=== PATIENT | female | born 1950 | race Caucasian/White ===

== ENCOUNTER 2020-04-18 10:47 | Observation (INO) | payer MEDICARE, OTHER ==
[2020-04-18] MEDS ORDERED: FOLIC ACID-VIT B COMPLEX-VIT C 1 CAP PO SCH (12:00)
--- NOTE | 2020-04-18 12:09 | ED ---
General Adult HPI - General Chief complaint: Recheck/Abnormal Lab/Rx Stated complaint: Dialysis complication Time Seen by Provider: 04/18/20 11:15 Source: patient, family, RN notes reviewed Mode of arrival: wheelchair Limitations: physical limitation - History of Present Illness Initial comments: This is a 69-year-old female presents emergency Department with chief complaint of left arm graft comp locations. Patient states she has a graft for dialysis. Patient states that they tried to access it but there was dark blood within the area. Patient's dialysis nurse discussed the case with Dr. Redd who recommended patient come to the emergency department. Patient has no specific complaints at this time. Patient's had multiple surgeries on her left arm for her graft for dialysis. Patient has a history of polycystic kidney disease causing her renal failure. - Related Data Home Medications Medication Instructions Recorded Confirmed ALPRAZolam [Xanax] 1 mg PO Q8H PRN 04/18/20 04/18/20 Apixaban [Eliquis] 2.5 mg PO BID 04/18/20 04/18/20 Atorvastatin [Lipitor] 40 mg PO HS 04/18/20 04/18/20 Calcium Acetate [PhosLo] 1,334 mg PO AC-TID 04/18/20 04/18/20 Carvedilol [Coreg] 3.125 mg PO TUTHSA 04/18/20 04/18/20 INSULIN LISPRO (humaLOG) [humaLOG] See Protocol SQ AC-TID PRN MDD 04/18/20 04/18/20 OVER 150 Insulin Degludec [Tresiba 10 units SQ DAILY 04/18/20 04/18/20 Flextouch U-100] Ketoconazole [Nizoral A-D] 1 applic TOPICAL DAILY 04/18/20 04/18/20 Levocetirizine Dihydrochloride 5 mg PO DAILY 04/18/20 04/18/20 Levothyroxine Sodium [Synthroid] 150 mcg PO DAILY 04/18/20 04/18/20 Lidocaine 5% Oint [Xylocaine 5% 1 applic TOPICAL BID PRN 04/18/20 04/18/20 Oint] Lidocaine-Prilocaine Cream [Emla 1 applic TOPICAL DIRECTED PRN 04/18/20 04/18/20 Cream 2.5%/2.5%] Linaclotide [Linzess] 290 mcg PO HS 04/18/20 04/18/20 Losartan Potassium 50 mg PO DAILY 04/18/20 04/18/20 Methadone HCl [Methadone Intensol] 120 mg PO DAILY 04/18/20 04/18/20 Nephro-Ann Tab 1 tab PO TUTHSA 04/18/20 04/18/20 Omeprazole 20 mg PO DAILY 04/18/20 04/18/20 carvediloL [Coreg] 6.25 mg PO HS 04/18/20 04/18/20 hydrALAZINE HCL [Apresoline] 50 mg PO Q8H 04/18/20 04/18/20 Allergies Allergy/AdvReac Type Severity Reaction Status Date / Time pentazocine [From Talwin] AdvReac Unknown Verified 04/18/20 12:09 Review of Systems ROS Statement: Those systems with pertinent positive or pertinent negative responses have been documented in the HPI. ROS Other: All systems not noted in ROS Statement are negative. Past Medical History Past Medical History: Cancer, Dementia, Hypertension, Renal Disease Additional Past Medical History / Comment(s): Vulva cancer, multicystic kidneys History of Any Multi-Drug Resistant Organisms: None Reported Past Surgical History: Adenoidectomy, Tonsillectomy Additional Past Surgical History / Comment(s): Left arm dialysis graft, left aka, MACULAR DEGENERATION Past Psychological History: No Psychological Hx Reported Smoking Status: Current every day smoker Past Alcohol Use History: None Reported Past Drug Use History: None Reported General Exam Limitations: physical limitation General appearance: alert, in no apparent distress Head exam: Present: atraumatic, normocephalic, normal inspection ENT exam: Present: normal exam, mucous membranes moist Neck exam: Present: normal inspection. Absent: tenderness, meningismus, lymphadenopathy Respiratory exam: Present: normal lung sounds bilaterally. Absent: respiratory distress, wheezes, rales, rhonchi, stridor Cardiovascular Exam: Present: regular rate, normal rhythm, normal heart sounds. Absent: systolic murmur, diastolic murmur, rubs, gallop, clicks Extremities exam: Present: other (Graft Of the left upper extremity noted, pulses are equal bilaterally the upper, left lower extremity AKA noted) Neurological exam: Present: alert, oriented X3 Skin exam: Present: warm, dry, intact, normal color. Absent: rash Course Vital Signs 04/18/20 04/18/20 04/18/20 11:10 11:20 13:00 Temperature 97.3 F L 97.4 F L Pulse Rate 58 L 83 Respiratory 18 18 20 Rate Blood Pressure 114/71 113/102 O2 Sat by Pulse 97 97 Oximetry - Reevaluation(s) Reevaluation #1: 04/18/20 12:[address] pryor in the emergency department. Medical Decision Making - Medical Decision Making Patient evaluated by vascular in emergency department. Patient be admitted for possible thrombectomy. Patient admitted to medicine with consult to vascular - Lab Data Result diagrams: 04/18/20 12:47 04/18/20 12:47 Lab Results 04/18/20 04/18/20 04/18/20 Range/Units 12:47 12:47 12:47 WBC 10.6 (3.8-10.6) k/uL RBC 3.55 L (3.80-5.40) m/uL Hgb 11.6 (11.4-16.0) gm/dL Hct 35.0 (34.0-46.0) % MCV 98.5 (80.0-100.0) fL MCH 32.7 (25.0-35.0) pg MCHC 33.2 (31.0-37.0) g/dL RDW 13.4 (11.5-15.5) % Plt Count 176 (150-450) k/uL MPV 9.0 Neutrophils % 55 % Lymphocytes % 30 % Monocytes % 6 % Eosinophils % 4 % Basophils % 2 % Neutrophils # 5.8 (1.3-7.7) k/uL Lymphocytes # 3.2 (1.0-4.8) k/uL Monocytes # 0.6 (0-1.0) k/uL Eosinophils # 0.4 (0-0.7) k/uL Basophils # 0.3 H (0-0.2) k/uL PT 11.7 (9.0-12.0) sec INR 1.2 H (<1.2) APTT 28.6 (22.0-30.0) sec Sodium 131 L (137-145) mmol/L Potassium 6.6 H* (3.5-5.1) mmol/L Chloride 93 L (98-107) mmol/L Carbon Dioxide 29 (22-30) mmol/L Anion Gap 9 mmol/L BUN 76 H (7-17) mg/dL Creatinine 6.68 H (0.52-1.04) mg/dL Est GFR (CKD-EPI)AfAm 7 (>60 ml/min/1.73 sqM) Est GFR (CKD-EPI)NonAf 6 (>60 ml/min/1.73 sqM) Glucose 89 (74-99) mg/dL Calcium 8.7 (8.4-10.2) mg/dL Phosphorus 5.2 H (2.5-4.5) mg/dL Magnesium 2.2 (1.6-2.3) mg/dL Total Bilirubin 0.6 (0.2-1.3) mg/dL AST 26 (14-36) U/L ALT 17 (4-34) U/L Alkaline Phosphatase 112 (38-126) U/L Total Protein 7.1 (6.3-8.2) g/dL Albumin 3.7 (3.5-5.0) g/dL Disposition Clinical Impression: Complication of vascular graft, Chronic renal failure, Hyperkalemia Disposition: ADMITTED IP TO THIS [facility] Condition: Fair Referrals: Nonstaff,Physician [REFERRING] - 1-2 days
[2020-04-18 13:27] LABS: Basophils # (A) 0.3 k/uL (0-0.2); Basophils % (A) 2 %; Eosinophils # (A) 0.4 k/uL (0-0.7); Eosinophils % (A) 4 %; HGB 11.6 gm/dL (11.4-16.0); Lymphocytes # (A) 3.2 k/uL (1.0-4.8); Lymphocytes % (A) 30 %; MCH 32.7 pg (25.0-35.0); MCHC 33.2 g/dL (31.0-37.0); MCV 98.5 fL (80.0-100.0); Monocytes # (A) 0.6 k/uL (0-1.0); Monocytes % (A) 6 %; Neutrophils # (A) 5.8 k/uL (1.3-7.7); Neutrophils % (A) 55 %; Platelet Count 176 k/uL (150-450); RBC 3.55 m/uL (3.80-5.40); RDW 13.4 % (11.5-15.5); WBC 10.6 k/uL (3.8-10.6)
[2020-04-18 13:39] LABS: Albumin 3.7 g/dL (3.5-5.0); Calcium 8.7 mg/dL (8.4-10.2); INR 1.2 (<1.2); Magnesium 2.2 mg/dL (1.6-2.3); Partial Thromboplastin Time 28.6 sec (22.0-30.0); Phosphorus 5.2 mg/dL (2.5-4.5); Prothrombin Time 11.7 sec (9.0-12.0); Total Bilirubin 0.6 mg/dL (0.2-1.3); Total Protein 7.1 g/dL (6.3-8.2)
[2020-04-18] MEDS ORDERED: NALOXONE 0.4 MG/ML 1 ML VIAL IV PRN ×2 (13:44→14:06)
[2020-04-18 13:45] LABS: Potassium 6.6 mmol/L (3.5-5.1)
[2020-04-18] MEDS ORDERED: DEXTROSE 50% SYRINGE 50 ML IVP STA (13:54)
[2020-04-18] MEDS ORDERED: INSULIN REGULAR 100 UNIT/ML VIAL IV ONE (13:54)
[2020-04-18] MEDS ORDERED: FUROSEMIDE 10 MG/ML 2 ML VIAL IV ONE (13:59)
[2020-04-18] MEDS ORDERED: ACETAMINOPHEN TAB 325 MG TAB PO PRN (14:06)
[2020-04-18] MEDS ORDERED: ALPRAZolam 1 MG TAB PO PRN (14:09)
[2020-04-18] MEDS ORDERED: LIDOCAINE 5% OINTMENT 50 GM JAR TOPICAL PRN (14:09)
[2020-04-18] MEDS ORDERED: LIDOCAINE-PRILOCAINE 2.5-2.5% CREAM 5 GM TUBE TOPICAL PRN (14:09)
[2020-04-18 15:09] LABS: Glucose,Whole Blood 141 mg/dL (75-99)
--- NOTE | 2020-04-18 15:28 | P.GSCN ---
History of Present Illness Consult date: 04/18/20 Reason for Consult: Malfunctioning upper extremity AV graft, ESRD Requesting physician: Go Arana History of present illness: Is a 69-year-old female patient who presented to the emergency department with a chief complaint that her left upper extremity AV graft was having complications during her hemodialysis yesterday. The patient states she gets hemodialysis Friday, , Friday over this week she was supposed to go Friday due to the holiday. She went yesterday for hemodi alysis however when they went to access the graft there was dark blood that appeared to be clotted. The patient states she has had multiple surgeries in the left upper extremity for her raft. I see the patient has a past medical history that includes hypertension, diabetes mellitus, AKA, and end stage renal disease along with vulvar cancer. The patient states her renal disease and hemodialysis is related to multicystic kidneys. 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 Admission labs WBC 10.6, hemoglobin 11.6, hematocrit 35, platelets 176, INR 1.2. Sodium 131, potassium 6.6, chloride 93, BUN 76 and creatinine 6.68. The patient takes Eliquis 2.5 mg BID Review of Systems A 14 point review of system was completed all pertinent positives and negatives as stated in the HPI Past Medical History Past Medical History: Cancer, Dementia, Hypertension, Renal Disease Additional Past Medical History / Comment(s): Vulva cancer, multicystic kidneys History of Any Multi-Drug Resistant Organisms: None Reported Past Surgical History: Adenoidectomy, Tonsillectomy Additional Past Surgical History / Comment(s): Left arm dialysis graft, left aka, MACULAR DEGENERATION Past Psychological History: No Psychological Hx Reported Smoking Status: Current every day smoker Past Alcohol Use History: None Reported Past Drug Use History: None Reported Medications and Allergies Home Medications Medication Instructions Recorded Confirmed Type ALPRAZolam [Xanax] 1 mg PO Q8H PRN 04/18/20 04/18/20 History Apixaban [Eliquis] 2.5 mg PO BID 04/18/20 04/18/20 History Atorvastatin [Lipitor] 40 mg PO HS 04/18/20 04/18/20 History Calcium Acetate [PhosLo] 1,334 mg PO AC-TID 04/18/20 04/18/20 History Carvedilol [Coreg] 3.125 mg PO TUTHSA 04/18/20 04/18/20 History INSULIN LISPRO (humaLOG) [humaLOG] See Protocol SQ AC-TID PRN MDD 04/18/20 History OVER 150 Insulin Degludec [Tresiba 10 units SQ DAILY 04/18/20 04/18/20 History Flextouch U-100] Ketoconazole [Nizoral A-D] 1 applic TOPICAL DAILY 04/18/20 04/18/20 History Levocetirizine Dihydrochloride 5 mg PO DAILY 04/18/20 04/18/20 History Levothyroxine Sodium [Synthroid] 150 mcg PO DAILY 04/18/20 04/18/20 History Lidocaine 5% Oint [Xylocaine 5% 1 applic TOPICAL BID PRN 04/18/20 04/18/20 History Oint] Lidocaine-Prilocaine Cream [Emla 1 applic TOPICAL DIRECTED PRN 04/18/20 04/18/20 History Cream 2.5%/2.5%] Linaclotide [Linzess] 290 mcg PO HS 04/18/20 04/18/20 History Losartan Potassium 50 mg PO DAILY 04/18/20 04/18/20 History Methadone HCl [Methadone Intensol] 120 mg PO DAILY 04/18/20 04/18/20 History Nephro-Ann Tab 1 tab PO TUTHSA 04/18/20 04/18/20 History Omeprazole 20 mg PO DAILY 04/18/20 04/18/20 History carvediloL [Coreg] 6.25 mg PO HS 04/18/20 04/18/20 History hydrALAZINE HCL [Apresoline] 50 mg PO Q8H 04/18/20 04/18/20 History Allergies Allergy/AdvReac Type Severity Reaction Status Date / Time pentazocine [From Kimmie] AdvReac Unknown Verified 04/18/20 12:09 Surgical - Exam Vital Signs Temp Pulse Resp BP Pulse Ox 97.3 F L 58 L 18 114/71 97 04/18/20 11:10 04/18/20 11:10 04/18/20 11:10 04/18/20 11:10 04/18/20 11:10 General appearance: The patient is alert, oriented, in no acute distress. HET: Head is normocephalic and atraumatic. Neck: Supple without lymphadenopathy. Trachea midline. Heart: S1 S2. Regular rate and rhythm. Lungs: No crackles or wheezes are heard. Abdomen: Soft, nontender, nondistended. Extremities: Normal skin color and turgor. Left [id number] amputation. Right lower extremity without any edema. Radial pulses are 2/4 bilaterally. No palpable thrill at the left upper extremity AV graft. Neurological: No focal deficits. Strength and sensation are grossly intact. Results - Labs 04/18/20 12:47 04/18/20 12:47 Abnormal Lab Results - Last 24 Hours (Table) 04/18/20 04/18/20 04/18/20 Range/Units 12:47 12:47 12:47 RBC 3.55 L (3.80-5.40) m/uL Basophils # 0.3 H (0-0.2) k/uL INR 1.2 H (<1.2) Sodium 131 L (137-145) mmol/L Potassium 6.6 H* (3.5-5.1) mmol/L Chloride 93 L (98-107) mmol/L BUN 76 H (7-17) mg/dL Creatinine 6.68 H (0.52-1.04) mg/dL Phosphorus 5.2 H (2.5-4.5) mg/dL Diabetes panel 04/18/20 Range/Units 12:47 Sodium 131 L (137-145) mmol/L Potassium 6.6 H* (3.5-5.1) mmol/L Chloride 93 L (98-107) mmol/L Carbon Dioxide 29 (22-30) mmol/L BUN 76 H (7-17) mg/dL Creatinine 6.68 H (0.52-1.04) mg/dL Glucose 89 (74-99) mg/dL Calcium 8.7 (8.4-10.2) mg/dL AST 26 (14-36) U/L ALT 17 (4-34) U/L Alkaline Phosphatase 112 (38-126) U/L Total Protein 7.1 (6.3-8.2) g/dL Albumin 3.7 (3.5-5.0) g/dL Calcium panel 04/18/20 Range/Units 12:47 Calcium 8.7 (8.4-10.2) mg/dL Phosphorus 5.2 H (2.5-4.5) mg/dL Albumin 3.7 (3.5-5.0) g/dL Pituitary panel 04/18/20 Range/Units 12:47 Sodium 131 L (137-145) mmol/L Potassium 6.6 H* (3.5-5.1) mmol/L Chloride 93 L (98-107) mmol/L Carbon Dioxide 29 (22-30) mmol/L BUN 76 H (7-17) mg/dL Creatinine 6.68 H (0.52-1.04) mg/dL Glucose 89 (74-99) mg/dL Calcium 8.7 (8.4-10.2) mg/dL Adrenal panel 04/18/20 Range/Units 12:47 Sodium 131 L (137-145) mmol/L Potassium 6.6 H* (3.5-5.1) mmol/L Chloride 93 L (98-107) mmol/L Carbon Dioxide 29 (22-30) mmol/L BUN 76 H (7-17) mg/dL Creatinine 6.68 H (0.52-1.04) mg/dL Glucose 89 (74-99) mg/dL Calcium 8.7 (8.4-10.2) mg/dL Total Bilirubin 0.6 (0.2-1.3) mg/dL AST 26 (14-36) U/L ALT 17 (4-34) U/L Alkaline Phosphatase 112 (38-126) U/L Total Protein 7.1 (6.3-8.2) g/dL Albumin 3.7 (3.5-5.0) g/dL Assessment and Plan Assessment: 1. Nonfunctioning left upper extremity AV graft 2. End-stage renal disease requiring hemodialysis 3. Hyponatremia 4. Hyperkalemia Plan: The patient is scheduled for a fistulogram with possible thrombectomy with Dr. Rayo this afternoon. Emergency room nurse to be in contact with nephrology regarding proceeding with fistulogram with possible thrombectomy or if they feel patient will need emergent hemodialysis with a temporary site before proceeding with possible thrombectomy. Dr. Hernandez has been contacted and recommends temporary hemodialysis catheter at the bedside with a 2 hour hemodialysis treatment. We'll cancel the fistulogram with possible thrombectomy for today. Hemodialysis per recommendations from nephrology. Repeat labs in the morning. Further recommendations to follow. Thank you for this consultation allowing us take part in the plan of care of your patient during her hospital stay. The impression and plan of care has been dictated as directed. I performed a history and examination of this patient, discussed the same with the dictator. I agree with the dictator's note ,documented as a scribe. Any additional findings or plans will be noted.
[2020-04-18] MEDS ORDERED: CALCIUM GLUCONATE 1 GM in SODIUM CHLORIDE 0.9% 100 ML IVPB ONE (16:00)
[2020-04-18] MEDS ORDERED: HEPARIN SODIUM,PORCINE 5,000 UNIT/ML 1 ML VIAL SQ SCH (16:00)
[2020-04-18] MEDS: hydrALAZINE HCL 50 MG TAB PO SCH (16:23)
--- NOTE | 2020-04-18 16:27 | P.HPIM ---
History of Present Illness H&P Date: 04/18/20 Chief Complaint: Thrombosed fistula 69 year old woman with ESRD, HTN, Dementia, Chronic Methadone Use presented at request from her nephrology provider for fistula access issues. Patient herself has no complaints. She relays to me that she went to dialysis for her routine session, however, when the dialysis nurse attempted to access her fistula, she tiesha back thick, dark blood. This was discussed with her stake driver and patient was asked to come to the emergency room for evaluation by vascular surgery. In the ER, she was found to have a thrombosed fistula and plan is to take her to the OR for thrombectomy and dialysis afterward. Her BMP was notable for elevated K to 6.8, for which she rec'd D50/Insulin. Review of Systems All Systems reviewed and pertinent positives and negatives noted in HPI, all other symptoms are negative Past Medical History Past Medical History: Cancer, Dementia, Hypertension, Renal Disease Additional Past Medical History / Comment(s): Vulva cancer, multicystic kidneys History of Any Multi-Drug Resistant Organisms: None Reported Past Surgical History: Adenoidectomy, Tonsillectomy Additional Past Surgical History / Comment(s): Left arm dialysis graft, left aka , MACULAR DEGENERATION Past Psychological History: No Psychological Hx Reported Smoking Status: Current every day smoker Past Alcohol Use History: None Reported Past Drug Use History: None Reported Medications and Allergies Home Medications Medication Instructions Recorded Confirmed Type ALPRAZolam [Xanax] 1 mg PO Q8H PRN 04/18/20 04/18/20 History Apixaban [Eliquis] 2.5 mg PO BID 04/18/20 04/18/20 History Atorvastatin [Lipitor] 40 mg PO HS 04/18/20 04/18/20 History Calcium Acetate [PhosLo] 1,334 mg PO AC-TID 04/18/20 04/18/20 History Carvedilol [Coreg] 3.125 mg PO TUTHSA 04/18/20 04/18/20 History INSULIN LISPRO (humaLOG) [humaLOG] See Protocol SQ AC-TID PRN MDD 04/18/20 04/18/20 History OVER 150 Insulin Degludec [Tresiba 10 units SQ DAILY 04/18/20 04/18/20 History Flextouch U-100] Ketoconazole [Nizoral A-D] 1 applic TOPICAL DAILY 04/18/20 04/18/20 History Levocetirizine Dihydrochloride 5 mg PO DAILY 04/18/20 04/18/20 History Levothyroxine Sodium [Synthroid] 150 mcg PO DAILY 04/18/20 04/18/20 History Lidocaine 5% Oint [Xylocaine 5% 1 applic TOPICAL BID PRN 04/18/20 04/18/20 History Oint] Lidocaine-Prilocaine Cream [Emla 1 applic TOPICAL DIRECTED PRN 04/18/20 04/18/20 History Cream 2.5%/2.5%] Linaclotide [Linzess] 290 mcg PO HS 04/18/20 04/18/20 History Losartan Potassium 50 mg PO DAILY 04/18/20 04/18/20 History Methadone HCl [Methadone Intensol] 120 mg PO DAILY 04/18/20 04/18/20 History Nephro-Ann Tab 1 tab PO TUTHSA 04/18/20 04/18/20 History Omeprazole 20 mg PO DAILY 04/18/20 04/18/20 History carvediloL [Coreg] 6.25 mg PO HS 04/18/20 04/18/20 History hydrALAZINE HCL [Apresoline] 50 mg PO Q8H 04/18/20 04/18/20 History Allergies Allergy/AdvReac Type Severity Reaction Status Date / Time pentazocine [From Kimmie] AdvReac Unknown Verified 04/18/20 12:09 Physical Exam Osteopathic Statement: *. No significant issues noted on an osteopathic structural exam other than those noted in the History and Physical/Consult. Vitals: Vital Signs Temp Pulse Resp BP Pulse Ox 04/18/20 14:52 63 18 110/56 97 04/18/20 13:00 97.4 F L 83 20 113/102 97 04/18/20 11:20 18 04/18/20 11:10 97.3 F L 58 L 18 114/71 97 Intake and Output 04/18/20 04/18/20 04/18/20 06:59 14:59 22:59 Other: Weight 63.503 kg Gen: awake, alert HEENT: normocephalic, atraumatic, good hearing acuity, moist mucous membranes Resp: CTAB, good air exchange, no accessory muscle use, no wheezes, crackles, rhonchi CVS: good distal perfusion x 4, RRR, no murmurs, clicks, gallops GI: soft, NTTP, ND : no SPT, no CVAT, mayorga catheter not present MSK: no pitting edema, no clubbing Neuro: non-focal, no sensory deficits, appropriate tone Psych: cooperative, euthymic mood Results CBC & Chem 7: 04/18/20 12:47 04/18/20 12:47 Labs: Abnormal Lab Results - Last 24 Hours (Table) 04/18/20 04/18/20 04/18/20 Range/Units 12:47 12:47 12:47 RBC 3.55 L (3.80-5.40) m/uL Basophils # 0.3 H (0-0.2) k/uL INR 1.2 H (<1.2) Sodium 131 L (137-145) mmol/L Potassium 6.6 H* (3.5-5.1) mmol/L Chloride 93 L (98-107) mmol/L BUN 76 H (7-17) mg/dL Creatinine 6.68 H (0.52-1.04) mg/dL POC Glucose (mg/dL) (75-99) mg/dL Phosphorus 5.2 H (2.5-4.5) mg/dL 04/18/20 Range/Units 15:08 RBC (3.80-5.40) m/uL Basophils # (0-0.2) k/uL INR (<1.2) Sodium (137-145) mmol/L Potassium (3.5-5.1) mmol/L Chloride (98-107) mmol/L BUN (7-17) mg/dL Creatinine (0.52-1.04) mg/dL POC Glucose (mg/dL) 141 H (75-99) mg/dL Phosphorus (2.5-4.5) mg/dL Assessment and Plan Assessment: 1. A-V Fistula Thombosis 2. ESRD on iHD 3. Dementia 4. Chronic Methadone Use 5. Hypertension 69 year old ESRD patient presented after her dialysis center had trouble accessing her fistula; sent by her stake driver for evaluation by vascular surgery in the ER. Plan: - admit to observation, telemetry - plan for OR today, then iHD afterward - vascular c/s - nephrology c/s - s/p D50/Insulin - daily BMP, Mg - home medications were reconciled Full Code
--- NOTE | 2020-04-18 18:34 | P.PCN ---
Date of Procedure: 04/18/20 Preoperative Diagnosis: chronic kidney disease, thrombosed left upper extremity brachial axillary graft Postoperative Diagnosis: same Procedure(s) Performed: right femoral vein temporary hemodialysis catheter placement under ultrasound guidance Anesthesia: local Surgeon: Ubaldo Rayo Estimated Blood Loss (ml): 5 Pathology: none sent Disposition: floor Indications for Procedure: 69-year-old female with history of end-stage renal disease on hemodialysis via left upper extremity brachial axillary vein graft presented to the emergency department secondary to thrombosed graft noted at the dialysis center. Her last dialysis was on Friday and her labs demonstrated significant elevation of her potassium therefore she is in need of hemodialysis. We were gone to perform a percutaneous thrombectomy of the graft and with attempt to revascularize but due to her electrolyte abnormalities she will need dialysis prior to any surgical intervention. Description of Procedure: After written informed consent was obtained and all risks, benefits, competition s were described the procedure was performed at bedside. Utilizing ultrasound the right common femoral vein was visualized and shown to be patent without any thrombus. Utilizing a multipurpose needle the right common femoral vein was accessed. Dark nonpulsatile blood flow was visualized. Guidewire was placed and needle was removed. Serial dilation was then performed and a 20 cm straight Mahurkar dialysis catheter was then guided over the guidewire. Guidewire was then removed and ports were assessed for patency. All ports were easily flushed and hep-locked. The catheter was then sutured in place with nylon suture. The area was then cleansed and dressings were placed. Patient tolerated procedure well.
[2020-04-18] MEDS: CALCIUM ACETATE 667 MG TAB PO SCH (18:35)
[2020-04-18] MEDS: INSULIN ASPART (NovoLOG) 100 UNIT/ML VIAL SQ SCH (18:35)
[2020-04-18 20:04] LABS: Glucose,Whole Blood 156 mg/dL (75-99)
[2020-04-18] MEDS: LINACLOTIDE 290 MCG PO SCH (22:17)
[2020-04-18] MEDS: ATORVASTATIN 40 MG TAB PO SCH (22:17)
[2020-04-18] MEDS: APIXABAN 2.5 MG TABLET PO SCH (22:17)
[2020-04-18] MEDS: carvediloL 6.25 MG TAB PO SCH (22:17)
[2020-04-19] MEDS: hydrALAZINE HCL 50 MG TAB PO SCH ×3 (00:15→17:03)
[2020-04-19 06:51] LABS: Glucose,Whole Blood 135 mg/dL (75-99)
[2020-04-19] MEDS: CALCIUM ACETATE 667 MG TAB PO SCH ×3 (09:22→18:01)
[2020-04-19 09:28] LABS: Basophils # (A) 0.1 k/uL (0-0.2); Basophils % (A) 1 %; Eosinophils # (A) 0.2 k/uL (0-0.7); Eosinophils % (A) 3 %; HCT 34.1 % (34.0-46.0); Lymphocytes # (A) 2.5 k/uL (1.0-4.8); Lymphocytes % (A) 30 %; MCHC 32.3 g/dL (31.0-37.0); MCV 99.2 fL (80.0-100.0); Mean Platelet Volume 9.2; Monocytes # (A) 0.7 k/uL (0-1.0); Monocytes % (A) 8 %; Neutrophils # (A) 4.6 k/uL (1.3-7.7); Neutrophils % (A) 55 %; Platelet Count 189 k/uL (150-450); RBC 3.43 m/uL (3.80-5.40); RDW 13.6 % (11.5-15.5); WBC 8.3 k/uL (3.8-10.6)
[2020-04-19 09:49] LABS: Calcium 8.7 mg/dL (8.4-10.2); Magnesium 2.2 mg/dL (1.6-2.3); Potassium 5.3 mmol/L (3.5-5.1)
[2020-04-19] MEDS ORDERED: IV FLUID CONTINUATION 1,000 ML IV ONE (10:44)
[2020-04-19] MEDS: LIDOCAINE 1% INJ 10MG/ML (20 ML MDV) SQ ONE ×2 (10:51→11:32)
[2020-04-19] MEDS ORDERED: ALTEPLASE BOLUS 1 MG/1 ML SYRINGE IV STA (10:57)
[2020-04-19] MEDS ORDERED: ALTEPLASE 2 MG VIAL (CATHFLO) IV STA (11:02)
[2020-04-19] MEDS ORDERED: ALTEPLASE BOLUS 1 MG/1 ML SYRINGE IV ONE (11:08)
[2020-04-19] MEDS ORDERED: MIDAZOLAM 2 MG/2 ML VIAL IV ONE ×2 (11:26→13:04)
[2020-04-19] MEDS ORDERED: fentaNYL (PF) 50 MCG/ML 2 ML AMP IVP ONE (11:33)
[2020-04-19] MEDS ORDERED: IOPAMIDOL-250 50ML BTL INTRAARTER ONE (12:20)
[2020-04-19] MEDS ORDERED: LIDOCAINE 1% INJ 10MG/ML (20 ML MDV) SQ ONE (13:03)
[2020-04-19] MEDS ORDERED: HYDROmorphone 1 MG/ML 1 ML SYRINGE IVP ONE (13:04)
--- NOTE | 2020-04-19 13:39 | P.OP ---
Date of Procedure: 04/19/20 Description of Procedure: Preoperative diagnosis: ESRD, malfunctioning LUE AVG Postoperative diagnosis: Same Procedure: 1. US guided right internal jugular vein access #2 superior venacavogram with interpretation #3 placement of tunneled central line for hemodialysis #4 24 minutes moderate conscious sedation 5. Removal of right femoral vein central venous catheter Surgeon: Abby Redd D.O. EBL: Less than 10 mL IV fluids: [See records] Urine output: [None] Drains: [None] Complications: [None immediately apparent] Condition: [Stable] Operative indication and findings: [The patient is a 69 old female with a previous left upper extremity brachial to axillary graft. It was found to be thrombosed yesterday and she underwent placement of a temporary central venous catheter for dialysis in her femoral vein. Today she underwent attempted thrombolysis to reopen her fistula but it was found to be inadequate for continued dialysis due to significant venous outflow obstructions. The plan was then to take and place a tunneled dialysis catheter. Verbal consent was obtained over the phone from the patient's family. At the time of the procedure there was some resistance upon passing the wire initially therefore micro-axis was utilized. A superior venacavogram was performed with no significant obvious areas of obstruction, likely there is some degree of stenosis at the internal jugular but unable to demonstrate via venography] Procedure in detail: [Patient was taken to the special suite from a previous procedure, the right neck was prepped and draped in usual sterile fashion and preprocedure timeout was performed and all parties in agreement. The offset was utilized in the right internal jugular vein was identified the skin overlying was anesthetized 1% lidocaine plain. Using a multipurpose needle the vein was accessed with return of dark venous nonpulsatile blood. A guidewire was passed did not continue into the superior vena cava. At that point the wire and needle were removed and this was performed again, with axis on first stick once more. Again the same issue happening was confirmed with fluoroscopy that the wire was passing the needle into the internal jugular, but there was no ability to pass the wire further. Attempts were made to perform a venogram through the needle but with the patient's respirations and fluctuation of her vein, there was no ability to do so from this. At that point a micro-needle was used, a microwire passed easily into the superior vena cava and a microcatheter was placed. A superior venacavogram was performed without any significant or obvious areas of stenosis. A guidewire was placed down into the inferior vena cava. At that point tunnel was anesthetized and neck and the skin was made in the anterior chest wall proximal and 2 cm inferior to the clavicle. The catheter was tunneled. Serial dilation was performed over the wire under fluoroscopic visualization. The tear-away sheath was placed. The previous a tunneled catheter was placed through the tear-away sheath and the tear-away sheath was and removed. The catheter was aspirated and flushed freely. Heparinized saline was instilled. The neck incision was reapproximated with interrupted sutures of 4-0 Vicryl. The catheter was sutured in place with 3-0 nylon. Dressings were placed. The catheter from the right femoral vein was removed. The patient was allowed to awaken from sedation and transported to recovery in stable condition. A post procedure chest x-ray is pending.
--- NOTE | 2020-04-19 14:42 | XR ---
EXAMINATION TYPE: XR chest 1V portable DATE OF EXAM: 04/19/2020 HISTORY: Shortness of breath. COMPARISON: None. TECHNIQUE: Single view of the chest is submitted. FINDINGS: Demonstrated are scattered senescent parenchymal change. There is no evidence for focal infiltrate. Double-lumen central venous line with its distal tip overl guille the SVC. No evidence for pneumothorax. The heart is stable. Hilar and mediastinal structures are within normal limits. Degenerative changes are seen of the dorsal spine. IMPRESSION: 1. Chronic changes without evidence for acute pulmonary disease.
--- NOTE | 2020-04-19 16:00 | P.NPCON ---
History of Present Illness - Reason for Consult end stage renal disease - History of Present Illness Reason for consultation: End-stage renal disease History of present illness: Patient is a 69-year-old female seen in renal consultation for end-stage renal disease. She is maintained on hemodialysis on Friday schedule. She went for dialysis on Friday due to holiday schedule and her AV graft was clotted. Therefore she came to the hospital. She underwent declot of the AV graft today but was unsuccessful. She had a permacath placed. She also underwent femoral catheter placement yesterday before she went for the declot as a potassium was high. She completed hemodialysis and then went for the declot. Femoral catheter has been discontinued. She is currently seen while undergoing hemodialysis using a permacath. Denies chest pain or shortness of breath. Oral intake is good. No vomiting or diarrhea. No fever or chills. Potassium level was 5.3 this morning. Blood pressure stable. She does make urine. No active complaints. She wants to go home. Vital signs are stable. General: The patient appeared well nourished and normally developed. HEENT: Head exam is unremarkable. Neck is without jugular venous distension. LUNGS: Breath sounds decreased. HEART: Rate and Rhythm are regular. ABDOMEN: Soft, nontender. EXTREMITITES: No edema. Past Medical History Past Medical History: Cancer, Dementia, Hypertension, Renal Disease Additional Past Medical History / Comment(s): Vulva cancer, multicystic kidneys History of Any Multi-Drug Resistant Organisms: None Reported Past Surgical History: Adenoidectomy, Tonsillectomy Additional Past Surgical History / Comment(s): Left arm dialysis graft, left aka, MACULAR DEGENERATION Past Anesthesia/Blood Transfusion Reactions: No Reported Reaction Past Psychological History: No Psychological Hx Reported Smoking Status: Current every day smoker Past Alcohol Use History: None Reported Past Drug Use History: None Reported Medications and Allergies Home Medications Medication Instructions Recorded Confirmed Type ALPRAZolam [Xanax] 1 mg PO Q8H PRN 04/18/20 04/18/20 History Apixaban [Eliquis] 2.5 mg PO BID 04/18/20 04/18/20 History Atorvastatin [Lipitor] 40 mg PO HS 04/18/20 04/18/20 History Calcium Acetate [PhosLo] 1,334 mg PO AC-TID 04/18/20 04/18/20 History Carvedilol [Coreg] 3.125 mg PO TUTHSA 04/18/20 04/18/20 History INSULIN LISPRO (humaLOG) [humaLOG] See Protocol SQ AC-TID PRN MDD 04/18/20 04/18/20 History OVER 150 Insulin Degludec [Tresiba 10 units SQ DAILY 04/18/20 04/18/20 History Flextouch U-100] Ketoconazole [Nizoral A-D] 1 applic TOPICAL DAILY 04/18/20 04/18/20 History Levocetirizine Dihydrochloride 5 mg PO DAILY 04/18/20 04/18/20 History Levothyroxine Sodium [Synthroid] 150 mcg PO DAILY 04/18/20 04/18/20 History Lidocaine 5% Oint [Xylocaine 5% 1 applic TOPICAL BID PRN 04/18/20 04/18/20 History Oint] Lidocaine-Prilocaine Cream [Emla 1 applic TOPICAL DIRECTED PRN 04/18/20 04/18/20 History Cream 2.5%/2.5%] Linaclotide [Linzess] 290 mcg PO HS 04/18/20 04/18/20 History Losartan Potassium 50 mg PO DAILY 04/18/20 04/18/20 History Methadone HCl [Methadone Intensol] 120 mg PO DAILY 04/18/20 04/18/20 History Nephro-Ann Tab 1 tab PO TUTHSA 04/18/20 04/18/20 History Omeprazole 20 mg PO DAILY 04/18/20 04/18/20 History carvediloL [Coreg] 6.25 mg PO HS 04/18/20 04/18/20 History hydrALAZINE HCL [Apresoline] 50 mg PO Q8H 04/18/20 04/18/20 History Allergies Allergy/AdvReac Type Severity Reaction Status Date / Time pentazocine [From Kimmie] AdvReac Unknown Verified 04/18/20 12:09 Physical Exam Vitals: Vital Signs Temp Pulse Resp BP Pulse Ox 04/19/20 14:03 98.8 F 18 148/52 04/19/20 09:05 98.1 F 72 18 150/70 95 04/19/20 04:00 99.0 F 73 18 144/65 94 L 04/19/20 00:00 97.3 F L 74 18 136/62 94 L 04/18/20 20:58 97.4 F L 76 16 123/51 04/18/20 20:00 97.7 F 75 18 124/67 93 L 04/18/20 18:31 97.4 F L 60 18 114/50 94 L Intake and Output 04/19/20 04/19/20 04/19/20 06:59 14:59 22:59 Intake Total 50 Output Total 0 1050 Balance 0 -1000 Intake: IV 50 Oral 0 Output: Urine 0 100 Hemodialysis 400 Estimated Blood Loss 550 Other: # Voids 1 # Bowel Movements 0 Weight 139.5 kg Results - Lab Results Most recent lab results Calcium 8.7 mg/dL (8.4-10.2) 04/19/20 07:37 Phosphorus 5.2 mg/dL (2.5-4.5) H 04/18/20 12:47 Magnesium 2.2 mg/dL (1.6-2.3) 04/19/20 07:37 04/19/20 07:37 04/19/20 07:37 Assessment and Plan Plan: Assessment: 1. End-stage renal disease maintained on hemodialysis on Friday schedule. 2. Clotted AV graft status post unsuccessful declot attempt this morning. 3. Hyperkalemia status post urgent hemodialysis yesterday. 4. Status post permacath placement this morning. 5. Diabetes mellitus. 6. Hypertension with chronic kidney disease. Stable. Plan: Currently seen while undergoing hemodialysis. Next treatment on Friday. Monitor hemoglobin and she did have a hematoma at the femoral catheter site. Potential discharge tomorrow. Thank you for the consultation. I will continue to follow the patient with you during her hospital stay.
[2020-04-19] MEDS: INSULIN ASPART (NovoLOG) 100 UNIT/ML VIAL SQ SCH ×3 (16:51→18:01)
[2020-04-19] MEDS: INSULIN DETEMIR (LEVEMIR) 100 UNIT/ML SYR SQ SCH (16:51)
[2020-04-19] MEDS: KETOCONAZOLE 2% SHAMPOO 1 APPLIC/ML TOPICAL SCH (16:52)
[2020-04-19] MEDS: APIXABAN 2.5 MG TABLET PO SCH ×2 (16:52→20:52)
[2020-04-19] MEDS: LOSARTAN 50 MG TAB PO SCH (16:53)
[2020-04-19] MEDS: LEVOTHYROXINE 75 MCG TAB PO SCH (16:53)
[2020-04-19] MEDS: LORATADINE 10 MG TAB PO SCH (16:56)
[2020-04-19] MEDS: PANTOPRAZOLE 40 MG TABLET PO SCH (16:56)
[2020-04-19] MEDS: METHADONE 10 MG TAB PO SCH ×2 (16:57→23:23)
[2020-04-19 17:17] LABS: Glucose,Whole Blood 185 mg/dL (75-99)
--- NOTE | 2020-04-19 17:17 | IR ---
EXAMINATION TYPE: IR mech remov intraluminal mat DATE OF EXAM: 04/19/2020 COMPARISON: NONE HISTORY: Process of AV fistula TECHNIQUE: Fluoroscopy. FINDINGS: Fluoroscopic guidance was provided during procedure for performing physician. A total of 17.5 minutes of fluoroscopic time was utilized during the procedure and 424 images acquired. Please s ee operative report for additional details. IMPRESSION: As Above.
--- NOTE | 2020-04-19 17:18 | IR ---
EXAMINATION TYPE: IR cvc insert central tunneled DATE OF EXAM: 04/19/2020 COMPARISON: NONE HISTORY: Dialysis. Thrombosis of AV fistula. TECHNIQUE: Fluoroscopy. FINDINGS: Fluoroscopic guidance was provided during procedure for performing physician. A total of 0.9 minutes of fluoroscopic time was utilized during the procedure and 56 images acquired. IMPRESSION: As Above.
--- NOTE | 2020-04-19 17:59 | P.PN ---
Subjective Progress Note Date: 04/19/20 Pt had unsuccessful thrombectomy, and had permacath placement. Now undergoing dialysis. Objective - Vital Signs Vital signs: Vital Signs Temp 98.8 F 04/19/20 17:31 Pulse 91 04/19/20 17:31 Resp 18 04/19/20 17:31 BP 127/69 04/19/20 17:31 Pulse Ox 95 04/19/20 09:05 Intake & Output 04/18/20 04/19/20 04/19/20 18:59 06:59 18:59 Intake Total 225 50 Output Total 500 1720 Balance 225 -500 -1670 Weight 63.503 kg 139.5 kg Intake: IV 50 Oral 225 0 Output: Urine 0 100 Hemodialysis 500 1070 Estimated Blood Loss 550 Other: # Voids 1 # Bowel Movements 0 - Exam Gen: awake, alert HEENT: normocephalic, atraumatic, good hearing acuity, moist mucous membranes Resp: CTAB, good air exchange, no accessory muscle use, no wheezes, crackles, rhonchi CVS: good distal perfusion x 4, RRR, no murmurs, clicks, gallops GI: soft, NTTP, ND : no SPT, no CVAT, mayorga catheter not present MSK: no pitting edema, no clubbing Neuro: non-focal, no sensory deficits, appropriate tone Psych: cooperative, euthymic mood - Labs CBC & Chem 7: 04/19/20 07:37 04/19/20 07:37 Labs: Abnormal Lab Results - Last 24 Hours (Table) 04/18/20 04/18/20 04/19/20 Range/Units 20:03 Unknown 06:49 RBC (3.80-5.40) m/uL Hgb (11.4-16.0) gm/dL Potassium 5.4 H (3.5-5.1) mmol/L BUN (7-17) mg/dL Creatinine (0.52-1.04) mg/dL Glucose (74-99) mg/dL POC Glucose (mg/dL) 156 H 135 H (75-99) mg/dL 04/19/20 04/19/20 04/19/20 Range/Units 07:37 07:37 17:16 RBC 3.43 L (3.80-5.40) m/uL Hgb 11.0 L (11.4-16.0) gm/dL Potassium 5.3 H (3.5-5.1) mmol/L BUN 45 H (7-17) mg/dL Creatinine 4.86 H (0.52-1.04) mg/dL Glucose 121 H (74-99) mg/dL POC Glucose (mg/dL) 185 H (75-99) mg/dL Assessment and Plan Assessment: 1. A-V Fistula Thombosis 2. ESRD on iHD 3. Dementia 4. Chronic Methadone Use 5. Hypertension 69 year old ESRD patient presented after her dialysis center had trouble accessing her fistula; sent by her sox analyst for evaluation by vascular surgery in the ER. Plan: - admit to observation, telemetry - s/p permacath, now undergoing iHD - vascular c/s - nephrology c/s - s/p D50/Insulin - daily BMP, Mg - home medications were reconciled Full Code
[2020-04-19 20:39] LABS: Glucose,Whole Blood 195 mg/dL (75-99)
[2020-04-19] MEDS: ATORVASTATIN 40 MG TAB PO SCH (20:52)
[2020-04-19] MEDS: carvediloL 6.25 MG TAB PO SCH (20:53)
[2020-04-19] MEDS: LINACLOTIDE 290 MCG PO SCH (23:27)
[2020-04-20] MEDS: hydrALAZINE HCL 50 MG TAB PO SCH ×2 (00:15→11:34)
[2020-04-20 06:14] LABS: Glucose,Whole Blood 204 mg/dL (75-99)
[2020-04-20] MEDS: INSULIN ASPART (NovoLOG) 100 UNIT/ML VIAL SQ SCH (07:04)
[2020-04-20] MEDS: PANTOPRAZOLE 40 MG TABLET PO SCH (07:04)
[2020-04-20] MEDS: CALCIUM ACETATE 667 MG TAB PO SCH (07:04)
[2020-04-20] MEDS: LEVOTHYROXINE 75 MCG TAB PO SCH (07:04)
[2020-04-20] MEDS: INSULIN DETEMIR (LEVEMIR) 100 UNIT/ML SYR SQ SCH (07:04)
[2020-04-20] MEDS ORDERED: carvediloL 3.125 MG TAB PO SCH (07:30)
[2020-04-20 08:53] LABS: Calcium 8.8 mg/dL (8.4-10.2); Potassium 4.6 mmol/L (3.5-5.1)
[2020-04-20] MEDS: LORATADINE 10 MG TAB PO SCH (09:02)
[2020-04-20] MEDS: KETOCONAZOLE 2% SHAMPOO 1 APPLIC/ML TOPICAL SCH (09:02)
[2020-04-20] MEDS: APIXABAN 2.5 MG TABLET PO SCH (09:02)
--- NOTE | 2020-04-20 09:09 | P.OP ---
Date of Procedure: 04/19/20 Preoperative Diagnosis: Thrombosed left upper extremity AVG, ESRD Postoperative Diagnosis: Same Procedure(s) Performed: Ultrasound guided left upper extremity AVG access Percutaneous thrombectomy with CAT 8 Penumbra Left upper extremity fistulagram Anesthesia: local Surgeon: Ubaldo Rayo Estimated Blood Loss (ml): 200 Pathology: none sent Condition: stable Disposition: floor Indications for Procedure: 69 year old female with history of ESRD on HD presented with a thrombosed left upper extremity AVG. She had elevated potassium and therefore required a temporary catheter placed in the right groin. She underwent dialysis and presents today for thrombectomy of the left upper extremity graft. Operative Findings: Small outflow veins, thrombus within graft. Description of Procedure: After written and informed consent was obtained the patient was brought to the wheelabrator operator and laid in a supine position with the left arm on an armboard. The area of the left arm was prepped and draped in usual sterile fashion. Utilizing ultrasound a 10 bahamian sheath was placed utilizing Seldinger technique. TPA was placed within the thrombosed graft to attempt to dissolve the clot and a CAT 8 Penumbra device was placed and multiple passes were performed and clot was removed. Fistulogram was taken and thrombosed graft was open with small, diminutive veins noted for the outflow. Attention was then placed to the inflow. Utilizing ultrasound another 10 bahamian sheath was placed toward the inflow and Penumbra was placed with multiple passes to remove clot from the inflow. Once completed fistulogram was taken revealing good inflow with out stenosis. The access sites were then closed with Prolene suture. Due to her diminutive outflow veins the graft is likely to fail once again and she needs revision of the graft. I discussed this with the data processing systems consultant who is in agreement and we will place a tunneled catheter as well. The area of the left arm was then cleansed and dressings were placed. Patient all tissues are well.
--- NOTE | 2020-04-20 09:17 | P.DS ---
Providers Date of admission: 04/18/20 13:52 Attending physician: Shraddha Henson MD Consults: 04/18/20 13:45 Consult Physician Routine Consulting Provider: Analisa Barrientos Consult Reason/Comments: Dialysis Do you want consulting provider notified?: Yes Consult Physician Urgent Consulting Provider: Abby Mayorga Consult Reason/Comments: vascular graft occlusion Do you want consulting provider notified?: Yes Primary care physician: Souleymane Shah [facility] Course: 1. A-V Fistula Thombosis 2. ESRD on iHD 3. Dementia 4. Chronic Methadone Use 5. Hypertension 69 year old ESRD patient presented after her dialysis center had trouble accessing her fistula; sent by her agriculture technician for evaluation by vascular surgery in the ER. Patient underwent unsuccessful thrombectomy with trial of tPA, and ultimately had permacath done. She rec'd her dialysis session, and remained asyptomatic throughout hospitalization. She was doing well on day of discharge and was sent home with routine follow up. Assessment: Gen: awake, alert HEENT: normocephalic, atraumatic, good hearing acuity, moist mucous membranes Resp: CTAB, good air exchange, no accessory muscle use, no wheezes, crackles, rhonchi CVS: good distal perfusion x 4, RRR, no murmurs, clicks, gallops GI: soft, NTTP, ND : no SPT, no CVAT, mayorga catheter not present MSK: no pitting edema, no clubbing Neuro: non-focal, no sensory deficits, appropriate tone Psych: cooperative, euthymic mood Patient Condition at Discharge: Good Plan - Discharge Summary Discharge Rx Participant: Yes New Discharge Prescriptions: New Acetaminophen Tab [Tylenol] 650 mg PO Q6HR PRN tab PRN Reason: Mild Pain Or Fever > 100.5 Continue Insulin Degludec [Tresiba Flextouch U-100] 10 units SQ DAILY INSULIN LISPRO (humaLOG) [humaLOG] See Protocol SQ AC-TID PRN MDD OVER 150 PRN Reason: Blood Sugar - High Omeprazole 20 mg PO DAILY Losartan Potassium 50 mg PO DAILY Linaclotide [Linzess] 290 mcg PO HS Lidocaine-Prilocaine Cream [Emla Cream 2.5%/2.5%] 1 applic TOPICAL DIRECTED PRN PRN Reason: PORT ACCESS Lidocaine 5% Oint [Xylocaine 5% Oint] 1 applic TOPICAL BID PRN PRN Reason: Pain Levothyroxine Sodium [Synthroid] 150 mcg PO DAILY Levocetirizine Dihydrochloride 5 mg PO DAILY hydrALAZINE HCL [Apresoline] 50 mg PO Q8H carvediloL [Coreg] 6.25 mg PO HS Carvedilol [Coreg] 3.125 mg PO TUTHSA Atorvastatin [Lipitor] 40 mg PO HS Apixaban [Eliquis] 2.5 mg PO BID Calcium Acetate [PhosLo] 1,334 mg PO AC-TID ALPRAZolam [Xanax] 1 mg PO Q8H PRN PRN Reason: Anxiety Nephro-Ann Tab 1 tab PO TUTHSA Ketoconazole [Nizoral A-D] 1 applic TOPICAL DAILY Methadone HCl [Methadone Intensol] 120 mg PO DAILY Discharge Medication List ALPRAZolam [Xanax] 1 mg PO Q8H PRN 04/18/20 [History] Apixaban [Eliquis] 2.5 mg PO BID 04/18/20 [History] Atorvastatin [Lipitor] 40 mg PO HS 04/18/20 [History] Calcium Acetate [PhosLo] 1,334 mg PO AC-TID 04/18/20 [History] Carvedilol [Coreg] 3.125 mg PO TUTHSA 04/18/20 [History] INSULIN LISPRO (humaLOG) [humaLOG] See Protocol SQ AC-TID PRN MDD OVER 150 04/18/20 [History] Insulin Degludec [Tresiba Flextouch U-100] 10 units SQ DAILY 04/18/20 [History] Ketoconazole [Nizoral A-D] 1 applic TOPICAL DAILY 04/18/20 [History] Levocetirizine Dihydrochloride 5 mg PO DAILY 04/18/20 [History] Levothyroxine Sodium [Synthroid] 150 mcg PO DAILY 04/18/20 [History] Lidocaine 5% Oint [Xylocaine 5% Oint] 1 applic TOPICAL BID PRN 04/18/20 [History] Lidocaine-Prilocaine Cream [Emla Cream 2.5%/2.5%] 1 applic TOPICAL DIRECTED PRN 04/18/20 [History] Linaclotide [Linzess] 290 mcg PO HS 04/18/20 [History] Losartan Potassium 50 mg PO DAILY 04/18/20 [History] Methadone HCl [Methadone Intensol] 120 mg PO DAILY 04/18/20 [History] Nephro-Ann Tab 1 tab PO TUTHSA 04/18/20 [History] Omeprazole 20 mg PO DAILY 04/18/20 [History] carvediloL [Coreg] 6.25 mg PO HS 04/18/20 [History] hydrALAZINE HCL [Apresoline] 50 mg PO Q8H 04/18/20 [History] Acetaminophen Tab [Tylenol] 650 mg PO Q6HR PRN tab 04/20/20 [Rx] Follow up Appointment(s)/Referral(s): Nonstaff,Physician [REFERRING] - 1-2 days Discharge Disposition: HOME SELF-CARE
[2020-04-20 09:49] LABS: Basophils # (A) 0.1 k/uL (0-0.2); Basophils % (A) 1 %; Eosinophils # (A) 0.2 k/uL (0-0.7); Eosinophils % (A) 2 %; HCT 29.7 % (34.0-46.0); Lymphocytes % (A) 19 %; MCH 34.3 pg (25.0-35.0); MCHC 34.9 g/dL (31.0-37.0); MCV 98.2 fL (80.0-100.0); Mean Platelet Volume 10.3; Monocytes # (A) 0.7 k/uL (0-1.0); Monocytes % (A) 7 %; Neutrophils # (A) 7.2 k/uL (1.3-7.7); Neutrophils % (A) 68 %; Platelet Count 138 k/uL (150-450); RBC 3.02 m/uL (3.80-5.40); RDW 14.1 % (11.5-15.5); WBC 10.5 k/uL (3.8-10.6)
[2020-04-20 09:54] LABS: HGB 10.4 gm/dL (11.4-16.0)
[2020-04-20] MEDS: LOSARTAN 50 MG TAB PO SCH (11:34)
--- NOTE | 2020-04-20 11:42 | P.PN ---
Subjective Progress Note Date: 04/20/20 Follow-up for ESRD. Objective - Vital Signs Vital signs: Vital Signs Temp 99.5 F 04/20/20 04:00 Pulse 79 04/20/20 04:00 Resp 16 04/20/20 04:00 BP 94/60 04/20/20 04:00 Pulse Ox 96 04/20/20 04:00 Intake & Output 04/19/20 04/20/20 04/20/20 18:59 06:59 18:59 Intake Total 50 0 Output Total 2070 0 Balance -2019 0 Weight 139.3 kg Intake: IV 50 Oral 0 0 Output: Urine 450 0 Hemodialysis 1070 Estimated Blood Loss 550 Other: # Voids 1 0 # Bowel Movements 0 1 - Exam No acute distress S1-S2 heard Lungs clear Right jugular permacath - Labs CBC & Chem 7: 04/20/20 07:43 04/20/20 07:43 Labs: Abnormal Lab Results - Last 24 Hours (Table) 04/19/20 04/19/20 04/20/20 Range/Units 17:16 20:38 06:13 RBC (3.80-5.40) m/uL Hgb (11.4-16.0) gm/dL Hct (34.0-46.0) % Plt Count (150-450) k/uL Sodium (137-145) mmol/L BUN (7-17) mg/dL Creatinine (0.52-1.04) mg/dL Glucose (74-99) mg/dL POC Glucose (mg/dL) 185 H 195 H 204 H (75-99) mg/dL 04/20/20 04/20/20 Range/Units 07:43 07:43 RBC 3.02 L (3.80-5.40) m/uL Hgb 10.4 L (11.4-16.0) gm/dL Hct 29.7 L (34.0-46.0) % Plt Count 138 L (150-450) k/uL Sodium 136 L (137-145) mmol/L BUN 33 H (7-17) mg/dL Creatinine 4.13 H (0.52-1.04) mg/dL Glucose 152 H (74-99) mg/dL POC Glucose (mg/dL) (75-99) mg/dL Assessment and Plan Assessment: #1 ESRD TTS under the care of Dr. Barrientos #2 clotted graft status post permacath placement #3 anemia with ESRD #4 metabolic bone disease with ESRD #5 hyperkalemia resolved with dialysis Plan: #1 hemodialysis yesterday. Next treatment on Friday #2 stable from nephrology for discharge.
[2020-04-20 15:50] VITALS: BP 80/30; PULSE 66; RESP 18; TEMP 98.8
== END 2020-04-20 12:42 | disposition home or self-care (01) ==
LOC: EC 10:47 → 3SCARD 13:52
PROVIDERS: ADMIT Internal Medicine; ATTEND Internal Medicine
DX: T82.818A Embolism due to vascular prosthetic devices, implants and grafts, initial encounter (principal); T82.868A Thrombosis due to vascular prosthetic devices, implants and grafts, initial encounter; E87.5 Hyperkalemia; Z99.2 Dependence on renal dialysis; I12.0 Hypertensive chronic kidney disease with stage 5 chronic kidney disease or end stage renal disease; N18.6 End stage renal disease; Q61.4 Renal dysplasia; Z89.612 Acquired absence of left leg above knee; H35.30 Unspecified macular degeneration; F17.200 Nicotine dependence, unspecified, uncomplicated; E11.22 Type 2 diabetes mellitus with diabetic chronic kidney disease; E87.1 Hypo-osmolality and hyponatremia; F11.90 Opioid use, unspecified, uncomplicated; Y83.2 Surgical operation with anastomosis, bypass or graft as the cause of abnormal reaction of the patient, or of later complication, without mention of misadventure at the time of the procedure; F41.9 Anxiety disorder, unspecified; D63.1 Anemia in chronic kidney disease; E88.89 Other specified metabolic disorders; Z79.01 Long term (current) use of anticoagulants; Z79.899 Other long term (current) drug therapy; Z79.4 Long term (current) use of insulin; Z79.890 Hormone replacement therapy; Z79.891 Long term (current) use of opiate analgesic; Z88.8 Allergy status to other drugs, medicaments and biological substances; F03.90 Unspecified dementia, unspecified severity, without behavioral disturbance, psychotic disturbance, mood disturbance, and anxiety; Z85.44 Personal history of malignant neoplasm of other female genital organs
CPT/HCPCS: 90970 ×2; 36571; 76937 ×2; 99285; 36415; 93005; 36558; 77001; 36904; 80053; 80048 ×2; 83735 ×3; 84100; 84132; 85025 ×3; 85610; 85730; 71045; G0257 ×3; G0378 ×3; C1894 ×2; C1769 ×4; C1750; C1757; J2250; J1940; J0690; J2001; J3010; S0109; J1170; J1642; J0610; Q9966; 90935

== ENCOUNTER 2020-05-05 09:43 | Day surgery (SDC) | payer MEDICARE, OTHER ==
[~2020-05-05 09:43] MED LIST: HYDROmorphone 0.5 MG/0.5 ML SYRINGE IVP PRN; LACTATED RINGERS 1,000 ML IV SCH; LIDOCAINE 1% (10MG/ML) FOR IV START INTRADERMA PRN; ONDANSETRON 4 MG/2 ML VIAL IVP ONE
[2020-05-05] MEDS ORDERED: ONDANSETRON 4 MG/2 ML VIAL ONE (10:01)
[2020-05-05 10:29] LABS: Glucose,Whole Blood 117 mg/dL (75-99)
[2020-05-05] MEDS ORDERED: SODIUM CHLORIDE 0.9% 1,000 ML IV ONE (10:45)
[2020-05-05 11:05] LABS: Calcium 8.7 mg/dL (8.4-10.2)
[2020-05-05] MEDS ORDERED: MIDAZOLAM 2 MG/2 ML VIAL IV ONE (11:11)
[2020-05-05] MEDS ORDERED: THROMBIN (BOVINE) 5,000 UNIT VIAL TOPICAL ONE (11:44)
[2020-05-05] MEDS ORDERED: ePHEDrine SULFATE/0.9% NACL/PF 50 MG/5 ML SYRINGE IV ONE (11:46)
[2020-05-05] MEDS ORDERED: PHENYLEPHRINE 10 MG/ML VIAL ONE (11:46)
[2020-05-05] MEDS ORDERED: MIDAZOLAM 2 MG/2 ML VIAL ONE (11:46)
[2020-05-05] MEDS ORDERED: ROPIVACAINE 5 MG/ML 30 ML VIAL ONE (11:46)
[2020-05-05] MEDS ORDERED: KETAMINE 10 MG/ML 20 ML VIAL ONE (11:46)
[2020-05-05] MEDS ORDERED: fentaNYL (PF) 50 MCG/ML 2 ML AMP ONE (11:46)
[2020-05-05] MEDS ORDERED: PROPOFOL 10 MG/ML 20 ML VIAL IV ONE (11:46)
[2020-05-05] MEDS ORDERED: GELATIN SPONGE,ABSORB (SMALL) 1 EACH SPONGE TOPICAL ONE (11:49)
[2020-05-05] MEDS ORDERED: ceFAZolin 1,000 MG VIAL IRRIGATION ONE (11:49)
[2020-05-05] MEDS ORDERED: LIDOCAINE 1% INJ 10MG/ML (10 ML MDV) SQ ONE (11:49)
[2020-05-05] MEDS ORDERED: HEPARIN SODIUM,PORCINE 2,000 UNIT in SODIUM CHLORIDE 0.9% 500 ML 500 ML IRRIGATION ONE (12:16)
[2020-05-05 14:04] VITALS: TEMP 97.1
--- NOTE | 2020-05-05 14:26 | P.GSHP ---
History of Present Illness H&P Date: 05/05/20 Chief Complaint: esrd 69 year female with esrd on HD via right camila catheter due to issues with left upper extremity AVG presents today for revision of left upper extremity graft vs. replacement. Patient denies any fevers, chills, nausea, vomiting, chest pain or shortness of breath. Past Medical History Past Medical History: Cancer, Dementia, Hypertension, Renal Disease Additional Past Medical History / Comment(s): Vulva cancer, multicystic kidneys History of Any Multi-Drug Resistant Organisms: None Reported Past Surgical History: Adenoidectomy, Tonsillectomy Additional Past Surgical History / Comment(s): Left arm dialysis graft, left aka, MACULAR DEGENERATION Past Anesthesia/Blood Transfusion Reactions: No Reported Reaction Past Psychological History: No Psychological Hx Reported Smoking Status: Current every day smoker Past Alcohol Use History: None Reported Past Drug Use History: None Reported Medications and Allergies Home Medications Medication Instructions Recorded Confirmed Type ALPRAZolam [Xanax] 1 mg PO Q8H PRN 04/18/20 05/05/20 History Apixaban [Eliquis] 2.5 mg PO BID 04/18/20 05/05/20 History Atorvastatin [Lipitor] 40 mg PO HS 04/18/20 05/05/20 History Calcium Acetate [PhosLo] 1 cap PO AC-TID 04/18/20 05/05/20 History Carvedilol [Coreg] 3.125 mg PO TUTHSA 04/18/20 05/05/20 History INSULIN LISPRO (humaLOG) [humaLOG] See Protocol SQ AC-TID PRN MDD 04/18/20 05/05/20 History OVER 150 Insulin Degludec [Tresiba 10 units SQ DAILY 04/18/20 05/05/20 History Flextouch U-100] Ketoconazole [Nizoral A-D] 1 applic TOPICAL DAILY 04/18/20 05/05/20 History Levocetirizine Dihydrochloride 5 mg PO DAILY 04/18/20 05/05/20 History Levothyroxine Sodium [Synthroid] 150 mcg PO DAILY 04/18/20 05/05/20 History Lidocaine 5% Oint [Xylocaine 5% 1 applic TOPICAL BID PRN 04/18/20 05/05/20 History Oint] Lidocaine-Prilocaine Cream [Emla 1 applic TOPICAL DIRECTED PRN 04/18/20 05/05/20 History Cream 2.5%/2.5%] Linaclotide [Linzess] 290 mcg PO HS 04/18/20 05/05/20 History Losartan Potassium 50 mg PO DAILY 04/18/20 05/05/20 History Methadone HCl [Methadone Intensol] 120 mg PO DAILY 04/18/20 05/05/20 History Nephro-Ann Tab 1 tab PO DAILY 04/18/20 05/05/20 History Omeprazole 20 mg PO DAILY 04/18/20 05/05/20 History carvediloL [Coreg] 6.25 mg PO HS 04/18/20 05/05/20 History hydrALAZINE HCL [Apresoline] 50 mg PO Q8H 04/18/20 05/05/20 History Acetaminophen Tab [Tylenol] 650 mg PO Q6HR PRN tab 04/20/20 05/05/20 Rx Carvedilol [Coreg] 6.25 mg PO DAILY 05/01/20 05/05/20 History amLODIPine [Norvasc] 5 mg PO DAILY PRN 05/01/20 05/05/20 History Allergies Allergy/AdvReac Type Severity Reaction Status Date / Time pentazocine [From Kimmie] AdvReac Unknown Verified 05/05/20 10:15 Surgical - Exam Vital Signs Temp Pulse Resp BP Pulse Ox 98.4 F 73 16 161/70 98 05/05/20 10:16 05/05/20 10:16 05/05/20 10:16 05/05/20 10:16 05/05/20 10:16 - General well developed, no distress - Eyes PERRL - ENT normal pinna, normal nares - Respiratory normal expansion - Cardiovascular Rhythm: regular - Abdomen Abdomen: soft - Psychiatric oriented to time, oriented to person, speech is normal left upper extremity graft without thrill or pulse, occluded. Results - Labs 05/05/20 10:42 Abnormal Lab Results - Last 24 Hours (Table) 05/05/20 05/05/20 Range/Units 10:25 10:42 Sodium 134 L (137-145) mmol/L Chloride 95 L (98-107) mmol/L BUN 27 H (7-17) mg/dL Creatinine 4.14 H (0.52-1.04) mg/dL Glucose 118 H (74-99) mg/dL POC Glucose (mg/dL) 117 H (75-99) mg/dL Diabetes panel 05/05/20 Range/Units 10:42 Sodium 134 L (137-145) mmol/L Potassium 5.0 (3.5-5.1) mmol/L Chloride 95 L (98-107) mmol/L Carbon Dioxide 30 (22-30) mmol/L BUN 27 H (7-17) mg/dL Creatinine 4.14 H (0.52-1.04) mg/dL Glucose 118 H (74-99) mg/dL Calcium 8.7 (8.4-10.2) mg/dL Calcium panel 05/05/20 Range/Units 10:42 Calcium 8.7 (8.4-10.2) mg/dL Pituitary panel 05/05/20 Range/Units 10:42 Sodium 134 L (137-145) mmol/L Potassium 5.0 (3.5-5.1) mmol/L Chloride 95 L (98-107) mmol/L Carbon Dioxide 30 (22-30) mmol/L BUN 27 H (7-17) mg/dL Creatinine 4.14 H (0.52-1.04) mg/dL Glucose 118 H (74-99) mg/dL Calcium 8.7 (8.4-10.2) mg/dL Adrenal panel 05/05/20 Range/Units 10:42 Sodium 134 L (137-145) mmol/L Potassium 5.0 (3.5-5.1) mmol/L Chloride 95 L (98-107) mmol/L Carbon Dioxide 30 (22-30) mmol/L BUN 27 H (7-17) mg/dL Creatinine 4.14 H (0.52-1.04) mg/dL Glucose 118 H (74-99) mg/dL Calcium 8.7 (8.4-10.2) mg/dL Assessment and Plan Assessment: 1. Occluded left upper extremity graft 2. ESRD Plan: To OR for revision vs replacement of graft
[2020-05-05 14:30] LABS: Glucose,Whole Blood 112 mg/dL (75-99)
[2020-05-05 15:59] VITALS: RESP 16
[2020-05-05 16:05] LABS: Glucose,Whole Blood 113 mg/dL (75-99)
--- NOTE | 2020-05-05 16:11 | P.ANPRN ---
Procedure Note - Anesthesia - Nerve Block Performed Left Supraclavicular Time Out Performed: Yes (:11) Date of Procedure: 05/05/20 Procedure Start Time: Procedure Stop Time: Location of Patient: PreOp Indication: Acute Post-Operative Pain, Requested by Surgeon (Dr Rayo) Sedation Type: Sedate with meaningful contact maintained Preparation: Sterile Prep Position: Supine Catheter: None Needle Types: Pajunk (22g) Ultrasound used to visualize needle placement: Yes Ultrasound used to observe medication spread: Yes Injectate: 0.5% Ropivacaine (see comment for volume) (18cc) Blood Aspirated: No Pain Paresthesia on Injection Noted: No Resistance on Injection: Normal Image Stored and Saved: Yes Events: Uneventful and Well Tolerated
--- NOTE | 2020-05-05 16:45 | P.OP ---
Date of Procedure: 05/05/20 Preoperative Diagnosis: Thrombosed left upper extremity AVG End-stage renal disease on hemodialysis Postoperative Diagnosis: Same Procedure(s) Performed: Open thrombectomy of left upper extremity arteriovenous graft Revision of left upper extremity arteriovenous graft with patch angioplasty of the venous anastomosis Anesthesia: regional Surgeon: Ubaldo Rayo Estimated Blood Loss (ml): 100 Pathology: other (Thrombus) Condition: stable Disposition: PACU Indications for Procedure: 69-year-old female who has end-stage renal disease on hemodialysis via a right- sided tunneled Sunday catheter after recent hospitalization due to thrombosed left upper extremity graft. She underwent percutaneous attempt at thrombectomy with improvement of the flow but after procedure was completed and final fistulogram it was noted that the previous vein that the graft was connected to was the basilic vein and was diminutive in size. At that time it was determined that she would need a revision with extension of the existing graft if possible or a new loop axillary to axillary graft. This was discussed with her in full detail prior to surgical intervention which she was in complete agreement. Operative Findings: Diminutive basilic vein at the venous anastomosis with large axillary vein noted approximate 5-10 mm distal to this area. There are multiple branches feeding into the axillary vein under the anastomosis. Thrombus noted throughout the graft. Description of Procedure: After written informed consent was obtained the patient all risks benefits and competitions were described patient is brought to the operative suite and laid in a supine position with the left arm outstretched on an armboard. The area of the arm was then prepped and draped in usual sterile fashion after appropriate anesthetic was performed per the anesthesiologist. A timeout was performed in normal fashion antibiotics were administered prior to incision. A vertical incision was then created just distal to the axilla through the existing scar and dissection was carried down to the existing graft and this was dissected free in a circumferential manner. Proximal and distal control was obtained with vessel loops around the axillary vein, existing graft and brachial vein at the junction. Once controlled an arteriotomy was created with an 11 blade scalpel after patient was administered heparin. A 4 Johnathon balloon was then placed into the graft and thrombectomy was performed removing large amounts of clot. Brisk inflow was noted after thrombectomy was performed with multiple passes. Venous control was released revealing good brisk backbleeding. Due to the proximity of the small basilic vein anastomosis and the axillary vein which was only 5-10 mm distal to this area it was determined to extend the graftotomy through the anastomosis to the vein which was done with Pott Teixeira scissors. There was a valve noted at the distal aspect of the anastomosis which was cut. Utilizing a bovine pericardial patch a patch angioplasty was performed with 6-0 Prolene suture from the vein to the graft. Control was released revealing good backbleeding from all 3 venous outlets. Arterial control was released revealing good pulsatile blood flow and palpable thrill through the graft and into the vein. The graft was flushed with heparin saline and final sutures were secured. Control was then released revealing good pulsatile blood flow within the vein with a good palpable thrill noted. Hemostasis was then assured. Incision was then closed in a multilayer fashion. Skin was cleansed and dressings were placed. The patient tolerated the procedure well and was sent to PACU for recovery.
[2020-05-05 17:04] VITALS: BP 102/63; PULSE 74
== END 2020-05-05 17:29 | disposition home or self-care (01) ==
LOC: OR 09:43
PROVIDERS: ATTEND Surgery
DX: T82.868A Thrombosis due to vascular prosthetic devices, implants and grafts, initial encounter (principal); I12.0 Hypertensive chronic kidney disease with stage 5 chronic kidney disease or end stage renal disease; E11.22 Type 2 diabetes mellitus with diabetic chronic kidney disease; N18.6 End stage renal disease; Q61.4 Renal dysplasia; F17.210 Nicotine dependence, cigarettes, uncomplicated; E07.9 Disorder of thyroid, unspecified; F03.90 Unspecified dementia, unspecified severity, without behavioral disturbance, psychotic disturbance, mood disturbance, and anxiety; K21.9 Gastro-esophageal reflux disease without esophagitis; Z79.02 Long term (current) use of antithrombotics/antiplatelets; Z79.4 Long term (current) use of insulin; Z79.890 Hormone replacement therapy; Z79.899 Other long term (current) drug therapy; Z79.01 Long term (current) use of anticoagulants; Z99.2 Dependence on renal dialysis; Z90.89 Acquired absence of other organs; Z89.612 Acquired absence of left leg above knee; Z85.44 Personal history of malignant neoplasm of other female genital organs; Z88.8 Allergy status to other drugs, medicaments and biological substances
CPT/HCPCS: 36833; 64415; 76942; 80048; C1757; C1781; J2250; J1644; J2370; J0690 ×2; J2405; J3010; J2795; J2001; J2704

== ENCOUNTER 2020-05-20 16:49 | Inpatient (IN) | payer MEDICARE, OTHER ==
[2020-05-20] MEDS ORDERED: LIDOCAINE 1% INJ 10MG/ML (20 ML MDV) SQ STA (17:36)
[2020-05-20] MEDS ORDERED: DIPH,PERTUS(ACELL)TETVAC-LF 0.5 ML VIAL IM ONE (17:42)
[2020-05-20] MEDS ORDERED: ceFAZolin 1,000 MG VIAL (IM USE) IM STA (18:34)
[2020-05-20] MEDS ORDERED: LORazepam 0.5 MG TAB PO STA (18:54)
--- NOTE | 2020-05-20 19:08 | ED ---
General Adult HPI - General Source: patient, EMS, RN notes reviewed, old records reviewed Mode of arrival: EMS Limitations: physical limitation <Elkin Hammonds - Last Filed: 05/20/20 19:07> <Sudheer Foss - Last Filed: 05/20/20 20:16> - General Chief complaint: Extremity Injury, Lower Stated complaint: Leg lac Time Seen by Provider: 05/20/20 17:18 - History of Present Illness Initial comments: 69-year-old female patient with a history of end-stage renal disease on eliquis to the ED for evaluation of fall with a large hematoma to her right lower extremity. This occurred last night. Patient attempted to transfer back to her wheelchair when she fell. Patient is large hematoma on the right lateral aspect of her lower extremity lateral fibula. No trauma to head or the neck. No other complaints. Systemic: Pt denies fatigue, fever/chills, rash. Pt denies weakness, night sweats, weight loss. Neuro: Pt denies headache, visual disturbances, syncope or pre-syncope. HEENT: Pt denies ocular discharge or irritation, otalgia, rhinorrhea, pharyngitis or notable lymphadenopathy. Cardiopulmonary: Pt denies chest pain, SOB, heart palpitations, dyspnea on exertion. Abdominal/GI: Pt denies abdominal pain, n/v/d. : Pt denies dysuria, burning w/ urination, frequency/urgency. Denies new onset urinary or bowel incontinence. MSK: Pt denies myalgia, loss of strength or function in extremities. Neuro: Pt denies new onset weakness, paresthesias. (Elkin Hammonds) - Related Data Home Medications Medication Instructions Recorded Confirmed ALPRAZolam [Xanax] 1 mg PO Q8H PRN 04/18/20 05/05/20 Apixaban [Eliquis] 2.5 mg PO BID 04/18/20 05/05/20 Atorvastatin [Lipitor] 40 mg PO HS 04/18/20 05/05/20 Calcium Acetate [PhosLo] 1 cap PO AC-TID 04/18/20 05/05/20 Carvedilol [Coreg] 3.125 mg PO TUTHSA 04/18/20 05/05/20 INSULIN LISPRO (humaLOG) [humaLOG] See Protocol SQ AC-TID PRN MDD 04/18/20 05/05/20 OVER 150 Insulin Degludec [Tresiba 10 units SQ DAILY 04/18/20 05/05/20 Flextouch U-100] Ketoconazole [Nizoral A-D] 1 applic TOPICAL DAILY 04/18/20 05/05/20 Levocetirizine Dihydrochloride 5 mg PO DAILY 04/18/20 05/05/20 Levothyroxine Sodium [Synthroid] 150 mcg PO DAILY 04/18/20 05/05/20 Lidocaine 5% Oint [Xylocaine 5% 1 applic TOPICAL BID PRN 04/18/20 05/05/20 Oint] Lidocaine-Prilocaine Cream [Emla 1 applic TOPICAL DIRECTED PRN 04/18/20 05/05/20 Cream 2.5%/2.5%] Linaclotide [Linzess] 290 mcg PO HS 04/18/20 05/05/20 Losartan Potassium 50 mg PO DAILY 04/18/20 05/05/20 Methadone HCl [Methadone Intensol] 120 mg PO DAILY 04/18/20 05/05/20 Nephro-Ann Tab 1 tab PO DAILY 04/18/20 05/05/20 Omeprazole 20 mg PO DAILY 04/18/20 05/05/20 carvediloL [Coreg] 6.25 mg PO HS 04/18/20 05/05/20 hydrALAZINE HCL [Apresoline] 50 mg PO Q8H 04/18/20 05/05/20 Carvedilol [Coreg] 6.25 mg PO DAILY 05/01/20 05/05/20 amLODIPine [Norvasc] 5 mg PO DAILY PRN 05/01/20 05/05/20 Previous Rx's Medication Instructions Recorded Acetaminophen Tab [Tylenol] 650 mg PO Q6HR PRN tab 04/20/20 Allergies Allergy/AdvReac Type Severity Reaction Status Date / Time pentazocine [From Kimmie] AdvReac Unknown Verified 05/05/20 10:15 Review of Systems ROS Other: All systems not noted in ROS Statement are negative. <Elkin Hammonds - Last Filed: 05/20/20 19:07> ROS Other: All systems not noted in ROS Statement are negative. <Sudheer Foss - Last Filed: 05/20/20 20:16> ROS Statement: Those systems with pertinent positive or pertinent negative responses have been documented in the HPI. Past Medical History Past Medical History: Atrial Fibrillation, Cancer, Dementia, Diabetes Mellitus, Hypertension, Renal Disease Additional Past Medical History / Comment(s): Vulva cancer, multicystic kidneys, left lower leg amputation History of Any Multi-Drug Resistant Organisms: None Reported Past Surgical History: Adenoidectomy, Tonsillectomy Additional Past Surgical History / Comment(s): Left arm dialysis graft, left aka, MACULAR DEGENERATION Past Anesthesia/Blood Transfusion Reactions: No Reported Reaction Past Psychological History: No Psychological Hx Reported Smoking Status: Current every day smoker Past Alcohol Use History: None Reported Past Drug Use History: None Reported <Elkin Hammonds - Last Filed: 05/20/20 19:07> General Exam Limitations: physical limitation <Elkin Hammonds - Last Filed: 05/20/20 19:07> - General Exam Comments Initial Comments: Constitutional: NAD, AOX3, Pt has pleasant affect. HEENT: NC/AT, trachea midline, neck supple, no lymphadenopathy. External ears appear normal, without discharge. Mucous membranes moist. Eyes PERRLA, EOM intact. There is no scleral icterus. No pallor noted. Cardiopulmonary: RRR, no murmurs, rubs or gallops, no JVD noted. Lungs CTAB in anterior and posterior dodge. No peripheral edema. Abdominal exam: Abdomen soft and non-distended. Abdomen non-tender to palpation in all 4 quadrants. Bowel sounds active in LLQ. No hepatosplenomegaly. No ecchymosis Neuro: CN II-XII grossly intact. No nuchal rigidity. No raccon eyes, no kapadia sign, no hemotympanum. No cervical spinal tenderness. MSK: Large hematoma to the right lateral fibular region. This is approximately one third of the shaft. There is a skin tear which measures approximately 4 inches. Dark venous oozing noted. Distal pulses are intact. (Elkin Hammonds) Course Vital Signs 05/20/20 17:05 Temperature 98.0 F Pulse Rate 96 Respiratory 18 Rate Blood Pressure 109/74 O2 Sat by Pulse 100 Oximetry Medical Decision Making <Elkin Hammonds - Last Filed: 05/20/20 19:07> - Lab Data Result diagrams: 05/20/20 19:08 05/20/20 19:08 <Sudheer Foss - Last Filed: 05/20/20 20:16> - Medical Decision Making 69-year-old female patient to ED for fall with a large hematoma. Vital signs are stable. Patient tetanus updated. Initiated on prophylactic antibiotics. Pressure dressing was applied. Patient will be signed out to Dr. Foss pending laboratory investigations, imaging and final dispostion. (Elkin Hammonds) 69-year-old female is 72 patient presents emergency department for laceration of the leg. She has pretty impressive hematoma and laceration to the right lower extremity. She has history of anticoagulation use for A. fib. Patient is not having active bleeding at bedside. She does have very swollen and ecchymotic leg with a laceration that is filled with blood clot. Case is discussed with Dr. alicia who does not recommend disrupting the blood clot at this time. Does not recommend laceration repair. Rumination was just to wrap the leg and he was evaluated tomorrow. Patient denies having any compartment syndrome type symptoms. Her compartments are soft however, checks are ordered every 4 hours. Orthopedic surgery was contacted to let them know about patient. Metabolic panel shows potassium 6.9. Hemoglobin is depressed. Patient given DDAVP for uremic bleeding. Case is discussed with Dr. Hernandez labor utilization superintendent for nephrology he will arrange for dialysis. Patient in the meantime given insulin, 1 g of calcium and dextrose. Case is discussed with Dr. Corona was went except patient's care. (Sudheer Foss) - Lab Data Lab Results 05/20/20 05/20/20 05/20/20 Range/Units 19:08 19:08 19:08 WBC 13.9 H (3.8-10.6) k/uL RBC 2.30 L (3.80-5.40) m/uL Hgb 7.7 L D (11.4-16.0) gm/dL Hct 24.9 L (34.0-46.0) % MCV 108.3 H D (80.0-100.0) fL MCH 33.6 (25.0-35.0) pg MCHC 31.0 (31.0-37.0) g/dL RDW 15.5 (11.5-15.5) % Plt Count 228 (150-450) k/uL MPV 7.9 Neutrophils % 86 % Lymphocytes % 9 % Monocytes % 2 % Eosinophils % 1 % Basophils % 1 % Neutrophils # 12.0 H (1.3-7.7) k/uL Lymphocytes # 1.2 (1.0-4.8) k/uL Monocytes # 0.3 (0-1.0) k/uL Eosinophils # 0.1 (0-0.7) k/uL Basophils # 0.1 (0-0.2) k/uL Manual Slide Review Performed Polychromasia Present Hypochromasia Marked Macrocytosis Marked A PT 12.3 H (9.0-12.0) sec INR 1.2 H (<1.2) APTT 23.3 (22.0-30.0) sec Sodium 135 L (137-145) mmol/L Potassium 6.9 H* (3.5-5.1) mmol/L Chloride 97 L (98-107) mmol/L Carbon Dioxide 22 (22-30) mmol/L Anion Gap 16 mmol/L BUN 74 H (7-17) mg/dL Creatinine 7.58 H* (0.52-1.04) mg/dL Est GFR (CKD-EPI)AfAm 6 (>60 ml/min/1.73 sqM) Est GFR (CKD-EPI)NonAf 5 (>60 ml/min/1.73 sqM) Glucose 210 H (74-99) mg/dL Calcium 8.3 L (8.4-10.2) mg/dL Total Bilirubin 0.5 (0.2-1.3) mg/dL AST 24 (14-36) U/L ALT 12 (4-34) U/L Alkaline Phosphatase 116 (38-126) U/L Total Protein 6.7 (6.3-8.2) g/dL Albumin 3.5 (3.5-5.0) g/dL Blood Type Blood Type Recheck Bld Type Recheck Status Antibody Screen Spec Expiration Date 05/20/20 Range/Units 19:28 WBC (3.8-10.6) k/uL RBC (3.80-5.40) m/uL Hgb (11.4-16.0) gm/dL Hct (34.0-46.0) % MCV (80.0-100.0) fL MCH (25.0-35.0) pg MCHC (31.0-37.0) g/dL RDW (11.5-15.5) % Plt Count (150-450) k/uL MPV Neutrophils % % Lymphocytes % % Monocytes % % Eosinophils % % Basophils % % Neutrophils # (1.3-7.7) k/uL Lymphocytes # (1.0-4.8) k/uL Monocytes # (0-1.0) k/uL Eosinophils # (0-0.7) k/uL Basophils # (0-0.2) k/uL Manual Slide Review Polychromasia Hypochromasia Macrocytosis PT (9.0-12.0) sec INR (<1.2) APTT (22.0-30.0) sec Sodium (137-145) mmol/L Potassium (3.5-5.1) mmol/L Chloride (98-107) mmol/L Carbon Dioxide (22-30) mmol/L Anion Gap mmol/L BUN (7-17) mg/dL Creatinine (0.52-1.04) mg/dL Est GFR (CKD-EPI)AfAm (>60 ml/min/1.73 sqM) Est GFR (CKD-EPI)NonAf (>60 ml/min/1.73 sqM) Glucose (74-99) mg/dL Calcium (8.4-10.2) mg/dL Total Bilirubin (0.2-1.3) mg/dL AST (14-36) U/L ALT (4-34) U/L Alkaline Phosphatase (38-126) U/L Total Protein (6.3-8.2) g/dL Albumin (3.5-5.0) g/dL Blood Type A Positive Blood Type Recheck No Previous Record Bld Type Recheck Status CABO Indicated Antibody Screen NEGATIVE Spec Expiration Date 05/23/2020 - 2307 Disposition <Elkin Hammonds - Last Filed: 05/20/20 19:07> Decision Time: 20:16 <Sudheer Foss - Last Filed: 05/20/20 20:16> Clinical Impression: Laceration Disposition: ADMITTED IP TO THIS [facility] Condition: Fair Referrals: Nonstaff,Physician [Primary Care Provider] - 1-2 days
--- NOTE | 2020-05-20 19:18 | CT ---
EXAMINATION TYPE: CT lower extremity RT wo con DATE OF EXAM: 05/20/2020 COMPARISON: None HISTORY: Pt diabetic. Hit RT leg on something, resulting in swelling. Pt said later, the leg started to gush blood. Could not confirm how or if she cut it. CT DLP: 158.6 mGycm Automated exposure control for dose reduction was used. Images were obtained from the proximal tibia to the bottom of the calcaneus without contrast. There is 17 x 3.5 x 8 cm high attenuation subcutaneous mass involving the lateral aspect of the right lower leg. This is consistent with large subcutaneous hematoma. The fibula is intact. Tibia is intac t. Muscle bundles are intact. There is small air bubble within the fluid posteriorly. The remainder o f exam is unremarkable. IMPRESSION: Large subcutaneous mass consistent with acute hematoma. Minimal soft tissue air is suggestive of lace ration. No fracture. No evidence of intramuscular hematoma. There is mild subcutaneous edema around the remai nder of the lower leg.
[2020-05-20 19:36] LABS: Basophils # (A) 0.1 k/uL (0-0.2); Basophils % (A) 1 %; Eosinophils # (A) 0.1 k/uL (0-0.7); Eosinophils % (A) 1 %; HCT 24.9 % (34.0-46.0); Hypochromasia Marked; Lymphocytes # (A) 1.2 k/uL (1.0-4.8); Lymphocytes % (A) 9 %; MCH 33.6 pg (25.0-35.0); Macrocytosis Marked; Mean Platelet Volume 7.9; Monocytes # (A) 0.3 k/uL (0-1.0); Monocytes % (A) 2 %; Neutrophils % (A) 86 %; Platelet Count 228 k/uL (150-450); RDW 15.5 % (11.5-15.5); WBC 13.9 k/uL (3.8-10.6)
[2020-05-20 19:37] LABS: HGB 7.7 gm/dL (11.4-16.0); MCV 108.3 fL (80.0-100.0)
[2020-05-20 19:41] LABS: INR 1.2 (<1.2); Partial Thromboplastin Time 23.3 sec (22.0-30.0); Prothrombin Time 12.3 sec (9.0-12.0)
[2020-05-20 19:43] LABS: Albumin 3.5 g/dL (3.5-5.0); Calcium 8.3 mg/dL (8.4-10.2); Total Bilirubin 0.5 mg/dL (0.2-1.3); Total Protein 6.7 g/dL (6.3-8.2)
[2020-05-20 19:53] LABS: Polychromasia Present; Potassium 6.9 mmol/L (3.5-5.1)
[2020-05-20] MEDS ORDERED: NALOXONE 0.4 MG/ML 1 ML VIAL IV PRN (20:08)
[2020-05-20] MEDS ORDERED: INSULIN REGULAR 100 UNIT/ML VIAL IV ONE (20:13)
[2020-05-20] MEDS ORDERED: DEXTROSE 50% SYRINGE 50 ML IVP STA (20:14)
[2020-05-20] MEDS ORDERED: DESMOPRESSIN ACETATE 4 MCG/ML VIAL (MDV) IV SCH (20:15)
[2020-05-20] MEDS ORDERED: CALCIUM GLUCONATE 1 GM in SODIUM CHLORIDE 0.9% 100 ML IVPB ONE (20:30)
[2020-05-20] MEDS ORDERED: DESMOPRESSIN ACETATE 19 MCG in SODIUM CHLORIDE 0.9% 50 ML IVPB ONE (20:45)
[2020-05-20] MEDS: SODIUM CHLORIDE 0.9% 1,000 ML IV SCH (21:34)
[2020-05-20] MEDS: MORPHINE SULFATE 4 MG/ML SYRINGE IV PRN (21:40)
[2020-05-20] MEDS: ONDANSETRON 4 MG/2 ML VIAL IVP PRN (23:34)
[2020-05-20] MEDS ORDERED: hydrALAZINE HCL 50 MG TAB PO SCH (23:45)
--- NOTE | 2020-05-21 00:05 | P.HPIM ---
History of Present Illness H&P Date: 05/20/20 Chief Complaint: right leg injury 69 year old female with ESRD on HD, DM, HTN, Afib on blood thinner patient comes in after sustaining an injury to her right leg early in the morning hours when she bumped her leg while transferring from her toilet seat to wheelchair, no loss of consciousness or head injury. patient went back to bed, and when she woke up , noticed a big hematoma over her right leg , which later burst and resulted in profuse bleeding for which she was brought to the hospital for evaluation . she was found to have acute blood loss anemia from her baseline of 10 down to 7.7, she was also found to have missed HD today. patient was admitted for HD, and evaluation by surgery, serial Hemoglobin , and monitoring her right leg to avoid compartment syndrome she denies otherwise any changes in her baseline health, denies any URI symptoms, GI changes, or fever, chills, chest pain or trouble breathing she recently had a revision of her left arm AV graft, and was started on antibiotics on 05/17 , she currently is getting HD through right perma cath Review of Systems Pertinent positives as noted in HPI. All other systems were reviewed and are negative Past Medical History Past Medical History: Atrial Fibrillation, Cancer, Dementia, Diabetes Mellitus, Hypertension, Renal Disease Additional Past Medical History / Comment(s): Vulva cancer, multicystic kidneys, left lower leg amputation History of Any Multi-Drug Resistant Organisms: None Reported Past Surgical History: Adenoidectomy, Tonsillectomy Additional Past Surgical History / Comment(s): Left arm dialysis graft, left aka, MACULAR DEGENERATION Past Anesthesia/Blood Transfusion Reactions: No Reported Reaction Past Psychological History: No Psychological Hx Reported Smoking Status: Current every day smoker Past Alcohol Use History: None Reported Past Drug Use History: None Reported - Past Family History family Family Medical History: No Reported History Medications and Allergies Home Medications Medication Instructions Recorded Confirmed Type ALPRAZolam [Xanax] 1 mg PO Q8H PRN 04/18/20 05/20/20 History Apixaban [Eliquis] 2.5 mg PO BID 04/18/20 05/20/20 History Atorvastatin [Lipitor] 40 mg PO HS 04/18/20 05/20/20 History Calcium Acetate [PhosLo] 1 cap PO AC-TID 04/18/20 05/20/20 History Carvedilol [Coreg] 3.125 mg PO BID PRN 04/18/20 05/20/20 History Insulin Degludec [Tresiba 10 units SQ DAILY 04/18/20 05/20/20 History Flextouch U-100] Ketoconazole [Nizoral A-D] 1 applic TOPICAL Q72H 04/18/20 05/20/20 History Levocetirizine Dihydrochloride 5 mg PO DAILY PRN 04/18/20 05/20/20 History Levothyroxine Sodium [Synthroid] 150 mcg PO DAILY 04/18/20 05/20/20 History Lidocaine 5% Oint [Xylocaine 5% 1 applic TOPICAL BID PRN 04/18/20 05/20/20 History Oint] Lidocaine-Prilocaine Cream [Emla 1 applic TOPICAL DIRECTED PRN 04/18/20 05/20/20 History Cream 2.5%/2.5%] Linaclotide [Linzess] 290 mcg PO HS 04/18/20 05/20/20 History Losartan Potassium 50 mg PO DAILY 04/18/20 05/20/20 History Methadone HCl [Methadone Intensol] 120 mg PO DAILY 04/18/20 05/20/20 History Nephro-Ann Tab 1 tab PO DAILY 04/18/20 05/20/20 History Omeprazole 20 mg PO DAILY 04/18/20 05/20/20 History hydrALAZINE HCL [Apresoline] 50 mg PO TID 04/18/20 05/20/20 History amLODIPine [Norvasc] 5 mg PO DAILY PRN 05/01/20 05/20/20 History Cefdinir [Omnicef] 300 mg PO BID 05/20/20 05/20/20 History Cholecalciferol [Vitamin D3 (25 2,000 unit PO DAILY 05/20/20 05/20/20 History Mcg = 1000 Iu)] Ferrous Sulfate [Feosol] 325 mg PO DAILY 05/20/20 05/20/20 History Furosemide [Lasix] 20 mg PO DAILY PRN 05/20/20 05/20/20 History Insulin Lispro [humaLOG Kwikpen] See Protocol SQ AC-TID 05/20/20 05/20/20 History Vit C/E/Zn/Coppr/Lutein/Zeaxan 1 cap PO BID 05/20/20 05/20/20 History [Preservision Areds 2 Softgel] Allergies Allergy/AdvReac Type Severity Reaction Status Date / Time pentazocine [From Talwin] AdvReac Unknown Verified 05/20/20 21:05 Physical Exam Vitals: Vital Signs Temp Pulse Resp BP Pulse Ox 05/20/20 17:05 98.0 F 96 18 109/74 100 Intake and Output 05/20/20 05/20/20 05/20/20 06:59 14:59 22:59 Other: Weight 63.503 kg Constitutional: No acute distress, conversant, pleasant Eyes: Anicteric sclerae, moist conjunctiva, Pupils equal round reactive to light ENMT: NC/AT Oropharynx clear, no erythema, or exudates Neck: Supple, FROM, no masses, or JVD No carotid bruits No thyromegaly Lungs: Clear to auscultation Clear to percussion Normal respiratory effort, no accessory muscle use Cardiovascular: Heart regular in rate and rhythm, No murmurs, gallops, or rubs No peripheral edema Abdominal: Soft Nontender, no guarding, rebound or rigidity Abdomen moving with respiration Normoactive bowel sounds No hepatomegaly, No splenomegaly No palpable mass umbilical hernia, soft, non tender Skin: right permacath in place, no surrounding erythema or tenderness, multiple bruising and echymosis over left arm, otherwise, Normal temperature, tone, texture, turgor No induration No subcutaneous nodules Extremities: left BKA, left foot multiple toes amputation with deformity of the left foot. Pedal pulse not palpable , capillary refill is immediate, over right foot, warm to the touch, no cyanosis Radial pulses weak and symmetrical right leg with surgical dressing looks dry intact Psychiatric: Alert and oriented to person, place and time Appropriate affect fair judgement Neuro Muscles Strength 4/5 in bilateral upper extremities, limited testing over right lower extremity due to recent hematoma and surgical dressing Sensation to light touch grossly present throughout Cranial nerves II-XII grossly intact No focal sensory deficits Lymphatics: no palpable cervical or supraclavicular , or inguinal lymph nodes Results CBC & Chem 7: 05/20/20 19:08 05/20/20 19:08 Labs: Abnormal Lab Results - Last 24 Hours (Table) 12/26/20 12/26/20 12/26/20 Range/Units 19:08 19:08 19:08 WBC 13.9 H (3.8-10.6) k/uL RBC 2.30 L (3.80-5.40) m/uL Hgb 7.7 L D (11.4-16.0) gm/dL Hct 24.9 L (34.0-46.0) % MCV 108.3 H D (80.0-100.0) fL Neutrophils # 12.0 H (1.3-7.7) k/uL Macrocytosis Marked A PT 12.3 H (9.0-12.0) sec INR 1.2 H (<1.2) Sodium 135 L (137-145) mmol/L Potassium 6.9 H* (3.5-5.1) mmol/L Chloride 97 L (98-107) mmol/L BUN 74 H (7-17) mg/dL Creatinine 7.58 H* (0.52-1.04) mg/dL Glucose 210 H (74-99) mg/dL Calcium 8.3 L (8.4-10.2) mg/dL Assessment and Plan Assessment: acute blood loss anemia right leg hematoma due to injury plan monitor hemoglobin surgery consult , case discussed with them per ED doc monitor for compartment syndrom , neurovascular check q 2 hours elevation of the right lower extremity hold blood thinner chronic conditions ESRD on HD, missed HD today, arranging for HD electrolyte imbalance secondary to ESRD hypertension , DM , resume home meds Afib , rate controlled, eliquis on hold due to bleeding recent revision of left arm AV graft, resume home antibiotic cefdinir tp continue 7 day course, stop on 05/25 CODE STATUS:full code Discussed with: Patient, ER, RN Anticipated length of stay > than [address]: home preferred per patient A total of 75 minutes was spent on the care of this complex patient more than 50% of the time was spent in counseling and care coordination.
[2020-05-21] MEDS ORDERED: MIDODRINE 5 MG TAB PO ONE ×2 (00:40→11:45)
[2020-05-21 01:20] LABS: Basophils # (A) 0.1 k/uL (0-0.2); Basophils % (A) 0 %; Eosinophils # (A) 0.1 k/uL (0-0.7); Eosinophils % (A) 1 %; Hypochromasia Marked; Lymphocytes # (A) 2.2 k/uL (1.0-4.8); Lymphocytes % (A) 18 %; MCH 32.3 pg (25.0-35.0); MCHC 30.6 g/dL (31.0-37.0); MCV 105.6 fL (80.0-100.0); Macrocytosis Moderate; Mean Platelet Volume 9.2; Monocytes # (A) 0.9 k/uL (0-1.0); Monocytes % (A) 8 %; Neutrophils # (A) 8.9 k/uL (1.3-7.7); Platelet Count 159 k/uL (150-450); RBC 1.87 m/uL (3.80-5.40); RDW 15.9 % (11.5-15.5); WBC 12.4 k/uL (3.8-10.6)
[2020-05-21 01:28] LABS: HCT 19.7 % (34.0-46.0)
[2020-05-21] MEDS: CEFDINIR 300 MG CAP PO SCH ×3 (02:04→22:16)
[2020-05-21] MEDS: CALCIUM ACETATE 667 MG TAB PO SCH ×3 (06:39→17:13)
[2020-05-21] MEDS: INSULIN ASPART (NovoLOG) 100 UNIT/ML VIAL SQ SCH ×4 (06:39→21:47)
[2020-05-21] MEDS: LEVOTHYROXINE 75 MCG TAB PO SCH (06:39)
[2020-05-21 08:53] LABS: African American GFR (CKD) 11 (>60 ml/min/1.73 sqM); Anion Gap 3 mmol/L; Blood Urea Nitrogen 37 mg/dL (7-17); Carbon Dioxide 28 mmol/L (22-30); Chloride 107 mmol/L (98-107); Glucose 118 mg/dL (74-99); Non-African American GFR(CKD) 9 (>60 ml/min/1.73 sqM); Sodium 138 mmol/L (137-145)
[2020-05-21] MEDS ORDERED: LOSARTAN 50 MG TAB PO SCH (09:00)
[2020-05-21 09:03] LABS: Anisocytosis Slight; Basophils # (A) 0.1 k/uL (0-0.2); Basophils % (A) 1 %; Eosinophils # (A) 0.1 k/uL (0-0.7); Eosinophils % (A) 1 %; Hypochromasia Moderate; Lymphocytes # (A) 1.7 k/uL (1.0-4.8); Lymphocytes % (A) 18 %; MCH 33.8 pg (25.0-35.0); MCHC 33.9 g/dL (31.0-37.0); Macrocytosis Slight; Mean Platelet Volume 9.2; Monocytes # (A) 0.6 k/uL (0-1.0); Monocytes % (A) 7 %; Neutrophils # (A) 6.7 k/uL (1.3-7.7); Neutrophils % (A) 72 %; Platelet Count 135 k/uL (150-450); Poikilocytosis Moderate; WBC 9.2 k/uL (3.8-10.6)
[2020-05-21 09:04] LABS: Potassium 6.3 mmol/L (3.5-5.1)
[2020-05-21 09:07] LABS: HGB 6.8 gm/dL (11.4-16.0); MCV 99.7 fL (80.0-100.0)
[2020-05-21] MEDS: PANTOPRAZOLE 40 MG TABLET PO SCH (09:28)
[2020-05-21] MEDS ORDERED: CALCIUM GLUCONATE 1 GM in SODIUM CHLORIDE 0.9% 100 ML IVPB ONE (09:41)
[2020-05-21] MEDS ORDERED: DEXTROSE 50% SYRINGE 50 ML IVP STA (09:41)
[2020-05-21] MEDS ORDERED: INSULIN REGULAR 100 UNIT/ML VIAL IV ONE (09:41)
[2020-05-21] MEDS ORDERED: DARBEPOETIN ALFA 40 MCG/0.4 ML SYRINGE SQ SCH (11:00)
--- NOTE | 2020-05-21 11:00 | P.NPCON ---
History of Present Illness - Reason for Consult end stage renal disease - History of Present Illness Reason for consultation: End-stage renal disease History of present illness: Patient is a 69-year-old female seen in consultation for end-stage renal disease. She is maintained on hemodialysis on Friday schedule. Patient presented to the hospital after she sustained a fall and had bleeding from her right lower extremity. Patient states she was going to the bathroom and bumped into the wall and subsequently fell. She was then brought to the hospital but the ambulance after her daughter noticed the bleeding and called EMS. Hemoglobin was 6 on admission and she received a unit of blood yesterday. It is up to 6.8 this morning and she will receiving another unit today. Potassium was 6.9 and she underwent hemodialysis last night and is scheduled to undergo another treatment today. Potassium this morning is 6.3. She is noted to have a right lower extremity hematoma. No fever or chills. No vomiting or diarrhea. No chest pain or shortness of breath. Denies edema. She does make decent urine. Blood pressure currently stable. It does drop during dialysis and requires Midodrin at times. Vital signs are stable. General: The patient appeared well nourished and normally developed. HEENT: Head exam is unremarkable. Neck is without jugular venous distension. LUNGS: Breath sounds decreased. HEART: Rate and Rhythm are regular. ABDOMEN: Soft, nontender. EXTREMITITES: No edema. Right lower extremity wrapped. Past Medical History Past Medical History: Atrial Fibrillation, Cancer, Dementia, Diabetes Mellitus, Hypertension, Renal Disease Additional Past Medical History / Comment(s): Vulva cancer, multicystic kidneys, left lower leg amputation History of Any Multi-Drug Resistant Organisms: None Reported Past Surgical History: Adenoidectomy, Tonsillectomy Additional Past Surgical History / Comment(s): Left arm dialysis graft, left aka, MACULAR DEGENERATION Past Anesthesia/Blood Transfusion Reactions: No Reported Reaction Past Psychological History: No Psychological Hx Reported Smoking Status: Current every day smoker Past Alcohol Use History: None Reported Past Drug Use History: None Reported - Past Family History family Family Medical History: No Reported History Medications and Allergies Home Medications Medication Instructions Recorded Confirmed Type ALPRAZolam [Xanax] 1 mg PO Q8H PRN 04/18/20 05/20/20 History Apixaban [Eliquis] 2.5 mg PO BID 04/18/20 05/20/20 History Atorvastatin [Lipitor] 40 mg PO HS 04/18/20 05/20/20 History Calcium Acetate [PhosLo] 1 cap PO AC-TID 04/18/20 05/20/20 History Carvedilol [Coreg] 3.125 mg PO BID PRN 04/18/20 05/20/20 History Insulin Degludec [Tresiba 10 units SQ DAILY 04/18/20 05/20/20 History Flextouch U-100] Ketoconazole [Nizoral A-D] 1 applic TOPICAL Q72H 04/18/20 05/20/20 History Levocetirizine Dihydrochloride 5 mg PO DAILY PRN 04/18/20 05/20/20 History Levothyroxine Sodium [Synthroid] 150 mcg PO DAILY 04/18/20 05/20/20 History Lidocaine 5% Oint [Xylocaine 5% 1 applic TOPICAL BID PRN 04/18/20 05/20/20 Hi story Oint] Lidocaine-Prilocaine Cream [Emla 1 applic TOPICAL DIRECTED PRN 04/18/20 05/20/20 History Cream 2.5%/2.5%] Linaclotide [Linzess] 290 mcg PO HS 04/18/20 05/20/20 History Losartan Potassium 50 mg PO DAILY 04/18/20 05/20/20 History Methadone HCl [Methadone Intensol] 120 mg PO DAILY 04/18/20 05/20/20 History Nephro-Ann Tab 1 tab PO DAILY 04/18/20 05/20/20 History Omeprazole 20 mg PO DAILY 04/18/20 05/20/20 History hydrALAZINE HCL [Apresoline] 50 mg PO TID 04/18/20 05/20/20 History amLODIPine [Norvasc] 5 mg PO DAILY PRN 05/01/20 05/20/20 History Cefdinir [Omnicef] 300 mg PO BID 05/20/20 05/20/20 History Cholecalciferol [Vitamin D3 (25 2,000 unit PO DAILY 05/20/20 05/20/20 History Mcg = 1000 Iu)] Ferrous Sulfate [Feosol] 325 mg PO DAILY 05/20/20 05/20/20 History Furosemide [Lasix] 20 mg PO DAILY PRN 05/20/20 05/20/20 History Insulin Lispro [humaLOG Kwikpen] See Protocol SQ AC-TID 05/20/20 05/20/20 History Vit C/E/Zn/Coppr/Lutein/Zeaxan 1 cap PO BID 05/20/20 05/20/20 History [Preservision Areds 2 Softgel] Allergies Allergy/AdvReac Type Severity Reaction Status Date / Time pentazocine [From Kimmie] AdvReac Unknown Verified 05/20/20 21:05 Physical Exam Vitals: Vital Signs Temp Pulse Pulse Resp BP BP Pulse Ox 05/21/20 08:00 98.7 F 86 16 113/56 90 L 05/21/20 05:36 98.7 F 87 18 146/63 93 L 05/21/20 04:00 97.7 F 92 18 106/52 92 L 05/21/20 03:06 97.7 F 92 18 106/52 92 L 05/21/20 02:36 97.5 F L 92 16 113/56 93 L 05/21/20 02:26 97.6 F 94 16 102/51 91 L 05/21/20 02:05 97.5 F L 94 16 93/50 96 05/20/20 23:00 103 H 16 101/68 99 05/20/20 21:45 99 16 110/69 97 05/20/20 17:05 98.0 F 96 18 109/74 100 Intake and Output 05/20/20 05/21/20 05/21/20 22:59 06:59 14:59 Intake Total 550 Output Total 0 Balance 550 Intake: Oral 240 Blood Product 310 Rc Irr As1 Unit 310 [id number] Output: Urine 0 Other: Voiding Method Bedpan Weight 63.503 kg 70 kg Results - Lab Results Most recent lab results Calcium 8.0 mg/dL (8.4-10.2) L 05/21/20 08:15 05/21/20 08:15 05/21/20 08:15 Assessment and Plan Plan: Assessment: 1. End-stage renal disease maintained on hemodialysis on Friday schedule. She did miss one treatment prior to admission. 2. Hyperkalemia secondary to missed hemodialysis treatment and bleeding. She was also on losartan. 3. Right lower extremity hematoma. Status post blood transfusion and IV DDAVP. 4. Diabetes mellitus. 5. Chronic kidney disease mineral bone disease maintained on PhosLo. 6. Hypertension with chronic kidney disease. Blood pressure on the lower side. Plan: Hemodialysis today. Scheduled to receive a unit of blood today. Add Aranesp. 10 units IV insulin with an amp of D50 now. 1 g IV calcium gluconate now. Vascular surgery consulted. Permacath will be discontinued as her left upper extremity AV fistula is working well. Continue to hold losartan. Midodrine 5-10 mg during dialysis if needed for hypotension. Thank you for the consultation. I will continue to follow the patient with you during her hospital stay.
--- NOTE | 2020-05-21 11:26 | P.GSCN ---
History of Present Illness Consult date: 05/21/20 Reason for Consult: Right lower leg hematoma History of present illness: 69 year old female with history of incisional disease on hemodialysis via left upper extremity arteriovenous graft, diabetes, hypertension, A. fib on blood thinners presented to the hospital emergency Department secondary to right lower leg swelling after a fall early in the morning. She states she was transferring from her toilet to her wheelchair and fell and hit her right leg. She states she's called her [facility] and her leg was evaluated at that time and did not show any swelling. She went to bed and noticed in the morning upon awakening that she had a large hematoma which later burst and profuse bleeding occurred at that time which prompted her to go to the hospital. She states her leg has been hurting but was improved once it ruptured. She denies any fevers, chills, chest pain or shortness of breath. She states her left upper extremity dialysis has been going well without any issues but she recently has noticed her left upper extremity is swollen again. Review of Systems All systems: negative (What is mentioned in the HPI or past medical history) Past Medical History Past Medical History: Atrial Fibrillation, Cancer, Dementia, Diabetes Mellitus, Hypertension, Renal Disease Additional Past Medical History / Comment(s): Vulva cancer, multicystic kidneys, left lower leg amputation History of Any Multi-Drug Resistant Organisms: None Reported Past Surgical History: Adenoidectomy, Tonsillectomy Additional Past Surgical History / Comment(s): Left arm dialysis graft, left aka, MACULAR DEGENERATION Past Anesthesia/Blood Transfusion Reactions: No Reported Reaction Past Psychological History: No Psychological Hx Reported Smoking Status: Current every day smoker Past Alcohol Use History: None Reported Past Drug Use History: None Reported - Past Family History family Family Medical History: No Reported History Medications and Allergies Home Medications Medication Instructions Recorded Confirmed Type ALPRAZolam [Xanax] 1 mg PO Q8H PRN 04/18/20 05/20/20 History Apixaban [Eliquis] 2.5 mg PO BID 04/18/20 05/20/20 History Atorvastatin [Lipitor] 40 mg PO HS 04/18/20 05/20/20 History Calcium Acetate [PhosLo] 1 cap PO AC-TID 04/18/20 05/20/20 History Carvedilol [Coreg] 3.125 mg PO BID PRN 04/18/20 05/20/20 History Insulin Degludec [Tresiba 10 units SQ DAILY 04/18/20 05/20/20 History Flextouch U-100] Ketoconazole [Nizoral A-D] 1 applic TOPICAL Q72H 04/18/20 05/20/20 History Levocetirizine Dihydrochloride 5 mg PO DAILY PRN 04/18/20 05/20/20 History Levothyroxine Sodium [Synthroid] 150 mcg PO DAILY 04/18/20 05/20/20 History Lidocaine 5% Oint [Xylocaine 5% 1 applic TOPICAL BID PRN 04/18/20 05/20/20 History Oint] Lidocaine-Prilocaine Cream [Emla 1 applic TOPICAL DIRECTED PRN 04/18/20 05/20/20 History Cream 2.5%/2.5%] Linaclotide [Linzess] 290 mcg PO HS 04/18/20 05/20/20 History Losartan Potassium 50 mg PO DAILY 04/18/20 05/20/20 History Methadone HCl [Methadone Intensol] 120 mg PO DAILY 04/18/20 05/20/20 History Nephro-Ann Tab 1 tab PO DAILY 04/18/20 05/20/20 History Omeprazole 20 mg PO DAILY 04/18/20 05/20/20 History hydrALAZINE HCL [Apresoline] 50 mg PO TID 04/18/20 05/20/20 History amLODIPine [Norvasc] 5 mg PO DAILY PRN 05/01/20 05/20/20 History Cefdinir [Omnicef] 300 mg PO BID 05/20/20 05/20/20 History Cholecalciferol [Vitamin D3 (25 2,000 unit PO DAILY 05/20/20 05/20/20 History Mcg = 1000 Iu)] Ferrous Sulfate [Feosol] 325 mg PO DAILY 05/20/20 05/20/20 History Furosemide [Lasix] 20 mg PO DAILY PRN 05/20/20 05/20/20 History Insulin Lispro [humaLOG Kwikpen] See Protocol SQ AC-TID 05/20/20 05/20/20 History Vit C/E/Zn/Coppr/Lutein/Zeaxan 1 cap PO BID 12/26/20 12/26/20 History [Preservision Areds 2 Softgel] Allergies Allergy/AdvReac Type Severity Reaction Status Date / Time pentazocine [From Talwin] AdvReac Unknown Verified 05/20/20 21:05 Surgical - Exam Vital Signs Temp Pulse Resp BP Pulse Ox 98.0 F 96 18 109/74 100 05/20/20 17:05 05/20/20 17:05 05/20/20 17:05 05/20/20 17:05 05/20/20 17:05 - General well developed, well nourished, no distress - Eyes PERRL, normal ocular movement - ENT normal pinna, normal nares - Neck no masses - Respiratory normal expansion, normal respiratory effort - Cardiovascular Rhythm: regularly irregular - Abdomen Abdomen: soft, non tender - Integumentary other - Neurologic normal sensation - Musculoskeletal other Right lower extremity with large hematoma extending from just distal to the knee extending to the lateral aspect of the ankle involving the superior aspect of the anterior compartment. There is ecchymosis and some dried hematoma on the posterior aspect of the hematoma. Positive tenderness to palpation. Patient is able to move her foot with some discomfort. Skin is torn and appears to be ischemic due to swelling and underlying hematoma. Results - Labs 05/21/20 08:15 05/21/20 08:15 Abnormal Lab Results - Last 24 Hours (Table) 05/20/20 05/20/20 05/20/20 Range/Units 19:08 19:08 19:08 WBC 13.9 H (3.8-10.6) k/uL RBC 2.30 L (3.80-5.40) m/uL Hgb 7.7 L D (11.4-16.0) gm/dL Hct 24.9 L (34.0-46.0) % MCV 108.3 H D (80.0-100.0) fL MCHC (31.0-37.0) g/dL RDW (11.5-15.5) % Plt Count (150-450) k/uL Neutrophils # 12.0 H (1.3-7.7) k/uL Macrocytosis Marked A PT 12.3 H (9.0-12.0) sec INR 1.2 H (<1.2) Sodium 135 L (137-145) mmol/L Potassium 6.9 H* (3.5-5.1) mmol/L Chloride 97 L (98-107) mmol/L BUN 74 H (7-17) mg/dL Creatinine 7.58 H* (0.52-1.04) mg/dL Glucose 210 H (74-99) mg/dL Calcium 8.3 L (8.4-10.2) mg/dL Crossmatch 05/20/20 05/21/20 05/21/20 Range/Units 19:28 00:20 08:15 WBC 12.4 H (3.8-10.6) k/uL RBC 1.87 L (3.80-5.40) m/uL Hgb 6.0 L* D (11.4-16.0) gm/dL Hct 19.7 L* (34.0-46.0) % MCV 105.6 H (80.0-100.0) fL MCHC 30.6 L (31.0-37.0) g/dL RDW 15.9 H (11.5-15.5) % Plt Count (150-450) k/uL Neutrophils # 8.9 H (1.3-7.7) k/uL Macrocytosis PT (9.0-12.0) sec INR (<1.2) Sodium (137-145) mmol/L Potassium 6.3 H* (3.5-5.1) mmol/L Chloride (98-107) mmol/L BUN 37 H (7-17) mg/dL Creatinine 4.54 H (0.52-1.04) mg/dL Glucose 118 H (74-99) mg/dL Calcium 8.0 L (8.4-10.2) mg/dL Crossmatch See Detail 05/21/20 Range/Units 08:15 WBC (3.8-10.6) k/uL RBC 2.00 L (3.80-5.40) m/uL Hgb 6.8 L* (11.4-16.0) gm/dL Hct 20.0 L (34.0-46.0) % MCV (80.0-100.0) fL MCHC (31.0-37.0) g/dL RDW 16.0 H (11.5-15.5) % Plt Count 135 L (150-450) k/uL Neutrophils # (1.3-7.7) k/uL Macrocytosis PT (9.0-12.0) sec INR (<1.2) Sodium (137-145) mmol/L Potassium (3.5-5.1) mmol/L Chloride (98-107) mmol/L BUN (7-17) mg/dL Creatinine (0.52-1.04) mg/dL Glucose (74-99) mg/dL Calcium (8.4-10.2) mg/dL Crossmatch Diabetes panel 05/20/20 05/21/20 Range/Units 19:08 08:15 Sodium 135 L 138 (137-145) mmol/L Potassium 6.9 H* 6.3 H* (3.5-5.1) mmol/L Chloride 97 L 107 (98-107) mmol/L Carbon Dioxide 22 28 (22-30) mmol/L BUN 74 H 37 H (7-17) mg/dL Creatinine 7.58 H* 4.54 H (0.52-1.04) mg/dL Glucose 210 H 118 H (74-99) mg/dL Calcium 8.3 L 8.0 L (8.4-10.2) mg/dL AST 24 (14-36) U/L ALT 12 (4-34) U/L Alkaline Phosphatase 116 (38-126) U/L Total Protein 6.7 (6.3-8.2) g/dL Albumin 3.5 (3.5-5.0) g/dL Calcium panel 05/20/20 05/21/20 Range/Units 19:08 08:15 Calcium 8.3 L 8.0 L (8.4-10.2) mg/dL Albumin 3.5 (3.5-5.0) g/dL Pituitary panel 05/20/20 05/21/20 Range/Units 19:08 08:15 Sodium 135 L 138 (137-145) mmol/L Potassium 6.9 H* 6.3 H* (3.5-5.1) mmol/L Chloride 97 L 107 (98-107) mmol/L Carbon Dioxide 22 28 (22-30) mmol/L BUN 74 H 37 H (7-17) mg/dL Creatinine 7.58 H* 4.54 H (0.52-1.04) mg/dL Glucose 210 H 118 H (74-99) mg/dL Calcium 8.3 L 8.0 L (8.4-10.2) mg/dL Adrenal panel 05/20/20 05/21/20 Range/Units 19:08 08:15 Sodium 135 L 138 (137-145) mmol/L Potassium 6.9 H* 6.3 H* (3.5-5.1) mmol/L Chloride 97 L 107 (98-107) mmol/L Carbon Dioxide 22 28 (22-30) mmol/L BUN 74 H 37 H (7-17) mg/dL Creatinine 7.58 H* 4.54 H (0.52-1.04) mg/dL Glucose 210 H 118 H (74-99) mg/dL Calcium 8.3 L 8.0 L (8.4-10.2) mg/dL Total Bilirubin 0.5 (0.2-1.3) mg/dL AST 24 (14-36) U/L ALT 12 (4-34) U/L Alkaline Phosphatase 116 (38-126) U/L Total Protein 6.7 (6.3-8.2) g/dL Albumin 3.5 (3.5-5.0) g/dL Assessment and Plan Assessment: #1 right lower leg hematoma secondary to fall and trauma #2 acute blood loss anemia secondary to #1 #3 end-stage renal disease on hemodialysis via left upper extremity arteriovenous graft #4 atrial fibrillation on blood thinners #5 hypertension, diabetes #6 chronic methadone use Plan: Discussion was had with the patient about intervention to remove the hematoma hopefully to prevent further wound ischemic areas of the skin. We discussed doing this at bedside versus in the operating room and patient would rather have the procedure done at bedside which we will attempt to do today. It will need packing as well as pressure to the wound bed. Likely her skin will necrosis and leave a larger superficial wound which will need chronic wound care. Thank you for allowing me to participate in your patient's care.
[2020-05-21] MEDS: METHADONE 10 MG TAB PO SCH (11:35)
[2020-05-21] MEDS: INSULIN DETEMIR (LEVEMIR) 100 UNIT/ML SYR SQ SCH (11:42)
[2020-05-21] MEDS: FOLIC ACID-VIT B COMPLEX-VIT C 1 CAP PO SCH (11:42)
[2020-05-21 11:45] LABS: Glucose,Whole Blood 111 mg/dL (75-99)
[2020-05-21] MEDS ORDERED: HYDROmorphone 0.5 MG/0.5 ML SYRINGE IVP STA (12:08)
[2020-05-21] MEDS ORDERED: LIDOCAINE 1% INJ 10MG/ML (20 ML MDV) ONE (12:12)
--- NOTE | 2020-05-21 12:19 | P.PN ---
Subjective Progress Note Date: 05/21/20 Principal diagnosis: CC right lower extremity hematoma Patient says that the pain in the right lower extremity is better after the hematoma ruptured. Objective - Vital Signs Vital signs: Vital Signs Temp 98.9 F 05/21/20 11:51 Pulse 88 05/21/20 11:51 Resp 24 05/21/20 11:51 BP 123/57 05/21/20 11:51 Pulse Ox 93 L 05/21/20 11:51 Intake & Output 05/20/20 05/21/20 05/21/20 18:59 06:59 18:59 Intake Total 550 Output Total 0 Balance 550 Weight 63.503 kg 70 kg Intake: Oral 240 Blood Product 310 Rc Irr As1 Unit 310 [id number] Output: Urine 0 Other: Voiding Method Bedpan - Exam General examination - Alert and Oriented 3 in NAD Heart - + S1S2 no murmurs Lungs - Clear to auscultation Abdomen soft NT ND +ve BS Extremities -right lower extremity bandages intact and dry, AV fistula in left upper extremity KAIAKO KURA TUARUA - Moving all 4 extremities spontaneously Psych - Calm and cooperative - Labs CBC & Chem 7: 05/21/20 08:15 05/21/20 08:15 Labs: Abnormal Lab Results - Last 24 Hours (Table) 05/20/20 05/20/20 05/20/20 Range/Units 19:08 19:08 19:08 WBC 13.9 H (3.8-10.6) k/uL RBC 2.30 L (3.80-5.40) m/uL Hgb 7.7 L D (11.4-16.0) gm/dL Hct 24.9 L (34.0-46.0) % MCV 108.3 H D (80.0-100.0) fL MCHC (31.0-37.0) g/dL RDW (11.5-15.5) % Plt Count (150-450) k/uL Neutrophils # 12.0 H (1.3-7.7) k/uL Macrocytosis Marked A PT 12.3 H (9.0-12.0) sec INR 1.2 H (<1.2) Sodium 135 L (137-145) mmol/L Potassium 6.9 H* (3.5-5.1) mmol/L Chloride 97 L (98-107) mmol/L BUN 74 H (7-17) mg/dL Creatinine 7.58 H* (0.52-1.04) mg/dL Glucose 210 H (74-99) mg/dL POC Glucose (mg/dL) (75-99) mg/dL Calcium 8.3 L (8.4-10.2) mg/dL Crossmatch 05/20/20 05/21/20 05/21/20 Range/Units 19:28 00:20 08:15 WBC 12.4 H (3.8-10.6) k/uL RBC 1.87 L (3.80-5.40) m/uL Hgb 6.0 L* D (11.4-16.0) gm/dL Hct 19.7 L* (34.0-46.0) % MCV 105.6 H (80.0-100.0) fL MCHC 30.6 L (31.0-37.0) g/dL RDW 15.9 H (11.5-15.5) % Plt Count (150-450) k/uL Neutrophils # 8.9 H (1.3-7.7) k/uL Macrocytosis PT (9.0-12.0) sec INR (<1.2) Sodium (137-145) mmol/L Potassium 6.3 H* (3.5-5.1) mmol/L Chloride (98-107) mmol/L BUN 37 H (7-17) mg/dL Creatinine 4.54 H (0.52-1.04) mg/dL Glucose 118 H (74-99) mg/dL POC Glucose (mg/dL) (75-99) mg/dL Calcium 8.0 L (8.4-10.2) mg/dL Crossmatch See Detail 05/21/20 05/21/20 Range/Units 08:15 11:41 WBC (3.8-10.6) k/uL RBC 2.00 L (3.80-5.40) m/uL Hgb 6.8 L* (11.4-16.0) gm/dL Hct 20.0 L (34.0-46.0) % MCV (80.0-100.0) fL MCHC (31.0-37.0) g/dL RDW 16.0 H (11.5-15.5) % Plt Count 135 L (150-450) k/uL Neutrophils # (1.3-7.7) k/uL Macrocytosis PT (9.0-12.0) sec INR (<1.2) Sodium (137-145) mmol/L Potassium (3.5-5.1) mmol/L Chloride (98-107) mmol/L BUN (7-17) mg/dL Creatinine (0.52-1.04) mg/dL Glucose (74-99) mg/dL POC Glucose (mg/dL) 111 H (75-99) mg/dL Calcium (8.4-10.2) mg/dL Crossmatch Assessment and Plan Assessment: Patient is a 69 year old female with ESRD on HD, DM, HTN, Afib on blood thinner prompt her leg while transferring from toilet to wheelchair. She then noticed a big hematoma over her right leg. #right leg hematoma due to injury -Hematoma appears to have ruptured. -Vascular surgery plans on removing the hematoma -Hold Eliquis due to bleeding #acute blood loss anemia -Status post 2 units of PRBC -Trend H&H and transfuse for hemoglobin less than 7 chronic conditions #ESRD -> electrolyte imbalance will be corrected with dialysis. Nephrology on board #hypertension , DM , resume home meds #Afib , rate controlled, eliquis on hold due to bleeding #recent revision of left arm AV graft, resume home antibiotic cefdinir tp continue 7 day course, stop on 05/25 #Chronic pain: resume methadone Full Code
--- NOTE | 2020-05-21 13:01 | P.PCN ---
Date of Procedure: 05/21/20 Preoperative Diagnosis: 1. right lower leg large hematoma (17x3.5x8cm) with skin necrosis 2. ESRD on HD Postoperative Diagnosis: Same Procedure(s) Performed: 1. incision and drainage of right lower leg hematoma 2. Right tunneled hemodialysis catheter removal Anesthesia: local Surgeon: Ubaldo Rayo Estimated Blood Loss (ml): 50 Pathology: none sent Condition: stable Disposition: floor Indications for Procedure: 69-year-old female who is currently being treated at the hospital after a fall from standing and for right lower extremity hematoma seen on computed tomography scan measuring 17 x 3.5 x 8 cm. Upon evaluation the skin was necrotic and hematoma was bulging and therefore discussion was had of incision and drainage of the area. She also is end-stage renal disease on hemodialysis and is utilizing her left upper extremity arteriovenous graft and has no more need for the right chest catheter therefore we will remove that as well. Description of Procedure: After written and informed consent was obtained the patient all risks benefits competitions were described the procedure was performed at bedside. The area of the right neck was prepped and draped in usual sterile fashion. The sutures were removed and local anesthetic was infused through the tunnel to the cough. The cuff was then dissected free through the existing tunnel and catheter was removed without issue. Pressure was then held for hemostasis. Attention was th en placed to the right lower leg which was prepped and draped in usual sterile fashion. Small incision near the previous skin tear was performed and utilizing a stat the hematoma was fractured and expressed through the skin tear site. The tear itself measured approximately 10-15 cm in length and the cavity was approximately 8 cm in width with 3-1/2 cm in depth. The hematoma was completely expressed and the overlying ischemic skin was resected. The area was then irrigated and no active bleeding was noted. The wound was then dressed with ABDs Kerlix and an Elmer wrap. Patient tolerated the procedure well and we will continue wet-to-dry dressing changes.
[2020-05-21] MEDS: MORPHINE SULFATE 4 MG/ML SYRINGE IV PRN ×2 (13:49→21:46)
[2020-05-21 15:06] LABS: Glucose,Whole Blood 95 mg/dL (75-99)
[2020-05-21 15:30] LABS: Glucose,Whole Blood 144 mg/dL (75-99)
--- NOTE | 2020-05-21 15:56 | P.GSCN ---
History of Present Illness Consult date: 05/21/20 History of present illness: 69 year old female on eliquis for afib and HD for ESRD presented to ER after hitting her leg with hematoma and bleeding. Patient was seen by her vascular surgeon today who performed evacuation of clot at bedside. She is resting comfortably in bed getting HD with no complaints. leg is wrapped after bedside procedure Past Medical History Past Medical History: Atrial Fibrillation, Cancer, Dementia, Diabetes Mellitus, Hypertension, Renal Disease Additional Past Medical History / Comment(s): Vulva cancer, multicystic kidneys, left lower leg amputation History of Any Multi-Drug Resistant Organisms: None Reported Past Surgical History: Adenoidectomy, Tonsillectomy Additional Past Surgical History / Comment(s): Left arm dialysis graft, left aka, MACULAR DEGENERATION Past Anesthesia/Blood Transfusion Reactions: No Reported Reaction Past Psychological History: No Psychological Hx Reported Smoking Status: Current every day smoker Past Alcohol Use History: None Reported Past Drug Use History: None Reported - Past Family History family Family Medical History: No Reported History Medications and Allergies Home Medications Medication Instructions Recorded Confirmed Type ALPRAZolam [Xanax] 1 mg PO Q8H PRN 04/18/20 05/20/20 History Apixaban [Eliquis] 2.5 mg PO BID 04/18/20 05/20/20 History Atorvastatin [Lipitor] 40 mg PO HS 04/18/20 05/20/20 History Calcium Acetate [PhosLo] 1 cap PO AC-TID 04/18/20 05/20/20 History Carvedilol [Coreg] 3.125 mg PO BID PRN 04/18/20 05/20/20 History Insulin Degludec [Tresiba 10 units SQ DAILY 04/18/20 05/20/20 History Flextouch U-100] Ketoconazole [Nizoral A-D] 1 applic TOPICAL Q72H 04/18/20 05/20/20 History Levocetirizine Dihydrochloride 5 mg PO DAILY PRN 04/18/20 05/20/20 History Levothyroxine Sodium [Synthroid] 150 mcg PO DAILY 04/18/20 05/20/20 History Lidocaine 5% Oint [Xylocaine 5% 1 applic TOPICAL BID PRN 04/18/20 05/20/20 History Oint] Lidocaine-Prilocaine Cream [Emla 1 applic TOPICAL DIRECTED PRN 04/18/20 05/20/20 History Cream 2.5%/2.5%] Linaclotide [Linzess] 290 mcg PO HS 04/18/20 05/20/20 History Losartan Potassium 50 mg PO DAILY 04/18/20 05/20/20 History Methadone HCl [Methadone Intensol] 120 mg PO DAILY 04/18/20 05/20/20 History Nephro-Ann Tab 1 tab PO DAILY 04/18/20 05/20/20 History Omeprazole 20 mg PO DAILY 04/18/20 05/20/20 History hydrALAZINE HCL [Apresoline] 50 mg PO TID 04/18/20 05/20/20 History amLODIPine [Norvasc] 5 mg PO DAILY PRN 05/01/20 05/20/20 History Cefdinir [Omnicef] 300 mg PO BID 05/20/20 05/20/20 History Cholecalciferol [Vitamin D3 (25 2,000 unit PO DAILY 05/20/20 05/20/20 History Mcg = 1000 Iu)] Ferrous Sulfate [Feosol] 325 mg PO DAILY 05/20/20 05/20/20 History Furosemide [Lasix] 20 mg PO DAILY PRN 05/20/20 05/20/20 History Insulin Lispro [humaLOG Kwikpen] See Protocol SQ AC-TID 05/20/20 05/20/20 History Vit C/E/Zn/Coppr/Lutein/Zeaxan 1 cap PO BID 05/20/20 05/20/20 History [Preservision Areds 2 Softgel] Allergies Allergy/AdvReac Type Severity Reaction Status Date / Time pentazocine [From Kimmie] AdvReac Unknown Verified 05/20/20 21:05 Surgical - Exam Osteopathic Statement: *. No significant issues noted on an osteopathic structural exam other than those noted in the History and Physical/Consult. Vital Signs Temp Pulse Resp BP Pulse Ox 98.0 F 96 18 109/74 100 05/20/20 17:05 05/20/20 17:05 05/20/20 17:05 05/20/20 17:05 05/20/20 17:05 - General well developed, well nourished, no distress - Respiratory normal expansion, normal respiratory effort - Musculoskeletal RLE with dressing in place. dressing CDI - Psychiatric oriented to time, oriented to person, oriented to place Results - Labs 05/21/20 08:15 05/21/20 08:15 Abnormal Lab Results - Last 24 Hours (Table) 05/20/20 05/20/20 05/20/20 Range/Units 19:08 19:08 19:08 WBC 13.9 H (3.8-10.6) k/uL RBC 2.30 L (3.80-5.40) m/uL Hgb 7.7 L D (11.4-16.0) gm/dL Hct 24.9 L (34.0-46.0) % MCV 108.3 H D (80.0-100.0) fL MCHC (31.0-37.0) g/dL RDW (11.5-15.5) % Plt Count (150-450) k/uL Neutrophils # 12.0 H (1.3-7.7) k/uL Macrocytosis Marked A PT 12.3 H (9.0-12.0) sec INR 1.2 H (<1.2) Sodium 135 L (137-145) mmol/L Potassium 6.9 H* (3.5-5.1) mmol/L Chloride 97 L (98-107) mmol/L BUN 74 H (7-17) mg/dL Creatinine 7.58 H* (0.52-1.04) mg/dL Glucose 210 H (74-99) mg/dL POC Glucose (mg/dL) (75-99) mg/dL Calcium 8.3 L (8.4-10.2) mg/dL Crossmatch 05/20/20 05/21/20 05/21/20 Range/Units 19:28 00:20 06:19 WBC 12.4 H (3.8-10.6) k/uL RBC 1.87 L (3.80-5.40) m/uL Hgb 6.0 L* D (11.4-16.0) gm/dL Hct 19.7 L* (34.0-46.0) % MCV 105.6 H (80.0-100.0) fL MCHC 30.6 L (31.0-37.0) g/dL RDW 15.9 H (11.5-15.5) % Plt Count (150-450) k/uL Neutrophils # 8.9 H (1.3-7.7) k/uL Macrocytosis PT (9.0-12.0) sec INR (<1.2) Sodium (137-145) mmol/L Potassium (3.5-5.1) mmol/L Chloride (98-107) mmol/L BUN (7-17) mg/dL Creatinine (0.52-1.04) mg/dL Glucose (74-99) mg/dL POC Glucose (mg/dL) 144 H (75-99) mg/dL Calcium (8.4-10.2) mg/dL Crossmatch See Detail 05/21/20 05/21/20 05/21/20 Range/Units 08:15 08:15 11:41 WBC (3.8-10.6) k/uL RBC 2.00 L (3.80-5.40) m/uL Hgb 6.8 L* (11.4-16.0) gm/dL Hct 20.0 L (34.0-46.0) % MCV (80.0-100.0) fL MCHC (31.0-37.0) g/dL RDW 16.0 H (11.5-15.5) % Plt Count 135 L (150-450) k/uL Neutrophils # (1.3-7.7) k/uL Macrocytosis PT (9.0-12.0) sec INR (<1.2) Sodium (137-145) mmol/L Potassium 6.3 H* (3.5-5.1) mmol/L Chloride (98-107) mmol/L BUN 37 H (7-17) mg/dL Creatinine 4.54 H (0.52-1.04) mg/dL Glucose 118 H (74-99) mg/dL POC Glucose (mg/dL) 111 H (75-99) mg/dL Calcium 8.0 L (8.4-10.2) mg/dL Crossmatch Diabetes panel 05/20/20 05/21/20 Range/Units 19:08 08:15 Sodium 135 L 138 (137-145) mmol/L Potassium 6.9 H* 6.3 H* (3.5-5.1) mmol/L Chloride 97 L 107 (98-107) mmol/L Carbon Dioxide 22 28 (22-30) mmol/L BUN 74 H 37 H (7-17) mg/dL Creatinine 7.58 H* 4.54 H (0.52-1.04) mg/dL Glucose 210 H 118 H (74-99) mg/dL Calcium 8.3 L 8.0 L (8.4-10.2) mg/dL AST 24 (14-36) U/L ALT 12 (4-34) U/L Alkaline Phosphatase 116 (38-126) U/L Total Protein 6.7 (6.3-8.2) g/dL Albumin 3.5 (3.5-5.0) g/dL Calcium panel 05/20/20 05/21/20 Range/Units 19:08 08:15 Calcium 8.3 L 8.0 L (8.4-10.2) mg/dL Albumin 3.5 (3.5-5.0) g/dL Pituitary panel 05/20/20 05/21/20 Range/Units 19:08 08:15 Sodium 135 L 138 (137-145) mmol/L Potassium 6.9 H* 6.3 H* (3.5-5.1) mmol/L Chloride 97 L 107 (98-107) mmol/L Carbon Dioxide 22 28 (22-30) mmol/L BUN 74 H 37 H (7-17) mg/dL Creatinine 7.58 H* 4.54 H (0.52-1.04) mg/dL Glucose 210 H 118 H (74-99) mg/dL Calcium 8.3 L 8.0 L (8.4-10.2) mg/dL Adrenal panel 05/20/20 05/21/20 Range/Units 19:08 08:15 Sodium 135 L 138 (137-145) mmol/L Potassium 6.9 H* 6.3 H* (3.5-5.1) mmol/L Chloride 97 L 107 (98-107) mmol/L Carbon Dioxide 22 28 (22-30) mmol/L BUN 74 H 37 H (7-17) mg/dL Creatinine 7.58 H* 4.54 H (0.52-1.04) mg/dL Glucose 210 H 118 H (74-99) mg/dL Calcium 8.3 L 8.0 L (8.4-10.2) mg/dL Total Bilirubin 0.5 (0.2-1.3) mg/dL AST 24 (14-36) U/L ALT 12 (4-34) U/L Alkaline Phosphatase 116 (38-126) U/L Total Protein 6.7 (6.3-8.2) g/dL Albumin 3.5 (3.5-5.0) g/dL Assessment and Plan Assessment: laceration and hematoma of RLE Plan: Patient had bedside procedure by vascular surgery. I did not remove the fresh dressing. Cont. management per vascular surgery, no further general surgery recs.
[2020-05-21 16:52] LABS: Glucose,Whole Blood 84 mg/dL (75-99)
[2020-05-21] MEDS: ACETAMINOPHEN TAB 325 MG TAB PO PRN (17:15)
[2020-05-21 18:38] LABS: Anisocytosis Slight; Basophils # (A) 0.1 k/uL (0-0.2); Basophils % (A) 1 %; Eosinophils # (A) 0.1 k/uL (0-0.7); Eosinophils % (A) 0 %; HCT 26.6 % (34.0-46.0); Hypochromasia Marked; Lymphocytes # (A) 2.4 k/uL (1.0-4.8); Lymphocytes % (A) 21 %; MCH 32.8 pg (25.0-35.0); MCHC 32.2 g/dL (31.0-37.0); MCV 101.8 fL (80.0-100.0); Macrocytosis Moderate; Mean Platelet Volume 7.9; Monocytes # (A) 0.9 k/uL (0-1.0); Monocytes % (A) 7 %; Neutrophils # (A) 8.1 k/uL (1.3-7.7); Neutrophils % (A) 69 %; Platelet Count 144 k/uL (150-450); Poikilocytosis Moderate; RBC 2.61 m/uL (3.80-5.40); RDW 16.5 % (11.5-15.5); WBC 11.8 k/uL (3.8-10.6)
[2020-05-21 18:41] LABS: HGB 8.6 gm/dL (11.4-16.0)
--- NOTE | 2020-05-21 20:07 | CONS ---
CONSULTATION DATE OF SERVICE: 05/21/2020 CHIEF COMPLAINT: This 69-year-old woman inadvertently struck her right calf on an object going to the bathroom a day or 2 ago. Initially, she thought it was a bruise, but it subsequently developed into a lot of swelling. The skin then began to open and bleed and she presented to the emergency room for further evaluation. Historically, she is a diabetic and has lost her left leg with a mid thigh amputation. Her right leg has already had her great toe and 2nd toe amputated for vascular reasons. She is insulin dependent at this time and also has a long-standing narcotic problem. EXAM: She is alert, oriented, in no acute distress. Her right calf is heavily bandaged and there is no blood seeping through at this time. With the help of her nurse, her leg is further elevated. The dressings were removed and her leg is examined. There is a moderate amount of swelling in the thigh with hematoma formation in the anterior and lateral aspect. In the posterior aspect, the skin is split open for a length of 6-8 inches with healthy muscle insight. There is no active bleeding at this time. There is no signs of infection or surrounding redness. Fortunately, the split in the skin has likely prevented her from a compartment syndrome as she has no compartment pain nor any . She is easily able to plantar and dorsiflex her foot and toes. The circulation to her foot is intact. She has some decreased sensation, which is normal from her diabetic neuropathy. LAB VALUES: No lab value are reviewed at this time. IMPRESSION: Contusion, right calf with large hematoma formation. Her issue is the chronic use of blood thinners resulting in compartmental bleeding in her right leg. As stated above, the split in skin was likely therapeutic and prevented compartment syndrome. I have explained to her that this was beneficial and needs to be left open for swelling purposes. It will heal in by secondary intention. In the meantime, she needs to be seen in consultation by the vascular service. This is at risk for circulation deficiency and potential loss of her leg. Her blood volume parameters and protection against infection are also necessary. As such, she remains under the care of the Medical Hospitalist in that regard. This is more of a vascular issue than orthopedic and we shall await vascular consultation. At this time, I do not feel there is a need for further compartment decompression nor hematoma evacuation. Her coagulation parameters need to stabilize prior to consideration of any procedure. MMODL / IJN: [id number] /
[2020-05-21 21:05] LABS: Glucose,Whole Blood 95 mg/dL (75-99)
[2020-05-21] MEDS: ATORVASTATIN 40 MG TAB PO SCH (21:46)
[2020-05-21] MEDS: SODIUM CHLORIDE 0.9% 1,000 ML IV SCH (21:47)
[2020-05-22 06:17] LABS: Glucose,Whole Blood 104 mg/dL (75-99)
[2020-05-22] MEDS: INSULIN ASPART (NovoLOG) 100 UNIT/ML VIAL SQ SCH ×4 (06:29→22:17)
[2020-05-22] MEDS: LEVOTHYROXINE 75 MCG TAB PO SCH (06:53)
[2020-05-22] MEDS: CALCIUM ACETATE 667 MG TAB PO SCH ×3 (06:53→18:22)
[2020-05-22] MEDS: MORPHINE SULFATE 4 MG/ML SYRINGE IV PRN ×3 (06:53→22:04)
[2020-05-22 07:28] LABS: Basophils # (A) 0.2 k/uL (0-0.2); Basophils % (A) 1 %; Eosinophils # (A) 0.2 k/uL (0-0.7); Eosinophils % (A) 1 %; HCT 22.6 % (34.0-46.0); HGB 7.5 gm/dL (11.4-16.0); Hypochromasia Marked; Lymphocytes # (A) 2.8 k/uL (1.0-4.8); Lymphocytes % (A) 22 %; MCH 33.5 pg (25.0-35.0); MCHC 33.1 g/dL (31.0-37.0); MCV 101.3 fL (80.0-100.0); Macrocytosis Slight; Monocytes % (A) 8 %; Neutrophils # (A) 8.2 k/uL (1.3-7.7); Neutrophils % (A) 66 %; Platelet Count 155 k/uL (150-450); Poikilocytosis Moderate; RBC 2.23 m/uL (3.80-5.40); WBC 12.6 k/uL (3.8-10.6)
[2020-05-22 07:51] LABS: Calcium 8.1 mg/dL (8.4-10.2); Magnesium 1.9 mg/dL (1.6-2.3); Potassium 4.7 mmol/L (3.5-5.1)
--- NOTE | 2020-05-22 09:20 | P.PN ---
Subjective Progress Note Date: 05/22/20 His evaluated today status post incision and drainage of a large hematoma the lateral aspect of the right lower extremity. The patient indicates there is some discomfort but otherwise voices no complaints. She is eating and voiding without issue. My evaluation revealed of the leg to be free of edema. The wound is clean. It is well drained. There is no sign or symptom of ongoing infectious issue. The wound is to be redressed with Adaptic Curlex and Elmer wrap. I believe the patient can be managed as an outpatient with home health care nursing for daily dressing changes. I believe oral antibiotics are appropriate with coverage aimed at staff/strep type organisms. Outpatient follow-up and wound care is also appropriate. This was discussed with Dr. Bay. Objective - Vital Signs Vital signs: Vital Signs Temp 98.1 F 05/21/20 20:00 Pulse 81 05/22/20 03:35 Resp 20 05/22/20 03:35 BP 135/62 05/22/20 03:35 Pulse Ox 93 L 05/22/20 03:35 Intake & Output 05/21/20 05/22/20 05/22/20 18:59 06:59 18:59 Intake Total 910 480 240 Output Total 500 0 Balance 410 480 240 Weight 70 kg Intake: Intake, IV Titration 100 Amount Calcium Gluconate 1 gm In 100 Sodium Chloride 0.9% 100 ml @ 100 mls/hr IVPB ONCE ONE Rx#:[id number] Oral 500 480 240 Blood Product 310 Rc As-1 Unit 310 [id number] Output: Urine 0 Hemodialysis 500 Other: Voiding Method Bedpan # Voids 1 - Labs CBC & Chem 7: 05/22/20 06:45 05/22/20 06:45 Labs: Abnormal Lab Results - Last 24 Hours (Table) 05/20/20 05/21/20 05/21/20 Range/Units 19:28 06:19 11:41 WBC (3.8-10.6) k/uL RBC (3.80-5.40) m/uL Hgb (11.4-16.0) gm/dL Hct (34.0-46.0) % MCV (80.0-100.0) fL RDW (11.5-15.5) % Plt Count (150-450) k/uL Neutrophils # (1.3-7.7) k/uL Sodium (137-145) mmol/L BUN (7-17) mg/dL Creatinine (0.52-1.04) mg/dL POC Glucose (mg/dL) 144 H 111 H (75-99) mg/dL Calcium (8.4-10.2) mg/dL Crossmatch See Detail 05/21/20 05/22/20 05/22/20 Range/Units 18:02 06:08 06:45 WBC 11.8 H 12.6 H (3.8-10.6) k/uL RBC 2.61 L 2.23 L (3.80-5.40) m/uL Hgb 8.6 L D 7.5 L (11.4-16.0) gm/dL Hct 26.6 L 22.6 L (34.0-46.0) % MCV 101.8 H 101.3 H (80.0-100.0) fL RDW 16.5 H 16.0 H (11.5-15.5) % Plt Count 144 L (150-450) k/uL Neutrophils # 8.1 H 8.2 H (1.3-7.7) k/uL Sodium (137-145) mmol/L BUN (7-17) mg/dL Creatinine (0.52-1.04) mg/dL POC Glucose (mg/dL) 104 H (75-99) mg/dL Calcium (8.4-10.2) mg/dL Crossmatch 05/22/20 Range/Units 06:45 WBC (3.8-10.6) k/uL RBC (3.80-5.40) m/uL Hgb (11.4-16.0) gm/dL Hct (34.0-46.0) % MCV (80.0-100.0) fL RDW (11.5-15.5) % Plt Count (150-450) k/uL Neutrophils # (1.3-7.7) k/uL Sodium 134 L (137-145) mmol/L BUN 24 H (7-17) mg/dL Creatinine 3.63 H (0.52-1.04) mg/dL POC Glucose (mg/dL) (75-99) mg/dL Calcium 8.1 L (8.4-10.2) mg/dL Crossmatch
[2020-05-22] MEDS: METHADONE 10 MG TAB PO SCH (09:31)
[2020-05-22] MEDS: ACETAMINOPHEN TAB 325 MG TAB PO PRN (09:32)
[2020-05-22] MEDS: CEFDINIR 300 MG CAP PO SCH (09:34)
[2020-05-22] MEDS: INSULIN DETEMIR (LEVEMIR) 100 UNIT/ML SYR SQ SCH (09:34)
[2020-05-22] MEDS: FOLIC ACID-VIT B COMPLEX-VIT C 1 CAP PO SCH (09:34)
[2020-05-22] MEDS: PANTOPRAZOLE 40 MG TABLET PO SCH (09:34)
[2020-05-22] MEDS: ALPRAZolam 1 MG TAB PO PRN (09:37)
[2020-05-22 12:01] LABS: Glucose,Whole Blood 77 mg/dL (75-99)
--- NOTE | 2020-05-22 13:36 | PN ---
PROGRESS NOTE Patient is seen for followup for end-stage renal disease. She is scheduled for hemodialysis tomorrow. The patient is admitted with bleeding and wound on her right lower extremity. Currently she is in pain. No significant nausea and vomiting. No active bleeding noted from the leg at this point. PHYSICAL EXAMINATION: On examination today, blood pressure is 140/66, heart rate 82 per minute. She is afebrile. EXAMINATION OF THE HEART: S1, S2. EXAMINATION OF THE LUNGS: Decreased breath sounds at bases. Abdomen is soft, nontender. Examination of lower extremities shows left AKA. Right lower extremity has discoloration and hematoma which seems to have drained. LEGAL SECRETARY EXAM: Grossly intact. LABS: Labs show hemoglobin 7.5, sodium 134, potassium 4.7, BUN 24, creatinine 3.6. ASSESSMENT: 1. End-stage renal disease, on hemodialysis, on a Friday, , Friday schedule. 2. Bleeding with bleeding from the right leg, currently stable, being followed by Vascular Surgery. 3. Anemia of chronic disease, maintained on Aranesp. 4. Chronic kidney disease mineral bone disorder. 5. Atrial fibrillation with controlled ventricular response, Eliquis on hold due to recent bleeding. PLAN: Hemodialysis in a.m. Continue with Aranesp. MMODL / IJN: [id number] /
--- NOTE | 2020-05-22 16:04 | P.PN ---
Subjective Progress Note Date: 05/22/20 Patient was seen and examined at the bedside on 05/22. She reported continued severe right lower extremity pain. Denied additional complaints. Denied fever, chills, chest pain, shortness of breath. Objective - Vital Signs Vital signs: Vital Signs Temp 98.1 F 05/22/20 08:50 Pulse 82 05/22/20 08:50 Resp 20 05/22/20 08:50 BP 140/66 05/22/20 08:50 Pulse Ox 91 L 05/22/20 08:50 Intake & Output 05/21/20 05/22/20 05/22/20 18:59 06:59 18:59 Intake Total 910 480 240 Output Total 500 0 Balance 410 480 240 Weight 70 kg Intake: Intake, IV Titration 100 Amount Calcium Gluconate 1 gm In 100 Sodium Chloride 0.9% 100 ml @ 100 mls/hr IVPB ONCE ONE Rx#:[id number] Oral 500 480 240 Blood Product 310 Rc As-1 Unit 310 [id number] Output: Urine 0 Hemodialysis 500 Other: Voiding Method Bedpan Bedpan # Voids 1 - Exam General: Chronically ill-appearing female, non-toxic, in no acute distress HEENT: NC/AT, anicteric sclerae, moist conjunctiva, no lid-lag, PERRLA Cardiovascular: S1/S2 wnl, no murmurs, rubs, or gallops Lungs: Clear to auscultation, normal respiratory effort, no accessory muscle use Abdominal: Soft, non-tender, non-distended, no guarding, rebound, or rigidity Extremities: RLE lateral large wound without purulent drainage; R foot multiple amputations w/ deformity Psychiatric: Alert and oriented to person, place and time, appropriate affect Neuro: No focal deficits, moving all extremities - Labs CBC & Chem 7: 05/22/20 06:45 05/22/20 06:45 Labs: Abnormal Lab Results - Last 24 Hours (Table) 05/20/20 05/21/20 05/21/20 Range/Units 19:28 06:19 18:02 WBC 11.8 H (3.8-10.6) k/uL RBC 2.61 L (3.80-5.40) m/uL Hgb 8.6 L D (11.4-16.0) gm/dL Hct 26.6 L (34.0-46.0) % MCV 101.8 H (80.0-100.0) fL RDW 16.5 H (11.5-15.5) % Plt Count 144 L (150-450) k/uL Neutrophils # 8.1 H (1.3-7.7) k/uL Sodium (137-145) mmol/L BUN (7-17) mg/dL Creatinine (0.52-1.04) mg/dL POC Glucose (mg/dL) 144 H (75-99) mg/dL Calcium (8.4-10.2) mg/dL Crossmatch See Detail 05/22/20 05/22/20 05/22/20 Range/Units 06:08 06:45 06:45 WBC 12.6 H (3.8-10.6) k/uL RBC 2.23 L (3.80-5.40) m/uL Hgb 7.5 L (11.4-16.0) gm/dL Hct 22.6 L (34.0-46.0) % MCV 101.3 H (80.0-100.0) fL RDW 16.0 H (11.5-15.5) % Plt Count (150-450) k/uL Neutrophils # 8.2 H (1.3-7.7) k/uL Sodium 134 L (137-145) mmol/L BUN 24 H (7-17) mg/dL Creatinine 3.63 H (0.52-1.04) mg/dL POC Glucose (mg/dL) 104 H (75-99) mg/dL Calcium 8.1 L (8.4-10.2) mg/dL Crossmatch Assessment and Plan Plan: RLE hematoma -S/p rupture -Vascular surgery recommendations appreciated -Continue to hold Eliquis at this time -Continue with oral antibiotics at this time Acute blood loss anemia, secondary to right lower extremity hematoma -Continue to monitor hemoglobin every 12 hourly with transfusion for less than 7 hemoglobin -Status post 2 units PRBCs ESRD on hemodialysis via left arm AV graft -Continue hemodialysis A. fib -Continue to hold Eliquis for now in setting of acute blood loss anemia DM -Discontinue Levemir in setting of low normal blood glucose levels Hypertension, HLD -C/w home meds Discussed with: Patient Anticipated discharge date: in am Anticipated discharge place: Home A total of 35 minutes was spent on the care of this complex patient more than 50% of the time was spent in counseling and care coordination.
[2020-05-22 16:41] LABS: Glucose,Whole Blood 128 mg/dL (75-99)
[2020-05-22 18:30] LABS: Anisocytosis Slight; HCT 22.9 % (34.0-46.0); HGB 7.2 gm/dL (11.4-16.0); Hypochromasia Marked; MCH 32.2 pg (25.0-35.0); MCHC 31.4 g/dL (31.0-37.0); MCV 102.7 fL (80.0-100.0); Macrocytosis Moderate; Mean Platelet Volume 7.6; Platelet Count 161 k/uL (150-450); Poikilocytosis Moderate; RBC 2.23 m/uL (3.80-5.40); RDW 16.2 % (11.5-15.5); WBC 11.1 k/uL (3.8-10.6)
[2020-05-22] MEDS: ATORVASTATIN 40 MG TAB PO SCH (22:04)
[2020-05-22] MEDS: SODIUM CHLORIDE 0.9% 1,000 ML IV SCH (22:04)
[2020-05-22 22:06] LABS: Glucose,Whole Blood 160 mg/dL (75-99)
[2020-05-23] MEDS: MORPHINE SULFATE 4 MG/ML SYRINGE IV PRN ×4 (02:09→20:55)
[2020-05-23] MEDS: ALPRAZolam 1 MG TAB PO PRN ×2 (02:50→18:19)
[2020-05-23 06:15] LABS: Glucose,Whole Blood 108 mg/dL (75-99)
[2020-05-23] MEDS: INSULIN ASPART (NovoLOG) 100 UNIT/ML VIAL SQ SCH ×4 (06:17→20:43)
[2020-05-23] MEDS: LEVOTHYROXINE 75 MCG TAB PO SCH (06:44)
[2020-05-23] MEDS: CALCIUM ACETATE 667 MG TAB PO SCH ×3 (06:44→18:19)
[2020-05-23 07:05] LABS: Anisocytosis Slight; HCT 22.7 % (34.0-46.0); HGB 7.3 gm/dL (11.4-16.0); Hypochromasia Marked; MCH 33.1 pg (25.0-35.0); MCV 103.5 fL (80.0-100.0); Macrocytosis Moderate; Mean Platelet Volume 8.1; Platelet Count 156 k/uL (150-450); Poikilocytosis Slight; RDW 16.1 % (11.5-15.5); WBC 11.6 k/uL (3.8-10.6)
[2020-05-23 07:22] LABS: Calcium 7.9 mg/dL (8.4-10.2)
[2020-05-23] MEDS: METHADONE 10 MG TAB PO SCH (09:04)
[2020-05-23] MEDS: CEFDINIR 300 MG CAP PO SCH (09:04)
[2020-05-23] MEDS: FOLIC ACID-VIT B COMPLEX-VIT C 1 CAP PO SCH (09:04)
[2020-05-23] MEDS: PANTOPRAZOLE 40 MG TABLET PO SCH (09:04)
--- NOTE | 2020-05-23 11:12 | P.PN ---
Subjective Progress Note Date: 05/23/20 No new complaints. Has swelling in her left arm by site of fistula. Objective - Vital Signs Vital signs: Vital Signs Temp 98.7 F 05/23/20 08:05 Pulse 78 05/23/20 08:05 Resp 18 05/23/20 08:05 BP 157/70 05/23/20 08:05 Pulse Ox 96 05/23/20 08:05 Intake & Output 05/22/20 05/23/20 05/23/20 18:59 06:59 18:59 Intake Total 480 240 240 Output Total 220 400 Balance 480 20 -160 Weight 71 kg Intake: Oral 480 240 240 Output: Urine 220 400 Stool 0 0 Other: Voiding Method Bedpan Bedpan Bedpan # Voids 1 - Exam Gen: awake, alert HEENT: normocephalic, atraumatic, good hearing acuity, moist mucous membranes Resp: good air exchange, breathing comfortably with no accessory muscle use CVS: good distal perfusion x 4, GI: soft, NTTP, ND : no SPT, no CVAT, mayorga catheter not present MSK: no pitting edema, no clubbing, AV fistula has a positive bruit with palpable thrill Neuro: non-focal, moving all extremities Psych: cooperative, euthymic mood - Labs CBC & Chem 7: 05/23/20 06:30 05/23/20 06:30 Labs: Abnormal Lab Results - Last 24 Hours (Table) 05/22/20 05/22/20 05/22/20 Range/Units 16:39 18:04 22:05 WBC 11.1 H (3.8-10.6) k/uL RBC 2.23 L (3.80-5.40) m/uL Hgb 7.2 L (11.4-16.0) gm/dL Hct 22.9 L (34.0-46.0) % MCV 102.7 H (80.0-100.0) fL RDW 16.2 H (11.5-15.5) % Sodium (137-145) mmol/L BUN (7-17) mg/dL Creatinine (0.52-1.04) mg/dL POC Glucose (mg/dL) 128 H 160 H (75-99) mg/dL Calcium (8.4-10.2) mg/dL 05/23/20 05/23/2020 Range/Units 06:14 06:30 06:30 WBC 11.6 H (3.8-10.6) k/uL RBC 2.20 L (3.80-5.40) m/uL Hgb 7.3 L (11.4-16.0) gm/dL Hct 22.7 L (34.0-46.0) % MCV 103.5 H (80.0-100.0) fL RDW 16.1 H (11.5-15.5) % Sodium 132 L (137-145) mmol/L BUN 41 H (7-17) mg/dL Creatinine 5.64 H (0.52-1.04) mg/dL POC Glucose (mg/dL) 108 H (75-99) mg/dL Calcium 7.9 L (8.4-10.2) mg/dL Assessment and Plan Assessment: RLE hematoma -S/p rupture -Vascular surgery recommendations appreciated -Continue to hold Eliquis at this time -Continue with oral antibiotics at this time Clotted AV Fistula - vascular aware - LUE US pending - Pt NPO for possible procedure. Acute blood loss anemia, secondary to right lower extremity hematoma -Continue to monitor hemoglobin every 12 hourly with transfusion for less than 7 hemoglobin -Status post 2 units PRBCs ESRD on hemodialysis via left arm AV graft -Continue hemodialysis A. fib -Continue to hold Eliquis for now in setting of acute blood loss anemia DM -Discontinue Levemir in setting of low normal blood glucose levels Hypertension, HLD -C/w home meds Discussed with: Patient Anticipated discharge date: in am Anticipated discharge place: Home A total of 35 minutes was spent on the care of this complex patient more than 50% of the time was spent in counseling and care coordination.
[2020-05-23 11:29] LABS: Glucose,Whole Blood 148 mg/dL (75-99)
--- NOTE | 2020-05-23 12:22 | US ---
EXAMINATION TYPE: US venous doppler duplex UE LT DATE OF EXAM: 05/23/2020 COMPARISON: NONE CLINICAL HISTORY: possible clot in fistula and swelling lower arm . SIDE PERFORMED: Left Left Arm: Negative for DVT The fistula is completely clotted off going up the arm from access site. There is a bandage over acce ss site that limits exam. Going into the lower arm the brachial artery enlarges causing arm swelling. There is another outpouching of the artery lower down the arm. IMPRESSION: 1. Thrombus obstructing the fistula flow 2. Deep venous thrombosis is not otherwise identified
--- NOTE | 2020-05-23 13:11 | P.CON ---
Consult Note - . Consult date: 05/23/20 Assessment/Plan:: This is a wound care consultation: Please refer to internal medicine and vascular surgery consult for the majority of her history. Relevant issues include diabetes, chronic renal insufficiency on dialysis, A. fib on anticoagulants, lower extremity occlusive disease status post left AKA and toe amputations on the right, patient continues to smoke. The patient suffered an injury on the lateral aspect of her right lower leg. She developed a huge hematoma. She had some very obviously necrotic skin excised with the hematoma evacuated. On examination the patient is status post left AKA. The medial 3 toes of her right foot have been amputated. She has chronic skin changes of the uninvolved portion of the right lower leg skin. She has a lot of induration of the foot making pulses difficult to palpate, however, the skin color and temperature are normal. She has an area about 20 cm x 4 cm on the lateral aspect of the leg that is full-thickness skin loss with a fairly pink bed. Anterior to this there is an area contiguous with this of blackened skin about 20 cm by about 7 cm. Impression: Multiple comorbidities as described above. Large area of skin necrosis secondary to hematoma. Recommendation: I discussed the case with Dr. Rayo who did the debridement. We will utilize absorptive silver as a dressing for now. We would be happy to see the patient in wound care on a weekly basis. Depending on the maturation of the area of skin necrosis and the level of sensitivity, we will either remove the necrotic skin in wound care or discuss the potential for a debridement under anesthesia by vascular surgery.
--- NOTE | 2020-05-23 14:36 | CDI ---
Documentation Clarification Form Date: 05/23/2020 02:27:18 PM From: Ivory ElliottPrettyLISSA, CCDS Admit Date: 05/20/2020 08:09:00 PM Patient Name: Raquel Luevano Visit Number: [id number] Discharge Date: ATTENTION: The Clinical Documentation Specialists (CDI) and [facility] Coding Staff appreciate your assistance in clarifying documentation. Please respond to the clarification below the line at the bottom and electronically sign. The CDI & [facility] Coding staff will review the response and follow-up if needed. Please note: Queries are made part of the Legal Health Record. If you have any questions, please contact the author of this message via ITS. Dr. Shraddha Henson: Atrial Fibrillation with controlled ventricular response is documented in the 05/20 ED Note, the 05/20 History & Physical, the 05/21 Nephrology Consult, the 05/21 Vascular Surgery Consult, the 05/21 Surgical Consult and subsequent Progress Notes without further specificity. 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 Clinical Indicators: 69 yo female presented to the ED on 05/20 after falling while trying to transfer from the toilet to her wheelchair, she presented with a laceration and large hematoma on her right lower leg. EKG: no EKG. Treatment: Eliquis is on hold due Acute Blood Loss Anemia secondary to right lower leg laceration & hematoma. Consults: Cardiology is not documented. In your professional opinion, can you please clarify the type of Atrial Fibrillation, if known? Chronic/Permanent Paroxysmal Persistent Other, please specify Unable to determine (Last Revision: August 2017) Paroxysmal Atrial Fibrillation MTDD
--- NOTE | 2020-05-23 15:09 | P.PN ---
Subjective Progress Note Date: 05/23/20 Patient seen and examined. Notified by dialysis that the left upper extremity graft has thrombosed and unable to utilize. Also notified by the nursing staff that there is some swelling and questionable pulsation of the left forearm. Long discussion was had with the daughter and patient regarding the timeframe and elucidation of these issues. At the time of her initial procedure, an antecubital incision was made and the veins are found to be too small therefore supposedly graft was placed. She has had multiple interventions of her left upper extremity graft initially after being placed. It was then being utilized, although there was subsequent thrombosis at which time our group got involved. Attempted percutaneous thrombectomy were performed and unsuccessful due to the small caliber distal veins. A tunnel catheter was placed. She then underwent outpatient revision of her graft with a patch venoplasty of her distal outflow. The graft had been functioning well for the past 2 weeks therefore it was decided the tunnel catheter may be removed. In this interim she states she has had increasing swelling of her left forearm that was painful and essentially separate from any swelling or ecchymosis she had of the surgical site. Her daughter notes that this is an area she routinely utilizes for moving herself from her wheelchair and transferring. After the swelling began a few weeks ago, she also had sustained a fall and surgical a large hematoma of her right leg. We were consult of this hospitalization for the hematoma and she underwent incision and drainage of this as well as the catheter removal on 05/21. Again subsequently today the graft is noted to be thrombosed. She denies any significant pain other than at her leg wound. She states is somewhat uncomfortable at her arm but no significant pain. Objective - Vital Signs Vital signs: Vital Signs Temp 97.6 F 05/23/20 14:16 Pulse 78 05/23/20 14:16 Resp 20 05/23/20 14:16 BP 149/67 05/23/20 14:16 Pulse Ox 97 05/23/20 12:20 Intake & Output 05/22/20 05/23/20 05/23/20 18:59 06:59 18:59 Intake Total 480 240 240 Output Total 220 400 Balance 480 20 -160 Weight 71 kg Intake: Oral 480 240 240 Output: Urine 220 400 Stool 0 0 Hemodialysis 0 Other: Voiding Method Bedpan Bedpan Bedpan # Voids 1 - Exam Gen. is a pleasant and cooperative chronically ill female in no acute distress. HEENT is normocephalic, atraumatic, extraocular motion intact. Heart is regular in rate and rhythm. Lungs are clear. Abdomen is soft. Right upper extremities no clubbing, cyanosis or edema. Left upper extremity AV graft non-pulsatile. Thrombosed. At the proximal forearm there is an area of fullness that is pulsatile in nature. Right lower extremity area of previous incision and drainage with necrotic overlying skin. No purulent drainage. Normal mood and affect - Labs CBC & Chem 7: 05/23/20 06:30 05/23/20 06:30 Labs: Abnormal Lab Results - Last 24 Hours (Table) 05/22/20 05/22/20 05/22/20 Range/Units 16:39 18:04 22:05 WBC 11.1 H (3.8-10.6) k/uL RBC 2.23 L (3.80-5.40) m/uL Hgb 7.2 L (11.4-16.0) gm/dL Hct 22.9 L (34.0-46.0) % MCV 102.7 H (80.0-100.0) fL RDW 16.2 H (11.5-15.5) % Sodium (137-145) mmol/L BUN (7-17) mg/dL Creatinine (0.52-1.04) mg/dL POC Glucose (mg/dL) 128 H 160 H (75-99) mg/dL Calcium (8.4-10.2) mg/dL 05/23/20 05/23/20 05/23/20 Range/Units 06:14 06:30 06:30 WBC 11.6 H (3.8-10.6) k/uL RBC 2.20 L (3.80-5.40) m/uL Hgb 7.3 L (11.4-16.0) gm/dL Hct 22.7 L (34.0-46.0) % MCV 103.5 H (80.0-100.0) fL RDW 16.1 H (11.5-15.5) % Sodium 132 L (137-145) mmol/L BUN 41 H (7-17) mg/dL Creatinine 5.64 H (0.52-1.04) mg/dL POC Glucose (mg/dL) 108 H (75-99) mg/dL Calcium 7.9 L (8.4-10.2) mg/dL 05/23/20 Range/Units 11:27 WBC (3.8-10.6) k/uL RBC (3.80-5.40) m/uL Hgb (11.4-16.0) gm/dL Hct (34.0-46.0) % MCV (80.0-100.0) fL RDW (11.5-15.5) % Sodium (137-145) mmol/L BUN (7-17) mg/dL Creatinine (0.52-1.04) mg/dL POC Glucose (mg/dL) 148 H (75-99) mg/dL Calcium (8.4-10.2) mg/dL Assessment and Plan Assessment: End-stage renal disease on hemodialysis Thrombosed left upper extremity AV graft Left forearm pulsatile mass Right lower leg hematoma secondary to fall, status post evacuation, necrotic tissue Atrial fibrillation. Exam blood thinners Hypertension Diabetes Chronic methadone Plan: An ultrasound was performed confirming thrombosis of the left upper extremity fistula. Also the left forearm was visualized revealing areas of dilatation. No obvious extravasation noted. It is very hard to delineate whether this is related to aneurysmal disease/pseudoaneurysm. It is not within the area of Our previous recent surgical interventions although uncertain if this is in a location of a previous anastomosis versus fistula creation. I will plan to order a CT angiogram of the extremity to further evaluate. If there is any intervention required, we'll plan to do this tomorrow along with an open thrombectomy of her left upper extremity graft and possible tunneled catheter placement. As well as debridement of her right lower extremity. Risks and benefits of the procedure were discussed with the patient as well as her daughter at significant length for greater than 30 minutes. They seemingly understand. All questions are answered.
--- NOTE | 2020-05-23 15:32 | PN ---
PROGRESS NOTE Patient is seen for followup for end-stage renal disease. This morning she could not have dialysis as her graft appeared to be clotted. There was also some pulsation noted near her wrist. Therefore, Vascular Surgery has been asked to evaluate the patient. She recently had her PermCath removed actually yesterday since her AV graft was functioning fairly well. Last dialysis was on 05/21/2020. PHYSICAL EXAMINATION: On examination today, this morning she was otherwise comfortable not in any acute distress. Blood pressure was 157/70, heart rate of 80 per minute. She was afebrile. EXAMINATION OF THE HEART: S1, S2. EXAMINATION OF THE LUNGS: Decreased breath sounds at bases. Abdomen is soft, nontender. Examination of lower extremities shows left AKA. Right lower extremity is currently wrapped. HOTEL YARDPERSON EXAM: Grossly intact. LABS: Labs show sodium of 132, potassium 5.0, chloride 102, hemoglobin 7.3 g/dL. ASSESSMENT: 1. End-stage renal disease, on hemodialysis, on a Friday, , Friday schedule. The patient could not be dialyzed. Vascular Surgery currently evaluating her AV graft. 2. Hematoma, status post evacuation of hematoma on the right lower extremity, maintained on antibiotics. 3. Anemia with bleeding from the leg as well as anemia of chronic disease, maintained on Aranesp. 4. Dyslipidemia. 5. Hypothyroidism. PLAN: Check iron profile. Continue with Aranesp. Increase dose to 60 mcg and we will plan for dialysis tomorrow once the access is revised or a catheter is replaced. MMODL / IJN: [id number] /
[2020-05-23 16:53] LABS: Glucose,Whole Blood 115 mg/dL (75-99)
--- NOTE | 2020-05-23 17:05 | CT ---
EXAMINATION TYPE: CT angio upper extremity LT DATE OF EXAM: 05/23/2020 4:51 PM COMPARISON: HISTORY: Left sided arm swelling CT DLP: 764.9 mGycm Automated exposure control for dose reduction was used. TECHNIQUE: Performed with IV Contrast, patient injected with 100 mL of Isovue 370. Three-D reconstructed images performed separately on the computer by the technologist are presented. FINDINGS: Arterial flows evident to the elbow. There is an abrupt cut off with no additional flow. This appear s to be distal to the fistula anastomosis on the coronal plane images. No flow into the fistula is ev ident. In the axial plane thrombus is identified in the proximal fistula, series 401 image 92. On the Hernandez l plane imaging arterial flow into the forearm is identified. There is air within subcutaneous tissues. Tiny amount of air is within the region of the thrombus wit hin the distal upper extremity. IMPRESSION: OCCLUSION OF THE PROXIMAL FISTULA WITH THROMBUS IDENTIFIED.
[2020-05-23 20:23] LABS: Glucose,Whole Blood 129 mg/dL (75-99)
[2020-05-23] MEDS: ATORVASTATIN 40 MG TAB PO SCH (20:55)
--- NOTE | 2020-05-23 21:03 | P.PN ---
Progress Note - Text Progress Note Date: 05/23/20 UPDATE CTA LUE reviewed. 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 Discussed in detail with patient regarding concerns and plan. Will plan to proceed tomorrow with tunneled dialysis catheter and forgo graft salvage. Discussed need for aneurysm repair with interposition donor vein graft. Attempts to obtain graft set in motion and hopefully planning to proceed with bypass Friday. Discussed risks and benefits of surgical and non operative options. The patient seemingly understands and would like to proceed as such. Multiple attempts to call daughter unsuccessful with no answer and full voicemail box. Will Attempt again tomorrow.
[2020-05-23] MEDS: SODIUM CHLORIDE 0.9% 1,000 ML IV SCH (21:44)
[2020-05-24] MEDS: MORPHINE SULFATE 4 MG/ML SYRINGE IV PRN ×4 (03:28→20:50)
[2020-05-24] MEDS: ALPRAZolam 1 MG TAB PO PRN (04:32)
[2020-05-24 06:04] LABS: Glucose,Whole Blood 133 mg/dL (75-99)
[2020-05-24] MEDS: INSULIN ASPART (NovoLOG) 100 UNIT/ML VIAL SQ SCH ×4 (06:33→21:17)
[2020-05-24] MEDS: LEVOTHYROXINE 75 MCG TAB PO SCH (06:33)
[2020-05-24 07:29] LABS: % Iron Saturation 9.35 (12.00-45.00)
--- NOTE | 2020-05-24 08:46 | P.PN ---
Subjective Patient seen and examined. No complaints. No issues overnight. Objective - Vital Signs Vital signs: Vital Signs Temp 98.1 F 05/24/20 03:54 Pulse 72 05/24/20 03:54 Resp 16 05/24/20 03:54 BP 151/74 05/24/20 03:54 Pulse Ox 94 L 05/24/20 03:54 Intake & Output 05/23/20 05/24/20 05/24/20 18:59 06:59 18:59 Intake Total 1020 Output Total 850 150 Balance 170 -150 Weight 71.5 kg Intake: Oral 1020 Output: Urine 850 150 Stool 0 Hemodialysis 0 Other: Voiding Method Bedpan Bedside Commode # Voids 2 - Exam Gen. is a pleasant and cooperative chronically ill female in no acute distress. HEENT is normocephalic, atraumatic, extraocular motion intact. Heart is irregular in rate and rhythm. Lungs are clear. Abdomen is soft. Right upper extremities no clubbing, cyanosis or edema. Left upper extremity AV graft non- pulsatile. Thrombosed. At the proximal forearm there is an area of fullness that is pulsatile in nature. Right lower extremity area of previous incision and drainage with necrotic overlying skin. No purulent drainage. Normal mood and affect - Labs CBC & Chem 7: 05/23/20 06:30 05/23/20 06:30 Labs: Abnormal Lab Results - Last 24 Hours (Table) 05/23/20 05/23/20 05/23/20 Range/Units 06:30 11:27 16:52 POC Glucose (mg/dL) 148 H 115 H (75-99) mg/dL Iron 20 L (50-170) ug/dL TIBC 214 L (228-460) ug/dL % Saturation 9.35 L (12.00-45.00) 05/23/20 05/24/20 Range/Units 20:19 06:03 POC Glucose (mg/dL) 129 H 133 H (75-99) mg/dL Iron (50-170) ug/dL TIBC (228-460) ug/dL % Saturation (12.00-45.00) Assessment and Plan Assessment: End-stage renal disease on hemodialysis Thrombosed left upper extremity AV graft Left forearm pulsatile mass - large radial artery aneurysm Right lower leg hematoma secondary to fall, status post evacuation, necrotic tissue Atrial fibrillation. Exam blood thinners Hypertension Diabetes Chronic methadone Plan: Long discussion had with patient and her daughter regarding the plan going forward. We will plan to place a tunneled dialysis catheter today. Vein for a radial artery bypass is being obtained and we'll plan to proceed with this on Friday as well as debridement of her extremity at that time. Risks and benefits including bleeding, infection, cardiac and respiratory issues as well as loss of limb were discussed with the patient. She seemingly understands and is willing to proceed as such. Time with Patient: Greater than 30 (Discussion with patient and daughter over phone)
[2020-05-24] MEDS: METHADONE 10 MG TAB PO SCH (09:02)
[2020-05-24] MEDS: CEFDINIR 300 MG CAP PO SCH (09:04)
[2020-05-24] MEDS: CALCIUM ACETATE 667 MG TAB PO SCH ×3 (09:05→19:05)
[2020-05-24] MEDS: FOLIC ACID-VIT B COMPLEX-VIT C 1 CAP PO SCH (09:05)
[2020-05-24] MEDS: PANTOPRAZOLE 40 MG TABLET PO SCH (09:05)
[2020-05-24 11:32] LABS: Glucose,Whole Blood 88 mg/dL (75-99)
--- NOTE | 2020-05-24 12:15 | P.PN ---
Subjective Progress Note Date: 05/24/20 Principal diagnosis: Leg hematoma Patient is feeling okay this morning. No significant pain. No shortness of breath. No overnight events. Objective - Vital Signs Vital signs: Vital Signs Temp 98.2 F 05/24/20 08:00 Pulse 70 05/24/20 08:00 Resp 18 05/24/20 08:00 BP 160/65 05/24/20 08:00 Pulse Ox 94 L 05/24/20 03:54 Intake & Output 05/23/20 05/24/20 05/24/20 18:59 06:59 18:59 Intake Total 1020 Output Total 850 150 100 Balance 170 -150 -100 Weight 71.5 kg Intake: Oral 1020 Output: Urine 850 150 100 Stool 0 Hemodialysis 0 Other: Voiding Method Bedpan Bedside Commode # Voids 2 - Exam Gen. is a pleasant and cooperative chronically ill female in no acute distress. HEENT is normocephalic, atraumatic, extraocular motion intact. Heart is irregular in rate and rhythm. Lungs are clear. Abdomen is soft. Nontender and nondistended. Right upper extremities no clubbing, cyanosis or edema. Left upper extremity AV graft non-pulsatile. Thrombosed. At the proximal forearm there is an area of fullness that is pulsatile in nature. Right lower extremity area of previous incision and drainage with necrotic overlying skin. No purulent drainage. Psych Normal mood and affect - Labs CBC & Chem 7: 05/23/20 06:30 05/23/20 06:30 Labs: Abnormal Lab Results - Last 24 Hours (Table) 05/23/20 05/23/20 05/23/20 Range/Units 06:30 16:52 20:19 POC Glucose (mg/dL) 115 H 129 H (75-99) mg/dL Iron 20 L (50-170) ug/dL TIBC 214 L (228-460) ug/dL % Saturation 9.35 L (12.00-45.00) 05/24/20 Range/Units 06:03 POC Glucose (mg/dL) 133 H (75-99) mg/dL Iron (50-170) ug/dL TIBC (228-460) ug/dL % Saturation (12.00-45.00) Assessment and Plan Plan: RLE hematoma -S/p rupture -Status post treatment -Vascular surgery recommendations appreciated -Continue to hold Eliquis at this time -Continue with oral antibiotics at this time Clotted left upper extremity AV Fistula Left forearm pulsatile mass - large radial artery aneurysm -Vascular following -Vascular planning to place a tunneled dialysis catheter today. Vein for a radial artery bypass is being obtained as well. Acute blood loss anemia, secondary to right lower extremity hematoma -Continue to monitor hemoglobin with transfusion for less than 7 -Status post 2 units PRBCs ESRD on hemodialysis via left arm AV graft -Continue hemodialysis A. fib -Continue to hold Eliquis for now in setting of acute blood loss anemia DM -Discontinue Levemir in setting of low normal blood glucose levels Hypertension, HLD -C/w home meds Discussed with: Patient Anticipated discharge date: [address]: Home A total of 35 minutes was spent on the care of this complex patient more than 50% of the time was spent in counseling and care coordination.
[2020-05-24 12:58] LABS: Anisocytosis Slight; Basophils % (A) 0 %; Eosinophils # (A) 0.4 k/uL (0-0.7); Eosinophils % (A) 3 %; HCT 28.1 % (34.0-46.0); Hypochromasia Moderate; Lymphocytes # (A) 2.8 k/uL (1.0-4.8); Lymphocytes % (A) 23 %; MCH 32.9 pg (25.0-35.0); MCHC 32.1 g/dL (31.0-37.0); MCV 102.4 fL (80.0-100.0); Macrocytosis Moderate; Mean Platelet Volume 7.5; Monocytes # (A) 0.7 k/uL (0-1.0); Monocytes % (A) 5 %; Neutrophils # (A) 7.8 k/uL (1.3-7.7); Neutrophils % (A) 65 %; Platelet Count 200 k/uL (150-450); Poikilocytosis Slight; RBC 2.74 m/uL (3.80-5.40); RDW 17.7 % (11.5-15.5)
--- NOTE | 2020-05-24 13:42 | PN ---
PROGRESS NOTE Patient is seen for followup for end-stage renal disease. She was found to have aneurysm in the radial artery and is scheduled for surgery down the road. However, she will be having a PermCath placed today and we will not be using the AV fistula and as it is clotted and there are no plans on salvage of the fistula given the significant aneurysm formation down in her forearm. PHYSICAL EXAMINATION: On examination today, patient is comfortable. She denies any significant complaints. Blood pressure was 151/74, heart rate 72 per minute. She is afebrile. EXAMINATION OF THE HEART: S1, S2. EXAMINATION OF THE LUNGS: Decreased breath sounds at bases. Abdomen is soft, nontender. Examination of lower extremities shows right lower extremity currently wrapped. LABS: Labs show hemoglobin 9.0. Potassium was 5.0 on 05/23/2020. ASSESSMENT: 1. End-stage renal disease, on hemodialysis on a Friday, , Friday schedule. Patient will be dialyzed today and then she will run again tomorrow. Her catheter is scheduled for later on today around 4:00 and we will run a 2 hour treatment today. 2. Aneurysm formation in the radial artery with thrombosis of the left upper extremity AV graft with no plans for salvage of the graft and plan for PermCath placement today. 3. Hematoma right leg, status post evacuation. PLAN: Hemodialysis today and then again in a.m. as patient did have a CT angiogram yesterday. DAQUANL / VALN: [id number] /
[2020-05-24 16:40] LABS: Glucose,Whole Blood 80 mg/dL (75-99)
[2020-05-24] MEDS: ATORVASTATIN 40 MG TAB PO SCH (20:03)
[2020-05-24] MEDS: ACETAMINOPHEN TAB 325 MG TAB PO PRN (20:03)
[2020-05-24 20:20] LABS: Glucose,Whole Blood 66 mg/dL (75-99)
[2020-05-25] MEDS: MORPHINE SULFATE 4 MG/ML SYRINGE IV PRN ×5 (00:35→19:50)
[2020-05-25] MEDS: ALPRAZolam 1 MG TAB PO PRN ×3 (02:43→19:50)
[2020-05-25] MEDS: SODIUM CHLORIDE 0.9% 1,000 ML IV SCH ×2 (02:47→20:40)
[2020-05-25 06:16] LABS: Glucose,Whole Blood 152 mg/dL (75-99)
[2020-05-25] MEDS: LEVOTHYROXINE 75 MCG TAB PO SCH (06:24)
[2020-05-25] MEDS: CALCIUM ACETATE 667 MG TAB PO SCH ×3 (06:24→18:33)
[2020-05-25] MEDS: INSULIN ASPART (NovoLOG) 100 UNIT/ML VIAL SQ SCH ×5 (06:25→20:36)
[2020-05-25] MEDS ORDERED: IV FLUID CONTINUATION 200 ML IV ONE (07:36)
[2020-05-25 07:37] LABS: Anisocytosis Slight; Basophils % (A) 0 %; Eosinophils # (A) 0.2 k/uL (0-0.7); Eosinophils % (A) 2 %; HCT 23.4 % (34.0-46.0); Hypochromasia Moderate; Lymphocytes # (A) 1.8 k/uL (1.0-4.8); Lymphocytes % (A) 18 %; MCH 33.2 pg (25.0-35.0); MCV 103.6 fL (80.0-100.0); Macrocytosis Moderate; Mean Platelet Volume 8.1; Monocytes # (A) 0.8 k/uL (0-1.0); Monocytes % (A) 8 %; Neutrophils # (A) 6.8 k/uL (1.3-7.7); Neutrophils % (A) 70 %; Platelet Count 187 k/uL (150-450); Poikilocytosis Slight; RBC 2.25 m/uL (3.80-5.40); RDW 18.3 % (11.5-15.5); WBC 9.8 k/uL (3.8-10.6)
[2020-05-25] MEDS ORDERED: MIDAZOLAM 2 MG/2 ML VIAL IV ONE (07:40)
[2020-05-25] MEDS: LIDOCAINE 1% INJ 10MG/ML (10 ML MDV) SQ ONE ×2 (07:45→07:54)
[2020-05-25] MEDS ORDERED: SODIUM CHLORIDE 0.9% 1,000 ML IV ONE (07:45)
[2020-05-25] MEDS ORDERED: fentaNYL (PF) 50 MCG/ML 2 ML AMP IV ONE (07:54)
[2020-05-25 07:55] LABS: HGB 7.5 gm/dL (11.4-16.0)
--- NOTE | 2020-05-25 08:53 | XR ---
EXAMINATION TYPE: XR chest 1V portable DATE OF EXAM: 05/25/2020 COMPARISON: 04/19/2020 INDICATION: Line placement TECHNIQUE: Single frontal view of the chest is obtained. Chin overlies right apex FINDINGS: The heart size is normal. The pulmonary vasculature is normal. The lungs are clear. No pneumothorax is evident. Left-sided double-lumen catheter is been placed with tips in the proximal right atrium. Right-sided catheter is been removed. IMPRESSION: 1. No pneumothorax post line placement. Tips are within the proximal right atrium
--- NOTE | 2020-05-25 11:32 | IR ---
Fluoroscopy HISTORY: Pain 0.9 minutes fluoroscopy time supplied to the referring clinician. 152 intraoperative C-arm images do cument the procedure. See dictated report from vascular surgery.
[2020-05-25 11:56] LABS: Glucose,Whole Blood 132 mg/dL (75-99)
[2020-05-25 12:05] VITALS: BMI 26.9
--- NOTE | 2020-05-25 12:37 | P.PN ---
Subjective Progress Note Date: 05/25/20 Principal diagnosis: Leg hematoma Patient doing well, no new complaints. No significant pain. No fevers or chills. No nausea or vomiting. Objective - Vital Signs Vital signs: Vital Signs Temp 97.7 F 05/25/20 08:00 Pulse 92 05/25/20 11:50 Resp 18 05/25/20 11:50 BP 199/69 05/25/20 11:50 Pulse Ox 95 05/25/20 11:50 Intake & Output 05/24/20 05/25/20 05/25/20 18:59 06:59 18:59 Intake Total 340 Output Total 250 250 Balance -250 -250 340 Weight 73.5 kg 73.5 kg Intake: IV 100 Oral 240 Output: Urine 250 250 Other: Voiding Method Bedside Commode # Voids 1 - Exam Gen. is a pleasant and cooperative chronically ill female in no acute distress. HEENT is normocephalic, atraumatic, extraocular motion intact. Heart is irregular in rate and rhythm. Lungs are clear. Abdomen is soft. Nontender and nondistended. Right upper extremities no clubbing, cyanosis or edema. Left upper extremity AV graft non-pulsatile. Thrombosed. At the proximal forearm there is an area of fullness that is pulsatile in nature. Right lower extremity area of previous incision and drainage with necrotic o verlying skin. No purulent drainage. Psych Normal mood and affect - Labs CBC & Chem 7: 05/25/20 06:56 05/23/20 06:30 Labs: Abnormal Lab Results - Last 24 Hours (Table) 05/24/20 05/24/20 05/25/20 Range/Units 12:30 20:18 06:13 WBC 12.0 H (3.8-10.6) k/uL RBC 2.74 L (3.80-5.40) m/uL Hgb 9.0 L D (11.4-16.0) gm/dL Hct 28.1 L (34.0-46.0) % MCV 102.4 H (80.0-100.0) fL RDW 17.7 H (11.5-15.5) % Neutrophils # 7.8 H (1.3-7.7) k/uL POC Glucose (mg/dL) 66 L 152 H (75-99) mg/dL Crossmatch 05/25/20 05/25/20 05/25/20 Range/Units 06:56 09:15 11:44 WBC (3.8-10.6) k/uL RBC 2.25 L (3.80-5.40) m/uL Hgb 7.5 L D (11.4-16.0) gm/dL Hct 23.4 L (34.0-46.0) % MCV 103.6 H (80.0-100.0) fL RDW 18.3 H (11.5-15.5) % Neutrophils # (1.3-7.7) k/uL POC Glucose (mg/dL) 132 H (75-99) mg/dL Crossmatch See Detail Assessment and Plan Plan: RLE hematoma -S/p rupture -Status post debridement -Vascular surgery recommendations appreciated -Continue to hold Eliquis at this time -No evidence of infection. No antibiotics needed. Clotted left upper extremity AV Fistula/ large radial artery aneurysm -Fistula not salvageable. -S/P placement of tunneled dialysis catheter. -Vascular following, patient to undergo radial artery bypass tomorrow in addition to debridement of the right leg under general anaesthesia Acute blood loss anemia, secondary to right lower extremity hematoma -Continue to monitor hemoglobin with transfusion prn -Status post 2 units PRBCs -05/25: Hgb low again will transfuse 1 unit of PRBCs. ESRD on hemodialysis via left arm AV graft -Continue hemodialysis A. fib -Continue to hold Eliquis for now in setting of acute blood loss anemia DM -Discontinue Levemir in setting of low normal blood glucose levels Hypertension, HLD -C/w home meds Discussed with: Patient Anticipated discharge date: [address]: Home A total of 35 minutes was spent on the care of this complex patient more than 50% of the time was spent in counseling and care coordination.
[2020-05-25] MEDS: METHADONE 10 MG TAB PO SCH (13:35)
[2020-05-25] MEDS: CEFDINIR 300 MG CAP PO SCH (13:36)
[2020-05-25] MEDS: PANTOPRAZOLE 40 MG TABLET PO SCH (13:36)
[2020-05-25] MEDS: FOLIC ACID-VIT B COMPLEX-VIT C 1 CAP PO SCH (13:36)
--- NOTE | 2020-05-25 14:55 | PN ---
PROGRESS NOTE Patient is seen for followup for end-stage renal disease. She is seen on hemodialysis today. Patient had a left IJ PermCath placed. She is currently being dialyzed. PHYSICAL EXAMINATION: Blood pressure was elevated 163/86, heart rate 80 per minute, she is afebrile. Examination shows the right lower extremity currently wrapped. She has some edema in the left upper extremity. Abdomen is soft nontender. [employer] MANAGER exam grossly intact. LAB: Show hemoglobin of 7.5 g/dL. ASSESSMENT: 1. End-stage renal disease, on hemodialysis on a Friday, , Friday schedule. Patient could not be dialyzed yesterday as she did not have an access. She is being dialyzed today and then we will dialyze her again on Friday. 2. Thrombosed AV graft, left arm with aneurysm formation in the radial artery with plans for further surgery possibly Friday next week. 3. Hematoma right leg status post evacuation. 4. Chronic kidney disease mineral bone disorder. 5. Mild volume overload. Expect improvement with hemodialysis today. PLAN: Hemodialysis today, next treatment on May 27, 2019. Further intervention on the left arm access as per vascular surgery. MMODL / IJN: [id number] /
[2020-05-25 17:01] LABS: Glucose,Whole Blood 240 mg/dL (75-99)
[2020-05-25] MEDS: ACETAMINOPHEN TAB 325 MG TAB PO PRN (19:49)
[2020-05-25] MEDS: ATORVASTATIN 40 MG TAB PO SCH (19:50)
[2020-05-25 20:09] LABS: Glucose,Whole Blood 203 mg/dL (75-99)
[2020-05-25] MEDS: ONDANSETRON 4 MG/2 ML VIAL IVP PRN (20:36)
[2020-05-26] MEDS: MORPHINE SULFATE 4 MG/ML SYRINGE IV PRN ×3 (00:02→20:30)
[2020-05-26 00:45] LABS: Anisocytosis Slight; Basophils % (A) 0 %; Eosinophils # (A) 0.2 k/uL (0-0.7); Eosinophils % (A) 2 %; HCT 26.5 % (34.0-46.0); HGB 8.6 gm/dL (11.4-16.0); Hypochromasia Slight; Lymphocytes # (A) 1.7 k/uL (1.0-4.8); Lymphocytes % (A) 15 %; MCH 32.6 pg (25.0-35.0); MCHC 32.4 g/dL (31.0-37.0); MCV 100.7 fL (80.0-100.0); Macrocytosis Slight; Mean Platelet Volume 8.1; Monocytes # (A) 0.8 k/uL (0-1.0); Monocytes % (A) 7 %; Neutrophils # (A) 8.2 k/uL (1.3-7.7); Neutrophils % (A) 74 %; Platelet Count 140 k/uL (150-450); Poikilocytosis Moderate; RBC 2.63 m/uL (3.80-5.40); RDW 17.4 % (11.5-15.5); WBC 11.1 k/uL (3.8-10.6)
[2020-05-26] MEDS: CALCIUM ACETATE 667 MG TAB PO SCH ×3 (05:58→17:28)
[2020-05-26 05:59] LABS: Glucose,Whole Blood 89 mg/dL (75-99)
[2020-05-26] MEDS: INSULIN ASPART (NovoLOG) 100 UNIT/ML VIAL SQ SCH ×4 (06:00→20:27)
[2020-05-26] MEDS: LEVOTHYROXINE 75 MCG TAB PO SCH (06:07)
[2020-05-26 07:39] LABS: Anisocytosis Slight; Basophils % (A) 0 %; Eosinophils # (A) 0.2 k/uL (0-0.7); Eosinophils % (A) 2 %; HCT 28.2 % (34.0-46.0); HGB 9.1 gm/dL (11.4-16.0); Hypochromasia Moderate; Lymphocytes # (A) 1.6 k/uL (1.0-4.8); Lymphocytes % (A) 16 %; MCH 33.2 pg (25.0-35.0); MCHC 32.2 g/dL (31.0-37.0); MCV 103.1 fL (80.0-100.0); Macrocytosis Moderate; Mean Platelet Volume 7.7; Monocytes % (A) 10 %; Neutrophils # (A) 7.4 k/uL (1.3-7.7); Neutrophils % (A) 71 %; Platelet Count 168 k/uL (150-450); Poikilocytosis Moderate; RBC 2.74 m/uL (3.80-5.40); RDW 17.2 % (11.5-15.5); WBC 10.4 k/uL (3.8-10.6)
[2020-05-26 08:19] LABS: Potassium 4.9 mmol/L (3.5-5.1)
[2020-05-26] MEDS ORDERED: HEPARIN SODIUM,PORCINE 5,000 UNIT/ML 1 ML VIAL ONE (08:30)
[2020-05-26] MEDS ORDERED: LIDOCAINE 1% INJ 10MG/ML (20 ML MDV) ONE (08:30)
[2020-05-26] MEDS ORDERED: ALBUMIN HUMAN 5% (12.5gm) 250 ML BOTTLE IVPB ONE (08:30)
[2020-05-26] MEDS ORDERED: SUCCINYLCHOLINE CHLORIDE 100 MG/5 ML SYR IV ONE (08:30)
[2020-05-26] MEDS ORDERED: ROCURONIUM 10 MG/ML (10 ML VIAL) IV ONE (08:30)
[2020-05-26] MEDS ORDERED: PROPOFOL 10 MG/ML 20 ML VIAL IV ONE (08:30)
[2020-05-26] MEDS ORDERED: fentaNYL (PF) 50 MCG/ML 2 ML AMP ONE (08:30)
--- NOTE | 2020-05-26 08:33 | P.ANPRN ---
Procedure Note - Anesthesia - Invasive Line Right Arterial Line Time Out Performed: Yes (813) Date of Procedure: 05/26/20 Time of Procedure: 08:14 Location of Patient: PreOp Preparation: Sterile Prep, Sterile Dressing Arterial Line Location: Radial Ultrasound Used: Yes Purpose - Visualization and Identification of Vasculature: Yes Image Stored and Saved: No (Right radial arterial line [id number])
[2020-05-26] MEDS ORDERED: IV FLUID CONTINUATION 1,000 ML IV ONE (08:37)
[2020-05-26] MEDS ORDERED: HEPARIN SODIUM,PORCINE 2,000 UNIT in SODIUM CHLORIDE 0.9% 500 ML 500 ML IRRIGATION ONE (09:20)
[2020-05-26] MEDS ORDERED: ceFAZolin 2 GM in SODIUM CHLORIDE 0.9% 500 ML 500 ML IRRIGATION ONE (09:20)
[2020-05-26 09:47] LABS: Glucose,Whole Blood 70 mg/dL (75-99)
[2020-05-26] MEDS ORDERED: DESMOPRESSIN ACETATE 20 MCG in SODIUM CHLORIDE 0.9% 50 ML IVPB ONE (10:00)
[2020-05-26 10:52] LABS: Glucose,Whole Blood 66 mg/dL (75-99)
[2020-05-26 12:01] LABS: Glucose,Whole Blood 73 mg/dL (75-99)
[2020-05-26 13:38] LABS: Glucose,Whole Blood 76 mg/dL (75-99)
[2020-05-26 13:40] LABS: Allen Test Performed? Yes
[2020-05-26 13:40] LABS: Anisocytosis Slight; HCT 22.2 % (34.0-46.0); Hypochromasia Slight; MCH 32.1 pg (25.0-35.0); MCHC 31.4 g/dL (31.0-37.0); MCV 102.2 fL (80.0-100.0); Macrocytosis Moderate; Mean Platelet Volume 8.6; Platelet Count 151 k/uL (150-450); Poikilocytosis Moderate; RBC 2.18 m/uL (3.80-5.40); RDW 17.7 % (11.5-15.5); WBC 8.9 k/uL (3.8-10.6)
[2020-05-26 13:41] LABS: ABG Base Excess -2.7 mmol/L; ABG HCO3 22 mmol/L (21-25); ABG PCO2 37 mmHg (35-45); ABG PH 7.38 (7.35-7.45); ABG PO2 219 mmHg (83-108)
[2020-05-26 13:49] LABS: Calcium 7.4 mg/dL (8.4-10.2); Potassium 4.3 mmol/L (3.5-5.1)
[2020-05-26 15:22] LABS: Glucose,Whole Blood 104 mg/dL (75-99)
--- NOTE | 2020-05-26 15:36 | P.OP ---
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 EBL: [200 mL] IV fluids: [see records] Urine output: [not measured] Drains: [none] Complications: [none immediately apparent] Condition: [stable to recovery] Operative indication and findings: [the patient is a 69-year-old female with a complex past medical history of end-stage renal disease requiring a left upper extremity AV graft with multiple interventions. She has been on Ellik was for anticoagulation and recently fell. With this, she obtained a right lower ext remity hematoma which was initially I&D at the bedside a few days previously. She continued to have necrosis of the skin therefore is recommended to undergooperative debridement. She also at the same time subsequently had an occlusion of herleft upper extremity graft that had previously been functioning well. Along with this she had pain in her left upper extremity at the forearm. An ultrasound was performed confirming occlusion of the graft as well as an abnormal mass in the forearm a CT angiogram was performed revealing a 3.3 and1.4 cm radial artery aneurysm just distally to the bifurcation of the brachial artery. Given the size and subsequent pain she was having was recommended we focused our attention on this and go forward with revascularization and repair of the aneurysm. A CryoVein was obtained. The patient seemingly understood all risks and benefits including but not limited to bleeding, infection, loss of limb or life. She seemingly understands and is willing to proceed as such. Procedure in detail the patient was taken to the operative suite and placed in supine position. The left upper extremity was prepped and draped in usual sterile fashion. A preprocedure timeout was performed, all parties were in agreement. The ultrasound was utilized and the brachial artery was identified at the level of the antecubital fossa it was marked and traversed down revealing the larger and smaller aneurysm as well as the distal normal radial artery. The skin was marked. An incision was made through the skin and carried down through the subcutaneous tissue electrocautery. Care and attention was made traversing through the fascia. This was done first at the distal portion of the radial artery was identified. With the radial artery was identified the bundle was encircled with a vessel loop. Tedious dissection was performed back in the proximal direction. A LigaSuredevice was utilized and the surrounding tissues were divided. The larger aneurysm itself seems to be very closely adherent to the flexor carpi ulnaris muscle and traversed down to the radius. Tedious soft tissue dissection was performed suturing from the proximal and distal portions. The brachial artery was then identified and encircled circumferentially. It was dissected free to the level of the bifurcation of the radial and ulnar arteries. The small branch of the radial artery that was directly connected to the aneurysm was identified and encircled. The patient was heparinized and flow was occluded through the aneurysm itself. Further dissection was carried out and it was decided the best mode to transect the distal portion the radial artery. This was accomplished in theartery was dissected free from its surrounding tissues. Proximally until portion where there was nofurtherobvious planes of dissection.the area of the radial artery feeding the aneurysm was encircled proximally and distally and this left a decent sized proximal anastomotic point therefore an arteriotomy was performed and 7-0 Prolene was utilized to create an anastomosis with a CryoVein. There was good flow pulsatile through the vein. This was then anastomosed to the distal portion of the artery with 7-0 Prolene. There was good flow through the graft with palpable proximal and distal pulses. A palpable pulse at the radius and ulna at the wrist. The area was copiously irrigated. The remainder of the tissue adherent to the aneurysm was transected with the LigaSure. The distal remainder of the artery was ligated with 3-0 silk ties distally to the proximal anastomosis. Hemostasis of the subcutaneous tissues was achieved with electrocautery and Surgicel. The anastomoses appeared intact without any evidence of bleeding. The fascial plane andsubcutaneous tissuereapproximated with interrupted sutures of 3-0 Vicryl. The skin was reapproximated with vertical mattress sutures of 3-0 nylon. A dressing was placed The patient maintainedsignals in the radial ulnar arteries at the conclusion. Attention was then turned towards the right lower extremity. The leg was prepped and draped in usual sterile fashion and are-agreement of the timeout was performed. Scissors and skin knife for utilized tocut the devitalized portions of skin. Curet was used in the subcutaneous tissues and proximally at the level of the muscle todebride the devitalized skin and hematoma. The area was then irrigated. A dressing was placed with Adaptic Kerlix and gauze. the patient was allowed awaken from the complex procedures and transferred to the recovery in stable condition having tolerated the procedure well..
[2020-05-26] MEDS: METHADONE 10 MG TAB PO SCH (16:19)
[2020-05-26] MEDS: PANTOPRAZOLE 40 MG TABLET PO SCH (16:19)
[2020-05-26] MEDS: FOLIC ACID-VIT B COMPLEX-VIT C 1 CAP PO SCH (16:19)
[2020-05-26 17:01] LABS: Glucose,Whole Blood 116 mg/dL (75-99)
[2020-05-26] MEDS: amLODIPine 5 MG TAB PO PRN (19:20)
--- NOTE | 2020-05-26 19:27 | P.PN ---
Subjective Progress Note Date: 05/26/20 Principal diagnosis: right leg injury Patient is a 69 yo CF with a hx of ESRD on HD, DM 2 insulin requiring, atrial fibrillation on anticoagulation with Eliquis, and hypothyroidism who presented to the ER with complaints of injury to her right leg that occurred on the day of admission while transferring from toilet seat to wheelchair. On arrival to the ER she underwent an extensive evaluation. Her vital signs are found within normal limits. Initial laboratory analysis showed a hemoglobin of 7.7 down from her normal of 10.4, platelet. 13.9, INR 1.2, potassium 6.9, sodium 135, BUN 74, creatinine 7.58, and the remainder of her labs were unremarkable. She underwent a CT of the right lower extremity which showed a large subcutaneous mass consistent with acute hematoma, minimal soft tissue air suggestive of laceration. There was no fracture or intramuscular hematoma seen. She was admitted secondary to right leg hematoma and acute blood loss anemia. Surgery was consulted. Nephrology was consulted as the patient had missed her dialysis. Her blood count did fall to a hemoglobin of 6 and she required 2 units of packed red blood cells. She was also given an infusion of DDAVP. She underwent dialysis on 05/21. She was seen by vascular surgery on 04/21 she underwent I&D of right lower extremity hematoma with removal of her right tunneled hemodialysis catheter. She continued to have severe right leg pain. She continued has some pain during her hospital stay. On the morning of 05/23 she was noted to have swelling in her left arm by the side of her fistula. She underwent an ultrasound of the left upper extremity fistula which confirmed thrombosis. Left forearm also showing an area of dilatation. She was seen by vascular surgery and her graft was noted to be thrombosed. She underwent placement of a tunneled dialysis catheter on 05/24. Plans were made for radial artery bypass on 05/26/2020 so that we could obtain vein for radial artery bypass. He was noted to again have low hemoglobin on 05/25 and 1 additional unit of packed red blood cells was ordered. She underwent a CTA of the left upper extremity which confirmed a large fusiform renal artery aneurysm. Due to this graft salvage will not be attempted. She underwent left upper extremity radial artery aneurysm repair on 05/26/20 Patient seen and examined at bedside. She is not having any pain in her arm currently. She denies any nausea or shortness of breath. Still feeling fatigu ed from surgery. General: non toxic, no distress, appears older than stated age Derm: warm, dry Head: atraumatic, normocephalic, symmetric Eyes: EOMI, no lid lag, anicteric sclera Mouth: no lip lesion, mucus membranes moist Cardiovascular: S1S2 reg, no murmur, positive posterior tibial pulse bilateral, Lungs: CTA bilateral, no rhonchi, no rales , no accessory muscle use Abdominal: soft, nontender to palpation, no guarding, no appreciable organomegaly Ext: no gross muscle atrophy, trace edema, no contractures Neuro: CN II-XI grossly intact, no focal neuro deficits Psych: Alert, oriented, appropriate affect Acute blood loss anemia - s/p 3 units of pRBC - Follow CBC Right leg hematoma due to injury - s/p I and D 05/21 - Vascular surgery recs - Eliquis on hold - Completed Cefdinir Clotted AV fistula -Permacath was placed on 05/24. - no plans for repair DM 2 - Was having hypoglycemia and levemir on hold - Follow BS End-stage renal disease on dialysis Friday, , Friday - Nephrology recommendations - On HD per nephrology Chronic atrial fibrillation - On eliquis Hyperkalemia, resolved Chronic: HTN HLD Hypothyroidism DVT prophylaxis: SCD due to bleeding Discussed with: Patient, nursing Anticipated discharge: 2-[address]: home with home health A total of 65 minutes was spent on the care of this complex patient more than 50% of the time was spent in counseling and care coordination. Objective - Vital Signs Vital signs: Vital Signs Temp 97.9 F 05/26/20 16:29 Pulse 80 05/26/20 17:39 Resp 16 05/26/20 18:46 BP 165/89 05/26/20 18:46 Pulse Ox 95 05/26/20 18:46 Intake & Output 05/26/20 05/26/20 05/27/20 06:59 18:59 06:59 Intake Total 785 1312 Output Total 200 Balance 785 1112 Weight 70 kg Intake: IV 1002 Oral 475 Blood Product 310 310 Rc As-1 Unit 310 [id number] Rc As-1 Unit 310 [id number] Output: Estimated Blood Loss 200 Other: Voiding Method Bedside Commode # Voids 1 - Labs CBC & Chem 7: 05/26/20 14:00 05/26/20 14:00 Labs: Abnormal Lab Results - Last 24 Hours (Table) 05/25/20 05/25/20 05/26/20 Range/Units 09:15 20:08 00:29 WBC 11.1 H (3.8-10.6) k/uL RBC 2.63 L (3.80-5.40) m/uL Hgb 8.6 L (11.4-16.0) gm/dL Hct 26.5 L (34.0-46.0) % MCV 100.7 H (80.0-100.0) fL RDW 17.4 H (11.5-15.5) % Plt Count 140 L (150-450) k/uL Neutrophils # 8.2 H (1.3-7.7) k/uL ABG pO2 (83-108) mmHg ABG O2 Saturation (94-97) % Sodium (137-145) mmol/L Chloride (98-107) mmol/L BUN (7-17) mg/dL Creatinine (0.52-1.04) mg/dL Glucose (74-99) mg/dL POC Glucose (mg/dL) 203 H (75-99) mg/dL Calcium (8.4-10.2) mg/dL Crossmatch See Detail 05/26/20 05/26/20 05/26/20 Range/Units 07:16 07:16 09:45 WBC (3.8-10.6) k/uL RBC 2.74 L (3.80-5.40) m/uL Hgb 9.1 L (11.4-16.0) gm/dL Hct 28.2 L (34.0-46.0) % MCV 103.1 H (80.0-100.0) fL RDW 17.2 H (11.5-15.5) % Plt Count (150-450) k/uL Neutrophils # (1.3-7.7) k/uL ABG pO2 (83-108) mmHg ABG O2 Saturation (94-97) % Sodium 136 L (137-145) mmol/L Chloride (98-107) mmol/L BUN 30 H (7-17) mg/dL Creatinine 4.38 H (0.52-1.04) mg/dL Glucose 71 L (74-99) mg/dL POC Glucose (mg/dL) 70 L (75-99) mg/dL Calcium 8.0 L (8.4-10.2) mg/dL Crossmatch 05/26/20 05/26/20 05/26/20 Range/Units 10:50 11:59 13:39 WBC (3.8-10.6) k/uL RBC (3.80-5.40) m/uL Hgb (11.4-16.0) gm/dL Hct (34.0-46.0) % MCV (80.0-100.0) fL RDW (11.5-15.5) % Plt Count (150-450) k/uL Neutrophils # (1.3-7.7) k/uL ABG pO2 219 H (83-108) mmHg ABG O2 Saturation 100.0 H (94-97) % Sodium (137-145) mmol/L Chloride (98-107) mmol/L BUN (7-17) mg/dL Creatinine (0.52-1.04) mg/dL Glucose (74-99) mg/dL POC Glucose (mg/dL) 66 L 73 L (75-99) mg/dL Calcium (8.4-10.2) mg/dL Crossmatch 05/26/20 05/26/20 05/26/20 Range/Units 14:00 14:00 15:19 WBC (3.8-10.6) k/uL RBC 2.18 L (3.80-5.40) m/uL Hgb 7.0 L D (11.4-16.0) gm/dL Hct 22.2 L (34.0-46.0) % MCV 102.2 H (80.0-100.0) fL RDW 17.7 H (11.5-15.5) % Plt Count (150-450) k/uL Neutrophils # (1.3-7.7) k/uL ABG pO2 (83-108) mmHg ABG O2 Saturation (94-97) % Sodium 136 L (137-145) mmol/L Chloride 110 H (98-107) mmol/L BUN 28 H (7-17) mg/dL Creatinine 4.60 H (0.52-1.04) mg/dL Glucose 72 L (74-99) mg/dL POC Glucose (mg/dL) 104 H (75-99) mg/dL Calcium 7.4 L (8.4-10.2) mg/dL Crossmatch 05/26/20 Range/Units 16:49 WBC (3.8-10.6) k/uL RBC (3.80-5.40) m/uL Hgb (11.4-16.0) gm/dL Hct (34.0-46.0) % MCV (80.0-100.0) fL RDW (11.5-15.5) % Plt Count (150-450) k/uL Neutrophils # (1.3-7.7) k/uL ABG pO2 (83-108) mmHg ABG O2 Saturation (94-97) % Sodium (137-145) mmol/L Chloride (98-107) mmol/L BUN (7-17) mg/dL Creatinine (0.52-1.04) mg/dL Glucose (74-99) mg/dL POC Glucose (mg/dL) 116 H (75-99) mg/dL Calcium (8.4-10.2) mg/dL Crossmatch
[2020-05-26] MEDS ORDERED: METHADONE 10 MG TAB PO ONE (19:30)
[2020-05-26] MEDS: ATORVASTATIN 40 MG TAB PO SCH (19:50)
[2020-05-26 20:14] LABS: Glucose,Whole Blood 94 mg/dL (75-99)
[2020-05-27] MEDS: MORPHINE SULFATE 4 MG/ML SYRINGE IV PRN ×2 (00:21→04:21)
[2020-05-27] MEDS: ACETAMINOPHEN TAB 325 MG TAB PO PRN ×2 (04:25→15:01)
[2020-05-27 06:14] LABS: Glucose,Whole Blood 101 mg/dL (75-99)
[2020-05-27] MEDS: INSULIN ASPART (NovoLOG) 100 UNIT/ML VIAL SQ SCH ×4 (06:14→20:54)
[2020-05-27] MEDS: CALCIUM ACETATE 667 MG TAB PO SCH ×3 (06:25→17:00)
[2020-05-27] MEDS: LEVOTHYROXINE 75 MCG TAB PO SCH (06:26)
[2020-05-27] MEDS: PANTOPRAZOLE 40 MG TABLET PO SCH (06:26)
[2020-05-27 07:14] LABS: RBC 2.58 m/uL (3.80-5.40)
[2020-05-27 07:15] LABS: Anisocytosis Slight; Basophils % (A) 0 %; Eosinophils # (A) 0.1 k/uL (0-0.7); Eosinophils % (A) 1 %; HCT 25.9 % (34.0-46.0); Hypochromasia Marked; Lymphocytes # (A) 0.9 k/uL (1.0-4.8); Lymphocytes % (A) 9 %; MCHC 32.9 g/dL (31.0-37.0); MCV 100.5 fL (80.0-100.0); Macrocytosis Moderate; Mean Platelet Volume 8.1; Monocytes # (A) 0.7 k/uL (0-1.0); Monocytes % (A) 7 %; Neutrophils # (A) 8.1 k/uL (1.3-7.7); Neutrophils % (A) 82 %; Platelet Count 146 k/uL (150-450); Poikilocytosis Moderate; RDW 18.1 % (11.5-15.5)
[2020-05-27 07:24] LABS: Calcium 7.9 mg/dL (8.4-10.2); Potassium 5.3 mmol/L (3.5-5.1)
[2020-05-27 07:26] LABS: HGB 8.5 gm/dL (11.4-16.0)
[2020-05-27] MEDS ORDERED: carvediloL 3.125 MG TAB PO PRN (09:00)
[2020-05-27] MEDS: METHADONE 10 MG TAB PO SCH (09:46)
[2020-05-27] MEDS: FOLIC ACID-VIT B COMPLEX-VIT C 1 CAP PO SCH (09:46)
[2020-05-27] MEDS: HYDROmorphone 1 MG/ML 1 ML SYRINGE IVP PRN ×3 (09:47→18:44)
[2020-05-27] MEDS: SODIUM CHLORIDE 0.9% 1,000 ML IV SCH (10:02)
--- NOTE | 2020-05-27 10:26 | P.PN ---
Subjective Progress Note Date: 05/27/20 Patient seen and examined. No issues. Complains of pain all over. States she does not feel like she has the same pain in her left arm as previous to surgery. Objective - Vital Signs Vital signs: Vital Signs Temp 97.6 F 05/27/20 03:46 Pulse 81 05/27/20 03:46 Resp 18 05/27/20 03:46 BP 172/77 05/27/20 03:46 Pulse Ox 96 05/27/20 03:46 Intake & Output 05/26/20 05/27/20 05/27/20 18:59 06:59 18:59 Intake Total 1312 475 Output Total 200 500 Balance 1112 -25 Weight 73.5 kg Intake: IV 1002 Oral 475 Blood Product 310 Rc As-1 Unit 310 [id number] Output: Urine 500 Straight 500 Estimated Blood Loss 200 Other: Voiding Method Bedside Commode # Voids 1 - Exam Gen. is a pleasant and cooperative chronically ill female in no acute distress. HEENT is normocephalic, atraumatic, extraocular motion intact. Heart is irregular in rate and rhythm. Lungs are clear. Abdomen is soft. Right upper extremities no clubbing, cyanosis or edema. Left upper extremity AV graft non-pulsatile. Thrombosed. Left upper extremity dressing clean, dry, intact. Palpable ulnar pulse. Weakly palpable radial pulse as previous. Right lower extremity dressing clean, dry, intact. - Labs CBC & Chem 7: 05/27/20 06:51 05/27/20 06:51 Labs: Abnormal Lab Results - Last 24 Hours (Table) 05/25/20 05/26/20 05/26/20 Range/Units 09:15 10:50 11:59 RBC (3.80-5.40) m/uL Hgb (11.4-16.0) gm/dL Hct (34.0-46.0) % MCV (80.0-100.0) fL RDW (11.5-15.5) % Plt Count (150-450) k/uL Neutrophils # (1.3-7.7) k/uL Lymphocytes # (1.0-4.8) k/uL ABG pO2 (83-108) mmHg ABG O2 Saturation (94-97) % Sodium (137-145) mmol/L Potassium (3.5-5.1) mmol/L Chloride (98-107) mmol/L Carbon Dioxide (22-30) mmol/L BUN (7-17) mg/dL Creatinine (0.52-1.04) mg/dL Glucose (74-99) mg/dL POC Glucose (mg/dL) 66 L 73 L (75-99) mg/dL Calcium (8.4-10.2) mg/dL Crossmatch See Detail 05/26/20 05/26/20 05/26/20 Range/Units 13:39 14:00 14:00 RBC 2.18 L (3.80-5.40) m/uL Hgb 7.0 L D (11.4-16.0) gm/dL Hct 22.2 L (34.0-46.0) % MCV 102.2 H (80.0-100.0) fL RDW 17.7 H (11.5-15.5) % Plt Count (150-450) k/uL Neutrophils # (1.3-7.7) k/uL Lymphocytes # (1.0-4.8) k/uL ABG pO2 219 H (83-108) mmHg ABG O2 Saturation 100.0 H (94-97) % Sodium 136 L (137-145) mmol/L Potassium (3.5-5.1) mmol/L Chloride 110 H (98-107) mmol/L Carbon Dioxide (22-30) mmol/L BUN 28 H (7-17) mg/dL Creatinine 4.60 H (0.52-1.04) mg/dL Glucose 72 L (74-99) mg/dL POC Glucose (mg/dL) (75-99) mg/dL Calcium 7.4 L (8.4-10.2) mg/dL Crossmatch 05/26/20 05/26/20 05/27/20 Range/Units 15:19 16:49 06:13 RBC (3.80-5.40) m/uL Hgb (11.4-16.0) gm/dL Hct (34.0-46.0) % MCV (80.0-100.0) fL RDW (11.5-15.5) % Plt Count (150-450) k/uL Neutrophils # (1.3-7.7) k/uL Lymphocytes # (1.0-4.8) k/uL ABG pO2 (83-108) mmHg ABG O2 Saturation (94-97) % Sodium (137-145) mmol/L Potassium (3.5-5.1) mmol/L Chloride (98-107) mmol/L Carbon Dioxide (22-30) mmol/L BUN (7-17) mg/dL Creatinine (0.52-1.04) mg/dL Glucose (74-99) mg/dL POC Glucose (mg/dL) 104 H 116 H 101 H (75-99) mg/dL Calcium (8.4-10.2) mg/dL Crossmatch 05/27/20 05/27/20 Range/Units 06:51 06:51 RBC 2.58 L (3.80-5.40) m/uL Hgb 8.5 L D (11.4-16.0) gm/dL Hct 25.9 L (34.0-46.0) % MCV 100.5 H (80.0-100.0) fL RDW 18.1 H (11.5-15.5) % Plt Count 146 L (150-450) k/uL Neutrophils # 8.1 H (1.3-7.7) k/uL Lymphocytes # 0.9 L (1.0-4.8) k/uL ABG pO2 (83-108) mmHg ABG O2 Saturation (94-97) % Sodium 136 L (137-145) mmol/L Potassium 5.3 H (3.5-5.1) mmol/L Chloride 108 H (98-107) mmol/L Carbon Dioxide 19 L (22-30) mmol/L BUN 35 H (7-17) mg/dL Creatinine 5.14 H (0.52-1.04) mg/dL Glucose (74-99) mg/dL POC Glucose (mg/dL) (75-99) mg/dL Calcium 7.9 L (8.4-10.2) mg/dL Crossmatch Assessment and Plan Assessment: Postoperative day #1 from left upper extremity radial artery bypass, right lower extremity wound debridement End-stage renal disease on hemodialysis Thrombosed left upper extremity AV graft Left forearm pulsatile mass - large radial artery aneurysm Right lower leg hematoma secondary to fall, status post evacuation, necrotic tissue Atrial fibrillation. Exam blood thinners Hypertension Diabetes Chronic methadone Plan: Overall the patient appears to be doing well. Her labs are stable. We will plan to restart her eliquis tomorrow. Continue dialysis via tunnel catheter. Daily dressing changes.
--- NOTE | 2020-05-27 10:40 | P.PN ---
Subjective Progress Note Date: 05/27/20 Principal diagnosis: This is a 69-year-old female known to us with ESRD on dialysis Friday She was admitted because of injury during transfer from a commode to a wheelchair. She was found to have a hematoma in the right leg. Hemoglobin was 6 on admission potassium was 6.9 She is known with atrial fibrillation, remote left [id number] and dictation diabetes. In the hospital on 05/26/2020, she has undergone repair of the aneurysm of her graft, excisional debridement right lower extremity. Currently she is on dialysis. She denies any fever chills cough but complains of aches and pains. No chest pain no shortness of breath. No nausea vomiting diarrhea. Objective - Vital Signs Vital signs: Vital Signs Temp 97.6 F 05/27/20 03:46 Pulse 81 05/27/20 03:46 Resp 18 05/27/20 03:46 BP 172/77 05/27/20 03:46 Pulse Ox 96 05/27/20 03:46 Intake & Output 05/26/20 05/27/20 05/27/20 18:59 06:59 18:59 Intake Total 1312 475 Output Total 200 500 Balance 1112 -25 Weight 73.5 kg Intake: IV 1002 Oral 475 Blood Product 310 Rc As-1 Unit 310 [id number] Output: Urine 500 Straight 500 Estimated Blood Loss 200 Other: Voiding Method Bedside Commode # Voids 1 Exam she is awake alert oriented HEENT exam no JVP neck is supple no facial asymmetry Lungs are significant for bilateral coarse crackle at bases cleared mostly by cough. 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 Her left on his bandaged. Neurologically awake alert oriented 3 - Labs CBC & Chem 7: 05/27/20 06:51 05/27/20 06:51 Labs: Abnormal Lab Results - Last 24 Hours (Table) 05/25/20 05/26/20 05/26/20 Range/Units 09:15 10:50 11:59 RBC (3.80-5.40) m/uL Hgb (11.4-16.0) gm/dL Hct (34.0-46.0) % MCV (80.0-100.0) fL RDW (11.5-15.5) % Plt Count (150-450) k/uL Neutrophils # (1.3-7.7) k/uL Lymphocytes # (1.0-4.8) k/uL ABG pO2 (83-108) mmHg ABG O2 Saturation (94-97) % Sodium (137-145) mmol/L Potassium (3.5-5.1) mmol/L Chloride (98-107) mmol/L Carbon Dioxide (22-30) mmol/L BUN (7-17) mg/dL Creatinine (0.52-1.04) mg/dL Glucose (74-99) mg/dL POC Glucose (mg/dL) 66 L 73 L (75-99) mg/dL Calcium (8.4-10.2) mg/dL Crossmatch See Detail 05/26/20 05/26/20 05/26/20 Range/Units 13:39 14:00 14:00 RBC 2.18 L (3.80-5.40) m/uL Hgb 7.0 L D (11.4-16.0) gm/dL Hct 22.2 L (34.0-46.0) % MCV 102.2 H (80.0-100.0) fL RDW 17.7 H (11.5-15.5) % Plt Count (150-450) k/uL Neutrophils # (1.3-7.7) k/uL Lymphocytes # (1.0-4.8) k/uL ABG pO2 219 H (83-108) mmHg ABG O2 Saturation 100.0 H (94-97) % Sodium 136 L (137-145) mmol/L Potassium (3.5-5.1) mmol/L Chloride 110 H (98-107) mmol/L Carbon Dioxide (22-30) mmol/L BUN 28 H (7-17) mg/dL Creatinine 4.60 H (0.52-1.04) mg/dL Glucose 72 L (74-99) mg/dL POC Glucose (mg/dL) (75-99) mg/dL Calcium 7.4 L (8.4-10.2) mg/dL Crossmatch 05/26/20 05/26/20 05/27/20 Range/Units 15:19 16:49 06:13 RBC (3.80-5.40) m/uL Hgb (11.4-16.0) gm/dL Hct (34.0-46.0) % MCV (80.0-100.0) fL RDW (11.5-15.5) % Plt Count (150-450) k/uL Neutrophils # (1.3-7.7) k/uL Lymphocytes # (1.0-4.8) k/uL ABG pO2 (83-108) mmHg ABG O2 Saturation (94-97) % Sodium (137-145) mmol/L Potassium (3.5-5.1) mmol/L Chloride (98-107) mmol/L Carbon Dioxide (22-30) mmol/L BUN (7-17) mg/dL Creatinine (0.52-1.04) mg/dL Glucose (74-99) mg/dL POC Glucose (mg/dL) 104 H 116 H 101 H (75-99) mg/dL Calcium (8.4-10.2) mg/dL Crossmatch 05/27/20 05/27/20 Range/Units 06:51 06:51 RBC 2.58 L (3.80-5.40) m/uL Hgb 8.5 L D (11.4-16.0) gm/dL Hct 25.9 L (34.0-46.0) % MCV 100.5 H (80.0-100.0) fL RDW 18.1 H (11.5-15.5) % Plt Count 146 L (150-450) k/uL Neutrophils # 8.1 H (1.3-7.7) k/uL Lymphocytes # 0.9 L (1.0-4.8) k/uL ABG pO2 (83-108) mmHg ABG O2 Saturation (94-97) % Sodium 136 L (137-145) mmol/L Potassium 5.3 H (3.5-5.1) mmol/L Chloride 108 H (98-107) mmol/L Carbon Dioxide 19 L (22-30) mmol/L BUN 35 H (7-17) mg/dL Creatinine 5.14 H (0.52-1.04) mg/dL Glucose (74-99) mg/dL POC Glucose (mg/dL) (75-99) mg/dL Calcium 7.9 L (8.4-10.2) mg/dL Crossmatch Assessment and Plan Assessment: Impression 1. ESRD on dialysis Friday with a permacath on the left 2. History of injury from with hematoma right leg status post debridement, dated 05/26/2020 3. Clotted AV graft status post repair left forearm, dated 05/26/2020. 4. Anemia from bleeding internally, hemoglobin is stable, 8.5 5. Minimal degree of non-gap acidosis with bicarb is 19 Condition 1. No changes in medication. 2. Expect the bicarb improved 3. Will watch her hemoglobin
--- NOTE | 2020-05-27 11:03 | P.PN ---
Subjective Progress Note Date: 05/27/20 Pt continues to report overall pain, especially in left arm and right leg. Objective - Vital Signs Vital signs: Vital Signs Temp 97.6 F 05/27/20 03:46 Pulse 81 05/27/20 03:46 Resp 18 05/27/20 03:46 BP 172/77 05/27/20 03:46 Pulse Ox 96 05/27/20 03:46 Intake & Output 05/26/20 05/27/20 05/27/20 18:59 06:59 18:59 Intake Total 1312 475 Output Total 200 500 Balance 1112 -25 Weight 73.5 kg Intake: IV 1002 Oral 475 Blood Product 310 Rc As-1 Unit 310 [id number] Output: Urine 500 Straight 500 Estimated Blood Loss 200 Other: Voiding Method Bedside Commode # Voids 1 - Exam Gen: awake, alert HEENT: normocephalic, atraumatic, good hearing acuity, moist mucous membranes Resp: good air exchange, breathing comfortably with no accessory muscle use CVS: good distal perfusion x 4, GI: soft, NTTP, ND : no SPT, no CVAT, mayorga catheter not present MSK: no pitting edema, no clubbing, Neuro: non-focal, moving all extremities Psych: cooperative, euthymic mood - Labs CBC & Chem 7: 05/27/20 06:51 05/27/20 06:51 Labs: Abnormal Lab Results - Last 24 Hours (Table) 05/25/20 05/26/20 05/26/20 Range/Units 09:15 11:59 13:39 RBC (3.80-5.40) m/uL Hgb (11.4-16.0) gm/dL Hct (34.0-46.0) % MCV (80.0-100.0) fL RDW (11.5-15.5) % Plt Count (150-450) k/uL Neutrophils # (1.3-7.7) k/uL Lymphocytes # (1.0-4.8) k/uL ABG pO2 219 H (83-108) mmHg ABG O2 Saturation 100.0 H (94-97) % Sodium (137-145) mmol/L Potassium (3.5-5.1) mmol/L Chloride (98-107) mmol/L Carbon Dioxide (22-30) mmol/L BUN (7-17) mg/dL Creatinine (0.52-1.04) mg/dL Glucose (74-99) mg/dL POC Glucose (mg/dL) 73 L (75-99) mg/dL Calcium (8.4-10.2) mg/dL Crossmatch See Detail 05/26/20 05/26/20 05/26/20 Range/Units 14:00 14:00 15:19 RBC 2.18 L (3.80-5.40) m/uL Hgb 7.0 L D (11.4-16.0) gm/dL Hct 22.2 L (34.0-46.0) % MCV 102.2 H (80.0-100.0) fL RDW 17.7 H (11.5-15.5) % Plt Count (150-450) k/uL Neutrophils # (1.3-7.7) k/uL Lymphocytes # (1.0-4.8) k/uL ABG pO2 (83-108) mmHg ABG O2 Saturation (94-97) % Sodium 136 L (137-145) mmol/L Potassium (3.5-5.1) mmol/L Chloride 110 H (98-107) mmol/L Carbon Dioxide (22-30) mmol/L BUN 28 H (7-17) mg/dL Creatinine 4.60 H (0.52-1.04) mg/dL Glucose 72 L (74-99) mg/dL POC Glucose (mg/dL) 104 H (75-99) mg/dL Calcium 7.4 L (8.4-10.2) mg/dL Crossmatch 05/26/20 05/27/20 05/27/20 Range/Units 16:49 06:13 06:51 RBC 2.58 L (3.80-5.40) m/uL Hgb 8.5 L D (11.4-16.0) gm/dL Hct 25.9 L (34.0-46.0) % MCV 100.5 H (80.0-100.0) fL RDW 18.1 H (11.5-15.5) % Plt Count 146 L (150-450) k/uL Neutrophils # 8.1 H (1.3-7.7) k/uL Lymphocytes # 0.9 L (1.0-4.8) k/uL ABG pO2 (83-108) mmHg ABG O2 Saturation (94-97) % Sodium (137-145) mmol/L Potassium (3.5-5.1) mmol/L Chloride (98-107) mmol/L Carbon Dioxide (22-30) mmol/L BUN (7-17) mg/dL Creatinine (0.52-1.04) mg/dL Glucose (74-99) mg/dL POC Glucose (mg/dL) 116 H 101 H (75-99) mg/dL Calcium (8.4-10.2) mg/dL Crossmatch 05/27/20 Range/Units 06:51 RBC (3.80-5.40) m/uL Hgb (11.4-16.0) gm/dL Hct (34.0-46.0) % MCV (80.0-100.0) fL RDW (11.5-15.5) % Plt Count (150-450) k/uL Neutrophils # (1.3-7.7) k/uL Lymphocytes # (1.0-4.8) k/uL ABG pO2 (83-108) mmHg ABG O2 Saturation (94-97) % Sodium 136 L (137-145) mmol/L Potassium 5.3 H (3.5-5.1) mmol/L Chloride 108 H (98-107) mmol/L Carbon Dioxide 19 L (22-30) mmol/L BUN 35 H (7-17) mg/dL Creatinine 5.14 H (0.52-1.04) mg/dL Glucose (74-99) mg/dL POC Glucose (mg/dL) (75-99) mg/dL Calcium 7.9 L (8.4-10.2) mg/dL Crossmatch Assessment and Plan Assessment: RLE hematoma -S/p rupture -Vascular surgery recommendations appreciated -Continue to hold Eliquis at this time -Continue with oral antibiotics at this time 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 Acute blood loss anemia, secondary to right lower extremity hematoma -Continue to monitor hemoglobin every 12 hourly with transfusion for less than 7 hemoglobin -Status post 2 units PRBCs ESRD on hemodialysis via newly placed LIJ permacath -Continue hemodialysis A. fib -Continue to hold Eliquis for now in setting of acute blood loss anemia DM -Discontinue Levemir in setting of low normal blood glucose levels Hypertension, HLD -C/w home meds Discussed with: Patient Anticipated discharge date: in am Anticipated discharge place: Home A total of 35 minutes was spent on the care of this complex patient more than 50% of the time was spent in counseling and care coordination.
[2020-05-27 11:40] LABS: Glucose,Whole Blood 86 mg/dL (75-99)
[2020-05-27 16:46] LABS: Glucose,Whole Blood 79 mg/dL (75-99)
[2020-05-27] MEDS ORDERED: METHADONE 10 MG TAB PO ONE (19:00)
[2020-05-27 20:21] LABS: Glucose,Whole Blood 80 mg/dL (75-99)
[2020-05-27] MEDS: ALPRAZolam 1 MG TAB PO PRN (20:54)
[2020-05-27] MEDS: ATORVASTATIN 40 MG TAB PO SCH (20:54)
[2020-05-27] MEDS: amLODIPine 5 MG TAB PO PRN (20:54)
[2020-05-28] MEDS: ACETAMINOPHEN TAB 325 MG TAB PO PRN ×2 (00:11→17:16)
[2020-05-28] MEDS: HYDROmorphone 1 MG/ML 1 ML SYRINGE IVP PRN ×6 (00:11→23:16)
[2020-05-28] MEDS: INSULIN ASPART (NovoLOG) 100 UNIT/ML VIAL SQ SCH ×4 (05:55→21:03)
[2020-05-28 05:56] LABS: Glucose,Whole Blood 122 mg/dL (75-99)
[2020-05-28] MEDS: LEVOTHYROXINE 75 MCG TAB PO SCH (06:18)
[2020-05-28] MEDS: CALCIUM ACETATE 667 MG TAB PO SCH ×3 (06:18→17:24)
[2020-05-28] MEDS: SODIUM CHLORIDE 0.9% 1,000 ML IV SCH ×2 (06:22→21:37)
[2020-05-28] MEDS: METHADONE 10 MG TAB PO SCH (09:38)
[2020-05-28] MEDS: PANTOPRAZOLE 40 MG TABLET PO SCH (09:38)
[2020-05-28] MEDS: FOLIC ACID-VIT B COMPLEX-VIT C 1 CAP PO SCH (09:39)
--- NOTE | 2020-05-28 10:38 | P.PN ---
Subjective Progress Note Date: 05/28/20 Principal diagnosis: Leg hematoma Patient was asking for more pain medications this morning. She continues to have pain in her left arm and right leg at the surgical sites. She has not had a bowel movement since she came into the hospital. No other overnight events. Objective - Vital Signs Vital signs: Vital Signs Temp 97.8 F 05/27/20 20:00 Pulse 72 05/27/20 20:00 Resp 20 05/27/20 20:00 BP 152/63 05/27/20 20:00 Pulse Ox 93 L 05/27/20 20:00 Intake & Output 05/27/20 05/28/20 05/28/20 18:59 06:59 18:59 Intake Total 440 240 Output Total 2300 0 Balance -1860 0 240 Weight 70.5 kg Intake: Oral 440 240 Output: Stool 0 Hemodialysis 2300 Other: Voiding Method Bedside Commode # Voids 0 # Bowel Movements 0 - Exam Gen. is a pleasant and cooperative chronically ill female in no acute distress. HEENT is normocephalic, atraumatic, extraocular motion intact. Heart is irregular in rate and rhythm. Lungs are clear. Abdomen is soft. Nontender and nondistended. Right upper extremities no clubbing, cyanosis or edema. Left upper extremity AV graft non-pulsatile. Surgical dressings applied. Right lower extremity surgical dressings applied. No purulent drainage. 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 -S/P placement of tunneled dialysis catheter. -Radial artery bypass done by vascular on 05/26/20 Chronic pain with chronic opioid use/constipation Would not escalate narcotics any further Add laxatives for constipation Acute blood loss anemia, secondary to right lower extremity hematoma -Continue to monitor hemoglobin with transfusion prn -Status post PRBCs transfusion ESRD on hemodialysis -Continue hemodialysis through left permacath. -Nephrology following. A. fib -Continue to hold Eliquis for now in setting of acute blood loss anemia DM -Discontinue Levemir in setting of low normal blood glucose levels -Glucose currently ok only on SSI Hypertension, HLD -C/w home meds Discussed with: Patient Anticipated discharge date: 1-[address]: Home A total of 35 minutes was spent on the care of this complex patient more than 50% of the time was spent in counseling and care coordination.
--- NOTE | 2020-05-28 11:05 | P.PN ---
Subjective Progress Note Date: 05/28/20 Principal diagnosis: This is a 69-year-old female known to us with ESRD on dialysis Friday She was admitted because of injury during transfer from a commode to a wheelchair. She was found to have a hematoma in the right leg. Hemoglobin was 6 on admission potassium was 6.9 She is known with atrial fibrillation, remote left [id number] amputation and diabetes. In the hospital on 05/26/2020, she has undergone repair of the aneurysm of her graft, excisional debridement right lower extremity. Currently she is feeling better denies any cough fevers chills nausea vomiting diarrhea. Appetite is fair Objective - Vital Signs Vital signs: Vital Signs Temp 97.8 F 05/27/20 20:00 Pulse 72 05/27/20 20:00 Resp 20 05/27/20 20:00 BP 152/63 05/27/20 20:00 Pulse Ox 93 L 05/27/20 20:00 Intake & Output 05/27/20 05/28/20 05/28/20 18:59 06:59 18:59 Intake Total 440 240 Output Total 2300 0 Balance -1860 0 240 Weight 70.5 kg Intake: Oral 440 240 Output: Stool 0 Hemodialysis 2300 Other: Voiding Method Bedside Commode # Voids 0 # Bowel Movements 0 Patient was examined from the door because of Covid Looks comfortable is on room air Right leg is bandaged because of the debridement. Neurologically awake alert oriented and comfortable - Labs CBC & Chem 7: 05/27/20 06:51 05/27/20 06:51 Labs: Abnormal Lab Results - Last 24 Hours (Table) 05/28/20 Range/Units 05:55 POC Glucose (mg/dL) 122 H (75-99) mg/dL Assessment and Plan Assessment: Impression 1. ESRD on dialysis Friday with a permacath on the left 2. History of injury with hematoma right leg status post debridement, dated 05/26/2020 3. Clotted AV graft status post repair left forearm, dated 05/26/2020. 4. Anemia from bleeding internally into the leg, hemoglobin is stable, 8.5 on 05/27/2020 5. Minimal degree of non-gap acidosis with bicarb is 19 Condition 1. No changes in medication. 2. Expect the bicarb improved 3. Will watch her hemoglobin
[2020-05-28 11:28] LABS: Glucose,Whole Blood 81 mg/dL (75-99)
[2020-05-28] MEDS ORDERED: DARBEPOETIN ALFA 60 MCG/0.3 ML SYRINGE SQ SCH (12:00)
[2020-05-28] MEDS: SENNOSIDES 8.6 MG TAB PO SCH ×2 (13:47→21:16)
[2020-05-28] MEDS: polyethylene glycoL 3350 17 GM POWD.PACK PO SCH (14:02)
--- NOTE | 2020-05-28 14:55 | P.PN ---
Subjective Progress Note Date: 05/28/20 Patient seen and examined. No issues. Doing well. Feeling better today than yesterday Objective - Vital Signs Vital signs: Vital Signs Temp 97.8 F 05/27/20 20:00 Pulse 79 05/28/20 08:30 Resp 17 05/28/20 08:30 BP 165/74 05/28/20 08:30 Pulse Ox 91 L 05/28/20 08:30 Intake & Output 05/27/20 05/28/20 05/28/20 18:59 06:59 18:59 Intake Total 440 240 Output Total 2300 0 Balance -1860 0 240 Weight 70.5 kg Intake: Oral 440 240 Output: Stool 0 Hemodialysis 2300 Other: Voiding Method Bedside Commode # Voids 0 # Bowel Movements 0 - Exam Gen. is a pleasant and cooperative chronically ill female in no acute distress. HEENT is normocephalic, atraumatic, extraocular motion intact. Heart is irregular in rate and rhythm. Lungs are clear. Abdomen is soft. Right upper extremities no clubbing, cyanosis or edema. Left upper extremity AV graft non- pulsatile. Thrombosed. Left upper extremity dressing clean, dry, intact. Dressing change. Incision clean, dry, intact. Some edema. Palpable radial and ulnar pulses. Right lower extremity wounds are changed. No. Drainage or discharge. - Labs CBC & Chem 7: 05/27/20 06:51 05/27/20 06:51 Labs: Abnormal Lab Results - Last 24 Hours (Table) 05/28/20 Range/Units 05:55 POC Glucose (mg/dL) 122 H (75-99) mg/dL Assessment and Plan Assessment: Postoperative day #2 from left upper extremity radial artery bypass, right lower extremity wound debridement End-stage renal disease on hemodialysis Thrombosed left upper extremity AV graft Left forearm pulsatile mass - large radial artery aneurysm Right lower leg hematoma secondary to fall, status post evacuation, necrotic tissue Atrial fibrillation. Exam blood thinners Hypertension Diabetes Chronic methadone Plan: Overall the patient appears to be doing well. Her labs are stable. We will plan to restart her eliquis today. Continue dialysis via tunnel catheter. Daily dressing changes. I am hopeful that if everything goes okay she may be home tomorrow
[2020-05-28 16:52] LABS: Glucose,Whole Blood 74 mg/dL (75-99)
[2020-05-28] MEDS: ALPRAZolam 1 MG TAB PO PRN ×2 (17:20→23:21)
[2020-05-28 20:52] LABS: Glucose,Whole Blood 118 mg/dL (75-99)
[2020-05-28] MEDS: ATORVASTATIN 40 MG TAB PO SCH (21:16)
[2020-05-28] MEDS: APIXABAN 2.5 MG TABLET PO SCH (21:16)
[2020-05-29] MEDS: HYDROmorphone 1 MG/ML 1 ML SYRINGE IVP PRN ×5 (04:03→21:37)
[2020-05-29 06:23] LABS: Glucose,Whole Blood 82 mg/dL (75-99)
[2020-05-29] MEDS: INSULIN ASPART (NovoLOG) 100 UNIT/ML VIAL SQ SCH ×4 (06:28→21:34)
[2020-05-29] MEDS: ACETAMINOPHEN TAB 325 MG TAB PO PRN ×2 (06:31→19:43)
[2020-05-29] MEDS: LEVOTHYROXINE 75 MCG TAB PO SCH (06:32)
[2020-05-29] MEDS: CALCIUM ACETATE 667 MG TAB PO SCH ×3 (07:30→17:28)
[2020-05-29] MEDS: PANTOPRAZOLE 40 MG TABLET PO SCH (08:48)
[2020-05-29] MEDS: polyethylene glycoL 3350 17 GM POWD.PACK PO SCH (08:48)
[2020-05-29] MEDS: SENNOSIDES 8.6 MG TAB PO SCH (08:48)
[2020-05-29] MEDS: FOLIC ACID-VIT B COMPLEX-VIT C 1 CAP PO SCH (08:48)
[2020-05-29] MEDS: APIXABAN 2.5 MG TABLET PO SCH ×2 (08:49→19:43)
[2020-05-29] MEDS: METHADONE 10 MG TAB PO SCH (08:49)
[2020-05-29 09:01] LABS: Anisocytosis Slight; Basophils % (A) 0 %; Eosinophils # (A) 0.3 k/uL (0-0.7); Eosinophils % (A) 2 %; HCT 27.3 % (34.0-46.0); HGB 8.8 gm/dL (11.4-16.0); Hypochromasia Moderate; Lymphocytes # (A) 2.2 k/uL (1.0-4.8); Lymphocytes % (A) 21 %; MCH 31.7 pg (25.0-35.0); MCHC 32.4 g/dL (31.0-37.0); MCV 97.7 fL (80.0-100.0); Macrocytosis Slight; Mean Platelet Volume 9.5; Monocytes # (A) 0.8 k/uL (0-1.0); Monocytes % (A) 8 %; Neutrophils % (A) 66 %; Platelet Count 213 k/uL (150-450); Poikilocytosis Slight; RBC 2.79 m/uL (3.80-5.40); RDW 16.6 % (11.5-15.5); WBC 10.6 k/uL (3.8-10.6)
--- NOTE | 2020-05-29 10:33 | P.PN ---
Subjective Progress Note Date: 05/29/20 Principal diagnosis: Leg hematoma Patient was told that she was going to be discharged today, initially she said ok but then she changed her mind saying that she was too weak to go home. Objective - Vital Signs Vital signs: Vital Signs Temp 98.6 F 05/28/20 23:55 Pulse 67 05/28/20 23:55 Resp 18 05/29/20 02:00 BP 146/71 05/28/20 23:55 Pulse Ox 94 L 05/28/20 23:55 Intake & Output 05/28/20 05/29/20 05/29/20 18:59 06:59 18:59 Intake Total 705 240 Output Total 0 Balance 705 0 240 Weight 70.5 kg Intake: Intake, IV Titration 100 Amount Sodium Chloride 0.9% 1, 100 000 ml @ 20 mls/hr IV . Q24H [facility] Rx#:[id number] Oral 605 240 Output: Stool 0 Other: Voiding Method Bedside Commode # Voids 0 1 # Bowel Movements 1 - Exam Gen. is a pleasant and cooperative chronically ill female in no acute distress. HEENT is normocephalic, atraumatic, extraocular motion intact. Heart is irregular in rate and rhythm. Lungs are clear. Abdomen is soft. Nontender and nondistended. Right upper extremities no clubbing, cyanosis or edema. Left upper extremity AV graft non-pulsatile. Surgical dressings applied. Right lower extremity surgical dressings applied. No purulent drainage. 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 -S/P placement of tunneled dialysis catheter. -Radial artery bypass done by vascular on 05/26/20 Chronic pain with chronic opioid use/constipation Laxatives Acute blood loss anemia, secondary to right lower extremity hematoma -Continue to monitor hemoglobin with transfusion prn -Status post PRBCs transfusion -Hemoglobin stable currently ESRD on hemodialysis -Continue hemodialysis through left permacath. -Nephrology following. A. fib According to vascular surgery anticoagulation with Eliquis can be restarted. Hemoglobin stable DM -Discontinue Levemir in setting of low normal blood glucose levels -Glucose currently ok only on SSI Hypertension, HLD -C/w home meds General weakness PT evaluation and treatment Discussed with: Patient Anticipated discharge date: tomorrow Anticipated discharge place: Home, patient not interested in going to rehab. A total of 35 minutes was spent on the care of this complex patient more than 50% of the time was spent in counseling and care coordination.
[2020-05-29 11:33] LABS: Glucose,Whole Blood 167 mg/dL (75-99)
--- NOTE | 2020-05-29 11:47 | P.PN ---
Subjective Patient is seen in follow-up for end-stage renal disease. She is maintained on hemodialysis on Friday schedule. Denies chest pain or shortness of breath. Oral intake is fair. Blood pressure stable. Vital signs are stable. General: The patient appeared well nourished and normally developed. HEENT: Head exam is unremarkable. Neck is without jugular venous distension. LUNGS: Breath sounds decreased. HEART: Rate and Rhythm are regular. ABDOMEN: Soft, nontender. EXTREMITITES: No edema. Left AKA. Objective - Vital Signs Vital signs: Vital Signs Temp 98.7 F 05/29/20 08:00 Pulse 70 05/29/20 08:00 Resp 18 05/29/20 08:00 BP 142/69 05/29/20 08:00 Pulse Ox 96 05/29/20 08:00 Intake & Output 05/28/20 05/29/20 05/29/20 18:59 06:59 18:59 Intake Total 705 240 Output Total 0 0 Balance 705 0 240 Weight 70.5 kg Intake: Intake, IV Titration 100 Amount Sodium Chloride 0.9% 1, 100 000 ml @ 20 mls/hr IV . Q24H [facility] Rx#:[id number] Oral 605 240 Output: Stool 0 0 Other: Voiding Method Bedside Commode Bedside Commode # Voids 0 1 # Bowel Movements 1 - Labs CBC & Chem 7: 05/29/20 07:08 05/27/20 06:51 Labs: Abnormal Lab Results - Last 24 Hours (Table) 05/28/20 05/28/20 05/29/20 Range/Units 16:50 20:51 07:08 RBC 2.79 L (3.80-5.40) m/uL Hgb 8.8 L (11.4-16.0) gm/dL Hct 27.3 L (34.0-46.0) % RDW 16.6 H (11.5-15.5) % POC Glucose (mg/dL) 74 L 118 H (75-99) mg/dL 05/29/20 Range/Units 11:31 RBC (3.80-5.40) m/uL Hgb (11.4-16.0) gm/dL Hct (34.0-46.0) % RDW (11.5-15.5) % POC Glucose (mg/dL) 167 H (75-99) mg/dL Assessment and Plan Plan: Assessment: 1. End-stage renal disease maintained on hemodialysis on Friday schedule. 2. Thrombosed left upper extremity AV graft. Currently using permacath. 3. Left radial artery aneurysm status post bypass. 4. Status post right lower extremity wound debridement. 5. Chronic kidney disease mineral bone disease maintained on PhosLo. 6. Anemia of chronic kidney disease maintained on Aranesp. 7. Hypertension with chronic kidney disease. Stable. 8. Diabetes mellitus. 9. Metabolic acidosis secondary to chronic kidney disease. Expect improvement postdialysis. Plan: Hemodialysis tomorrow. Repeat BMP. Check iron studies.
[2020-05-29] MEDS ORDERED: SODIUM CHLORIDE 0.9% 1,000 ML IV STA (12:10)
[2020-05-29] MEDS ORDERED: bisacodyL 10 MG SUPP RECTAL STA (12:12)
[2020-05-29] MEDS ORDERED: NYSTATIN 100,000 UNIT/GM POWD 15 GM TOPICAL SCH (12:15)
[2020-05-29] MEDS: SENNOSIDES-DOCUSATE SODIUM 1 EACH TAB PO SCH ×2 (12:57→19:42)
--- NOTE | 2020-05-29 16:48 | P.PN ---
Subjective Progress Note Date: 05/29/20 She was seen and examined, she is in no acute distress. No issues overnight. She states overall she is feeling much better. She has no difficulty moving her left upper extremity or wiggling her fingers. Objective - Vital Signs Vital signs: Vital Signs Temp 98.6 F 05/28/20 23:55 Pulse 67 05/28/20 23:55 Resp 18 05/29/20 02:00 BP 146/71 05/28/20 23:55 Pulse Ox 94 L 05/28/20 23:55 Intake & Output 05/28/20 05/29/20 05/29/20 18:59 06:59 18:59 Intake Total 705 Output Total 0 Balance 705 0 Weight 70.5 kg Intake: Intake, IV Titration 100 Amount Sodium Chloride 0.9% 1, 100 000 ml @ 20 mls/hr IV . Q24H [facility] Rx#:[id number] Oral 605 Output: Stool 0 Other: Voiding Method Bedside Commode # Voids 0 1 # Bowel Movements 1 - Exam General appearance: The patient is alert, oriented, in no acute distress. HET: Head is normocephalic and atraumatic. Neck: Supple Trachea midline. Heart: S1 S2. Regular rate and rhythm. Lungs: No crackles or wheezes are heard. Extremities: Left upper extremity with dressing clean dry and intact, palpable radial pulse. Good capillary refill, sensorimotor intact. Right lower extremity dressing clean dry and intact. Neurological: No focal deficits. Strength and sensation are grossly intact. - Labs CBC & Chem 7: 05/29/20 07:08 05/27/20 06:51 Labs: Abnormal Lab Results - Last 24 Hours (Table) 05/28/20 05/28/20 05/29/20 Range/Units 16:50 20:51 07:08 RBC 2.79 L (3.80-5.40) m/uL Hgb 8.8 L (11.4-16.0) gm/dL Hct 27.3 L (34.0-46.0) % RDW 16.6 H (11.5-15.5) % POC Glucose (mg/dL) 74 L 118 H (75-99) mg/dL Assessment and Plan Assessment: 1. Postop day #3 from left upper extremity radial artery bypass, right lower extremity wound debridement 2. End-stage renal disease on hemodialysis 3. Thrombosed left upper extremity AV graft 4. 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 Right lower leg hematoma secondary to fall, status post evacuation, necrotic tissue 6. Atrial fibrillation on Eliquis Plan: May restart Eliquis, continue dialysis via tunneled catheter as ordered per nephrology. Daily dressing changes. Patient may be discharged home today from a vascular surgical standpoint with follow-up Dr. Redd in 1-2 weeks. The above dictated assessment and findings were discussed with Dr. Humphries. The impression and plan of care have been directed as dictated.
[2020-05-29 17:02] LABS: Glucose,Whole Blood 124 mg/dL (75-99)
[2020-05-29] MEDS: ALPRAZolam 1 MG TAB PO PRN (18:36)
[2020-05-29] MEDS: ATORVASTATIN 40 MG TAB PO SCH (19:43)
[2020-05-29 20:06] LABS: Glucose,Whole Blood 153 mg/dL (75-99)
[2020-05-29 20:33] LABS: % Iron Saturation 7.11 (12.00-45.00)
[2020-05-29 21:24] LABS: Appearance,Urine Turbid (Clear); Bilirubin,Urine Negative (Negative); Blood,Urine Small (Negative); Color,Urine Light Red; Glucose,Urine (UA) Negative (Negative); Ketones,Urine Negative (Negative); Leukocyte Esterase,Urine Large (Negative); Nitrite,Urine Negative (Negative); PH, Urine 5.5 (5.0-8.0); Protein,Urine 3+ (Negative); Squamous Epithelial Cell,Urine 16 /hpf (0-4); Urobilinogen,Urine <2.0 mg/dL (<2.0); WBC,Urine >182 /hpf (0-5)
[2020-05-29 21:25] LABS: Specific Gravity,Urine 1.022 (1.001-1.035)
[2020-05-30] MEDS: HYDROmorphone 1 MG/ML 1 ML SYRINGE IVP PRN ×2 (04:55→15:50)
[2020-05-30] MEDS: ALPRAZolam 1 MG TAB PO PRN (04:55)
[2020-05-30 05:33] VITALS: PULSE 61
[2020-05-30 05:59] LABS: Glucose,Whole Blood 146 mg/dL (75-99)
[2020-05-30] MEDS: INSULIN ASPART (NovoLOG) 100 UNIT/ML VIAL SQ SCH ×2 (06:29→14:34)
[2020-05-30] MEDS: LEVOTHYROXINE 75 MCG TAB PO SCH (06:29)
[2020-05-30 08:12] LABS: Calcium 7.5 mg/dL (8.4-10.2)
[2020-05-30 08:14] LABS: Potassium 4.6 mmol/L (3.5-5.1)
[2020-05-30] MEDS: CALCIUM ACETATE 667 MG TAB PO SCH ×2 (09:36→14:34)
[2020-05-30] MEDS: PANTOPRAZOLE 40 MG TABLET PO SCH (09:36)
[2020-05-30] MEDS: APIXABAN 2.5 MG TABLET PO SCH (09:36)
[2020-05-30] MEDS: FOLIC ACID-VIT B COMPLEX-VIT C 1 CAP PO SCH (09:41)
[2020-05-30] MEDS: METHADONE 10 MG TAB PO SCH (09:41)
[2020-05-30] MEDS: polyethylene glycoL 3350 17 GM POWD.PACK PO SCH (10:31)
[2020-05-30] MEDS: SENNOSIDES-DOCUSATE SODIUM 1 EACH TAB PO SCH (10:31)
[2020-05-30 10:39] VITALS: BP 145/73; RESP 16; TEMP 97.9
[2020-05-30 11:42] LABS: Glucose,Whole Blood 144 mg/dL (75-99)
--- NOTE | 2020-05-30 12:00 | P.DS ---
Providers Date of admission: 05/20/20 20:09 Expected date of discharge: 05/30/20 Attending physician: Marco Fuentes MD Consults: 05/20/20 19:59 Consult Physician Routine Consulting Provider: Juno Saldivar Consult Reason/Comments: complex leg laceration Do you want consulting provider notified?: Yes 05/20/20 20:09 Consult Physician Routine Consulting Provider: Chemo Hernandez Consult Reason/Comments: dialysis Do you want consulting provider notified?: Already Contacted 05/21/20 09:04 Consult Physician Routine Consulting Provider: Ubaldo Rayo Consult Reason/Comments: right leg hematoma Do you want consulting provider notified?: Yes Primary care physician: Physician Nonstaff Hospital Course: 69 year old female with ESRD on HD, DM, HTN, Afib on AC presented to the hospital after sustaining an injury to her right leg. Patient bumped her leg during the nighttime/top lift scourer into the wall while transferring from her toilet seat to wheelchair, no loss of consciousness or head injury. Patient went back to bed, and when she woke up in the morning she noticed a big hematoma over her right leg , which later bursted and resulted in profuse bleeding. Patient otherwise any changes in her baseline health, denies any URI symptoms, GI changes, or fever, chills, chest pain or trouble breathing. Of note she recently had a revision of her left arm AV graft, and was started on antibiotics on 05/17. In the emergency department patient was found to have acute blood loss anemia from her baseline of 10 down to 7.7. She was admitted for further management. After admission her hemoglobin dropped down to 6, she was transfused 2 units of packed red blood cells. Potassium was 6.9 and she underwent hemodialysis multiple times during the hospitalization. Due to problems with her AV fistula she was getting dialysis through right sided permacath. Right lower extremity hematoma was debrided 2 by vascular surgery. Further follow-up with wound care clinic was established. Patient was found to have thrombosed AV fistula in the left arm and the fistula was not salvageable according to vascular surgery. Due to that she had left permacath placement. 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 During the hospitalization the bleeding was stabilized and vascular surgery service cleared patient to be resumed on the eliquis. Patient did have physical therapy evaluation and treatment during the hospitalization but she declined going to rehab upon discharge. Time for discharge 35 minutes. Patient Condition at Discharge: Fair Plan - Discharge Summary New Discharge Prescriptions: New Acetaminophen Tab [Tylenol] 650 mg PO Q6HR PRN tab PRN Reason: Mild Pain Or Fever > 100.5 Darbepoetin Carroll [Aranesp] 60 mcg SQ Q7D syringe Apixaban [Eliquis] 2.5 mg PO BID tablet polyethylene glycoL 3350 [Miralax] 17 gm PO DAILY 30 Days #30 powd.pack Sennosides [Senokot] 8.6 mg PO BID 30 Days #60 tab Continue Insulin Degludec [Tresiba Flextouch U-100] 10 units SQ DAILY Omeprazole 20 mg PO DAILY Losartan Potassium 50 mg PO DAILY Linaclotide [Linzess] 290 mcg PO HS Lidocaine-Prilocaine Cream [Emla Cream 2.5%/2.5%] 1 applic TOPICAL DIRECT ED PRN PRN Reason: PORT ACCESS Lidocaine 5% Oint [Xylocaine 5% Oint] 1 applic TOPICAL BID PRN PRN Reason: Pain Levothyroxine Sodium [Synthroid] 150 mcg PO DAILY Levocetirizine Dihydrochloride 5 mg PO DAILY PRN PRN Reason: Allergy Symptoms hydrALAZINE HCL [Apresoline] 50 mg PO TID Carvedilol [Coreg] 3.125 mg PO BID PRN PRN Reason: SBP>150 Atorvastatin [Lipitor] 40 mg PO HS Calcium Acetate [PhosLo] 1 cap PO AC-TID ALPRAZolam [Xanax] 1 mg PO Q8H PRN PRN Reason: Anxiety Nephro-Ann Tab 1 tab PO DAILY Ketoconazole [Nizoral A-D] 1 applic TOPICAL Q72H Methadone HCl [Methadone Intensol] 120 mg PO DAILY amLODIPine [Norvasc] 5 mg PO DAILY PRN PRN Reason: SBP OVER 150 Vit C/E/Zn/Coppr/Lutein/Zeaxan [Preservision Areds 2 Softgel] 1 cap PO BID Cholecalciferol [Vitamin D3 (25 Mcg = 1000 Iu)] 2,000 unit PO DAILY Insulin Lispro [humaLOG Kwikpen] See Protocol SQ AC-TID Furosemide [Lasix] 20 mg PO DAILY PRN PRN Reason: Edema Ferrous Sulfate [Iron (65 MG Elemental)] 325 mg PO DAILY Discontinued Apixaban [Eliquis] 2.5 mg PO BID Cefdinir [Omnicef] 300 mg PO BID Discharge Medication List ALPRAZolam [Xanax] 1 mg PO Q8H PRN 04/18/20 [History] Atorvastatin [Lipitor] 40 mg PO HS 04/18/20 [History] Calcium Acetate [PhosLo] 1 cap PO AC-TID 04/18/20 [History] Carvedilol [Coreg] 3.125 mg PO BID PRN 04/18/20 [History] Insulin Degludec [Tresiba Flextouch U-100] 10 units SQ DAILY 04/18/20 [History] Ketoconazole [Nizoral A-D] 1 applic TOPICAL Q72H 04/18/20 [History] Levocetirizine Dihydrochloride 5 mg PO DAILY PRN 04/18/20 [History] Levothyroxine Sodium [Synthroid] 150 mcg PO DAILY 04/18/20 [History] Lidocaine 5% Oint [Xylocaine 5% Oint] 1 applic TOPICAL BID PRN 04/18/20 [History] Lidocaine-Prilocaine Cream [Emla Cream 2.5%/2.5%] 1 applic TOPICAL DIRECTED PRN 04/18/20 [History] Linaclotide [Linzess] 290 mcg PO HS 04/18/20 [History] Losartan Potassium 50 mg PO DAILY 04/18/20 [History] Methadone HCl [Methadone Intensol] 120 mg PO DAILY 04/18/20 [History] Nephro-Ann Tab 1 tab PO DAILY 04/18/20 [History] Omeprazole 20 mg PO DAILY 04/18/20 [History] hydrALAZINE HCL [Apresoline] 50 mg PO TID 04/18/20 [History] amLODIPine [Norvasc] 5 mg PO DAILY PRN 05/01/20 [History] Cholecalciferol [Vitamin D3 (25 Mcg = 1000 Iu)] 2,000 unit PO DAILY 05/20/20 [History] Ferrous Sulfate [Iron (65 MG Elemental)] 325 mg PO DAILY 05/20/20 [History] Furosemide [Lasix] 20 mg PO DAILY PRN 05/20/20 [History] Insulin Lispro [humaLOG Kwikpen] See Protocol SQ AC-TID 05/20/20 [History] Vit C/E/Zn/Coppr/Lutein/Zeaxan [Preservision Areds 2 Softgel] 1 cap PO BID 05/20/20 [History] Acetaminophen Tab [Tylenol] 650 mg PO Q6HR PRN tab 05/23/20 [Rx] Apixaban [Eliquis] 2.5 mg PO BID tablet 05/29/20 [Rx] Darbepoetin Carroll [Aranesp] 60 mcg SQ Q7D syringe 05/29/20 [Rx] Sennosides [Senokot] 8.6 mg PO BID 30 Days #60 tab 05/29/20 [Rx] polyethylene glycoL 3350 [Miralax] 17 gm PO DAILY 30 Days #30 powd.pack 05/29/20 [Rx] Follow up Appointment(s)/Referral(s): Abby Redd DO [STAFF PHYSICIAN] - 1 Week [facility], [NON-STAFF] - Nonstaff,Physician [Primary Care Provider] - 1-2 days Activity/Diet/Wound Care/Special Instructions: Hold your BP medications for 2 days, then continue as scheduled. You need to discuss restarting eliquis with your primary doctor. Discharge Disposition: HOME WITH HOME HEALTH SERVICES
[2020-05-30] MEDS ORDERED: SODIUM FERRIC GLUCONAT-SUCROSE 125 MG in SODIUM CHLORIDE 0.9% 100 ML IVPB ONE (13:02)
--- NOTE | 2020-05-30 13:03 | P.PN ---
Subjective Patient is seen in follow-up for end-stage renal disease. She is maintained on hemodialysis on Friday schedule. Completed dialysis this morning. Denies chest pain or shortness of breath. Oral intake is fair. Blood pressure stable. Wants to go home. Vital signs are stable. General: The patient appeared well nourished and normally developed. HEENT: Head exam is unremarkable. Neck is without jugular venous distension. LUNGS: Breath sounds decreased. HEART: Rate and Rhythm are regular. ABDOMEN: Soft, nontender. EXTREMITITES: No edema. Left AKA. Objective - Vital Signs Vital signs: Vital Signs Temp 97.9 F 05/30/20 08:00 Pulse 61 05/30/20 08:00 Resp 16 05/30/20 08:00 BP 145/73 05/30/20 08:00 Pulse Ox 95 05/30/20 08:00 Intake & Output 05/29/20 05/30/20 05/30/20 18:59 06:59 18:59 Intake Total 720 240 240 Output Total 0 200 0 Balance 720 40 240 Weight 72 kg Intake: Oral 720 240 240 Output: Urine 200 Stool 0 0 0 Other: Voiding Method Bedside Commode Bedside Commode Bedside Commode # Voids 1 0 1 # Bowel Movements 1 - Labs CBC & Chem 7: 05/29/20 07:08 05/30/20 07:05 Labs: Abnormal Lab Results - Last 24 Hours (Table) 05/29/20 05/29/20 05/29/20 Range/Units 11:54 16:51 20:04 Sodium (137-145) mmol/L Chloride (98-107) mmol/L BUN (7-17) mg/dL Creatinine (0.52-1.04) mg/dL POC Glucose (mg/dL) 124 H 153 H (75-99) mg/dL Calcium (8.4-10.2) mg/dL Iron 15 L (50-170) ug/dL TIBC 211 L (228-460) ug/dL % Saturation 7.11 L (12.00-45.00) Ferritin 537.0 H (10.0-291.0) ng/mL Urine Appearance (Clear) Urine Protein (Negative) Urine Blood (Negative) Ur Leukocyte Esterase (Negative) Urine WBC (0-5) /hpf Urine WBC Clumps (None) /hpf Ur Squamous Epith Cells (0-4) /hpf 05/29/20 05/30/20 05/30/20 Range/Units 21:16 05:57 07:05 Sodium 135 L (137-145) mmol/L Chloride 108 H (98-107) mmol/L BUN 47 H (7-17) mg/dL Creatinine 5.29 H (0.52-1.04) mg/dL POC Glucose (mg/dL) 146 H (75-99) mg/dL Calcium 7.5 L (8.4-10.2) mg/dL Iron (50-170) ug/dL TIBC (228-460) ug/dL % Saturation (12.00-45.00) Ferritin (10.0-291.0) ng/mL Urine Appearance Turbid H (Clear) Urine Protein 3+ H (Negative) Urine Blood Small H (Negative) Ur Leukocyte Esterase Large H (Negative) Urine WBC >182 H (0-5) /hpf Urine WBC Clumps Many H (None) /hpf Ur Squamous Epith Cells 16 H (0-4) /hpf 05/30/20 Range/Units 11:40 Sodium (137-145) mmol/L Chloride (98-107) mmol/L BUN (7-17) mg/dL Creatinine (0.52-1.04) mg/dL POC Glucose (mg/dL) 144 H (75-99) mg/dL Calcium (8.4-10.2) mg/dL Iron (50-170) ug/dL TIBC (228-460) ug/dL % Saturation (12.00-45.00) Ferritin (10.0-291.0) ng/mL Urine Appearance (Clear) Urine Protein (Negative) Urine Blood (Negative) Ur Leukocyte Esterase (Negative) Urine WBC (0-5) /hpf Urine WBC Clumps (None) /hpf Ur Squamous Epith Cells (0-4) /hpf Microbiology - Last 24 Hours (Table) 05/29/20 21:16 Urine Culture - Preliminary Urine,Voided Assessment and Plan Plan: Assessment: 1. End-stage renal disease maintained on hemodialysis on Friday schedule. 2. Thrombosed left upper extremity AV graft. Currently using permacath. 3. Left radial artery aneurysm status post bypass. 4. Status post right lower extremity wound debridement. 5. Chronic kidney disease mineral bone disease maintained on PhosLo. 6. Anemia of chronic kidney disease maintained on Aranesp. Iron deficiency noted. 7. Hypertension with chronic kidney disease. Stable. 8. Diabetes mellitus. 9. Metabolic acidosis secondary to chronic kidney disease. Improved postdialysis. Plan: Hemodialysis on . I will give her dose of IV iron today. Stable for discharge home from nephrology standpoint.
--- NOTE | 2020-05-30 14:13 | P.PN ---
Subjective Progress Note Date: 05/30/20 She was seen and examined, she is in no acute distress. He is currently receiving hemodialysis treatment. No issues overnight. She states overall she is feeling much better. She has no difficulty moving her left upper extremity or wiggling her fingers. Denies any fevers or chills through the night. Objective - Vital Signs Vital signs: Vital Signs Temp 98 F 05/30/20 04:00 Pulse 61 05/30/20 04:00 Resp 18 05/30/20 04:00 BP 145/67 05/30/20 04:00 Pulse Ox 93 L 05/30/20 04:00 Intake & Output 05/29/20 05/30/20 05/30/20 18:59 06:59 18:59 Intake Total 720 240 240 Output Total 0 200 Balance 720 40 240 Weight 72 kg Intake: Oral 720 240 240 Output: Urine 200 Stool 0 0 Other: Voiding Method Bedside Commode Bedside Commode # Voids 1 0 1 # Bowel Movements 1 - Exam General appearance: The patient is alert, oriented, in no acute distress. HET: Head is normocephalic and atraumatic. Neck: Supple Trachea midline. Heart: S1 S2. Regular rate and rhythm. Lungs: No crackles or wheezes are heard. Extremities: Left upper extremity with dressing clean dry and intact, palpable radial pulse. Good capillary refill, sensorimotor intact. Right lower extremity dressing clean dry and intact. Neurological: No focal deficits. Strength and sensation are grossly intact. - Labs CBC & Chem 7: 05/29/20 07:08 05/30/20 07:05 Labs: Abnormal Lab Results - Last 24 Hours (Table) 05/29/20 05/29/20 05/29/20 Range/Units 11:31 11:54 16:51 Sodium (137-145) mmol/L Chloride (98-107) mmol/L BUN (7-17) mg/dL Creatinine (0.52-1.04) mg/dL POC Glucose (mg/dL) 167 H 124 H (75-99) mg/dL Calcium (8.4-10.2) mg/dL Iron 15 L (50-170) ug/dL TIBC 211 L (228-460) ug/dL % Saturation 7.11 L (12.00-45.00) Ferritin 537.0 H (10.0-291.0) ng/mL Urine Appearance (Clear) Urine Protein (Negative) Urine Blood (Negative) Ur Leukocyte Esterase (Negative) Urine WBC (0-5) /hpf Urine WBC Clumps (None) /hpf Ur Squamous Epith Cells (0-4) /hpf 05/29/20 05/29/20 05/30/20 Range/Units 20:04 21:16 05:57 Sodium (137-145) mmol/L Chloride (98-107) mmol/L BUN (7-17) mg/dL Creatinine (0.52-1.04) mg/dL POC Glucose (mg/dL) 153 H 146 H (75-99) mg/dL Calcium (8.4-10.2) mg/dL Iron (50-170) ug/dL TIBC (228-460) ug/dL % Saturation (12.00-45.00) Ferritin (10.0-291.0) ng/mL Urine Appearance Turbid H (Clear) Urine Protein 3+ H (Negative) Urine Blood Small H (Negative) Ur Leukocyte Esterase Large H (Negative) Urine WBC >182 H (0-5) /hpf Urine WBC Clumps Many H (None) /hpf Ur Squamous Epith Cells 16 H (0-4) /hpf 05/30/20 Range/Units 07:05 Sodium 135 L (137-145) mmol/L Chloride 108 H (98-107) mmol/L BUN 47 H (7-17) mg/dL Creatinine 5.29 H (0.52-1.04) mg/dL POC Glucose (mg/dL) (75-99) mg/dL Calcium 7.5 L (8.4-10.2) mg/dL Iron (50-170) ug/dL TIBC (228-460) ug/dL % Saturation (12.00-45.00) Ferritin (10.0-291.0) ng/mL Urine Appearance (Clear) Urine Protein (Negative) Urine Blood (Negative) Ur Leukocyte Esterase (Negative) Urine WBC (0-5) /hpf Urine WBC Clumps (None) /hpf Ur Squamous Epith Cells (0-4) /hpf Microbiology - Last 24 Hours (Table) 05/29/20 21:16 Urine Culture - Preliminary Urine,Voided Assessment and Plan Assessment: 1. Postop day #4 from left upper extremity radial artery bypass, right lower extremity wound debridement 2. End-stage renal disease on hemodialysis 3. Thrombosed left upper extremity AV graft 4. 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 Right lower leg hematoma secondary to fall, status post evacuation, necrotic tissue 6. Atrial fibrillation on Eliquis Plan: May restart Eliquis, continue dialysis via tunneled catheter as ordered per nephrology. Daily dressing changes. Patient may be discharged home today from a vascular surgical standpoint with follow-up Dr. Redd in 1-2 weeks. The impression and plan of care has been dictated as directed. Dr. Rayo I performed a history and examination of this patient, discussed the same with the dictator. I agree with the dictator's note ,documented as a scribe. Any additional findings or plans will be noted.
--- NOTE | 2020-06-05 14:26 | P.OP ---
Date of Procedure: 05/24/20 Description of Procedure: Preoperative diagnosis: End-stage renal disease, thrombosed left upper extremity AV graft Postoperative diagnosis: Same Procedure: [Ultrasound-guided left internal jugular vein access, fluoroscopic assisted placement of tunneled dialysis catheter] Surgeon: Abby Redd D.O. EBL: [Less than 10 mL] IV fluids: [See records] Urine output: [Not measured] Drains: [None] Complications: [None immediately apparent] Condition: [Stable to recovery] Operative indication and findings: [The patient is a 69-year-old female with end-stage renal disease who has had a malfunctioning left upper extremity graft which has subsequently thrombosed. She also has a left-sided 3.5 cm radial ar christian aneurysm that will be undergoing repair in the near future. It was planned that she should undergo a tunneled dialysis catheter placement] Procedure in detail: [The patient was taken to the operative suite and placed in supine position. The bilateral necks were prepped and draped in usual sterile fashion. A preprocedure timeout was performed, all parties were in agreement. The ultrasound was utilized and the left internal jugular vein was identified. The skin overlying was anesthetized with 1% lidocaine plain. The jugular vein was accessed on first attempt with return of dark venous nonpulsatile blood. A guidewire was advanced. It was confirmed in proper positioning with fluoroscopy. At that point the proposed tunnel was anesthetized with 1% lidocaine plain. A small renard in the skin of the chest wall was made approximately 2 cm inferior to the clavicle. In the previously flushed catheter was tunneled. Serial dilation was performed with the dilators leaving the tear-away sheath. The catheter was then advanced through the sheath in the sheath was removed. Both ports aspirated and flushed freely. The incision at the neck was reapproximated with interrupted sutures of 3-0 Vicryl. The catheter was sutured in place at the chest wall with nylon. Dressings were placed. A post procedure chest x-ray was performed with good positioning and no evidence of pneumothorax. The patient tolerated the procedure well.
== END 2020-05-30 17:52 | disposition home health service (06) | DRG 570 ==
LOC: EC 16:49 → 4SSUR 20:09 → 3SCARD 05-21 01:59
PROVIDERS: ADMIT Internal Medicine; ATTEND Internal Medicine
PROC: 5A1D70Z Performance of Urinary Filtration, Intermittent, Less than 6 Hours Per Day (ICD-10-PCS; 2020-05-20)
PROC: 0J9N0ZZ Drainage of Right Lower Leg Subcutaneous Tissue and Fascia, Open Approach (ICD-10-PCS; 2020-05-21)
PROC: 0JPT3XZ Removal of Tunneled Vascular Access Device from Trunk Subcutaneous Tissue and Fascia, Percutaneous Approach (ICD-10-PCS; 2020-05-21)
PROC: 30233N1 Transfusion of Nonautologous Red Blood Cells into Peripheral Vein, Percutaneous Approach (ICD-10-PCS; 2020-05-21)
PROC: 05HD33Z Insertion of Infusion Device into Right Cephalic Vein, Percutaneous Approach (ICD-10-PCS; 2020-05-22)
PROC: 0JH63XZ Insertion of Tunneled Vascular Access Device into Chest Subcutaneous Tissue and Fascia, Percutaneous Approach (ICD-10-PCS; 2020-05-25)
PROC: 02H633Z Insertion of Infusion Device into Right Atrium, Percutaneous Approach (ICD-10-PCS; 2020-05-25)
PROC: 4A133J1 Monitoring of Arterial Pulse, Peripheral, Percutaneous Approach (ICD-10-PCS; 2020-05-26)
PROC: 4A133B1 Monitoring of Arterial Pressure, Peripheral, Percutaneous Approach (ICD-10-PCS; 2020-05-26)
PROC: 03HY32Z Insertion of Monitoring Device into Upper Artery, Percutaneous Approach (ICD-10-PCS; 2020-05-26)
PROC: 0JBN0ZZ Excision of Right Lower Leg Subcutaneous Tissue and Fascia, Open Approach (ICD-10-PCS; principal; 2020-05-26 08:00)
PROC: 03WY0KZ Revision of Nonautologous Tissue Substitute in Upper Artery, Open Approach (ICD-10-PCS; principal; 2020-05-26 08:00)
DX: S80.11XA Contusion of right lower leg, initial encounter (principal); N18.6 End stage renal disease; I12.0 Hypertensive chronic kidney disease with stage 5 chronic kidney disease or end stage renal disease; E11.52 Type 2 diabetes mellitus with diabetic peripheral angiopathy with gangrene; D62 Acute posthemorrhagic anemia; E87.2 Acidosis; T82.868A Thrombosis due to vascular prosthetic devices, implants and grafts, initial encounter; E11.649 Type 2 diabetes mellitus with hypoglycemia without coma; D63.1 Anemia in chronic kidney disease; I72.1 Aneurysm of artery of upper extremity; F03.90 Unspecified dementia, unspecified severity, without behavioral disturbance, psychotic disturbance, mood disturbance, and anxiety; E11.22 Type 2 diabetes mellitus with diabetic chronic kidney disease; E11.40 Type 2 diabetes mellitus with diabetic neuropathy, unspecified; Z89.612 Acquired absence of left leg above knee; Z79.4 Long term (current) use of insulin; I48.0 Paroxysmal atrial fibrillation; Z99.2 Dependence on renal dialysis; Z89.411 Acquired absence of right great toe; Z89.421 Acquired absence of other right toe(s); S81.811A Laceration without foreign body, right lower leg, initial encounter; E83.9 Disorder of mineral metabolism, unspecified; E87.5 Hyperkalemia; F11.90 Opioid use, unspecified, uncomplicated; K59.03 Drug induced constipation; T40.2X5A Adverse effect of other opioids, initial encounter; E03.9 Hypothyroidism, unspecified; E78.5 Hyperlipidemia, unspecified; E87.70 Fluid overload, unspecified; G89.29 Other chronic pain; H35.30 Unspecified macular degeneration; F17.200 Nicotine dependence, unspecified, uncomplicated; Z79.01 Long term (current) use of anticoagulants; Z79.890 Hormone replacement therapy; Z79.899 Other long term (current) drug therapy; Z90.89 Acquired absence of other organs; Z85.44 Personal history of malignant neoplasm of other female genital organs; Z98.890 Other specified postprocedural states; Z88.5 Allergy status to narcotic agent; W18.12XA Fall from or off toilet with subsequent striking against object, initial encounter; Y83.2 Surgical operation with anastomosis, bypass or graft as the cause of abnormal reaction of the patient, or of later complication, without mention of misadventure at the time of the procedure
CPT/HCPCS: 36410; 36415; 36558; 71045; 76937; 77001; 80048; 80053; 81001; 82728; 82805; 83540; 83550; 83735; 84132; 85025; 85027; 85610; 85730; 86850; 86900; 86901; 86920; 87086; 88304; 90471; 90715; 90935; 96372; 96374; 96375; 99285

== ENCOUNTER 2020-08-18 18:21 | Observation (INO) | payer MEDICARE, OTHER ==
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
[2020-08-18 19:34] LABS: Basophils # (A) 0.1 k/uL (0-0.2); Basophils % (A) 1 %; Eosinophils # (A) 0.4 k/uL (0-0.7); Eosinophils % (A) 4 %; HGB 13.6 gm/dL (11.4-16.0); Lymphocytes # (A) 2.9 k/uL (1.0-4.8); Lymphocytes % (A) 28 %; MCH 28.7 pg (25.0-35.0); MCHC 32.4 g/dL (31.0-37.0); MCV 88.5 fL (80.0-100.0); Mean Platelet Volume 7.9; Monocytes # (A) 0.7 k/uL (0-1.0); Monocytes % (A) 7 %; Neutrophils # (A) 6.2 k/uL (1.3-7.7); Neutrophils % (A) 59 %; Platelet Count 176 k/uL (150-450); RBC 4.74 m/uL (3.80-5.40); RDW 15.4 % (11.5-15.5); WBC 10.5 k/uL (3.8-10.6)
[2020-08-18 19:47] LABS: Albumin 4.2 g/dL (3.5-5.0); Potassium 5.5 mmol/L (3.5-5.1); Total Bilirubin 0.5 mg/dL (0.2-1.3); Total Protein 8.1 g/dL (6.3-8.2)
[2020-08-18] MEDS ORDERED: NALOXONE 0.4 MG/ML 1 ML VIAL IV PRN (20:39)
[2020-08-18] MEDS: ATORVASTATIN 40 MG TAB PO SCH (21:29)
[2020-08-18] MEDS: APIXABAN 2.5 MG TABLET PO SCH (21:29)
[2020-08-19] MEDS ORDERED: FUROSEMIDE 20 MG TAB PO PRN (00:59)
[2020-08-19] MEDS ORDERED: carvediloL 3.125 MG TAB PO PRN (00:59)
[2020-08-19] MEDS ORDERED: amLODIPine 5 MG TAB PO PRN (00:59)
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
[2020-08-19] MEDS: LEVOTHYROXINE 75 MCG TAB PO SCH (06:05)
[2020-08-19 07:32] LABS: Glucose,Whole Blood 80 mg/dL (75-99)
[2020-08-19] MEDS: FERROUS SULFATE 325 MG TAB PO SCH (08:09)
[2020-08-19] MEDS: METHADONE 10 MG TAB PO SCH (08:10)
[2020-08-19] MEDS: APIXABAN 2.5 MG TABLET PO SCH ×2 (08:10→21:23)
[2020-08-19] MEDS: CHOLECALCIFEROL 25 MCG (1000 IU) TABLET PO SCH (08:10)
[2020-08-19] MEDS: CALCIUM ACETATE 667 MG TAB PO SCH ×3 (08:12→17:04)
[2020-08-19] MEDS: INSULIN ASPART (NovoLOG) 100 UNIT/ML VIAL SQ SCH ×4 (08:12→21:23)
[2020-08-19 09:00] LABS: HGB 13.1 g/dL (12.0-15.0); MCH 28.2 pg (27.0-32.0); MCHC 31.2 g/dL (32.0-37.0); MCV 90.3 fL (80.0-97.0); Mean Platelet Volume 11.5 fL (9.5-12.2); Platelet Count 144 X 10*3/uL (140-440); RBC 4.65 X 10*6/uL (4.10-5.20); RDW 15.4 % (11.5-14.5); WBC 10.93 X 10*3/uL (4.50-10.00)
[2020-08-19 09:28] LABS: African American GFR (CKD) 7.8 (60.0-200.0); Albumin 3.8 g/dL (3.80-4.90); Albumin/Globulin Ratio 1.23 (1.60-3.17); Anion Gap 15.1 mmol/L (4.00-12.00); BUN/Creat Ratio 10.85 Ratio (12.00-20.00); Calcium 8.8 mg/dL (8.7-10.3); Carbon Dioxide 24.9 mmol/L (21.6-31.8); Globulin 3.1 g/dL (1.6-3.3); Non-African American GFR(CKD) 6.8 (60.0-200.0); Potassium 5.2 mmol/L (3.5-5.5); Total Bilirubin 0.2 mg/dL (0.3-1.2); Total Protein 6.9 g/dL (6.2-8.2)
[2020-08-19 11:46] LABS: Glucose,Whole Blood 145 mg/dL (75-99)
[2020-08-19] MEDS: hydrALAZINE HCL 50 MG TAB PO SCH ×3 (12:10→21:23)
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
[2020-08-19 14:56] LABS: Hemoglobin A1C 6.8 % (4.0-6.0)
--- NOTE | 2020-08-19 15:24 | P.PN ---
Subjective Progress Note Date: 08/19/20 Principal diagnosis: need for placement Feeling well, no complaints. No pain or sob. Objective - Vital Signs Vital signs: Vital Signs Temp 97.7 F 08/19/20 11:37 Pulse 63 08/19/20 11:37 Resp 18 08/19/20 11:37 BP 115/68 08/19/20 11:37 Pulse Ox 91 L 08/19/20 11:37 Intake & Output 08/18/20 08/19/20 08/19/20 18:59 06:59 18:59 Intake Total 120 Balance 120 Weight 61.235 kg 61.235 kg Intake: Oral 120 Other: Voiding Method Toilet # Voids 1 - Exam General: non toxic, no distress, appears older than stated age, normal weight Derm: RLE lateral aspect ulcer with some surrounding erythema, no unusual ecchymoses, warm, dry Head: atraumatic, normocephalic, symmetric Eyes: EOMI, no lid lag, anicteric sclera, pupils equal round reactive to light ENT: Nose and ears atraumatic, no thrush, no pharyngeal erythema Neck: No thyromegaly, no cervical lymphadenopathy, trachea midline, supple Mouth: no lip lesion, mucus membranes moist Cardiovascular: S1S2 reg, no murmur, no edema Lungs: CTA bilateral, no rhonchi, no rales , no accessory muscle use Abdominal: soft, nontender to palpation, no guarding, no appreciable organomegaly, normal bowel sounds Ext: no gross muscle atrophy, left AKA, no contractures, left antecubital fossa nonfunctional AV graft with minimal palpable thrill Neuro: CN II-XI grossly intact, finger to nose within normal limits, Psych: Alert, oriented, appropriate affect - Labs CBC & Chem 7: 08/19/20 06:03 08/19/20 06:03 Labs: Abnormal Lab Results - Last 24 Hours (Table) 08/18/20 08/19/20 08/19/20 Range/Units 19:24 06:03 06:03 WBC 10.93 H (4.50-10.00) X 10*3/uL MCHC 31.2 L (32.0-37.0) g/dL RDW 15.4 H (11.5-14.5) % Sodium 133 L 134 L (137-145) mmol/L Potassium 5.5 H (3.5-5.1) mmol/L Chloride 93 L 94 L (98-107) mmol/L Anion Gap 15.10 H (4.00-12.00) mmol/L BUN 57 H 64.0 H (7-17) mg/dL Creatinine 5.51 H 5.9 H (0.52-1.04) mg/dL Est GFR (CKD-EPI)AfAm 7.8 L (60.0-200.0) Est GFR (CKD-EPI)NonAf 6.8 L (60.0-200.0) BUN/Creatinine Ratio 10.85 L (12.00-20.00) Ratio Glucose 163 H (74-99) mg/dL POC Glucose (mg/dL) (75-99) mg/dL Hemoglobin A1c (4.0-6.0) % Total Bilirubin 0.2 L (0.3-1.2) mg/dL AST 49 H 42 H (14-36) U/L Alkaline Phosphatase 171 H 162 H (38-126) U/L Albumin/Globulin Ratio 1.23 L (1.60-3.17) g/dL 08/19/20 08/19/20 Range/Units 06:03 11:39 WBC (4.50-10.00) X 10*3/uL MCHC (32.0-37.0) g/dL RDW (11.5-14.5) % Sodium (137-145) mmol/L Potassium (3.5-5.1) mmol/L Chloride (98-107) mmol/L Anion Gap (4.00-12.00) mmol/L BUN (7-17) mg/dL Creatinine (0.52-1.04) mg/dL Est GFR (CKD-EPI)AfAm (60.0-200.0) Est GFR (CKD-EPI)NonAf (60.0-200.0) BUN/Creatinine Ratio (12.00-20.00) Ratio Glucose (74-99) mg/dL POC Glucose (mg/dL) 145 H (75-99) mg/dL Hemoglobin A1c 6.8 H (4.0-6.0) % Total Bilirubin (0.3-1.2) mg/dL AST (14-36) U/L Alkaline Phosphatase (38-126) U/L Albumin/Globulin Ratio (1.60-3.17) g/dL Assessment and Plan Plan: Palpitations, possibly due to anxiety -Resolved Poor social situation -Case management and social work consult for possible placement ESRD -Continue with dialysis -Nephrology following Hyperkalemia, likely due to ESRD and ongoing dialysis -Continue to monitor for now Chronic conditions: A. fib, Type II DM, hypertension -Continue with insulin Levemir 10 units daily at bedtime with lispro sliding scale -Check A1c -Continue the remaining home medications DVT prophylaxis -Eliquis Discussed with: patient Anticipated discharge date: 1-[address]: possible SNF A total of 25 minutes was spent on the care of this complex patient more than 50% of the time was spent in counseling and care coordination.
[2020-08-19] MEDS: ALPRAZolam 1 MG TAB PO PRN ×2 (16:04→23:21)
[2020-08-19] MEDS: ACETAMINOPHEN TAB 325 MG TAB PO PRN ×2 (16:04→21:26)
[2020-08-19 17:27] LABS: Glucose,Whole Blood 138 mg/dL (75-99)
[2020-08-19 21:13] LABS: Glucose,Whole Blood 156 mg/dL (75-99)
[2020-08-19] MEDS: ATORVASTATIN 40 MG TAB PO SCH (21:23)
[2020-08-19] MEDS: INSULIN DETEMIR (LEVEMIR) 100 UNIT/ML SYR SQ SCH (21:26)
[2020-08-19 23:01] LABS: Glucose,Whole Blood 147 mg/dL (75-99)
[2020-08-20] MEDS: LEVOTHYROXINE 75 MCG TAB PO SCH (06:00)
[2020-08-20 07:08] LABS: Glucose,Whole Blood 95 mg/dL (75-99)
[2020-08-20] MEDS: CALCIUM ACETATE 667 MG TAB PO SCH ×3 (09:28→17:59)
[2020-08-20] MEDS: INSULIN ASPART (NovoLOG) 100 UNIT/ML VIAL SQ SCH ×4 (09:28→22:31)
[2020-08-20] MEDS: METHADONE 10 MG TAB PO SCH (09:29)
[2020-08-20] MEDS: FERROUS SULFATE 325 MG TAB PO SCH (09:29)
[2020-08-20] MEDS: hydrALAZINE HCL 50 MG TAB PO SCH ×3 (09:30→22:32)
[2020-08-20] MEDS: CHOLECALCIFEROL 25 MCG (1000 IU) TABLET PO SCH (09:30)
[2020-08-20] MEDS: APIXABAN 2.5 MG TABLET PO SCH ×2 (09:30→22:31)
[2020-08-20 11:53] LABS: Glucose,Whole Blood 164 mg/dL (75-99)
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
--- NOTE | 2020-08-20 15:27 | P.PN ---
Subjective Progress Note Date: 08/20/20 Principal diagnosis: need for placement No changes in patient's condition. No new symptoms. Objective - Vital Signs Vital signs: Vital Signs Temp 98.0 F 08/20/20 11:25 Pulse 73 08/20/20 11:25 Resp 18 08/20/20 11:25 BP 134/47 08/20/20 11:25 Pulse Ox 91 L 08/20/20 11:25 Intake & Output 08/19/20 08/20/20 08/20/20 18:59 06:59 18:59 Intake Total 112 240 Output Total 1999 Balance 1119 -1999 240 Intake: Oral 1120 240 Output: Hemodialysis 1999 Other: Voiding Method Toilet Toilet # Voids 2 1 - Exam General: non toxic, no distress, appears older than stated age, normal weight Derm: RLE lateral aspect ulcer with some surrounding erythema, no unusual ecchymoses, warm, dry Head: atraumatic, normocephalic, symmetric Eyes: EOMI, no lid lag, anicteric sclera, pupils equal round reactive to light ENT: Nose and ears atraumatic, no thrush, no pharyngeal erythema Neck: No thyromegaly, no cervical lymphadenopathy, trachea midline, supple Mouth: no lip lesion, mucus membranes moist Cardiovascular: S1S2 reg, no murmur, no edema Lungs: CTA bilateral, no rhonchi, no rales , no accessory muscle use Abdominal: soft, nontender to palpation, no guarding, no appreciable organomegaly, normal bowel sounds Ext: no gross muscle atrophy, left AKA, no contractures, left antecubital fossa nonfunctional AV graft with minimal palpable thrill Neuro: CN II-XI grossly intact, finger to nose within normal limits, Psych: Alert, oriented, appropriate affect - Labs CBC & Chem 7: 08/19/20 06:03 08/19/20 06:03 Labs: Abnormal Lab Results - Last 24 Hours (Table) 08/19/20 08/19/20 08/19/20 Range/Units 17:25 21:12 23:00 POC Glucose (mg/dL) 138 H 156 H 147 H (75-99) mg/dL 08/20/20 Range/Units 11:50 POC Glucose (mg/dL) 164 H (75-99) mg/dL Assessment and Plan Plan: Palpitations, possibly due to anxiety -Resolved Poor social situation -Case management and social work consult for possible placement ESRD -Continue with dialysis -Nephrology following Hyperkalemia, likely due to ESRD and ongoing dialysis -Continue to monitor for now Chronic conditions: A. fib, Type II DM, hypertension -Continue with insulin Levemir 10 units daily at bedtime with lispro sliding scale -Check A1c -Continue the remaining home medications DVT prophylaxis -Eliquis Discussed with: patient Anticipated discharge date: 1-[address]: possible SNF
[2020-08-20 17:14] LABS: Glucose,Whole Blood 176 mg/dL (75-99)
[2020-08-20 20:25] LABS: Glucose,Whole Blood 136 mg/dL (75-99)
[2020-08-20 21:11] VITALS: RESP 16
[2020-08-20] MEDS: ATORVASTATIN 40 MG TAB PO SCH (22:31)
[2020-08-20] MEDS: INSULIN DETEMIR (LEVEMIR) 100 UNIT/ML SYR SQ SCH (22:32)
[2020-08-20] MEDS: ALPRAZolam 1 MG TAB PO PRN (22:33)
[2020-08-20] MEDS: ACETAMINOPHEN TAB 325 MG TAB PO PRN (22:33)
[2020-08-21 06:01] VITALS: PULSE 69; TEMP 97.8
[2020-08-21] MEDS: LEVOTHYROXINE 75 MCG TAB PO SCH (06:09)
[2020-08-21 07:04] LABS: Glucose,Whole Blood 118 mg/dL (75-99)
[2020-08-21] MEDS: METHADONE 10 MG TAB PO SCH (08:12)
[2020-08-21] MEDS: APIXABAN 2.5 MG TABLET PO SCH (08:13)
[2020-08-21] MEDS: hydrALAZINE HCL 50 MG TAB PO SCH ×2 (08:13→18:07)
[2020-08-21] MEDS: CALCIUM ACETATE 667 MG TAB PO SCH ×3 (08:13→18:07)
[2020-08-21] MEDS: FERROUS SULFATE 325 MG TAB PO SCH (08:13)
[2020-08-21] MEDS: CHOLECALCIFEROL 25 MCG (1000 IU) TABLET PO SCH (08:13)
[2020-08-21] MEDS: INSULIN ASPART (NovoLOG) 100 UNIT/ML VIAL SQ SCH ×3 (08:15→18:03)
[2020-08-21 11:36] LABS: Glucose,Whole Blood 157 mg/dL (75-99)
[2020-08-21 11:44] VITALS: BP 143/74
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
--- NOTE | 2020-08-21 15:33 | PN ---
PROGRESS NOTE Patient denies any significant complaints. She will be dialyzed tomorrow. She is maintained on a Friday, , Friday schedule. PHYSICAL EXAMINATION: On examination today, blood pressure is 143/74, heart rate 69 per minute. Patient is afebrile. EXAMINATION OF THE HEART: S1, S2. EXAMINATION OF THE LUNGS: Bilateral breath sounds are heard. Abdomen is soft, nontender. Examination of lower extremities shows no evidence of edema. Right leg is currently wrapped. Patient has left AKA. [employer] exam grossly intact. LABS: Labs show potassium of 5.2 on 08/19/2020. Hemoglobin 13.1. ASSESSMENT: 1. End-stage renal disease, on hemodialysis on a Friday, , Friday schedule. 2. Chronic kidney disease mineral bone disorder. 3. Admitted for social reasons, currently looking for placement. 4. Right lower extremity wound being followed at the wound clinic as outpatient. We will consult in the hospital as well. PLAN: Hemodialysis in a.m. Consult Wound Care. MMODL / IJN: [id number] /
[2020-08-21] MEDS: ALPRAZolam 1 MG TAB PO PRN (18:03)
== END 2020-08-21 18:53 ==
LOC: EC 18:21 → 5NMEDONC 20:40 → INTOOBSV 20:40 → 5NMEDONC 21:45
PROVIDERS: ADMIT Internal Medicine; ATTEND Internal Medicine
DX: R00.2 Palpitations (principal); Z60.9 Problem related to social environment, unspecified; E11.51 Type 2 diabetes mellitus with diabetic peripheral angiopathy without gangrene; F03.90 Unspecified dementia, unspecified severity, without behavioral disturbance, psychotic disturbance, mood disturbance, and anxiety; I12.0 Hypertensive chronic kidney disease with stage 5 chronic kidney disease or end stage renal disease; I48.0 Paroxysmal atrial fibrillation; E11.22 Type 2 diabetes mellitus with diabetic chronic kidney disease; N18.6 End stage renal disease; Z99.2 Dependence on renal dialysis; Q61.4 Renal dysplasia; F17.200 Nicotine dependence, unspecified, uncomplicated; E78.5 Hyperlipidemia, unspecified; E87.5 Hyperkalemia; Z89.612 Acquired absence of left leg above knee; H35.30 Unspecified macular degeneration; L97.919 Non-pressure chronic ulcer of unspecified part of right lower leg with unspecified severity; M89.9 Disorder of bone, unspecified; F41.9 Anxiety disorder, unspecified; J30.2 Other seasonal allergic rhinitis; Z20.822 Contact with and (suspected) exposure to COVID-19; Z79.01 Long term (current) use of anticoagulants; Z79.899 Other long term (current) drug therapy; Z79.4 Long term (current) use of insulin; Z79.890 Hormone replacement therapy; Z88.5 Allergy status to narcotic agent; Z85.44 Personal history of malignant neoplasm of other female genital organs; Z86.14 Personal history of Methicillin resistant Staphylococcus aureus infection; Z79.891 Long term (current) use of opiate analgesic; Z95.828 Presence of other vascular implants and grafts; Z89.421 Acquired absence of other right toe(s)
CPT/HCPCS: 90970; 99285; 36415; 93005; 97161; 97165; 80053 ×2; 84443; 84484; 85025; 85027; 83036; 87635; G0378 ×3; S0109 ×3; 90935

== ENCOUNTER 2020-09-13 11:19 | Day surgery (SDC) | payer MEDICARE, OTHER ==
[2020-09-12 09:14] VITALS: BMI 25.2
[~2020-09-13 11:19] MED LIST changes: +DEXAMETHASONE SOD PHOSPHATE 4 MG/ML 1 ML VIAL IV ONE; -HYDROmorphone 0.5 MG/0.5 ML SYRINGE IVP PRN; -LACTATED RINGERS 1,000 ML IV SCH
[2020-09-13 12:42] LABS: Glucose,Whole Blood 113 mg/dL (75-99)
[2020-09-13] MEDS ORDERED: SODIUM CHLORIDE 0.9% 1,000 ML IV ONE (12:42)
[2020-09-13] MEDS: LACTATED RINGERS 1,000 ML IV SCH ×2 (12:42→12:45)
[2020-09-13 13:02] LABS: Anisocytosis Slight; Basophils # (A) 0.1 k/uL (0-0.2); Basophils % (A) 1 %; Eosinophils # (A) 0.2 k/uL (0-0.7); Eosinophils % (A) 2 %; Lymphocytes # (A) 2.5 k/uL (1.0-4.8); Lymphocytes % (A) 26 %; MCHC 34.3 g/dL (31.0-37.0); MCV 87.4 fL (80.0-100.0); Mean Platelet Volume 8.3; Monocytes # (A) 0.6 k/uL (0-1.0); Monocytes % (A) 6 %; Neutrophils # (A) 5.8 k/uL (1.3-7.7); Neutrophils % (A) 62 %; Platelet Count 180 k/uL (150-450); RDW 16.1 % (11.5-15.5); WBC 9.4 k/uL (3.8-10.6)
[2020-09-13 13:12] LABS: Albumin 3.7 g/dL (3.5-5.0); Potassium 5.6 mmol/L (3.5-5.1); Total Bilirubin 0.5 mg/dL (0.2-1.3); Total Protein 7.3 g/dL (6.3-8.2)
[2020-09-13] MEDS ORDERED: MIDAZOLAM 2 MG/2 ML VIAL IV ONE (13:39)
[2020-09-13] MEDS ORDERED: BUPIVACAINE (PF) 0.5% 30 ML VIAL SQ ONE ×2 (14:38)
[2020-09-13] MEDS ORDERED: LIDOCAINE 1% INJ 10MG/ML (20 ML MDV) SQ ONE ×2 (14:38)
[2020-09-13] MEDS ORDERED: SODIUM CHLORIDE 0.9% 500 ML 500 ML with HEPARIN SODIUM,PORCINE 2,000 UNIT IV ONE ×2 (14:43)
[2020-09-13] MEDS ORDERED: ceFAZolin 2,000 MG in SODIUM CHLORIDE 0.9% 500 ML IRRIGATION ONE (14:49)
--- NOTE | 2020-09-13 15:31 | P.ANPRN ---
Procedure Note - Anesthesia - Nerve Block Performed Right Supraclavicular Time Out Performed: Yes (13:38) Date of Procedure: 09/13/20 Procedure Start Time: : Procedure Stop Time: :52 Location of Patient: PreOp Indication: Acute Post-Operative Pain, Requested by Surgeon (Dr Redd) Sedation Type: Sedate with meaningful contact maintained Preparation: Sterile Prep Position: Supine Catheter: None Needle Types: Pajunk Needle Gauge: Other (see comment) (22g) Ultrasound used to visualize needle placement: Yes Ultrasound used to observe medication spread: Yes Injectate: 0.5% Ropivacaine (see comment for volume) (20cc) Blood Aspirated: No Pain Paresthesia on Injection Noted: No Resistance on Injection: Normal Image Stored and Saved: Yes Events: Uneventful and Well Tolerated
[2020-09-13] MEDS ORDERED: HEPARIN SODIUM,PORCINE 5,000 UNIT/ML 1 ML VIAL ONE (16:06)
[2020-09-13] MEDS ORDERED: PROPOFOL 10 MG/ML 20 ML VIAL IV ONE (16:06)
[2020-09-13] MEDS ORDERED: ROPIVACAINE 5 MG/ML 30 ML VIAL ONE (16:06)
[2020-09-13] MEDS ORDERED: MIDAZOLAM 2 MG/2 ML VIAL ONE (16:06)
[2020-09-13] MEDS ORDERED: fentaNYL (PF) 50 MCG/ML 2 ML AMP ONE (16:06)
[2020-09-13] MEDS ORDERED: KETAMINE 10 MG/ML 20 ML VIAL ONE (16:06)
--- NOTE | 2020-09-13 16:09 | P.OP ---
Date of Procedure: 09/13/20 Description of Procedure: Preoperative diagnosis: [End-stage renal disease, thrombosed left upper extremity AV fistula] Postoperative diagnosis: Same, very small cephalic Procedure: [Right upper extremity brachiobasilic AV fistula creation] Surgeon: Abby Redd D.O. EBL: [20 mL] IV fluids: [See records] Urine output: Not measured[] Drains: [None] Complications: [None immediately apparent] Condition: [Stable to recovery] Operative indication and findings: [The patient is a 70-year-old female with end-stage renal disease who initially presented with a malfunctioning left upper extremity AV fistula. She had surgical revision and then subsequently had thrombosis of this and required a tunneled dialysis catheter placement. 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 Initially on ultrasound for mapping of her right upper extremity she had reportedly adequate size cephalic and basilic veins. Upon my evaluation in the operative suite with the ultrasound and direct visualization, the appropriate size cephalic vein that the midportion of the upper arm, at the level of the antecubital fossa and for many centimeters it is very small, under 1.5 mm therefore the time of the procedure was decided to go forward with a brachiobasilic fistula creation given the adequate sized basilic vein visualized] Procedure in detail: [The patient was taken to the operative suite and placed in supine position after appropriate regional anesthesia was performed. A right upper extremity was prepped and draped in usual sterile fashion. A preprocedure timeout was performed, all parties were in agreement. The ultrasound was utilized in both the cephalic and basilic veins were visualized. The cephalic vein has a long course of being sub 2 millimeters prior to dilating at the level of the mid upper arm. The basilic vein appeared adequate in size. A transverse incision was made proximal to the antecubital fossa after appropriate markings and visualization. The subcuticular tissues divided with electrocautery. Dissection was carried down to the level of the brachial artery. It was dissected free proximally and distally and encircled with vessel loops. Dissection was carried out to the medial portion of the arm where the basilic vein was identified. It was dissected free proximally and distally for its course. The patient was heparinized. That point the vein was transected at the distal most portion and the remaining vessels suture ligated with 6-0 silk. The vein was then serially dilated to 3.5 mm. It was also dilated with heparinized saline and marked. At that point flow was occluded through the artery with the vessel loops. An incision was made and enlarged with the Saini scissors. An anastomosis created with 7-0 Prolene prior to completion of the anastomosis the artery and vein were allowed to backbleed clearing the air from the system. The anastomosis was completed. Flow was then resumed through the system with good palpable pulse proximally and distally to the anastomosis. There was a good thrill although somewhat weak through the level of the vein. The proximal portions were dissected free around the vein and a large branching vein was suture ligated and left in place. There was a good thrill time procedure the palpable radial pulse at the conclusion. The area was irrigated and 3-0 Vicryl was placed in subcutaneous tissue and 4-0 Monocryl at the level of skin. The patient was awakened from anesthesia and transferred to recovery in stable condition having tolerated her procedure well.] Plan - Discharge Summary Discharge Rx Participant: No New Discharge Prescriptions: No Action Insulin Degludec [Tresiba Flextouch U-100] 10 units SQ DAILY Omeprazole 20 mg PO DAILY Losartan Potassium 50 mg PO DAILY Lidocaine-Prilocaine Cream [Emla Cream 2.5%/2.5%] 1 applic TOPICAL TUTHSA Lidocaine 5% Oint [Xylocaine 5% Oint] 1 applic TOPICAL BID PRN PRN Reason: Pain Levothyroxine Sodium [Synthroid] 150 mcg PO HS Levocetirizine Dihydrochloride 5 mg PO DAILY PRN PRN Reason: Allergy Symptoms hydrALAZINE HCL [Apresoline] 50 mg PO TID Carvedilol [Coreg] 3.125 mg PO BID Atorvastatin [Lipitor] 40 mg PO HS Calcium Acetate [PhosLo] 2 cap PO AC-TID ALPRAZolam [Xanax] 1 mg PO Q8H PRN PRN Reason: Anxiety Nephro-Ann Tab 1 tab PO DAILY Ketoconazole [Nizoral A-D] 1 applic TOPICAL Q72H Methadone HCl [Methadone Intensol] 120 mg PO DAILY Cholecalciferol [Vitamin D3 (25 Mcg = 1000 Iu)] 2,000 unit PO DAILY Insulin Lispro [humaLOG Kwikpen] See Protocol SQ AC-TID Furosemide [Lasix] 20 mg PO DAILY PRN PRN Reason: Edema Acetaminophen Tab [Tylenol] 650 mg PO Q6HR PRN tab PRN Reason: Mild Pain Or Fever > 100.5 Methyl Salicylate/Menthol [Salonpas Patch] 1 patch TOPICAL DAILY Discharge Medication List ALPRAZolam [Xanax] 1 mg PO Q8H PRN 04/18/20 [History] Atorvastatin [Lipitor] 40 mg PO HS 04/18/20 [History] Calcium Acetate [PhosLo] 2 cap PO AC-TID 04/18/20 [History] Carvedilol [Coreg] 3.125 mg PO BID 04/18/20 [History] Insulin Degludec [Tresiba Flextouch U-100] 10 units SQ DAILY 04/18/20 [History] Ketoconazole [Nizoral A-D] 1 applic TOPICAL Q72H 04/18/20 [History] Levocetirizine Dihydrochloride 5 mg PO DAILY PRN 04/18/20 [History] Levothyroxine Sodium [Synthroid] 150 mcg PO HS 04/18/20 [History] Lidocaine 5% Oint [Xylocaine 5% Oint] 1 applic TOPICAL BID PRN 04/18/20 [History] Lidocaine-Prilocaine Cream [Emla Cream 2.5%/2.5%] 1 applic TOPICAL TUTHSA 04/18/20 [History] Losartan Potassium 50 mg PO DAILY 04/18/20 [History] Methadone HCl [Methadone Intensol] 120 mg PO DAILY 04/18/20 [History] Nephro-Ann Tab 1 tab PO DAILY 04/18/20 [History] Omeprazole 20 mg PO DAILY 04/18/20 [History] hydrALAZINE HCL [Apresoline] 50 mg PO TID 04/18/20 [History] Cholecalciferol [Vitamin D3 (25 Mcg = 1000 Iu)] 2,000 unit PO DAILY 05/20/20 [History] Furosemide [Lasix] 20 mg PO DAILY PRN 05/20/20 [History] Insulin Lispro [humaLOG Kwikpen] See Protocol SQ AC-TID 05/20/20 [History] Acetaminophen Tab [Tylenol] 650 mg PO Q6HR PRN tab 05/23/20 [Rx] Methyl Salicylate/Menthol [Salonpas Patch] 1 patch TOPICAL DAILY 09/12/20 [History] Follow up Appointment(s)/Referral(s): Abby Redd DO [STAFF PHYSICIAN] - 2 Weeks Discharge Disposition: HOME WITH HOME HEALTH SERVICES
[2020-09-13 16:12] VITALS: TEMP 97.8
[2020-09-13 17:06] LABS: Glucose,Whole Blood 112 mg/dL (75-99)
[2020-09-13 17:25] VITALS: RESP 16
[2020-09-13 17:35] VITALS: BP 143/64; PULSE 71
== END 2020-09-13 18:15 | disposition home health service (06) ==
LOC: OR 11:19
PROVIDERS: ATTEND Surgery
DX: T82.868A Thrombosis due to vascular prosthetic devices, implants and grafts, initial encounter (principal); I12.0 Hypertensive chronic kidney disease with stage 5 chronic kidney disease or end stage renal disease; N18.6 End stage renal disease; Z99.2 Dependence on renal dialysis; I72.1 Aneurysm of artery of upper extremity; I48.91 Unspecified atrial fibrillation; H54.7 Unspecified visual loss; E78.5 Hyperlipidemia, unspecified; E07.9 Disorder of thyroid, unspecified; F03.90 Unspecified dementia, unspecified severity, without behavioral disturbance, psychotic disturbance, mood disturbance, and anxiety; F17.200 Nicotine dependence, unspecified, uncomplicated; Z97.2 Presence of dental prosthetic device (complete) (partial); C51.9 Malignant neoplasm of vulva, unspecified; Z89.612 Acquired absence of left leg above knee; Z90.89 Acquired absence of other organs; Z79.890 Hormone replacement therapy; Z79.4 Long term (current) use of insulin; Z79.02 Long term (current) use of antithrombotics/antiplatelets; Z79.899 Other long term (current) drug therapy; Z88.5 Allergy status to narcotic agent
CPT/HCPCS: 64415; 76942; 80053; 85025; 36821; J2250; J1644; J1100; J2405; J0690; J2001; J3010; J2795; J2704

== ENCOUNTER 2020-12-06 12:09 | Day surgery (SDC) | payer MEDICARE, OTHER ==
[2020-12-05 14:17] VITALS: BMI 24.9
[~2020-12-06 12:09] MED LIST changes: +HYDROmorphone 0.5 MG/0.5 ML SYRINGE IVP PRN; +LACTATED RINGERS 1,000 ML IV SCH; +MIDAZOLAM 2 MG/2 ML VIAL IV PRN
--- NOTE | 2020-12-06 12:49 | P.GSHP ---
History of Present Illness H&P Date: 12/06/20 Raquel is a 70-year-old female in today for her second stage right upper extremity basilic vein transposition for dialysis access. Previous visits for this have been postponed due to her inability to make the appointments for the surgery. She denies any fevers, chills, nausea, vomiting or issues otherwise Past Medical History Past Medical History: Atrial Fibrillation, Cancer, Diabetes Mellitus, Hyperlipidemia, Hypertension, Renal Disease, Vascular Disorder Additional Past Medical History / Comment(s): Hx vulva cancer, multicystic kidneys, ESRD, left lower leg amputation-no prosthesis-uses w/c-able to pivot transfer with asst, Macular Degeneration/blind, chronic pain, chronic wound to right leg had fall with hematoma-healed. hemodialysis ,, 3 hr 15 min History of Any Multi-Drug Resistant Organisms: MRSA Date of last positivie culture/infection: 2015 MDRO Source:: left leg Past Surgical History: Adenoidectomy, Tonsillectomy Additional Past Surgical History / Comment(s): Left arm dialysis graft, left above the knee amputation, surgery for Macular Degeneration,port left chest Past Anesthesia/Blood Transfusion Reactions: No Reported Reaction Additional Past Anesthesia/Blood Transfusion Reaction / Comment(s): no problems with prior blood transfusions Smoking Status: Current every day smoker - Past Family History Mother Additional Family Medical History / Comment(s): bleeding esophagus at age 34 Father Additional Family Medical History / Comment(s): at age 93 family Family Medical History: Unable to Obtain Medications and Allergies Home Medications Medication Instructions Recorded Confirmed Type ALPRAZolam [Xanax] 1 mg PO Q8H PRN 04/18/20 12/06/20 History Atorvastatin [Lipitor] 40 mg PO HS 04/18/20 12/05/20 History Calcium Acetate [PhosLo] 2 cap PO AC-TID 04/18/20 12/05/20 History Carvedilol [Coreg] 3.125 mg PO TUTHSA 04/18/20 12/05/20 History Insulin Degludec [Tresiba 10 units SQ QAM 04/18/20 12/05/20 History Flextouch U-100] Levocetirizine Dihydrochloride 5 mg PO DAILY PRN 04/18/20 12/05/20 History Levothyroxine Sodium [Synthroid] 150 mcg PO QAM 04/18/20 12/05/20 History Losartan Potassium 50 mg PO DAILY 04/18/20 12/05/20 History Methadone HCl [Methadone Intensol] 120 mg PO HS 04/18/20 12/05/20 History Nephro-Ann Tab 1 tab PO DAILY 04/18/20 12/05/20 History Omeprazole 20 mg PO HS 04/18/20 12/05/20 History hydrALAZINE HCL [Apresoline] 50 mg PO TID 04/18/20 12/05/20 History Cholecalciferol [Vitamin D3 (25 2,000 unit PO DAILY 05/20/20 12/05/20 History Mcg = 1000 Iu)] Furosemide [Lasix] 20 mg PO SUMOWEFR PRN 05/20/20 12/05/20 History Insulin Lispro [humaLOG Kwikpen] See Protocol SQ AC-TID PRN 05/20/20 12/05/20 History Acetaminophen Tab [Tylenol] 650 mg PO Q6HR PRN tab 05/23/20 12/05/20 Rx Apixaban [Eliquis] 2.5 mg PO BID 12/05/20 12/05/20 History Carvedilol [Coreg] 6.25 mg PO HS 12/05/20 12/05/20 History Carvedilol [Coreg] 6.25 mg PO SUMOWEFR 12/05/20 12/05/20 History amLODIPine [Norvasc] 5 mg PO DAILY PRN 12/05/20 12/05/20 History Allergies Allergy/AdvReac Type Severity Reaction Status Date / Time pentazocine [From Kimmie] AdvReac Unknown Verified 12/06/20 12:45 Surgical - Exam Genitals a pleasant cooperative female in no acute distress in a wheelchair. HEENT is normocephalic, atraumatic, extracted motion intact. Heart is irregularly irregular. Lungs are clear bilaterally. Abdomen is soft. Left upper extremity with surgical scarring. Palpable radial and ulnar pulses. Right upper extremity with palpable thrill throughout basilic vein. Left lower extremity below-knee amputation. Affect. Cranial nerves II-12 grossly intact Assessment and Plan Assessment: End-stage renal disease Plan: Plan for today with right upper extremity basilic vein transposition, second stage. Questions are answered. Patient seemingly understands and is willing to proceed as such.
[2020-12-06] MEDS ORDERED: MIDAZOLAM 2 MG/2 ML VIAL IV ONE (13:14)
[2020-12-06 13:19] LABS: Glucose,Whole Blood 116 mg/dL (75-99)
[2020-12-06 13:23] LABS: Basophils # (A) 0.1 k/uL (0-0.2); Basophils % (A) 1 %; Eosinophils # (A) 0.4 k/uL (0-0.7); Eosinophils % (A) 4 %; HCT 35.8 % (34.0-46.0); Hypochromasia Slight; Lymphocytes # (A) 2.4 k/uL (1.0-4.8); Lymphocytes % (A) 26 %; MCH 31.8 pg (25.0-35.0); MCHC 33.5 g/dL (31.0-37.0); MCV 94.7 fL (80.0-100.0); Mean Platelet Volume 7.7; Monocytes # (A) 0.7 k/uL (0-1.0); Monocytes % (A) 7 %; Neutrophils # (A) 5.3 k/uL (1.3-7.7); Neutrophils % (A) 58 %; Platelet Count 187 k/uL (150-450); RBC 3.78 m/uL (3.80-5.40); RDW 15.9 % (11.5-15.5); WBC 9.2 k/uL (3.8-10.6)
[2020-12-06] MEDS ORDERED: fentaNYL (PF) 50 MCG/ML 2 ML AMP ONE (13:32)
[2020-12-06] MEDS ORDERED: PROPOFOL 10 MG/ML 20 ML VIAL IV ONE (13:32)
[2020-12-06] MEDS ORDERED: LIDOCAINE 1% INJ 10MG/ML (20 ML MDV) ONE (13:32)
[2020-12-06] MEDS ORDERED: HEPARIN SODIUM,PORCINE 5,000 UNIT/ML 1 ML VIAL ONE (13:32)
[2020-12-06] MEDS ORDERED: MIDAZOLAM 2 MG/2 ML VIAL ONE (13:32)
[2020-12-06] MEDS ORDERED: ROPIVACAINE 5 MG/ML 30 ML VIAL ONE (13:32)
[2020-12-06 13:37] LABS: Albumin 3.8 g/dL (3.5-5.0); Calcium 8.8 mg/dL (8.4-10.2); Potassium 5.3 mmol/L (3.5-5.1); Total Bilirubin 0.4 mg/dL (0.2-1.3); Total Protein 7.2 g/dL (6.3-8.2)
--- NOTE | 2020-12-06 13:39 | P.ANPRN ---
Procedure Note - Anesthesia - Nerve Block Performed Right Infraclavicular Time Out Performed: Yes (1313) Date of Procedure: 12/06/20 Procedure Start Time: 13:13 Procedure Stop Time: :24 Location of Patient: PreOp Indication: Requested by Surgeon Specifically requested for management of pain by DrIdalia: Abby Redd Sedation Type: Sedate with meaningful contact maintained Preparation: Sterile Prep Position: Supine Catheter: None Needle Gauge: 21 (100 mm) Ultrasound used to visualize needle placement: Yes Ultrasound used to observe medication spread: Yes Injectate: 0.5% Ropivacaine (see comment for volume) (30cc) Narrative: Block was performed for surgical anesthesia 1% lidocaine 10 mL was infiltrated for the intercostobrachial nerve block Blood Aspirated: No Pain Paresthesia on Injection Noted: No Resistance on Injection: Normal Image Stored and Saved: Yes Events: Uneventful and Well Tolerated
[2020-12-06] MEDS ORDERED: LIDOCAINE 1% INJ 10MG/ML (20 ML MDV) SQ ONE (14:18)
[2020-12-06] MEDS ORDERED: BUPIVACAINE (PF) 0.5% 30 ML VIAL SQ ONE (14:18)
[2020-12-06] MEDS ORDERED: ceFAZolin 2 GM in SODIUM CHLORIDE 0.9% 500 ML 500 ML IRRIGATION ONE (14:19)
[2020-12-06] MEDS ORDERED: HEPARIN SODIUM,PORCINE 2,000 UNIT in SODIUM CHLORIDE 0.9% 500 ML 500 ML IRRIGATION ONE (14:19)
[2020-12-06] MEDS ORDERED: IV FLUID CONTINUATION 1,000 ML IV ONE (17:19)
--- NOTE | 2020-12-06 17:27 | P.OP ---
Date of Procedure: 12/06/20 Description of Procedure: Preoperative diagnosis: End-stage renal disease Postoperative diagnosis: Same Procedure: [Right upper extremity second stage basilic vein transposition] Surgeon: Abby Redd D.O. EBL: [75 mL] IV fluids: [See records] Urine output: [Not measured] Anesthesia: Monitored anesthesia care with local and regional Drains: [None] Complications: [None immediately apparent] Condition: [Stable to recovery] Operative indication and findings: [The patient is a 70-year-old female with end-stage renal disease who has previously had all grafting of her left side, she ended up developing an arterial aneurysm and needing an interposition graft of her artery for this therefore no further dialysis access was entertained on that side. Previously a right upper extremity brachial basilic fistula was created and found to be appropriate for transposition. Risks and benefits were discussed. The patient seemingly understood and was willing to proceed as such.] Procedure in detail: [The patient was taken to the operative suite after regional anesthesia preoperatively. She was positioned supine with the arm outstretched near 90 and the right upper extremity was prepped and draped in usual sterile fashion. A preprocedure timeout was performed with all parties under agreement. A longitudinal skin incision was made at the level of the elbow where the thrill was palpated and deepened through subcutaneous tissue to the fat to the level of the basilic vein was identified at the level of the antecubital fossa. There was significant areas of scar tissue from the previous surgery. The basilic vein was encircled with vessel loop and dissected free proximally all the way up to the axilla. Any branches were isolated ligated and divided. The overlying nerve branches were preserved. The incision was carried out in the same course of the vein. Attention was then directed towards the area of the anastomosis did appear that there was adequate inflow from the previous anastomosis and adequate appearing length. At that point a curvilinear tunnel was used to create a tunnel in the anterior upper aspect of the arm from axilla or fossa and the antecubital area to facilitate venipuncture. The patient was then heparinized. The basilic vein was then divided with enough room to allow for a [id number] anastomosis. It had previously been marked. The vein is introduced into the tunnel avoiding any kinks or twists. The vein is spatulated to make appropriate sizing and an anastomosis was created with running 6-0 Prolene. 2 sutures were utilized in order to not constrict the anastomosis. The vein was not [place] part of completion and the artery was forward bled. The whole area was irrigated and interrupted suture of 6-0 Prolene was used for hemostasis. Hemostasis appeared adequate. There is excellent thrill in the vein and palpable in the skin. There does not appear to be any twisting. There was good augmentation. There is an excellent radial pulse at the conclusion of the anastomosis. The wound was then irrigated copiously and interrupted 3-0 Vicryl was used in the subcutaneous tissues. The skin was reapproximated with running 4-0 Monocryl in subcuticular fashion. At the level of the antecubital incision, there was a superficial vein that was bleeding therefore an interrupted 3-0 nylon was placed. A dressing was placed and there was a good palpable thrill through the fistula. The patient was transferred to recovery in stable condition having tolerated her procedure well]
[2020-12-06 17:30] VITALS: TEMP 97.1
--- NOTE | 2020-12-06 17:31 | P.DS ---
Providers Attending physician: Abby Redd DO Primary care physician: Souleymane Shah [place] Hospital Course: The patient is a 70-year-old female with end-stage renal disease who came to the hospital for second stage basilic vein transposition. She apparently started this procedure well and is planning for discharge after her PACU recovery. Patient Condition at Discharge: Fair Plan - Discharge Summary Discharge Rx Participant: No New Discharge Prescriptions: No Action Insulin Degludec [Tresiba Flextouch U-100] 10 units SQ QAM Omeprazole 20 mg PO HS Losartan Potassium 50 mg PO DAILY Levothyroxine Sodium [Synthroid] 150 mcg PO QAM Levocetirizine Dihydrochloride 5 mg PO DAILY PRN PRN Reason: Allergy Symptoms hydrALAZINE HCL [Apresoline] 50 mg PO TID Carvedilol [Coreg] 3.125 mg PO TUTHSA Atorvastatin [Lipitor] 40 mg PO HS Calcium Acetate [PhosLo] 2 cap PO AC-TID ALPRAZolam [Xanax] 1 mg PO Q8H PRN PRN Reason: Anxiety Nephro-Ann Tab 1 tab PO DAILY Methadone HCl [Methadone Intensol] 120 mg PO HS Cholecalciferol [Vitamin D3 (25 Mcg = 1000 Iu)] 2,000 unit PO DAILY Insulin Lispro [humaLOG Kwikpen] See Protocol SQ AC-TID PRN PRN Reason: scale Furosemide [Lasix] 20 mg PO SUMOWEFR PRN PRN Reason: Edema Acetaminophen Tab [Tylenol] 650 mg PO Q6HR PRN tab PRN Reason: Mild Pain Or Fever > 100.5 Carvedilol [Coreg] 6.25 mg PO SUMOWEFR Carvedilol [Coreg] 6.25 mg PO HS amLODIPine [Norvasc] 5 mg PO DAILY PRN PRN Reason: systolic b/p >150 Apixaban [Eliquis] 2.5 mg PO BID Discharge Medication List ALPRAZolam [Xanax] 1 mg PO Q8H PRN 04/18/20 [History] Atorvastatin [Lipitor] 40 mg PO HS 04/18/20 [History] Calcium Acetate [PhosLo] 2 cap PO AC-TID 04/18/20 [History] Carvedilol [Coreg] 3.125 mg PO TUTHSA 04/18/20 [History] Insulin Degludec [Tresiba Flextouch U-100] 10 units SQ QAM 04/18/20 [History] Levocetirizine Dihydrochloride 5 mg PO DAILY PRN 04/18/20 [History] Levothyroxine Sodium [Synthroid] 150 mcg PO QAM 04/18/20 [History] Losartan Potassium 50 mg PO DAILY 04/18/20 [History] Methadone HCl [Methadone Intensol] 120 mg PO HS 04/18/20 [History] Nephro-Ann Tab 1 tab PO DAILY 04/18/20 [History] Omeprazole 20 mg PO HS 04/18/20 [History] hydrALAZINE HCL [Apresoline] 50 mg PO TID 04/18/20 [History] Cholecalciferol [Vitamin D3 (25 Mcg = 1000 Iu)] 2,000 unit PO DAILY 05/20/20 [History] Furosemide [Lasix] 20 mg PO SUMOWEFR PRN 05/20/20 [History] Insulin Lispro [humaLOG Kwikpen] See Protocol SQ AC-TID PRN 05/20/20 [History] Acetaminophen Tab [Tylenol] 650 mg PO Q6HR PRN tab 05/23/20 [Rx] Apixaban [Eliquis] 2.5 mg PO BID 12/05/20 [History] Carvedilol [Coreg] 6.25 mg PO HS 12/05/20 [History] Carvedilol [Coreg] 6.25 mg PO SUMOWEFR 12/05/20 [History] amLODIPine [Norvasc] 5 mg PO DAILY PRN 12/05/20 [History] Follow up Appointment(s)/Referral(s): Abby Redd DO [STAFF PHYSICIAN] - 2 Weeks Activity/Diet/Wound Care/Special Instructions: May remove outer dressing in 2 days. There is skin glue and one suture underneath. Follow-up in the office in 2 weeks. May resume Eliquis with beginning tomorrow, 12/07, at the evening dose. May resume bathing as previous in 48 hours. Discharge Disposition: HOME SELF-CARE
[2020-12-06 17:38] VITALS: RESP 16
[2020-12-06 17:45] LABS: Glucose,Whole Blood 116 mg/dL (75-99)
[2020-12-06 18:19] VITALS: BP 142/59; PULSE 66
== END 2020-12-06 18:48 | disposition home or self-care (01) ==
LOC: OR 12:09
PROVIDERS: ATTEND Surgery
DX: I12.0 Hypertensive chronic kidney disease with stage 5 chronic kidney disease or end stage renal disease (principal); E11.22 Type 2 diabetes mellitus with diabetic chronic kidney disease; N18.6 End stage renal disease; Z99.2 Dependence on renal dialysis; E78.5 Hyperlipidemia, unspecified; I48.91 Unspecified atrial fibrillation; H35.30 Unspecified macular degeneration; F17.210 Nicotine dependence, cigarettes, uncomplicated; G89.29 Other chronic pain; Z79.899 Other long term (current) drug therapy; Z79.4 Long term (current) use of insulin; Z79.01 Long term (current) use of anticoagulants; F41.9 Anxiety disorder, unspecified; K21.9 Gastro-esophageal reflux disease without esophagitis; E11.51 Type 2 diabetes mellitus with diabetic peripheral angiopathy without gangrene; Z85.89 Personal history of malignant neoplasm of other organs and systems
CPT/HCPCS: 36832; 64415; 76942; 80053; 85025; J2250; J1644; J1100; J0690; J2405; J2001; J3010; J2795; J2704

== ENCOUNTER → 2021-11-16 | Outpatient (CLI) | payer MEDICARE, OTHER ==
--- NOTE | 2021-11-27 11:16 | PE ---
Nuclear medicine PET/CT HISTORY: C 51.9, vulvar carcinoma, initial Patient received 10.6 mCi F-18 FDG intravenously and delayed scanning was performed from the skull ba se to the mid thighs. A localization and attenuation correction CT scan was performed. No comparisons Average mediastinal uptake SUV 2.4, average liver uptake SUV 2.6 Chest and neck: No suspicious uptake. No evident lung mass. No mediastinal, axillary, hilar adenopath y, there is no evident supraclavicular or cervical neck adenopathy. Uptake at the level of the vocal cords is likely physiologic. Coronary artery calcifications present. 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 No pleural pericardial effusion. ABDOMEN: No evident liver mass. No retroperitoneal adenopathy. Kidneys show multiple associated cysti c foci, difficult to exclude nonobstructive calculus, lesions within the kidneys are not entirely sim ple cystic. Uptake along the bowel is felt likely to be physiologic. No pelvic adenopathy. There is s ome uptake at the level of the vulva, SUV 4.3. Some mild uptake along the musculature of the right pe lvic sidewall is asymmetric but could be physiologic. Small umbilical hernia contains fat. Osseous structures show no suspicious uptake. IMPRESSION: Findings consistent with patient's history as described. Indeterminate renal lesions.
== END | disposition home or self-care (01) ==
LOC: RADPETMAIN 12:54
PROVIDERS: ATTEND Student in an Organized Health Care Education/Training Program
DX: C51.9 Malignant neoplasm of vulva, unspecified (principal)
CPT/HCPCS: 78815; A9552

== ENCOUNTER 2022-01-01 13:52 | Inpatient (IN) | payer MEDICARE, OTHER ==
--- NOTE | 2022-01-01 17:11 | ED ---
Recheck HPI - General Chief Complaint: Recheck/Abnormal Lab/Rx Stated Complaint: elevated heart rate, cough Time Seen by Provider: 01/01/22 16:54 Source: patient, RN notes reviewed Mode of arrival: ambulatory Limitations: no limitations - History of Present Illness Initial Comments: This is a 71-year-old female who presents to the emergency department for an elevated heart rate and a cough. Patient has been on hemodialysis for the last couple of years and is a patient of Dr. Barrientos. She was supposed to have hemodialysis today, however she was found to have an elevated heart rate and a cough, and was subsequently told that she could not receive dialysis today. Currently receives dialysis every other day, for a total of 3 times a week. Her daughter states that she does not take Coreg on the day she has her hemodialysis, and she is also given minodrine during the dialysis, which lowers her heart rate. She believes that the main reason she was not able to get dialysis was because she is ill, not due to the heart rate. Additionally, missing the dialysis makes her more ill. For the last 3-4 days, she has had coughing, congestion, and some shortness of breath. Her daughter states that she took an at home COVID test 2 days ago which was negative. She also started her on Keflex last night. She is a daily smoker and was recently diagnosed with COPD. Her provider did start her on Trelegy, however she is refusing to take it. Patient noted to have a low oxygen saturation on examination, she is not on oxygen at home. Her daughter states that she did have a total vulvectomy last month, and saw the surgeon for a follow up last week, and was told that everything was healing well. Denies any fevers, chills, sore throat, chest pain, palpitations, abdominal pain, nausea, vomiting, diarrhea, back pain, or headaches. MD Complaint: other (tachycardia, cough) - Related Data Home Medications Medication Instructions Recorded Confirmed ALPRAZolam [Xanax] 1 mg PO Q8H PRN 04/18/20 01/01/22 Atorvastatin [Lipitor] 40 mg PO HS 04/18/20 01/01/22 Calcium Acetate [PhosLo] 1,334 mg PO TID-W/MEALS 04/18/20 01/01/22 Insulin Degludec [Tresiba 10 units SQ DAILY 04/18/20 01/01/22 Flextouch U-100 Pen] Levocetirizine Dihydrochloride 5 mg PO DAILY 04/18/20 01/01/22 Levothyroxine Sodium [Synthroid] 150 mcg PO DAILY 04/18/20 01/01/22 Methadone HCl [Methadone Intensol] 1 dose PO DAILY 04/18/20 01/01/22 Omeprazole 20 mg PO DAILY 04/18/20 01/01/22 carvediloL [Coreg] 3.125 mg PO SUMOWEFR@0900 04/18/20 01/01/22 Cholecalciferol [Vitamin D3 (25 50 mcg PO DAILY 05/20/20 01/01/22 Mcg = 1000 Iu)] Furosemide [Lasix] 20 mg PO SUMOWEFR 05/20/20 01/01/22 Insulin Lispro [humaLOG Kwikpen] See Protocol SQ AC-TID 05/20/20 01/01/22 Apixaban [Eliquis] 2.5 mg PO BID 12/05/20 01/01/22 Ammonium Lactate Lotion 1 applic TOPICAL BID PRN 08/28/21 01/01/22 [Lac-Hydrin 12% Lotion] Lidocaine 5% Oint [Xylocaine 5% 1 applic TOPICAL BID 08/28/21 01/01/22 Oint] Vit C/E/Zn/Coppr/Lutein/Zeaxan 2 cap PO DAILY 08/28/21 01/01/22 [Preservision Areds 2 Softgel] Cephalexin [Keflex] 500 mg PO DIRECTED 01/01/22 01/01/22 Fluticasone/Umeclidin/Vilanter 1 puff INHALATION RT-DAILY 01/01/22 01/01/22 [Trelegy Ellipta 200-62.5-25] Losartan [Cozaar] 25 mg PO DAILY 01/01/22 01/01/22 Midodrine [ProAmatine] 5 mg PO TUTHSA PRN 01/01/22 01/01/22 Nephro-Ann 0.8mg 1 cap PO DAILY 01/01/22 01/01/22 amLODIPine [Norvasc] 5 mg PO TUTHSA PRN 01/01/22 01/01/22 carvediloL [Coreg] 3.125 mg PO HS 01/01/22 01/01/22 hydrALAZINE HCL 25 mg PO TID 01/01/22 01/01/22 Allergies Allergy/AdvReac Type Severity Reaction Status Date / Time pentazocine [From Talwin] AdvReac Unknown Verified 01/01/22 18:57 Review of Systems ROS Statement: Those systems with pertinent positive or pertinent negative responses have been documented in the HPI. ROS Other: All systems not noted in ROS Statement are negative. 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 hemodialysis ,,SA 3 hr 15 min History of Any Multi-Drug Resistant Organisms: MRSA Date of last positivie culture/infection: 2015 MDRO Source:: left leg Past Surgical History: Adenoidectomy, Tonsillectomy Additional Past Surgical History / Comment(s): Left arm dialysis graft, left above the knee amputation, surgery for Macular Degeneration,port left chest Past Anesthesia/Blood Transfusion Reactions: No Reported Reaction Additional Past Anesthesia/Blood Transfusion Reaction / Comment(s): no problems with prior blood transfusions Past Psychological History: Anxiety Smoking Status: Current every day smoker Past Alcohol Use History: None Reported Past Drug Use History: None Reported - Past Family History Mother Additional Family Medical History / Comment(s): bleeding esophagus at age 34 Father Additional Family Medical History / Comment(s): at age 93 family Family Medical History: Unable to Obtain General Exam Limitations: no limitations General appearance: alert, in no apparent distress Head exam: Present: atraumatic Respiratory exam: Present: wheezes, rales, decreased breath sounds, prolonged expiratory Cardiovascular Exam: Present: normal rhythm, tachycardia, normal heart sounds. Absent: systolic murmur, diastolic murmur, rubs, gallop, clicks Neurological exam: Present: alert, oriented X3, CN II-XII intact Psychiatric exam: Present: normal affect, normal mood Skin exam: Present: warm, dry, intact, normal color. Absent: rash Course Vital Signs 08/02/1401/01/22 01/01/22 14:46 18:44 21:41 Temperature 97.9 F 100.3 F H Pulse Rate 134 H 122 H 73 Respiratory 18 18 21 Rate Blood Pressure 113/62 127/80 125/76 O2 Sat by Pulse 80 L 96 99 Oximetry Medical Decision Making - Medical Decision Making This is a 71-year-old female who presents to the emergency department for tachycardia and upper respiratory symptoms. Lab work reveals marked leukocytosis. She also has a marked elevation in creatinine and hyperkalemia, likely secondary to missing dialysis today. With the leukocytosis and tachycardia, patient meets SIRS criteria. There is no source of infection identified at this time. Patient is not currently receiving IV fluids due to possible fluid overload. She is also not hypoperfused. Patient started on broad-spectrum antibiotics with vancomycin and cefepime with blood cultures obtained prior. She was given calcium gluconate and Kayexalate for hyperkalemia. I also spoke with Dr. Barrientos, nephrology, who advised that the patient receive dialysis tonight and tomorrow. Patient met SIRS criteria at approximately 1800 with the leukocytosis and tachycardia. IV fluids not administered due to fluid overload status and because she is adequately perfused. She was started on broad spectrum antibiotics with Vancomycin and Cefepime at approximately 1900. This case was discussed in detail with the attending ED physician. Presentation, findings, and treatment plan discussed in detail as well. - Lab Data Result diagrams: 01/01/22 17:21 01/01/22 19:55 Lab Results 01/01/22 01/01/22 01/01/22 Range/Units 17:21 17:21 17:21 WBC 31.3 H (3.8-10.6) k/uL RBC 3.87 (3.80-5.40) m/uL Hgb 12.2 (11.4-16.0) gm/dL Hct 40.5 (34.0-46.0) % MCV 104.7 H (80.0-100.0) fL MCH 31.6 (25.0-35.0) pg MCHC 30.2 L (31.0-37.0) g/dL RDW 15.3 (11.5-15.5) % Plt Count (150-450) k/uL MPV 8.3 Neutrophils % (Manual) 81 % Band Neuts % (Manual) 2 % Lymphocytes % (Manual) 10 % Monocytes % (Manual) 7 % Neutrophils # (Manual) 25.90 H (1.3-7.7) k/uL Lymphocytes # (Manual) 3.13 (1.0-4.8) k/uL Monocytes # (Manual) 2.19 H (0-1.0) k/uL Nucleated RBCs 0 (0-0) /100 WBC Manual Slide Review Performed Polychromasia Present Hypochromasia Moderate Macrocytosis Moderate Sodium 138 (137-145) mmol/L Potassium 5.8 H (3.5-5.1) mmol/L Chloride 94 L (98-107) mmol/L Carbon Dioxide 23 (22-30) mmol/L Anion Gap 21 mmol/L BUN 79 H (7-17) mg/dL Creatinine 9.05 H* (0.52-1.04) mg/dL Est GFR (CKD-EPI)AfAm 5 (>60 ml/min/1.73 sqM) Est GFR (CKD-EPI)NonAf 4 (>60 ml/min/1.73 sqM) Glucose 176 H (74-99) mg/dL Plasma Lactic Acid Koby 1.4 (0.7-2.0) mmol/L Calcium 9.0 (8.4-10.2) mg/dL Total Bilirubin 0.6 (0.2-1.3) mg/dL AST 18 (14-36) U/L ALT 10 (4-34) U/L Alkaline Phosphatase 155 H (38-126) U/L Total Protein 7.3 (6.3-8.2) g/dL Albumin 3.8 (3.5-5.0) g/dL Coronavirus (PCR) (Not Detectd) Influenza Type A RNA (Not Detectd) Influenza Type B (PCR) (Not Detectd) 01/01/22 01/01/22 Range/Units 17:21 17:21 WBC (3.8-10.6) k/uL RBC (3.80-5.40) m/uL Hgb (11.4-16.0) gm/dL Hct (34.0-46.0) % MCV (80.0-100.0) fL MCH (25.0-35.0) pg MCHC (31.0-37.0) g/dL RDW (11.5-15.5) % Plt Count (150-450) k/uL MPV Neutrophils % (Manual) % Band Neuts % (Manual) % Lymphocytes % (Manual) % Monocytes % (Manual) % Neutrophils # (Manual) (1.3-7.7) k/uL Lymphocytes # (Manual) (1.0-4.8) k/uL Monocytes # (Manual) (0-1.0) k/uL Nucleated RBCs (0-0) /100 WBC Manual Slide Review Polychromasia Hypochromasia Macrocytosis Sodium (137-145) mmol/L Potassium (3.5-5.1) mmol/L Chloride (98-107) mmol/L Carbon Dioxide (22-30) mmol/L Anion Gap mmol/L BUN (7-17) mg/dL Creatinine (0.52-1.04) mg/dL Est GFR (CKD-EPI)AfAm (>60 ml/min/1.73 sqM) Est GFR (CKD-EPI)NonAf (>60 ml/min/1.73 sqM) Glucose (74-99) mg/dL Plasma Lactic Acid Koby (0.7-2.0) mmol/L Calcium (8.4-10.2) mg/dL Total Bilirubin (0.2-1.3) mg/dL AST (14-36) U/L ALT (4-34) U/L Alkaline Phosphatase (38-126) U/L Total Protein (6.3-8.2) g/dL Albumin (3.5-5.0) g/dL Coronavirus (PCR) Not Detected (Not Detectd) Influenza Type A RNA Not Detected (Not Detectd) Influenza Type B (PCR) Not Detected (Not Detectd) - EKG Data EKG Comments: Supraventricular tachycardia. Ventricular rate 128 bpm, QRS duration 92 ms, QTC 360 ms. - Radiology Data Radiology results: report reviewed, image reviewed Disposition Clinical Impression: SIRS (systemic inflammatory response syndrome), Hyperkalemia Disposition: ADMITTED IP TO THIS HOSP
[2022-01-01 17:34] LABS: HCT 40.5 % (34.0-46.0); HGB 12.2 gm/dL (11.4-16.0); Hypochromasia Moderate; MCH 31.6 pg (25.0-35.0); MCHC 30.2 g/dL (31.0-37.0); MCV 104.7 fL (80.0-100.0); Macrocytosis Moderate; Mean Platelet Volume 8.3; RBC 3.87 m/uL (3.80-5.40); RDW 15.3 % (11.5-15.5); WBC 31.3 k/uL (3.8-10.6)
[2022-01-01 18:01] LABS: Albumin 3.8 g/dL (3.5-5.0); Potassium 5.8 mmol/L (3.5-5.1); Total Bilirubin 0.6 mg/dL (0.2-1.3); Total Protein 7.3 g/dL (6.3-8.2)
[2022-01-01 18:10] LABS: Band Neutrophils % 2 %; Lymphocytes # (M) 3.13 k/uL (1.0-4.8); Monocytes # (M) 2.19 k/uL (0-1.0); Neutrophils % (M) 81 %; Nucleated Red Blood Cells 0 /100 WBC (0-0); Polychromasia Present; Total Cells Counted 100
--- NOTE | 2022-01-01 19:02 | XR ---
EXAMINATION TYPE: XR chest 2V DATE OF EXAM: 01/01/2022 5:53 PM COMPARISON: Chest radiographs from 522 TECHNIQUE: XR chest 2V Frontal and lateral views of the chest. CLINICAL INDICATION:Female, 71 years old with history of Cough, Shortness of breath; FINDINGS: Lungs/Pleura: Low lung volumes are present. There is no evidence of pleural effusion, focal consolida tion, or pneumothorax. Pulmonary vascularity: Unremarkable. Heart/mediastinum: Cardiomediastinal silhouette is unremarkable. Musculoskeletal: No acute osseous pathology. IMPRESSION: Low lung volumes with a generalized hazy appearance which could represent atelectasis versus pulmonar y edema correlate with serum BNP.
[2022-01-01] MEDS ORDERED: SODIUM POLYSTYRENE SULFONATE 15 GM/60 ML BOTTLE PO ONE (19:05)
[2022-01-01] MEDS ORDERED: CALCIUM GLUCONATE IN NACL 1 GM in SALINE 1 100ML.BAG IVPB ONE ×2 (19:05→22:20)
[2022-01-01] MEDS ORDERED: CEFEPIME 2 GM in SODIUM CHLORIDE 0.9% 100 ML IVPB SCH (19:15)
[2022-01-01] MEDS ORDERED: VANCOMYCIN IV PER PHARMACY 1 EACH MISC MISCELLANE PRN (19:21)
[2022-01-01] MEDS ORDERED: CEFEPIME 2 GM in SODIUM CHLORIDE 0.9% 100 ML IVPB ONE (19:30)
[2022-01-01] MEDS ORDERED: NALOXONE 0.4 MG/ML 1 ML VIAL IV PRN (19:51)
[2022-01-01] MEDS ORDERED: HYDROcodone/APAP 5-325MG 1 EACH TAB PO PRN (19:51)
[2022-01-01] MEDS ORDERED: VANCOMYCIN 1,250 MG in SODIUM CHLORIDE 0.9% 250 ML IVPB ONE (20:00)
[2022-01-01] MEDS: APIXABAN 2.5 MG TABLET PO SCH (21:39)
[2022-01-01] MEDS: ATORVASTATIN 40 MG TAB PO SCH (21:39)
[2022-01-01] MEDS: hydrALAZINE HCL 25 MG TAB PO SCH (21:39)
[2022-01-01] MEDS ORDERED: INSULIN REGULAR 100 UNIT/ML VIAL (IV) IV ONE (22:20)
[2022-01-01] MEDS ORDERED: DEXTROSE 50% SYRINGE 50 ML IVP ONE (22:20)
--- NOTE | 2022-01-01 23:37 | P.HPIM ---
History of Present Illness H&P Date: 01/01/22 Chief Complaint: feeling ill and weak 71-year-old female with diabetes mellitus on insulin, hypertension And decision renal disease on hemodialysis through a right fistula TTS Patient comes in today upon recommendations of her dialysis center as when she was evaluated she seems to be sick with elevated heart rate and low blood pressure. Patient reports that she's been feeling sick and weak for the past couple days she's been popping for about 4 days now with dizzy episodes she describes it as productive cough no hemoptysis no chest pain no fevers but she does feel chills she reports that a lot of people been coughing around in at the dialysis center. And today she has missed her dialysis due to her vital signs didn't seem to be stable. Upon arrival to the ED she was found to be hypoxic on room air supplemental oxygen was started she was found to have elevated serum 5.8 viral panel was negative. Patient tries to be compliant with her medications and dialysis. She was afebrile but found to have elevated white count of 31. Chest x-ray showed atelectasis versus pulmonary edema due to haziness around the basal portion of the lungs Patient with assist with the amount of urine asymptomatic, she denies any diarrhea denies any chest pain denies any abdominal pain and patient had recently had surgery about a month ago and reports that everything has been going okay she reports history of blood clots but currently on blood thinner Review of Systems Pertinent positives as noted in HPI. All other systems were reviewed and are negative Past Medical History Past Medical History: Atrial Fibrillation, Cancer, Diabetes Mellitus, Hyperlipidemia, Hypertension, Renal Disease, Vascular Disorder Additional Past Medical History / Comment(s): Hx vulva cancer, multicystic kidneys, ESRD, left lower leg amputation-no prosthesis-uses w/c-able to pivot transfer with asst, Macular Degeneration/blind, chronic pain, chronic wound to right leg had fall with hematoma-healed. hemodialysis ,, 3 hr 15 min History of Any Multi-Drug Resistant Organisms: MRSA Date of last positivie culture/infection: 2015 MDRO Source:: left leg Past Surgical History: Adenoidectomy, Tonsillectomy Additional Past Surgical History / Comment(s): Left arm dialysis graft, left above the knee amputation, surgery for Macular Degeneration,port left chest Past Anesthesia/Blood Transfusion Reactions: No Reported Reaction Additional Past Anesthesia/Blood Transfusion Reaction / Comment(s): no problems with prior blood transfusions Past Psychological History: Anxiety Smoking Status: Current every day smoker Past Alcohol Use History: None Reported Past Drug Use History: None Reported - Past Family History Mother Additional Family Medical History / Comment(s): bleeding esophagus at age 34 Father Additional Family Medical History / Comment(s): at age 93 family Family Medical History: Unable to Obtain Medications and Allergies Home Medications Medication Instructions Recorded Confirmed Type RX: ALPRAZolam [Xanax] 1 mg PO Q8H PRN 04/18/20 01/01/22 History RX: Atorvastatin [Lipitor] 40 mg PO HS 04/18/20 01/01/22 History RX: Calcium Acetate [PhosLo] 1,334 mg PO TID-W/MEALS 04/18/20 01/01/22 History RX: Insulin Degludec [Tresiba 10 units SQ DAILY 04/18/20 01/01/22 History Flextouch U-100 Pen] RX: Levocetirizine Dihydrochloride 5 mg PO DAILY 04/18/20 01/01/22 History RX: Levothyroxine Sodium 150 mcg PO DAILY 04/18/20 01/01/22 History [Synthroid] RX: Methadone HCl [Methadone 1 dose PO DAILY 04/18/20 01/01/22 History Intensol] RX: Omeprazole 20 mg PO DAILY 04/18/20 01/01/22 History RX: carvediloL [Coreg] 3.125 mg PO SUMOWEFR@0900 04/18/20 01/01/22 History RX: Cholecalciferol [Vitamin D3 50 mcg PO DAILY 05/20/20 01/01/22 History (25 Mcg = 1000 Iu)] RX: Furosemide [Lasix] 20 mg PO SUMOWEFR 05/20/20 01/01/22 History RX: Insulin Lispro [humaLOG See Protocol SQ AC-TID 05/20/20 01/01/22 History Kwikpen] RX: Apixaban [Eliquis] 2.5 mg PO BID 12/05/20 01/01/22 History RX: Ammonium Lactate Lotion 1 applic TOPICAL BID PRN 08/28/21 01/01/22 History [Lac-Hydrin 12% Lotion] RX: Lidocaine 5% Oint [Xylocaine 1 applic TOPICAL BID 08/28/21 01/01/22 History 5% Oint] RX: Vit C/E/Zn/Coppr/Lutein/Zeaxan 2 cap PO DAILY 08/28/21 01/01/22 History [Preservision Areds 2 Softgel] Cephalexin [Keflex] 500 mg PO DIRECTED 01/01/22 01/01/22 History Fluticasone/Umeclidin/Vilanter 1 puff INHALATION RT-DAILY 01/01/22 01/01/22 History [Trelegy Ellipta 200-62.5-25] Losartan [Cozaar] 25 mg PO DAILY 01/01/22 01/01/22 History Midodrine [ProAmatine] 5 mg PO TUTHSA PRN 01/01/22 01/01/22 History Nephro-Ann 0.8mg 1 cap PO DAILY 01/01/22 01/01/22 History RX: hydrALAZINE HCL 25 mg PO TID 01/01/22 01/01/22 History amLODIPine [Norvasc] 5 mg PO TUTHSA PRN 01/01/22 01/01/22 History carvediloL [Coreg] 3.125 mg PO HS 01/01/22 01/01/22 History Allergies Allergy/AdvReac Type Severity Reaction Status Date / Time pentazocine [From Kimmie] AdvReac Unknown Verified 01/01/22 18:57 Physical Exam Vitals: Vital Signs Temp Pulse Resp BP Pulse Ox 01/01/22 21:41 100.3 F H 73 21 125/76 99 01/01/22 18:44 122 H 18 127/80 96 01/01/22 14:46 97.9 F 134 H 18 113/62 80 L Intake and Output 01/01/22 01/01/22 01/02/22 14:59 22:59 06:59 Other: Weight 63 kg Constitutional: No acute distress, conversant, pleasant Eyes: Anicteric sclerae, moist conjunctiva, Pupils equal round reactive to light ENMT: NC/AT Oropharynx clear, no erythema, or exudates Neck: Supple, no masses, or JVD No carotid bruits No thyromegaly Lungs: decreased breath sounds at lung basis Clear to percussion Normal respiratory effort, no accessory muscle use Cardiovascular: Heart regular in rate and rhythm, No murmurs, gallops, or rubs No peripheral edema Abdominal: Soft Nontender, no guarding, rebound or rigidity Abdomen moving with respiration Normoactive bowel sounds No hepatomegaly, No splenomegaly No palpable mass No abdominal wall hernia noted Skin: chronic skin changes over the right lower extremity, otherwiseNormal temperature, tone, texture, turgor Extremities: positive thrill in right AV fistula left AKA No digital cyanosis No clubbing Pedal pulses ache in the right lower extremity capillary fill immediate Radial pulses intact and symmetrical No calf tenderness Psychiatric: Alert and oriented to person, place and time Appropriate affect fair judgement Neuro Muscles Strength 4/5 in all 4 extremities Sensation to light touch grossly present throughout Cranial nerves II-XII grossly intact No focal sensory deficits Lymphatics: no palpable cervical or supraclavicular , or inguinal lymph nodes Results CBC & Chem 7: 01/01/22 17:21 01/01/22 19:55 Labs: Abnormal Lab Results - Last 24 Hours (Table) 01/01/22 01/01/22 01/01/22 Range/Units 17:21 17:21 19:55 WBC 31.3 H (3.8-10.6) k/uL MCV 104.7 H (80.0-100.0) fL MCHC 30.2 L (31.0-37.0) g/dL Neutrophils # (Manual) 25.90 H (1.3-7.7) k/uL Monocytes # (Manual) 2.19 H (0-1.0) k/uL Potassium 5.8 H 6.5 H* (3.5-5.1) mmol/L Chloride 94 L (98-107) mmol/L BUN 79 H (7-17) mg/dL Creatinine 9.05 H* (0.52-1.04) mg/dL Glucose 176 H (74-99) mg/dL Alkaline Phosphatase 155 H (38-126) U/L Assessment and Plan Assessment: end stage renal disease on hemodialysis through right AV fistula TTS Missed hemodialysis is today due to unstable vital signs chest x-ray showed possible pulmonary edema and basis Refractory hyperkalemia Nephrology planning on hemodialysis today and tomorrow Patient given cocktails to control but has similar level with calcium gluconate, insulin with dextrose, a dose of Leg Continue to monitor potassium level. Monitor vital signs Acute hypoxic respiratory failure Possibly due to the pulmonary edema rule out pneumonia COPD Follow-up cultures empirically initiated on Vanco and cefepime continue with DuoNeb's as needed Continue with inhalers Supplemental oxygen as needed respiratory viral pane negative l diabetes mellitus insulin sliding scale hypertension Resume Coreg losartan History of blood clots Continue with blood thinners Full code DVT prophylaxis patient is on Elquis
[2022-01-02] MEDS: carvediloL 3.125 MG TAB PO SCH ×3 (01:16→09:07)
[2022-01-02] MEDS: ACETAMINOPHEN TAB 325 MG TAB PO PRN ×2 (04:13→21:45)
[2022-01-02] MEDS: LEVOTHYROXINE 75 MCG TAB PO SCH (06:10)
[2022-01-02 07:59] LABS: Glucose,Whole Blood 75 mg/dL (70-110)
[2022-01-02] MEDS: IPRATROPIUM 0.5 MG/2.5 ML NEBU INHALATION SCH ×4 (08:23→21:06)
[2022-01-02] MEDS: SYMBICORT 80-4.5 MCG INHALER INHALATION SCH ×2 (08:23→21:06)
[2022-01-02] MEDS: CALCIUM ACETATE 667 MG TAB PO SCH ×3 (08:55→20:05)
[2022-01-02] MEDS: INSULIN ASPART (NovoLOG) 100 UNIT/ML VIAL SQ SCH ×4 (08:56→20:25)
[2022-01-02] MEDS: PANTOPRAZOLE 40 MG TABLET PO SCH (08:57)
[2022-01-02] MEDS: CHOLECALCIFEROL 25 MCG (1000 IU) TABLET PO SCH (09:06)
[2022-01-02] MEDS: LORATADINE 10 MG TAB PO SCH (09:06)
[2022-01-02] MEDS: LOSARTAN 25 MG TAB PO SCH (09:07)
--- NOTE | 2022-01-02 12:29 | P.NPCON ---
History of Present Illness - Reason for Consult end stage renal disease - History of Present Illness Patient is a 71-year-old female with end-stage renal disease on hemodialysis on a Friday schedule. Patient was admitted to the hospital as she was sent from dialysis unit due to rapid heart rate. Heart rate was 134 on initial admission. Blood pressure has been low with systolic around 100 mmHg. White count was elevated Chest x-ray showed pulmonary infiltrates possible interstitial edema Patient has been maintained on nasal cannula with O2 sats at 94% on 3 L. Potassium was 6.5 Patient has not missed any dialysis treatments Patient does have a history of paroxysmal A. 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 hemodialysis , 3 hr 15 min History of Any Multi-Drug Resistant Organisms: MRSA Date of last positivie culture/infection: 2015 MDRO Source:: left leg Past Surgical History: Adenoidectomy, Tonsillectomy Additional Past Surgical History / Comment(s): Left arm dialysis graft, left above the knee amputation, surgery for Macular Degeneration,port left chest Past Anesthesia/Blood Transfusion Reactions: No Reported Reaction Additional Past Anesthesia/Blood Transfusion Reaction / Comment(s): no problems with prior blood transfusions Past Psychological History: Anxiety Smoking Status: Current every day smoker Past Alcohol Use History: None Reported Past Drug Use History: None Reported - Past Family History Mother Additional Family Medical History / Comment(s): bleeding esophagus at age 34 Father Additional Family Medical History / Comment(s): at age 93 family Family Medical History: Unable to Obtain Medications and Allergies Home Medications Medication Instructions Recorded Confirmed Type ALPRAZolam [Xanax] 1 mg PO Q8H PRN 04/18/20 01/01/22 History Atorvastatin [Lipitor] 40 mg PO HS 04/18/20 01/01/22 History Calcium Acetate [PhosLo] 1,334 mg PO TID-W/MEALS 04/18/20 01/01/22 History Insulin Degludec [Tresiba 10 units SQ DAILY 04/18/20 01/01/22 History Flextouch U-100 Pen] Levocetirizine Dihydrochloride 5 mg PO DAILY 04/18/20 01/01/22 History Levothyroxine Sodium [Synthroid] 150 mcg PO DAILY 04/18/20 01/01/22 History Methadone HCl [Methadone Intensol] 1 dose PO DAILY 04/18/20 01/01/22 History Omeprazole 20 mg PO DAILY 04/18/20 01/01/22 History carvediloL [Coreg] 3.125 mg PO SUMOWEFR@0900 04/18/20 01/01/22 History Cholecalciferol [Vitamin D3 (25 50 mcg PO DAILY 05/20/20 01/01/22 History Mcg = 1000 Iu)] Furosemide [Lasix] 20 mg PO SUMOWEFR 05/20/20 01/01/22 History Insulin Lispro [humaLOG Kwikpen] See Protocol SQ AC-TID 05/20/20 01/01/22 History Apixaban [Eliquis] 2.5 mg PO BID 12/05/20 01/01/22 History Ammonium Lactate Lotion 1 applic TOPICAL BID PRN 08/28/21 01/01/22 History [Lac-Hydrin 12% Lotion] Lidocaine 5% Oint [Xylocaine 5% 1 applic TOPICAL BID 08/28/21 01/01/22 History Oint] Vit C/E/Zn/Coppr/Lutein/Zeaxan 2 cap PO DAILY 08/28/21 01/01/22 History [Preservision Areds 2 Softgel] Cephalexin [Keflex] 500 mg PO DIRECTED 01/01/22 01/01/22 History Fluticasone/Umeclidin/Vilanter 1 puff INHALATION RT-DAILY 01/01/22 01/01/22 History [Trelegy Ellipta 200-62.5-25] Losartan [Cozaar] 25 mg PO DAILY 01/01/22 01/01/22 History Midodrine [ProAmatine] 5 mg PO TUTHSA PRN 01/01/22 01/01/22 History Nephro-Ann 0.8mg 1 cap PO DAILY 01/01/22 01/01/22 History amLODIPine [Norvasc] 5 mg PO TUTHSA PRN 01/01/22 01/01/22 History carvediloL [Coreg] 3.125 mg PO HS 01/01/22 01/01/22 History hydrALAZINE HCL 25 mg PO TID 01/01/22 01/01/22 History Allergies Allergy/AdvReac Type Severity Reaction Status Date / Time pentazocine [From Talwin] AdvReac Unknown Verified 01/01/22 18:57 Physical Exam Vitals: Vital Signs Temp Pulse Pulse Resp BP Pulse Ox 01/02/22 12:13 62 01/02/22 12:03 59 L 01/02/22 09:10 64 18 104/60 94 L 01/02/22 08:37 60 01/02/22 08:24 61 01/02/22 01:35 98.4 F 70 24 125/76 99 01/01/22 23:45 68 01/01/22 21:41 100.3 F H 73 21 125/76 99 01/01/22 18:44 122 H 18 127/80 96 01/01/22 14:46 97.9 F 134 H 18 113/62 80 L Intake and Output 01/01/22 01/02/22 01/02/22 22:59 06:59 14:59 Other: # Voids 0 Patient is awake, comfortable, not in any acute distress Examination of the heart S1 and S2 Examination lungs shows decreased breath sounds at the bases Abdomen is soft nontender Examination of the lower extremities shows left AKA and chronic skin changes and chronic edema right leg [employer]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 End-stage renal disease on hemodialysis on a Friday schedule 2. Volume overload 3. Tachycardia with history of paroxysmal A. fib. Heart rate currently in the 60s 4. Rule out pneumonia 5. CK D mineral bone disorder 6. Hyperkalemia associated with end-stage renal disease Plan: Hemodialysis today and then repeat in a.m. Continue empiric antibiotics Repeat chest x-ray after hemodialysis tomorrow Continue phosphate binders Thank you for the consultation. We'll continue to follow the patient with you during her hospitalization
[2022-01-02 12:35] LABS: HCT 35.5 % (34.0-46.0); Hypochromasia Moderate; MCH 32.8 pg (25.0-35.0); MCV 105.9 fL (80.0-100.0); Macrocytosis Moderate; Mean Platelet Volume 8.7; Platelet Count 204 k/uL (150-450); RBC 3.35 m/uL (3.80-5.40); RDW 15.5 % (11.5-15.5); WBC 17.3 k/uL (3.8-10.6)
[2022-01-02 12:52] LABS: ALT 8 U/L (4-34); African American GFR (CKD) 4 (>60 ml/min/1.73 sqM); Albumin 3.1 g/dL (3.5-5.0); Anion Gap 20 mmol/L; Blood Urea Nitrogen 95 mg/dL (7-17); Calcium 8.6 mg/dL (8.4-10.2); Carbon Dioxide 21 mmol/L (22-30); Chloride 96 mmol/L (98-107); Globulin 3.1 g/dL; Glucose 81 mg/dL (74-99); Non-African American GFR(CKD) 4 (>60 ml/min/1.73 sqM); Sodium 137 mmol/L (137-145); Total Bilirubin 0.6 mg/dL (0.2-1.3); Total Protein 6.2 g/dL (6.3-8.2)
[2022-01-02] MEDS: hydrALAZINE HCL 25 MG TAB PO SCH ×3 (12:54→21:17)
[2022-01-02] MEDS: FOLIC ACID-VIT B COMPLEX-VIT C 1 CAP PO SCH (12:54)
[2022-01-02] MEDS: APIXABAN 2.5 MG TABLET PO SCH ×2 (12:54→20:59)
[2022-01-02] MEDS: VIT A,C & E-LUTEIN-MINERALS 1 EACH TAB PO SCH (13:04)
[2022-01-02 13:17] LABS: AST 20 U/L (14-36); Potassium 5.6 mmol/L (3.5-5.1)
[2022-01-02 13:18] LABS: Alkaline Phosphatase 117 U/L (38-126)
[2022-01-02] MEDS: METHADONE 10 MG TAB PO SCH (14:41)
[2022-01-02 14:42] LABS: Glucose,Whole Blood 121 mg/dL (70-110)
[2022-01-02] MEDS: METHADONE 5 MG TAB PO SCH (14:42)
[2022-01-02] MEDS ORDERED: VANCOMYCIN 1,250 MG in SODIUM CHLORIDE 0.9% 250 ML IVPB ONE (16:00)
[2022-01-02] MEDS ORDERED: ONDANSETRON 4 MG/2 ML VIAL IVP PRN (19:57)
[2022-01-02 20:22] LABS: Glucose,Whole Blood 108 mg/dL (70-110)
--- NOTE | 2022-01-02 20:26 | P.PN ---
Subjective Progress Note Date: 01/02/22 Patient is a 71-year-old female with end-stage renal disease on hemodialysis Friday, , Friday, diabetes mellitus on insulin, and hypertension who presented to the emergency department from dialysis if she was found to have an elevated heart rate and low blood pressure after dialysis clinic. In the ER she underwent an extensive evaluation. On arrival to the ER her heart rate was 134 and oxygen saturation was 80% on room air. Several hours later she spiked a fever of 100.3. Initial laboratory analysis showed white blood cell count 31.3, potassium 5.8, creatinine 9, and BNP at 20,100. Hernandez virus and influenza testing was negative. Chest x-ray shows low lung volumes with general haziness possible atelectasis versus pulmonary edema. EKG showed sinus tachycardia. She was started on cefepime and vancomycin. Patient seen and examined at bedside. She is feeling slightly better, no chest pain, slight shortness of breath, no open wounds. General: nontoxic, no distress, appears at stated age Derm: warm, dry Head: atraumatic, normocephalic, symmetric Eyes: EOMI, no lid lag, anicteric sclera Mouth: no lip lesion, mucus membranes moist Cardiovascular: S1S2 reg, no murmur, positive posterior tibial pulse bilateral, Lungs: course bs bilateral, no rhonchi, no rales , no accessory muscle use Abdominal: soft, nontender to palpation, no guarding, no appreciable o rganomegaly Ext: no gross muscle atrophy, no edema, no contractures, fistula with good thrill and good bruiti Neuro: CN II-XI grossly intact, no focal neuro deficits Psych: Alert, oriented, appropriate affect Assessment/plan: sepsis, undetermined etiology - await blood culture - repeat CXR in AM - Conitnue with vanco and cefepime End-stage renal disease with fluid overload Hyperkalemia -Nephrology recommendations appreciated - phosLo Acute hypoxic respiratory failure likely secondary to pulmonary edema -Fluid management with hemodialysis COPD without exacerbation -And bronchodilators Diabetes mellitus type 2 -Sliding-scale insulin - follow BS Hypertension, controlled -Cozaar -Coreg and norvasc on hold - hold hydralazine History of venous thromboembolic disease - eliquis Chronic pain -Continue with methadone as per home dosing Hypothyroidism Objective - Vital Signs Vital signs: Vital Signs Temp 99.3 F 01/02/22 20:00 Pulse 88 01/02/22 20:00 Resp 16 01/02/22 20:00 BP 141/71 01/02/22 20:00 Pulse Ox 93 L 01/02/22 20:00 FiO2 Intake & Output 01/02/22 01/02/22 01/03/22 06:59 18:59 06:59 Intake Total 500 Output Total 2000 Balance -1500 Weight 63 kg Intake: Hemodialysis 500 Output: Hemodialysis 1999 Other: # Voids 0 - Labs CBC & Chem 7: 01/02/22 11:43 01/02/22 11:43 Labs: Abnormal Lab Results - Last 24 Hours (Table) 01/01/22 01/02/22 01/02/22 Range/Units 23:37 02:44 02:44 WBC (3.8-10.6) k/uL RBC (3.80-5.40) m/uL Hgb (11.4-16.0) gm/dL MCV (80.0-100.0) fL Potassium 5.8 H 5.6 H (3.5-5.1) mmol/L Chloride (98-107) mmol/L Carbon Dioxide (22-30) mmol/L BUN (7-17) mg/dL Creatinine 9.34 H* (0.52-1.04) mg/dL POC Glucose (mg/dL) (70-110) mg/dL Total Protein (6.3-8.2) g/dL Albumin (3.5-5.0) g/dL 01/02/22 01/02/22 01/02/22 Range/Units 11:43 11:43 14:40 WBC 17.3 H (3.8-10.6) k/uL RBC 3.35 L (3.80-5.40) m/uL Hgb 11.0 L (11.4-16.0) gm/dL MCV 105.9 H (80.0-100.0) fL Potassium 5.6 H (3.5-5.1) mmol/L Chloride 96 L (98-107) mmol/L Carbon Dioxide 21 L (22-30) mmol/L BUN 95 H (7-17) mg/dL Creatinine 9.65 H* (0.52-1.04) mg/dL POC Glucose (mg/dL) 121 H (70-110) mg/dL Total Protein 6.2 L (6.3-8.2) g/dL Albumin 3.1 L (3.5-5.0) g/dL
[2022-01-02] MEDS: ATORVASTATIN 40 MG TAB PO SCH (20:59)
[2022-01-02] MEDS ORDERED: CEFEPIME 1 GM in SODIUM CHLORIDE 0.9% 50 ML IVPB SCH (21:00)
[2022-01-02] MEDS: IPRATROPIUM-ALBUTEROL 3 ML NEB INHALATION PRN (21:05)
[2022-01-02] MEDS: ALPRAZolam 1 MG TAB PO PRN (21:11)
[2022-01-03] MEDS: LEVOTHYROXINE 75 MCG TAB PO SCH (06:26)
[2022-01-03 07:03] LABS: HCT 38.3 % (34.0-46.0); HGB 11.3 gm/dL (11.4-16.0); Hypochromasia Marked; MCH 31.3 pg (25.0-35.0); MCHC 29.6 g/dL (31.0-37.0); MCV 105.9 fL (80.0-100.0); Macrocytosis Moderate; Mean Platelet Volume 7.9; Platelet Count 195 k/uL (150-450); RBC 3.62 m/uL (3.80-5.40); RDW 15.3 % (11.5-15.5); WBC 12.7 k/uL (3.8-10.6)
[2022-01-03 07:10] LABS: Glucose,Whole Blood 67 mg/dL (70-110)
[2022-01-03] MEDS: INSULIN ASPART (NovoLOG) 100 UNIT/ML VIAL SQ SCH ×4 (07:11→22:52)
[2022-01-03] MEDS: CALCIUM ACETATE 667 MG TAB PO SCH ×3 (07:17→17:26)
[2022-01-03] MEDS: LORATADINE 10 MG TAB PO SCH (07:17)
[2022-01-03 07:18] LABS: African American GFR (CKD) 8 (>60 ml/min/1.73 sqM); Anion Gap 17 mmol/L; Blood Urea Nitrogen 40 mg/dL (7-17); Calcium 8.7 mg/dL (8.4-10.2); Carbon Dioxide 23 mmol/L (22-30); Chloride 99 mmol/L (98-107); Glucose 63 mg/dL (74-99); Non-African American GFR(CKD) 7 (>60 ml/min/1.73 sqM); Potassium 4.6 mmol/L (3.5-5.1); Sodium 139 mmol/L (137-145)
[2022-01-03] MEDS: PANTOPRAZOLE 40 MG TABLET PO SCH (07:18)
[2022-01-03] MEDS: VIT A,C & E-LUTEIN-MINERALS 1 EACH TAB PO SCH (07:18)
[2022-01-03] MEDS: CHOLECALCIFEROL 25 MCG (1000 IU) TABLET PO SCH (07:18)
[2022-01-03] MEDS: APIXABAN 2.5 MG TABLET PO SCH ×2 (07:18→22:51)
[2022-01-03] MEDS: FOLIC ACID-VIT B COMPLEX-VIT C 1 CAP PO SCH (07:19)
--- NOTE | 2022-01-03 07:26 | XR ---
EXAMINATION TYPE: XR chest 1V portable DATE OF EXAM: 01/03/2022 Comparison: 01/01/2022 Clinical History: 71-year-old female CHF Findings: Heart is borderline enlarged. Mild interstitial prominence is unchanged. Some strandy atelectasis in the lower lungs. No sizable pleural effusion on frontal view. Impression: Borderline cardiomegaly and chronic changes. There may be residual mild pulmonary vascular congestion . Clinical correlation. Strandy bibasilar atelectasis also present. Otherwise, no acute change.
[2022-01-03] MEDS: METHADONE 10 MG TAB PO SCH (07:28)
[2022-01-03] MEDS: METHADONE 5 MG TAB PO SCH (07:29)
[2022-01-03] MEDS: LOSARTAN 25 MG TAB PO SCH (07:33)
[2022-01-03] MEDS: hydrALAZINE HCL 25 MG TAB PO SCH ×3 (07:34→22:51)
[2022-01-03 08:33] LABS: Glucose,Whole Blood 88 mg/dL (70-110)
[2022-01-03] MEDS: IPRATROPIUM 0.5 MG/2.5 ML NEBU INHALATION SCH ×4 (08:33→19:33)
[2022-01-03] MEDS: SYMBICORT 80-4.5 MCG INHALER INHALATION SCH ×2 (08:33→19:06)
--- NOTE | 2022-01-03 09:04 | P.PN ---
Subjective Patient is seen for follow-up for end-stage renal disease, maintained on Friday schedule as outpatient She was admitted to the hospital with significant tachycardia and was found to have an elevated white count. Patient has been maintained on antibiotics. Chest x-ray showed bilateral infiltrates but these are improved post dialysis therefore most likely volume related. Patient is complaining of cough today. Patient was dialyzed yesterday with UF of 2 L. She schedule for hemodialysis again today Objective - Vital Signs Vital signs: Vital Signs Temp 97.9 F 01/03/22 07:26 Pulse 76 01/03/22 07:26 Resp 22 01/03/22 07:53 BP 113/72 01/03/22 07:26 Pulse Ox 95 01/03/22 07:26 FiO2 Intake & Output 01/02/22 01/03/22 01/03/22 18:59 06:59 18:59 Intake Total 500 200 Output Total 2000 0 Balance -1500 200 Weight 63 kg Intake: Oral 200 Hemodialysis 500 Output: Urine 0 0 Hemodialysis 2000 Other: # Voids 0 - Exam Awake, comfortable, not in any acute distress Examination of the heart S1 and S2 Examination of the lungs bilateral breath sounds are heard Abdomen is soft nontender Examination lower extremities shows chronic skin changes with 1+ edema right leg with left AKA [employer] SUPERVISOR exam grossly intact - Labs CBC & Chem 7: 01/03/22 06:38 01/03/22 06:38 Labs: Abnormal Lab Results - Last 24 Hours (Table) 01/02/22 01/02/22 01/02/22 Range/Units 11:43 11:43 14:40 WBC 17.3 H (3.8-10.6) k/uL RBC 3.35 L (3.80-5.40) m/uL Hgb 11.0 L (11.4-16.0) gm/dL MCV 105.9 H (80.0-100.0) fL MCHC (31.0-37.0) g/dL Potassium 5.6 H (3.5-5.1) mmol/L Chloride 96 L (98-107) mmol/L Carbon Dioxide 21 L (22-30) mmol/L BUN 95 H (7-17) mg/dL Creatinine 9.65 H* (0.52-1.04) mg/dL Glucose (74-99) mg/dL POC Glucose (mg/dL) 121 H (70-110) mg/dL Total Protein 6.2 L (6.3-8.2) g/dL Albumin 3.1 L (3.5-5.0) g/dL 01/03/22 01/03/22 01/03/22 Range/Units 06:38 06:38 06:38 WBC 12.7 H (3.8-10.6) k/uL RBC 3.62 L (3.80-5.40) m/uL Hgb 11.3 L (11.4-16.0) gm/dL MCV 105.9 H (80.0-100.0) fL MCHC 29.6 L (31.0-37.0) g/dL Potassium (3.5-5.1) mmol/L Chloride (98-107) mmol/L Carbon Dioxide (22-30) mmol/L BUN 40 H (7-17) mg/dL Creatinine 5.49 H 5.61 H (0.52-1.04) mg/dL Glucose 63 L (74-99) mg/dL POC Glucose (mg/dL) (70-110) mg/dL Total Protein (6.3-8.2) g/dL Albumin (3.5-5.0) g/dL 01/03/22 Range/Units 07:08 WBC (3.8-10.6) k/uL RBC (3.80-5.40) m/uL Hgb (11.4-16.0) gm/dL MCV (80.0-100.0) fL MCHC (31.0-37.0) g/dL Potassium (3.5-5.1) mmol/L Chloride (98-107) mmol/L Carbon Dioxide (22-30) mmol/L BUN (7-17) mg/dL Creatinine (0.52-1.04) mg/dL Glucose (74-99) mg/dL POC Glucose (mg/dL) 67 L (70-110) mg/dL Total Protein (6.3-8.2) g/dL Albumin (3.5-5.0) g/dL Microbiology - Last 24 Hours (Table) 01/01/22 19:55 Blood Culture - Preliminary Blood No Growth after 24 hours Assessment and Plan Assessment: 1. End-stage renal disease on hemodialysis on a Friday schedule 2. Volume overload 3. Tachycardia with history of paroxysmal A. fib. Heart rate currently in the 60s 4. Rule out pneumonia 5. CK D mineral bone disorder 6. Hyperkalemia associated with end-stage renal disease, improved post dialysis Plan: Repeat hemodialysis today. Increase UF as tolerated Finish course of antibiotics Patient is dry weight is adjusted as outpatient on dialysis.
[2022-01-03 10:58] LABS: Glucose,Whole Blood 107 mg/dL (70-110)
--- NOTE | 2022-01-03 14:55 | P.PN ---
Subjective Progress Note Date: 01/03/22 ([facility] charting seen at 1030) Patient is a 71-year-old female with end-stage renal disease on hemodialysis Friday, , Friday, diabetes mellitus on insulin, and hypertension who presented to the emergency department from dialysis if she was found to have an elevated heart rate and low blood pressure after dialysis clinic. In the ER she underwent an extensive evaluation. On arrival to the ER her heart rate was 134 and oxygen saturation was 80% on room air. Several hours later she spiked a fever of 100.3. Initial laboratory analysis showed white blood cell count 31.3, potassium 5.8, creatinine 9, and BNP at 20,100. Hernandez virus and influenza testing was negative. Chest x-ray shows low lung volumes with general haziness possible atelectasis versus pulmonary edema. EKG showed sinus tachycardia. She was started on cefepime and vancomycin. Patient seen and examined at bedside. She is feeling slightly better, no chest pain, slight shortness of breath, no open wounds. General: nontoxic, no distress, appears at stated age Derm: warm, dry Head: atraumatic, normocephalic, symmetric Eyes: EOMI, no lid lag, anicteric sclera Mouth: no lip lesion, mucus membranes moist Cardiovascular: S1S2 reg, no murmur, positive posterior tibial pulse bilateral, Lungs: course bs bilateral, no rhonchi, no rales , no accessory muscle use Abdominal: soft, nontender to palpation, no guarding, no appreciable organomegaly Ext: no gross muscle atrophy, no edema, no contractures, fistula with good thrill and good bruiti Neuro: CN II-XI grossly intact, no focal neuro deficits Psych: Alert, oriented, appropriate affect Assessment/plan: sepsis, undetermined etiology - bllod culture negative to date - repeat CXR with some mild atelectesis - repeat CXR in AM - Currently patient has had significant improvement. We'll de-escalate antibiotics to vancomycin and Rocephin with suspected pneumonia and no recent antibiotic exposure per patient. Due to her chronic dialysis use. Continue vancomycin and check MRSA nasal swab. End-stage renal disease with fluid overload Hyperkalemia, resolved -Nephrology recommendations appreciated - phosLo Acute hypoxic respiratory failure likely secondary to pulmonary edema -Fluid management with hemodialysis. Discussed with Dr. Barrientos and will repeat UF today. COPD without exacerbation -as needed bronchodilators Diabetes mellitus type 2 -Sliding-scale insulin - follow BS Hypertension, controlled -Cozaar -Coreg - norvasc on hold - hold hydralazine History of venous thromboembolic disease - eliquis Chronic pain -Continue with methadone as per home dosing Hypothyroidism Active Medications Generic Name Dose Route Start Last Admin Trade Name Freq PRN Reason Stop Dose Admin Acetaminophen 650 mg 01/01/22 19:51 01/02/22 21:45 Acetaminophen Tab 325 Mg Tab PO 650 mg Q6HR PRN Administration Mild Pain or Fever > 100.5 Albuterol/Ipratropium 3 ml 01/01/22 23:51 01/02/22 21:05 Ipratropium-Albuterol 3 Ml Neb INHALATION 3 ml RT-QID PRN Administration Shortness Of Breath Or Wheezing Alprazolam 1 mg 01/01/22 23:20 01/02/22 21:11 Alprazolam 1 Mg Tab PO 1 mg Q8H PRN Administration Anxiety Apixaban 2.5 mg 01/01/22 21:00 01/03/22 07:18 Apixaban 2.5 Mg Tablet PO 2.5 mg BID [place] Administration Protocol Atorvastatin Calcium 40 mg 01/01/22 21:00 01/02/22 20:59 Atorvastatin 40 Mg Tab PO 40 mg HS [place] Administration Budesonide/Formoterol Fumarate 2 puff 01/02/22 08:00 01/03/22 08:33 Symbicort 80-4.5 Mcg Inhaler INHALATION Not Given RT-BID [facility] Calcium Acetate 1,334 mg 01/02/22 07:30 01/03/22 12:17 Calcium Acetate 667 Mg Tab PO 1,334 mg TID-W/MEALS [place] Administration Carvedilol 3.125 mg 01/01/22 23:30 01/02/22 08:58 Carvedilol 3.125 Mg Tab PO 3.125 mg HS [place] Administration Carvedilol 3.125 mg 01/02/22 09:00 01/02/22 09:07 Carvedilol 3.125 Mg Tab PO 3.125 mg SUMOWEFR@0900 [place] Administration Cholecalciferol 50 mcg 01/02/22 09:00 01/03/22 07:18 Cholecalciferol 25 Mcg (1000 Iu) Tablet PO 50 mcg DAILY [place] Administration Hydralazine HCl 25 mg 01/01/22 22:00 01/03/22 07:34 Hydralazine Hcl 25 Mg Tab PO Not Given TID [facility] Ceftriaxone Sodium 2 gm/ 50 mls @ 100 mls/hr 01/03/22 16:00 Sodium Chloride IVPB Q24H [facility] Protocol Insulin Aspart 0 unit 01/02/22 07:30 01/03/22 12:13 Insulin Aspart (Novolog) 100 Unit/Ml Vial SQ Not Given ACHS [facility] Protocol Ipratropium [place] 0.5 mg 01/02/22 08:00 01/03/22 12:32 Ipratropium 0.5 Mg/2.5 Ml Nebu INHALATION 0.5 mg RT-QID [place] Administration Levothyroxine Sodium 150 mcg 01/02/22 06:30 01/03/22 06:26 Levothyroxine 75 Mcg Tab PO 150 mcg DAILY@0630 [place] Administration Loratadine 10 mg 01/02/22 09:00 01/03/22 07:17 Loratadine 10 Mg Tab PO 10 mg DAILY [place] Administration Losartan Potassium 25 mg 01/02/22 09:00 01/03/22 07:33 Losartan 25 Mg Tab PO 25 mg DAILY [place] Administration Methadone HCl 120 mg 01/02/22 13:00 01/03/22 07:28 Methadone 10 Mg Tab PO 120 mg DAILY [place] Administration Methadone HCl 5 mg 01/02/22 13:00 01/03/22 07:29 Methadone 5 Mg Tab PO 5 mg DAILY [place] Administration Miscellaneous Information 0 each 01/01/22 19:21 Vancomycin Iv Per Pharmacy 1 Each Mis MISCELLANE DIRECTED PRN PHARMACY DOSING PROTOCOL Multivit/Ca Carb/B Cmplx/FA/Prenat 1 each 01/02/22 09:00 01/03/22 07:19 Folic Acid-Vit B Complex-Vit C 1 Cap PO 1 each DAILY [place] Administration Multivitamins/Minerals 1 each 01/02/22 09:00 01/03/22 07:18 Vit A,C & Z-Enlkjr-Dmwxgluo 1 Each Tab PO 1 each DAILY [place] Administration Naloxone HCl 0.2 mg 01/01/22 19:51 Naloxone 0.4 Mg/Ml 1 Ml Vial IV Q2M PRN Opioid Reversal Ondansetron HCl 4 mg 01/02/22 19:57 Ondansetron 4 Mg/2 Ml Vial IVP Q8HR PRN Nausea And Vomiting Pantoprazole Sodium 40 mg 01/02/22 07:30 01/03/22 07:18 Pantoprazole 40 Mg Tablet PO 40 mg [id number]-[id number] [place] Administration Objective - Vital Signs Vital signs: Vital Signs Temp 97.7 F 01/03/22 12:23 Pulse 98 01/03/22 12:45 Resp 18 01/03/22 12:23 BP 116/62 01/03/22 12:23 Pulse Ox 95 01/03/22 07:26 FiO2 Intake & Output 01/02/22 01/03/22 01/03/22 18:59 06:59 18:59 Intake Total 500 200 Output Total 2000 3000 Balance -1500 -2800 Weight 63 kg Intake: Oral 200 Hemodialysis 500 Output: Urine 0 0 Hemodialysis 1999 3000 Other: # Voids 0 - Labs CBC & Chem 7: 01/03/22 06:38 01/03/22 06:38 Labs: Abnormal Lab Results - Last 24 Hours (Table) 01/03/22 01/03/22 01/03/22 Range/Units 06:38 06:38 06:38 WBC 12.7 H (3.8-10.6) k/uL RBC 3.62 L (3.80-5.40) m/uL Hgb 11.3 L (11.4-16.0) gm/dL MCV 105.9 H (80.0-100.0) fL MCHC 29.6 L (31.0-37.0) g/dL BUN 40 H (7-17) mg/dL Creatinine 5.49 H 5.61 H (0.52-1.04) mg/dL Glucose 63 L (74-99) mg/dL POC Glucose (mg/dL) (70-110) mg/dL 01/03/22 Range/Units 07:08 WBC (3.8-10.6) k/uL RBC (3.80-5.40) m/uL Hgb (11.4-16.0) gm/dL MCV (80.0-100.0) fL MCHC (31.0-37.0) g/dL BUN (7-17) mg/dL Creatinine (0.52-1.04) mg/dL Glucose (74-99) mg/dL POC Glucose (mg/dL) 67 L (70-110) mg/dL Microbiology - Last 24 Hours (Table) 01/01/22 19:55 Blood Culture - Preliminary Blood No Growth after 24 hours
[2022-01-03 17:22] LABS: Glucose,Whole Blood 301 mg/dL (70-110)
[2022-01-03 17:25] LABS: Glucose,Whole Blood 318 mg/dL (70-110)
[2022-01-03] MEDS: IPRATROPIUM-ALBUTEROL 3 ML NEB INHALATION PRN (19:06)
[2022-01-03 20:39] LABS: Glucose,Whole Blood 189 mg/dL (70-110)
[2022-01-03] MEDS: carvediloL 3.125 MG TAB PO SCH (22:51)
[2022-01-03] MEDS: ATORVASTATIN 40 MG TAB PO SCH (22:51)
[2022-01-03] MEDS: ACETAMINOPHEN TAB 325 MG TAB PO PRN (22:57)
[2022-01-04] MEDS: LEVOTHYROXINE 75 MCG TAB PO SCH (05:33)
[2022-01-04 06:14] LABS: HCT 39.4 % (34.0-46.0); HGB 12.4 gm/dL (11.4-16.0); Hypochromasia Moderate; MCHC 31.4 g/dL (31.0-37.0); MCV 105.1 fL (80.0-100.0); Macrocytosis Moderate; Mean Platelet Volume 9.6; Platelet Count 215 k/uL (150-450); RBC 3.75 m/uL (3.80-5.40); RDW 15.5 % (11.5-15.5); WBC 13.4 k/uL (3.8-10.6)
[2022-01-04 06:26] LABS: African American GFR (CKD) 10 (>60 ml/min/1.73 sqM); Anion Gap 16 mmol/L; Blood Urea Nitrogen 29 mg/dL (7-17); Calcium 9.2 mg/dL (8.4-10.2); Carbon Dioxide 25 mmol/L (22-30); Chloride 102 mmol/L (98-107); Glucose 102 mg/dL (74-99); Non-African American GFR(CKD) 9 (>60 ml/min/1.73 sqM); Potassium 4.5 mmol/L (3.5-5.1); Sodium 143 mmol/L (137-145)
[2022-01-04 07:16] LABS: Glucose,Whole Blood 100 mg/dL (70-110)
[2022-01-04] MEDS: INSULIN ASPART (NovoLOG) 100 UNIT/ML VIAL SQ SCH ×4 (08:11→21:13)
[2022-01-04] MEDS: SYMBICORT 80-4.5 MCG INHALER INHALATION SCH ×2 (08:46→19:25)
[2022-01-04] MEDS: IPRATROPIUM 0.5 MG/2.5 ML NEBU INHALATION SCH ×4 (08:46→19:25)
[2022-01-04] MEDS ORDERED: VANCOMYCIN 1,250 MG in SODIUM CHLORIDE 0.9% 250 ML IVPB ONE ×2 (09:00→13:00)
[2022-01-04] MEDS: CHOLECALCIFEROL 25 MCG (1000 IU) TABLET PO SCH (09:49)
[2022-01-04] MEDS: VIT A,C & E-LUTEIN-MINERALS 1 EACH TAB PO SCH (09:49)
[2022-01-04] MEDS: FOLIC ACID-VIT B COMPLEX-VIT C 1 CAP PO SCH (09:49)
[2022-01-04] MEDS: CALCIUM ACETATE 667 MG TAB PO SCH ×3 (09:49→16:53)
[2022-01-04] MEDS: LORATADINE 10 MG TAB PO SCH (09:49)
[2022-01-04] MEDS: LOSARTAN 25 MG TAB PO SCH (09:50)
[2022-01-04] MEDS: APIXABAN 2.5 MG TABLET PO SCH ×2 (09:50→21:13)
[2022-01-04] MEDS: PANTOPRAZOLE 40 MG TABLET PO SCH (09:50)
[2022-01-04] MEDS: hydrALAZINE HCL 25 MG TAB PO SCH ×3 (09:50→21:12)
[2022-01-04] MEDS: METHADONE 5 MG TAB PO SCH (09:50)
[2022-01-04] MEDS: carvediloL 3.125 MG TAB PO SCH ×2 (09:50→21:13)
[2022-01-04] MEDS: METHADONE 10 MG TAB PO SCH (09:51)
[2022-01-04 11:25] LABS: Glucose,Whole Blood 112 mg/dL (70-110)
--- NOTE | 2022-01-04 14:09 | P.PN ---
Subjective Progress Note Date: 01/04/22 (delayed charting seen at approx 10am) Patient is a 71-year-old female with end-stage renal disease on hemodialysis Friday, , Friday, diabetes mellitus on insulin, and hypertension who presented to the emergency department from dialysis if she was found to have an elevated heart rate and low blood pressure after dialysis clinic. In the ER she underwent an extensive evaluation. On arrival to the ER her heart rate was 134 and oxygen saturation was 80% on room air. Several hours later she spiked a fever of 100.3. Initial laboratory analysis showed white blood cell count 31.3, potassium 5.8, creatinine 9, and BNP at 20,100. Hernandez virus and influenza testing was negative. Chest x-ray shows low lung volumes with general haziness possible atelectasis versus pulmonary edema. EKG showed sinus tachycardia. She was started on cefepime and vancomycin. Patient seen and examined at bedside. She has no complaints today, coughing and phlegm is better, no chest pain, no nausea. General: nontoxic, no distress, appears at stated age Derm: warm, dry Head: atraumatic, normocephalic, symmetric Eyes: EOMI, no lid lag, anicteric sclera Mouth: no lip lesion, mucus membranes moist Cardiovascular: S1S2 reg, no murmur Lungs: course bs bilateral, no rhonchi, no rales , no accessory muscle use Abdominal: soft, nontender to palpation, no guarding, no appreciable organomegaly Ext: no gross muscle atrophy, no edema, no contractures, left BKA Neuro: CN II-XI grossly intact, no focal neuro deficits Psych: Alert, oriented, appropriate affect Assessment/plan: sepsis, suspect due to PNA - blood culture negative to date - repeat CXR with some mild atelectesis - repeat CXR in AM - Currently patient has had significant improvement. Continue vancomycin and Rocephin with suspected pneumonia and no recent antibiotic exposure per patient. Due to her chronic dialysis use. Continue vancomycin and check MRSA nasal swab- yet to be collected End-stage renal disease with fluid overload Hyperkalemia, resolved -Nephrology recommendations appreciated - phosLo Acute hypoxic respiratory failure likely secondary to pulmonary edema -Fluid management with hemodialysis anticipate HD tomorrow before discharge. COPD without exacerbation -as needed bronchodilators Diabetes mellitus type 2 -Sliding-scale insulin - follow BS Hypertension, controlled -Cozaar -Coreg - hydralazine - norvasc on hold History of venous thromboembolic disease - eliquis Chronic pain -Continue with methadone as per home dosing Hypothyroidism -levothyroxine Daughter updated of potential discharge home tomorrow. Active Medications Generic Name Dose Route Start Last Admin Trade Name Freq PRN Reason Stop Dose Admin Acetaminophen 650 mg 01/01/22 19:51 01/03/22 22:57 Acetaminophen Tab 325 Mg Tab PO 650 mg Q6HR PRN Administration Mild Pain or Fever > 100.5 Albuterol/Ipratropium 3 ml 01/01/22 23:51 01/03/22 19:06 Ipratropium-Albuterol 3 Ml Neb INHALATION 3 ml RT-QID PRN Administration Shortness Of Breath Or Wheezing Alprazolam 1 mg 01/01/22 23:20 01/02/22 21:11 Alprazolam 1 Mg Tab PO 1 mg Q8H PRN Administration Anxiety Apixaban 2.5 mg 01/01/22 21:00 01/04/22 09:50 Apixaban 2.5 Mg Tablet PO 2.5 mg BID [facility] Administration Protocol Atorvastatin Calcium 40 mg 01/01/22 21:00 01/03/22 22:51 Atorvastatin 40 Mg Tab PO 40 mg HS [facility] Administration Budesonide/Formoterol Fumarate 2 puff 01/02/22 08:00 01/04/22 08:46 Symbicort 80-4.5 Mcg Inhaler INHALATION 2 puff RT-BID [facility] Administration Calcium Acetate 1,334 mg 01/02/22 07:30 01/04/22 13:07 Calcium Acetate 667 Mg Tab PO 1,334 mg TID-W/MEALS [facility] Administration Carvedilol 3.125 mg 01/01/22 23:30 01/03/22 22:51 Carvedilol 3.125 Mg Tab PO 3.125 mg HS [facility] Administration Carvedilol 3.125 mg 01/02/22 09:00 01/04/22 09:50 Carvedilol 3.125 Mg Tab PO 3.125 mg SUMOWEFR@0900 [facility] Administration Cholecalciferol 50 mcg 01/02/22 09:00 01/04/22 09:49 Cholecalciferol 25 Mcg (1000 Iu) Tablet PO 50 mcg DAILY [facility] Administration Hydralazine HCl 25 mg 01/01/22 22:00 08/12/22 09:50 Hydralazine Hcl 25 Mg Tab PO 25 mg TID [facility] Administration Ceftriaxone Sodium 2 gm/ 50 mls @ 100 mls/hr 01/03/22 16:00 01/03/22 18:15 Sodium Chloride IVPB 100 mls/hr Q24H [facility] Administration Protocol Vancomycin HCl 1,250 mg/ 250 mls @ 125 mls/hr 01/04/22 13:00 Sodium Chloride IVPB 01/04/22 14:59 ONCE ONE Insulin Aspart 0 unit 01/02/22 07:30 01/04/22 12:47 Insulin Aspart (Novolog) 100 Unit/Ml Vial SQ Not Given ACHS [facility] Protocol Ipratropium [place] 0.5 mg 01/02/22 08:00 01/04/22 12:31 Ipratropium 0.5 Mg/2.5 Ml Nebu INHALATION Not Given RT-QID [facility] Levothyroxine Sodium 150 mcg 01/02/22 06:30 01/04/22 05:33 Levothyroxine 75 Mcg Tab PO 150 mcg DAILY@0630 [facility] Administration Loratadine 10 mg 01/02/22 09:00 01/04/22 09:49 Loratadine 10 Mg Tab PO 10 mg DAILY [facility] Administration Losartan Potassium 25 mg 01/02/22 09:00 01/04/22 09:50 Losartan 25 Mg Tab PO 25 mg DAILY [facility] Administration Methadone HCl 120 mg 01/02/22 13:00 01/04/22 09:51 Methadone 10 Mg Tab PO 120 mg DAILY [facility] Administration Methadone HCl 5 mg 01/02/22 13:00 01/04/22 09:50 Methadone 5 Mg Tab PO 5 mg DAILY [facility] Administration Miscellaneous Information 0 each 01/01/22 19:21 Vancomycin Iv Per Pharmacy 1 Each Misc MISCELLANE DIRECTED PRN PHARMACY DOSING PROTOCOL Multivit/Ca Carb/B Cmplx/FA/Prenat 1 each 01/02/22 09:00 01/04/22 09:49 Folic Acid-Vit B Complex-Vit C 1 Cap PO 1 each DAILY [facility] Administration Multivitamins/Minerals 1 each 01/02/22 09:00 01/04/22 09:49 Vit A,C & T-Ibeakq-Mtwfwsgv 1 Each Tab PO 1 each DAILY [facility] Administration Naloxone HCl 0.2 mg 01/01/22 19:51 Naloxone 0.4 Mg/Ml 1 Ml Vial IV Q2M PRN Opioid Reversal Ondansetron HCl 4 mg 01/02/22 19:57 Ondansetron 4 Mg/2 Ml Vial IVP Q8HR PRN Nausea And Vomiting Pantoprazole Sodium 40 mg 01/02/22 07:30 01/04/22 09:50 Pantoprazole 40 Mg Tablet PO 40 mg AC-[id number] [facility] Administration Objective - Vital Signs Vital signs: Vital Signs Temp 97.6 F 01/04/22 12:42 Pulse 78 01/04/22 12:42 Resp 18 01/04/22 12:42 BP 129/76 01/04/22 12:42 Pulse Ox 98 01/04/22 08:00 FiO2 Intake & Output 01/03/22 01/04/22 01/04/22 18:59 06:59 18:59 Intake Total 500 50 300 Output Total 3000 50 2500 Balance -2500 0 -2200 Intake: Intake, IV Titration 50 Amount cefTRIAXone 2 gm In 50 Sodium Chloride 0.9% 50 ml @ 100 mls/hr IVPB Q24H [facility] Rx#:[id number] Oral 500 Hemodialysis 300 Output: Urine 0 50 Hemodialysis 3000 2500 Other: # Voids 1 - Labs CBC & Chem 7: 01/04/22 05:43 01/04/22 05:43 Labs: Abnormal Lab Results - Last 24 Hours (Table) 01/03/22 01/03/22 01/03/22 Range/Units 17:20 17:23 20:38 WBC (3.8-10.6) k/uL RBC (3.80-5.40) m/uL MCV (80.0-100.0) fL BUN (7-17) mg/dL Creatinine (0.52-1.04) mg/dL Glucose (74-99) mg/dL POC Glucose (mg/dL) 301 H 318 H 189 H (70-110) mg/dL 01/04/22 01/04/22 01/04/22 Range/Units 05:43 05:43 11:23 WBC 13.4 H (3.8-10.6) k/uL RBC 3.75 L (3.80-5.40) m/uL MCV 105.1 H (80.0-100.0) fL BUN 29 H (7-17) mg/dL Creatinine 4.76 H (0.52-1.04) mg/dL Glucose 102 H (74-99) mg/dL POC Glucose (mg/dL) 112 H (70-110) mg/dL Microbiology - Last 24 Hours (Table) 01/01/22 19:55 Blood Culture - Preliminary Blood No Growth after 48 hours
[2022-01-04] MEDS: IPRATROPIUM-ALBUTEROL 3 ML NEB INHALATION PRN (15:42)
--- NOTE | 2022-01-04 16:17 | P.PN ---
Subjective Progress Note Date: 01/04/22 Follow-up for ESRD. Objective - Vital Signs Vital signs: Vital Signs Temp 99.0 F 01/04/22 14:00 Pulse 80 01/04/22 15:56 Resp 18 01/04/22 15:56 BP 96/66 01/04/22 14:00 Pulse Ox 94 L 01/04/22 14:00 FiO2 Intake & Output 01/03/22 01/04/22 01/04/22 18:59 06:59 18:59 Intake Total 500 50 300 Output Total 3000 50 2500 Balance -2500 0 -2200 Intake: Intake, IV Titration 50 Amount cefTRIAXone 2 gm In 50 Sodium Chloride 0.9% 50 ml @ 100 mls/hr IVPB Q24H [facility] Rx#:[id number] Oral 500 Hemodialysis 300 Output: Urine 0 50 Hemodialysis 3000 2500 Other: # Voids 1 - Exam No acute distress S1-S2 heard Decreased breath sounds Trace edema - Labs CBC & Chem 7: 01/04/22 05:43 01/04/22 05:43 Labs: Abnormal Lab Results - Last 24 Hours (Table) 01/03/22 01/03/22 01/03/22 Range/Units 17:20 17:23 20:38 WBC (3.8-10.6) k/uL RBC (3.80-5.40) m/uL MCV (80.0-100.0) fL BUN (7-17) mg/dL Creatinine (0.52-1.04) mg/dL Glucose (74-99) mg/dL POC Glucose (mg/dL) 301 H 318 H 189 H (70-110) mg/dL 01/04/22 01/04/22 01/04/22 Range/Units 05:43 05:43 11:23 WBC 13.4 H (3.8-10.6) k/uL RBC 3.75 L (3.80-5.40) m/uL MCV 105.1 H (80.0-100.0) fL BUN 29 H (7-17) mg/dL Creatinine 4.76 H (0.52-1.04) mg/dL Glucose 102 H (74-99) mg/dL POC Glucose (mg/dL) 112 H (70-110) mg/dL Microbiology - Last 24 Hours (Table) 01/01/22 19:55 Blood Culture - Preliminary Blood No Growth after 48 hours Assessment and Plan Assessment: #1 ESRD on hemodialysis, TTS schedule #2 volume overload better with ultrafiltration #3 anemia with chronic kidney disease #4 hypertension with chronic kidney disease #5 metabolic bone disease Plan: #1 hemodialysis tomorrow as per outpatient schedule.
[2022-01-04 16:42] LABS: Glucose,Whole Blood 197 mg/dL (70-110)
[2022-01-04 21:06] LABS: Glucose,Whole Blood 225 mg/dL (70-110)
[2022-01-04] MEDS: ACETAMINOPHEN TAB 325 MG TAB PO PRN (21:11)
[2022-01-04] MEDS: ALPRAZolam 1 MG TAB PO PRN (21:11)
[2022-01-04] MEDS: ATORVASTATIN 40 MG TAB PO SCH (21:13)
[2022-01-05] MEDS: LEVOTHYROXINE 75 MCG TAB PO SCH (05:37)
[2022-01-05 07:25] LABS: Glucose,Whole Blood 122 mg/dL (70-110)
[2022-01-05] MEDS: IPRATROPIUM 0.5 MG/2.5 ML NEBU INHALATION SCH ×4 (07:27→20:28)
[2022-01-05] MEDS: SYMBICORT 80-4.5 MCG INHALER INHALATION SCH ×2 (07:27→20:28)
[2022-01-05] MEDS: INSULIN ASPART (NovoLOG) 100 UNIT/ML VIAL SQ SCH ×4 (07:57→21:44)
[2022-01-05 08:02] LABS: HCT 37.9 % (34.0-46.0); HGB 11.3 gm/dL (11.4-16.0); Hypochromasia Moderate; MCH 30.7 pg (25.0-35.0); MCHC 29.8 g/dL (31.0-37.0); MCV 102.9 fL (80.0-100.0); Macrocytosis Slight; Mean Platelet Volume 8.1; Platelet Count 244 k/uL (150-450); RBC 3.69 m/uL (3.80-5.40); RDW 14.9 % (11.5-15.5); WBC 11.8 k/uL (3.8-10.6)
[2022-01-05 08:12] LABS: African American GFR (CKD) 10 (>60 ml/min/1.73 sqM); Anion Gap 14 mmol/L; Blood Urea Nitrogen 30 mg/dL (7-17); Calcium 9.3 mg/dL (8.4-10.2); Carbon Dioxide 31 mmol/L (22-30); Chloride 96 mmol/L (98-107); Glucose 116 mg/dL (74-99); Non-African American GFR(CKD) 9 (>60 ml/min/1.73 sqM); Potassium 3.9 mmol/L (3.5-5.1); Sodium 141 mmol/L (137-145)
[2022-01-05 08:16] LABS: Vancomycin,Random 29.6 ug/mL
[2022-01-05] MEDS: CALCIUM ACETATE 667 MG TAB PO SCH ×3 (08:40→17:16)
[2022-01-05] MEDS: CHOLECALCIFEROL 25 MCG (1000 IU) TABLET PO SCH (08:40)
[2022-01-05] MEDS: APIXABAN 2.5 MG TABLET PO SCH ×2 (08:41→21:44)
[2022-01-05] MEDS: LOSARTAN 25 MG TAB PO SCH (08:41)
[2022-01-05] MEDS: PANTOPRAZOLE 40 MG TABLET PO SCH (08:41)
[2022-01-05] MEDS: LORATADINE 10 MG TAB PO SCH (08:41)
[2022-01-05] MEDS: METHADONE 5 MG TAB PO SCH (08:41)
[2022-01-05] MEDS: hydrALAZINE HCL 25 MG TAB PO SCH ×3 (08:41→21:44)
[2022-01-05] MEDS: VIT A,C & E-LUTEIN-MINERALS 1 EACH TAB PO SCH (08:43)
[2022-01-05] MEDS: FOLIC ACID-VIT B COMPLEX-VIT C 1 CAP PO SCH (08:43)
[2022-01-05] MEDS: METHADONE 10 MG TAB PO SCH (08:48)
[2022-01-05] MEDS: ALPRAZolam 1 MG TAB PO PRN ×2 (08:57→22:04)
--- NOTE | 2022-01-05 11:34 | P.PN ---
Subjective Progress Note Date: 01/05/22 Patient is a 71-year-old female with end-stage renal disease on hemodialysis Friday, , Friday, diabetes mellitus on insulin, and hypertension who presented to the emergency department from dialysis if she was found to have an elevated heart rate and low blood pressure after dialysis clinic. In the ER she underwent an extensive evaluation. On arrival to the ER her heart rate was 134 and oxygen saturation was 80% on room air. Several hours later she spiked a fever of 100.3. Initial laboratory analysis showed white blood cell count 31.3, potassium 5.8, creatinine 9, and BNP at 20,100. Hernandez virus and influenza testing was negative. Chest x-ray shows low lung volumes with general haziness possible atelectasis versus pulmonary edema. EKG showed sinus tachycardia. She was started on cefepime and vancomycin. This morning patient states that she is still not feeling well but is feeling much better than when she came in. She stated that she is only coffee once or twice a day. She is hoping she can stay one more day. Patient currently on 3 L nasal cannula. Patient is scheduled for dialysis today. I told dialysis nurse to try and wean her oxygen down after she completes her dialysis. Objective - Vital Signs Vital signs: Vital Signs Temp 97.6 F 01/05/22 08:00 Pulse 66 01/05/22 11:05 Resp 17 01/05/22 08:00 BP 112/66 01/05/22 08:00 Pulse Ox 98 01/05/22 08:00 FiO2 Intake & Output 01/04/22 01/05/22 01/05/22 18:59 06:59 18:59 Intake Total 600 Output Total 5000 Balance -4400 Intake: Hemodialysis 600 Output: Hemodialysis 5000 Other: Voiding Method Bedside Commode # Voids 1 4 - Exam General examination - Alert and Oriented 3 in NAD, patient appears chronically debilitated Heart - + S1S2 no murmurs Lungs -diminished but does bilaterally Abdomen soft NT ND +ve BS Extremities - No edema [employer] - Moving all 4 extremities spontaneously Psych - Calm and cooperative - Labs CBC & Chem 7: 01/05/22 07:44 01/05/22 07:44 Labs: Abnormal Lab Results - Last 24 Hours (Table) 01/04/22 01/04/22 01/05/22 Range/Units 16:40 20:42 07:15 WBC (3.8-10.6) k/uL RBC (3.80-5.40) m/uL Hgb (11.4-16.0) gm/dL MCV (80.0-100.0) fL MCHC (31.0-37.0) g/dL Chloride (98-107) mmol/L Carbon Dioxide (22-30) mmol/L BUN (7-17) mg/dL Creatinine (0.52-1.04) mg/dL Glucose (74-99) mg/dL POC Glucose (mg/dL) 197 H 225 H 122 H (70-110) mg/dL 01/05/22 01/05/22 Range/Units 07:44 07:44 WBC 11.8 H (3.8-10.6) k/uL RBC 3.69 L (3.80-5.40) m/uL Hgb 11.3 L (11.4-16.0) gm/dL MCV 102.9 H (80.0-100.0) fL MCHC 29.8 L (31.0-37.0) g/dL Chloride 96 L (98-107) mmol/L Carbon Dioxide 31 H (22-30) mmol/L BUN 30 H (7-17) mg/dL Creatinine 4.68 H (0.52-1.04) mg/dL Glucose 116 H (74-99) mg/dL POC Glucose (mg/dL) (70-110) mg/dL Microbiology - Last 24 Hours (Table) 01/01/22 19:55 Blood Culture - Preliminary Blood No Growth after 72 hours Assessment and Plan Assessment: sepsis, suspect due to PNA - blood culture negative to date - Currently patient has had significant improvement. Continue vancomycin and Rocephin with suspected pneumonia and no recent antibiotic exposure per patient. Due to her chronic dialysis use. Continue vancomycin and check MRSA nasal swab- yet to be collected -Patient currently on 3 L nasal cannula. I discussed with titrated down her oxygen. A patient is on room air tomorrow we'll plan on discharge home End-stage renal disease with fluid overload Hyperkalemia, resolved -Nephrology recommendations appreciated - phosLo Acute hypoxic respiratory failure likely secondary to pulmonary edema -Fluid management with hemodialysis anticipate HD tomorrow before discharge. COPD without exacerbation -as needed bronchodilators Diabetes mellitus type 2 -Sliding-scale insulin - follow BS Hypertension, controlled -Cozaar -Coreg - hydralazine - norvasc on hold History of venous thromboembolic disease - eliquis Chronic pain -Continue with methadone as per home dosing Hypothyroidism -levothyroxine
[2022-01-05 11:37] LABS: Glucose,Whole Blood 209 mg/dL (70-110)
--- NOTE | 2022-01-05 14:15 | P.PN ---
Subjective Progress Note Date: 01/05/22 Follow-up for ESRD. Seen during dialysis tolerated well. No nausea vomiting diarrhea. Objective - Vital Signs Vital signs: Vital Signs Temp 98.4 F 01/05/22 13:49 Pulse 66 01/05/22 11:05 Resp 17 01/05/22 13:49 BP 115/52 01/05/22 13:49 Pulse Ox 97 01/05/22 13:49 FiO2 Intake & Output 01/04/22 01/05/22 01/05/22 18:59 06:59 18:59 Intake Total 600 300 Output Total 5000 2300 Balance -4400 -2000 Intake: Hemodialysis 600 300 Output: Hemodialysis 5000 2300 Other: Voiding Method Bedside Commode # Voids 1 4 - Exam No acute distress S1-S2 heard Decreased breath sounds Trace edema - Labs CBC & Chem 7: 01/05/22 07:44 01/05/22 07:44 Labs: Abnormal Lab Results - Last 24 Hours (Table) 01/04/22 01/04/22 01/05/22 Range/Units 16:40 20:42 07:15 WBC (3.8-10.6) k/uL RBC (3.80-5.40) m/uL Hgb (11.4-16.0) gm/dL MCV (80.0-100.0) fL MCHC (31.0-37.0) g/dL Chloride (98-107) mmol/L Carbon Dioxide (22-30) mmol/L BUN (7-17) mg/dL Creatinine (0.52-1.04) mg/dL Glucose (74-99) mg/dL POC Glucose (mg/dL) 197 H 225 H 122 H (70-110) mg/dL 01/05/22 01/05/22 01/05/22 Range/Units 07:44 07:44 11:36 WBC 11.8 H (3.8-10.6) k/uL RBC 3.69 L (3.80-5.40) m/uL Hgb 11.3 L (11.4-16.0) gm/dL MCV 102.9 H (80.0-100.0) fL MCHC 29.8 L (31.0-37.0) g/dL Chloride 96 L (98-107) mmol/L Carbon Dioxide 31 H (22-30) mmol/L BUN 30 H (7-17) mg/dL Creatinine 4.68 H (0.52-1.04) mg/dL Glucose 116 H (74-99) mg/dL POC Glucose (mg/dL) 209 H (70-110) mg/dL Microbiology - Last 24 Hours (Table) 01/01/22 19:55 Blood Culture - Preliminary Blood No Growth after 72 hours Assessment and Plan Assessment: #1 ESRD on hemodialysis, TTS schedule #2 volume overload better with ultrafiltration #3 anemia with chronic kidney disease #4 hypertension with chronic kidney disease #5 metabolic bone disease Plan: #1 hemodialysis as per outpatient schedule. #2 ESRD medications #3 stable from nephrology for discharge
[2022-01-05 16:23] LABS: Glucose,Whole Blood 141 mg/dL (70-110)
[2022-01-05 20:42] LABS: Glucose,Whole Blood 178 mg/dL (70-110)
[2022-01-05] MEDS: ATORVASTATIN 40 MG TAB PO SCH (21:44)
[2022-01-05] MEDS: carvediloL 3.125 MG TAB PO SCH (21:47)
[2022-01-06] MEDS: LEVOTHYROXINE 75 MCG TAB PO SCH (05:54)
[2022-01-06 07:12] LABS: Glucose,Whole Blood 154 mg/dL (70-110)
[2022-01-06] MEDS: IPRATROPIUM 0.5 MG/2.5 ML NEBU INHALATION SCH ×2 (07:32→11:42)
[2022-01-06] MEDS: SYMBICORT 80-4.5 MCG INHALER INHALATION SCH (07:32)
[2022-01-06 07:42] VITALS: BP 147/80; TEMP 98.6
[2022-01-06 07:46] VITALS: PULSE 92; RESP 18
[2022-01-06] MEDS: METHADONE 10 MG TAB PO SCH (07:47)
[2022-01-06] MEDS: CALCIUM ACETATE 667 MG TAB PO SCH ×2 (07:48→12:03)
[2022-01-06] MEDS: PANTOPRAZOLE 40 MG TABLET PO SCH (07:48)
[2022-01-06] MEDS: INSULIN ASPART (NovoLOG) 100 UNIT/ML VIAL SQ SCH ×2 (07:48→12:03)
[2022-01-06] MEDS: carvediloL 3.125 MG TAB PO SCH (07:49)
[2022-01-06] MEDS: LORATADINE 10 MG TAB PO SCH (07:49)
[2022-01-06] MEDS: hydrALAZINE HCL 25 MG TAB PO SCH (07:49)
[2022-01-06] MEDS: CHOLECALCIFEROL 25 MCG (1000 IU) TABLET PO SCH (07:49)
[2022-01-06] MEDS: METHADONE 5 MG TAB PO SCH (07:49)
[2022-01-06] MEDS: FOLIC ACID-VIT B COMPLEX-VIT C 1 CAP PO SCH (07:50)
[2022-01-06] MEDS: LOSARTAN 25 MG TAB PO SCH (07:50)
[2022-01-06] MEDS: APIXABAN 2.5 MG TABLET PO SCH (07:50)
[2022-01-06] MEDS: VIT A,C & E-LUTEIN-MINERALS 1 EACH TAB PO SCH (07:51)
[2022-01-06] MEDS: ALPRAZolam 1 MG TAB PO PRN (09:47)
[2022-01-06] MEDS: ACETAMINOPHEN TAB 325 MG TAB PO PRN (11:00)
[2022-01-06 11:31] LABS: Glucose,Whole Blood 180 mg/dL (70-110)
--- NOTE | 2022-01-06 11:42 | P.DS ---
Providers Date of admission: 01/01/22 19:52 Expected date of discharge: 01/06/22 Attending physician: Marco Fuentes MD Consults: 01/01/22 19:51 Consult Physician Urgent Consulting Provider: Analisa Barrientos Consult Reason/Comments: Dialysis patient, missed appt due to illness Do you want consulting provider notified?: Already Contacted Primary care physician: Souleymane Shah [facility] Hospital Course: Discharge Diagnosis: Sepsis Pneumonia End-stage renal disease with fluid overload Hyperkalemia: Resolved Acute hypoxic respiratory failure secondary to pulmonary edema and pneumonia COPD without exacerbation Diabetes mellitus type 2 Hypertension History of DVT Chronic pain Hypothyroidism Hospital Course: Patient is a 71-year-old female with end-stage renal disease on hemodialysis Friday, , Friday, diabetes mellitus on insulin, and hypertension who presented to the emergency department from dialysis if she was found to have an elevated heart rate and low blood pressure after dialysis clinic. In the ER she underwent an extensive evaluation. On arrival to the ER her heart rate was 134 and oxygen saturation was 80% on room air. Several hours later she spiked a fever of 100.3. Initial laboratory analysis showed white blood cell count 31.3, potassium 5.8, creatinine 9, and BNP at 20,100. Hernandez virus and influenza testing was negative. Chest x-ray shows low lung volumes with general haziness possible atelectasis versus pulmonary edema. EKG showed sinus tachycardia. She was started on cefepime and vancomycin. At the time of discharge patient was satting well on room air. Patient's vital signs were hemodynamically stable. Her WBC count was improving. Her blood cultures were negative. Patient was deemed stable for discharge. Patient will be discharged on Ceftin to complete her antibiotic course for pneumonia. Patient instructed to resume her dialysis regimen outpatient. Patient seen and examined at bedside.[33] Vital signs reviewed and stable. General: [non toxic], [no distress], appears chronically debilitated Derm: [warm], [dry] Head: [atraumatic], [normocephalic], [symmetric] Eyes: [EOMI], [no lid lag], [anicteric sclera] Mouth: [no lip lesion], [mucus membranes moist] Cardiovascular: [S1S2 reg], [no murmur], [positive posterior tibial pulse britney ateral], Lungs: Diminished breath sounds bilaterally, [no accessory muscle use] Abdominal: [soft], [ nontender to palpation], [no guarding], [no appreciable organomegaly] Ext: [no gross muscle atrophy], [no edema], [no contractures] Neuro: [ CN II-XI grossly intact], [no focal neuro deficits] Psych: [Alert], [oriented], [appropriate affect] A total of [33] minutes of time were spent preparing this complex discharge summary . Patient Condition at Discharge: Fair Plan - Discharge Summary Discharge Rx Participant: No New Discharge Prescriptions: New Benzonatate [Tessalon Perles] 100 mg PO TID PRN 7 Days #21 capsule PRN Reason: Cough cefUROXime axetiL [Ceftin] 500 mg PO BID 3 Days #6 tab Continue Insulin Degludec [Tresiba Flextouch U-100 Pen] 10 units SQ DAILY Omeprazole 20 mg PO DAILY Levothyroxine Sodium [Synthroid] 150 mcg PO DAILY Levocetirizine Dihydrochloride 5 mg PO DAILY carvediloL [Coreg] 3.125 mg PO SUMOWEFR@0900 Atorvastatin [Lipitor] 40 mg PO HS Calcium Acetate [PhosLo] 1,334 mg PO TID-W/MEALS ALPRAZolam [Xanax] 1 mg PO Q8H PRN PRN Reason: Anxiety Methadone HCl [Methadone Intensol] 125 mg PO DAILY Cholecalciferol [Vitamin D3 (25 Mcg = 1000 Iu)] 50 mcg PO DAILY Insulin Lispro [humaLOG Kwikpen] See Protocol SQ AC-TID Furosemide [Lasix] 20 mg PO SUMOWEFR Fluticasone/Umeclidin/Vilanter [Trelegy Ellipta 200-62.5-25] 1 puff INHALATION RT-DAILY hydrALAZINE HCL 25 mg PO TID Midodrine [ProAmatine] 5 mg PO TUTHSA PRN PRN Reason: low bp @dialysis Nephro-Ann 0.8mg 1 cap PO DAILY Losartan [Cozaar] 25 mg PO DAILY carvediloL [Coreg] 3.125 mg PO HS Apixaban [Eliquis] 2.5 mg PO BID Ammonium Lactate Lotion [Lac-Hydrin 12% Lotion] 1 applic TOPICAL BID PRN PRN Reason: Dry Skin Vit C/E/Zn/Coppr/Lutein/Zeaxan [Preservision Areds 2 Softgel] 2 cap PO DAILY Lidocaine 5% Oint [Xylocaine 5% Oint] 1 applic TOPICAL BID amLODIPine [Norvasc] 5 mg PO TUTHSA PRN PRN Reason: high bp @dialysis Discontinued Cephalexin [Keflex] 500 mg PO DIRECTED Discharge Medication List ALPRAZolam [Xanax] 1 mg PO Q8H PRN 04/18/20 [History] Atorvastatin [Lipitor] 40 mg PO HS 04/18/20 [History] Calcium Acetate [PhosLo] 1,334 mg PO TID-W/MEALS 04/18/20 [History] Insulin Degludec [Tresiba Flextouch U-100 Pen] 10 units SQ DAILY 04/18/20 [History] Levocetirizine Dihydrochloride 5 mg PO DAILY 04/18/20 [History] Levothyroxine Sodium [Synthroid] 150 mcg PO DAILY 04/18/20 [History] Methadone HCl [Methadone Intensol] 125 mg PO DAILY 04/18/20 [History] Omeprazole 20 mg PO DAILY 04/18/20 [History] carvediloL [Coreg] 3.125 mg PO SUMOWEFR@0900 04/18/20 [History] Cholecalciferol [Vitamin D3 (25 Mcg = 1000 Iu)] 50 mcg PO DAILY 05/20/20 [History] Furosemide [Lasix] 20 mg PO SUMOWEFR 05/20/20 [History] Insulin Lispro [humaLOG Kwikpen] See Protocol SQ AC-TID 05/20/20 [History] Apixaban [Eliquis] 2.5 mg PO BID 12/05/20 [History] Ammonium Lactate Lotion [Lac-Hydrin 12% Lotion] 1 applic TOPICAL BID PRN 08/28/21 [History] Lidocaine 5% Oint [Xylocaine 5% Oint] 1 applic TOPICAL BID 08/28/21 [History] Vit C/E/Zn/Coppr/Lutein/Zeaxan [Preservision Areds 2 Softgel] 2 cap PO DAILY 08/28/21 [History] Fluticasone/Umeclidin/Vilanter [Trelegy Ellipta 200-62.5-25] 1 puff INHALATION RT-DAILY 01/01/22 [History] Losartan [Cozaar] 25 mg PO DAILY 01/01/22 [History] Midodrine [ProAmatine] 5 mg PO TUTHSA PRN 01/01/22 [History] Nephro-Ann 0.8mg 1 cap PO DAILY 01/01/22 [History] amLODIPine [Norvasc] 5 mg PO TUTHSA PRN 01/01/22 [History] carvediloL [Coreg] 3.125 mg PO HS 01/01/22 [History] hydrALAZINE HCL 25 mg PO TID 01/01/22 [History] Benzonatate [Tessalon Perles] 100 mg PO TID PRN 7 Days #21 capsule 01/06/22 [Rx] cefUROXime axetiL [Ceftin] 500 mg PO BID 3 Days #6 tab 01/06/22 [Rx] Follow up Appointment(s)/Referral(s): Souleymane Celaya DO [Primary Care Provider] - 1-2 days Discharge Disposition: HOME WITH HOME HEALTH SERVICES
--- NOTE | 2022-01-06 13:56 | P.PN ---
Subjective Progress Note Date: 01/06/22 Follow-up for ESRD. No nausea vomiting diarrhea. Objective - Vital Signs Vital signs: Vital Signs Temp 98.6 F 01/06/22 07:42 Pulse 92 01/06/22 07:45 Resp 18 01/06/22 07:45 BP 147/80 01/06/22 07:42 Pulse Ox 93 L 01/06/22 07:42 FiO2 Intake & Output 01/05/22 01/06/22 01/06/22 18:59 06:59 18:59 Intake Total 500 Output Total 2300 Balance -1800 Intake: IV 200 0.9 KVO 100 cefTRIAXone 2 gm In 100 Sodium Chloride 0.9% 50 ml @ 100 mls/hr IVPB Q24H [facility] Rx#:[id number] Hemodialysis 300 Output: Hemodialysis 2300 Other: Voiding Method Bedside Commode Bedside Commode # Voids 1 0 # Bowel Movements 1 - Exam No acute distress S1-S2 heard Decreased breath sounds Trace edema - Labs CBC & Chem 7: 01/05/22 07:44 01/05/22 07:44 Labs: Abnormal Lab Results - Last 24 Hours (Table) 01/05/22 01/05/22 01/06/22 Range/Units 16:22 20:40 07:12 POC Glucose (mg/dL) 141 H 178 H 154 H (70-110) mg/dL 01/06/22 Range/Units 11:30 POC Glucose (mg/dL) 180 H (70-110) mg/dL Microbiology - Last 24 Hours (Table) 01/01/22 19:55 Blood Culture - Preliminary Blood No Growth after 96 hours Assessment and Plan Assessment: #1 ESRD on hemodialysis, TTS schedule #2 volume overload better with ultrafiltration #3 anemia with chronic kidney disease #4 hypertension with chronic kidney disease #5 metabolic bone disease Plan: #1 hemodialysis as per outpatient schedule. Next treatment on Friday #2 ESRD medications #3 stable from nephrology for discharge
== END 2022-01-06 14:20 | disposition home health service (06) | DRG 871 ==
LOC: EC 13:52 → 4SSUR 19:52
PROVIDERS: ADMIT Internal Medicine; ATTEND Internal Medicine
PROC: 5A1D70Z Performance of Urinary Filtration, Intermittent, Less than 6 Hours Per Day (ICD-10-PCS; principal; 2022-01-03)
DX: A41.9 Sepsis, unspecified organism (principal); J18.9 Pneumonia, unspecified organism; J96.01 Acute respiratory failure with hypoxia; N18.6 End stage renal disease; I12.0 Hypertensive chronic kidney disease with stage 5 chronic kidney disease or end stage renal disease; J44.0 Chronic obstructive pulmonary disease with (acute) lower respiratory infection; J81.1 Chronic pulmonary edema; J98.11 Atelectasis; Q61.4 Renal dysplasia; D63.1 Anemia in chronic kidney disease; E03.9 Hypothyroidism, unspecified; E11.22 Type 2 diabetes mellitus with diabetic chronic kidney disease; E78.5 Hyperlipidemia, unspecified; E87.5 Hyperkalemia; E87.70 Fluid overload, unspecified; F17.210 Nicotine dependence, cigarettes, uncomplicated; Z89.612 Acquired absence of left leg above knee; Z99.2 Dependence on renal dialysis; H35.30 Unspecified macular degeneration; F41.9 Anxiety disorder, unspecified; E83.9 Disorder of mineral metabolism, unspecified; G89.29 Other chronic pain; R00.0 Tachycardia, unspecified; I48.0 Paroxysmal atrial fibrillation; Z79.01 Long term (current) use of anticoagulants; Z79.4 Long term (current) use of insulin; Z79.51 Long term (current) use of inhaled steroids; Z79.890 Hormone replacement therapy; Z79.899 Other long term (current) drug therapy; Z85.44 Personal history of malignant neoplasm of other female genital organs; Z86.718 Personal history of other venous thrombosis and embolism; Z89.519 Acquired absence of unspecified leg below knee; Z86.14 Personal history of Methicillin resistant Staphylococcus aureus infection; Z20.822 Contact with and (suspected) exposure to COVID-19; Z83.79 Family history of other diseases of the digestive system; Z53.09 Procedure and treatment not carried out because of other contraindication
CPT/HCPCS: 36415; 71045; 71046; 80048; 80053; 80202; 82565; 83605; 83880; 84132; 85025; 85027; 87040; 87502; 87635; 90935; 93005; 94640; 96365; 96366; 96367; 96375; 99285

== ENCOUNTER 2022-02-12 14:26 | Observation (INO) | payer MEDICARE, OTHER ==
--- NOTE | 2022-02-12 15:07 | ED ---
Arrhythmia/Palpitations HPI - General Chief Complaint: Arrhythmia/Palpitations Stated Complaint: bradycardia Time Seen by Provider: 02/12/22 14:55 Source: patient, EMS, RN notes reviewed, old records reviewed Mode of arrival: EMS Limitations: no limitations - History of Present Illness Initial Comments: 71-year-old female presents to the emergency room via EMS sent for bradycardia during dialysis. Patient was bradycardic in the 30s to 40s but states she was asymptomatic. Dialysis was stopped 45 minutes due to persistent bradycardia. Patient states that she has no dizziness, no shortness of breath, no chest pain. She denies any fevers, nausea vomiting or diarrhea. Patient does have a history of end-stage renal disease, diabetes, COPD, CHF and atrial fibrillation. She is on eliquis daily. States that she is legally blind, lives with her daughter. -: hour(s) Context: other (Bradycardia during dialysis) Associated Symptoms: denies other symptoms - Related Data Home Medications Medication Instructions Recorded Confirmed ALPRAZolam [Xanax] 1 mg PO Q8H PRN 04/18/20 02/12/22 Atorvastatin [Lipitor] 40 mg PO HS 04/18/20 02/12/22 Calcium Acetate [PhosLo] 1,334 mg PO TID-W/MEALS 04/18/20 02/12/22 Insulin Degludec [Tresiba 10 units SQ DAILY 04/18/20 02/12/22 Flextouch U-100 Pen] Levocetirizine Dihydrochloride 5 mg PO DAILY 04/18/20 02/12/22 Levothyroxine Sodium [Synthroid] 150 mcg PO DAILY 04/18/20 02/12/22 Methadone HCl [Methadone Intensol] 135 mg PO DIRECTED 04/18/20 02/12/22 Omeprazole 20 mg PO DAILY 04/18/20 02/12/22 carvediloL [Coreg] 3.125 mg PO SUMOWEFR@0900 04/18/20 02/12/22 Furosemide [Lasix] 20 mg PO SUMOWEFR 05/20/20 02/12/22 Insulin Lispro [humaLOG Kwikpen] See Protocol SQ AC-TID 05/20/20 02/12/22 Apixaban [Eliquis] 2.5 mg PO BID 12/05/20 02/12/22 Ammonium Lactate Lotion 1 applic TOPICAL BID PRN 08/28/21 02/12/22 [Lac-Hydrin 12% Lotion] Lidocaine 5% Oint [Xylocaine 5% 1 applic TOPICAL BID 08/28/21 02/12/22 Oint] Vit C/E/Zn/Coppr/Lutein/Zeaxan 2 cap PO DAILY 08/28/21 02/12/22 [Preservision Areds 2 Softgel] Fluticasone/Umeclidin/Vilanter 1 puff INHALATION RT-DAILY 01/01/22 02/12/22 [Trelegy Ellipta 200-62.5-25] Losartan [Cozaar] 25 mg PO DAILY 01/01/22 02/12/22 Midodrine [ProAmatine] 5 mg PO TUTHSA PRN 01/01/22 02/12/22 Nephro-Ann 0.8mg 1 cap PO DAILY 01/01/22 02/12/22 amLODIPine [Norvasc] 5 mg PO TUTHSA PRN 01/01/22 02/12/22 carvediloL [Coreg] 3.125 mg PO HS 01/01/22 02/12/22 Cholecalciferol [Vitamin D3 (25 50 mcg PO DAILY 02/12/22 02/12/22 Mcg = 1000 Iu)] Allergies Allergy/AdvReac Type Severity Reaction Status Date / Time pentazocine [From Kimmie] AdvReac Unknown Verified 02/12/22 17:01 Review of Systems ROS Statement: Those systems with pertinent positive or pertinent negative responses have been documented in the HPI. ROS Other: All systems not noted in ROS Statement are negative. Past Medical History Past Medical History: Atrial Fibrillation, Cancer, COPD, Diabetes Mellitus, Eye Disorder, Hyperlipidemia, Hypertension, Renal Disease, Vascular Disorder Additional Past Medical History / Comment(s): Recent vulvar cancer with surgery, IDDM type II, neuropathy, ESRD with hemodialysis T//, kidney cysts, anemia, PVD/L AKA, pt thinks DVTs R leg/L arm, past R leg wound, macular degeneration bilaterally/legally blind, chronic back pain, scoliosis, History of Any Multi-Drug Resistant Organisms: MRSA Date of last positivie culture/infection: 2015 MDRO Source:: left leg Past Surgical History: Adenoidectomy, Orthopedic Surgery, Tonsillectomy Additional Past Surgical History / Comment(s): Recent total vulvectomy at [facility] in [facility], L arm dialysis graft/multiple surgeries to repair, R arm fistula, L AKA, L chest port, surgery on L arm and R leg pt thinks to remove blood clots, vulva surgery Past Anesthesia/Blood Transfusion Reactions: No Reported Reaction Additional Past Anesthesia/Blood Transfusion Reaction / Comment(s): no problems with prior blood transfusions Past Psychological History: Anxiety Smoking Status: Current every day smoker, Light tobacco smoker Past Alcohol Use History: None Reported Past Drug Use History: None Reported - Past Family History Mother Additional Family Medical History / Comment(s): Mother of liver cirrhosis at the age of 34yrs. Father Family Medical History: Eye Disorder Additional Family Medical History / Comment(s): Macular degeneration. He at age 93 family Family Medical History: Unable to Obtain General Exam Limitations: no limitations General appearance: alert, in no apparent distress Head exam: Present: atraumatic Neck exam: Absent: tenderness, meningismus Respiratory exam: Absent: respiratory distress, wheezes, rales, rhonchi, stridor, chest wall tenderness, accessory muscle use, decreased breath sounds Cardiovascular Exam: Present: regular rate, normal rhythm, other (AV graft right upper arm positive thrill) GI/Abdominal exam: Present: soft. Absent: distended, tenderness, guarding, rebound, rigid Extremities exam: Present: tenderness (Small 2 cm area of erythema right calf; dry scales right lower extremity), normal capillary refill, other (Left AKA). Absent: pedal edema, calf tenderness Back exam: Present: other (Scoliosis). Absent: tenderness, CVA tenderness (R), CVA tenderness (L) Neurological exam: Present: alert, oriented X3 Psychiatric exam: Present: normal affect, normal mood Skin exam: Present: warm, dry, normal color. Absent: cyanosis, diaphoretic, erythema, petechiae, pallor Course Vital Signs 02/12/22 02/12/22 02/12/22 14:42 14:51 16:00 Temperature 98.1 F Pulse Rate 82 79 Pulse Rate [ 81 Arabic Linguist ] Respiratory 18 18 Rate Blood Pressure 122/79 112/73 O2 Sat by Pulse 85 L 94 L Oximetry EKG Findings - EKG Results: EKG: sinus rhythm (Ventricular rate 81, IL interval 0.167, QRS 0.103, QTC 0.369) Medical Decision Making - Medical Decision Making Patient sent by dialysis for persistent bradycardia during dialysis in the 30s. Upon arrival to the emergency room patient's heart rate was in the 80s showing sinus rhythm. EMS did capture a rate of 39 on the monitor appears to be bigeminy versus artifact. Patient's pulse ox was 89% upon arrival to the ER on room air. She does have a history of COPD. Patient denies any complaints of chest pain or difficulty in breathing. She was placed on oxygen and oxygen saturation increased to 96%. Labs show no evidence of leukocytosis, hemoglobin and hematocrit are stable, potassium is 4.7. BUN 22 creatinine 3.94 consistent with her end-stage renal disease. Troponin is negative at 0.012. Chest x-ray shows a left basilar atelectasis redemonstrated from x-ray performed January 03 of this year. Case discussed with Dr. Foss, patient will be placed in observation for bradycardia and hypoxia. Patient is agreeable to this plan of care. Case also discussed with Dr. Krueger nephrology and cardiology placed on consult - Lab Data Result diagrams: 02/12/22 15:02 02/12/22 15:02 Lab Results 02/12/22 02/12/22 02/12/22 Range/Units 15:02 15:02 15:02 WBC 9.9 (3.8-10.6) k/uL RBC 4.14 (3.80-5.40) m/uL Hgb 13.4 (11.4-16.0) gm/dL Hct 42.0 (34.0-46.0) % MCV 101.4 H (80.0-100.0) fL MCH 32.2 (25.0-35.0) pg MCHC 31.8 (31.0-37.0) g/dL RDW 15.9 H (11.5-15.5) % Plt Count 207 (150-450) k/uL MPV 9.6 Neutrophils % 67 % Lymphocytes % 20 % Monocytes % 5 % Eosinophils % 5 % Basophils % 1 % Neutrophils # 6.7 (1.3-7.7) k/uL Lymphocytes # 2.0 (1.0-4.8) k/uL Monocytes # 0.5 (0-1.0) k/uL Eosinophils # 0.5 (0-0.7) k/uL Basophils # 0.1 (0-0.2) k/uL Hypochromasia Slight Macrocytosis Slight PT 12.4 H (9.0-12.0) sec INR 1.2 H (<1.2) APTT 33.8 H (22.0-30.0) sec Sodium 138 (137-145) mmol/L Potassium 4.7 (3.5-5.1) mmol/L Chloride 91 L (98-107) mmol/L Carbon Dioxide 34 H (22-30) mmol/L Anion Gap 13 mmol/L BUN 22 H (7-17) mg/dL Creatinine 3.94 H (0.52-1.04) mg/dL Est GFR (CKD-EPI)AfAm 13 (>60 ml/min/1.73 sqM) Est GFR (CKD-EPI)NonAf 11 (>60 ml/min/1.73 sqM) Glucose 167 H (74-99) mg/dL Calcium 8.6 (8.4-10.2) mg/dL Magnesium 1.9 (1.6-2.3) mg/dL Total Bilirubin 0.6 (0.2-1.3) mg/dL AST 23 (14-36) U/L ALT 14 (4-34) U/L Alkaline Phosphatase 158 H (38-126) U/L Troponin I (0.000-0.034) ng/mL Total Protein 7.4 (6.3-8.2) g/dL Albumin 4.0 (3.5-5.0) g/dL 02/12/22 Range/Units 15:02 WBC (3.8-10.6) k/uL RBC (3.80-5.40) m/uL Hgb (11.4-16.0) gm/dL Hct (34.0-46.0) % MCV (80.0-100.0) fL MCH (25.0-35.0) pg MCHC (31.0-37.0) g/dL RDW (11.5-15.5) % Plt Count (150-450) k/uL MPV Neutrophils % % Lymphocytes % % Monocytes % % Eosinophils % % Basophils % % Neutrophils # (1.3-7.7) k/uL Lymphocytes # (1.0-4.8) k/uL Monocytes # (0-1.0) k/uL Eosinophils # (0-0.7) k/uL Basophils # (0-0.2) k/uL Hypochromasia Macrocytosis PT (9.0-12.0) sec INR (<1.2) APTT (22.0-30.0) sec Sodium (137-145) mmol/L Potassium (3.5-5.1) mmol/L Chloride (98-107) mmol/L Carbon Dioxide (22-30) mmol/L Anion Gap mmol/L BUN (7-17) mg/dL Creatinine (0.52-1.04) mg/dL Est GFR (CKD-EPI)AfAm (>60 ml/min/1.73 sqM) Est GFR (CKD-EPI)NonAf (>60 ml/min/1.73 sqM) Glucose (74-99) mg/dL Calcium (8.4-10.2) mg/dL Magnesium (1.6-2.3) mg/dL Total Bilirubin (0.2-1.3) mg/dL AST (14-36) U/L ALT (4-34) U/L Alkaline Phosphatase (38-126) U/L Troponin I <0.012 (0.000-0.034) ng/mL Total Protein (6.3-8.2) g/dL Albumin (3.5-5.0) g/dL Disposition Clinical Impression: Bradycardia with 31-40 beats per minute, Hypoxia, COPD (chronic obstructive pulmonary disease), ESRD (end stage renal disease) on dialysis Disposition: ADMITTED IP TO THIS HOSP Decision Date: 02/12/22 Decision Time: 16:04
[2022-02-12 15:13] LABS: Basophils # (A) 0.1 k/uL (0-0.2); Basophils % (A) 1 %; Eosinophils # (A) 0.5 k/uL (0-0.7); Eosinophils % (A) 5 %; HGB 13.4 gm/dL (11.4-16.0); Hypochromasia Slight; Lymphocytes % (A) 20 %; MCH 32.2 pg (25.0-35.0); MCHC 31.8 g/dL (31.0-37.0); MCV 101.4 fL (80.0-100.0); Macrocytosis Slight; Mean Platelet Volume 9.6; Monocytes # (A) 0.5 k/uL (0-1.0); Monocytes % (A) 5 %; Neutrophils # (A) 6.7 k/uL (1.3-7.7); Neutrophils % (A) 67 %; Platelet Count 207 k/uL (150-450); RBC 4.14 m/uL (3.80-5.40); RDW 15.9 % (11.5-15.5); WBC 9.9 k/uL (3.8-10.6)
[2022-02-12 15:18] LABS: INR 1.2 (<1.2); Partial Thromboplastin Time 33.8 sec (22.0-30.0); Prothrombin Time 12.4 sec (9.0-12.0)
[2022-02-12 15:28] LABS: Calcium 8.6 mg/dL (8.4-10.2); Magnesium 1.9 mg/dL (1.6-2.3); Potassium 4.7 mmol/L (3.5-5.1); Total Bilirubin 0.6 mg/dL (0.2-1.3); Total Protein 7.4 g/dL (6.3-8.2)
--- NOTE | 2022-02-12 15:41 | XR ---
EXAMINATION TYPE: XR chest 2V DATE OF EXAM: 02/12/2022 3:28 PM COMPARISON: Chest radiographs from 01/03/2022 TECHNIQUE: XR chest 2V Frontal and lateral views of the chest. CLINICAL INDICATION:Female, 71 years old with history of dysrhythmia; FINDINGS: Lungs/Pleura: There is no evidence of pleural effusion or pneumothorax. Left basilar atelectasis rede monstrated. Pulmonary vascularity: Unremarkable. Heart/mediastinum: Stable borderline cardiomegaly. Atherosclerotic calcifications are seen in the ao rta. Musculoskeletal: No acute osseous pathology. Degenerative changes of the visualized spine. IMPRESSION: Left basilar atelectasis redemonstrated otherwise no acute cardiopulmonary process.
[2022-02-12] MEDS ORDERED: NALOXONE 0.4 MG/ML 1 ML VIAL IV PRN (16:23)
[2022-02-12] MEDS ORDERED: ALPRAZolam 1 MG TAB PO PRN (17:37)
[2022-02-12] MEDS ORDERED: DEXTROSE 50% SYRINGE 50 ML IVP PRN ×2 (17:41)
--- NOTE | 2022-02-12 17:47 | P.HPIM ---
History of Present Illness H&P Date: 02/12/22 Chief Complaint: Episode of bradycardia during dialysis Patient is 71-year-old female with a past medical history diabetes mellitus, hypertension and end-stage renal disease on hemodialysis Friday, Friday, COPD, history of DVT who was sent from hemodialysis because she was bradycardic. Patient is on Coreg however daughter at bedside said that she did not give any of her blood pressure medicines before dialysis. Patient denies any chest pain or lightheadedness. She states that she is asymptomatic. In the ED patient's heart rate has been within normal limits. Patient denying any acute complaints. ED provider did state that patient desat to 85%. While I was in the room I had the patient remove her oxygen and the entire time I was there patient did not desat less than 90%. Patient's heart rate was also within normal limits. Chest x-ray showed left basilar atelectasis otherwise no acute cardio pulmonary process. Review of Systems 10 ROS reviewed and are negative except as noted in HPI Past Medical History Past Medical History: Atrial Fibrillation, Cancer, COPD, Diabetes Mellitus, Eye Disorder, Hyperlipidemia, Hypertension, Renal Disease, Vascular Disorder Additional Past Medical History / Comment(s): Recent vulvar cancer with surgery, IDDM type II, neuropathy, ESRD with hemodialysis //, kidney cysts, anemia, PVD/L AKA, pt thinks DVTs R leg/L arm, past R leg wound, macular degeneration bilaterally/legally blind, chronic back pain, scoliosis, History of Any Multi-Drug Resistant Organisms: MRSA Date of last positivie culture/infection: 2015 MDRO Source:: left leg Past Surgical History: Adenoidectomy, Orthopedic Surgery, Tonsillectomy Additional Past Surgical History / Comment(s): Recent total vulvectomy at [facility] in [facility] [place], L arm dialysis graft/multiple surgeries to repair, R arm fistula, L AKA, L chest port, surgery on L arm and R leg pt thinks to remove blood clots, vulva surgery Past Anesthesia/Blood Transfusion Reactions: No Reported Reaction Additional Past Anesthesia/Blood Transfusion Reaction / Comment(s): no problems with prior blood transfusions Past Psychological History: Anxiety Smoking Status: Current every day smoker, Light tobacco smoker Past Alcohol Use History: None Reported Past Drug Use History: None Reported - Past Family History Mother Additional Family Medical History / Comment(s): Mother of liver cirrhosis at the age of 34yrs. Father Family Medical History: Eye Disorder Additional Family Medical History / Comment(s): Macular degeneration. He at age 93 family Family Medical History: Unable to Obtain Medications and Allergies Home Medications Medication Instructions Recorded Confirmed Type ALPRAZolam [Xanax] 1 mg PO Q8H PRN 04/18/20 02/12/22 History Atorvastatin [Lipitor] 40 mg PO HS 04/18/20 02/12/22 History Calcium Acetate [PhosLo] 1,334 mg PO TID-W/MEALS 04/18/20 02/12/22 History Insulin Degludec [Tresiba 10 units SQ DAILY 04/18/20 02/12/22 History Flextouch U-100 Pen] Levocetirizine Dihydrochloride 5 mg PO DAILY 04/18/20 02/12/22 History Levothyroxine Sodium [Synthroid] 150 mcg PO DAILY 04/18/20 02/12/22 History Methadone HCl [Methadone Intensol] 135 mg PO DIRECTED 04/18/20 02/12/22 History Omeprazole 20 mg PO DAILY 04/18/20 02/12/22 History carvediloL [Coreg] 3.125 mg PO SUMOWEFR@0900 04/18/20 02/12/22 History Furosemide [Lasix] 20 mg PO SUMOWEFR 05/20/20 02/12/22 History Insulin Lispro [humaLOG Kwikpen] See Protocol SQ AC-TID 05/20/20 02/12/22 History Apixaban [Eliquis] 2.5 mg PO BID 12/05/20 02/12/22 History Ammonium Lactate Lotion 1 applic TOPICAL BID PRN 08/28/21 02/12/22 History [Lac-Hydrin 12% Lotion] Lidocaine 5% Oint [Xylocaine 5% 1 applic TOPICAL BID 08/28/21 02/12/22 History Oint] Vit C/E/Zn/Coppr/Lutein/Zeaxan 2 cap PO DAILY 08/28/21 02/12/22 History [Preservision Areds 2 Softgel] Fluticasone/Umeclidin/Vilanter 1 puff INHALATION RT-DAILY 01/01/22 02/12/22 History [Trelegy Ellipta 200-62.5-25] Losartan [Cozaar] 25 mg PO DAILY 01/01/22 02/12/22 History Midodrine [ProAmatine] 5 mg PO TUTHSA PRN 01/01/22 02/12/22 History Nephro-Ann 0.8mg 1 cap PO DAILY 01/01/22 02/12/22 History amLODIPine [Norvasc] 5 mg PO TUTHSA PRN 01/01/22 02/12/22 History carvediloL [Coreg] 3.125 mg PO HS 01/01/22 02/12/22 History Cholecalciferol [Vitamin D3 (25 50 mcg PO DAILY 02/12/22 02/12/22 History Mcg = 1000 Iu)] Allergies Allergy/AdvReac Type Severity Reaction Status Date / Time pentazocine [From Talwin] AdvReac Unknown Verified 02/12/22 17:01 Physical Exam Osteopathic Statement: *. No significant issues noted on an osteopathic structural exam other than those noted in the History and Physical/Consult. Vitals: Vital Signs Temp Pulse Pulse Resp BP Pulse Ox 02/12/22 16:00 79 18 112/73 94 L 02/12/22 14:51 81 02/12/22 14:42 98.1 F 82 18 122/79 85 L Intake and Output 02/12/22 02/12/22 02/12/22 06:59 14:59 22:59 Other: Weight 65 kg General: [Alert and oriented, well nourished, no acute distress, appears chronically debilitated]. Eye: [PERRL, EOMI, normal conjunctiva]. HENT: [Normocephalic, clear tympanic membranes, normal hearing, moist oral mucosa, no scleral icterus, no sinus tenderness]. Neck: [Supple, non-tender, no carotid bruits, no JVD, no lymphadenopathy]. Lungs: [Clear to auscultation and percussion, non-labored respiration]. Heart: [Normal rate, regular rhythm, no murmur, gallop or edema]. Abdomen: [Soft, non-tender, non-distended, normal bowel sounds, no masses]. Musculoskeletal: [Normal range of motion and strength, no tenderness or swelling, left BKA]. Skin: [Skin is warm, dry and pink, no rashes or lesions]. Neurologic: [Awake, alert, and oriented X3, CN II-XII intact]. Psychiatric: [Cooperative, appropriate mood and affect]. Results CBC & Chem 7: 02/12/22 15:02 02/12/22 15:02 Labs: Abnormal Lab Results - Last 24 Hours (Table) 02/12/22 02/12/22 02/12/22 Range/Units 15:02 15: 15:02 MCV 101.4 H (80.0-100.0) fL RDW 15.9 H (11.5-15.5) % PT 12.4 H (9.0-12.0) sec INR 1.2 H (<1.2) APTT 33.8 H (22.0-30.0) sec Chloride 91 L (98-107) mmol/L Carbon Dioxide 34 H (22-30) mmol/L BUN 22 H (7-17) mg/dL Creatinine 3.94 H (0.52-1.04) mg/dL Glucose 167 H (74-99) mg/dL Alkaline Phosphatase 158 H (38-126) U/L Assessment and Plan Assessment: Episode of bradycardia Resolved Hold beta cinthia Cardiology consult End-stage renal disease Consult nephrology Hypertension Blood pressure is within normal limits Resume home BP meds COPD Resume inhalers as needed History of DVT Resume Apixaban Hyperlipidemia Resume statin Chronic pain Resume methadone Diabetes mellitus Continue insulin regimen DVT prophylaxis: Bryce
[2022-02-12 18:58] LABS: Glucose,Whole Blood 109 mg/dL (70-110)
[2022-02-12 20:37] LABS: Glucose,Whole Blood 100 mg/dL (70-110)
[2022-02-12] MEDS: ACETAMINOPHEN TAB 325 MG TAB PO PRN (20:40)
[2022-02-12] MEDS: APIXABAN 2.5 MG TABLET PO SCH (20:40)
[2022-02-12] MEDS: INSULIN DETEMIR (LEVEMIR) 100 UNIT/ML SYR SQ SCH (20:41)
[2022-02-12] MEDS ORDERED: ATORVASTATIN 40 MG TAB PO SCH (21:00)
[2022-02-13] MEDS ORDERED: LEVOTHYROXINE 75 MCG TAB PO SCH (06:30)
[2022-02-13 07:24] LABS: Glucose,Whole Blood 61 mg/dL (70-110)
[2022-02-13] MEDS: INSULIN ASPART (NovoLOG) 100 UNIT/ML VIAL SQ SCH ×2 (07:29→13:19)
[2022-02-13] MEDS: INSULIN DETEMIR (LEVEMIR) 100 UNIT/ML SYR SQ SCH (07:29)
[2022-02-13] MEDS ORDERED: PANTOPRAZOLE 40 MG TABLET PO SCH (07:30)
[2022-02-13] MEDS: APIXABAN 2.5 MG TABLET PO SCH (07:31)
[2022-02-13] MEDS: CALCIUM ACETATE 667 MG TAB PO SCH ×2 (07:31→13:18)
[2022-02-13 07:49] LABS: Glucose,Whole Blood 81 mg/dL (70-110)
[2022-02-13] MEDS: IPRATROPIUM 0.5 MG/2.5 ML NEBU INHALATION SCH ×2 (07:49→11:09)
[2022-02-13] MEDS ORDERED: SYMBICORT 80-4.5 MCG INHALER INHALATION SCH (08:00)
--- NOTE | 2022-02-13 08:44 | P.CRDCN ---
History of Present Illness History of present illness: This is a 71 year old female with a past medical history of paroxysmal atrial fibrillation on Eliquis, hypertension, dyslipidemia, type 2 diabetes, peripheral vascular disease s/p above the knee amputation of left lower extremity, right toe amputations, end stage renal disease on hemodialysis, chronic nicotine dependence (current down to 6-7 cigarettes per day), COPD. She follows with Dr. Mccoy. We are asked to see in consultation for bradycardia. Patient presents to the emergency department from dialysis secondary to documented bradycardia via pulse ox, and patient was sent to the emergency department. EKG via EMS revealed sinus rhythm HR 84. She denies any symptoms. She denies any lightheadedness, dizziness, chest pain, shortness of breath, palpitations, nausea, vomiting, syncope or near syncope. She denies symptoms of orthopnea or PND. Overall she is feeling well. Current every day smoker, smokes around 5 cigarettes per day. Patient denies a history of CAD, MS, stroke. DIAGNOSTICS -EKG reveals sinus rhythm, heart rate 81, nonspecific T-wave abnormalities. No acute ischemia noted. -Telemetry tracings indicate sinus mechanism heart rate 6080s, no significant bradycardia noted. -Chest x-ray reported left basilar atelectasis. -Laboratory reviewed, troponin negative, CBC unremarkable, INR 1.2, sodium 138, potassium 4.7, BUN 22, serum creatinine 3.9, magnesium 1.9 -Current home cardiac medications include losartan 25 mg daily, Lasix 20 mg Friday, carvedilol 3.125 mg twice a day, atorvastatin 40 mg nightly, Eliquis 2.5 mg twice a day. Patient also on methadone, midodrine 5 mg Friday as needed., Amlodipine 5 mg Friday as needed -Echocardiogram in the office 08/29/2021 revealed EF 5560 %, mild mitral regurgitation, mild tricuspid regurgitation -Lexiscan stress test 03/29/2020 revealed no evidence of reversible ischemia REVIEW OF SYSTEMS At the time of my exam: CONSTITUTIONAL: Denies fever or chills. CARDIOVASCULAR: Denies chest pain, shortness of breath, orthopnea, PND or palpitations. RESPIRATORY: Denies cough. GASTROINTESTINAL: Denies abdominal pain, diarrhea, constipation, nausea or vomi ting. MUSCULOSKELETAL: Denies myalgias. NEUROLOGIC: Denies numbness, tingling, headache or weakness. ENDOCRINE: Denies fatigue, weight change, polydipsia or polyurina. GENITOURINARY: Denies burning, hematuria or urgency with micturation. HEMATOLOGIC: Denies history of anemia or bleeding. PHYSICAL EXAMINATION Blood pressure 119/71, heart rate 63, afebrile, saturation 97% on room air CONSTITUTIONAL: No apparent distress. HEENT: Head is normocephalic. Pupils are equal, round. Sclerae anicteric. Mucous membranes of the mouth are moist. No JVD. No carotid bruit. CHEST EXAMINATION: Lungs are mild crackles in the bases to auscultation. No chest wall tenderness is noted on palpation or with deep breathing. HEART EXAMINATION: Regular rate and rhythm. S1, S2 heard. No murmurs, gallops or rub. ABDOMEN: Soft, nontender. Positive bowel sounds. EXTREMITIES: 2+ peripheral pulses, no lower extremity edema and no calf tenderness. Left above the knee amputation NEUROLOGIC EXAMINATION: Patient is awake, alert and oriented x3. ASSESSMENT Bradycardia during dialysis, asymptomatic, resolved Paroxysmal atrial fibrillation on Eliquis Hypertension Dyslipidemia Type 2 diabetes Peripheral vascular disease s/p above the knee amputation of left lower extremity, right toe amputations End stage renal disease on hemodialysis Chronic nicotine dependence Thoracic aortic aneurysm PLAN Coreg on hold, recommend continue to hold No documented bradycardia on telemetry or EKG since admission 2D echocardiogram Continue home anticoagulation, losartan, statin. No further inpatient workup from a cardiology perspective, continue to hold beta cinthia, patient to follow up with Dr. Mccoy in the office and evaluated for 24 hour holter monitor in the office Nurse practitioner note has been reviewed by physician. Signing provider agrees with the documented findings, assessment, and plan of care. Past Medical History Past Medical History: Atrial Fibrillation, Cancer, COPD, Diabetes Mellitus, Eye Disorder, Hyperlipidemia, Hypertension, Renal Disease, Vascular Disorder Additional Past Medical History / Comment(s): Recent vulvar cancer with surgery, IDDM type II, neuropathy, ESRD with hemodialysis T//, kidney cysts, anemia, PVD/L AKA, pt thinks DVTs R leg/L arm, past R leg wound, macular degeneration bilaterally/legally blind, chronic back pain, scoliosis, History of Any Multi-Drug Resistant Organisms: MRSA Date of last positivie culture/infection: 2015 MDRO Source:: left leg Past Surgical History: Adenoidectomy, Orthopedic Surgery, Tonsillectomy Additional Past Surgical History / Comment(s): Recent total vulvectomy at [facility] in [facility], L arm dialysis graft/multiple surgeries to repair, R arm fistula, L AKA, L chest port, surgery on L arm and R leg pt thinks to remove blood clots, vulva surgery Past Anesthesia/Blood Transfusion Reactions: No Reported Reaction Additional Past Anesthesia/Blood Transfusion Reaction / Comment(s): no problems with prior blood transfusions Past Psychological History: Anxiety Smoking Status: Current every day smoker, Light tobacco smoker Past Alcohol Use History: None Reported Past Drug Use History: None Reported - Past Family History Mother Additional Family Medical History / Comment(s): Mother of liver cirrhosis at the age of 34yrs. Father Family Medical History: Eye Disorder Additional Family Medical History / Comment(s): Macular degeneration. He at age 93 family Family Medical History: Unable to Obtain Medications and Allergies Home Medications Medication Instructions Recorded Confirmed Type ALPRAZolam [Xanax] 1 mg PO Q8H PRN 04/18/20 02/12/22 History Atorvastatin [Lipitor] 40 mg PO HS 04/18/20 02/12/22 History Calcium Acetate [PhosLo] 1,334 mg PO TID-W/MEALS 04/18/20 02/12/22 History Insulin Degludec [Tresiba 10 units SQ DAILY 04/18/20 02/12/22 History Flextouch U-100 Pen] Levocetirizine Dihydrochloride 5 mg PO DAILY 04/18/20 02/12/22 History Levothyroxine Sodium [Synthroid] 150 mcg PO DAILY 04/18/20 02/12/22 History Methadone HCl [Methadone Intensol] 125 mg PO DAILY 04/18/20 02/13/22 History Omeprazole 20 mg PO DAILY 04/18/20 02/12/22 History Furosemide [Lasix] 20 mg PO SUMOWEFR 05/20/20 02/12/22 History Insulin Lispro [humaLOG Kwikpen] See Protocol SQ AC-TID 05/20/20 02/12/22 History Apixaban [Eliquis] 2.5 mg PO BID 12/05/20 02/12/22 History Ammonium Lactate Lotion 1 applic TOPICAL BID PRN 08/28/21 02/12/22 History [Lac-Hydrin 12% Lotion] Lidocaine 5% Oint [Xylocaine 5% 1 applic TOPICAL BID 08/28/21 02/12/22 History Oint] Vit C/E/Zn/Coppr/Lutein/Zeaxan 2 cap PO DAILY 08/28/21 02/12/22 History [Preservision Areds 2 Softgel] Fluticasone/Umeclidin/Vilanter 1 puff INHALATION RT-DAILY 01/01/22 02/12/22 History [Trelegy Ellipta 200-62.5-25] Losartan [Cozaar] 25 mg PO DAILY 01/01/22 02/12/22 History Midodrine [ProAmatine] 5 mg PO TUTHSA PRN 01/01/22 02/12/22 History Nephro-Ann 0.8mg 1 cap PO DAILY 01/01/22 02/12/22 History amLODIPine [Norvasc] 5 mg PO TUTHSA PRN 01/01/22 02/12/22 History Cholecalciferol [Vitamin D3 (25 50 mcg PO DAILY 02/12/22 02/12/22 History Mcg = 1000 Iu)] Allergies Allergy/AdvReac Type Severity Reaction Status Date / Time pentazocine [From Kimmie] AdvReac Unknown Verified 02/12/22 17:01 Physical Exam Vitals: Vital Signs Temp Pulse Pulse Resp BP BP Pulse Ox 02/13/22 02:30 98.0 F 65 17 114/65 97 02/12/22 19:43 98.1 F 67 19 122/67 98 02/12/22 19:17 97.3 F L 67 18 109/67 95 02/12/22 18:00 65 18 136/78 92 L 02/12/22 17:00 72 18 120/68 94 L 02/12/22 16:00 79 18 112/73 94 L 02/12/22 14:51 81 02/12/22 14:42 98.1 F 82 18 122/79 85 L Intake and Output 02/12/22 02/13/22 02/13/22 22:59 06:59 14:59 Other: # Voids 1 2 # Bowel Movements 1 Weight 65 kg Results 02/12/22 15:02 02/12/22 15:02 Cardiac Enzymes 02/12/22 02/12/22 Range/Units 15:02 15:02 AST 23 (14-36) U/L Troponin I <0.012 (0.000-0.034) ng/mL Coagulation 02/12/22 Range/Units 15:02 PT 12.4 H (9.0-12.0) sec APTT 33.8 H (22.0-30.0) sec CBC 02/12/22 Range/Units 15:02 WBC 9.9 (3.8-10.6) k/uL RBC 4.14 (3.80-5.40) m/uL Hgb 13.4 (11.4-16.0) gm/dL Hct 42.0 (34.0-46.0) % Plt Count 207 (150-450) k/uL Comprehensive Metabolic Panel 02/12/22 Range/Units 15:02 Sodium 138 (137-145) mmol/L Potassium 4.7 (3.5-5.1) mmol/L Chloride 91 L (98-107) mmol/L Carbon Dioxide 34 H (22-30) mmol/L BUN 22 H (7-17) mg/dL Creatinine 3.94 H (0.52-1.04) mg/dL Glucose 167 H (74-99) mg/dL Calcium 8.6 (8.4-10.2) mg/dL AST 23 (14-36) U/L ALT 14 (4-34) U/L Alkaline Phosphatase 158 H (38-126) U/L Total Protein 7.4 (6.3-8.2) g/dL Albumin 4.0 (3.5-5.0) g/dL Current Medications Generic Name Dose Route Start Last Admin Trade Name Freq PRN Reason Stop Dose Admin Acetaminophen 650 mg 02/12/22 16:23 02/12/22 20:40 Acetaminophen Tab 325 Mg Tab PO 650 mg Q6HR PRN Administration Mild Pain or Fever > 100.5 Alprazolam 1 mg 02/12/22 17:37 Alprazolam 1 Mg Tab PO Q8H PRN Anxiety Amlodipine Besylate 5 mg 02/14/22 09:00 Amlodipine 5 Mg Tab PO TUTHSA PRN high bp @dialysis Apixaban 2.5 mg 02/12/22 21:00 02/12/22 20:40 Apixaban 2.5 Mg Tablet PO 2.5 mg BID [place] Administration Protocol Atorvastatin Calcium 40 mg 02/12/22 21:00 02/12/22 20:40 Atorvastatin 40 Mg Tab PO 40 mg HS [facility] Administration Budesonide/Formoterol Fumarate 2 puff 02/13/22 08:00 Symbicort 80-4.5 Mcg Inhaler INHALATION RT-BID [facility] Calcium Acetate 1,334 mg 02/13/22 07:30 Calcium Acetate 667 Mg Tab PO TID-W/MEALS [facility] Cholecalciferol 50 mcg 02/13/22 09:00 Cholecalciferol 25 Mcg (1000 Iu) Tablet PO DAILY [place] Dextrose/Water 50 ml 02/12/22 17:41 Dextrose 50% Syringe 50 Ml IVP PER PROTOCOL PRN Hypoglycemia Protocol Dextrose/Water 25 ml 02/12/22 17:41 Dextrose 50% Syringe 50 Ml IVP PER PROTOCOL PRN Hypoglycemia Protocol Furosemide 20 mg 02/13/22 09:00 Furosemide 20 Mg Tab PO SUMOWEFR [facility] Insulin Aspart 7 unit 02/13/22 07:30 Insulin Aspart (Novolog) 100 Unit/Ml Vial 0.1 unit/kg (7 unit) SQ AC-TID [facility] Insulin Detemir 10 unit 02/12/22 21:00 02/12/22 20:41 Insulin Detemir (Levemir) 100 Unit/Ml Syr 0.15 unit/kg (10 unit) Not Given SQ BID [facility] Ipratropium [place] 0.5 mg 02/13/22 08:00 Ipratropium 0.5 Mg/2.5 Ml Nebu INHALATION RT-QID [facility] Levothyroxine Sodium 150 mcg 02/13/22 06:30 02/13/22 05:20 Levothyroxine 75 Mcg Tab PO 150 mcg DAILY@0630 [place] Administration Loratadine 10 mg 02/13/22 09:00 Loratadine 10 Mg Tab PO DAILY [facility] Losartan Potassium 25 mg 02/13/22 09:00 Losartan 25 Mg Tab PO DAILY [facility] Midodrine 5 mg 02/14/22 09:00 Midodrine 5 Mg Tab PO TUTHSA PRN low bp @dialysis Multivit/Ca Carb/B Cmplx/FA/Prenat 1 each 02/13/22 09:00 Folic Acid-Vit B Complex-Vit C 1 Cap PO DAILY [facility] Naloxone HCl 0.2 mg 02/12/22 16:23 Naloxone 0.4 Mg/Ml 1 Ml Vial IV Q2M PRN Opioid Reversal Non-Formulary Medication 135 mg 02/13/22 09:00 Methadone Hcl [Methadone Intensol] PO DIRECTED [place] Pantoprazole Sodium 40 mg 02/13/22 07:30 Pantoprazole 40 Mg Tablet PO DAILY@0730 [place] Intake and Output 02/12/22 02/13/22 02/13/22 22:59 06:59 14:59 Other: # Voids 1 2 # Bowel Movements 1 Weight 65 kg 02/12/22 15:02 02/12/22 15:02
[2022-02-13] MEDS ORDERED: METHADONE 10 MG TAB PO SCH (09:00)
[2022-02-13] MEDS ORDERED: FUROSEMIDE 20 MG TAB PO SCH (09:00)
[2022-02-13] MEDS ORDERED: LOSARTAN 25 MG TAB PO SCH (09:00)
[2022-02-13] MEDS ORDERED: NON FORMULARY DRUG (Methadone Hcl [Methadone Intensol] 10 MG/ML Oral.Conc) PO SCH (09:00)
[2022-02-13] MEDS ORDERED: LORATADINE 10 MG TAB PO SCH (09:00)
[2022-02-13] MEDS ORDERED: FOLIC ACID-VIT B COMPLEX-VIT C 1 CAP PO SCH (09:00)
[2022-02-13] MEDS ORDERED: CHOLECALCIFEROL 25 MCG (1000 IU) TABLET PO SCH (09:00)
[2022-02-13 11:45] VITALS: BP 118/74; PULSE 60; RESP 13; TEMP 98.5
[2022-02-13 12:13] LABS: Glucose,Whole Blood 72 mg/dL (70-110)
[2022-02-13] MEDS: ACETAMINOPHEN TAB 325 MG TAB PO PRN (13:18)
--- NOTE | 2022-02-13 14:11 | P.DS ---
Providers Date of admission: 02/12/22 17:27 Expected date of discharge: 02/13/22 Attending physician: Isaura Krueger MD Consults: 02/12/22 16:23 Consult Physician Routine Consulting Provider: Rohit Smiley Consult Reason/Comments: bradycardia at dialysis Do you want consulting provider notified?: Yes, Notify in am Consult Physician Routine Consulting Provider: Analisa Barrientos Consult Reason/Comments: CKD, dialysis Do you want consulting provider notified?: Yes, Notify in am Primary care physician: Souleymane Shah [facility] Hospital Course: Discharge Diagnosis: Episode of bradycardia End-stage renal disease Hypertension COPD History of DVT Hyperlipidemia Chronic pain Diabetes mellitus Hospital Course: Patient is 71-year-old female with a past medical history diabetes mellitus, hypertension and end-stage renal disease on hemodialysis Friday, Friday, COPD, history of DVT who was sent from hemodialysis because she was bradycardic. Patient is on Coreg however daughter at bedside said that she did not give any of her blood pressure medicines before dialysis. Patient denies any chest pain or lightheadedness. In the ED patient was not bradycardic. Also EKG shows sinus rhythm. Patient was admitted for further monitoring. During hospitalization patient did not have any further episodes of bradycardia. Patient was seen by cardiology and deemed her stable for discharge. Cardiology recommended to hold the Coreg and to follow up outpatient for loop recorder. At the time of discharge patient denied any acute complaints. She is looking forward to going home. Patient seen and examined at bedside.[] Vital signs reviewed and stable. 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 Plan - Discharge Summary New Discharge Prescriptions: Continue Insulin Degludec [Tresiba Flextouch U-100 Pen] 10 units SQ DAILY Omeprazole 20 mg PO DAILY Levothyroxine Sodium [Synthroid] 150 mcg PO DAILY Levocetirizine Dihydrochloride 5 mg PO DAILY Atorvastatin [Lipitor] 40 mg PO HS Calcium Acetate [PhosLo] 1,334 mg PO TID-W/MEALS ALPRAZolam [Xanax] 1 mg PO Q8H PRN PRN Reason: Anxiety Methadone HCl [Methadone Intensol] 125 mg PO DAILY Insulin Lispro [humaLOG Kwikpen] See Protocol SQ AC-TID Furosemide [Lasix] 20 mg PO SUMOWEFR Fluticasone/Umeclidin/Vilanter [Trelegy Ellipta 200-62.5-25] 1 puff INHALATION RT-DAILY Midodrine [ProAmatine] 5 mg PO TUTHSA PRN PRN Reason: low bp @dialysis Nephro-Ann 0.8mg 1 cap PO DAILY Losartan [Cozaar] 25 mg PO DAILY Cholecalciferol [Vitamin D3 (25 Mcg = 1000 Iu)] 50 mcg PO DAILY Apixaban [Eliquis] 2.5 mg PO BID Ammonium Lactate Lotion [Lac-Hydrin 12% Lotion] 1 applic TOPICAL BID PRN PRN Reason: Dry Skin Vit C/E/Zn/Coppr/Lutein/Zeaxan [Preservision Areds 2 Softgel] 2 cap PO DAILY Lidocaine 5% Oint [Xylocaine 5% Oint] 1 applic TOPICAL BID amLODIPine [Norvasc] 5 mg PO TUTHSA PRN PRN Reason: high bp @dialysis Discontinued carvediloL [Coreg] 3.125 mg PO SUMOWEFR@0900 carvediloL [Coreg] 3.125 mg PO HS Discharge Medication List ALPRAZolam [Xanax] 1 mg PO Q8H PRN 04/18/20 [History] Atorvastatin [Lipitor] 40 mg PO HS 04/18/20 [History] Calcium Acetate [PhosLo] 1,334 mg PO TID-W/MEALS 04/18/20 [History] Insulin Degludec [Tresiba Flextouch U-100 Pen] 10 units SQ DAILY 04/18/20 [History] Levocetirizine Dihydrochloride 5 mg PO DAILY 04/18/20 [History] Levothyroxine Sodium [Synthroid] 150 mcg PO DAILY 04/18/20 [History] Methadone HCl [Methadone Intensol] 125 mg PO DAILY 04/18/20 [History] Omeprazole 20 mg PO DAILY 04/18/20 [History] Furosemide [Lasix] 20 mg PO SUMOWEFR 05/20/20 [History] Insulin Lispro [humaLOG Kwikpen] See Protocol SQ AC-TID 05/20/20 [History] Apixaban [Eliquis] 2.5 mg PO BID 12/05/20 [History] Ammonium Lactate Lotion [Lac-Hydrin 12% Lotion] 1 applic TOPICAL BID PRN 2 [History] Lidocaine 5% Oint [Xylocaine 5% Oint] 1 applic TOPICAL BID 08/28/21 [History] Vit C/E/Zn/Coppr/Lutein/Zeaxan [Preservision Areds 2 Softgel] 2 cap PO DAILY 08/28/21 [History] Fluticasone/Umeclidin/Vilanter [Trelegy Ellipta 200-62.5-25] 1 puff INHALATION RT-DAILY 01/01/22 [History] Losartan [Cozaar] 25 mg PO DAILY 01/01/22 [History] Midodrine [ProAmatine] 5 mg PO TUTHSA PRN 01/01/22 [History] Nephro-Ann 0.8mg 1 cap PO DAILY 01/01/22 [History] amLODIPine [Norvasc] 5 mg PO TUTHSA PRN 01/01/22 [History] Cholecalciferol [Vitamin D3 (25 Mcg = 1000 Iu)] 50 mcg PO DAILY 02/12/22 [History] Follow up Appointment(s)/Referral(s): Souleymane Celaya DO [Primary Care Provider] - 1-2 days Monique Mccoy MD [STAFF PHYSICIAN] - 10 Days Discharge Disposition: HOME SELF-CARE
--- NOTE | 2022-02-13 18:25 | P.NPCON ---
History of Present Illness - Reason for Consult end stage renal disease - History of Present Illness Pt is a 71 yr old female on HD on a TTS schedule. Pt was admitted from the dialysis unit as HR was in the 40s. Not on beta blockers HR currently 60-80/ min No other complaints. BP was not significantly low at the dialysis unit. BP 109-119 mmHg systolic No h/o fever, abdominal pain Review of Systems as per HPI Past Medical History Past Medical History: Atrial Fibrillation, Cancer, COPD, Diabetes Mellitus, Eye Disorder, Hyperlipidemia, Hypertension, Renal Disease, Vascular Disorder Additional Past Medical History / Comment(s): Recent vulvar cancer with surgery, IDDM type II, neuropathy, ESRD with hemodialysis T//, kidney cysts, anemia, PVD/L AKA, pt thinks DVTs R leg/L arm, past R leg wound, macular degeneration bilaterally/legally blind, chronic back pain, scoliosis, History of Any Multi-Drug Resistant Organisms: MRSA Date of last positivie culture/infection: 2015 MDRO Source:: left leg Past Surgical History: Adenoidectomy, Orthopedic Surgery, Tonsillectomy Additional Past Surgical History / Comment(s): Recent total vulvectomy at [facility] in [facility], L arm dialysis graft/multiple surgeries to repair, R arm fistula, L AKA, L chest port, surgery on L arm and R leg pt thinks to remove blood clots, vulva surgery Past Anesthesia/Blood Transfusion Reactions: No Reported Reaction Additional Past Anesthesia/Blood Transfusion Reaction / Comment(s): no problems with prior blood transfusions Past Psychological History: Anxiety Smoking Status: Current every day smoker, Light tobacco smoker Past Alcohol Use History: None Reported Past Drug Use History: None Reported - Past Family History Mother Additional Family Medical History / Comment(s): Mother of liver cirrhosis at the age of 34yrs. Father Family Medical History: Eye Disorder Additional Family Medical History / Comment(s): Macular degeneration. He at age 93 family Family Medical History: Unable to Obtain Medications and Allergies Home Medications Medication Instructions Recorded Confirmed Type ALPRAZolam [Xanax] 1 mg PO Q8H PRN 04/18/20 02/12/22 History Atorvastatin [Lipitor] 40 mg PO HS 04/18/20 02/12/22 History Calcium Acetate [PhosLo] 1,334 mg PO TID-W/MEALS 04/18/20 02/12/22 History Insulin Degludec [Tresiba 10 units SQ DAILY 04/18/20 02/12/22 History Flextouch U-100 Pen] Levocetirizine Dihydrochloride 5 mg PO DAILY 04/18/20 02/12/22 History Levothyroxine Sodium [Synthroid] 150 mcg PO DAILY 04/18/20 02/12/22 History Methadone HCl [Methadone Intensol] 125 mg PO DAILY 04/18/20 02/13/22 History Omeprazole 20 mg PO DAILY 04/18/20 02/12/22 History Furosemide [Lasix] 20 mg PO SUMOWEFR 05/20/20 02/12/22 History Insulin Lispro [humaLOG Kwikpen] See Protocol SQ AC-TID 05/20/20 02/12/22 History Apixaban [Eliquis] 2.5 mg PO BID 12/05/20 02/12/22 History Ammonium Lactate Lotion 1 applic TOPICAL BID PRN 08/28/21 02/12/22 History [Lac-Hydrin 12% Lotion] Lidocaine 5% Oint [Xylocaine 5% 1 applic TOPICAL BID 08/28/21 02/12/22 History Oint] Vit C/E/Zn/Coppr/Lutein/Zeaxan 2 cap PO DAILY 08/28/21 02/12/22 History [Preservision Areds 2 Softgel] Fluticasone/Umeclidin/Vilanter 1 puff INHALATION RT-DAILY 01/01/22 02/12/22 History [Trelegy Ellipta 200-62.5-25] Losartan [Cozaar] 25 mg PO DAILY 01/01/22 02/12/22 History Midodrine [ProAmatine] 5 mg PO TUTHSA PRN 01/01/22 02/12/22 History Nephro-Ann 0.8mg 1 cap PO DAILY 01/01/22 02/12/22 History amLODIPine [Norvasc] 5 mg PO TUTHSA PRN 01/01/22 02/12/22 History Cholecalciferol [Vitamin D3 (25 50 mcg PO DAILY 02/12/22 02/12/22 History Mcg = 1000 Iu)] Allergies Allergy/AdvReac Type Severity Reaction Status Date / Time pentazocine [From Kimmie] AdvReac Unknown Verified 02/12/22 17:01 Physical Exam Vitals: Vital Signs Temp Pulse Pulse Resp BP BP Pulse Ox 02/13/22 11:43 98.5 F 60 13 118/74 94 L 02/13/22 07:59 72 02/13/22 07:49 72 02/13/22 07:41 97.9 F 63 16 119/71 97 02/13/22 02:30 98.0 F 65 17 114/65 97 02/12/22 19:43 98.1 F 67 19 122/67 98 02/12/22 19:17 97.3 F L 67 18 109/67 95 Intake and Output 02/13/22 02/13/22 02/13/22 06:59 14:59 22:59 Other: # Voids 2 0 Pt is awake, comfortable, No acute distress. Alert and oriented x3 Lungs are clear CVS S1 and S2 Abdomen is soft, nontender. 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 Results - Lab Results Most recent lab results Calcium 8.6 mg/dL (8.4-10.2) 02/12/22 15:02 Magnesium 1.9 mg/dL (1.6-2.3) 02/12/22 15:02 02/12/22 15:02 02/12/22 15:02 Assessment and Plan Assessment: 1. ESRD, on HD on TTS schedule 2. Bradycardia, HR improved. H/o previous episode of bradycardia as well. No beta blockers on board. Check TSH 3. CKD mineral bone disorder. 4. PVOD, s/p Left AKA. Plan: HD in am Check TSH F/u with cardiology.
[2022-02-14] MEDS ORDERED: amLODIPine 5 MG TAB PO PRN (09:00)
[2022-02-14] MEDS ORDERED: MIDODRINE 5 MG TAB PO PRN (09:00)
== END 2022-02-13 14:48 | disposition home or self-care (01) ==
LOC: EC 14:26 → 6NMEDSUR 17:27
PROVIDERS: ADMIT Internal Medicine; ATTEND Internal Medicine
DX: R00.1 Bradycardia, unspecified (principal); I13.2 Hypertensive heart and chronic kidney disease with heart failure and with stage 5 chronic kidney disease, or end stage renal disease; E11.22 Type 2 diabetes mellitus with diabetic chronic kidney disease; N18.6 End stage renal disease; I50.9 Heart failure, unspecified; H54.8 Legal blindness, as defined in USA; J98.11 Atelectasis; I70.0 Atherosclerosis of aorta; F17.210 Nicotine dependence, cigarettes, uncomplicated; J44.9 Chronic obstructive pulmonary disease, unspecified; G89.29 Other chronic pain; M41.9 Scoliosis, unspecified; E11.51 Type 2 diabetes mellitus with diabetic peripheral angiopathy without gangrene; I71.2 Thoracic aortic aneurysm, without rupture; D64.9 Anemia, unspecified; E78.5 Hyperlipidemia, unspecified; I48.0 Paroxysmal atrial fibrillation; E11.40 Type 2 diabetes mellitus with diabetic neuropathy, unspecified; F41.9 Anxiety disorder, unspecified; Z99.2 Dependence on renal dialysis; Z79.01 Long term (current) use of anticoagulants; Z79.899 Other long term (current) drug therapy; Z79.4 Long term (current) use of insulin; Z79.890 Hormone replacement therapy; Z85.44 Personal history of malignant neoplasm of other female genital organs; Z89.612 Acquired absence of left leg above knee; Z82.1 Family history of blindness and visual loss; Z84.89 Family history of other specified conditions; Z86.718 Personal history of other venous thrombosis and embolism; Z89.421 Acquired absence of other right toe(s)
CPT/HCPCS: 99285; 36415; 94640 ×2; 93005; 93306; 80053; 83735; 84484; 85025; 85610; 85730; 71046; G0378 ×2; S0109

== ENCOUNTER 2022-03-02 14:40 | Inpatient (IN) | payer MEDICARE, OTHER ==
--- NOTE | 2022-03-02 15:26 | ED ---
Altered Mental Status HPI - General Chief Complaint: Altered Mental Status Stated Complaint: cough, revisit,low OT Time Seen by Provider: 03/02/22 15:02 Source: patient Mode of arrival: wheelchair Limitations: no limitations - History of Present Illness Initial Comments: This patient is a 71-year-old woman who presents to have evaluation for altered mental status. Patient history is given mainly by the daughter as the patient appears delirious and not answering questions. The patient was in usual state of health through yesterday and then in the evening began to become more disoriented. She reportedly would get lost in the home when she was ambulating to the bathroom and back. Patient's daughter attempted to get her to come to the hospital this morning when the patient was not right. The patient was not able to keep her usually scheduled dialysis this morning. She became more somnolent and then was not able to resist going to the hospital and they brought her here for evaluation. Patient is not answering any questions for me. MD Complaint: altered mental status, confusion, decreased responsiveness Onset/Timin -: days(s) Severity: severe Consistency of Symptoms: getting worse Context: COPD, other (History of dialysis) - Related Data Home Medications Medication Instructions Recorded Confirmed ALPRAZolam [Xanax] 1 mg PO Q8H PRN 04/18/20 03/02/22 Atorvastatin [Lipitor] 40 mg PO HS 04/18/20 03/02/22 Calcium Acetate [PhosLo] 1,334 mg PO TID-W/MEALS 04/18/20 03/02/22 Insulin Degludec [Tresiba 10 units SQ DAILY 04/18/20 03/02/22 Flextouch U-100 Pen] Levocetirizine Dihydrochloride 5 mg PO BID 04/18/20 03/02/22 Levothyroxine Sodium [Synthroid] 150 mcg PO DAILY 04/18/20 03/02/22 Methadone HCl [Methadone Intensol] 125 mg PO DAILY 04/18/20 03/04/22 Omeprazole 20 mg PO DAILY 04/18/20 03/02/22 Furosemide [Lasix] 20 mg PO SUMOWEFR 05/20/20 03/02/22 Insulin Lispro [humaLOG Kwikpen] See Protocol SQ AC-TID 05/20/20 03/02/22 Apixaban [Eliquis] 2.5 mg PO BID 12/05/20 03/02/22 Ammonium Lactate Lotion 1 applic TOPICAL BID PRN 08/28/21 03/02/22 [Lac-Hydrin 12% Lotion] Lidocaine 5% Oint [Xylocaine 5% 1 applic TOPICAL BID 08/28/21 03/02/22 Oint] Vit C/E/Zn/Coppr/Lutein/Zeaxan 2 cap PO DAILY 08/28/21 03/02/22 [Preservision Areds 2 Softgel] Fluticasone/Umeclidin/Vilanter 1 puff INHALATION RT-DAILY 01/01/22 03/02/22 [Trelegy Ellipta 200-62.5-25] Nephro-Ann 0.8mg 1 cap PO DAILY 01/01/22 03/02/22 Cholecalciferol [Vitamin D3 (25 50 mcg PO DAILY 02/12/22 03/02/22 Mcg = 1000 Iu)] Previous Rx's Medication Instructions Recorded guaiFENesin [Mucinex] 600 mg PO Q12HR #10 tab 03/08/22 predniSONE [Deltasone] 40 mg PO DAILY #4 tab 03/08/22 Allergies Allergy/AdvReac Type Severity Reaction Status Date / Time pentazocine [From Talwin] AdvReac Unknown Verified 03/02/22 19:41 Review of Systems ROS Statement: Those systems with pertinent positive or pertinent negative responses have been documented in the HPI. ROS Other: All systems not noted in ROS Statement are negative. Limitations: ROS unobtainable due to patients medical condition Constitutional: Denies: fever Respiratory: Denies: cough Gastrointestinal: Denies: vomiting Past Medical History Past Medical History: Atrial Fibrillation, Cancer, COPD, Diabetes Mellitus, Eye Disorder, Hyperlipidemia, Hypertension, Renal Disease, Vascular Disorder Additional Past Medical History / Comment(s): Recent vulvar cancer with surgery, IDDM type II, neuropathy, ESRD with hemodialysis T//, kidney cysts, anemia, PVD/L AKA, pt thinks DVTs R leg/L arm, past R leg wound, macular degeneration bilaterally/legally blind, chronic back pain, scoliosis, History of Any Multi-Drug Resistant Organisms: MRSA Date of last positivie culture/infection: 2015 MDRO Source:: left leg Past Surgical History: Adenoidectomy, Orthopedic Surgery, Tonsillectomy Additional Past Surgical History / Comment(s): Recent total vulvectomy at [facility] in [facility], L arm dialysis graft/multiple surgeries to repair, R arm fistula, L AKA, L chest port, surgery on L arm and R leg pt thinks to remove blood clots, vulva surgery Past Anesthesia/Blood Transfusion Reactions: No Reported Reaction Additional Past Anesthesia/Blood Transfusion Reaction / Comment(s): no problems with prior blood transfusions Past Psychological History: Anxiety Smoking Status: Current every day smoker, Light tobacco smoker Past Alcohol Use History: None Reported Past Drug Use History: None Reported - Past Family History Mother Additional Family Medical History / Comment(s): Mother of liver cirrhosis at the age of 34yrs. Father Family Medical History: Eye Disorder Additional Family Medical History / Comment(s): Macular degeneration. He at age 93 family Family Medical History: Unable to Obtain General Exam Limitations: no limitations General appearance: obtunded Head exam: Present: atraumatic Neck exam: Present: normal inspection Respiratory exam: Present: rales. Absent: wheezes, rhonchi, stridor, accessory muscle use Cardiovascular Exam: Present: regular rate, normal rhythm, normal heart sounds. Absent: systolic murmur, diastolic murmur, rubs, gallop GI/Abdominal exam: Present: soft. Absent: distended, tenderness, guarding, rebound, rigid, mass Extremities exam: Present: pedal edema (There is edema throughout the right lower extremity), other (There is a left sided above-knee amputation.). Absent: calf tenderness Neurological exam: Present: altered, reflexes normal. Absent: oriented X3 Skin exam: Present: warm, dry, intact, normal color. Absent: rash Course Vital Signs 03/02/22 03/02/22 03/02/22 14:44 15:10 15:20 Temperature 98.1 F Pulse Rate 86 73 Respiratory 16 16 18 Rate Blood Pressure 152/74 136/83 O2 Sat by Pulse 84 L 98 Oximetry Medical Decision Making - Lab Data Result diagrams: 03/05/22 08:50 03/06/22 08:38 Lab Results 03/02/22 03/02/22 03/02/22 Range/Units 15:47 15:47 15:47 WBC 16.9 H (3.8-10.6) k/uL RBC 3.53 L (3.80-5.40) m/uL Hgb 11.2 L (11.4-16.0) gm/dL Hct 34.8 (34.0-46.0) % MCV 98.8 (80.0-100.0) fL MCH 31.6 (25.0-35.0) pg MCHC 32.0 (31.0-37.0) g/dL RDW 14.4 (11.5-15.5) % Plt Count 219 (150-450) k/uL MPV 9.3 Neutrophils % 86 % Lymphocytes % 7 % Monocytes % 5 % Eosinophils % 1 % Basophils % 0 % Neutrophils # 14.6 H (1.3-7.7) k/uL Lymphocytes # 1.2 (1.0-4.8) k/uL Monocytes # 0.8 (0-1.0) k/uL Eosinophils # 0.2 (0-0.7) k/uL Basophils # 0.1 (0-0.2) k/uL Hypochromasia Slight PT 14.4 H (9.0-12.0) sec INR 1.4 H (<1.2) APTT 36.1 H (22.0-30.0) sec VBG pH (7.31-7.41) VBG pCO2 (37-51) mmHg VBG HCO3 (24-28) mmol/L Sodium 137 (137-145) mmol/L Potassium 6.3 H* (3.5-5.1) mmol/L Chloride 90 L (98-107) mmol/L Carbon Dioxide 26 (22-30) mmol/L Anion Gap 21 mmol/L BUN 67 H (7-17) mg/dL Creatinine 7.40 H* (0.52-1.04) mg/dL Est GFR (CKD-EPI)AfAm 6 (>60 ml/min/1.73 sqM) Est GFR (CKD-EPI)NonAf 5 (>60 ml/min/1.73 sqM) Glucose 187 H (74-99) mg/dL Calcium 8.9 (8.4-10.2) mg/dL Total Bilirubin 0.4 (0.2-1.3) mg/dL AST 19 (14-36) U/L ALT 12 (4-34) U/L Alkaline Phosphatase 145 H (38-126) U/L Ammonia (<30) umol/L Troponin I (0.000-0.034) ng/mL Total Protein 6.8 (6.3-8.2) g/dL Albumin 3.5 (3.5-5.0) g/dL 03/02/22 03/02/22 03/02/22 Range/Units 15:47 15:47 15:47 WBC (3.8-10.6) k/uL RBC (3.80-5.40) m/uL Hgb (11.4-16.0) gm/dL Hct (34.0-46.0) % MCV (80.0-100.0) fL MCH (25.0-35.0) pg MCHC (31.0-37.0) g/dL RDW (11.5-15.5) % Plt Count (150-450) k/uL MPV Neutrophils % % Lymphocytes % % Monocytes % % Eosinophils % % Basophils % % Neutrophils # (1.3-7.7) k/uL Lymphocytes # (1.0-4.8) k/uL Monocytes # (0-1.0) k/uL Eosinophils # (0-0.7) k/uL Basophils # (0-0.2) k/uL Hypochromasia PT (9.0-12.0) sec INR (<1.2) APTT (22.0-30.0) sec VBG pH 7.30 L (7.31-7.41) VBG pCO2 66 H (37-51) mmHg VBG HCO3 31 H (24-28) mmol/L Sodium (137-145) mmol/L Potassium (3.5-5.1) mmol/L Chloride (98-107) mmol/L Carbon Dioxide (22-30) mmol/L Anion Gap mmol/L BUN (7-17) mg/dL Creatinine (0.52-1.04) mg/dL Est GFR (CKD-EPI)AfAm (>60 ml/min/1.73 sqM) Est GFR (CKD-EPI)NonAf (>60 ml/min/1.73 sqM) Glucose (74-99) mg/dL Calcium (8.4-10.2) mg/dL Total Bilirubin (0.2-1.3) mg/dL AST (14-36) U/L ALT (4-34) U/L Alkaline Phosphatase (38-126) U/L Ammonia 25 (<30) umol/L Troponin I 0.017 (0.000-0.034) ng/mL Total Protein (6.3-8.2) g/dL Albumin (3.5-5.0) g/dL - EKG Data -: EKG Interpreted by Me EKG shows normal: sinus rhythm, intervals (Normal), QRS complexes (Low voltage QRS complex), ST-T waves (Normal) Rate: normal (Rate 76 bpm) Disposition Clinical Impression: ESRD (end stage renal disease) on dialysis, Uremia, Hypercapnia, Hyperkalemia, Altered mental status Disposition: ADMITTED IP TO THIS HOSP Condition: Stable Is patient prescribed a controlled substance at d/c from ED?: No
[2022-03-02 16:14] LABS: Basophils # (A) 0.1 k/uL (0-0.2); Basophils % (A) 0 %; Eosinophils # (A) 0.2 k/uL (0-0.7); Eosinophils % (A) 1 %; HCT 34.8 % (34.0-46.0); HGB 11.2 gm/dL (11.4-16.0); Hypochromasia Slight; Lymphocytes # (A) 1.2 k/uL (1.0-4.8); Lymphocytes % (A) 7 %; MCH 31.6 pg (25.0-35.0); MCV 98.8 fL (80.0-100.0); Mean Platelet Volume 9.3; Monocytes # (A) 0.8 k/uL (0-1.0); Monocytes % (A) 5 %; Neutrophils # (A) 14.6 k/uL (1.3-7.7); Neutrophils % (A) 86 %; Platelet Count 219 k/uL (150-450); RBC 3.53 m/uL (3.80-5.40); RDW 14.4 % (11.5-15.5); VBG PH 7.3 (7.31-7.41); WBC 16.9 k/uL (3.8-10.6)
[2022-03-02 16:28] LABS: Albumin 3.5 g/dL (3.5-5.0); Calcium 8.9 mg/dL (8.4-10.2); Total Bilirubin 0.4 mg/dL (0.2-1.3); Total Protein 6.8 g/dL (6.3-8.2)
--- NOTE | 2022-03-02 16:36 | CT ---
EXAMINATION TYPE: CT brain wo con DATE OF EXAM: 03/02/2022 COMPARISON: None HISTORY: ams CT DLP: 1119.4 mGycm Automated exposure control for dose reduction was used. There is some cerebral cortical atrophy. There is no mass effect or midline shift. No sign of intracr anial hemorrhage. The calvarium is intact. IMPRESSION: Cerebral atrophy. No acute intracranial abnormality.
[2022-03-02 16:44] LABS: INR 1.4 (<1.2); Partial Thromboplastin Time 36.1 sec (22.0-30.0); Prothrombin Time 14.4 sec (9.0-12.0)
--- NOTE | 2022-03-02 16:45 | XR ---
EXAMINATION TYPE: XR chest 1V portable DATE OF EXAM: 03/02/2022 COMPARISON: 02/12/2022 HISTORY: Dysrhythmia. Altered mental status TECHNIQUE: FINDINGS: There is no heart failure nor confluent pneumonic infiltrate. Costophrenic angles are clear . There are no hilar masses. The bony thorax is intact. IMPRESSION: No active cardiopulmonary disease. Normal heart.
[2022-03-02 17:10] LABS: Potassium 6.3 mmol/L (3.5-5.1)
[2022-03-02] MEDS ORDERED: CALCIUM GLUCONATE IN NACL 1 GM in SALINE 1 100ML.BAG IVPB ONE (18:32)
[2022-03-02] MEDS ORDERED: INSULIN REGULAR 100 UNIT/ML VIAL (IV) IV STA (18:32)
[2022-03-02] MEDS ORDERED: DEXTROSE 50% SYRINGE 50 ML IVP STA (18:32)
[2022-03-02] MEDS ORDERED: SODIUM BICARB 8.4% 50 ML SYR (1 MEQ/ML) IV STA (18:33)
[2022-03-02] MEDS ORDERED: NALOXONE 0.4 MG/ML 1 ML VIAL IV PRN (18:46)
[2022-03-02 19:08] LABS: Glucose,Whole Blood 109 mg/dL (70-110)
[2022-03-02] MEDS: SODIUM CHLORIDE 0.9% 1,000 ML IV SCH (21:06)
--- NOTE | 2022-03-03 00:53 | P.HPIM ---
History of Present Illness H&P Date: 03/02/22 The patient is a 71-year-old female with a PMH of ESRD on hemodialysis, COPD, type II DM, hypertension, hyperlipidemia, A. fib who was brought into the emergency room by her daughter due to confusion. The patient stated that she did not quite feel like herself today and is unsure why she is at the hospital. The history was thereby submitted from the chart. The patient reportedly had b een acting delirious and was not answering questions appropriately, at which time her daughter became alarmed and brought her to the emergency room. She reportedly got lost in the house and was repeatedly ambulating to the bathroom and back. The patient also missed her scheduled dialysis session earlier today. At time of interview, the patient reported feeling okay and denied any active complaints. She denies recent chest discomfort, shortness of breath, nausea, vomiting, abdominal pain, diarrhea. In the emergency room, a brain CT was unremarkable with chest x-ray also unremarkable and EKG showing sinus rhythm at [address]/T-wave changes noted as reviewed by me. Laboratory evaluation was remarkable for WBC count 16.9, potassium 6.3, creatinine 7.4, and troponin 0.017. The patient was hypoxic upon presentation with SpO2 84% on room air which improved to 98% with 4 L nasal cannula oxygen. Review of systems: Pertinent positives and negatives as discussed in HPI, a complete review of systems was performed and all other systems are negative. Physical examination: General: non toxic, no distress, appears at stated age, normal weight Derm: no unusual rashes/lesions, warm Head: atraumatic, normocephalic, symmetric Eyes: EOMI, no lid lag, anicteric sclera, pupils equal round reactive to light ENT: Nose and ears atraumatic Neck: No cervical lymphadenopathy, trachea midline, supple Mouth: no lip lesion, mucus membranes moist Cardiovascular: S1S2 reg, no murmur, no edema, right upper extremity dialysis graft with palpable thrill Lungs: CTA bilateral, no rhonchi, no rales, no accessory muscle use Abdominal: soft, nontender to palpation, no guarding Ext: muscle strength 5 out of 5 in all 4 extremities grossly, left AKA, no gross muscle atrophy, no contractures, Neuro: CN II-XI grossly intact, no gross focal neuro deficits Psych: Alert, oriented to person and place, not oriented to time Assessment/plan Altered mental status, possibly secondary to hypercapnic respiratory failure versus inefficient dialysis with uremia -Trial of BiPAP overnight -Marily's -Nephrology consulted for resumption of dialysis -Monitor BMP -Patient's mental status had appeared to be improved at the time of interview -VBG with mild hypercapnia Hyperkalemia -Status post calcium gluconate, insulin, sodium bicarbonate -Nephrology consulted for dialysis -Hold home Losartan at this time Chronic conditions: Type II DM, hypertension, lipidemia, A. fib -Continue with home meds -Insulin sliding scale and blood glucose monitoring DVT prophylaxis -Eliquis The patient is admitted with an anticipated greater than 2 midnight stay for evaluation of AMS CODE STATUS: Full Code Discussed with: Patient Anticipated discharge date: 2-[address]: Home Past Medical History Past Medical History: Atrial Fibrillation, Cancer, COPD, Diabetes Mellitus, Eye Disorder, Hyperlipidemia, Hypertension, Renal Disease, Vascular Disorder Additional Past Medical History / Comment(s): Recent vulvar cancer with surgery, IDDM type II, neuropathy, ESRD with hemodialysis T//, kidney cysts, anemia, PVD/L AKA, pt thinks DVTs R leg/L arm, past R leg wound, macular degeneration bilaterally/legally blind, chronic back pain, scoliosis, History of Any Multi-Drug Resistant Organisms: MRSA Date of last positivie culture/infection: 2015 MDRO Source:: left leg Past Surgical History: Adenoidectomy, Orthopedic Surgery, Tonsillectomy Additional Past Surgical History / Comment(s): Recent total vulvectomy at [facility] in [facility], L arm dialysis graft/multiple surgeries to repair, R arm fistula, L AKA, L chest port, surgery on L arm and R leg pt thinks to remove blood clots, vulva surgery Past Anesthesia/Blood Transfusion Reactions: No Reported Reaction Additional Past Anesthesia/Blood Transfusion Reaction / Comment(s): no problems with prior blood transfusions Smoking Status: Current every day smoker, Light tobacco smoker - Past Family History Mother Additional Family Medical History / Comment(s): Mother of liver cirrhosis at the age of 34yrs. Father Family Medical History: Eye Disorder Additional Family Medical History / Comment(s): Macular degeneration. He at age 93 family Family Medical History: Hyperlipidemia Medications and Allergies Home Medications Medication Instructions Recorded Confirmed Type ALPRAZolam [Xanax] 1 mg PO Q8H PRN 04/18/20 03/02/22 History Atorvastatin [Lipitor] 40 mg PO HS 04/18/20 03/02/22 History Calcium Acetate [PhosLo] 1,334 mg PO TID-W/MEALS 04/18/20 03/02/22 History Insulin Degludec [Tresiba 10 units SQ DAILY 04/18/20 03/02/22 History Flextouch U-100 Pen] Levocetirizine Dihydrochloride 5 mg PO BID 04/18/20 03/02/22 History Levothyroxine Sodium [Synthroid] 150 mcg PO DAILY 04/18/20 03/02/22 History Methadone HCl [Methadone Intensol] 1 dose PO DAILY 04/18/20 03/02/22 History Omeprazole 20 mg PO DAILY 04/18/20 03/02/22 History Furosemide [Lasix] 20 mg PO SUMOWEFR 05/20/20 03/02/22 History Insulin Lispro [humaLOG Kwikpen] See Protocol SQ AC-TID 05/20/20 03/02/22 History Apixaban [Eliquis] 2.5 mg PO BID 12/05/20 03/02/22 History Ammonium Lactate Lotion 1 applic TOPICAL BID PRN 08/28/21 03/02/22 History [Lac-Hydrin 12% Lotion] Lidocaine 5% Oint [Xylocaine 5% 1 applic TOPICAL BID 08/28/21 03/02/22 History Oint] Vit C/E/Zn/Coppr/Lutein/Zeaxan 2 cap PO DAILY 08/28/21 03/02/22 History [Preservision Areds 2 Softgel] Fluticasone/Umeclidin/Vilanter 1 puff INHALATION RT-DAILY 01/01/22 03/02/22 History [Trelegy Ellipta 200-62.5-25] Losartan [Cozaar] 25 mg PO DAILY 01/01/22 03/02/22 History Midodrine [ProAmatine] 5 mg PO TUTHSA PRN 01/01/22 03/02/22 History Nephro-Ann 0.8mg 1 cap PO DAILY 01/01/22 03/02/22 History amLODIPine [Norvasc] 5 mg PO TUTHSA PRN 01/01/22 03/02/22 History Cholecalciferol [Vitamin D3 (25 50 mcg PO DAILY 02/12/22 03/02/22 History Mcg = 1000 Iu)] Allergies Allergy/AdvReac Type Severity Reaction Status Date / Time pentazocine [From Kimmie] AdvReac Unknown Verified 03/02/22 19:41 Physical Exam Vitals: Vital Signs Temp Pulse Pulse Resp BP BP Pulse Ox 03/02/22 23:35 68 16 113/57 98 03/02/22 21:04 97.7 F 65 16 114/56 99 03/02/22 21:02 99 03/02/22 19:23 65 14 125/64 97 03/02/22 17:19 65 18 131/67 100 03/02/22 15:20 18 03/02/22 15:10 73 16 136/83 98 03/02/22 14:44 98.1 F 86 16 152/74 84 L Intake and Output 03/02/22 03/02/22 03/03/22 14:59 22:59 06:59 Intake Total 585 Balance 585 Intake: Intake, IV Titration 100 Amount Calcium Gluconate in NaCl 100 1 gm In Saline 1 100ml. bag @ 100 mls/hr IVPB ONCE ONE Rx#:[id number] Oral 485 Other: Voiding Method Toilet # Voids 0 Weight 61 kg 61 kg Results CBC & Chem 7: 03/02/22 15:47 03/02/22 15:47 Labs: Abnormal Lab Results - Last 24 Hours (Table) 03/02/22 03/02/22 03/02/22 Range/Units 15:47 15:47 15:47 WBC 16.9 H (3.8-10.6) k/uL RBC 3.53 L (3.80-5.40) m/uL Hgb 11.2 L (11.4-16.0) gm/dL Neutrophils # 14.6 H (1.3-7.7) k/uL PT 14.4 H (9.0-12.0) sec INR 1.4 H (<1.2) APTT 36.1 H (22.0-30.0) sec VBG pH (7.31-7.41) VBG pCO2 (37-51) mmHg VBG HCO3 (24-28) mmol/L Potassium 6.3 H* (3.5-5.1) mmol/L Chloride 90 L (98-107) mmol/L BUN 67 H (7-17) mg/dL Creatinine 7.40 H* (0.52-1.04) mg/dL Glucose 187 H (74-99) mg/dL Alkaline Phosphatase 145 H (38-126) U/L 03/02/22 Range/Units 15:47 WBC (3.8-10.6) k/uL RBC (3.80-5.40) m/uL Hgb (11.4-16.0) gm/dL Neutrophils # (1.3-7.7) k/uL PT (9.0-12.0) sec INR (<1.2) APTT (22.0-30.0) sec VBG pH 7.30 L (7.31-7.41) VBG pCO2 66 H (37-51) mmHg VBG HCO3 31 H (24-28) mmol/L Potassium (3.5-5.1) mmol/L Chloride (98-107) mmol/L BUN (7-17) mg/dL Creatinine (0.52-1.04) mg/dL Glucose (74-99) mg/dL Alkaline Phosphatase (38-126) U/L
[2022-03-03] MEDS ORDERED: IPRATROPIUM-ALBUTEROL 3 ML NEB INHALATION PRN (01:01)
[2022-03-03] MEDS: ALPRAZolam 1 MG TAB PO PRN (05:23)
[2022-03-03] MEDS: CALCIUM ACETATE 667 MG TAB PO SCH ×3 (06:12→17:43)
[2022-03-03] MEDS: LEVOTHYROXINE 75 MCG TAB PO SCH (06:12)
[2022-03-03 06:25] LABS: Glucose,Whole Blood 55 mg/dL (70-110)
[2022-03-03] MEDS: INSULIN ASPART (NovoLOG) 100 UNIT/ML VIAL SQ SCH ×4 (06:27→20:01)
[2022-03-03 06:45] LABS: Glucose,Whole Blood 77 mg/dL (70-110)
[2022-03-03] MEDS: APIXABAN 2.5 MG TABLET PO SCH ×2 (08:54→21:01)
[2022-03-03] MEDS ORDERED: amLODIPine 5 MG TAB PO PRN (09:00)
[2022-03-03] MEDS ORDERED: METHADONE 10 MG TAB PO ONE (09:00)
[2022-03-03] MEDS: SYMBICORT 80-4.5 MCG INHALER INHALATION SCH ×2 (09:11→20:01)
[2022-03-03] MEDS: IPRATROPIUM-ALBUTEROL 3 ML NEB INHALATION SCH ×4 (09:11→20:00)
[2022-03-03 10:49] LABS: HCT 33.1 % (34.0-46.0); HGB 10.2 gm/dL (11.4-16.0); Hypochromasia Slight; MCH 30.7 pg (25.0-35.0); MCHC 30.9 g/dL (31.0-37.0); MCV 99.5 fL (80.0-100.0); Macrocytosis Slight; Mean Platelet Volume 8.7; Platelet Count 206 k/uL (150-450); RBC 3.33 m/uL (3.80-5.40); RDW 14.5 % (11.5-15.5); WBC 14.7 k/uL (3.8-10.6)
[2022-03-03 11:03] LABS: Albumin 3.1 g/dL (3.5-5.0); Calcium 8.3 mg/dL (8.4-10.2); Potassium 5.8 mmol/L (3.5-5.1); Total Bilirubin 0.5 mg/dL (0.2-1.3); Total Protein 6.1 g/dL (6.3-8.2)
--- NOTE | 2022-03-03 11:10 | P.NPCON ---
History of Present Illness - Reason for Consult Consult date: 03/03/22 end stage renal disease - Chief Complaint Confusion - History of Present Illness Admitted to the hospital with confusion. TTS dialysis follows with Dr. Barrientos. No fevers chills or rigors. Last treatment was this week. CT head in the hospital negative. Review of Systems Constitutional: Reports as per HPI Past Medical History Past Medical History: Atrial Fibrillation, Cancer, COPD, Diabetes Mellitus, Eye Disorder, Hyperlipidemia, Hypertension, Renal Disease, Vascular Disorder Additional Past Medical History / Comment(s): Recent vulvar cancer with surgery, IDDM type II, neuropathy, ESRD with hemodialysis //, kidney cysts, anemia, PVD/L AKA, pt thinks DVTs R leg/L arm, past R leg wound, macular degeneration bilaterally/legally blind, chronic back pain, scoliosis, History of Any Multi-Drug Resistant Organisms: MRSA Date of last positivie culture/infection: 2015 MDRO Source:: left leg Past Surgical History: Adenoidectomy, Orthopedic Surgery, Tonsillectomy Additional Past Surgical History / Comment(s): Recent total vulvectomy at [facility] in [facility], L arm dialysis graft/multiple surgeries to repair, R arm fistula, L AKA, L chest port, surgery on L arm and R leg pt thinks to remove blood clots, vulva surgery Past Anesthesia/Blood Transfusion Reactions: No Reported Reaction Additional Past Anesthesia/Blood Transfusion Reaction / Comment(s): no problems with prior blood transfusions Smoking Status: Current every day smoker, Light tobacco smoker - Past Family History Mother Additional Family Medical History / Comment(s): Mother of liver cirrhosis at the age of 34yrs. Father Family Medical History: Eye Disorder Additional Family Medical History / Comment(s): Macular degeneration. He at age 93 family Family Medical History: Hyperlipidemia Medications and Allergies Home Medications Medication Instructions Recorded Confirmed Type ALPRAZolam [Xanax] 1 mg PO Q8H PRN 04/18/20 03/02/22 History Atorvastatin [Lipitor] 40 mg PO HS 04/18/20 03/02/22 History Calcium Acetate [PhosLo] 1,334 mg PO TID-W/MEALS 04/18/20 03/02/22 History Insulin Degludec [Tresiba 10 units SQ DAILY 04/18/20 03/02/22 History Flextouch U-100 Pen] Levocetirizine Dihydrochloride 5 mg PO BID 04/18/20 03/02/22 History Levothyroxine Sodium [Synthroid] 150 mcg PO DAILY 04/18/20 03/02/22 History Methadone HCl [Methadone Intensol] 1 dose PO DAILY 04/18/20 03/02/22 History Omeprazole 20 mg PO DAILY 04/18/20 03/02/22 History Furosemide [Lasix] 20 mg PO SUMOWEFR 05/20/20 03/02/22 History Insulin Lispro [humaLOG Kwikpen] See Protocol SQ AC-TID 05/20/20 03/02/22 History Apixaban [Eliquis] 2.5 mg PO BID 12/05/20 03/02/22 History Ammonium Lactate Lotion 1 applic TOPICAL BID PRN 08/28/21 03/02/22 History [Lac-Hydrin 12% Lotion] Lidocaine 5% Oint [Xylocaine 5% 1 applic TOPICAL BID 08/28/21 03/02/22 History Oint] Vit C/E/Zn/Coppr/Lutein/Zeaxan 2 cap PO DAILY 08/28/21 03/02/22 History [Preservision Areds 2 Softgel] Fluticasone/Umeclidin/Vilanter 1 puff INHALATION RT-DAILY 01/01/22 03/02/22 History [Trelegy Ellipta 200-62.5-25] Losartan [Cozaar] 25 mg PO DAILY 01/01/22 03/02/22 History Midodrine [ProAmatine] 5 mg PO TUTHSA PRN 01/01/22 03/02/22 History Nephro-Ann 0.8mg 1 cap PO DAILY 01/01/22 03/02/22 History amLODIPine [Norvasc] 5 mg PO TUTHSA PRN 01/01/22 03/02/22 History Cholecalciferol [Vitamin D3 (25 50 mcg PO DAILY 02/12/22 03/02/22 History Mcg = 1000 Iu)] Allergies Allergy/AdvReac Type Severity Reaction Status Date / Time pentazocine [From Kimmie] AdvReac Unknown Verified 03/02/22 19:41 Physical Exam Vitals: Vital Signs Temp Pulse Pulse Resp BP BP Pulse Ox 03/03/22 09:29 61 03/03/22 09:17 59 L 99 03/03/22 08:45 57 L 16 03/03/22 08:44 97.6 F 57 L 16 95/54 98 03/03/22 04:00 78 16 120/59 95 03/02/22 23:35 68 16 113/57 98 03/02/22 21:04 97.7 F 65 16 114/56 99 03/02/22 21:02 99 03/02/22 19:23 65 14 125/64 97 03/02/22 17:19 65 18 131/67 100 03/02/22 15:20 18 03/02/22 15:10 73 16 136/83 98 03/02/22 14:44 98.1 F 86 16 152/74 84 L Intake and Output 03/02/22 03/03/22 03/03/22 22:59 06:59 14:59 Intake Total 585 485 10 Balance 585 485 10 Intake: IV 10 Invasive Line 1 10 Intake, IV Titration 100 Amount Calcium Gluconate in NaCl 100 1 gm In Saline 1 100ml. bag @ 100 mls/hr IVPB ONCE ONE Rx#:[id number] Oral 485 485 Other: Voiding Method Toilet Toilet Toilet # Voids 0 0 Weight 61 kg No acute distress S1-S2 heard Lungs clear No edema Results - Lab Results Most recent lab results Calcium 8.9 mg/dL (8.4-10.2) 03/02/22 15:47 03/03/22 10:18 03/02/22 15:47 Assessment and Plan Assessment: #1 encephalopathy cause unclear. No signs of infection CT head negative. #2 ESRD TTS. #3 hyperkalemia secondary to missed dialysis on Friday. #4 low normal blood pressure #5 metabolic bone disease Plan: #1 check repeat potassium. If still high plan for dialysis today if not plan for tomorrow. #2 add lokelma for hyperkalemia #3 ESRD medications
[2022-03-03 11:46] LABS: Glucose,Whole Blood 75 mg/dL (70-110)
[2022-03-03] MEDS: SODIUM ZIRCONIUM CYCLOSILICATE 10 GM PACKET PO SCH ×3 (12:20→21:01)
[2022-03-03] MEDS ORDERED: MIDODRINE 5 MG TAB PO PRN (13:51)
--- NOTE | 2022-03-03 15:04 | P.PN ---
Subjective Progress Note Date: 03/03/22 Hospital course: Patient is a very pleasant 71-year-old female with a past medical history of ESRD on hemodialysis Tuesdays//Saturdays, CAD, hypertension, hyperlipidemia, insulin-dependent diabetes mellitus type 2, COPD, and atrial fibrillation on anticoagulation with Eliquis. She presented to the emergency department on 03/02/22 with a chief complaint of alteration in mental status as it was reported patient was delirious and not answering questions appropriately. She was reportedly getting lost in her home. It was reported patient missed scheduled dialysis session earlier in the day. She underwent full evaluation in the emergency department. Upon arrival patient was found to be in respiratory distress with SpO2 of 84% on room air requiring oxygen supplementation. EKG was completed revealing sinus rhythm at 76 bpm with no noted T-wave or ST abnormalities. CT head negative for acute process revealing cerebral atrophy. CBC revealed leukocytosis with WBC count of 16.9 and normocytic anemia with hemoglobin of 11.2. BMP revealing hyperkalemia with potassium of 6.3 and elevated renal function with BUN 67, creatinine 7.40, and GFR 5. Liver profile revealing elevated alkaline phosphatase of 145. Covid PCR negative. Chest x- ray negative for acute cardiopulmonary process. Venous blood gas revealing respiratory acidosis with pH 7.30, pCO2 66, and bicarb of 31. Patient was admitted under services with consult to nephrology. Physical exam: Patient was seen and fully evaluated at bedside this morning. At time of assessment, patient back to baseline mentation and alert to person, place, time, and situation. Patient reported generalized pain. Reports that she takes methadone daily. Methadone to be reinitiated once verified by pharmacy. Repeat reading labs revealing slight improvement in hyperkalemia with potassium decreasing to 5.8, nephrology started patient on Lokelma x 4 doses. We will repeat potassium levels this afternoon and if remain elevated patient to undergo dialysis today and if improvement in potassium nephrology planning to initiate dialysis tomorrow morning. Vital signs reviewed and stable. General: Nontoxic, no distress and appears stated age. Derm: Skin warm and dry, normal coloration for ethnicity. Head: Atraumatic, normocephalic and symmetric. Eyes: EOMs intact, no lid lag, and anicteric sclera Mouth: no lip lesions, mucus membranes moist Cardiovascular: regular rate and rhythm with normal S1S2, systolic murmur, positive posterior tibial pulses bilaterally, and cap refill < 2 seconds. Dialysis AV fistula right upper extremity with thrill and bruit in place. Lungs: Respirations even, regular, and unlabored on 4L O2. Lungs diminished, no rhonchi, no rales, no wheezing, and no accessory muscle usage. Abdominal: soft, nontender to palpation, no guarding, no appreciable organomegaly Ext: No gross muscle atrophy, no edema, no contractures. Left lower extremity above-knee amputation. Right lower extremity with severe peripheral vascular disease with venous discoloration Neuro: Speech clear, face symmetrical and CN II-XII grossly intact with no noted focal neuro deficits Psych: Alert and oriented to person, place, time, and situation. Appropriate and pleasant affect. Assessment and Plan of Care: Altered mental status, Secondary to hypercapnic respiratory failure, resolved. Acute respiratory failure with hypoxia and hypercapnia -DuoNeb's -Nephrology consulted for resumption of dialysis -Monitor BMP -Patient's mental status had appeared to be improved at the time of interview -VBG with mild hypercapnia Hyperkalemia ESRD on dialysis, missed session -Secondary to ESRD and missed dialysis session -Nephrology consulted for initiation of dialysis -Hold home Losartan at this time secondary to hyperkalemia. -Nephrology has started patient on Lokelma 10 g 3 times daily 4 doses. Chronic Pain -May resume methadone once verified by pharmacy. Paroxysmal atrial fib -Continue anticoagulant with Eliquis. Hypertension -Monitor vital signs and continue medication regimen with amlodopine. Diabetes Mellitus -Glycemic protocol with novolog sliding scale. CODE STATUS: Full Code DVT prophylaxis: Eliquis Discussed with: Patient and RN Anticipated discharge date: 2-[address]: Home A total of 35 minutes was spent on the care of this complex patient more than 50% of the time was spent in counseling and care coordination. .I reviewed the documentation as provided by the FILIBERTO above, who is the original author of this note. I agree with the documented assessment and plan, with the following changes: none Objective - Vital Signs Vital signs: Vital Signs Temp 97.7 F 03/02/22 21:04 Pulse 78 03/03/22 04:00 Resp 16 03/03/22 04:00 BP 120/59 03/03/22 04:00 Pulse Ox 95 03/03/22 04:00 FiO2 Intake & Output 03/02/22 03/03/22 03/03/22 18:59 06:59 18:59 Intake Total 1070 Balance 1070 Weight 61 kg 61 kg Intake: Intake, IV Titration 100 Amount Calcium Gluconate in NaCl 100 1 gm In Saline 1 100ml. bag @ 100 mls/hr IVPB ONCE ONE Rx#:[id number] Oral 970 Other: Voiding Method Toilet # Voids 0 - Labs CBC & Chem 7: 03/04/22 08:21 03/04/22 08:21 Labs: Abnormal Lab Results - Last 24 Hours (Table) 03/02/22 03/02/22 03/02/22 Range/Units 15:47 15:47 15:47 WBC 16.9 H (3.8-10.6) k/uL RBC 3.53 L (3.80-5.40) m/uL Hgb 11.2 L (11.4-16.0) gm/dL Neutrophils # 14.6 H (1.3-7.7) k/uL PT 14.4 H (9.0-12.0) sec INR 1.4 H (<1.2) APTT 36.1 H (22.0-30.0) sec VBG pH (7.31-7.41) VBG pCO2 (37-51) mmHg VBG HCO3 (24-28) mmol/L Potassium 6.3 H* (3.5-5.1) mmol/L Chloride 90 L (98-107) mmol/L BUN 67 H (7-17) mg/dL Creatinine 7.40 H* (0.52-1.04) mg/dL Glucose 187 H (74-99) mg/dL POC Glucose (mg/dL) (70-110) mg/dL Alkaline Phosphatase 145 H (38-126) U/L 03/02/22 03/03/22 Range/Units 15:47 06:24 WBC (3.8-10.6) k/uL RBC (3.80-5.40) m/uL Hgb (11.4-16.0) gm/dL Neutrophils # (1.3-7.7) k/uL PT (9.0-12.0) sec INR (<1.2) APTT (22.0-30.0) sec VBG pH 7.30 L (7.31-7.41) VBG pCO2 66 H (37-51) mmHg VBG HCO3 31 H (24-28) mmol/L Potassium (3.5-5.1) mmol/L Chloride (98-107) mmol/L BUN (7-17) mg/dL Creatinine (0.52-1.04) mg/dL Glucose (74-99) mg/dL POC Glucose (mg/dL) 55 L (70-110) mg/dL Alkaline Phosphatase (38-126) U/L
[2022-03-03 15:35] LABS: Calcium 8.6 mg/dL (8.4-10.2); Potassium 5.4 mmol/L (3.5-5.1)
[2022-03-03 16:55] LABS: Glucose,Whole Blood 135 mg/dL (70-110)
[2022-03-03 20:01] LABS: Glucose,Whole Blood 146 mg/dL (70-110)
[2022-03-03] MEDS: SODIUM CHLORIDE 0.9% 1,000 ML IV SCH (21:01)
[2022-03-03] MEDS: ATORVASTATIN 40 MG TAB PO SCH (21:01)
[2022-03-03] MEDS: ACETAMINOPHEN TAB 325 MG TAB PO PRN (23:21)
[2022-03-04 05:45] LABS: Glucose,Whole Blood 117 mg/dL (70-110)
[2022-03-04] MEDS: INSULIN ASPART (NovoLOG) 100 UNIT/ML VIAL SQ SCH ×4 (05:46→19:58)
[2022-03-04] MEDS: LEVOTHYROXINE 75 MCG TAB PO SCH (06:14)
[2022-03-04] MEDS: CALCIUM ACETATE 667 MG TAB PO SCH ×3 (06:14→17:13)
[2022-03-04] MEDS: IPRATROPIUM-ALBUTEROL 3 ML NEB INHALATION SCH ×4 (08:13→19:58)
[2022-03-04] MEDS: SYMBICORT 80-4.5 MCG INHALER INHALATION SCH ×2 (08:14→19:59)
[2022-03-04] MEDS ORDERED: NON FORMULARY DRUG (Methadone Hcl [Methadone Intensol] 10 MG/ML Oral.Conc) PO SCH (09:00)
[2022-03-04] MEDS: PANTOPRAZOLE 40 MG TABLET PO SCH (09:03)
[2022-03-04] MEDS: APIXABAN 2.5 MG TABLET PO SCH ×2 (09:03→19:56)
[2022-03-04] MEDS: FOLIC ACID-VIT B COMPLEX-VIT C 1 CAP PO SCH (09:03)
[2022-03-04] MEDS: SODIUM ZIRCONIUM CYCLOSILICATE 10 GM PACKET PO SCH (09:04)
[2022-03-04 09:11] LABS: Hypochromasia Slight; MCH 31.8 pg (25.0-35.0); MCHC 32.4 g/dL (31.0-37.0); MCV 98.2 fL (80.0-100.0); Mean Platelet Volume 9.6; Platelet Count 208 k/uL (150-450); RBC 3.46 m/uL (3.80-5.40); RDW 14.4 % (11.5-15.5); WBC 17.1 k/uL (3.8-10.6)
[2022-03-04] MEDS: ALPRAZolam 1 MG TAB PO PRN ×2 (09:11→19:56)
[2022-03-04 09:26] LABS: Albumin 3.3 g/dL (3.5-5.0); Calcium 8.4 mg/dL (8.4-10.2); Magnesium 2.2 mg/dL (1.6-2.3); Potassium 5.4 mmol/L (3.5-5.1); Total Bilirubin 0.5 mg/dL (0.2-1.3); Total Protein 6.5 g/dL (6.3-8.2)
--- NOTE | 2022-03-04 11:01 | P.PN ---
Subjective Patient is seen in follow-up for end-stage renal disease. She is maintained on hemodialysis on Friday schedule via AV fistula. Denies chest pain or shortness of breath. No vomiting or diarrhea. Oral intake better. Missed dialysis Friday. Vital signs are stable. General: Awake. No acute distress. HEENT: Head exam is unremarkable. LUNGS: Breath sounds decreased. HEART: Rate and Rhythm are regular. ABDOMEN: Soft, no distention. EXTREMITITES: No edema. Objective - Vital Signs Vital signs: Vital Signs Temp 98.6 F 03/04/22 08:05 Pulse 70 03/04/22 08:26 Resp 20 03/04/22 08:05 BP 123/60 03/04/22 08:05 Pulse Ox 93 L 03/04/22 08:05 FiO2 35 03/04/22 03:53 Intake & Output 03/03/22 03/04/22 03/04/22 18:59 06:59 18:59 Intake Total 818 118 Output Total 0 Balance 818 118 Intake: IV 20 Invasive Line 1 20 Oral 798 118 Output: Urine 0 Other: Voiding Method Toilet Bedside Commode Bedside Commode # Voids 1 # Bowel Movements 2 0 - Labs CBC & Chem 7: 03/04/22 08:21 03/04/22 08:21 Labs: Abnormal Lab Results - Last 24 Hours (Table) 03/03/22 03/03/22 03/03/22 Range/Units 10:18 14:49 16:53 WBC (3.8-10.6) k/uL RBC (3.80-5.40) m/uL Hgb (11.4-16.0) gm/dL Sodium 136 L (137-145) mmol/L Potassium 5.8 H 5.4 H (3.5-5.1) mmol/L Chloride 90 L 88 L (98-107) mmol/L BUN 80 H 83 H (7-17) mg/dL Creatinine 7.74 H* 8.47 H* (0.52-1.04) mg/dL Glucose (74-99) mg/dL POC Glucose (mg/dL) 135 H (70-110) mg/dL Calcium 8.3 L (8.4-10.2) mg/dL Total Protein 6.1 L (6.3-8.2) g/dL Albumin 3.1 L (3.5-5.0) g/dL 03/03/22 03/04/22 03/04/22 Range/Units 20:00 05:43 08:21 WBC 17.1 H (3.8-10.6) k/uL RBC 3.46 L (3.80-5.40) m/uL Hgb 11.0 L (11.4-16.0) gm/dL Sodium (137-145) mmol/L Potassium (3.5-5.1) mmol/L Chloride (98-107) mmol/L BUN (7-17) mg/dL Creatinine (0.52-1.04) mg/dL Glucose (74-99) mg/dL POC Glucose (mg/dL) 146 H 117 H (70-110) mg/dL Calcium (8.4-10.2) mg/dL Total Protein (6.3-8.2) g/dL Albumin (3.5-5.0) g/dL 03/04/22 Range/Units 08:21 WBC (3.8-10.6) k/uL RBC (3.80-5.40) m/uL Hgb (11.4-16.0) gm/dL Sodium (137-145) mmol/L Potassium 5.4 H (3.5-5.1) mmol/L Chloride 89 L (98-107) mmol/L BUN 96 H (7-17) mg/dL Creatinine 9.10 H* (0.52-1.04) mg/dL Glucose 114 H (74-99) mg/dL POC Glucose (mg/dL) (70-110) mg/dL Calcium (8.4-10.2) mg/dL Total Protein (6.3-8.2) g/dL Albumin 3.3 L (3.5-5.0) g/dL Microbiology - Last 24 Hours (Table) 03/02/22 15:30 Blood Culture - Preliminary Blood No Growth after 24 hours 03/02/22 15:45 Blood Culture - Preliminary Blood No Growth after 24 hours Assessment and Plan Plan: Assessment: 1. End-stage renal disease maintained on hemodialysis on Friday schedule. 2. Mild hyperkalemia from chronic kidney disease and missed dialysis treatment. 3. Hypertension with chronic kidney disease. Stable. 4. Chronic kidney disease mineral bone disease maintained on PhosLo. Plan: Hemodialysis today and again tomorrow.
[2022-03-04 11:47] LABS: Glucose,Whole Blood 160 mg/dL (70-110)
--- NOTE | 2022-03-04 14:15 | P.PN ---
Subjective Progress Note Date: 03/04/22 Hospital course: Patient is a very pleasant 71-year-old female with a past medical history of ESRD on hemodialysis Tuesdays//Saturdays, CAD, hypertension, hyperlipidemia, insulin-dependent diabetes mellitus type 2, COPD, and atrial fibrillation on anticoagulation with Eliquis. She presented to the emergency department on 03/02/22 with a chief complaint of alteration in mental status as it was reported patient was delirious and not answering questions appropriately. She was reportedly getting lost in her home. It was reported patient missed scheduled dialysis session earlier in the day. She underwent full evaluation in the emergency department. Upon arrival patient was found to be in respiratory distress with SpO2 of 84% on room air requiring oxygen supplementation. EKG was completed revealing sinus rhythm at 76 bpm with no noted T-wave or ST abnormalities. CT head negative for acute process revealing cerebral atrophy. CBC revealed leukocytosis with WBC count of 16.9 and normocytic anemia with hemoglobin of 11.2. BMP revealing hyperkalemia with potassium of 6.3 and elevated renal function with BUN 67, creatinine 7.40, and GFR 5. Liver profile revealing elevated alkaline phosphatase of 145. Covid PCR negative. Chest x- ray negative for acute cardiopulmonary process. Venous blood gas revealing respiratory acidosis with pH 7.30, pCO2 66, and bicarb of 31. Patient was admitted under services with consult to nephrology. Potassium is stabilized status post treatment with Lokelma. Patient with persistent leukocytosis with WBC count of 17.1, no signs of infection this is believed to be reactive. Pt denies any complaints and is oliguric at baseline, if a urine specimen is able to be obtained we will send sample for urinalysis to rule out infection. Blood cultures showing no growth to date. Patient undergo dialysis today and again scheduled for tomorrow. Physical exam: Patient seen and fully evaluated at the bedside this morning. She is awaiting to undergo dialysis. Morning labs reviewed. Potassium is stable status post treatment with Lokelma. Currently K+ 5.4 Patient with persistent leukocytosis with WBC count of 17.1, no signs of infection this is believed to be reactive. Pt denies any complaints and is oliguric at baseline, if a urine specimen is able to be obtained we will send sample for urinalysis to rule out infection. Blood cultures showing no growth to date. Vital signs reviewed and stable. General: Nontoxic, no distress and appears stated age. Derm: Skin warm and dry, normal coloration for ethnicity. Head: Atraumatic, normocephalic and symmetric. Eyes: EOMs intact, no lid lag, and anicteric sclera Mouth: no lip lesions, mucus membranes moist Cardiovascular: regular rate and rhythm with normal S1S2, systolic murmur, positive posterior tibial pulses bilaterally, and cap refill < 2 seconds. Dialysis AV fistula right upper extremity with thrill and bruit in place. Lungs: Respirations even, regular, and unlabored on 4L O2. Lungs diminished, no rhonchi, no rales, no wheezing, and no accessory muscle usage. Abdominal: soft, nontender to palpation, no guarding, no appreciable organomegaly Ext: No gross muscle atrophy, no edema, no contractures. Left lower extremity above-knee amputation. Right lower extremity with severe peripheral vascular disease with venous discoloration Neuro: Speech clear, face symmetrical and CN II-XII grossly intact with no noted focal neuro deficits Psych: Alert and oriented to person, place, time, and situation. Appropriate and pleasant affect. Assessment and Plan of Care: Altered mental status, Secondary to hypercapnic respiratory failure, resolved. Acute respiratory failure with hypoxia and hypercapnia -DuoNeb's -Nephrology consulted for resumption of dialysis -Monitor BMP -Patient's mental status had appeared to be improved at the time of interview -VBG with mild hypercapnia Hyperkalemia ESRD on dialysis, missed session -Secondary to ESRD and missed dialysis session -Nephrology consulted for initiation of dialysis -Hold home Losartan at this time secondary to hyperkalemia. -Patient received Lokelma 10 g 4 doses. Leukocytosis, believed to be reactive -WBC count of 17.1, no signs of infection this is believed to be reactive. -Pt denies any complaints and is oliguric at baseline, if a urine specimen is able to be obtained we will send sample for urinalysis to rule out infection. -Blood cultures showing no growth to date. Chronic Pain -Methadone was verified by pharmacy and resumed. Paroxysmal atrial fib -Continue anticoagulant with Eliquis. Hypertension -Monitor vital signs and continue medication regimen with amlodopine. Diabetes Mellitus -Glycemic protocol with novolog sliding scale. CODE STATUS: Full Code DVT prophylaxis: Eliquis Discussed with: Patient and RN Anticipated discharge date: 2-[address]: Home A total of 35 minutes was spent on the care of this complex patient more than 50% of the time was spent in counseling and care coordination. .I reviewed the documentation as provided by the FILIBERTO above, who is the original author of this note. I agree with the documented assessment and plan, with the following changes: none Objective - Vital Signs Vital signs: Vital Signs Temp 97.6 F 03/04/22 00:00 Pulse 67 03/04/22 03:53 Resp 20 03/04/22 03:53 BP 114/66 03/04/22 03:53 Pulse Ox 94 L 03/04/22 03:53 FiO2 35 03/04/22 03:53 Intake & Output 03/03/22 03/04/22 03/04/22 18:59 06:59 18:59 Intake Total 818 Balance 818 Intake: IV 20 Invasive Line 1 20 Oral 798 Other: Voiding Method Toilet Bedside Commode # Voids 1 # Bowel Movements 2 - Labs CBC & Chem 7: 03/04/22 08:21 03/04/22 08:21 Labs: Abnormal Lab Results - Last 24 Hours (Table) 03/03/22 03/03/22 03/03/22 Range/Units 10:18 10:18 14:49 WBC 14.7 H (3.8-10.6) k/uL RBC 3.33 L (3.80-5.40) m/uL Hgb 10.2 L (11.4-16.0) gm/dL Hct 33.1 L (34.0-46.0) % MCHC 30.9 L (31.0-37.0) g/dL Sodium 136 L (137-145) mmol/L Potassium 5.8 H 5.4 H (3.5-5.1) mmol/L Chloride 90 L 88 L (98-107) mmol/L BUN 80 H 83 H (7-17) mg/dL Creatinine 7.74 H* 8.47 H* (0.52-1.04) mg/dL POC Glucose (mg/dL) (70-110) mg/dL Calcium 8.3 L (8.4-10.2) mg/dL Total Protein 6.1 L (6.3-8.2) g/dL Albumin 3.1 L (3.5-5.0) g/dL 03/03/22 03/03/22 03/04/22 Range/Units 16:53 20:00 05:43 WBC (3.8-10.6) k/uL RBC (3.80-5.40) m/uL Hgb (11.4-16.0) gm/dL Hct (34.0-46.0) % MCHC (31.0-37.0) g/dL Sodium (137-145) mmol/L Potassium (3.5-5.1) mmol/L Chloride (98-107) mmol/L BUN (7-17) mg/dL Creatinine (0.52-1.04) mg/dL POC Glucose (mg/dL) 135 H 146 H 117 H (70-110) mg/dL Calcium (8.4-10.2) mg/dL Total Protein (6.3-8.2) g/dL Albumin (3.5-5.0) g/dL Microbiology - Last 24 Hours (Table) 03/02/22 15:30 Blood Culture - Preliminary Blood No Growth after 24 hours 03/02/22 15:45 Blood Culture - Preliminary Blood No Growth after 24 hours
[2022-03-04] MEDS: METHADONE 10 MG TAB PO SCH (15:16)
[2022-03-04] MEDS: METHADONE 5 MG TAB PO SCH (15:16)
[2022-03-04 16:38] LABS: Glucose,Whole Blood 54 mg/dL (70-110)
[2022-03-04 17:06] LABS: Glucose,Whole Blood 84 mg/dL (70-110)
[2022-03-04] MEDS: SODIUM CHLORIDE 0.9% 1,000 ML IV SCH (19:06)
[2022-03-04 19:44] LABS: Glucose,Whole Blood 183 mg/dL (70-110)
[2022-03-04] MEDS: ATORVASTATIN 40 MG TAB PO SCH (19:56)
[2022-03-05] MEDS: ACETAMINOPHEN TAB 325 MG TAB PO PRN ×2 (04:15→21:57)
[2022-03-05 05:35] LABS: Glucose,Whole Blood 161 mg/dL (70-110)
[2022-03-05] MEDS: LEVOTHYROXINE 75 MCG TAB PO SCH (06:15)
[2022-03-05] MEDS: CALCIUM ACETATE 667 MG TAB PO SCH ×3 (06:15→16:42)
[2022-03-05] MEDS: INSULIN ASPART (NovoLOG) 100 UNIT/ML VIAL SQ SCH ×4 (06:16→21:53)
[2022-03-05] MEDS: IPRATROPIUM-ALBUTEROL 3 ML NEB INHALATION SCH ×4 (08:42→20:06)
[2022-03-05 09:08] LABS: Basophils # (A) 0.1 k/uL (0-0.2); Basophils % (A) 1 %; Eosinophils # (A) 0.1 k/uL (0-0.7); Eosinophils % (A) 1 %; HCT 32.7 % (34.0-46.0); HGB 10.5 gm/dL (11.4-16.0); Hypochromasia Slight; Lymphocytes # (A) 1.7 k/uL (1.0-4.8); Lymphocytes % (A) 12 %; MCHC 32.2 g/dL (31.0-37.0); MCV 99.5 fL (80.0-100.0); Mean Platelet Volume 9.2; Monocytes # (A) 0.9 k/uL (0-1.0); Monocytes % (A) 6 %; Neutrophils # (A) 11.7 k/uL (1.3-7.7); Neutrophils % (A) 79 %; Platelet Count 231 k/uL (150-450); RBC 3.29 m/uL (3.80-5.40); WBC 14.8 k/uL (3.8-10.6)
[2022-03-05 09:22] LABS: Calcium 8.3 mg/dL (8.4-10.2); Magnesium 1.9 mg/dL (1.6-2.3); Potassium 4.6 mmol/L (3.5-5.1)
--- NOTE | 2022-03-05 10:25 | P.PN ---
Subjective Patient is seen in follow-up for end-stage renal disease. She is maintained on hemodialysis on Friday schedule via AV fistula. Denies chest pain or shortness of breath. No vomiting or diarrhea. Oral intake better. Tolerating dialysis well. Vital signs are stable. General: Awake. No acute distress. HEENT: Head exam is unremarkable. On NC. LUNGS: Breath sounds decreased. HEART: Rate and Rhythm are regular. ABDOMEN: Soft, no distention. EXTREMITITES: No edema. Objective - Vital Signs Vital signs: Vital Signs Temp 98.6 F 03/05/22 08:33 Pulse 71 03/05/22 08:33 Resp 16 03/05/22 08:33 BP 99/50 03/05/22 08:33 Pulse Ox 97 03/05/22 08:33 FiO2 35 03/04/22 03:53 Intake & Output 03/04/22 03/05/22 03/05/22 18:59 06:59 18:59 Intake Total 776 Output Total 1300 Balance -524 Intake: Oral 476 Hemodialysis 300 Output: Urine 0 Hemodialysis 1300 Other: Voiding Method Bedside Commode Bedside Commode # Bowel Movements 0 - Labs CBC & Chem 7: 03/05/22 08:50 03/05/22 08:50 Labs: Abnormal Lab Results - Last 24 Hours (Table) 03/04/22 03/04/22 03/04/22 Range/Units 11:45 16:36 19:42 WBC (3.8-10.6) k/uL RBC (3.80-5.40) m/uL Hgb (11.4-16.0) gm/dL Hct (34.0-46.0) % Neutrophils # (1.3-7.7) k/uL Chloride (98-107) mmol/L BUN (7-17) mg/dL Creatinine (0.52-1.04) mg/dL Glucose (74-99) mg/dL POC Glucose (mg/dL) 160 H 54 L 183 H (70-110) mg/dL Calcium (8.4-10.2) mg/dL 03/05/22 03/05/22 03/05/22 Range/Units 05:33 08:50 08:50 WBC 14.8 H (3.8-10.6) k/uL RBC 3.29 L (3.80-5.40) m/uL Hgb 10.5 L (11.4-16.0) gm/dL Hct 32.7 L (34.0-46.0) % Neutrophils # 11.7 H (1.3-7.7) k/uL Chloride 95 L (98-107) mmol/L BUN 58 H (7-17) mg/dL Creatinine 7.58 H* (0.52-1.04) mg/dL Glucose 147 H (74-99) mg/dL POC Glucose (mg/dL) 161 H (70-110) mg/dL Calcium 8.3 L (8.4-10.2) mg/dL Microbiology - Last 24 Hours (Table) 03/02/22 15:30 Blood Culture - Preliminary Blood No Growth after 48 hours 03/02/22 15:45 Blood Culture - Preliminary Blood No Growth after 48 hours Assessment and Plan Plan: Assessment: 1. End-stage renal disease maintained on hemodialysis on Friday schedule. 2. Mild hyperkalemia from chronic kidney disease and missed dialysis treatment. Better. 3. Hypertension with chronic kidney disease. Stable. 4. Chronic kidney disease mineral bone disease maintained on PhosLo. Plan: Currently seen while undergoing hemodialysis. Next treatment on .
[2022-03-05 11:32] LABS: Glucose,Whole Blood 114 mg/dL (70-110)
[2022-03-05] MEDS: SYMBICORT 80-4.5 MCG INHALER INHALATION SCH ×2 (12:09→20:06)
[2022-03-05] MEDS: PANTOPRAZOLE 40 MG TABLET PO SCH (12:51)
[2022-03-05] MEDS: FOLIC ACID-VIT B COMPLEX-VIT C 1 CAP PO SCH (12:51)
[2022-03-05] MEDS: APIXABAN 2.5 MG TABLET PO SCH ×2 (12:51→21:58)
[2022-03-05] MEDS: METHADONE 5 MG TAB PO SCH (13:28)
[2022-03-05] MEDS: METHADONE 10 MG TAB PO SCH (13:29)
--- NOTE | 2022-03-05 14:41 | P.PN ---
Subjective Progress Note Date: 03/05/22 Principal diagnosis: Encephalopathy Hospital Course: Patient is a very pleasant 71-year-old female with a past medical history of ESRD on hemodialysis Tuesdays//Saturdays, CAD, hypertension, hyperlipidemia, insulin-dependent diabetes mellitus type 2, COPD, and atrial fibrillation on anticoagulation with Eliquis. She presented to the emergency department on 03/02/22 with a chief complaint of alteration in mental status as it was reported patient was delirious and not answering questions appropriately. She was reportedly getting lost in her home. It was reported patient missed scheduled dialysis session earlier in the day. She underwent full evaluation in the emergency department. Upon arrival patient was found to be in respiratory distress with SpO2 of 84% on room air requiring oxygen supplementation. EKG was completed revealing sinus rhythm at 76 bpm with no noted T-wave or ST abnormalities. CT head negative for acute process revealing cerebral atrophy. CBC revealed leukocytosis with WBC count of 16.9 and normocytic anemia with h emoglobin of 11.2. BMP revealing hyperkalemia with potassium of 6.3 and elevated renal function with BUN 67, creatinine 7.40, and GFR 5. Liver profile revealing elevated alkaline phosphatase of 145. Covid PCR negative. Chest x- ray negative for acute cardiopulmonary process. Venous blood gas revealing respiratory acidosis with pH 7.30, pCO2 66, and bicarb of 31. Patient was admitted under services with consult to nephrology. Potassium is stabilized status post treatment with Lokelma. Patient with persistent leukocytosis with WBC count of 17.1, no signs of infection this is believed to be reactive. Pt denies any complaints and is oliguric at baseline, if a urine specimen is able to be obtained we will send sample for urinalysis to rule out infection. Blood cultures showing no growth to date. Patient undergoing dialysis per nephrology. Subjective: Patient seen and examined at bedside. No acute events overnight. She claims that she is slightly cold due to dialysis. However, she denies any chest pain, shortness of breath, abdominal pain, bowel or bladder complaints. Pertinent positives and negatives as discussed above, a complete review of systems was performed and all other systems are negative. Vitals Signs Reviewed. General: nontoxic, no distress, appears at stated age, getting dialyzed Derm: warm, dry Head: atraumatic, normocephalic, symmetric Eyes: EOMI, no lid lag, anicteric sclera Mouth: no lip lesion, mucus membranes moist Cardiovascular: S1S2 reg, systolic murmur, dialysis AV fistula in right upper extremity Lungs: CTA bilateral, no rhonchi, no rales , no accessory muscle use, 2 L nasal cannula Abdominal: soft, nontender to palpation, no guarding, no appreciable organomegaly Ext: no gross muscle atrophy, no edema, no contractures Neuro: CN II-XI grossly intact, no focal neuro deficits Psych: Alert, oriented, appropriate affect Assessment and Plan: Acute encephalopathy, Secondary to hypercapnic respiratory failure, resolved. Acute respiratory failure with hypoxia and hypercapnia -Wean oxygen, still on 2 L -Nephrology consulted - getting dialyzed -Monitor BMP -Mental status improved Hyperkalemia - resolved ESRD on dialysis -Nephrology consulted -Hold home Losartan at this time secondary to hyperkalemia. -Patient received Lokelma 10 g 4 doses. Leukocytosis, believed to be reactive -No acute signs of infection -Pt denies any complaints and is oliguric at baseline -Blood cultures showing no growth to date. Chronic Pain -Methadone - likely also contributing to hypercapnic Respiratory failure, will need outpatient evaluation to further taper methadone use Paroxysmal atrial fib -Eliquis. Hypertension -amlodopine. Diabetes Mellitus -Glycemic protocol with novolog sliding scale. Hypothyroidism - levothyroxin Dyslipidemia -Atorvastatin DVT ppx: eliquis Code status: Full code Anticipated discharge place: Home, uses a wheelchair Anticipated discharge time: Likely Tomorrow Objective - Vital Signs Vital signs: Vital Signs Temp 97.8 F 03/05/22 12:07 Pulse 85 03/05/22 12:49 Resp 16 03/05/22 12:49 BP 107/70 03/05/22 12:49 Pulse Ox 94 L 03/05/22 12:49 FiO2 35 03/04/22 03:53 Intake & Output 03/04/22 03/05/22 03/05/22 18:59 06:59 18:59 Intake Total 776 300 Output Total 1300 1800 Balance -524 -1500 Intake: Oral 476 Hemodialysis 300 300 Output: Urine 0 Hemodialysis 1300 1800 Other: Voiding Method Bedside Commode Bedside Commode # Bowel Movements 0 - Labs CBC & Chem 7: 03/05/22 08:50 03/05/22 08:50 Labs: Abnormal Lab Results - Last 24 Hours (Table) 10/03/1603/04/22 03/05/22 Range/Units 16:36 19:42 05:33 WBC (3.8-10.6) k/uL RBC (3.80-5.40) m/uL Hgb (11.4-16.0) gm/dL Hct (34.0-46.0) % Neutrophils # (1.3-7.7) k/uL Chloride (98-107) mmol/L BUN (7-17) mg/dL Creatinine (0.52-1.04) mg/dL Glucose (74-99) mg/dL POC Glucose (mg/dL) 54 L 183 H 161 H (70-110) mg/dL Calcium (8.4-10.2) mg/dL 03/05/22 03/05/22 03/05/22 Range/Units 08:50 08:50 11:31 WBC 14.8 H (3.8-10.6) k/uL RBC 3.29 L (3.80-5.40) m/uL Hgb 10.5 L (11.4-16.0) gm/dL Hct 32.7 L (34.0-46.0) % Neutrophils # 11.7 H (1.3-7.7) k/uL Chloride 95 L (98-107) mmol/L BUN 58 H (7-17) mg/dL Creatinine 7.58 H* (0.52-1.04) mg/dL Glucose 147 H (74-99) mg/dL POC Glucose (mg/dL) 114 H (70-110) mg/dL Calcium 8.3 L (8.4-10.2) mg/dL Microbiology - Last 24 Hours (Table) 03/02/22 15:30 Blood Culture - Preliminary Blood No Growth after 48 hours 03/02/22 15:45 Blood Culture - Preliminary Blood No Growth after 48 hours
[2022-03-05 16:45] LABS: Glucose,Whole Blood 227 mg/dL (70-110)
[2022-03-05] MEDS: SODIUM CHLORIDE 0.9% 1,000 ML IV SCH (17:16)
[2022-03-05 21:12] LABS: Glucose,Whole Blood 73 mg/dL (70-110)
[2022-03-05] MEDS: ATORVASTATIN 40 MG TAB PO SCH (21:58)
[2022-03-06] MEDS: ACETAMINOPHEN TAB 325 MG TAB PO PRN ×3 (06:59→21:15)
[2022-03-06] MEDS: LEVOTHYROXINE 75 MCG TAB PO SCH (06:59)
[2022-03-06] MEDS: INSULIN ASPART (NovoLOG) 100 UNIT/ML VIAL SQ SCH ×4 (07:02→21:15)
[2022-03-06] MEDS: CALCIUM ACETATE 667 MG TAB PO SCH ×3 (07:03→16:49)
[2022-03-06 07:09] LABS: Glucose,Whole Blood 122 mg/dL (70-110)
[2022-03-06] MEDS: SYMBICORT 80-4.5 MCG INHALER INHALATION SCH ×2 (08:15→20:00)
[2022-03-06] MEDS: IPRATROPIUM-ALBUTEROL 3 ML NEB INHALATION SCH ×4 (08:15→20:00)
[2022-03-06] MEDS: METHADONE 5 MG TAB PO SCH (08:56)
[2022-03-06] MEDS: APIXABAN 2.5 MG TABLET PO SCH ×2 (08:56→21:15)
[2022-03-06] MEDS: FOLIC ACID-VIT B COMPLEX-VIT C 1 CAP PO SCH (08:56)
[2022-03-06] MEDS: PANTOPRAZOLE 40 MG TABLET PO SCH (08:56)
[2022-03-06] MEDS: METHADONE 10 MG TAB PO SCH (08:57)
[2022-03-06 10:04] LABS: Calcium 8.7 mg/dL (8.4-10.2); Magnesium 1.9 mg/dL (1.6-2.3); Potassium 4.4 mmol/L (3.5-5.1)
--- NOTE | 2022-03-06 11:20 | P.PN ---
Subjective Progress Note Date: 03/06/22 Principal diagnosis: Encephalopathy Hospital Course: Patient is a very pleasant 71-year-old female with a past medical history of ESRD on hemodialysis Tuesdays//Saturdays, CAD, hypertension, hyperlipidemia, insulin-dependent diabetes mellitus type 2, COPD, and atrial fibrillation on anticoagulation with Eliquis. She presented to the emergency department on 03/02/22 with a chief complaint of alteration in mental status as it was reported patient was delirious and not answering questions appropriately. She was reportedly getting lost in her home. It was reported patient missed scheduled dialysis session earlier in the day. She underwent full evaluation in the emergency department. Upon arrival patient was found to be in respiratory distress with SpO2 of 84% on room air requiring oxygen supplementation. EKG was completed revealing sinus rhythm at 76 bpm with no noted T-wave or ST abnormalities. CT head negative for acute process revealing cerebral atrophy. CBC revealed leukocytosis with WBC count of 16.9 and normocytic anemia with hemoglobin of 11.2. BMP revealing hyperkalemia with potassium of 6.3 and elevated renal function with BUN 67, creatinine 7.40, and GFR 5. Liver profile revealing elevated alkaline phosphatase of 145. Covid PCR negative. Chest x- ray negative for acute cardiopulmonary process. Venous blood gas revealing r espiratory acidosis with pH 7.30, pCO2 66, and bicarb of 31. Patient was admitted under services with consult to nephrology. Potassium is stabilized status post treatment with Lokelma. Patient with persistent leukocytosis with WBC count of 17.1, no signs of infection this is believed to be reactive. Pt denies any complaints and is oliguric at baseline, if a urine specimen is able to be obtained we will send sample for urinalysis to rule out infection. Blood cultures showing no growth to date. Patient undergoing dialysis per nephrology. Still continues to remain hypoxic, continue to wean. Subjective: Patient seen and examined at bedside. No acute events overnight. She is feeling a little tired compared to yesterday. She claims that she feels better compared to his home, will like to stay another day before he can be discharged tomorrow. She denies any chest pain, shortness of breath, abdominal pain. She continues to remain on 2 L of oxygen. Pertinent positives and negatives as discussed above, a complete review of systems was performed and all other systems are negative. Vitals Signs Reviewed. General: nontoxic, no distress, appears at stated age Derm: warm, dry Head: atraumatic, normocephalic, symmetric Eyes: EOMI, no lid lag, anicteric sclera Mouth: no lip lesion, mucus membranes moist Cardiovascular: S1S2 reg, systolic murmur, dialysis AV fistula in right upper extremity Lungs: CTA bilateral, no rhonchi, no rales , no accessory muscle use, 2 L nasal cannula Abdominal: soft, nontender to palpation, no guarding, no appreciable organomegaly Ext: no gross muscle atrophy, no edema, no contractures Neuro: CN II-XI grossly intact, no focal neuro deficits Psych: Alert, oriented, appropriate affect Assessment and Plan: Acute encephalopathy, Secondary to hypercapnic respiratory failure, resolved. Acute respiratory failure with hypoxia and hypercapnia Hx of COPD -Wean oxygen, still on 2 L, keep SpO2 above 88% -Mental status improved -continue home inhalers -will provide flutter valve device for mucus clearance Hyperkalemia - resolved ESRD on dialysis -Nephrology consulted -Hold home Losartan at this time secondary to hyperkalemia. -Patient received Lokelma 10 g 4 doses. Leukocytosis, believed to be reactive -No acute signs of infection -Pt denies any complaints and is oliguric at baseline -Blood cultures showing no growth to date. Chronic Pain -Methadone - likely also contributing to hypercapnic Respiratory failure, will need outpatient evaluation to further taper methadone use Paroxysmal atrial fib -Eliquis. Hypertension -amlodopine. Diabetes Mellitus -Glycemic protocol with novolog sliding scale. Hypothyroidism - levothyroxin Dyslipidemia -Atorvastatin DVT ppx: eliquis Code status: Full code Anticipated discharge place: Home, uses a wheelchair Anticipated discharge time: Likely Tomorrow Objective - Vital Signs Vital signs: Vital Signs Temp 98.1 F 03/06/22 08:50 Pulse 73 03/06/22 11:10 Resp 18 03/06/22 11:10 BP 100/62 03/06/22 11:10 Pulse Ox 88 L 03/06/22 11:10 FiO2 35 03/04/22 03:53 Intake & Output 03/05/22 03/06/22 03/06/22 18:59 06:59 18:59 Intake Total 540 Output Total 1800 Balance -1260 Intake: Oral 240 Hemodialysis 300 Output: Hemodialysis 1800 Other: Voiding Method Bedside Commode Bedside Commode # Voids 0 1 1 - Labs CBC & Chem 7: 03/05/22 08:50 03/06/22 08:38 Labs: Abnormal Lab Results - Last 24 Hours (Table) 03/05/22 03/05/22 03/06/22 Range/Units 11:31 16:43 07:02 Chloride (98-107) mmol/L BUN (7-17) mg/dL Creatinine (0.52-1.04) mg/dL Glucose (74-99) mg/dL POC Glucose (mg/dL) 114 H 227 H 122 H (70-110) mg/dL 03/06/22 Range/Units 08:38 Chloride 96 L (98-107) mmol/L BUN 34 H (7-17) mg/dL Creatinine 5.27 H (0.52-1.04) mg/dL Glucose 190 H (74-99) mg/dL POC Glucose (mg/dL) (70-110) mg/dL Microbiology - Last 24 Hours (Table) 03/02/22 15:30 Blood Culture - Preliminary Blood No Growth after 72 hours 03/02/22 15:45 Blood Culture - Preliminary Blood No Growth after 72 hours
--- NOTE | 2022-03-06 11:42 | P.PN ---
Subjective Patient is seen in follow-up for end-stage renal disease. She is maintained on hemodialysis on Friday schedule via AV fistula. Denies chest pain or shortness of breath. No vomiting or diarrhea. Oral intake better. No problems with dialysis yesterday. Currently on room air. Vital signs are stable. General: Awake. No acute distress. HEENT: Head exam is unremarkable. On NC. LUNGS: Breath sounds decreased. HEART: Rate and Rhythm are regular. ABDOMEN: Soft, no distention. EXTREMITITES: No edema. Objective - Vital Signs Vital signs: Vital Signs Temp 98.1 F 03/06/22 08:50 Pulse 73 03/06/22 11:10 Resp 18 03/06/22 11:10 BP 100/62 03/06/22 11:10 Pulse Ox 88 L 03/06/22 11:10 FiO2 35 03/04/22 03:53 Intake & Output 03/05/22 03/06/22 03/06/22 18:59 06:59 18:59 Intake Total 540 Output Total 1800 Balance -1260 Intake: Oral 240 Hemodialysis 300 Output: Hemodialysis 1800 Other: Voiding Method Bedside Commode Bedside Commode # Voids 0 1 1 - Labs CBC & Chem 7: 03/05/22 08:50 03/06/22 08:38 Labs: Abnormal Lab Results - Last 24 Hours (Table) 03/05/22 03/06/22 03/06/22 Range/Units 16:43 07:02 08:38 Chloride 96 L (98-107) mmol/L BUN 34 H (7-17) mg/dL Creatinine 5.27 H (0.52-1.04) mg/dL Glucose 190 H (74-99) mg/dL POC Glucose (mg/dL) 227 H 122 H (70-110) mg/dL Microbiology - Last 24 Hours (Table) 03/02/22 15:30 Blood Culture - Preliminary Blood No Growth after 72 hours 03/02/22 15:45 Blood Culture - Preliminary Blood No Growth after 72 hours Assessment and Plan Plan: Assessment: 1. End-stage renal disease maintained on hemodialysis on Friday schedule. 2. Mild hyperkalemia from chronic kidney disease and missed dialysis treatment. Resolved. 3. Hypertension with chronic kidney disease. Blood pressure on the lower side. 4. Chronic kidney disease mineral bone disease maintained on PhosLo. Plan: Hemodialysis tomorrow.
[2022-03-06 12:00] LABS: Glucose,Whole Blood 200 mg/dL (70-110)
[2022-03-06] MEDS: ALPRAZolam 1 MG TAB PO PRN (16:08)
[2022-03-06 16:39] LABS: Glucose,Whole Blood 197 mg/dL (70-110)
[2022-03-06] MEDS: SODIUM CHLORIDE 0.9% 1,000 ML IV SCH (19:22)
[2022-03-06 20:08] LABS: Glucose,Whole Blood 203 mg/dL (70-110)
[2022-03-06] MEDS: ATORVASTATIN 40 MG TAB PO SCH (21:15)
[2022-03-07 06:24] LABS: Glucose,Whole Blood 49 mg/dL (70-110)
[2022-03-07] MEDS: INSULIN ASPART (NovoLOG) 100 UNIT/ML VIAL SQ SCH ×4 (06:31→20:39)
[2022-03-07 06:45] LABS: Glucose,Whole Blood 56 mg/dL (70-110)
[2022-03-07] MEDS: CALCIUM ACETATE 667 MG TAB PO SCH ×3 (06:56→16:51)
[2022-03-07] MEDS: ACETAMINOPHEN TAB 325 MG TAB PO PRN ×2 (06:56→20:39)
[2022-03-07] MEDS: LEVOTHYROXINE 75 MCG TAB PO SCH (06:56)
[2022-03-07 07:07] LABS: Glucose,Whole Blood 73 mg/dL (70-110)
[2022-03-07] MEDS: SYMBICORT 80-4.5 MCG INHALER INHALATION SCH ×2 (08:08→19:23)
[2022-03-07] MEDS: IPRATROPIUM-ALBUTEROL 3 ML NEB INHALATION SCH ×4 (08:08→19:22)
[2022-03-07] MEDS: METHADONE 5 MG TAB PO SCH (11:23)
[2022-03-07] MEDS: FOLIC ACID-VIT B COMPLEX-VIT C 1 CAP PO SCH (11:23)
[2022-03-07] MEDS: PANTOPRAZOLE 40 MG TABLET PO SCH (11:23)
[2022-03-07] MEDS: APIXABAN 2.5 MG TABLET PO SCH ×2 (11:23→20:39)
[2022-03-07] MEDS: METHADONE 10 MG TAB PO SCH (11:26)
[2022-03-07 11:42] LABS: Glucose,Whole Blood 143 mg/dL (70-110)
--- NOTE | 2022-03-07 12:08 | P.DS ---
Providers Date of admission: 03/02/22 18:46 Expected date of discharge: 03/07/22 Attending physician: Shraddha Henson MD Consults: 03/02/22 18:46 Consult Physician Routine Consulting Provider: Aditi Fraga Consult Reason/Comments: Missed dialysis. Hyperkalemia. Do you want consulting provider notified?: Yes Primary care physician: Souleymane Shah [facility] Hospital Course: Discharge Diagnosis: Acute encephalopathy Acute respiratory failure with hypoxia and hypercapnia History of COPD Bacteremia ESRD on dialysis Leukocytosis Chronic pain/opioid use disorder Paroxysmal atrial fibrillation Hypertension Insulin-dependent Diabetes Hypothyroidism Dyslipidemia Hospital Course: 71-year-old female with history of ESRD on hemodialysis presented with altered m ental status. She was found to have acute hypoxic and hypercapnic respiratory failure. Chest x-ray was negative for any acute cardiopulmonary process. CT head was negative for any acute process, revealing cerebral atrophy. Labs were significant for WBC of 16.9, hyperkalemia up to 6.3, BUN of 67, creatinine 7.4, pH 7.3, pCO2 66. Nephrology was consulted. Patient was given lokelma. No acute signs or symptoms of infection. Her encephalopathy was likely metabolic, which improved with dialysis. Leukocytosis was likely reactive. Patient has a history of COPD, and continues to require 2 L of oxygen in the hospital. At the time of discharge, amlodipine and midodrine were discontinued due to stable blood pressure. Losartan was discontinued given hyperkalemia. She will have a follow-up with PCP and nephrology. Would recommend to slowly decrease methadone as an outpatient as it could potentially lead to further hypoventilation, and hypercapnia Patient seen and examined at bedside. General: nontoxic, no distress, appears at stated age Derm: warm, dry Head: atraumatic, normocephalic, symmetric Eyes: EOMI, no lid lag, anicteric sclera Mouth: no lip lesion, mucus membranes moist Cardiovascular: S1S2 reg, systolic murmur, dialysis AV fistula in right upper extremity Lungs: CTA bilateral, no rhonchi, no rales , no accessory muscle use, 2 L nasal cannula Abdominal: soft, nontender to palpation, no guarding, no appreciable organomegaly Ext: no gross muscle atrophy, no edema, no contractures Neuro: CN II-XI grossly intact, no focal neuro deficits Psych: Alert, oriented, appropriate affect A total of 41 minutes of time were spent preparing this complex discharge summary. Patient was discharged on 03/07/22 at 11:56. Patient Condition at Discharge: Stable Plan - Discharge Summary Discharge Rx Participant: Yes New Discharge Prescriptions: Continue Insulin Degludec [Tresiba Flextouch U-100 Pen] 10 units SQ DAILY Omeprazole 20 mg PO DAILY Levothyroxine Sodium [Synthroid] 150 mcg PO DAILY Levocetirizine Dihydrochloride 5 mg PO BID Atorvastatin [Lipitor] 40 mg PO HS Calcium Acetate [PhosLo] 1,334 mg PO TID-W/MEALS ALPRAZolam [Xanax] 1 mg PO Q8H PRN PRN Reason: Anxiety Methadone HCl [Methadone Intensol] 125 mg PO DAILY Insulin Lispro [humaLOG Kwikpen] See Protocol SQ AC-TID Furosemide [Lasix] 20 mg PO SUMOWEFR Fluticasone/Umeclidin/Vilanter [Trelegy Ellipta 200-62.5-25] 1 puff INHALATION RT-DAILY Nephro-Ann 0.8mg 1 cap PO DAILY Cholecalciferol [Vitamin D3 (25 Mcg = 1000 Iu)] 50 mcg PO DAILY Apixaban [Eliquis] 2.5 mg PO BID Ammonium Lactate Lotion [Lac-Hydrin 12% Lotion] 1 applic TOPICAL BID PRN PRN Reason: Dry Skin Vit C/E/Zn/Coppr/Lutein/Zeaxan [Preservision Areds 2 Softgel] 2 cap PO DAILY Lidocaine 5% Oint [Xylocaine 5% Oint] 1 applic TOPICAL BID Discontinued Midodrine [ProAmatine] 5 mg PO TUTHSA PRN PRN Reason: low bp @dialysis Losartan [Cozaar] 25 mg PO DAILY amLODIPine [Norvasc] 5 mg PO TUTHSA PRN PRN Reason: high bp @dialysis Discharge Medication List ALPRAZolam [Xanax] 1 mg PO Q8H PRN 04/18/20 [History] Atorvastatin [Lipitor] 40 mg PO HS 04/18/20 [History] Calcium Acetate [PhosLo] 1,334 mg PO TID-W/MEALS 04/18/20 [History] Insulin Degludec [Tresiba Flextouch U-100 Pen] 10 units SQ DAILY 04/18/20 [History] Levocetirizine Dihydrochloride 5 mg PO BID 04/18/20 [History] Levothyroxine Sodium [Synthroid] 150 mcg PO DAILY 04/18/20 [History] Methadone HCl [Methadone Intensol] 125 mg PO DAILY 04/18/20 [History] Omeprazole 20 mg PO DAILY 04/18/20 [History] Furosemide [Lasix] 20 mg PO SUMOWEFR 05/20/20 [History] Insulin Lispro [humaLOG Kwikpen] See Protocol SQ AC-TID 05/20/20 [History] Apixaban [Eliquis] 2.5 mg PO BID 12/05/20 [History] Ammonium Lactate Lotion [Lac-Hydrin 12% Lotion] 1 applic TOPICAL BID PRN 08/28/21 [History] Lidocaine 5% Oint [Xylocaine 5% Oint] 1 applic TOPICAL BID 08/28/21 [History] Vit C/E/Zn/Coppr/Lutein/Zeaxan [Preservision Areds 2 Softgel] 2 cap PO DAILY 08/28/21 [History] Fluticasone/Umeclidin/Vilanter [Trelegy Ellipta 200-62.5-25] 1 puff INHALATION RT-DAILY 01/01/22 [History] Nephro-Ann 0.8mg 1 cap PO DAILY 01/01/22 [History] Cholecalciferol [Vitamin D3 (25 Mcg = 1000 Iu)] 50 mcg PO DAILY 02/12/22 [History] Follow up Appointment(s)/Referral(s): Souleymane Celaya DO [Primary Care Provider] - 1-2 days Patient Instructions/Handouts: Dialysis Diet (DC) Activity/Diet/Wound Care/Special Instructions: Patient will require 2L O2 r/t COPD Discharge Disposition: HOME WITH HOME HEALTH SERVICES
--- NOTE | 2022-03-07 12:23 | P.PN ---
Subjective Patient is seen for follow-up for end-stage renal disease. Patient is seen on hemodialysis, tolerating her treatment well. 1.7 L of fluid removed. Patient was complaining of shortness of breath when her O2 was off. Objective - Vital Signs Vital signs: Vital Signs Temp 97.8 F 03/07/22 10:52 Pulse 75 03/07/22 11:07 Resp 19 03/07/22 10:52 BP 133/63 03/07/22 10:52 Pulse Ox 86 L 03/07/22 11:07 FiO2 35 03/04/22 03:53 Intake & Output 03/06/22 03/07/22 03/07/22 18:59 06:59 18:59 Intake Total 418 Output Total 1700 Balance -1282 Weight 60.4 kg Intake: Oral 118 Hemodialysis 300 Output: Hemodialysis 1700 Other: Voiding Method Bedside Commode Bedside Commode Bedside Commode # Voids 1 - Exam Awake, comfortable, not in any acute distress Examination of the heart S1 and S2 Examination of the lungs bilateral breath sounds are heard Abdomen is soft nontender Examination lower extremities shows edema 1+ right leg, left AKA [employer] exam grossly intact - Labs CBC & Chem 7: 03/05/22 08:50 03/06/22 08:38 Labs: Abnormal Lab Results - Last 24 Hours (Table) 03/06/22 03/06/22 03/07/22 Range/Units 16:37 20:06 06:22 POC Glucose (mg/dL) 197 H 203 H 49 L (70-110) mg/dL 03/07/22 03/07/22 Range/Units 06:44 11:23 POC Glucose (mg/dL) 56 L 143 H (70-110) mg/dL Microbiology - Last 24 Hours (Table) 03/02/22 15:30 Blood Culture - Preliminary Blood No Growth after 96 hours 03/02/22 15:45 Blood Culture - Preliminary Blood No Growth after 96 hours Assessment and Plan Assessment: 1. End-stage renal disease maintained on hemodialysis on Friday schedule. 2. Mild hyperkalemia from chronic kidney disease and missed dialysis treatment. Resolved. 3. Hypertension with chronic kidney disease. Blood pressure on the lower side. 4. Chronic kidney disease mineral bone disease maintained on PhosLo. Plan: Next treatment on 03/09/2022.
[2022-03-07] MEDS: predniSONE 20 MG TAB PO SCH (16:51)
[2022-03-07 16:58] LABS: Glucose,Whole Blood 208 mg/dL (70-110)
[2022-03-07] MEDS: SODIUM CHLORIDE 0.9% 1,000 ML IV SCH (18:32)
[2022-03-07 19:58] LABS: Glucose,Whole Blood 187 mg/dL (70-110)
[2022-03-07] MEDS: ATORVASTATIN 40 MG TAB PO SCH (20:39)
[2022-03-08 06:07] LABS: Glucose,Whole Blood 237 mg/dL (70-110)
[2022-03-08] MEDS: LEVOTHYROXINE 75 MCG TAB PO SCH (07:23)
[2022-03-08] MEDS: CALCIUM ACETATE 667 MG TAB PO SCH ×3 (07:23→15:40)
[2022-03-08] MEDS: ACETAMINOPHEN TAB 325 MG TAB PO PRN (07:23)
[2022-03-08] MEDS: INSULIN ASPART (NovoLOG) 100 UNIT/ML VIAL SQ SCH ×3 (07:24→15:40)
[2022-03-08] MEDS: SYMBICORT 80-4.5 MCG INHALER INHALATION SCH (07:38)
[2022-03-08] MEDS: IPRATROPIUM-ALBUTEROL 3 ML NEB INHALATION SCH ×3 (07:38→15:14)
[2022-03-08] MEDS: METHADONE 10 MG TAB PO SCH (09:35)
[2022-03-08] MEDS: METHADONE 5 MG TAB PO SCH (09:36)
[2022-03-08] MEDS: PANTOPRAZOLE 40 MG TABLET PO SCH (09:36)
[2022-03-08] MEDS: predniSONE 20 MG TAB PO SCH (09:36)
[2022-03-08] MEDS: APIXABAN 2.5 MG TABLET PO SCH (09:36)
[2022-03-08] MEDS: FOLIC ACID-VIT B COMPLEX-VIT C 1 CAP PO SCH (09:38)
--- NOTE | 2022-03-08 10:29 | P.PN ---
Subjective Patient is seen in follow-up for end-stage renal disease. She is maintained on hemodialysis on Friday schedule via AV fistula. Denies chest pain or shortness of breath. No vomiting or diarrhea. Oral intake better. No problems with dialysis yesterday. Vital signs are stable. General: Awake. No acute distress. HEENT: Head exam is unremarkable. On NC. LUNGS: Breath sounds decreased. HEART: Rate and Rhythm are regular. ABDOMEN: Soft, no distention. EXTREMITITES: No edema. Objective - Vital Signs Vital signs: Vital Signs Temp 98.1 F 03/08/22 04:00 Pulse 92 03/08/22 04:00 Resp 19 03/08/22 04:00 BP 123/71 03/08/22 04:00 Pulse Ox 93 L 03/08/22 04:00 FiO2 35 03/04/22 03:53 Intake & Output 03/07/22 03/08/22 03/08/22 18:59 06:59 18:59 Intake Total 880 118 Output Total 3200 Balance -2320 118 Weight 65.5 kg Intake: Oral 580 118 Hemodialysis 300 Output: Hemodialysis 1700 Other 1500 Other: Voiding Method Bedside Commode Bedside Commode # Voids 1 - Labs CBC & Chem 7: 03/05/22 08:50 03/06/22 08:38 Labs: Abnormal Lab Results - Last 24 Hours (Table) 03/07/22 03/07/22 03/07/22 Range/Units 11:23 16:41 19:56 POC Glucose (mg/dL) 143 H 208 H 187 H (70-110) mg/dL 03/08/22 Range/Units 06:05 POC Glucose (mg/dL) 237 H (70-110) mg/dL Microbiology - Last 24 Hours (Table) 03/02/22 15:30 Blood Culture - Preliminary Blood No Growth after 120 hours 03/02/22 15:45 Blood Culture - Preliminary Blood No Growth after 120 hours Assessment and Plan Plan: Assessment: 1. End-stage renal disease maintained on hemodialysis on Friday schedule. 2. Mild hyperkalemia from chronic kidney disease and missed dialysis treatment. Resolved. 3. Hypertension with chronic kidney disease. Controlled. 4. Chronic kidney disease mineral bone disease maintained on PhosLo. Plan: Hemodialysis tomorrow. Possible discharge today.
--- NOTE | 2022-03-08 11:37 | P.DS ---
Providers Date of admission: 03/02/22 18:46 Expected date of discharge: 03/08/22 Attending physician: Shraddha Henson MD Consults: 03/02/22 18:46 Consult Physician Routine Consulting Provider: Aditi Fraga Consult Reason/Comments: Missed dialysis. Hyperkalemia. Do you want consulting provider notified?: Yes Primary care physician: Souleymane Shah [facility] Course: Discharge Diagnosis: Acute encephalopathy Acute respiratory failure with hypoxia and hypercapnia Acute COPD exacerbation ESRD on dialysis Hyperkalemia Leukocytosis Chronic pain/opioid use disorder Paroxysmal atrial fibrillation Hypertension Insulin-dependent Diabetes Hypothyroidism Dyslipidemia Hospital Course: 71-year-old female with history of ESRD on hemodialysis presented with altered mental status. She was found to have acute hypoxic and hypercapnic respiratory failure. Chest x-ray was negative for any acute cardiopulmonary process. CT head was negative for any acute process, revealing cerebral atrophy. Labs were significant for WBC of 16.9, hyperkalemia up to 6.3, BUN of 67, creatinine 7.4, pH 7.3, pCO2 66. Nephrology was consulted. Patient was given lokelma. No acute signs or symptoms of infection. Her encephalopathy was likely metabolic, which improved with dialysis. Leukocytosis was likely reactive. Patient has a history of COPD, and continues to require 2 L of oxygen in the hospital. Patient will be discharged on 5 days total of oral prednisone for acute COPD exacerbation. At the time of discharge, amlodipine and midodrine were discontinued due to stable blood pressure. Losartan was discontinued given hyperkalemia. She will have a follow-up with PCP and nephrology. Would recommend to slowly decrease methadone as an outpatient as it could potentially lead to further hypoventilation, and hypercapnia. Patient seen and examined at bedside. Vital signs reviewed and stable. General: nontoxic, no distress, appears at stated age Derm: warm, dry Head: atraumatic, normocephalic, symmetric Eyes: EOMI, no lid lag, anicteric sclera Mouth: no lip lesion, mucus membranes moist Cardiovascular: S1S2 reg, systolic murmur, dialysis AV fistula in right upper extremity Lungs: CTA bilateral, no rhonchi, no rales , no accessory muscle use, 2 L nasal cannula Abdominal: soft, nontender to palpation, no guarding, no appreciable organomegaly Ext: no gross muscle atrophy, no edema, no contractures Neuro: CN II-XI grossly intact, no focal neuro deficits Psych: Alert, oriented, appropriate affect A total of 45 minutes of time were spent preparing this complex discharge summary. Patient was discharged on 03/08/22 at 13:17. Patient Condition at Discharge: Stable Plan - Discharge Summary Discharge Rx Participant: Yes New Discharge Prescriptions: New predniSONE [Deltasone] 40 mg PO DAILY #4 tab guaiFENesin [Mucinex] 600 mg PO Q12HR #10 tab Continue Insulin Degludec [Tresiba Flextouch U-100 Pen] 10 units SQ DAILY Omeprazole 20 mg PO DAILY Levothyroxine Sodium [Synthroid] 150 mcg PO DAILY Levocetirizine Dihydrochloride 5 mg PO BID Atorvastatin [Lipitor] 40 mg PO HS Calcium Acetate [PhosLo] 1,334 mg PO TID-W/MEALS ALPRAZolam [Xanax] 1 mg PO Q8H PRN PRN Reason: Anxiety Methadone HCl [Methadone Intensol] 125 mg PO DAILY Insulin Lispro [humaLOG Kwikpen] See Protocol SQ AC-TID Furosemide [Lasix] 20 mg PO SUMOWEFR Fluticasone/Umeclidin/Vilanter [Trelegy Ellipta 200-62.5-25] 1 puff INHALATION RT-DAILY Nephro-Ann 0.8mg 1 cap PO DAILY Cholecalciferol [Vitamin D3 (25 Mcg = 1000 Iu)] 50 mcg PO DAILY Apixaban [Eliquis] 2.5 mg PO BID Ammonium Lactate Lotion [Lac-Hydrin 12% Lotion] 1 applic TOPICAL BID PRN PRN Reason: Dry Skin Vit C/E/Zn/Coppr/Lutein/Zeaxan [Preservision Areds 2 Softgel] 2 cap PO DAILY Lidocaine 5% Oint [Xylocaine 5% Oint] 1 applic TOPICAL BID Discontinued Midodrine [ProAmatine] 5 mg PO TUTHSA PRN PRN Reason: low bp @dialysis Losartan [Cozaar] 25 mg PO DAILY amLODIPine [Norvasc] 5 mg PO TUTHSA PRN PRN Reason: high bp @dialysis Discharge Medication List ALPRAZolam [Xanax] 1 mg PO Q8H PRN 04/18/20 [History] Atorvastatin [Lipitor] 40 mg PO HS 04/18/20 [History] Calcium Acetate [PhosLo] 1,334 mg PO TID-W/MEALS 04/18/20 [History] Insulin Degludec [Tresiba Flextouch U-100 Pen] 10 units SQ DAILY 04/18/20 [History] Levocetirizine Dihydrochloride 5 mg PO BID 04/18/20 [History] Levothyroxine Sodium [Synthroid] 150 mcg PO DAILY 04/18/20 [History] Methadone HCl [Methadone Intensol] 125 mg PO DAILY 04/18/20 [History] Omeprazole 20 mg PO DAILY 04/18/20 [History] Furosemide [Lasix] 20 mg PO SUMOWEFR 05/20/20 [History] Insulin Lispro [humaLOG Kwikpen] See Protocol SQ AC-TID 05/20/20 [History] Apixaban [Eliquis] 2.5 mg PO BID 12/05/20 [History] Ammonium Lactate Lotion [Lac-Hydrin 12% Lotion] 1 applic TOPICAL BID PRN 08/28/21 [History] Lidocaine 5% Oint [Xylocaine 5% Oint] 1 applic TOPICAL BID 08/28/21 [History] Vit C/E/Zn/Coppr/Lutein/Zeaxan [Preservision Areds 2 Softgel] 2 cap PO DAILY 08/28/21 [History] Fluticasone/Umeclidin/Vilanter [Trelegy Ellipta 200-62.5-25] 1 puff INHALATION RT-DAILY 01/01/22 [History] Nephro-Ann 0.8mg 1 cap PO DAILY 01/01/22 [History] Cholecalciferol [Vitamin D3 (25 Mcg = 1000 Iu)] 50 mcg PO DAILY 02/12/22 [History] guaiFENesin [Mucinex] 600 mg PO Q12HR #10 tab 03/08/22 [Rx] predniSONE [Deltasone] 40 mg PO DAILY #4 tab 03/08/22 [Rx] Follow up Appointment(s)/Referral(s): Souleymane Celaya DO [Primary Care Provider] - 1-2 days [facility] [NON-STAFF] - Patient Instructions/Handouts: Dialysis Diet (DC) Discharge Disposition: HOME WITH HOME HEALTH SERVICES
[2022-03-08 11:41] LABS: Glucose,Whole Blood 173 mg/dL (70-110)
[2022-03-08] MEDS ORDERED: guaiFENesin 600 MG TABLET.ER PO SCH (12:00)
[2022-03-08] MEDS: SODIUM CHLORIDE 0.9% 1,000 ML IV SCH (13:09)
[2022-03-08 15:34] VITALS: BP 107/54; PULSE 58; RESP 16; TEMP 97.7
== END 2022-03-08 17:30 | disposition home health service (06) | DRG 70 ==
LOC: EC 14:40 → SUPCPDRO 14:40 → 3SCARD 18:46
PROVIDERS: ADMIT Internal Medicine; ATTEND Internal Medicine
PROC: 5A1D70Z Performance of Urinary Filtration, Intermittent, Less than 6 Hours Per Day (ICD-10-PCS; principal; 2022-03-04)
DX: G93.41 Metabolic encephalopathy (principal); J96.01 Acute respiratory failure with hypoxia; J96.02 Acute respiratory failure with hypercapnia; N18.6 End stage renal disease; R78.81 Bacteremia; E87.29 Other acidosis; I12.0 Hypertensive chronic kidney disease with stage 5 chronic kidney disease or end stage renal disease; J44.1 Chronic obstructive pulmonary disease with (acute) exacerbation; F11.20 Opioid dependence, uncomplicated; D63.1 Anemia in chronic kidney disease; E11.22 Type 2 diabetes mellitus with diabetic chronic kidney disease; E11.40 Type 2 diabetes mellitus with diabetic neuropathy, unspecified; E11.51 Type 2 diabetes mellitus with diabetic peripheral angiopathy without gangrene; E03.9 Hypothyroidism, unspecified; R34 Anuria and oliguria; I95.9 Hypotension, unspecified; H54.8 Legal blindness, as defined in USA; E87.5 Hyperkalemia; F17.210 Nicotine dependence, cigarettes, uncomplicated; M89.8X9 Other specified disorders of bone, unspecified site; G89.29 Other chronic pain; I48.0 Paroxysmal atrial fibrillation; E78.5 Hyperlipidemia, unspecified; D72.828 Other elevated white blood cell count; R01.1 Cardiac murmur, unspecified; R74.8 Abnormal levels of other serum enzymes; I25.10 Atherosclerotic heart disease of native coronary artery without angina pectoris; M41.9 Scoliosis, unspecified; Z20.822 Contact with and (suspected) exposure to COVID-19; Z89.612 Acquired absence of left leg above knee; Z91.15 Patient's noncompliance with renal dialysis; Z99.2 Dependence on renal dialysis; Z79.899 Other long term (current) drug therapy; Z79.4 Long term (current) use of insulin; Z79.890 Hormone replacement therapy; Z79.01 Long term (current) use of anticoagulants; Z79.51 Long term (current) use of inhaled steroids; Z79.52 Long term (current) use of systemic steroids; Z88.5 Allergy status to narcotic agent; Z86.14 Personal history of Methicillin resistant Staphylococcus aureus infection
CPT/HCPCS: 36415; 70450; 71045; 80048; 80053; 82140; 82803; 83735; 84484; 85025; 85027; 85610; 85730; 87040; 87635; 90935; 93005; 94640; 94660; 94760; 96374; 96375; 99285

== ENCOUNTER 2022-05-23 20:19 | Emergency (ER) | payer MEDICARE, OTHER ==
[2022-05-23 20:25] VITALS: TEMP 98.2
--- NOTE | 2022-05-23 21:22 | ED ---
General Adult HPI - General Chief complaint: Extremity Problem,Nontraumatic Stated complaint: Diabetic issue Source: patient, RN notes reviewed Mode of arrival: wheelchair Limitations: no limitations - History of Present Illness Initial comments: 71 year old female with past medical history of diabetes T II and dialysis presents to the emergency department for R 3rd toe pain. She noticed an ulcer at the tip of the toe which has gotten worse. She saw her primary care provider on 05/15/2022 who started her on ABX for which she reports did not work. She reports having severe neuropathy and is has decreased sensation in her toes normally. Yesterday she reports her toe was draining bloody pus. She is a hemodialysis patient and gets dialyzed //friday. She did get dialyzed today. - Related Data Home Medications Medication Instructions Recorded Confirmed ALPRAZolam [Xanax] 1 mg PO Q8H PRN 04/18/20 03/02/22 Atorvastatin [Lipitor] 40 mg PO HS 04/18/20 03/02/22 Calcium Acetate [PhosLo] 1,334 mg PO TID-W/MEALS 04/18/20 03/02/22 Insulin Degludec [Tresiba 10 units SQ DAILY 04/18/20 03/02/22 Flextouch U-100 Pen] Levocetirizine Dihydrochloride 5 mg PO BID 04/18/20 03/02/22 Levothyroxine Sodium [Synthroid] 150 mcg PO DAILY 04/18/20 03/02/22 Methadone HCl [Methadone Intensol] 125 mg PO DAILY 04/18/20 03/04/22 Omeprazole 20 mg PO DAILY 04/18/20 03/02/22 Furosemide [Lasix] 20 mg PO SUMOWEFR 05/20/20 03/02/22 Insulin Lispro [humaLOG Kwikpen] See Protocol SQ AC-TID 05/20/20 03/02/22 Apixaban [Eliquis] 2.5 mg PO BID 12/05/20 03/02/22 Ammonium Lactate Lotion 1 applic TOPICAL BID PRN 08/28/21 03/02/22 [Lac-Hydrin 12% Lotion] Lidocaine 5% Oint [Xylocaine 5% 1 applic TOPICAL BID 08/28/21 03/02/22 Oint] Vit C/E/Zn/Coppr/Lutein/Zeaxan 2 cap PO DAILY 08/28/21 03/02/22 [Preservision Areds 2 Softgel] Fluticasone/Umeclidin/Vilanter 1 puff INHALATION RT-DAILY 01/01/22 03/02/22 [Trelegy Ellipta 200-62.5-25] Nephro-Ann 0.8mg 1 cap PO DAILY 01/01/22 03/02/22 Cholecalciferol [Vitamin D3 (25 50 mcg PO DAILY 02/12/22 03/02/22 Mcg = 1000 Iu)] Previous Rx's Medication Instructions Recorded guaiFENesin [Mucinex] 600 mg PO Q12HR #10 tab 03/08/22 predniSONE [Deltasone] 40 mg PO DAILY #4 tab 03/08/22 Allergies Allergy/AdvReac Type Severity Reaction Status Date / Time pentazocine [From Talwin] AdvReac Unknown Verified 05/22/22 00:15 Review of Systems ROS Statement: Those systems with pertinent positive or pertinent negative responses have been documented in the HPI. ROS Other: All systems not noted in ROS Statement are negative. Past Medical History Past Medical History: Atrial Fibrillation, Cancer, COPD, Diabetes Mellitus, Eye Disorder, Hyperlipidemia, Hypertension, Renal Disease, Vascular Disorder Additional Past Medical History / Comment(s): Recent vulvar cancer with surgery, IDDM type II, neuropathy, ESRD with hemodialysis //, kidney cysts, anemia, PVD/L AKA, pt thinks DVTs R leg/L arm, past R leg wound, macular degeneration bilaterally/legally blind, chronic back pain, scoliosis, History of Any Multi-Drug Resistant Organisms: MRSA Date of last positivie culture/infection: 2015 MDRO Source:: left leg Past Surgical History: Adenoidectomy, Orthopedic Surgery, Tonsillectomy Additional Past Surgical History / Comment(s): Recent total vulvectomy at [facility] in [facility], L arm dialysis graft/multiple surgeries to repair, R arm fistula, L AKA, L chest port, surgery on L arm and R leg pt thinks to remove blood clots, vulva surgery Past Anesthesia/Blood Transfusion Reactions: No Reported Reaction Additional Past Anesthesia/Blood Transfusion Reaction / Comment(s): no problems with prior blood transfusions Past Psychological History: Anxiety Smoking Status: Current every day smoker, Light tobacco smoker Past Alcohol Use History: None Reported Past Drug Use History: None Reported - Past Family History Mother Additional Family Medical History / Comment(s): Mother of liver cirrhosis at the age of 34yrs. Father Family Medical History: Eye Disorder Additional Family Medical History / Comment(s): Macular degeneration. He at age 93 family Family Medical History: Unable to Obtain General Exam Limitations: no limitations General appearance: alert, in no apparent distress Head exam: Present: atraumatic, normocephalic, normal inspection Eye exam: Present: normal appearance, PERRL, EOMI. Absent: scleral icterus, conjunctival injection, periorbital swelling ENT exam: Present: normal exam, mucous membranes moist Neck exam: Present: normal inspection. Absent: tenderness, meningismus, lymphadenopathy Respiratory exam: Present: normal lung sounds bilaterally. Absent: respiratory distress, wheezes, rales, rhonchi, stridor Cardiovascular Exam: Present: regular rate, normal rhythm, normal heart sounds. Absent: systolic murmur, diastolic murmur, rubs, gallop, clicks GI/Abdominal exam: Present: soft, normal bowel sounds. Absent: distended, te nderness, guarding, rebound, rigid Extremities exam: Present: full ROM, normal capillary refill, other (L BKA, RLE without great two, with ulcer on 3rd toe that is not actively draining, no crepitis ). Absent: tenderness, pedal edema, joint swelling, calf tenderness Back exam: Present: normal inspection Neurological exam: Present: alert, oriented X3, CN II-XII intact Psychiatric exam: Present: normal affect, normal mood Skin exam: Present: warm, dry, intact, normal color. Absent: rash Course Vital Signs 05/23/22 05/23/22 05/23/22 20:22 22:00 23:00 Temperature 98.2 F Pulse Rate 88 16 L 81 Respiratory 20 16 16 Rate Blood Pressure 154/74 107/61 100/78 O2 Sat by Pulse 94 L 98 91 L Oximetry 05/24/22 00:00 Temperature Pulse Rate 68 Respiratory 16 Rate Blood Pressure 113/62 O2 Sat by Pulse 98 Oximetry Medical Decision Making - Medical Decision Making Was pt. sent in by a medical professional or institution (, PA, BOILER COVERER, urgent care, hospital, or detention...) When possible be specific @ -self Did you speak to anyone other than the patient for history (EMS, parent, family, police, friend...)? What history was obtained from this source @ -[No] Did you review nursing and triage notes (agree or disagree)? Why? @ -[I reviewed and agree with nursing and triage notes] Were old charts reviewed (outside hosp., previous admission, EMS record, old EKG, old radiological studies, urgent care reports/EKG's, detention records)? Report findings @ -[No old charts were reviewed] Differential Diagnosis (chest pain, altered mental status, abdominal pain women, abdominal pain men, vaginal bleeding, weakness, fever, dyspnea, syncope, headache, dizziness, GI bleed, back pain, seizure, CVA, palpatations, mental health)? @ -[not applicable] EKG interpreted by me (3pts min.). @ -[As above] X-rays interpreted by me (1pt min.). @ -[None done] CT interpreted by me (1pt min.). @ -[None done] U/S interpreted by me (1pt. min.). @ -[None done] What testing was considered but not performed or refused? (CT, X-rays, U/S, labs)? Why? @ -[None] What meds were considered but not given or refused? Why? @ -[None] Did you discuss the management of the patient with other professionals (professionals i.e. , PA, BOILER COVERER, lab, RT, psych nurse, social work specialist, pulley worker, teacher, chief learning officer, welfare case worker)? Give summary @ -[No] Was smoking cessation discussed for >3mins.? @ -[No] Was critical care preformed (if so, how long)? @ -[No] Were there social determinants of health that impacted care today? How? (Homelessness, low income, unemployed, alcoholism, drug addiction, transportation, low edu. Level, literacy, decrease access to med. care, skilled nursing, rehab)? @ -[No] Was there de-escalation of care discussed even if they declined (Discuss DNR or withdrawal of care, Hospice)? DNR status @ -[No] What co-morbidities impacted this encounter? (DM, HTN, Smoking, COPD, CAD, Cancer, CVA, ARF, Chemo, Hep., AIDS, mental health diagnosis, sleep apnea, morbid obesity)? @ -[None] Was patient admitted / discharged? Hospital course, mention meds given and route, prescriptions, significant lab abnormalities, going to OR and other pertinent info. @ -Patient presents to the emergency department for L toe pain. Patient had lab work and performed in the emergency department which were essentially unremarkable. I discussed the results in detail with the patent, who verbalized understanding. Return precautions were discussed with recommend close follow up with PCP in 1-2 days. Patient was discharged in stable condition. I discussed the Case with LAVELL Ruiz who agrees with plan for discharge Undiagnosed new problem with uncertain prognosis? @ Drug Therapy requiring intensive monitoring for toxicity (Heparin, Nitro, Insulin, Cardizem)? @ -[No] Were any procedures done? @ -[No] Diagnosis/symptom? @ -[default] Acute, or Chronic, or Acute on Chronic? @ -[default] Uncomplicated (without systemic symptoms) or Complicated (systemic symptoms)? @ -[default] Side effects of treatment? @ -[No] Exacerbation, Progression, or Severe Exacerbation? @ -[No] Poses a threat to life or bodily function? How? (Chest pain, [place], VA, pneumonia, PE, COPD, DKA, ARF, appy, cholecystitis, CVA, Diverticulitis, Homicidal, Suicidal, threat to staff... and all critical care pts) @ -[No] - Lab Data Result diagrams: 05/23/22 22:25 05/23/22 22:25 Lab Results 05/23/22 05/23/22 05/23/22 Range/Units 22:25 22:25 22:25 WBC 9.1 (3.8-10.6) k/uL RBC 3.85 (3.80-5.40) m/uL Hgb 12.4 (11.4-16.0) gm/dL Hct 37.8 (34.0-46.0) % MCV 98.2 (80.0-100.0) fL MCH 32.2 (25.0-35.0) pg MCHC 32.8 (31.0-37.0) g/dL RDW 14.9 (11.5-15.5) % Plt Count 210 (150-450) k/uL MPV 8.9 Neutrophils % 57 % Lymphocytes % 28 % Monocytes % 7 % Eosinophils % 5 % Basophils % 1 % Neutrophils # 5.2 (1.3-7.7) k/uL Lymphocytes # 2.5 (1.0-4.8) k/uL Monocytes # 0.6 (0-1.0) k/uL Eosinophils # 0.4 (0-0.7) k/uL Basophils # 0.1 (0-0.2) k/uL Hypochromasia Slight Macrocytosis Slight Sodium 140 (137-145) mmol/L Potassium 5.1 (3.5-5.1) mmol/L Chloride 96 L (98-107) mmol/L Carbon Dioxide 33 H (22-30) mmol/L Anion Gap 11 mmol/L BUN 22 H (7-17) mg/dL Creatinine 3.69 H (0.52-1.04) mg/dL Est GFR (CKD-EPI)AfAm 14 (>60 ml/min/1.73 sqM) Est GFR (CKD-EPI)NonAf 12 (>60 ml/min/1.73 sqM) Glucose 150 H (74-99) mg/dL Plasma Lactic Acid Koby 1.7 (0.7-2.0) mmol/L Calcium 8.4 (8.4-10.2) mg/dL Total Bilirubin 0.5 (0.2-1.3) mg/dL AST 26 (14-36) U/L ALT 18 (4-34) U/L Alkaline Phosphatase 176 H (38-126) U/L C-Reactive Protein 0.7 (<1.0) mg/dL Total Protein 7.3 (6.3-8.2) g/dL Albumin 3.8 (3.5-5.0) g/dL Disposition Clinical Impression: Diabetic ulcer of both feet associated with type 2 diabetes mellitus Disposition: HOME SELF-CARE Condition: Stable Is patient prescribed a controlled substance at d/c from ED?: No Referrals: Nonstaff,Physician [REFERRING] - 1-2 days Jere Melgoza DPM [REFERRING] - 1-2 days Ren Stein DPM [STAFF PHYSICIAN] - 1-2 days Time of Disposition: 00:10
--- NOTE | 2022-05-23 21:52 | XR ---
EXAMINATION TYPE: XR foot complete RT DATE OF EXAM: 05/23/2022 COMPARISON: NONE HISTORY: Diabetic ulcer. Drainage. TECHNIQUE: 3 view FINDINGS: There is amputation deformities at the level of the mid shaft of the first second and third metatarsals. The third toe is still present. There is flexion deformity of the fourth toe. No focal bone destruction. The hindfoot is intact. IMPRESSION: Multiple amputation deformities. No definite sign of osteomyelitis.
[2022-05-23 22:33] VITALS: RESP 16
[2022-05-23 22:40] LABS: Basophils # (A) 0.1 k/uL (0-0.2); Basophils % (A) 1 %; Eosinophils # (A) 0.4 k/uL (0-0.7); Eosinophils % (A) 5 %; HCT 37.8 % (34.0-46.0); HGB 12.4 gm/dL (11.4-16.0); Hypochromasia Slight; Lymphocytes # (A) 2.5 k/uL (1.0-4.8); Lymphocytes % (A) 28 %; MCH 32.2 pg (25.0-35.0); MCHC 32.8 g/dL (31.0-37.0); MCV 98.2 fL (80.0-100.0); Macrocytosis Slight; Mean Platelet Volume 8.9; Monocytes # (A) 0.6 k/uL (0-1.0); Monocytes % (A) 7 %; Neutrophils # (A) 5.2 k/uL (1.3-7.7); Neutrophils % (A) 57 %; Platelet Count 210 k/uL (150-450); RBC 3.85 m/uL (3.80-5.40); RDW 14.9 % (11.5-15.5); WBC 9.1 k/uL (3.8-10.6)
[2022-05-23 22:55] LABS: Albumin 3.8 g/dL (3.5-5.0); C Reactive Protein 0.7 mg/dL (<1.0); Calcium 8.4 mg/dL (8.4-10.2); Potassium 5.1 mmol/L (3.5-5.1); Total Bilirubin 0.5 mg/dL (0.2-1.3); Total Protein 7.3 g/dL (6.3-8.2)
[2022-05-24 00:15] VITALS: BP 113/62; PULSE 68
== END 2022-05-24 00:32 | disposition home or self-care (01) ==
LOC: EC 20:19
DX: E11.622 Type 2 diabetes mellitus with other skin ulcer (principal); L97.819 Non-pressure chronic ulcer of other part of right lower leg with unspecified severity; L97.829 Non-pressure chronic ulcer of other part of left lower leg with unspecified severity; L98.499 Non-pressure chronic ulcer of skin of other sites with unspecified severity; I10 Essential (primary) hypertension; Z79.890 Hormone replacement therapy; Z88.8 Allergy status to other drugs, medicaments and biological substances; Z79.4 Long term (current) use of insulin; Z79.899 Other long term (current) drug therapy; Z90.79 Acquired absence of other genital organ(s)
CPT/HCPCS: 36415; 80053; 83605; 85025; 86140; 87040; 99284

== ENCOUNTER → 2022-06-03 | Outpatient (CLI) | payer MEDICARE, OTHER ==
--- NOTE | 2022-06-04 05:54 | MR ---
EXAMINATION TYPE: MR foot RT wo con DATE OF EXAM: 06/03/2022 COMPARISON: None HISTORY: Osteomylitis, toe amputation, blister to heel Multiplanar multiecho imaging of the right foot performed with no contrast. There is multiple amputation deformities of the right foot. There is amputation of the first and seco nd and third digits at the level of the mid shaft of the metatarsals. The third digit shows the phala nges floating distally. The fourth and fifth metatarsals are intact. There is destructive changes and soft tissue swelling involving the middle phalanx and distal phalanx of the fourth toe. The calcaneu s is intact. Achilles tendon is intact. There is mild subcutaneous edema around the forefoot. IMPRESSION: Destructive changes of the mid and distal phalanges of the fourth toe that could be osteomyelitis. Am putation type deformities of the first second and third digits. No evidence of osteomyelitis of the c alcaneus. Subcutaneous edema.
== END | disposition home or self-care (01) ==
LOC: RADMRIMAIN 16:34
PROVIDERS: ATTEND Podiatrist Foot & Ankle Surgery
DX: M86.8X7 Other osteomyelitis, ankle and foot (principal); Z89.021 Acquired absence of right finger(s); R60.0 Localized edema

== ENCOUNTER 2022-06-13 02:15 | Inpatient (IN) | payer MEDICARE, OTHER ==
[2022-06-13] MEDS ORDERED: DIPH,PERTUS(ACELL)TETVAC-LF 0.5 ML VIAL IM ONE (02:44)
[2022-06-13] MEDS ORDERED: VANCOMYCIN IV PER PHARMACY 1 EACH MISC MISCELLANE PRN (02:44)
--- NOTE | 2022-06-13 02:51 | ED ---
General Adult HPI - General Chief complaint: Extremity Problem,Nontraumatic Stated complaint: Right Foot Infection Time Seen by Provider: 06/13/22 02:17 Source: patient, RN notes reviewed, old records reviewed Mode of arrival: wheelchair Limitations: no limitations - History of Present Illness Initial comments: She is a 71-year-old female with past medical history remarkable for diabetes, ESRD on hemodialysis Friday who presents emergency Department complaining of a somewhat one-month history of right foot infection. His noticed it on her right toe, right heel. He has not improved. There was a trial of outpatient oral antibiotics. Patient has seen a psychiatric clinician, however they've been attempting to follow-up with infectious disease so that she can was started on outpatient IV antibiotics but they're having a difficult time getting in contact with them. Meanwhile, they noticed some increased redness of the lower leg in addition to the heel and foot. MRI of the foot was done approximately one week ago which revealed osteomyelitis of the metatarsals. Patient saw her PCP today who sent her in with a prescription to be admitted for IV antibiotics. They're frustrated, her daughter and herself because it seems like they have been unable to get anywhere outpatient to get treatment. Presents for further evaluation at this time.Patient endorses a history of multiple amputations including left leg amputation, right foot toe amputations - Related Data Home Medications Medication Instructions Recorded Confirmed ALPRAZolam [Xanax] 1 mg PO Q8H PRN 04/18/20 03/02/22 Atorvastatin [Lipitor] 40 mg PO HS 04/18/20 03/02/22 Calcium Acetate [PhosLo] 1,334 mg PO TID-W/MEALS 04/18/20 03/02/22 Insulin Degludec [Tresiba 10 units SQ DAILY 04/18/20 03/02/22 Flextouch U-100 Pen] Levocetirizine Dihydrochloride 5 mg PO BID 04/18/20 03/02/22 Levothyroxine Sodium [Synthroid] 150 mcg PO DAILY 04/18/20 03/02/22 Methadone HCl [Methadone Intensol] 125 mg PO DAILY 04/18/20 03/04/22 Omeprazole 20 mg PO DAILY 04/18/20 03/02/22 Furosemide [Lasix] 20 mg PO SUMOWEFR 05/20/20 03/02/22 Insulin Lispro [humaLOG Kwikpen] See Protocol SQ AC-TID 05/20/20 03/02/22 Apixaban [Eliquis] 2.5 mg PO BID 12/05/20 03/02/22 Ammonium Lactate Lotion 1 applic TOPICAL BID PRN 08/28/21 03/02/22 [Lac-Hydrin 12% Lotion] Lidocaine 5% Oint [Xylocaine 5% 1 applic TOPICAL BID 08/28/21 03/02/22 Oint] Vit C/E/Zn/Coppr/Lutein/Zeaxan 2 cap PO DAILY 08/28/21 03/02/22 [Preservision Areds 2 Softgel] Fluticasone/Umeclidin/Vilanter 1 puff INHALATION RT-DAILY 01/01/22 03/02/22 [Trelegy Ellipta 200-62.5-25] Nephro-Ann 0.8mg 1 cap PO DAILY 01/01/22 03/02/22 Cholecalciferol [Vitamin D3 (25 50 mcg PO DAILY 02/12/22 03/02/22 Mcg = 1000 Iu)] Previous Rx's Medication Instructions Recorded guaiFENesin [Mucinex] 600 mg PO Q12HR #10 tab 03/08/22 predniSONE [Deltasone] 40 mg PO DAILY #4 tab 03/08/22 Allergies Allergy/AdvReac Type Severity Reaction Status Date / Time pentazocine [From Kimmie] AdvReac Unknown Verified 06/13/22 02:19 Review of Systems ROS Statement: Those systems with pertinent positive or pertinent negative responses have been documented in the HPI. Review of Systems: CONST: Denies fever EYES: Denies blurry vision ENT: Denies nasal congestion C/V: Denies Chest pain RESP: Denies shortness of breath GI: Denies abdominal pain : Denies dysuria SKIN: Endorses worsening right foot infection MSK: Denies joint pain. NEURO: Denies headache ROS Other: All systems not noted in ROS Statement are negative. Past Medical History Past Medical History: Atrial Fibrillation, Cancer, COPD, Diabetes Mellitus, Eye Disorder, Hyperlipidemia, Hypertension, Renal Disease, Vascular Disorder Additional Past Medical History / Comment(s): Recent vulvar cancer with surgery, IDDM type II, neuropathy, ESRD with hemodialysis //, kidney cysts, anemia, PVD/L AKA, pt thinks DVTs R leg/L arm, past R leg wound, macular degeneration bilaterally/legally blind, chronic back pain, scoliosis, History of Any Multi-Drug Resistant Organisms: MRSA Date of last positivie culture/infection: 2015 MDRO Source:: left leg Past Surgical History: Adenoidectomy, Orthopedic Surgery, Tonsillectomy Additional Past Surgical History / Comment(s): Recent total vulvectomy at [facility] in [facility], L arm dialysis graft/multiple surgeries to repair, R arm fistula, L AKA, L chest port, surgery on L arm and R leg pt thinks to remove blood clots, vulva surgery Past Anesthesia/Blood Transfusion Reactions: No Reported Reaction Additional Past Anesthesia/Blood Transfusion Reaction / Comment(s): no problems with prior blood transfusions Past Psychological History: Anxiety Smoking Status: Current every day smoker, Light tobacco smoker Past Alcohol Use History: None Reported Past Drug Use History: None Reported - Past Family History Mother Additional Family Medical History / Comment(s): Mother of liver cirrhosis at the age of 34yrs. Father Family Medical History: Eye Disorder Additional Family Medical History / Comment(s): Macular degeneration. He at age 93 family Family Medical History: Unable to Obtain General Exam - General Exam Comments Initial Comments: General: Appears in no acute distress. HEAD: Normal with no signs of head trauma. EYES: PERRLA, EOMI, conjunctiva normal, no discharge. ENT: Hearing grossly intact, normal oropharynx. RESPIRATORY: Clear breath sounds bilaterally. No wheezes, rales, or rhonchi. C/V: Regular rate and rhythm. S1 and S2 auscultated, no edema, peripheral pulses 2+ and intact throughout. Right upper extremity AV fistula has a palpable thrill and audible bruit. ABD: Abd is soft, nontender, nondistended EXT: No acute abnormality. Has a history of left leg amputation, multiple toe amputations. SKIN: Right heel has a popped blister with a sore the size of a half dollar coin. It is open and draining. Mild erythema extending up the foreleg. Patient has had an old wound located over the right fourth toe. NEURO: Alert and oriented 4. No focal deficits. Limitations: no limitations Course Vital Signs 06/13/22 06/13/22 02:19 05:27 Temperature 98 F Pulse Rate 80 74 Respiratory 18 15 Rate Blood Pressure 124/76 129/88 O2 Sat by Pulse 98 97 Oximetry Medical Decision Making - Medical Decision Making Based on the patient's presentation and physical exam, I'm concerned for right foot and leg cellulitis and osteomyelitis. MRI does report osteomyelitis from 1 week ago. She is not currently on any antibiotics. Did ail a trial of oral antibiotics a few weeks back. We'll therefore obtain infectious laboratory studies, screening EKG. She has no other acute concerns at this time. Vital signs within acceptable limits. No strums of dialysis. We will obtain blood cultures and wound cultures. I will start the patient on IV vancomycin and Zosyn for osteomyelitis in a diabetic. patient sugars have been controlled per patient. She was in agreement with this plan. She'll be given Tylenol for pain control. She'll be given a TDap Booster. Wound and blood cultures were sent. Laboratory studies are within acceptable limits for the patient's baseline. Has an elevated BUN/creatinine the setting of ESRD on hemodialysis. No other acute findings. After the patient. She'll be admitted at this time on IV antibiotics. Vital signs within acceptable limits. she was in agreement with this plan. Infectious disease was consulted as well as nephrology for dialysis. I spoke with the admitting physician, city call Dr. Dougherty who accepted the patient. Was pt. sent in by a medical professional or institution (, PA, DATA PROCESSING AUDITOR, urgent care, hospital, or senior living...) When possible be specific @ -Yes, patient's PCP Did you speak to anyone other than the patient for history (EMS, parent, family, police, friend...)? What history was obtained from this source @ -Yes, patient's daughter who provided additional history. Did you review nursing and triage notes (agree or disagree)? Why? @ -I reviewed and agree with nursing and triage notes Were old charts reviewed (outside hosp., previous admission, EMS record, old EKG, old radiological studies, urgent care reports/EKG's, senior living records)? Report findings @ -Yes, old imaging, charts were reviewed. Differential Diagnosis (chest pain, altered mental status, abdominal pain women, abdominal pain men, vaginal bleeding, weakness, fever, dyspnea, syncope, headache, dizziness, GI bleed, back pain, seizure, CVA, palpatations, mental health)? @ -Osteomyelitis, cellulitis, foot wound. This differential was not all- inclusive. EKG interpreted by me (3pts min.). @ -As above X-rays interpreted by me (1pt min.). @ -None done CT interpreted by me (1pt min.). @ -None done U/S interpreted by me (1pt. min.). @ -None done What testing was considered but not performed or refused? (CT, X-rays, U/S, labs)? Why? @ -None What meds were considered but not given or refused? Why? @ -None Did you discuss the management of the patient with other professionals (professionals i.e. DrIdalia, PA, DATA PROCESSING AUDITOR, lab, RT, psych nurse, clinical social worker, waiter/waitress take out, teacher, home lending officer, major case detective)? Give summary @ -Dr. Dougherty who accepted the patient. Was smoking cessation discussed for >3mins.? @ -No Was critical care preformed (if so, how long)? @ -No Were there social determinants of health that impacted care today? How? ( Homelessness, low income, unemployed, alcoholism, drug addiction, transportation, low edu. Level, literacy, decrease access to med. care, custodial, rehab)? @ -No Was there de-escalation of care discussed even if they declined (Discuss DNR or withdrawal of care, Hospice)? DNR status @ -No What co-morbidities impacted this encounter? (DM, HTN, Smoking, COPD, CAD, Cancer, CVA, ARF, Chemo, Hep., AIDS, mental health diagnosis, sleep apnea, morbid obesity)? @ -Diabetes, history of osteo-myelitis, history of ESRD on dialysis Was patient admitted / discharged? Hospital course, mention meds given and route, prescriptions, significant lab abnormalities, going to OR and other pertinent info. @ -Patient was admitted to the hospital. See above for ED course. Undiagnosed new problem with uncertain prognosis? @ -No Drug Therapy requiring intensive monitoring for toxicity (Heparin, Nitro, Insulin, Cardizem)? @ -No Were any procedures done? @ -No Diagnosis/symptom? @ -Right foot osteomyelitis with failed outpatient treatment Acute, or Chronic, or Acute on Chronic? @ -Acute Uncomplicated (without systemic symptoms) or Complicated (systemic symptoms)? @ -Complicated Side effects of treatment? @ -No Exacerbation, Progression, or Severe Exacerbation? @ -No Poses a threat to life or bodily function? How? (Chest pain, USA, NE, pneumonia, PE, COPD, DKA, ARF, appy, cholecystitis, CVA, Diverticulitis, Homicidal, Suicidal, threat to staff... and all critical care pts) @ -Yes, if untreated can result in significant morbidity and mortality. Diagnosis/symptom? @ -Right lower extremity cellulitis Acute, or Chronic, or Acute on Chronic? @ -Acute Uncomplicated (without systemic symptoms) or Complicated (systemic symptoms)? @ -Complicated Side effects of treatment? @ -none Exacerbation, Progression, or Severe Exacerbation] @ -no Poses a threat to life or bodily function? @ -Yes, if untreated can result in significant morbidity and mortality. Diagnosis/symptom? @ -History of ESRD on hemodialysis Acute, or Chronic, or Acute on Chronic? @ -Chronic Uncomplicated (without systemic symptoms) or Complicated (systemic symptoms)? @ -Uncomplicated Side effects of treatment? @ -none Exacerbation, Progression, or Severe Exacerbation] @ -no Poses a threat to life or bodily function? @ -no - Lab Data Result diagrams: 06/13/22 03:05 06/13/22 03:05 Lab Results 06/13/22 06/13/22 06/13/22 Range/Units 03:05 03:05 03:05 WBC 10.1 (3.8-10.6) k/uL RBC 3.81 (3.80-5.40) m/uL Hgb 12.2 (11.4-16.0) gm/dL Hct 37.4 (34.0-46.0) % MCV 97.9 (80.0-100.0) fL MCH 32.1 (25.0-35.0) pg MCHC 32.7 (31.0-37.0) g/dL RDW 15.2 (11.5-15.5) % Plt Count 190 (150-450) k/uL MPV 9.6 Neutrophils % (Manual) 56 % Lymphocytes % (Manual) 28 % Monocytes % (Manual) 11 % Eosinophils % (Manual) 5 % Neutrophils # (Manual) 5.66 (1.3-7.7) k/uL Lymphocytes # (Manual) 2.83 (1.0-4.8) k/uL Monocytes # (Manual) 1.11 H (0-1.0) k/uL Eosinophils # (Manual) 0.51 (0-0.7) k/uL Nucleated RBCs 0 (0-0) /100 WBC Manual Slide Review Performed PT 12.2 H (9.0-12.0) sec INR 1.2 H (<1.2) APTT 29.4 (22.0-30.0) sec Sodium 138 (137-145) mmol/L Potassium 5.0 (3.5-5.1) mmol/L Chloride 94 L (98-107) mmol/L Carbon Dioxide 32 H (22-30) mmol/L Anion Gap 12 mmol/L BUN 58 H (7-17) mg/dL Creatinine 6.81 H (0.52-1.04) mg/dL Est GFR (CKD-EPI)AfAm 7 (>60 ml/min/1.73 sqM) Est GFR (CKD-EPI)NonAf 6 (>60 ml/min/1.73 sqM) Glucose 113 H (74-99) mg/dL Plasma Lactic Acid Koby (0.7-2.0) mmol/L Calcium 8.7 (8.4-10.2) mg/dL Total Bilirubin 0.4 (0.2-1.3) mg/dL AST 21 (14-36) U/L ALT 19 (4-34) U/L Alkaline Phosphatase 191 H (38-126) U/L Total Protein 7.1 (6.3-8.2) g/dL Albumin 3.8 (3.5-5.0) g/dL 06/13/22 Range/Units 03:05 WBC (3.8-10.6) k/uL RBC (3.80-5.40) m/uL Hgb (11.4-16.0) gm/dL Hct (34.0-46.0) % MCV (80.0-100.0) fL MCH (25.0-35.0) pg MCHC (31.0-37.0) g/dL RDW (11.5-15.5) % Plt Count (150-450) k/uL MPV Neutrophils % (Manual) % Lymphocytes % (Manual) % Monocytes % (Manual) % Eosinophils % (Manual) % Neutrophils # (Manual) (1.3-7.7) k/uL Lymphocytes # (Manual) (1.0-4.8) k/uL Monocytes # (Manual) (0-1.0) k/uL Eosinophils # (Manual) (0-0.7) k/uL Nucleated RBCs (0-0) /100 WBC Manual Slide Review PT (9.0-12.0) sec INR (<1.2) APTT (22.0-30.0) sec Sodium (137-145) mmol/L Potassium (3.5-5.1) mmol/L Chloride (98-107) mmol/L Carbon Dioxide (22-30) mmol/L Anion Gap mmol/L BUN (7-17) mg/dL Creatinine (0.52-1.04) mg/dL Est GFR (CKD-EPI)AfAm (>60 ml/min/1.73 sqM) Est GFR (CKD-EPI)NonAf (>60 ml/min/1.73 sqM) Glucose (74-99) mg/dL Plasma Lactic Acid Koby 1.5 (0.7-2.0) mmol/L Calcium (8.4-10.2) mg/dL Total Bilirubin (0.2-1.3) mg/dL AST (14-36) U/L ALT (4-34) U/L Alkaline Phosphatase (38-126) U/L Total Protein (6.3-8.2) g/dL Albumin (3.5-5.0) g/dL - EKG Data -: EKG Interpreted by Me EKG Comments: 12-lead Electrocardiogram Interpretation Note EKG was reviewed and interpreted by myself. 12-lead ECG performed at 0334 is interpreted by me as revealing normal sinus rhythm at a rate of 75 beats per minute. This is normal, QRS duration is 85 ms, IN interval is 186 ms, QTc is 438 ms.. There were no ST or T wave abnormalities to suggest myocardial ischemia or injury. R wave progression across the precordium was satisfactory. By my interpretation this EKG is non-diagnostic for acute ischemia. When compared with EKG from February 2022, no significant change. Disposition Clinical Impression: Cellulitis, Osteomyelitis of right foot, ESRD on hemodialysis Disposition: ADMITTED IP TO THIS [facility] Condition: Stable Time of Disposition: 04:35
[2022-06-13] MEDS ORDERED: ACETAMINOPHEN TAB 500 MG TAB PO STA (02:54)
[2022-06-13] MEDS ORDERED: PIPERACILLIN-TAZOBACTAM 3.375 GM in SODIUM CHLORIDE 0.9% 100 ML IVPB SCH (03:00)
[2022-06-13] MEDS: PIPERACILLIN-TAZOBACTAM 3.375 GM in SODIUM CHLORIDE 0.9% 100 ML IVPB SCH ×2 (03:17→14:08)
[2022-06-13] MEDS ORDERED: VANCOMYCIN 1,250 MG in SODIUM CHLORIDE 0.9% 250 ML IVPB ONE ×2 (03:30→08:00)
[2022-06-13 03:35] LABS: Albumin 3.8 g/dL (3.5-5.0); Calcium 8.7 mg/dL (8.4-10.2); Total Bilirubin 0.4 mg/dL (0.2-1.3); Total Protein 7.1 g/dL (6.3-8.2)
[2022-06-13 03:36] LABS: INR 1.2 (<1.2); Partial Thromboplastin Time 29.4 sec (22.0-30.0); Prothrombin Time 12.2 sec (9.0-12.0)
[2022-06-13 03:44] LABS: HCT 37.4 % (34.0-46.0); HGB 12.2 gm/dL (11.4-16.0); MCH 32.1 pg (25.0-35.0); MCHC 32.7 g/dL (31.0-37.0); MCV 97.9 fL (80.0-100.0); Mean Platelet Volume 9.6; Platelet Count 190 k/uL (150-450); RBC 3.81 m/uL (3.80-5.40); RDW 15.2 % (11.5-15.5); WBC 10.1 k/uL (3.8-10.6)
[2022-06-13 04:03] LABS: Eosinophils # (M) 0.51 k/uL (0-0.7); Lymphocytes # (M) 2.83 k/uL (1.0-4.8); Monocytes # (M) 1.11 k/uL (0-1.0); Neutrophils # (M) 5.66 k/uL (1.3-7.7); Neutrophils % (M) 56 %; Nucleated Red Blood Cells 0 /100 WBC (0-0); Total Cells Counted 100
[2022-06-13] MEDS ORDERED: NALOXONE 0.4 MG/ML 1 ML VIAL IV PRN (04:56)
[2022-06-13 06:04] LABS: Glucose,Whole Blood 118 mg/dL (70-110)
[2022-06-13] MEDS ORDERED: DEXTROSE 50% SYRINGE 50 ML IVP PRN ×2 (11:37)
[2022-06-13 11:43] LABS: Glucose,Whole Blood 109 mg/dL (70-110)
[2022-06-13] MEDS ORDERED: AMMONIUM LACTATE 12% LOTION 225 GM BTL TOPICAL PRN (11:52)
[2022-06-13] MEDS ORDERED: IPRATROPIUM BROMIDE 0.06% NASAL SPRAY (15 ML) EA NOSTRIL PRN (11:52)
[2022-06-13] MEDS: INSULIN ASPART (NovoLOG) 100 UNIT/ML VIAL SQ SCH ×3 (11:52→20:30)
[2022-06-13] MEDS ORDERED: MIDODRINE 5 MG TAB PO PRN (12:01)
[2022-06-13] MEDS: CALCIUM ACETATE 667 MG TAB PO SCH ×2 (12:20→17:26)
--- NOTE | 2022-06-13 12:47 | P.NPCON ---
History of Present Illness - Reason for Consult end stage renal disease - History of Present Illness Patient is a 71-year-old female with end-stage renal disease on hemodialysis on a Friday schedule. Patient is admitted to the hospital with increased weakness. She has a right foot wound mostly on the heel and has had increased drainage. There is concern for possible osteomyelitis. No complaints of fevers chills nausea vomiting abdominal pain or diarrhea. Complaints of chest pain or cough. Patient is due for dialysis today. Review of Systems As per HPI Past Medical History Past Medical History: Atrial Fibrillation, Cancer, COPD, Diabetes Mellitus, Eye Disorder, Hyperlipidemia, Hypertension, Renal Disease, Vascular Disorder Additional Past Medical History / Comment(s): Recent vulvar cancer with surgery, IDDM type II, neuropathy, ESRD with hemodialysis //, kidney cysts, anemia, PVD/L AKA, pt thinks DVTs R leg/L arm, past R leg wound, macular degeneration bilaterally/legally blind, chronic back pain, scoliosis, History of Any Multi-Drug Resistant Organisms: MRSA Date of last positivie culture/infection: 2015 MDRO Source:: left leg Past Surgical History: Adenoidectomy, Orthopedic Surgery, Tonsillectomy Additional Past Surgical History / Comment(s): Recent total vulvectomy at [facility] in [facility], L arm dialysis graft/multiple surgeries to repair, R arm fistula, L AKA, L chest port, surgery on L arm and R leg pt thinks to remove blood clots, vulva surgery Past Anesthesia/Blood Transfusion Reactions: No Reported Reaction Additional Past Anesthesia/Blood Transfusion Reaction / Comment(s): no problems with prior blood transfusions Past Psychological History: Anxiety Smoking Status: Current every day smoker, Light tobacco smoker Past Alcohol Use History: None Reported Past Drug Use History: None Reported - Past Family History Mother Additional Family Medical History / Comment(s): Mother of liver cirrhosis at the age of 34yrs. Father Family Medical History: Eye Disorder Additional Family Medical History / Comment(s): Macular degeneration. He at age 93 family Family Medical History: Unable to Obtain Medications and Allergies Home Medications Medication Instructions Recorded Confirmed Type ALPRAZolam [Xanax] 1 mg PO Q8H PRN 04/18/20 06/13/22 History Atorvastatin [Lipitor] 40 mg PO HS 04/18/20 06/13/22 History Calcium Acetate [PhosLo] 1,334 mg PO TID-W/MEALS 04/18/20 06/13/22 History Insulin Degludec [Tresiba 10 units SQ DAILY 04/18/20 06/13/22 History Flextouch U-100 Pen] Levocetirizine Dihydrochloride 5 mg PO BID 04/18/20 06/13/22 History Levothyroxine Sodium [Synthroid] 150 mcg PO DAILY 04/18/20 06/13/22 History Methadone HCl [Methadone Intensol] 125 mg PO DAILY 04/18/20 06/13/22 History Omeprazole 20 mg PO DAILY 04/18/20 06/13/22 History Furosemide [Lasix] 20 mg PO SUMOWEFR 05/20/20 06/13/22 History Insulin Lispro [humaLOG Kwikpen] See Protocol SQ AC-TID 05/20/20 06/13/22 History Apixaban [Eliquis] 2.5 mg PO BID 12/05/20 06/13/22 History Ammonium Lactate Lotion 1 applic TOPICAL BID PRN 08/28/21 06/13/22 History [Lac-Hydrin 12% Lotion] Lidocaine 5% Oint [Xylocaine 5% 1 applic TOPICAL BID 08/28/21 06/13/22 History Oint] Vit C/E/Zn/Coppr/Lutein/Zeaxan 2 cap PO DAILY 08/28/21 06/13/22 History [Preservision Areds 2 Softgel] Fluticasone/Umeclidin/Vilanter 1 puff INHALATION RT-DAILY 01/01/22 06/13/22 History [Trelegy Ellipta 200-62.5-25] Nephro-Ann 0.8mg 1 cap PO DAILY 01/01/22 06/13/22 History Cholecalciferol [Vitamin D3 (25 50 mcg PO DAILY 02/12/22 06/13/22 History Mcg = 1000 Iu)] Ipratropium Liberty 0.06%Nasal 2 spr EA NOSTRIL QID PRN 06/13/22 06/13/22 History [Atrovent Nasal 0.06%] Allergies Allergy/AdvReac Type Severity Reaction Status Date / Time pentazocine [From Kimmie] AdvReac Unknown Verified 06/13/22 08:46 Physical Exam Vitals: Vital Signs Temp Pulse Pulse Pulse Resp BP BP 06/13/22 10:56 97.4 F L 68 18 94/55 06/13/22 07:39 97.3 F L 67 18 98/50 06/13/22 05:59 97.8 F 81 18 94/59 06/13/22 05:27 74 15 129/88 06/13/22 02:19 98 F 80 18 124/76 Pulse Ox 06/13/22 10:56 94 L 06/13/22 07:39 92 L 06/13/22 05:59 93 L 06/13/22 05:27 97 06/13/22 02:19 98 Intake and Output 06/12/22 06/13/22 06/13/22 22:59 06:59 14:59 Intake Total 100 250 Balance 100 250 Intake: Intake, IV Titration 100 250 Amount Piperacillin-Tazobactam 3 100 .375 gm In Sodium Chloride 0.9% 100 ml @ 25 mls/hr IVPB Q12H [facility] Rx# :[id number] Vancomycin 1,250 mg In 250 Sodium Chloride 0.9% 250 ml @ 125 mls/hr IVPB ONCE ONE Rx#:[id number] Other: Voiding Method Bedside Commode Bedside Commode Weight 64 kg Patient is awake, comfortable, no acute distress alert oriented 3 Examination of the heart S1 and S2 Examination of the lungs bilateral breath sounds are heard Abdomen is soft nontender Exam showed lower extremity shows 2+ left edema right leg with also noted on the right heel. Left AKA AUTO BODY REPAIR TECHNICIAN exam grossly intact Results - Lab Results Most recent lab results Calcium 8.7 mg/dL (8.4-10.2) 06/13/22 03:05 06/13/22 03:05 06/13/22 03:05 Assessment and Plan Assessment: 1. End-stage renal disease on hemodialysis on a Friday schedule 2. Right heel ulcer rule out osteomyelitis 3. Volume overload 4. CK D mineral bone disorder Plan: Hemodialysis today Add midodrine predialysis Continue with PhosLo with meals.
--- NOTE | 2022-06-13 14:31 | P.CONS ---
History of Present Illness - Reason for Consult Consult date: 06/13/22 Osteomyelitis Requesting physician: Humberto Rascon - Chief Complaint Nonhealing wound to the right 4th toe and right heel x few weeks - History of Present Illness Patient is a 71-year-old female with a past medical history significant for diabetes mellitus COPD hypertension hyperlipidemia and stated he started hemodialysis in atrial fibrillation patient did have a previous history of diabetic foot infection requiring amputation of the right first and second toe, patient is presenting to the for evaluation of nonhealing wound to the dorsum aspect of the right 4th toe as well as to the right heel area with the patient mentioned has been going on since that is more than 3 weeks patient underwent a clear how it started but did mention there was a blister on the tip of the right third toe which has ruptured leading to this ulceration she did complain of pain to the whole right foot to be throbbing with intensity have got worse almost 10 out of 10 in severity by the time she presented to the hospital with some relief of the pain medication patient denies having any foul- smelling drainage, patient apparently did have x-rays of the right foot done on 05/23/2022 did not show any bony destructive changes patient subsequently did have MRI of the right foot completed in 06/03/2022 which did shows destructive changes of the mid and distal phalanx of the fourth toe that could be osteomyelitis, and amputation deformity of the first second and third digits patient was evaluated by her PCP was subsequently referred the patient to the ER for admission patient was started on vancomycin and Zosyn and infectious disease was consulted for further management of antibiotic therapy Review of Systems Positive point has been mentioned in the HPI rest of the systems are negative Past Medical History Past Medical History: Atrial Fibrillation, Cancer, COPD, Diabetes Mellitus, Eye Disorder, Hyperlipidemia, Hypertension, Renal Disease, Vascular Disorder Additional Past Medical History / Comment(s): Recent vulvar cancer with surgery, IDDM type II, neuropathy, ESRD with hemodialysis T//, kidney cysts, anemia, PVD/L AKA, pt thinks DVTs R leg/L arm, past R leg wound, macular degeneration bilaterally/legally blind, chronic back pain, scoliosis, History of Any Multi-Drug Resistant Organisms: MRSA Year Discovered:: 2016 MDRO Source:: left leg Past Surgical History: Adenoidectomy, Orthopedic Surgery, Tonsillectomy Additional Past Surgical History / Comment(s): Recent total vulvectomy at [facility] in [facility], L arm dialysis graft/multiple surgeries to repair, R arm fistula, L AKA, L chest port, surgery on L arm and R leg pt thinks to remove blood clots, vulva surgery Past Anesthesia/Blood Transfusion Reactions: No Reported Reaction Additional Past Anesthesia/Blood Transfusion Reaction / Comm: no problems with prior blood transfusions Past Psychological History: Anxiety Smoking Status: Current every day smoker, Light tobacco smoker Past Alcohol Use History: None Reported Past Drug Use History: None Reported - Past Family History Mother Additional Family Medical History / Comment(s): Mother of liver cirrhosis at the age of 34yrs. Father Family Medical History: Eye Disorder Additional Family Medical History / Comment(s): Macular degeneration. He at age 93 family Family Medical History: Unable to Obtain Medications and Allergies Home Medications Medication Instructions Recorded Confirmed Type ALPRAZolam [Xanax] 1 mg PO Q8H PRN 04/18/20 06/13/22 History Atorvastatin [Lipitor] 40 mg PO HS 04/18/20 06/13/22 History Calcium Acetate [PhosLo] 1,334 mg PO TID-W/MEALS 04/18/20 06/13/22 History Insulin Degludec [Tresiba 10 units SQ DAILY 04/18/20 06/13/22 History Flextouch U-100 Pen] Levocetirizine Dihydrochloride 5 mg PO BID 04/18/20 06/13/22 History Levothyroxine Sodium [Synthroid] 150 mcg PO DAILY 04/18/20 06/13/22 History Methadone HCl [Methadone Intensol] 125 mg PO DAILY 04/18/20 06/13/22 History Omeprazole 20 mg PO DAILY 04/18/20 06/13/22 History Furosemide [Lasix] 20 mg PO SUMOWEFR 05/20/20 06/13/22 History Insulin Lispro [humaLOG Kwikpen] See Protocol SQ AC-TID 05/20/20 06/13/22 History Apixaban [Eliquis] 2.5 mg PO BID 12/05/20 06/13/22 History Ammonium Lactate Lotion 1 applic TOPICAL BID PRN 08/28/21 06/13/22 History [Lac-Hydrin 12% Lotion] Lidocaine 5% Oint [Xylocaine 5% 1 applic TOPICAL BID 08/28/21 06/13/22 History Oint] Vit C/E/Zn/Coppr/Lutein/Zeaxan 2 cap PO DAILY 08/28/21 06/13/22 History [Preservision Areds 2 Softgel] Fluticasone/Umeclidin/Vilanter 1 puff INHALATION RT-DAILY 01/01/22 06/13/22 History [Trelegy Ellipta 200-62.5-25] Nephro-Ann 0.8mg 1 cap PO DAILY 01/01/22 06/13/22 History Cholecalciferol [Vitamin D3 (25 50 mcg PO DAILY 02/12/22 06/13/22 History Mcg = 1000 Iu)] Ipratropium [place] 0.06%Nasal 2 spr EA NOSTRIL QID PRN 06/13/22 06/13/22 History [Atrovent Nasal 0.06%] Allergies Allergy/AdvReac Type Severity Reaction Status Date / Time pentazocine [From Kimmie] AdvReac Unknown Verified 06/13/22 08:46 Physical Exam Vitals: Vital Signs Temp Pulse Pulse Pulse Resp BP BP 06/13/22 10:56 97.4 F L 68 18 94/55 06/13/22 07:39 97.3 F L 67 18 98/50 06/13/22 05:59 97.8 F 81 18 94/59 06/13/22 05:27 74 15 129/88 06/13/22 02:19 98 F 80 18 124/76 Pulse Ox 06/13/22 10:56 94 L 06/13/22 07:39 92 L 06/13/22 05:59 93 L 06/13/22 05:27 97 06/13/22 02:19 98 Intake and Output 06/12/22 06/13/22 06/13/22 22:59 06:59 14:59 Intake Total 100 250 Balance 100 250 Intake: Intake, IV Titration 100 250 Amount Piperacillin-Tazobactam 3 100 .375 gm In Sodium Chloride 0.9% 100 ml @ 25 mls/hr IVPB Q12H [facility] Rx# :[id number] Vancomycin 1,250 mg In 250 Sodium Chloride 0.9% 250 ml @ 125 mls/hr IVPB ONCE ONE Rx#:[id number] Other: Voiding Method Bedside Commode Bedside Commode Weight 64 kg GENERAL DESCRIPTION: Elderly female lying in bed, no distress. No tachypnea or accessory muscle of respiration use. HEENT: Shows Pallor , no scleral icterus. Oral mucous membrane is dry. No pharyngeal erythema or thrush NECK: Trachea central, no thyromegaly. LUNGS: Unlabored breathing. Clear to auscultation anteriorly. No wheeze or crackle. HEART: S1, S2, regular rate and rhythm. No loud murmur ABDOMEN: Soft, no tenderness , guarding or rigidity, no organomegaly EXTREMITIES: Right third toe tip did have a wound with some swelling and minimal redness no foul-smelling drainage right heel did have a wound but no significant surrounding swelling redness or drainage SKIN: No rash, no masses palpable. NEUROLOGICAL: The patient is awake, alert, oriented x3, mood and affect normal. Results CBC & Chem 7: 06/17/22 05:05 06/17/22 05:05 Labs: Abnormal Lab Results - Last 24 Hours (Table) 06/13/22 06/13/22 06/13/22 Range/Units 03:05 03:05 03:05 Monocytes # (Manual) 1.11 H (0-1.0) k/uL PT 12.2 H (9.0-12.0) sec INR 1.2 H (<1.2) Chloride 94 L (98-107) mmol/L Carbon Dioxide 32 H (22-30) mmol/L BUN 58 H (7-17) mg/dL Creatinine 6.81 H (0.52-1.04) mg/dL Glucose 113 H (74-99) mg/dL POC Glucose (mg/dL) (70-110) mg/dL Alkaline Phosphatase 191 H (38-126) U/L 06/13/22 Range/Units 06:02 Monocytes # (Manual) (0-1.0) k/uL PT (9.0-12.0) sec INR (<1.2) Chloride (98-107) mmol/L Carbon Dioxide (22-30) mmol/L BUN (7-17) mg/dL Creatinine (0.52-1.04) mg/dL Glucose (74-99) mg/dL POC Glucose (mg/dL) 118 H (70-110) mg/dL Alkaline Phosphatase (38-126) U/L Assessment and Plan (1) Osteomyelitis of right foot Current Visit: Yes Status: Acute Code(s): M86.9 - OSTEOMYELITIS, UNSPECIFIED SNOMED Code(s): 0703124682205112 Plan: 1patient with a nonhealing wound on the tip of her right 4th toe has been there for couple of weeks now in this patient who did have a abnormal MRI completed on 06/03/2022 suspicious for Osteomyelitis with destructive changes, failing outpatient oral antibiotic therapy 2local and blood cultures obtained which are currently pending 3patient will benefit from vascular surgical evaluation for possible debridement and deep culture versus amputation depending upon how much toe is damaged 4patient to continue vancomycin and Zosyn while waiting for the culture final We will follow on clinical condition and cultures to further adjust medication if needed Thank you for this consultation will follow this patient with you Time with Patient: Greater than 30
[2022-06-13] MEDS: IPRATROPIUM 0.5 MG/2.5 ML NEBU INHALATION SCH ×2 (16:13→20:02)
[2022-06-13 16:53] LABS: Glucose,Whole Blood 167 mg/dL (70-110)
[2022-06-13] MEDS ORDERED: METHADONE 10 MG TAB PO ONE (17:30)
[2022-06-13 20:24] LABS: Glucose,Whole Blood 179 mg/dL (70-110)
[2022-06-13] MEDS: ATORVASTATIN 40 MG TAB PO SCH (20:30)
[2022-06-13] MEDS: APIXABAN 2.5 MG TABLET PO SCH (20:30)
[2022-06-13] MEDS: LIDOCAINE 2% URO-JET JELLY 5 ML KIT MISCELLANE SCH (22:56)
--- NOTE | 2022-06-14 02:12 | HP ---
HISTORY AND PHYSICAL HISTORY OF PRESENT ILLNESS: This 71-year-old white female was admitted with right foot infection, osteomyelitis, history of diabetes mellitus, left leg amputation for similar infections, end-stage renal disease, atrial fibrillation. She has had repeated infections. Denies any foul smelling drainage. X-rays essentially destructive injuries, MRI is pending. Amputation of first, second, and third digits. She came to the ER, started on vancomycin, Zosyn. REVIEW OF SYSTEMS: A 14-point review of systems otherwise negative. PAST MEDICAL HISTORY: Atrial fibrillation, end-stage renal disease, COPD, diabetes mellitus, dyslipidemia, hypertension, left knee above-knee amputation, vascular disorder, kidney cysts, and MSSA. SURGERIES: Adenoidectomy, orthopedic surgery, tonsillectomy, and blood clot. FAMILY HISTORY: Mother with cirrhosis. Father with macular degeneration. HOME MEDICINES: Reviewed. ALLERGIES: PHYSICAL EXAMINATION: VITAL SIGNS: O2 is 93 to 98, weight is 64 kg. GENERAL: She is weak, fatigued. She is getting dialysis. CARDIOVASCULAR: S1, S2. LUNGS: Transmitted upper sounds. HEMATOLOGY: Negative for Homans. PSYCH: Fair mood and affect. HEENT: Pupils equal and reactive. NEUROLOGIC: Alert and oriented x3. OPHTHALMOLOGIC: Pupils equal, round, and reactive. LUNGS: Rales at the base. BUN is 15, creatinine is 6.81, white count is 10.1, hemoglobin is 12.2, nonhealing wound on the top to right 4th toe, suspicious for osteomyelitis with prior MRI obstructive changes, failed outpatient therapy. Blood cultures. Local cultures. IV antibiotics per Dr. Felix, infectious Disease. Vanc and Zosyn. Possibly Unasyn due to renal failure. Follow up in next 24 to 48 hours. Home IV antibiotics is preferred by the patient. MMODL / IJN: [id number] /
[2022-06-14] MEDS: PIPERACILLIN-TAZOBACTAM 3.375 GM in SODIUM CHLORIDE 0.9% 100 ML IVPB SCH ×2 (05:23→15:53)
[2022-06-14 06:04] LABS: Glucose,Whole Blood 226 mg/dL (70-110)
[2022-06-14] MEDS: INSULIN ASPART (NovoLOG) 100 UNIT/ML VIAL SQ SCH ×4 (06:27→20:48)
[2022-06-14] MEDS: PANTOPRAZOLE 40 MG TABLET PO SCH (06:27)
[2022-06-14] MEDS: LEVOTHYROXINE 75 MCG TAB PO SCH (06:27)
[2022-06-14] MEDS: CALCIUM ACETATE 667 MG TAB PO SCH ×3 (06:27→17:03)
--- NOTE | 2022-06-14 07:41 | P.GSCN ---
History of Present Illness History of present illness: 71-year-old diabetic female patient has history of blister formation right heel and also there is a dry scab on the right foot toe patient had a amputation of the right foot toes in the past patient was seen by Dr. Melgoza into the ER for further evaluation patient has history of diabetes chronic renal failure on dialysis patient also had a left above-knee amputation done + [facility] also patient had a right foot to toes removed in the past Medical history history of diabetes hypertension COPD Surgical history patient had a left above-knee amputation her right foot toes surgery in the past at [facility] On examination neck supple no bruit appreciated chest is clear few crackles the lung bases Abdomen soft nontender femoral is 1+ on the right side left above-knee stump is healed there is a scab formation noted on the right foot heel and dry scab noted on the right foot third toe there is no discharge or redness noted patient is an IV antibiotic under care of infectious disease we will continue with IV antibiotic at this point we'll follow with you patient may need debridement of the her right heel patient wanted to discuss with her daughter for any intervention we will contact her Past Medical History Past Medical History: Atrial Fibrillation, Cancer, COPD, Diabetes Mellitus, Eye Disorder, Hyperlipidemia, Hypertension, Renal Disease, Vascular Disorder Additional Past Medical History / Comment(s): Recent vulvar cancer with surgery, IDDM type II, neuropathy, ESRD with hemodialysis T//, kidney cysts, anemia, PVD/L AKA, pt thinks DVTs R leg/L arm, past R leg wound, macular degeneration bilaterally/legally blind, chronic back pain, scoliosis, History of Any Multi-Drug Resistant Organisms: MRSA Year Discovered:: 2016 MDRO Source:: left leg Past Surgical History: Adenoidectomy, Orthopedic Surgery, Tonsillectomy Additional Past Surgical History / Comment(s): Recent total vulvectomy at [facility] in [facility], L arm dialysis graft/multiple surgeries to repair, R arm fistula, L AKA, L chest port, surgery on L arm and R leg pt thinks to remove blood clots, vulva surgery Past Anesthesia/Blood Transfusion Reactions: No Reported Reaction Additional Past Anesthesia/Blood Transfusion Reaction / Comm: no problems with prior blood transfusions Past Psychological History: Anxiety Smoking Status: Current every day smoker, Light tobacco smoker Past Alcohol Use History: None Reported Past Drug Use History: None Reported - Past Family History Mother Additional Family Medical History / Comment(s): Mother of liver cirrhosis at the age of 34yrs. Father Family Medical History: Eye Disorder Additional Family Medical History / Comment(s): Macular degeneration. He at age 93 family Family Medical History: Unable to Obtain Medications and Allergies Home Medications Medication Instructions Recorded Confirmed Type ALPRAZolam [Xanax] 1 mg PO Q8H PRN 04/18/20 06/13/22 History Atorvastatin [Lipitor] 40 mg PO HS 04/18/20 06/13/22 History Calcium Acetate [PhosLo] 1,334 mg PO TID-W/MEALS 04/18/20 06/13/22 History Insulin Degludec [Tresiba 10 units SQ DAILY 04/18/20 06/13/22 History Flextouch U-100 Pen] Levocetirizine Dihydrochloride 5 mg PO BID 04/18/20 06/13/22 History Levothyroxine Sodium [Synthroid] 150 mcg PO DAILY 04/18/20 06/13/22 History Methadone HCl [Methadone Intensol] 125 mg PO DAILY 04/18/20 06/13/22 History Omeprazole 20 mg PO DAILY 04/18/20 06/13/22 History Furosemide [Lasix] 20 mg PO SUMOWEFR 05/20/20 06/13/22 History Insulin Lispro [humaLOG Kwikpen] See Protocol SQ AC-TID 05/20/20 06/13/22 History Apixaban [Eliquis] 2.5 mg PO BID 12/05/20 06/13/22 History Ammonium Lactate Lotion 1 applic TOPICAL BID PRN 08/28/21 06/13/22 History [Lac-Hydrin 12% Lotion] Lidocaine 5% Oint [Xylocaine 5% 1 applic TOPICAL BID 08/28/21 06/13/22 History Oint] Vit C/E/Zn/Coppr/Lutein/Zeaxan 2 cap PO DAILY 08/28/21 06/13/22 History [Preservision Areds 2 Softgel] Fluticasone/Umeclidin/Vilanter 1 puff INHALATION RT-DAILY 01/01/22 06/13/22 History [Trelegy Ellipta 200-62.5-25] Nephro-Ann 0.8mg 1 cap PO DAILY 01/01/22 06/13/22 History Cholecalciferol [Vitamin D3 (25 50 mcg PO DAILY 02/12/22 06/13/22 History Mcg = 1000 Iu)] Ipratropium [place] 0.06%Nasal 2 spr EA NOSTRIL QID PRN 06/13/22 06/13/22 History [Atrovent Nasal 0.06%] Allergies Allergy/AdvReac Type Severity Reaction Status Date / Time pentazocine [From Kimmie] AdvReac Unknown Verified 06/13/22 08:46 Surgical - Exam Vital Signs Temp Pulse Resp BP Pulse Ox 98 F 80 18 124/76 98 06/13/22 02:19 06/13/22 02:19 06/13/22 02:19 06/13/22 02:19 06/13/22 02:19 Results - Labs 06/13/22 03:05 06/13/22 03:05 Abnormal Lab Results - Last 24 Hours (Table) 06/13/22 06/13/22 06/13/22 Range/Units 03:05 16:50 20:23 POC Glucose (mg/dL) 167 H 179 H (70-110) mg/dL Hemoglobin A1c 6.3 H (0.0-6.0) % 06/14/22 Range/Units 06:03 POC Glucose (mg/dL) 226 H (70-110) mg/dL Hemoglobin A1c (0.0-6.0) % Microbiology - Last 24 Hours (Table) 06/13/22 03:20 Blood Culture - Preliminary Blood No Growth after 24 hours 06/13/22 03:05 Blood Culture - Preliminary Blood No Growth after 24 hours 06/13/22 03:05 Wound Culture - Preliminary Foot - Right 06/13/22 03:05 Anaerobic Culture - Preliminary Foot - Right Diabetes panel 06/13/22 Range/Units 03:05 Hemoglobin A1c 6.3 H (0.0-6.0) %
[2022-06-14] MEDS: IPRATROPIUM 0.5 MG/2.5 ML NEBU INHALATION SCH ×4 (08:50→20:35)
[2022-06-14] MEDS: SYMBICORT 80-4.5 MCG INHALER INHALATION SCH ×2 (08:51→20:35)
[2022-06-14 08:54] LABS: Basophils # (A) 0.07 X 10*3/uL (0.00-0.10); Basophils % (A) 0.6 %; Eosinophils # (A) 0.02 X 10*3/uL (0.04-0.35); Eosinophils % (A) 0.2 %; HGB 11.7 g/dL (12.0-15.0); Immature Grans, Automated 0.5 %; Lymphocytes # (A) 0.92 X 10*3/uL (0.90-5.00); Lymphocytes % (A) 7.7 %; MCH 31.5 pg (27.0-32.0); MCHC 30.8 g/dL (32.0-37.0); MCV 102.4 fL (80.0-97.0); Mean Platelet Volume 12.3 fL (9.5-12.2); Monocytes # (A) 0.84 X 10*3/uL (0.20-1.00); NRBC Per 100 WBC 0 /100 WBCS (0.0-0.0); Neutrophils # (A) 10.05 X 10*3/uL (1.80-7.70); Platelet Count 157 X 10*3/uL (140-440); RBC 3.71 X 10*6/uL (4.10-5.20); RDW 16.2 % (11.5-14.5); WBC 11.96 X 10*3/uL (4.50-10.00)
[2022-06-14] MEDS ORDERED: VANCOMYCIN 1,250 MG in SODIUM CHLORIDE 0.9% 250 ML IVPB ONE (09:00)
[2022-06-14 09:04] LABS: African American GFR (CKD) 11.4 (60.0-200.0); Anion Gap 16.5 mmol/L (10.00-18.00); BUN/Creat Ratio 5.81 Ratio (12.00-20.00); Calcium 8.8 mg/dL (8.7-10.3); Carbon Dioxide 25.5 mmol/L (20.0-27.5); Non-African American GFR(CKD) 9.8 (60.0-200.0); Potassium 5.3 mmol/L (3.5-5.5)
[2022-06-14] MEDS: ALPRAZolam 1 MG TAB PO PRN (09:15)
[2022-06-14] MEDS: METHADONE 10 MG TAB PO SCH (10:24)
[2022-06-14] MEDS: LORATADINE 10 MG TAB PO SCH (10:29)
[2022-06-14] MEDS: APIXABAN 2.5 MG TABLET PO SCH ×2 (10:30→20:47)
[2022-06-14] MEDS: VIT A,C & E-LUTEIN-MINERALS 1 EACH TAB PO SCH ×2 (10:30→10:38)
[2022-06-14] MEDS: CHOLECALCIFEROL 25 MCG (1000 IU) TABLET PO SCH (10:30)
[2022-06-14] MEDS: FOLIC ACID-VIT B COMPLEX-VIT C 1 CAP PO SCH (10:33)
[2022-06-14] MEDS: LIDOCAINE 2% URO-JET JELLY 5 ML KIT MISCELLANE SCH ×2 (10:47→20:49)
[2022-06-14 11:16] VITALS: BMI 23.4
[2022-06-14 11:39] LABS: Glucose,Whole Blood 124 mg/dL (70-110)
--- NOTE | 2022-06-14 14:45 | P.PN ---
Subjective Progress Note Date: 06/14/22 Principal diagnosis: Right fourth toe Osteomyelitis Patient is a 71-year-old female with a past medical history significant for diabetes mellitus COPD hypertension hyperlipidemia and stated he started hemodialysis in atrial fibrillation patient did have a previous history of diabetic foot infection requiring amputation of the right first and second toe, patient is presenting to the for evaluation of nonhealing wound to the dorsum aspect of the right 4th toe as well as to the right heel area, with outpatient MRI suspicious for right fourth toe osteomyelitis. On today's evaluation that is 06/14/2022, the patient denies having any fever or any chills no chest pain shortness of breath or cough no abdominal pain denies any worsening pain to the right fourth toe or any drainage Objective - Vital Signs Vital signs: Vital Signs Temp 98.6 F 06/14/22 08:00 Pulse 93 06/14/22 09:02 Resp 17 06/14/22 08:00 BP 110/61 06/14/22 08:00 Pulse Ox 92 L 06/14/22 08:53 FiO2 Intake & Output 06/13/22 06/14/22 06/14/22 18:59 06:59 18:59 Intake Total 250 Balance 250 Weight 64 kg Intake: Intake, IV Titration 250 Amount Vancomycin 1,250 mg In 250 Sodium Chloride 0.9% 250 ml @ 125 mls/hr IVPB ONCE ONE Rx#:[id number] Other: Voiding Method Bedside Commode Bedside Commode # Voids 3 - Exam GENERAL DESCRIPTION: An elderly female lying in bed in no distress RESPIRATORY SYSTEM: Unlabored breathing , decreased breath sounds at bases HEART: S1 S2 regular rate and rhythm , ABDOMEN: Soft , no tenderness EXTREMITIES: Right fourth toe dorsal aspect with a wound swelling redness no drainage - Labs CBC & Chem 7: 06/14/22 03:55 06/14/22 03:55 Labs: Abnormal Lab Results - Last 24 Hours (Table) 06/13/22 06/13/22 06/13/22 Range/Units 03:05 16:50 20: WBC (4.50-10.00) X 10*3/uL RBC (4.10-5.20) X 10*6/uL Hgb (12.0-15.0) g/dL MCV (80.0-97.0) fL MCHC (32.0-37.0) g/dL RDW (11.5-14.5) % MPV (9.5-12.2) fL Immature Gran # (0.00-0.04) X 10*3/uL Neutrophils # (1.80-7.70) X 10*3/uL Eosinophils # (0.04-0.35) X 10*3/uL Creatinine (0.6-1.5) mg/dL Est GFR (CKD-EPI)AfAm (60.0-200.0) Est GFR (CKD-EPI)NonAf (60.0-200.0) BUN/Creatinine Ratio (12.00-20.00) Ratio Glucose (70-110) mg/dL POC Glucose (mg/dL) 167 H 179 H (70-110) mg/dL Hemoglobin A1c 6.3 H (0.0-6.0) % 06/14/22 06/14/22 06/14/22 Range/Units 03:55 03:55 06:03 WBC 11.96 H (4.50-10.00) X 10*3/uL RBC 3.71 L (4.10-5.20) X 10*6/uL Hgb 11.7 L (12.0-15.0) g/dL MCV 102.4 H (80.0-97.0) fL MCHC 30.8 L (32.0-37.0) g/dL RDW 16.2 H (11.5-14.5) % MPV 12.3 H (9.5-12.2) fL Immature Gran # 0.06 H (0.00-0.04) X 10*3/uL Neutrophils # 10.05 H (1.80-7.70) X 10*3/uL Eosinophils # 0.02 L (0.04-0.35) X 10*3/uL Creatinine 4.3 H (0.6-1.5) mg/dL Est GFR (CKD-EPI)AfAm 11.4 L (60.0-200.0) Est GFR (CKD-EPI)NonAf 9.8 L (60.0-200.0) BUN/Creatinine Ratio 5.81 L (12.00-20.00) Ratio Glucose 211 H (70-110) mg/dL POC Glucose (mg/dL) 226 H (70-110) mg/dL Hemoglobin A1c (0.0-6.0) % 06/14/22 Range/Units 11:37 WBC (4.50-10.00) X 10*3/uL RBC (4.10-5.20) X 10*6/uL Hgb (12.0-15.0) g/dL MCV (80.0-97.0) fL MCHC (32.0-37.0) g/dL RDW (11.5-14.5) % MPV (9.5-12.2) fL Immature Gran # (0.00-0.04) X 10*3/uL Neutrophils # (1.80-7.70) X 10*3/uL Eosinophils # (0.04-0.35) X 10*3/uL Creatinine (0.6-1.5) mg/dL Est GFR (CKD-EPI)AfAm (60.0-200.0) Est GFR (CKD-EPI)NonAf (60.0-200.0) BUN/Creatinine Ratio (12.00-20.00) Ratio Glucose (70-110) mg/dL POC Glucose (mg/dL) 124 H (70-110) mg/dL Hemoglobin A1c (0.0-6.0) % Microbiology - Last 24 Hours (Table) 06/13/22 03:20 Blood Culture - Preliminary Blood No Growth after 24 hours 06/13/22 03:05 Blood Culture - Preliminary Blood No Growth after 24 hours 06/13/22 03:05 Wound Culture - Preliminary Foot - Right 06/13/22 03:05 Anaerobic Culture - Preliminary Foot - Right Assessment and Plan (1) Osteomyelitis of right foot Current Visit: Yes Status: Acute Code(s): M86.9 - OSTEOMYELITIS, UNSPECIFIED SNOMED Code(s): 1935897785796166 Plan: 1patient with a nonhealing wound on the tip of her right 4th toe has been there for couple of weeks now in this patient who did have a abnormal MRI completed on 06/03/2019 suspicious for Osteomyelitis with destructive changes, failing outpatient oral antibiotic therapy 2local and blood cultures obtained which are currently pending 3patient has been evaluated by vascular surgical currently recommended no surgical intervention 4patient to continue vancomycin and Zosyn while waiting for the culture final to determine her discharge and medics Time with Patient: Less than 30
[2022-06-14 16:37] LABS: Glucose,Whole Blood 234 mg/dL (70-110)
--- NOTE | 2022-06-14 18:09 | P.PN ---
Subjective Patient is seen for f/u for ESRD on TTS schedule. Feeling slightly better. Maintained on antibiotics for Right heel ucer. Objective - Vital Signs Vital signs: Vital Signs Temp 98.8 F 06/14/22 13:02 Pulse 80 06/14/22 13:02 Resp 18 06/14/22 13:02 BP 93/54 06/14/22 13:02 Pulse Ox 91 L 06/14/22 13:02 FiO2 Intake & Output 06/13/22 06/14/22 06/14/22 18:59 06:59 18:59 Intake Total 250 Balance 250 Weight 64 kg Intake: Intake, IV Titration 250 Amount Vancomycin 1,250 mg In 250 Sodium Chloride 0.9% 250 ml @ 125 mls/hr IVPB ONCE ONE Rx#:[id number] Other: Voiding Method Bedside Commode Bedside Commode # Voids 3 0 - Exam Pt is awake, comfortable, no acute distress Alert and oriented x3 Lungs are clear CVS S1 and S2 Abdomen is soft, non tender. Extremities: R foot is wrapped. Left AKA - Labs CBC & Chem 7: 06/14/22 03:55 06/14/22 03:55 Labs: Abnormal Lab Results - Last 24 Hours (Table) 06/13/22 06/13/22 06/14/22 Range/Units 03:05 20:23 03:55 WBC 11.96 H (4.50-10.00) X 10*3/uL RBC 3.71 L (4.10-5.20) X 10*6/uL Hgb 11.7 L (12.0-15.0) g/dL MCV 102.4 H (80.0-97.0) fL MCHC 30.8 L (32.0-37.0) g/dL RDW 16.2 H (11.5-14.5) % MPV 12.3 H (9.5-12.2) fL Immature Gran # 0.06 H (0.00-0.04) X 10*3/uL Neutrophils # 10.05 H (1.80-7.70) X 10*3/uL Eosinophils # 0.02 L (0.04-0.35) X 10*3/uL Creatinine (0.6-1.5) mg/dL Est GFR (CKD-EPI)AfAm (60.0-200.0) Est GFR (CKD-EPI)NonAf (60.0-200.0) BUN/Creatinine Ratio (12.00-20.00) Ratio Glucose (70-110) mg/dL POC Glucose (mg/dL) 179 H (70-110) mg/dL Hemoglobin A1c 6.3 H (0.0-6.0) % 06/14/22 06/14/22 06/14/22 Range/Units 03:55 06:03 11:37 WBC (4.50-10.00) X 10*3/uL RBC (4.10-5.20) X 10*6/uL Hgb (12.0-15.0) g/dL MCV (80.0-97.0) fL MCHC (32.0-37.0) g/dL RDW (11.5-14.5) % MPV (9.5-12.2) fL Immature Gran # (0.00-0.04) X 10*3/uL Neutrophils # (1.80-7.70) X 10*3/uL Eosinophils # (0.04-0.35) X 10*3/uL Creatinine 4.3 H (0.6-1.5) mg/dL Est GFR (CKD-EPI)AfAm 11.4 L (60.0-200.0) Est GFR (CKD-EPI)NonAf 9.8 L (60.0-200.0) BUN/Creatinine Ratio 5.81 L (12.00-20.00) Ratio Glucose 211 H (70-110) mg/dL POC Glucose (mg/dL) 226 H 124 H (70-110) mg/dL Hemoglobin A1c (0.0-6.0) % 06/14/22 Range/Units 16:35 WBC (4.50-10.00) X 10*3/uL RBC (4.10-5.20) X 10*6/uL Hgb (12.0-15.0) g/dL MCV (80.0-97.0) fL MCHC (32.0-37.0) g/dL RDW (11.5-14.5) % MPV (9.5-12.2) fL Immature Gran # (0.00-0.04) X 10*3/uL Neutrophils # (1.80-7.70) X 10*3/uL Eosinophils # (0.04-0.35) X 10*3/uL Creatinine (0.6-1.5) mg/dL Est GFR (CKD-EPI)AfAm (60.0-200.0) Est GFR (CKD-EPI)NonAf (60.0-200.0) BUN/Creatinine Ratio (12.00-20.00) Ratio Glucose (70-110) mg/dL POC Glucose (mg/dL) 234 H (70-110) mg/dL Hemoglobin A1c (0.0-6.0) % Microbiology - Last 24 Hours (Table) 06/13/22 03:20 Blood Culture - Preliminary Blood No Growth after 24 hours 06/13/22 03:05 Blood Culture - Preliminary Blood No Growth after 24 hours 06/13/22 03:05 Wound Culture - Preliminary Foot - Right 06/13/22 03:05 Anaerobic Culture - Preliminary Foot - Right Assessment and Plan Assessment: 1. End-stage renal disease on hemodialysis on a Friday schedule 2. Right heel ulcer rule out osteomyelitis 3. Volume overload 4. CK D mineral bone disorder Plan: Hemodialysis in am Contnue with midodrine with HD.
[2022-06-14 20:37] LABS: Glucose,Whole Blood 252 mg/dL (70-110)
[2022-06-14] MEDS: ATORVASTATIN 40 MG TAB PO SCH (20:48)
[2022-06-15] MEDS: ALPRAZolam 1 MG TAB PO PRN (02:35)
[2022-06-15 06:01] LABS: Glucose,Whole Blood 112 mg/dL (70-110)
[2022-06-15] MEDS: INSULIN ASPART (NovoLOG) 100 UNIT/ML VIAL SQ SCH ×4 (06:05→21:26)
[2022-06-15] MEDS: CALCIUM ACETATE 667 MG TAB PO SCH ×3 (06:07→17:30)
[2022-06-15] MEDS: PANTOPRAZOLE 40 MG TABLET PO SCH (06:07)
[2022-06-15] MEDS: LEVOTHYROXINE 75 MCG TAB PO SCH (06:08)
[2022-06-15 06:31] LABS: ALT 18 U/L (4-34); AST 20 U/L (14-36); African American GFR (CKD) 7 (>60 ml/min/1.73 sqM); Albumin 3.4 g/dL (3.5-5.0); Albumin/Globulin Ratio 1.1; Alkaline Phosphatase 139 U/L (38-126); Anion Gap 11 mmol/L; Blood Urea Nitrogen 47 mg/dL (7-17); Calcium 8.7 mg/dL (8.4-10.2); Carbon Dioxide 25 mmol/L (22-30); Chloride 100 mmol/L (98-107); Glucose 114 mg/dL (74-99); Non-African American GFR(CKD) 6 (>60 ml/min/1.73 sqM); Potassium 5.4 mmol/L (3.5-5.1); Sodium 136 mmol/L (137-145); Total Bilirubin 0.5 mg/dL (0.2-1.3); Total Protein 6.4 g/dL (6.3-8.2)
[2022-06-15] MEDS ORDERED: MIDODRINE 5 MG TAB PO PRN (07:30)
[2022-06-15] MEDS: PIPERACILLIN-TAZOBACTAM 3.375 GM in SODIUM CHLORIDE 0.9% 100 ML IVPB SCH ×2 (07:41→15:02)
[2022-06-15] MEDS: CHOLECALCIFEROL 25 MCG (1000 IU) TABLET PO SCH (08:22)
[2022-06-15] MEDS: SYMBICORT 80-4.5 MCG INHALER INHALATION SCH ×2 (08:22→20:15)
[2022-06-15] MEDS: APIXABAN 2.5 MG TABLET PO SCH ×2 (08:22→21:26)
[2022-06-15] MEDS: METHADONE 10 MG TAB PO SCH (08:22)
[2022-06-15] MEDS: FOLIC ACID-VIT B COMPLEX-VIT C 1 CAP PO SCH (08:22)
[2022-06-15] MEDS: LORATADINE 10 MG TAB PO SCH (08:22)
[2022-06-15] MEDS: IPRATROPIUM 0.5 MG/2.5 ML NEBU INHALATION SCH ×5 (08:22→20:15)
[2022-06-15] MEDS: VIT A,C & E-LUTEIN-MINERALS 1 EACH TAB PO SCH (08:22)
[2022-06-15 09:19] LABS: Basophils # (A) 0.05 X 10*3/uL (0.00-0.10); Basophils % (A) 0.4 %; Eosinophils # (A) 1.01 X 10*3/uL (0.04-0.35); Eosinophils % (A) 8.3 %; HCT 36.2 % (37.2-46.3); Immature Grans, Automated 0.3 %; Lymphocytes # (A) 0.98 X 10*3/uL (0.90-5.00); MCH 31.3 pg (27.0-32.0); MCHC 30.4 g/dL (32.0-37.0); MCV 102.8 fL (80.0-97.0); Mean Platelet Volume 12.2 fL (9.5-12.2); Monocytes # (A) 0.86 X 10*3/uL (0.20-1.00); Monocytes % (A) 7.1 %; NRBC Per 100 WBC 0 /100 WBCS (0.0-0.0); Neutrophils # (A) 9.25 X 10*3/uL (1.80-7.70); Neutrophils % (A) 75.9 %; Platelet Count 131 X 10*3/uL (140-440); RBC 3.52 X 10*6/uL (4.10-5.20); RDW 16.1 % (11.5-14.5); WBC 12.19 X 10*3/uL (4.50-10.00)
[2022-06-15 09:23] LABS: Vancomycin,Random 25.2 ug/mL
--- NOTE | 2022-06-15 10:42 | P.PN ---
Subjective Patient is seen for f/u for ESRD on TTS schedule. Feeling slightly better. Maintained on antibiotics for Right heel ucer. Seen on hemodialysis. Tolerating treatment well. Blood pressure is low patient has just received midodrine. Objective - Vital Signs Vital signs: Vital Signs Temp 98.4 F 06/15/22 06:55 Pulse 92 06/15/22 08:36 Resp 17 06/15/22 08:00 BP 92/52 06/15/22 06:55 Pulse Ox 89 L 06/15/22 08:25 FiO2 Intake & Output 06/14/22 06/15/22 06/15/22 18:59 06:59 18:59 Intake Total 600 240 Output Total 0 Balance 600 0 240 Weight 64 kg Intake: Oral 600 240 Output: Urine 0 Other: Voiding Method Bedside Commode Bedside Commode # Voids 0 - Exam Pt is awake, comfortable, no acute distress Alert and oriented x3 Lungs are clear CVS S1 and S2 Abdomen is soft, non tender. Extremities: R foot is wrapped. Left AKA - Labs CBC & Chem 7: 06/15/22 05:33 06/15/22 05:33 Labs: Abnormal Lab Results - Last 24 Hours (Table) 06/14/22 06/14/22 06/14/22 Range/Units 11:37 16:35 20:36 WBC (4.50-10.00) X 10*3/uL RBC (4.10-5.20) X 10*6/uL Hgb (12.0-15.0) g/dL Hct (37.2-46.3) % MCV (80.0-97.0) fL MCHC (32.0-37.0) g/dL RDW (11.5-14.5) % Plt Count (140-440) X 10*3/uL Neutrophils # (1.80-7.70) X 10*3/uL Eosinophils # (0.04-0.35) X 10*3/uL Sodium (137-145) mmol/L Potassium (3.5-5.1) mmol/L BUN (7-17) mg/dL Creatinine (0.52-1.04) mg/dL Glucose (74-99) mg/dL POC Glucose (mg/dL) 124 H 234 H 252 H (70-110) mg/dL Alkaline Phosphatase (38-126) U/L Albumin (3.5-5.0) g/dL 06/15/22 06/15/22 06/15/22 Range/Units 05:33 05:33 05:59 WBC 12.19 H (4.50-10.00) X 10*3/uL RBC 3.52 L (4.10-5.20) X 10*6/uL Hgb 11.0 L (12.0-15.0) g/dL Hct 36.2 L (37.2-46.3) % MCV 102.8 H (80.0-97.0) fL MCHC 30.4 L (32.0-37.0) g/dL RDW 16.1 H (11.5-14.5) % Plt Count 131 L (140-440) X 10*3/uL Neutrophils # 9.25 H (1.80-7.70) X 10*3/uL Eosinophils # 1.01 H (0.04-0.35) X 10*3/uL Sodium 136 L (137-145) mmol/L Potassium 5.4 H (3.5-5.1) mmol/L BUN 47 H (7-17) mg/dL Creatinine 6.31 H (0.52-1.04) mg/dL Glucose 114 H (74-99) mg/dL POC Glucose (mg/dL) 112 H (70-110) mg/dL Alkaline Phosphatase 139 H (38-126) U/L Albumin 3.4 L (3.5-5.0) g/dL Microbiology - Last 24 Hours (Table) 06/13/22 03:20 Blood Culture - Preliminary Blood No Growth after 48 hours 06/13/22 03:05 Blood Culture - Preliminary Blood No Growth after 48 hours Assessment and Plan Assessment: 1. End-stage renal disease on hemodialysis on a Friday schedule 2. Right heel ulcer rule out osteomyelitis 3. Volume overload 4. CK D mineral bone disorder Plan: Hemodialysis today with goal UF 1-2 L as tolerated Contnue with midodrine with HD.
[2022-06-15 11:38] LABS: Glucose,Whole Blood 153 mg/dL (70-110)
--- NOTE | 2022-06-15 12:15 | P.PN ---
Subjective Progress Note Date: 06/15/22 Principal diagnosis: Right fourth toe Osteomyelitis Patient is a 71-year-old female with a past medical history significant for diabetes mellitus COPD hypertension hyperlipidemia and stated he started hemodialysis in atrial fibrillation patient did have a previous history of diabetic foot infection requiring amputation of the right first and second toe, patient is presenting to the for evaluation of nonhealing wound to the dorsum aspect of the right 4th toe as well as to the right heel area, with outpatient MRI suspicious for right fourth toe osteomyelitis. On today's evaluation that is 06/15/2022, the patient remains to be afebrile, the patient denies chest pain shortness of breath or cough no abdominal pain , the patient pain to the right fourth toe has decreased in intensity and denies any drainage Objective - Vital Signs Vital signs: Vital Signs Temp 98.4 F 06/15/22 06:55 Pulse 92 06/15/22 08:36 Resp 17 06/15/22 08:00 BP 92/52 06/15/22 06:55 Pulse Ox 89 L 06/15/22 08:25 FiO2 Intake & Output 06/14/22 06/15/22 06/15/22 18:59 06:59 18:59 Intake Total 600 240 Output Total 0 Balance 600 0 240 Weight 64 kg Intake: Oral 600 240 Output: Urine 0 Other: Voiding Method Bedside Commode Bedside Commode # Voids 0 - Exam GENERAL DESCRIPTION: An elderly female lying in bed in no distress RESPIRATORY SYSTEM: Unlabored breathing , decreased breath sounds at bases HEART: S1 S2 regular rate and rhythm , ABDOMEN: Soft , no tenderness EXTREMITIES: Right fourth toe dorsal aspect with a wound swelling redness no drainage - Labs CBC & Chem 7: 06/15/22 05:33 06/15/22 05:33 Labs: Abnormal Lab Results - Last 24 Hours (Table) 06/14/22 06/14/22 06/14/22 Range/Units 11:37 16:35 20:36 WBC (4.50-10.00) X 10*3/uL RBC (4.10-5.20) X 10*6/uL Hgb (12.0-15.0) g/dL Hct (37.2-46.3) % MCV (80.0-97.0) fL MCHC (32.0-37.0) g/dL RDW (11.5-14.5) % Plt Count (140-440) X 10*3/uL Neutrophils # (1.80-7.70) X 10*3/uL Eosinophils # (0.04-0.35) X 10*3/uL Sodium (137-145) mmol/L Potassium (3.5-5.1) mmol/L BUN (7-17) mg/dL Creatinine (0.52-1.04) mg/dL Glucose (74-99) mg/dL POC Glucose (mg/dL) 124 H 234 H 252 H (70-110) mg/dL Alkaline Phosphatase (38-126) U/L Albumin (3.5-5.0) g/dL 06/15/22 06/15/22 06/15/22 Range/Units 05:33 05:33 05:59 WBC 12.19 H (4.50-10.00) X 10*3/uL RBC 3.52 L (4.10-5.20) X 10*6/uL Hgb 11.0 L (12.0-15.0) g/dL Hct 36.2 L (37.2-46.3) % MCV 102.8 H (80.0-97.0) fL MCHC 30.4 L (32.0-37.0) g/dL RDW 16.1 H (11.5-14.5) % Plt Count 131 L (140-440) X 10*3/uL Neutrophils # 9.25 H (1.80-7.70) X 10*3/uL Eosinophils # 1.01 H (0.04-0.35) X 10*3/uL Sodium 136 L (137-145) mmol/L Potassium 5.4 H (3.5-5.1) mmol/L BUN 47 H (7-17) mg/dL Creatinine 6.31 H (0.52-1.04) mg/dL Glucose 114 H (74-99) mg/dL POC Glucose (mg/dL) 112 H (70-110) mg/dL Alkaline Phosphatase 139 H (38-126) U/L Albumin 3.4 L (3.5-5.0) g/dL Microbiology - Last 24 Hours (Table) 06/13/22 03:20 Blood Culture - Preliminary Blood No Growth after 48 hours 06/13/22 03:05 Blood Culture - Preliminary Blood No Growth after 48 hours Assessment and Plan (1) Osteomyelitis of right foot Current Visit: Yes Status: Acute Code(s): M86.9 - OSTEOMYELITIS, UNSPECIFIED SNOMED Code(s): 3797555446886589 Plan: 1patient with a nonhealing wound on the tip of her right 4th toe has been there for couple of weeks now in this patient who did have a abnormal MRI completed on 06/03/2019 suspicious for Osteomyelitis with destructive changes, failing outpatient oral antibiotic therapy 2blood culture had been negative so far local culture are currently pending 3patient has been evaluated by vascular surgical currently recommended no surgical intervention 4patient to continue vancomycin and Zosyn while waiting for the culture and local wound care to continue with Aquacel silver dressing Time with Patient: Less than 30
[2022-06-15] MEDS: LIDOCAINE 2% URO-JET JELLY 5 ML KIT MISCELLANE SCH ×2 (12:22→21:28)
[2022-06-15 17:11] LABS: Glucose,Whole Blood 182 mg/dL (70-110)
--- NOTE | 2022-06-15 18:48 | CT ---
EXAMINATION TYPE: CT chest wo con DATE OF EXAM: 06/15/2022 COMPARISON: PET/CT scan 11/16/2021 HISTORY: aneurysm CT DLP: 321 mGycm Automated exposure control for dose reduction was used. Images obtained from the thoracic inlet to the diaphragm with no contrast. There is pulmonary hyperinflation and mild flattening of the diaphragm. There is mild emphysematous c hanges in the lung dodge bilaterally. No mediastinal adenopathy. There are no hilar masses. Heart si ze is normal. No pericardial effusion. There is some mild linear infiltrate and atelectasis at the po sterior lung bases. No pleural effusion. Thoracic spine is intact. There is aneurysm of the ascending aorta that measures up to 4.4 cm. There are multiple renal cortical cysts. IMPRESSION: Mild infiltrate and atelectasis at the posterior lung bases. This appears mostly new compared to the old exam. . Emphysema without much change. No suspicious pulmonary mass. Mild aneurysm of the ascending aorta lydia suring 4.4 cm. Unchanged.
[2022-06-15 20:06] LABS: Glucose,Whole Blood 212 mg/dL (70-110)
[2022-06-15] MEDS: ATORVASTATIN 40 MG TAB PO SCH (21:26)
--- NOTE | 2022-06-15 23:17 | PN ---
PROGRESS NOTE DATE OF SERVICE: 06/14/2022 White female is on dialysis. Remains on broad-spectrum antibiotics for foot infection no debridement at this time. History of COPD, hypertension, diabetes mellitus, diabetic foot infections status post amputation of right first and second toe. She has had a left leg amputated. Temperature 98.6, pulse 93, respiratory rate 16 to 18, blood pressure 110/61, O2 is 92%. Cardiovascular, S1, S2. Abdomen is soft. Extremities, no swelling or drainage. She is alert, oriented, in no acute distress. White count , BUN is 25, creatinine 4.3. ASSESSMENT: Osteomyelitis of the right foot, nonhealing wound to the right fourth toe couple of weeks. Continue broad-spectrum antibiotics. Dialysis will be ordered. Possibly do an arterial Doppler of the leg and an echo for shortness of breath and possibly some diastolic heart failure. Prognosis guarded. Continue current treatment. MMODL / IJN: [id number] /
[2022-06-16] MEDS: ALPRAZolam 1 MG TAB PO PRN ×2 (01:08→21:47)
[2022-06-16] MEDS: PIPERACILLIN-TAZOBACTAM 3.375 GM in SODIUM CHLORIDE 0.9% 100 ML IVPB SCH ×2 (01:09→15:16)
[2022-06-16] MEDS: INSULIN ASPART (NovoLOG) 100 UNIT/ML VIAL SQ SCH ×4 (06:03→21:47)
[2022-06-16] MEDS: CALCIUM ACETATE 667 MG TAB PO SCH ×4 (06:07→17:17)
[2022-06-16] MEDS: PANTOPRAZOLE 40 MG TABLET PO SCH (06:07)
[2022-06-16] MEDS: LEVOTHYROXINE 75 MCG TAB PO SCH (06:07)
[2022-06-16 06:08] LABS: Glucose,Whole Blood 74 mg/dL (70-110)
[2022-06-16 06:51] LABS: C Reactive Protein 4.1 mg/dL (<1.0)
[2022-06-16] MEDS: IPRATROPIUM 0.5 MG/2.5 ML NEBU INHALATION SCH ×4 (07:46→21:31)
[2022-06-16] MEDS: SYMBICORT 80-4.5 MCG INHALER INHALATION SCH ×2 (07:46→21:31)
[2022-06-16] MEDS: LORATADINE 10 MG TAB PO SCH (07:57)
[2022-06-16] MEDS: FOLIC ACID-VIT B COMPLEX-VIT C 1 CAP PO SCH (07:57)
[2022-06-16] MEDS: APIXABAN 2.5 MG TABLET PO SCH ×2 (07:57→21:47)
[2022-06-16] MEDS: CHOLECALCIFEROL 25 MCG (1000 IU) TABLET PO SCH (07:57)
[2022-06-16] MEDS: VIT A,C & E-LUTEIN-MINERALS 1 EACH TAB PO SCH (07:57)
[2022-06-16] MEDS: LIDOCAINE 2% URO-JET JELLY 5 ML KIT MISCELLANE SCH ×2 (07:58→21:53)
[2022-06-16] MEDS ORDERED: VANCOMYCIN 1,250 MG in SODIUM CHLORIDE 0.9% 250 ML IVPB ONE (08:00)
[2022-06-16] MEDS: METHADONE 10 MG TAB PO SCH (09:56)
--- NOTE | 2022-06-16 10:26 | P.PN ---
Subjective Patient is seen for f/u for ESRD on TTS schedule. Feeling slightly better. Maintained on antibiotics for Right heel ucer. Status post hemodialysis yesterday Objective - Vital Signs Vital signs: Vital Signs Temp 97.3 F L 06/16/22 07:55 Pulse 76 06/16/22 07:58 Resp 17 06/16/22 07:55 BP 87/49 06/16/22 07:55 Pulse Ox 100 06/16/22 07:55 FiO2 Intake & Output 06/15/22 06/16/22 06/16/22 18:59 06:59 18:59 Intake Total 358 Balance 358 Intake: Oral 358 Other: Voiding Method Bedside Commode Bedside Commode # Voids 1 1 - Exam Pt is awake, comfortable, no acute distress Alert and oriented x3 Lungs are clear CVS S1 and S2 Abdomen is soft, non tender. Extremities: R foot is wrapped. Left AKA - Labs CBC & Chem 7: 06/15/22 05:33 06/16/22 06:05 Labs: Abnormal Lab Results - Last 24 Hours (Table) 06/15/22 06/15/22 06/15/22 Range/Units 11:36 17:10 20:05 ESR (0-20) mm/hr Creatinine (0.52-1.04) mg/dL POC Glucose (mg/dL) 153 H 182 H 212 H (70-110) mg/dL C-Reactive Protein (<1.0) mg/dL 06/16/22 06/16/22 Range/Units 06:05 06:05 ESR 61 H (0-20) mm/hr Creatinine 4.14 H (0.52-1.04) mg/dL POC Glucose (mg/dL) (70-110) mg/dL C-Reactive Protein 4.1 H (<1.0) mg/dL Microbiology - Last 24 Hours (Table) 06/13/22 03:20 Blood Culture - Preliminary Blood No Growth after 72 hours 06/13/22 03:05 Blood Culture - Preliminary Blood No Growth after 72 hours 06/13/22 03:05 Gram Stain - Final Foot - Right Wound Culture - Final Staphylococcus epidermidis Assessment and Plan Assessment: 1. End-stage renal disease on hemodialysis on a Friday schedule 2. Right heel ulcer rule out osteomyelitis 3. Volume overload 4. CK D mineral bone disorder Plan: HemodialySIS ON 06/18/2022 Contnue with midodrine with HD.
[2022-06-16 11:57] LABS: Glucose,Whole Blood 133 mg/dL (70-110)
[2022-06-16] MEDS: MIDODRINE 5 MG TAB PO SCH (14:07)
[2022-06-16 16:33] LABS: Glucose,Whole Blood 207 mg/dL (70-110)
--- NOTE | 2022-06-16 17:49 | P.PN ---
Subjective Progress Note Date: 06/16/22 Principal diagnosis: Right fourth toe Osteomyelitis Patient is a 71-year-old female with a past medical history significant for diabetes mellitus COPD hypertension hyperlipidemia and stated he started hemodialysis in atrial fibrillation patient did have a previous history of diabetic foot infection requiring amputation of the right first and second toe, patient is presenting to the for evaluation of nonhealing wound to the dorsum aspect of the right 4th toe as well as to the right heel area, with outpatient MRI suspicious for right fourth toe osteomyelitis. On today's evaluation that is 06/16/2022, the patient continues to be afebrile, the patient denies chest pain shortness of breath or cough , the patient denies nausea and vomiting no abdominal pain , the patient pain to the right fourth toe is currently controlled Objective - Vital Signs Vital signs: Vital Signs Temp 98.3 F 06/16/22 13:32 Pulse 64 06/16/22 13:32 Resp 15 06/16/22 13:32 BP 86/43 06/16/22 13:32 Pulse Ox 92 L 06/16/22 13:32 FiO2 Intake & Output 06/15/22 06/16/22 06/16/22 18:59 06:59 18:59 Intake Total 358 Balance 358 Intake: Oral 358 Other: Voiding Method Bedside Commode Bedside Commode Bedside Commode # Voids 1 1 - Exam GENERAL DESCRIPTION: An elderly female lying in bed in no distress RESPIRATORY SYSTEM: Unlabored breathing , decreased breath sounds at bases HEART: S1 S2 regular rate and rhythm , ABDOMEN: Soft , no tenderness EXTREMITIES: Right fourth toe dorsal aspect wound has dried out surrounding s welling redness improved - Labs CBC & Chem 7: 06/15/22 05:33 06/16/22 06:05 Labs: Abnormal Lab Results - Last 24 Hours (Table) 06/15/22 06/15/22 06/16/22 Range/Units 17:10 20:05 06:05 ESR (0-20) mm/hr Creatinine 4.14 H (0.52-1.04) mg/dL POC Glucose (mg/dL) 182 H 212 H (70-110) mg/dL C-Reactive Protein 4.1 H (<1.0) mg/dL 06/16/22 06/16/22 Range/Units 06:05 11:55 ESR 61 H (0-20) mm/hr Creatinine (0.52-1.04) mg/dL POC Glucose (mg/dL) 133 H (70-110) mg/dL C-Reactive Protein (<1.0) mg/dL Microbiology - Last 24 Hours (Table) 06/13/22 03:20 Blood Culture - Preliminary Blood No Growth after 72 hours 06/13/22 03:05 Blood Culture - Preliminary Blood No Growth after 72 hours 06/13/22 03:05 Gram Stain - Final Foot - Right Wound Culture - Final Staphylococcus epidermidis Assessment and Plan (1) Osteomyelitis of right foot Current Visit: Yes Status: Acute Code(s): M86.9 - OSTEOMYELITIS, UNSPECIFIED SNOMED Code(s): 8871814953915692 Plan: 1patient with a nonhealing wound on the tip of her right 4th toe has been there for couple of weeks now in this patient who did have a abnormal MRI completed on 06/03/2019 suspicious for Osteomyelitis with destructive changes, failing outpatient oral antibiotic therapy 2blood culture had been negative so far local culture are currently pending 3patient has been evaluated by vascular surgical currently recommended no surgical intervention 4patient local culture has been finalized with staph epi we will continue vancomycin and discontinue Zosyn plan to continue vancomycin through dialysis fo r 6 weeks and close outpatient follow-up Time with Patient: Less than 30
[2022-06-16 20:55] LABS: Glucose,Whole Blood 217 mg/dL (70-110)
[2022-06-16] MEDS: ATORVASTATIN 40 MG TAB PO SCH (21:47)
--- NOTE | 2022-06-16 23:37 | P.PN ---
Subjective Progress Note Date: 06/16/22 Patient is a 71-year-old female with a known history of COPD, hypertension, diabetes type 2, ESRD on hemodialysis, hx of amputation of the right first and second toe and Left AKA was admitted to the hospital due to right diabetic foot infection and heel ulcer 06/16/2022 Patient is currently sitting in the bed. Awake alert and oriented x3. No complaints of chest pain or shortness of breath. No fever no chills. Right foot pain is better controlled. Right foot dressing change was done. Wound cultures are pending Patient is being continued on antibiotics with vancomycin and ID is on board. CT chest showed mild infiltrate and atelectasis of the posterior lung bases. Appears to be mostly new compared to old exam. Emphysema without much change. No suspicious pulmonary mass. Mild aneurysm of the ascending aorta measuring 4.4 cm unchanged. No complaints of nausea vomiting or diarrhea. Laboratory test showed ESR 61 creatinine 4.1 CRP 4.1 and vancomycin level is 20.0 and blood sugar is 133 this morning. Current medications reviewed. Objective - Vital Signs Vital signs: Vital Signs Temp 97.3 F L 06/16/22 07:55 Pulse 72 06/16/22 12:11 Resp 17 06/16/22 07:55 BP 87/49 06/16/22 07:55 Pulse Ox 100 06/16/22 07:55 FiO2 Intake & Output 06/15/22 06/16/22 06/16/22 18:59 06:59 18:59 Intake Total 358 Balance 358 Intake: Oral 358 Other: Voiding Method Bedside Commode Bedside Commode Bedside Commode # Voids 1 1 - Exam PHYSICAL EXAMINATION: Patient is lying in the bed comfortably, no acute distress, awake alert and orie nted.. HEENT: Normocephalic. Neck is supple. Pupils reactive. Nostrils clear. Oral cavity is moist. Neck reveals no JVD, carotid bruits, or thyromegaly. CHEST EXAMINATION: Trachea is central. Symmetrical expansion. Lung dodge clear to auscultation and percussion. Bibasilar diminished sounds. CARDIAC: Normal S1, S2 with no gallops. No murmurs ABDOMEN: Soft. Bowel sounds present. Nontender. No organomegaly. No abdominal bruits. Extremities: reveal no edema. Right foot dressing in place. No clubbing or cyanosis Neurologically awake, alert, oriented x3 with well-coordinated movements. No focal deficits noted Skin: No rash or skin lesions. Psychiatric: Coperative. Nonsuicidal, Musculoskeletal: No joint swelling or deformity. Normal range of motion. - Labs CBC & Chem 7: 06/15/22 05:33 06/16/22 06:05 Labs: Abnormal Lab Results - Last 24 Hours (Table) 06/15/22 06/15/22 06/16/22 Range/Units 17:10 20:05 06:05 ESR (0-20) mm/hr Creatinine 4.14 H (0.52-1.04) mg/dL POC Glucose (mg/dL) 182 H 212 H (70-110) mg/dL C-Reactive Protein 4.1 H (<1.0) mg/dL 06/16/22 06/16/22 Range/Units 06:05 11:55 ESR 61 H (0-20) mm/hr Creatinine (0.52-1.04) mg/dL POC Glucose (mg/dL) 133 H (70-110) mg/dL C-Reactive Protein (<1.0) mg/dL Microbiology - Last 24 Hours (Table) 06/13/22 03:20 Blood Culture - Preliminary Blood No Growth after 72 hours 06/13/22 03:05 Blood Culture - Preliminary Blood No Growth after 72 hours 06/13/22 03:05 Gram Stain - Final Foot - Right Wound Culture - Final Staphylococcus epidermidis Assessment and Plan Assessment: Right foot osteomyelitis Right diabetic foot with nonhealing wound on the tip of her right fourth toe. Failed outpatient antibiotic therapy. MRI suspicious for osteomyelitis with destructive changes. History of right toe amputation History of left AKA Diabetes type 2 ESRD on hemodialysis TTS Paroxysmal atrial fibrillation on anticoagulation with Eliquis Hypertension Hyperlipidemia Diabetic peripheral neuropathy Anxiety Chronic pain and on methadone at 125 mg daily. Current everyday smoker Plan: Patient will be continued on antibiotics and oral vancomycin. Wound culture showed staph epidermidis. Zosyn has been discontinued. ID is on board. Vascular surgery recommends debridement. Continue with pain management and other home medications and follow-up closely. Next hemodialysis will be on Friday. Nephrology and ID and vascular surgery is on board. Time with Patient: Greater than 30
[2022-06-17] MEDS: LEVOTHYROXINE 75 MCG TAB PO SCH (05:20)
[2022-06-17] MEDS: MIDODRINE 5 MG TAB PO SCH ×2 (05:20→17:29)
[2022-06-17] MEDS: PANTOPRAZOLE 40 MG TABLET PO SCH (05:21)
[2022-06-17 06:31] LABS: Glucose,Whole Blood 78 mg/dL (70-110)
[2022-06-17] MEDS: INSULIN ASPART (NovoLOG) 100 UNIT/ML VIAL SQ SCH ×4 (06:36→20:46)
[2022-06-17] MEDS: SYMBICORT 80-4.5 MCG INHALER INHALATION SCH (07:48)
[2022-06-17] MEDS: IPRATROPIUM 0.5 MG/2.5 ML NEBU INHALATION SCH ×4 (07:48→20:10)
[2022-06-17] MEDS: VIT A,C & E-LUTEIN-MINERALS 1 EACH TAB PO SCH (08:43)
[2022-06-17] MEDS: CALCIUM ACETATE 667 MG TAB PO SCH ×3 (08:43→17:29)
[2022-06-17] MEDS: LORATADINE 10 MG TAB PO SCH (08:43)
[2022-06-17] MEDS: APIXABAN 2.5 MG TABLET PO SCH ×2 (08:44→20:46)
[2022-06-17] MEDS: LIDOCAINE 2% URO-JET JELLY 5 ML KIT MISCELLANE SCH ×2 (08:44→20:39)
[2022-06-17] MEDS: FOLIC ACID-VIT B COMPLEX-VIT C 1 CAP PO SCH (08:44)
[2022-06-17] MEDS: CHOLECALCIFEROL 25 MCG (1000 IU) TABLET PO SCH (08:44)
[2022-06-17] MEDS: METHADONE 10 MG TAB PO SCH (08:48)
[2022-06-17 08:53] LABS: Basophils # (A) 0.07 X 10*3/uL (0.00-0.10); Basophils % (A) 0.7 %; Eosinophils # (A) 1.16 X 10*3/uL (0.04-0.35); Eosinophils % (A) 10.8 %; HGB 10.4 g/dL (12.0-15.0); Immature Grans, Automated 0.5 %; Lymphocytes # (A) 1.34 X 10*3/uL (0.90-5.00); Lymphocytes % (A) 12.5 %; MCH 31.3 pg (27.0-32.0); MCHC 30.6 g/dL (32.0-37.0); MCV 102.4 fL (80.0-97.0); Mean Platelet Volume 12.3 fL (9.5-12.2); Monocytes # (A) 0.99 X 10*3/uL (0.20-1.00); Monocytes % (A) 9.2 %; NRBC Per 100 WBC 0 /100 WBCS (0.0-0.0); Neutrophils # (A) 7.12 X 10*3/uL (1.80-7.70); Neutrophils % (A) 66.3 %; Platelet Count 144 X 10*3/uL (140-440); RBC 3.32 X 10*6/uL (4.10-5.20); RDW 15.7 % (11.5-14.5); WBC 10.73 X 10*3/uL (4.50-10.00)
[2022-06-17 09:01] LABS: African American GFR (CKD) 7.6 (60.0-200.0); Anion Gap 13.3 mmol/L (10.00-18.00); BUN/Creat Ratio 6.97 Ratio (12.00-20.00); Blood Urea Nitrogen 41.8 mg/dL (9.0-27.0); Calcium 8.8 mg/dL (8.7-10.3); Carbon Dioxide 26.7 mmol/L (20.0-27.5); Non-African American GFR(CKD) 6.6 (60.0-200.0); Potassium 5.4 mmol/L (3.5-5.5)
--- NOTE | 2022-06-17 09:26 | P.PN ---
Subjective Patient is seen in follow-up for end-stage renal disease. She is maintained on hemodialysis on Friday schedule. Currently being treated for right heel ulcer. Denies chest pain or shortness of breath. No active complaints. Vital signs are stable. General: No acute distress. HEENT: Head exam is unremarkable. LUNGS: Breath sounds decreased. HEART: Rate and Rhythm are regular. ABDOMEN: Soft, no distention. EXTREMITITES: Right foot wrapped. No drainage. Left AKA. Objective - Vital Signs Vital signs: Vital Signs Temp 97.9 F 06/17/22 07:55 Pulse 72 06/17/22 07:59 Resp 20 06/17/22 07:55 BP 118/71 06/17/22 07:55 Pulse Ox 98 06/17/22 07:55 FiO2 21 06/17/22 07:51 Intake & Output 06/16/22 06/17/22 06/17/22 18:59 06:59 18:59 Other: Voiding Method Bedside Commode Bedside Commode # Voids 2 # Bowel Movements 1 - Labs CBC & Chem 7: 06/17/22 05:05 06/17/22 05:05 Labs: Abnormal Lab Results - Last 24 Hours (Table) 06/16/22 06/16/22 06/16/22 Range/Units 11:55 16:32 20:53 WBC (4.50-10.00) X 10*3/uL RBC (4.10-5.20) X 10*6/uL Hgb (12.0-15.0) g/dL Hct (37.2-46.3) % MCV (80.0-97.0) fL MCHC (32.0-37.0) g/dL RDW (11.5-14.5) % MPV (9.5-12.2) fL Immature Gran # (0.00-0.04) X 10*3/uL Eosinophils # (0.04-0.35) X 10*3/uL BUN (9.0-27.0) mg/dL Creatinine (0.6-1.5) mg/dL Est GFR (CKD-EPI)AfAm (60.0-200.0) Est GFR (CKD-EPI)NonAf (60.0-200.0) BUN/Creatinine Ratio (12.00-20.00) Ratio POC Glucose (mg/dL) 133 H 207 H 217 H (70-110) mg/dL 06/17/22 06/17/22 Range/Units 05:05 05:05 WBC 10.73 H (4.50-10.00) X 10*3/uL RBC 3.32 L (4.10-5.20) X 10*6/uL Hgb 10.4 L (12.0-15.0) g/dL Hct 34.0 L (37.2-46.3) % MCV 102.4 H (80.0-97.0) fL MCHC 30.6 L (32.0-37.0) g/dL RDW 15.7 H (11.5-14.5) % MPV 12.3 H (9.5-12.2) fL Immature Gran # 0.05 H (0.00-0.04) X 10*3/uL Eosinophils # 1.16 H (0.04-0.35) X 10*3/uL BUN 41.8 H (9.0-27.0) mg/dL Creatinine 6.0 H (0.6-1.5) mg/dL Est GFR (CKD-EPI)AfAm 7.6 L (60.0-200.0) Est GFR (CKD-EPI)NonAf 6.6 L (60.0-200.0) BUN/Creatinine Ratio 6.97 L (12.00-20.00) Ratio POC Glucose (mg/dL) (70-110) mg/dL Microbiology - Last 24 Hours (Table) 06/13/22 03:20 Blood Culture - Preliminary Blood No Growth after 96 hours 06/13/22 03:05 Blood Culture - Preliminary Blood No Growth after 96 hours Assessment and Plan Plan: Assessment: 1. End-stage renal disease maintained on hemodialysis on Friday schedule via right upper extremity AV fistula. 2. Right heel ulcer on antibiotics. Concern for osteomyelitis. ID and vascular surgery following. 3. Chronic hypotension maintained on midodrine. 4. Chronic kidney disease mineral bone disease maintained on PhosLo. 5. Anemia of chronic kidney disease. Plan: Hemodialysis tomorrow. Check iron studies. Monitor vancomycin levels. Dose to be adjusted for renal function.
--- NOTE | 2022-06-17 10:06 | US ---
EXAMINATION TYPE: US arterial LE multi level DATE OF EXAM: 06/15/2022 8:35 PM CLINICAL HISTORY: Right lower extremity peripheral arterial disease. Left leg amputated above knee History of: Smoker: Yes Hypertension: No Diabetic: Yes Hyperlipidemia: Yes TIA/CVA: No Previous Vascular Surgery: Yes CAD: Yes MA: No Vascular Ulcers: Yes Claudication: No Gangrene: No Doppler Waveforms: Right: Monophasic Left: N/A Right Brachial Pressure: N/A due to fistula Left Brachial Pressure: 121 Ankle-Brachial Indices: Right: 0.62 Left: N/A Toe Brachial Indices: Right: N/A due to bp cuff did not fit on 3rd digit. 1st and 2nd digit amputated Left: N/A IMPRESSION: Patient has known peripheral arterial disease. Suboptimal study due to amputations. Loss of phasicity presenting product of known peripheral arterial disease. Diminished right-sided HOPE con sistent with at least moderate peripheral arterial disease.
[2022-06-17 11:26] LABS: Glucose,Whole Blood 206 mg/dL (70-110)
--- NOTE | 2022-06-17 11:50 | P.PN ---
Subjective Progress Note Date: 06/17/22 Principal diagnosis: Right fourth toe Osteomyelitis Patient is a 71-year-old female with a past medical history significant for diabetes mellitus COPD hypertension hyperlipidemia and stated he started hemodialysis in atrial fibrillation patient did have a previous history of diabetic foot infection requiring amputation of the right first and second toe, patient is presenting to the for evaluation of nonhealing wound to the dorsum aspect of the right 4th toe as well as to the right heel area, with outpatient MRI suspicious for right fourth toe osteomyelitis. On today's evaluation that is 06/17/2022, the patient remains to be afebrile, the patient denies chest pain shortness of breath or cough , the patient mentioned slight nausea today and did not eat her breakfast but denies any vomiting no abdominal pain or any worsening pain to the right fourth toe area Objective - Vital Signs Vital signs: Vital Signs Temp 97.9 F 06/17/22 07:55 Pulse 72 06/17/22 07:59 Resp 20 06/17/22 07:55 BP 118/71 06/17/22 07:55 Pulse Ox 98 06/17/22 07:55 FiO2 21 06/17/22 07:51 Intake & Output 06/16/22 06/17/22 06/17/22 18:59 06:59 18:59 Other: Voiding Method Bedside Commode Bedside Commode # Voids 2 # Bowel Movements 1 - Exam GENERAL DESCRIPTION: An elderly female lying in bed in no distress RESPIRATORY SYSTEM: Unlabored breathing , decreased breath sounds at bases HEART: S1 S2 regular rate and rhythm , ABDOMEN: Soft , no tenderness EXTREMITIES: Right fourth toe dorsal aspect wound currently dressed no drainage on the dressing - Labs CBC & Chem 7: 06/17/22 05:05 06/17/22 05:05 Labs: Abnormal Lab Results - Last 24 Hours (Table) 06/16/22 06/16/22 06/16/22 Range/Units 11:55 16:32 20:53 WBC (4.50-10.00) X 10*3/uL RBC (4.10-5.20) X 10*6/uL Hgb (12.0-15.0) g/dL Hct (37.2-46.3) % MCV (80.0-97.0) fL MCHC (32.0-37.0) g/dL RDW (11.5-14.5) % MPV (9.5-12.2) fL Immature Gran # (0.00-0.04) X 10*3/uL Eosinophils # (0.04-0.35) X 10*3/uL BUN (9.0-27.0) mg/dL Creatinine (0.6-1.5) mg/dL Est GFR (CKD-EPI)AfAm (60.0-200.0) Est GFR (CKD-EPI)NonAf (60.0-200.0) BUN/Creatinine Ratio (12.00-20.00) Ratio POC Glucose (mg/dL) 133 H 207 H 217 H (70-110) mg/dL 06/17/22 06/17/22 Range/Units 05:05 05:05 WBC 10.73 H (4.50-10.00) X 10*3/uL RBC 3.32 L (4.10-5.20) X 10*6/uL Hgb 10.4 L (12.0-15.0) g/dL Hct 34.0 L (37.2-46.3) % MCV 102.4 H (80.0-97.0) fL MCHC 30.6 L (32.0-37.0) g/dL RDW 15.7 H (11.5-14.5) % MPV 12.3 H (9.5-12.2) fL Immature Gran # 0.05 H (0.00-0.04) X 10*3/uL Eosinophils # 1.16 H (0.04-0.35) X 10*3/uL BUN 41.8 H (9.0-27.0) mg/dL Creatinine 6.0 H (0.6-1.5) mg/dL Est GFR (CKD-EPI)AfAm 7.6 L (60.0-200.0) Est GFR (CKD-EPI)NonAf 6.6 L (60.0-200.0) BUN/Creatinine Ratio 6.97 L (12.00-20.00) Ratio POC Glucose (mg/dL) (70-110) mg/dL Microbiology - Last 24 Hours (Table) 06/13/22 03:20 Blood Culture - Preliminary Blood No Growth after 96 hours 06/13/22 03:05 Blood Culture - Preliminary Blood No Growth after 96 hours Assessment and Plan (1) Osteomyelitis of right foot Current Visit: Yes Status: Acute Code(s): M86.9 - OSTEOMYELITIS, UNSPECIFIED SNOMED Code(s): 7695704231188692 Plan: 1patient with a nonhealing wound on the tip of her right 4th toe has been there for couple of weeks now in this patient who did have a abnormal MRI completed on 06/03/2019 suspicious for Osteomyelitis with destructive changes, failing outpatient oral antibiotic therapy 2blood culture had been negative so far local culture are currently pending 3patient has been evaluated by vascular surgical currently recommended no surgical intervention 4patient local culture has been finalized with thad reynoso, plan is for vancomycin pharmacy to dose through the dialysis 6 weeks 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
[2022-06-17 16:26] LABS: Glucose,Whole Blood 194 mg/dL (70-110)
[2022-06-17 17:23] LABS: % Iron Saturation 24.66 (12.00-45.00)
[2022-06-17] MEDS: SYMBICORT 160-4.5 MCG INHALER INHALATION SCH (20:09)
[2022-06-17 20:39] LABS: Glucose,Whole Blood 222 mg/dL (70-110)
[2022-06-17] MEDS: ATORVASTATIN 40 MG TAB PO SCH (20:46)
--- NOTE | 2022-06-18 02:48 | PN ---
PROGRESS NOTE SUBJECTIVE: A 71-year-old white female with osteomyelitis of the right leg. Her arterial Doppler shows PAD of the right leg, vascular surgeon has been seeing her. She remains on broad- spectrum antibiotics dialysis. Tests were done through CAT scan, which we went over with her. Continue current treatments with broad-spectrum IV antibiotics, PT, OT set up home IV antibiotics. Possibly PAD intervention down the road. PROGNOSIS: Guarded. MMODL / IJN: [id number] /
[2022-06-18 06:01] LABS: Glucose,Whole Blood 99 mg/dL (70-110)
[2022-06-18] MEDS: INSULIN ASPART (NovoLOG) 100 UNIT/ML VIAL SQ SCH ×4 (06:21→22:30)
[2022-06-18] MEDS: CALCIUM ACETATE 667 MG TAB PO SCH ×3 (06:53→16:49)
[2022-06-18] MEDS: PANTOPRAZOLE 40 MG TABLET PO SCH (06:53)
[2022-06-18] MEDS: LEVOTHYROXINE 75 MCG TAB PO SCH (06:53)
[2022-06-18] MEDS: MIDODRINE 5 MG TAB PO SCH ×2 (06:53→16:49)
[2022-06-18] MEDS: SYMBICORT 160-4.5 MCG INHALER INHALATION SCH ×2 (08:27→20:29)
[2022-06-18] MEDS: IPRATROPIUM 0.5 MG/2.5 ML NEBU INHALATION SCH ×4 (08:27→20:28)
[2022-06-18] MEDS: LORATADINE 10 MG TAB PO SCH (08:51)
[2022-06-18] MEDS: APIXABAN 2.5 MG TABLET PO SCH ×2 (08:51→20:28)
[2022-06-18] MEDS: VIT A,C & E-LUTEIN-MINERALS 1 EACH TAB PO SCH (08:52)
[2022-06-18] MEDS: CHOLECALCIFEROL 25 MCG (1000 IU) TABLET PO SCH (08:52)
[2022-06-18] MEDS: METHADONE 10 MG TAB PO SCH (08:54)
--- NOTE | 2022-06-18 10:37 | P.PN ---
Subjective Patient is seen in follow-up for end-stage renal disease. She is maintained on hemodialysis on Friday schedule. Currently being treated for right heel ulcer. Denies chest pain or shortness of breath. No active complaints. Scheduled for dialysis today. Vital signs are stable. General: No acute distress. HEENT: Head exam is unremarkable. LUNGS: Breath sounds decreased. HEART: Rate and Rhythm are regular. ABDOMEN: Soft, no distention. EXTREMITITES: Right foot wrapped. No drainage. Left AKA. Objective - Vital Signs Vital signs: Vital Signs Temp 98.4 F 06/18/22 08:00 Pulse 68 06/18/22 08:41 Resp 16 06/18/22 08:00 BP 123/62 06/18/22 08:00 Pulse Ox 92 L 06/18/22 08:29 FiO2 21 06/17/22 07:51 Intake & Output 06/17/22 06/18/22 06/18/22 18:59 06:59 18:59 Weight 64 kg Other: Voiding Method Bedside Commode Bedside Commode # Voids 0 5 # Bowel Movements 0 - Labs CBC & Chem 7: 06/17/22 05:05 06/17/22 05:05 Labs: Abnormal Lab Results - Last 24 Hours (Table) 06/17/22 06/17/22 06/17/22 Range/Units 05:05 11:21 16:23 POC Glucose (mg/dL) 206 H 194 H (70-110) mg/dL TIBC 207 L (228-460) ug/dL Transferrin 148.0 L (204.0-354.0) mg/dL Ferritin 1379.0 H (10.0-291.0) ng/mL 06/17/22 Range/Units 20:38 POC Glucose (mg/dL) 222 H (70-110) mg/dL TIBC (228-460) ug/dL Transferrin (204.0-354.0) mg/dL Ferritin (10.0-291.0) ng/mL Microbiology - Last 24 Hours (Table) 06/13/22 03:20 Blood Culture - Preliminary Blood No Growth after 120 hours 06/13/22 03:05 Blood Culture - Preliminary Blood No Growth after 120 hours 06/17/22 09:20 Urine Culture - Preliminary Urine,Voided Assessment and Plan Plan: Assessment: 1. End-stage renal disease maintained on hemodialysis on Friday schedule via right upper extremity AV fistula. 2. Right heel ulcer on antibiotics. Concern for osteomyelitis. ID and vascular surgery following. 3. Chronic hypotension maintained on midodrine. 4. Chronic kidney disease mineral bone disease maintained on PhosLo. 5. Anemia of chronic kidney disease. Iron replete. Plan: Hemodialysis today. Will add STANFORD if hemoglobin less than 10. Monitor vancomycin levels. Dose to be adjusted for renal function. Target level near 15.
[2022-06-18 12:34] LABS: Glucose,Whole Blood 84 mg/dL (70-110)
--- NOTE | 2022-06-18 12:40 | P.PN ---
Subjective Progress Note Date: 06/18/22 Principal diagnosis: Right fourth toe Osteomyelitis Patient is a 71-year-old female with a past medical history significant for diabetes mellitus COPD hypertension hyperlipidemia and stated he started hemodialysis in atrial fibrillation patient did have a previous history of diabetic foot infection requiring amputation of the right first and second toe, patient is presenting to the for evaluation of nonhealing wound to the dorsum aspect of the right 4th toe as well as to the right heel area, with outpatient MRI suspicious for right fourth toe osteomyelitis. On today's evaluation that is 06/18/2022, the patient continues to be afebrile, the patient denies chest pain shortness of breath or cough , the patient denies any further nausea no vomiting no abdominal pain and diarrhea or any worsening pain to the right fourth toe wound area Objective - Vital Signs Vital signs: Vital Signs Temp 98.4 F 06/18/22 08:00 Pulse 68 06/18/22 08:41 Resp 16 06/18/22 08:00 BP 123/62 06/18/22 08:00 Pulse Ox 92 L 06/18/22 08:29 FiO2 21 06/17/22 07:51 Intake & Output 06/17/22 06/18/22 06/18/22 18:59 06:59 18:59 Weight 64 kg Other: Voiding Method Bedside Commode Bedside Commode # Voids 0 5 # Bowel Movements 0 - Exam GENERAL DESCRIPTION: An elderly female lying in bed in no distress RESPIRATORY SYSTEM: Unlabored breathing , decreased breath sounds at bases HEART: S1 S2 regular rate and rhythm , ABDOMEN: Soft , no tenderness EXTREMITIES: Right fourth toe dorsal aspect wound currently dressed no drainage on the dressing - Labs CBC & Chem 7: 06/17/22 05:05 06/17/22 05:05 Labs: Abnormal Lab Results - Last 24 Hours (Table) 06/17/22 06/17/22 06/17/22 Range/Units 05:05 11:21 16:23 POC Glucose (mg/dL) 206 H 194 H (70-110) mg/dL TIBC 207 L (228-460) ug/dL Transferrin 148.0 L (204.0-354.0) mg/dL Ferritin 1379.0 H (10.0-291.0) ng/mL 06/17/22 Range/Units 20:38 POC Glucose (mg/dL) 222 H (70-110) mg/dL TIBC (228-460) ug/dL Transferrin (204.0-354.0) mg/dL Ferritin (10.0-291.0) ng/mL Microbiology - Last 24 Hours (Table) 06/13/22 03:20 Blood Culture - Preliminary Blood No Growth after 120 hours 06/13/22 03:05 Blood Culture - Preliminary Blood No Growth after 120 hours 06/17/22 09:20 Urine Culture - Preliminary Urine,Voided Assessment and Plan (1) Osteomyelitis of right foot Current Visit: Yes Status: Acute Code(s): M86.9 - OSTEOMYELITIS, UNSPECIFIED SNOMED Code(s): 1318862704977883 Plan: 1patient with a nonhealing wound on the tip of her right 4th toe has been there for couple of weeks now in this patient who did have a abnormal MRI completed on 06/03/2019 suspicious for Osteomyelitis with destructive changes, failing outpatient oral antibiotic therapy 2blood culture had been negative 3patient has been evaluated by vascular surgical currently recommended no surgical intervention 4patient local culture has been finalized with thad reynoso, patient to continue the vancomycin pharmacy to dose through dialysis for total of 6 weeks and close outpatient follow-up Time with Patient: Less than 30
[2022-06-18] MEDS: LIDOCAINE 2% URO-JET JELLY 5 ML KIT MISCELLANE SCH ×2 (13:36→20:25)
[2022-06-18] MEDS: FOLIC ACID-VIT B COMPLEX-VIT C 1 CAP PO SCH (13:36)
[2022-06-18 16:08] LABS: Glucose,Whole Blood 166 mg/dL (70-110)
--- NOTE | 2022-06-18 17:46 | CDI ---
Documentation Clarification Form Date: 06/18/2022 5:33:30 PM From: Myla Romero RN CCDS Admit Date: 06/13/2022 4:57:00 AM Patient Name: Raquel Luevano Visit Number: [id number] Discharge Date: ATTENTION: The Clinical Documentation Specialists (CDI) and [facility] Coding Staff appreciate your assistance in clarifying documentation. Please respond to the clarification below the line at the bottom and electronically sign. The CDI & [facility] Coding staff will review the response and follow-up if needed. Please note: Queries are made part of the Legal Health Record. If you have any questions, please contact the author of this message via ITS. Dr. Javan Harper A right buttock stage 2 pressure ulcer is documented by Nursing 06/13, Pressure Injury assessment. Based on this information and the findings below, is there an additional diagnosis that is clinically appropriate for this patient? History/Risk Factors: 71-year-old female presents to the ED with one month history of right foot and toe infection and increased redness. Medical history: ESRD on hemodialysis; DM; COPD; AKA; Vascular Disorder and Neuropathy. 06/13, ED. Clinical Indicators: Location: Right Buttock Wound description: Length 0.75cm; Width 0.25cm; Depth 0.1cm; Epithelialization 76-100%; Wound margins distinct. Treatment: Barrier cream; Absorbent underpad, check hourly, Turn 2QH while in bed. Is there an additional diagnosis that is clinically appropriate for this patient? [ ] Right Buttock Pressure Ulcer Stage 2 [ ] Other condition, please specify [ ] Unable to determine Clinical Definitions: Stage 1 Pressure Ulcer: intact skin, non-blanching redness of local area Stage 2 Pressure Ulcer: Partial thickness, loss of dermis, pink wound bed Stage 3 Pressure Ulcer: Full thickness tissue loss Stage 4 Pressure Ulcer: Full thickness tissue loss with exposed bone, tendon, or muscle. Unstageable pressure ulcer: Full thickness tissue loss in which the base of the ulcer is covered by slough (yellow, naylor, devi, green or brown) and/or eschar (naylor, brown or black) in the wound bed. (Template Last Revised: July 2020) MTDD
[2022-06-18] MEDS: ATORVASTATIN 40 MG TAB PO SCH (20:28)
[2022-06-18] MEDS: ALPRAZolam 1 MG TAB PO PRN (20:34)
[2022-06-18 20:44] LABS: Glucose,Whole Blood 237 mg/dL (70-110)
--- NOTE | 2022-06-19 00:05 | US ---
EXAMINATION TYPE: US venous doppler duplex UE RT DATE OF EXAM: 06/18/2022 COMPARISON: NONE CLINICAL HISTORY: r/o dvt. right forearm swelling. On blood thinners. Hx of DVT in left arm. Fistula in upper right arm SIDE PERFORMED: Right Right Arm: Appears negative for DVT. Multiple varicosities of veins visualized, but all seemed compre ssible. Unable to visualize veins near elbow due to bandage. IMPRESSION: No evidence of deep vein thrombosis in the right arm. Venous varicosities are demonstrated.
[2022-06-19] MEDS: LEVOTHYROXINE 75 MCG TAB PO SCH (05:57)
[2022-06-19] MEDS: PANTOPRAZOLE 40 MG TABLET PO SCH (05:57)
[2022-06-19] MEDS: ALPRAZolam 1 MG TAB PO PRN (05:57)
[2022-06-19 06:22] LABS: Glucose,Whole Blood 111 mg/dL (70-110)
[2022-06-19] MEDS: INSULIN ASPART (NovoLOG) 100 UNIT/ML VIAL SQ SCH ×4 (07:03→20:46)
[2022-06-19] MEDS: MIDODRINE 5 MG TAB PO SCH ×2 (07:03→17:40)
[2022-06-19] MEDS: CALCIUM ACETATE 667 MG TAB PO SCH ×3 (07:04→18:03)
[2022-06-19] MEDS: SYMBICORT 160-4.5 MCG INHALER INHALATION SCH ×2 (07:44→20:27)
[2022-06-19] MEDS: IPRATROPIUM 0.5 MG/2.5 ML NEBU INHALATION SCH ×4 (07:44→20:27)
[2022-06-19] MEDS: APIXABAN 2.5 MG TABLET PO SCH ×2 (09:51→20:46)
[2022-06-19] MEDS: FOLIC ACID-VIT B COMPLEX-VIT C 1 CAP PO SCH (09:51)
[2022-06-19] MEDS: VIT A,C & E-LUTEIN-MINERALS 1 EACH TAB PO SCH (09:51)
[2022-06-19] MEDS: CHOLECALCIFEROL 25 MCG (1000 IU) TABLET PO SCH (09:51)
[2022-06-19] MEDS: LORATADINE 10 MG TAB PO SCH (09:51)
[2022-06-19] MEDS: LIDOCAINE 2% URO-JET JELLY 5 ML KIT MISCELLANE SCH ×2 (09:51→20:44)
[2022-06-19] MEDS: METHADONE 10 MG TAB PO SCH (09:51)
--- NOTE | 2022-06-19 11:19 | PN ---
PROGRESS NOTE SUBJECTIVE: The patient comes in with cellulitis of the right leg, PAD. Dr. Felix has seen her for Infectious Disease. She remains on broad-spectrum antibiotics. She has end-stage renal disease, dialysis 3 times a week. She has a history of atrial fibrillation. 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 She has a nonhealing wound to the dorsum aspect of the right 4th toe, right heel area. Outpatient MRI is suspicious for right 4th toe osteomyelitis. Remains on broad-spectrum antibiotics. Apparently, she had some right arm swelling today, possibly from IV infiltration, hold IV. Get ultrasound of the arm. Get a vascular consult for that. OBJECTIVE: VITAL SIGNS: Temp 98.4, pulse 68, respiratory rate 16 to 18, blood pressure 123/62, O2 of 92%, FiO2 of 21. CARDIOVASCULAR: S1, S2. LUNGS: Scattered wheeze. PSYCH: Presently giving appropriate answers. NEUROLOGIC: Alert and oriented x3. EXTREMITIES: Right leg in a dressing. ABDOMEN: Soft. LABORATORY DATA: BUN is 41, creatinine is 6.0. White count 10.7, hemoglobin is 10.4. ASSESSMENT: Osteomyelitis of the right foot. She is suspicious for osteomyelitis and destructive changes, failing outpatient oral antibiotics. Blood cultures are negative. No surgical intervention at this point. Continue with broad-spectrum antibiotics, vancomycin. Pharmacy to dose through dialysis, total 6 weeks on discharge. Right now, we are going to watch her for her right. She will need to be set up for vancomycin outpatient. In the meantime, continue doing an ultrasound of the arm for possible right arm DVT and monitor her infiltration with IV. Prognosis guarded. MMODL / IJN: [id number] /
[2022-06-19 11:22] LABS: Glucose,Whole Blood 304 mg/dL (70-110)
--- NOTE | 2022-06-19 12:40 | P.PN ---
Subjective Patient is seen in follow-up for end-stage renal disease. She is maintained on hemodialysis on Friday schedule. Currently being treated for right heel ulcer. Denies chest pain or shortness of breath. No active complaints. No problems with dialysis yesterday. Vital signs are stable. General: No acute distress. HEENT: Head exam is unremarkable. LUNGS: Breath sounds decreased. HEART: Rate and Rhythm are regular. ABDOMEN: Soft, no distention. EXTREMITITES: Right foot wrapped. No drainage. Left AKA. Objective - Vital Signs Vital signs: Vital Signs Temp 98.1 F 06/19/22 07:57 Pulse 78 06/19/22 11:37 Resp 19 06/19/22 08:43 BP 93/63 06/19/22 07:57 Pulse Ox 91 L 06/19/22 07:57 FiO2 21 06/17/22 07:51 Intake & Output 06/18/22 06/19/22 06/19/22 18:59 06:59 18:59 Intake Total 300 240 Output Total 2300 0 Balance -2000 0 240 Intake: Oral 240 Hemodialysis 300 Output: Urine 0 Hemodialysis 2300 Other: Voiding Method Bedside Commode Bedside Commode Bedside Commode # Voids 0 # Bowel Movements 0 - Labs CBC & Chem 7: 06/17/22 05:05 06/17/22 05:05 Labs: Abnormal Lab Results - Last 24 Hours (Table) 06/18/22 06/18/22 06/19/22 Range/Units 16:06 20:42 06:20 POC Glucose (mg/dL) 166 H 237 H 111 H (70-110) mg/dL 06/19/22 Range/Units 11:21 POC Glucose (mg/dL) 304 H (70-110) mg/dL Microbiology - Last 24 Hours (Table) 06/17/22 09:20 Urine Culture - Preliminary Urine,Voided Yeast species 06/13/22 03:20 Blood Culture - Final Blood No Growth after 144 hours 06/13/22 03:05 Blood Culture - Final Blood No Growth after 144 hours 06/13/22 03:05 Anaerobic Culture - Final Foot - Right Clostridium perfringens Assessment and Plan Plan: Assessment: 1. End-stage renal disease maintained on hemodialysis on Friday schedule via right upper extremity AV fistula. 2. Right heel ulcer on antibiotics. Concern for osteomyelitis. ID and vascu lar surgery following. 3. Chronic hypotension maintained on midodrine. 4. Chronic kidney disease mineral bone disease maintained on PhosLo. 5. Anemia of chronic kidney disease. Iron replete. Plan: Hemodialysis tomorrow. Will add STANFORD if hemoglobin less than 10. Monitor vancomycin levels. Dose to be adjusted for renal function. Target level near 15.
[2022-06-19 16:57] LABS: Glucose,Whole Blood 190 mg/dL (70-110)
--- NOTE | 2022-06-19 17:11 | P.PN ---
Subjective Progress Note Date: 06/19/22 Principal diagnosis: Right fourth toe Osteomyelitis Patient is a 71-year-old female with a past medical history significant for diabetes mellitus COPD hypertension hyperlipidemia and stated he started hemodialysis in atrial fibrillation patient did have a previous history of diabetic foot infection requiring amputation of the right first and second toe, patient is presenting to the for evaluation of nonhealing wound to the dorsum aspect of the right 4th toe as well as to the right heel area, with outpatient MRI suspicious for right fourth toe osteomyelitis. On today's evaluation that is 06/19/2022, the patient remains to be afebrile, the patient denies chest pain shortness of breath or cough , the patient denies nausea no vomiting no abdominal pain and diarrhea , the patient pain to the right fourth toe wound area is currently controlled Objective - Vital Signs Vital signs: Vital Signs Temp 98.1 F 06/19/22 07:57 Pulse 68 06/19/22 07:57 Resp 19 06/19/22 07:57 BP 93/63 06/19/22 07:57 Pulse Ox 91 L 06/19/22 07:57 FiO2 21 06/17/22 07:51 Intake & Output 06/18/22 06/19/22 06/19/22 18:59 06:59 18:59 Intake Total 300 Output Total 2300 0 Balance -2000 0 Intake: Hemodialysis 300 Output: Urine 0 Hemodialysis 2300 Other: Voiding Method Bedside Commode Bedside Commode # Voids 0 # Bowel Movements 0 - Exam GENERAL DESCRIPTION: An elderly female lying in bed in no distress RESPIRATORY SYSTEM: Unlabored breathing , decreased breath sounds at bases HEART: S1 S2 regular rate and rhythm , ABDOMEN: Soft , no tenderness EXTREMITIES: Right fourth toe dorsal aspect wound currently dressed no drainage on the dressing - Labs CBC & Chem 7: 06/17/22 05:05 06/17/22 05:05 Labs: Abnormal Lab Results - Last 24 Hours (Table) 06/18/22 06/18/22 06/19/22 Range/Units 16:06 20:42 06:20 POC Glucose (mg/dL) 166 H 237 H 111 H (70-110) mg/dL Microbiology - Last 24 Hours (Table) 06/13/22 03:20 Blood Culture - Final Blood No Growth after 144 hours 06/13/22 03:05 Blood Culture - Final Blood No Growth after 144 hours 06/13/22 03:05 Anaerobic Culture - Final Foot - Right Clostridium perfringens 06/17/22 09:20 Urine Culture - Final Urine,Voided Assessment and Plan (1) Osteomyelitis of right foot Current Visit: Yes Status: Acute Code(s): M86.9 - OSTEOMYELITIS, UNSPECIFIED SNOMED Code(s): 1017347397281602 Plan: 1patient with a nonhealing wound on the tip of her right 4th toe has been there for couple of weeks now in this patient who did have a abnormal MRI completed on 06/03/2019 suspicious for Osteomyelitis with destructive changes, failing outpatient oral antibiotic therapy 2blood culture had been negative 3patient has been evaluated by vascular surgical currently recommended no surgical intervention 4patient local culture has been finalized with thad epi, patient to continue the vancomycin pharmacy to dose through dialysis will add Flagyl for anaerobic coverage and recheck her inflammatory markers Time with Patient: Less than 30
[2022-06-19 20:37] LABS: Glucose,Whole Blood 207 mg/dL (70-110)
[2022-06-19] MEDS: ATORVASTATIN 40 MG TAB PO SCH (20:46)
[2022-06-19] MEDS: metroNIDAZOLE 500 MG TAB PO SCH (20:46)
[2022-06-20] MEDS: ALPRAZolam 1 MG TAB PO PRN ×2 (00:33→11:59)
--- NOTE | 2022-06-20 03:23 | PN ---
PROGRESS NOTE SUBJECTIVE: A 72-year-old white female with end-stage renal disease and osteomyelitis. Waiting for vancomycin, to be set up with dialysis for the next [address] Felix. Once that is arranged, the patient could be discharged home. She could just get dialysis in the hospital. OBJECTIVE: VITAL SIGNS: Stable, afebrile. CARDIOVASCULAR: S1, S2. LUNGS: Clear. GI: Soft. HEMATOLOGY: Negative for Homans. ASSESSMENT: Cellulitis of the legs, peripheral arterial disease, and end-stage renal disease. PROGNOSIS: Extremely guarded. Set up vancomycin for 6 weeks outpatient IV and then she can go home. Continue with dialysis as an outpatient. MMODL / IJN: [id number] /
[2022-06-20] MEDS: PANTOPRAZOLE 40 MG TABLET PO SCH (06:22)
[2022-06-20] MEDS: LEVOTHYROXINE 75 MCG TAB PO SCH (06:22)
[2022-06-20] MEDS: MIDODRINE 5 MG TAB PO SCH ×2 (06:22→17:19)
[2022-06-20 06:38] LABS: Glucose,Whole Blood 110 mg/dL (70-110)
[2022-06-20] MEDS: INSULIN ASPART (NovoLOG) 100 UNIT/ML VIAL SQ SCH ×3 (06:55→17:35)
[2022-06-20 07:08] LABS: ALT 23 U/L (4-34); AST 23 U/L (14-36); African American GFR (CKD) 6 (>60 ml/min/1.73 sqM); Albumin 3.4 g/dL (3.5-5.0); Albumin/Globulin Ratio 1.1; Alkaline Phosphatase 145 U/L (38-126); Anion Gap 11 mmol/L; Blood Urea Nitrogen 62 mg/dL (7-17); Calcium 8.2 mg/dL (8.4-10.2); Carbon Dioxide 26 mmol/L (22-30); Chloride 97 mmol/L (98-107); Glucose 95 mg/dL (74-99); Non-African American GFR(CKD) 5 (>60 ml/min/1.73 sqM); Potassium 5.2 mmol/L (3.5-5.1); Sodium 134 mmol/L (137-145); Total Bilirubin 0.4 mg/dL (0.2-1.3); Total Protein 6.4 g/dL (6.3-8.2)
[2022-06-20] MEDS: SYMBICORT 160-4.5 MCG INHALER INHALATION SCH (07:49)
[2022-06-20] MEDS: IPRATROPIUM 0.5 MG/2.5 ML NEBU INHALATION SCH ×3 (07:49→16:21)
[2022-06-20] MEDS: METHADONE 10 MG TAB PO SCH (08:05)
[2022-06-20] MEDS: metroNIDAZOLE 500 MG TAB PO SCH ×2 (08:05→17:35)
[2022-06-20] MEDS: APIXABAN 2.5 MG TABLET PO SCH (08:05)
[2022-06-20] MEDS: CHOLECALCIFEROL 25 MCG (1000 IU) TABLET PO SCH (08:05)
[2022-06-20] MEDS: LORATADINE 10 MG TAB PO SCH (08:05)
[2022-06-20] MEDS: FOLIC ACID-VIT B COMPLEX-VIT C 1 CAP PO SCH (08:10)
[2022-06-20] MEDS: VIT A,C & E-LUTEIN-MINERALS 1 EACH TAB PO SCH (08:10)
[2022-06-20 09:12] LABS: Vancomycin,Random 23.2 ug/mL
[2022-06-20 09:41] LABS: Basophils # (A) 0.09 X 10*3/uL (0.00-0.10); Basophils % (A) 0.8 %; Eosinophils # (A) 0.71 X 10*3/uL (0.04-0.35); Eosinophils % (A) 6.5 %; HCT 33.6 % (37.2-46.3); HGB 10.5 g/dL (12.0-15.0); Lymphocytes # (A) 3.87 X 10*3/uL (0.90-5.00); Lymphocytes % (A) 35.7 %; MCH 31.2 pg (27.0-32.0); MCHC 31.3 g/dL (32.0-37.0); MCV 99.7 fL (80.0-97.0); Mean Platelet Volume 12.4 fL (9.5-12.2); Monocytes # (A) 1.02 X 10*3/uL (0.20-1.00); Monocytes % (A) 9.4 %; NRBC Per 100 WBC 0 /100 WBCS (0.0-0.0); Neutrophils # (A) 5.05 X 10*3/uL (1.80-7.70); Neutrophils % (A) 46.6 %; Platelet Count 150 X 10*3/uL (140-440); RBC 3.37 X 10*6/uL (4.10-5.20); RDW 15.2 % (11.5-14.5); WBC 10.85 X 10*3/uL (4.50-10.00)
[2022-06-20 10:05] LABS: Erythrocyte Sedimentation Rate 62 mm/Hr (0-30)
[2022-06-20 10:06] VITALS: BP 102/59; RESP 16; TEMP 97.5
[2022-06-20] MEDS: CALCIUM ACETATE 667 MG TAB PO SCH ×3 (11:03→17:19)
[2022-06-20 11:10] VITALS: PULSE 76
[2022-06-20 11:45] LABS: Glucose,Whole Blood 102 mg/dL (70-110)
--- NOTE | 2022-06-20 12:13 | P.PN ---
Subjective Patient is seen in follow-up for end-stage renal disease. She is maintained on hemodialysis on Friday schedule. Currently being treated for right heel ulcer. Denies chest pain or shortness of breath. No active complaints. No problems with dialysis this morning. Vital signs are stable. General: No acute distress. HEENT: Head exam is unremarkable. LUNGS: Breath sounds decreased. HEART: Rate and Rhythm are regular. ABDOMEN: Soft, no distention. EXTREMITITES: Right foot wrapped. No drainage. Left AKA. Objective - Vital Signs Vital signs: Vital Signs Temp 97.5 F L 06/20/22 10:03 Pulse 76 06/20/22 11:13 Resp 16 06/20/22 10:03 BP 102/59 06/20/22 10:03 Pulse Ox 97 06/20/22 07:51 FiO2 21 06/17/22 07:51 Intake & Output 06/19/22 06/20/22 06/20/22 18:59 06:59 18:59 Intake Total 358 400 Output Total 2400 Balance 358 -2000 Intake: Oral 358 Hemodialysis 400 Output: Hemodialysis 2400 Other: Voiding Method Bedside Commode # Voids 1 2 - Labs CBC & Chem 7: 06/20/22 06:21 06/20/22 06:21 Labs: Abnormal Lab Results - Last 24 Hours (Table) 06/19/22 06/19/22 06/20/22 Range/Units 16:57 20:33 06:21 WBC (4.50-10.00) X 10*3/uL RBC (4.10-5.20) X 10*6/uL Hgb (12.0-15.0) g/dL Hct (37.2-46.3) % MCV (80.0-97.0) fL MCHC (32.0-37.0) g/dL RDW (11.5-14.5) % MPV (9.5-12.2) fL Immature Gran # (0.00-0.04) X 10*3/uL Monocytes # (0.20-1.00) X 10*3/uL Eosinophils # (0.04-0.35) X 10*3/uL ESR (0-30) mm/Hr Sodium 134 L (137-145) mmol/L Potassium 5.2 H (3.5-5.1) mmol/L Chloride 97 L (98-107) mmol/L BUN 62 H (7-17) mg/dL Creatinine 7.29 H* (0.52-1.04) mg/dL POC Glucose (mg/dL) 190 H 207 H (70-110) mg/dL Calcium 8.2 L (8.4-10.2) mg/dL Alkaline Phosphatase 145 H (38-126) U/L C-Reactive Protein 1.0 H (<1.0) mg/dL Albumin 3.4 L (3.5-5.0) g/dL 06/20/22 Range/Units 06:21 WBC 10.85 H (4.50-10.00) X 10*3/uL RBC 3.37 L (4.10-5.20) X 10*6/uL Hgb 10.5 L (12.0-15.0) g/dL Hct 33.6 L (37.2-46.3) % MCV 99.7 H (80.0-97.0) fL MCHC 31.3 L (32.0-37.0) g/dL RDW 15.2 H (11.5-14.5) % MPV 12.4 H (9.5-12.2) fL Immature Gran # 0.11 H (0.00-0.04) X 10*3/uL Monocytes # 1.02 H (0.20-1.00) X 10*3/uL Eosinophils # 0.71 H (0.04-0.35) X 10*3/uL ESR 62 H (0-30) mm/Hr Sodium (137-145) mmol/L Potassium (3.5-5.1) mmol/L Chloride (98-107) mmol/L BUN (7-17) mg/dL Creatinine (0.52-1.04) mg/dL POC Glucose (mg/dL) (70-110) mg/dL Calcium (8.4-10.2) mg/dL Alkaline Phosphatase (38-126) U/L C-Reactive Protein (<1.0) mg/dL Albumin (3.5-5.0) g/dL Microbiology - Last 24 Hours (Table) 06/17/22 09:20 Urine Culture - Preliminary Urine,Voided Yeast species Assessment and Plan Plan: Assessment: 1. End-stage renal disease maintained on hemodialysis on Friday Sat rd schedule via right upper extremity AV fistula. 2. Right heel ulcer on antibiotics. Concern for osteomyelitis. ID and vascular surgery following. 3. Chronic hypotension maintained on midodrine. 4. Chronic kidney disease mineral bone disease maintained on PhosLo. 5. Anemia of chronic kidney disease. Iron replete. Plan: Completed hemodialysis this morning. Next treatment on Friday. Will add STANFORD if hemoglobin less than 10. Monitor vancomycin levels. Dose to be adjusted for renal function. Target level near 15.
--- NOTE | 2022-06-20 14:07 | P.PN ---
Subjective Progress Note Date: 06/20/22 Principal diagnosis: Right fourth toe Osteomyelitis Patient is a 71-year-old female with a past medical history significant for diabetes mellitus COPD hypertension hyperlipidemia and stated he started hemodialysis in atrial fibrillation patient did have a previous history of diabetic foot infection requiring amputation of the right first and second toe, patient is presenting to the for evaluation of nonhealing wound to the dorsum aspect of the right 4th toe as well as to the right heel area, with outpatient MRI suspicious for right fourth toe osteomyelitis. On today's evaluation that is 06/20/2022, the patient denies any fever or any chills, the patient denies chest pain shortness of breath or cough , the patient denies nausea no vomiting no abdominal pain and diarrhea , the patient pain to the right fourth toe wound area is currently controlled, the patient hardly makes any urine and denies having any burning of urine and no suprapubic pain Objective - Vital Signs Vital signs: Vital Signs Temp 97.5 F L 06/20/22 10:03 Pulse 76 06/20/22 11:13 Resp 16 06/20/22 10:03 BP 102/59 06/20/22 10:03 Pulse Ox 97 06/20/22 07:51 FiO2 21 06/17/22 07:51 Intake & Output 06/19/22 06/20/22 06/20/22 18:59 06:59 18:59 Intake Total 358 600 Output Total 2400 Balance 358 -1800 Intake: Oral 358 200 Hemodialysis 400 Output: Hemodialysis 2400 Other: Voiding Method Bedside Commode # Voids 1 2 - Exam GENERAL DESCRIPTION: An elderly female lying in bed in no distress RESPIRATORY SYSTEM: Unlabored breathing , decreased breath sounds at bases HEART: S1 S2 regular rate and rhythm , ABDOMEN: Soft , no tenderness EXTREMITIES: Right fourth toe dorsal aspect wound currently dressed no drainage on the dressing - Labs CBC & Chem 7: 06/20/22 06:21 06/20/22 06:21 Labs: Abnormal Lab Results - Last 24 Hours (Table) 06/19/22 06/19/22 06/20/22 Range/Units 16:57 20:33 06:21 WBC (4.50-10.00) X 10*3/uL RBC (4.10-5.20) X 10*6/uL Hgb (12.0-15.0) g/dL Hct (37.2-46.3) % MCV (80.0-97.0) fL MCHC (32.0-37.0) g/dL RDW (11.5-14.5) % MPV (9.5-12.2) fL Immature Gran # (0.00-0.04) X 10*3/uL Monocytes # (0.20-1.00) X 10*3/uL Eosinophils # (0.04-0.35) X 10*3/uL ESR (0-30) mm/Hr Sodium 134 L (137-145) mmol/L Potassium 5.2 H (3.5-5.1) mmol/L Chloride 97 L (98-107) mmol/L BUN 62 H (7-17) mg/dL Creatinine 7.29 H* (0.52-1.04) mg/dL POC Glucose (mg/dL) 190 H 207 H (70-110) mg/dL Calcium 8.2 L (8.4-10.2) mg/dL Alkaline Phosphatase 145 H (38-126) U/L C-Reactive Protein 1.0 H (<1.0) mg/dL Albumin 3.4 L (3.5-5.0) g/dL 06/20/22 Range/Units 06:21 WBC 10.85 H (4.50-10.00) X 10*3/uL RBC 3.37 L (4.10-5.20) X 10*6/uL Hgb 10.5 L (12.0-15.0) g/dL Hct 33.6 L (37.2-46.3) % MCV 99.7 H (80.0-97.0) fL MCHC 31.3 L (32.0-37.0) g/dL RDW 15.2 H (11.5-14.5) % MPV 12.4 H (9.5-12.2) fL Immature Gran # 0.11 H (0.00-0.04) X 10*3/uL Monocytes # 1.02 H (0.20-1.00) X 10*3/uL Eosinophils # 0.71 H (0.04-0.35) X 10*3/uL ESR 62 H (0-30) mm/Hr Sodium (137-145) mmol/L Potassium (3.5-5.1) mmol/L Chloride (98-107) mmol/L BUN (7-17) mg/dL Creatinine (0.52-1.04) mg/dL POC Glucose (mg/dL) (70-110) mg/dL Calcium (8.4-10.2) mg/dL Alkaline Phosphatase (38-126) U/L C-Reactive Protein (<1.0) mg/dL Albumin (3.5-5.0) g/dL Microbiology - Last 24 Hours (Table) 06/17/22 09:20 Urine Culture - Final Urine,Voided Marielena glabrata Assessment and Plan (1) Osteomyelitis of right foot Current Visit: Yes Status: Acute Code(s): M86.9 - OSTEOMYELITIS, UNSPECIFIED SNOMED Code(s): [id number] Plan: 1patient with a nonhealing wound on the tip of her right 4th toe has been there for couple of weeks now in this patient who did have a abnormal MRI completed on 06/03/2019 suspicious for Osteomyelitis with destructive changes, failing outpatient oral antibiotic therapy 2blood culture had been negative 3patient has been evaluated by vascular surgical currently recommended no s urgical intervention 4patient local culture has been finalized with staph epi along with anaerobes , patient to continue the vancomycin pharmacy to dose through dialysis and oral Flagyl for anaerobic coverage , close outpatient follow-up. 5patient with a positive urine culture with yeast patient did not have any symptomatology and hardly makes any urine likely asymptomatic and no need for any antifungal at this point Time with Patient: Less than 30
[2022-06-20] MEDS: LIDOCAINE 2% URO-JET JELLY 5 ML KIT MISCELLANE SCH (14:44)
[2022-06-20 16:59] LABS: Glucose,Whole Blood 169 mg/dL (70-110)
--- NOTE | 2022-06-21 08:22 | DS ---
DISCHARGE SUMMARY DISCHARGE MEDICINES: 1. Flagyl 500 t.i.d. 2. Midodrine 5 mg before meals b.i.d. 3. Symbicort 160/4.5 two puffs b.i.d. 4. Tresiba 10 units daily. 5. Omeprazole 20 daily. 6. Levothyroxine 150 daily. 7. Levocetirizine 5 mg b.i.d. 8. Lipitor 40 daily. 9. PhosLo 1334 t.i.d. 10.Xanax 1 mg q.8. 11.Methadone 125 daily. 12.Lasix 20 mg 4 times a week. 13.Trelegy 200/62.5 one puff daily. 14.Nephro-Ann 0.8 daily. 15.Albuterol and ipratropium bromide nasal spray 2 sprays each nostril daily. 16.Eliquis 2.5 b.i.d. 17.Ammonium Lac-Hydrin topically b.i.d. 18.Lidocaine ointment topically daily. DISCHARGE DIAGNOSES: Cellulitis of the right lower leg, end-stage renal disease, on hemodialysis, osteomyelitis of the right foot, right foot infection, for which she came to the hospital, seen by Vascular Surgery. Infectious Disease consult. She was hooked up with IV vancomycin and she is going to get that for 6 weeks as she goes home. She is positive for Marielena and Clostridium perfringens and Staph epidermidis. Antibiotics per Dr. Felix to follow up as an outpatient. Await further recommendations. She used 6 weeks of antibiotics during dialysis with vancomycin. Prognosis guarded. Diet as tolerated. Condition stable. MMODL / IJN: [id number] /
--- NOTE | 2022-06-21 13:07 | PN ---
PROGRESS NOTE ADDENDUM: Right buttock pressure ulcer stage II. MMODL / IJN: [id number] /
== END 2022-06-20 18:30 | disposition home health service (06) | DRG 638 ==
LOC: EC 02:15 → 4SSUR 04:57
PROVIDERS: ADMIT Family Medicine; ATTEND Family Medicine
PROC: 5A1D70Z Performance of Urinary Filtration, Intermittent, Less than 6 Hours Per Day (ICD-10-PCS; principal; 2022-06-13)
PROC: 3E0234Z Introduction of Serum, Toxoid and Vaccine into Muscle, Percutaneous Approach (ICD-10-PCS; 2022-06-13)
PROC: 05HC33Z Insertion of Infusion Device into Left Basilic Vein, Percutaneous Approach (ICD-10-PCS; 2022-06-14)
DX: E11.69 Type 2 diabetes mellitus with other specified complication (principal); I12.0 Hypertensive chronic kidney disease with stage 5 chronic kidney disease or end stage renal disease; M86.8X7 Other osteomyelitis, ankle and foot; L03.115 Cellulitis of right lower limb; L97.419 Non-pressure chronic ulcer of right heel and midfoot with unspecified severity; J98.11 Atelectasis; N18.6 End stage renal disease; E11.22 Type 2 diabetes mellitus with diabetic chronic kidney disease; C51.9 Malignant neoplasm of vulva, unspecified; M89.8X9 Other specified disorders of bone, unspecified site; M41.9 Scoliosis, unspecified; J43.9 Emphysema, unspecified; I95.89 Other hypotension; I71.21 Aneurysm of the ascending aorta, without rupture; I48.0 Paroxysmal atrial fibrillation; L89.312 Pressure ulcer of right buttock, stage 2; H54.8 Legal blindness, as defined in USA; G89.29 Other chronic pain; R22.31 Localized swelling, mass and lump, right upper limb; F41.9 Anxiety disorder, unspecified; F17.200 Nicotine dependence, unspecified, uncomplicated; E87.70 Fluid overload, unspecified; E78.5 Hyperlipidemia, unspecified; E11.621 Type 2 diabetes mellitus with foot ulcer; E11.51 Type 2 diabetes mellitus with diabetic peripheral angiopathy without gangrene; B96.7 Clostridium perfringens [C. perfringens] as the cause of diseases classified elsewhere; B95.7 Other staphylococcus as the cause of diseases classified elsewhere; E11.42 Type 2 diabetes mellitus with diabetic polyneuropathy; D63.1 Anemia in chronic kidney disease; Z79.4 Long term (current) use of insulin; Z99.2 Dependence on renal dialysis; Z89.612 Acquired absence of left leg above knee; Z89.421 Acquired absence of other right toe(s); Z89.411 Acquired absence of right great toe; Z86.14 Personal history of Methicillin resistant Staphylococcus aureus infection; Z79.899 Other long term (current) drug therapy; Z79.891 Long term (current) use of opiate analgesic; Z79.890 Hormone replacement therapy; Z79.01 Long term (current) use of anticoagulants; Z23 Encounter for immunization; Z86.718 Personal history of other venous thrombosis and embolism; Z88.5 Allergy status to narcotic agent
CPT/HCPCS: 36410; 36415; 71250; 76937; 80048; 80053; 80202; 82565; 82728; 83036; 83540; 83550; 83605; 85025; 85610; 85652; 85730; 86140; 87040; 87070; 87075; 87077; 87086; 87186; 87205; 90471; 90715; 90935; 93923; 94640; 94760; 96365; 96366; 99284

== ENCOUNTER 2022-07-30 02:52 | Inpatient (IN) | payer MEDICARE, OTHER ==
[2022-07-30] MEDS ORDERED: ROCURONIUM 10 MG/ML (5 ML VIAL) IV STA (03:06)
[2022-07-30 03:32] LABS: Basophils # (A) 0.4 k/uL (0-0.2); Basophils % (A) 2 %; Eosinophils # (A) 0.4 k/uL (0-0.7); Eosinophils % (A) 2 %; Hypochromasia Marked; Lymphocytes # (A) 9.6 k/uL (1.0-4.8); Lymphocytes % (A) 48 %; MCH 32.7 pg (25.0-35.0); MCHC 29.1 g/dL (31.0-37.0); Macrocytosis Marked; Monocytes # (A) 0.9 k/uL (0-1.0); Monocytes % (A) 4 %; Neutrophils # (A) 8.2 k/uL (1.3-7.7); Neutrophils % (A) 41 %; Platelet Count 120 k/uL (150-450); RBC 4.27 m/uL (3.80-5.40); WBC 20.1 k/uL (3.8-10.6)
[2022-07-30 03:42] LABS: MCV 112.4 fL (80.0-100.0)
[2022-07-30 03:49] LABS: Glucose,Whole Blood 377 mg/dL (70-110)
[2022-07-30] MEDS ORDERED: SODIUM CHLORIDE 0.9% 500 ML 500 ML IV STA (03:55)
[2022-07-30] MEDS ORDERED: CALCIUM CHLORIDE 100 MG/ML 10 ML SYRINGE IVP STA (03:59)
[2022-07-30 04:06] LABS: Albumin 2.6 g/dL (3.5-5.0); Calcium 7.2 mg/dL (8.4-10.2); Potassium 4.2 mmol/L (3.5-5.1); Total Bilirubin 0.5 mg/dL (0.2-1.3); Total Protein 5.3 g/dL (6.3-8.2)
[2022-07-30 04:12] LABS: ABG Base Excess -17.9 mmol/L; ABG HCO3 14 mmol/L (21-25); ABG Oxygen Saturation 87.2 % (94-97); ABG PCO2 62 mmHg (35-45); ABG PO2 84 mmHg (83-108); ABG TCO2 16 mmol/L (19-24); Allen Test Performed? Yes
[2022-07-30 04:41] LABS: ABG PH 6.96 (7.35-7.45)
--- NOTE | 2022-07-30 04:43 | XR ---
EXAMINATION TYPE: XR chest 1V portable DATE OF EXAM: 07/30/2022 COMPARISON: 03/02/2022 HISTORY: Respiratory failure TECHNIQUE: Single view FINDINGS: There is endotracheal tube which appears to be 1.5 cm extending into the left mainstem bron chus. There is some diffuse airspace infiltrate in the left upper lobe. There is some mild atelectas is at the lung bases. No obvious heart failure. There is nasogastric tube in the gastric fundus. IMPRESSION: Malposition of the endotracheal tube and should be pulled back 5 cm. Left side pneumonia mainly in the left upper lobe. No obvious heart failure. Pneumonic infiltrates an d atelectasis are a change compared to old exam.
[2022-07-30 04:44] LABS: INR 1.4 (<1.2); Prothrombin Time 14.5 sec (9.0-12.0)
--- NOTE | 2022-07-30 05:11 | CT ---
EXAMINATION TYPE: CT brain jose montez con DATE OF EXAM: 07/30/2022 COMPARISON: 03/02/2022 CT brain HISTORY: Pain CT DLP: 1700.3 mGycm Automated exposure control for dose reduction was used. There is cerebral cortical atrophy. There is no mass effect or midline shift. No sign of intracranial hemorrhage. The calvarium is intact. Skull base is intact. There is normal aeration of the mastoid s inuses. There is mild mucosal thickening in the maxillary sinuses. Sella turcica appears normal. The cervical vertebra have normal spacing and alignment. Posterior element are intact. No compression fracture. Facet joints are intact there is mild osteopenia. Prevertebral soft tissues are intact sku ll base is intact. IMPRESSION: Cerebral atrophy. No acute intracranial abnormality. No significant change. Negative CT scan cervical spine. No fracture.
--- NOTE | 2022-07-30 05:13 | XR ---
EXAMINATION TYPE: XR chest 1V portable DATE OF EXAM: 07/30/2022 COMPARISON: Today HISTORY: Tube placement TECHNIQUE: Single view FINDINGS: Endotracheal tube is 13 mm from the indigo. There is diffuse pneumonia left upper lobe. The re is some mild atelectasis at the lung bases. There is nasogastric tube in the stomach. IMPRESSION: Endotracheal tube is low and could be pulled back 2 cm. Pneumonia and atelectasis without change.
[2022-07-30 05:15] LABS: Anisocytosis (M) Present
[2022-07-30] MEDS ORDERED: PNEUMONIA PROTOCOL UTILIZED 1 EACH MISC PO PRN (05:17)
[2022-07-30] MEDS ORDERED: AZITHROMYCIN 500 MG in SODIUM CHLORIDE 0.9% 250 ML IVPB STA (05:17)
--- NOTE | 2022-07-30 05:21 | ED ---
CPR HPI - General Chief Complaint: Cardiac Arrest/CPR Stated Complaint: Cardiac Arrest Time Seen by Provider: 07/30/22 02:55 Source: patient Mode of arrival: ambulatory Limitations: no limitations - History of Present Illness Initial Comments: 72-year-old female with past medical history of A. fib on Eliquis, COPD, diabetes, end-stage renal disease on hemodialysis Friday, and Friday who presents to the emergency department in cardiac arrest. Daughter does present to the emergency department and provides a history. History also obtained from EMS. It is reported that the patient was complaining of some shortness of breath. Daughter walked out of the room to get her nebulizer. When she returned the patient was unresponsive. She lowered her to the floor and called 911. EMS arrived and found the patient to be in PE a. CPR was st arted. She received 3 epi and 1 mg of Narcan as the patient is on methadone and daughter was concerned that the patient may have overdosed. She remained in PEA she arrived at the hospital. Daughter states that she has not missed any of her dialysis sessions. She has not had any fevers or cough. She was complaining chest pain. HPI is limited because the patient's current status - Related Data Home Medications Medication Instructions Recorded Confirmed ALPRAZolam [Xanax] 1 mg PO Q8H PRN 04/18/20 07/30/22 Atorvastatin [Lipitor] 40 mg PO HS 04/18/20 07/30/22 Calcium Acetate [PhosLo] 1,334 mg PO TID-W/MEALS 04/18/20 07/30/22 Insulin Degludec [Tresiba 10 units SQ DAILY 04/18/20 07/30/22 Flextouch U-100 Pen] Levocetirizine Dihydrochloride 5 mg PO BID 04/18/20 07/30/22 Levothyroxine Sodium [Synthroid] 150 mcg PO DAILY 04/18/20 07/30/22 Methadone HCl [Methadone Intensol] 125 mg PO DAILY 04/18/20 07/30/22 Omeprazole 20 mg PO DAILY 04/18/20 07/30/22 Furosemide [Lasix] 20 mg PO SUMOWEFR 05/20/20 07/30/22 Insulin Lispro [humaLOG Kwikpen] See Protocol SQ AC-TID 05/20/20 07/30/22 Apixaban [Eliquis] 2.5 mg PO BID 12/05/20 07/30/22 Ammonium Lactate Lotion 1 applic TOPICAL BID PRN 08/28/21 07/30/22 [Lac-Hydrin 12% Lotion] Lidocaine 5% Oint [Xylocaine 5% 1 applic TOPICAL BID 08/28/21 07/30/22 Oint] Vit C/E/Zn/Coppr/Lutein/Zeaxan 2 cap PO DAILY 08/28/21 07/30/22 [Preservision Areds 2 Softgel] Fluticasone/Umeclidin/Vilanter 1 puff INHALATION RT-DAILY 01/01/22 07/30/22 [Trelegy Ellipta 200-62.5-25] Nephro-Ann 0.8mg 1 cap PO DAILY 01/01/22 07/30/22 Cholecalciferol [Vitamin D3 (25 50 mcg PO DAILY 02/12/22 07/30/22 Mcg = 1000 Iu)] Ipratropium [place] 0.06%Nasal 2 spr EA NOSTRIL QID PRN 06/13/22 07/30/22 [Atrovent Nasal 0.06%] Previous Rx's Medication Instructions Recorded Budesonide-Formot 160-4.5 Mcg 2 puff INHALATION RT-BID 30 Days 06/20/22 [Symbicort 160-4.5 Mcg Inhaler] #1 each Midodrine [ProAmatine] 5 mg PO AC-BID 30 Days #60 tab 06/20/22 Allergies Allergy/AdvReac Type Severity Reaction Status Date / Time pentazocine [From Kimmie] AdvReac Unknown Verified 07/30/22 07:41 Review of Systems ROS Statement: Those systems with pertinent positive or pertinent negative responses have been documented in the HPI. ROS Other: All systems not noted in ROS Statement are negative. Past Medical History Past Medical History: Atrial Fibrillation, Cancer, COPD, Diabetes Mellitus, Eye Disorder, Hyperlipidemia, Hypertension, Renal Disease, Vascular Disorder Additional Past Medical History / Comment(s): Recent vulvar cancer with surgery, IDDM type II, neuropathy, ESRD with hemodialysis T//, kidney cysts, anemia, PVD/L AKA, pt thinks DVTs R leg/L arm, past R leg wound, macular degeneration bilaterally/legally blind, chronic back pain, scoliosis, History of Any Multi-Drug Resistant Organisms: MRSA Date of last positivie culture/infection: 2015 MDRO Source:: left leg Past Surgical History: Adenoidectomy, Orthopedic Surgery, Tonsillectomy Additional Past Surgical History / Comment(s): Recent total vulvectomy at [facility] in [facility], L arm dialysis graft/multiple surgeries to repair, R arm fistula, L AKA, L chest port, surgery on L arm and R leg pt thinks to remove blood clots, vulva surgery Past Anesthesia/Blood Transfusion Reactions: No Reported Reaction Additional Past Anesthesia/Blood Transfusion Reaction / Comment(s): no problems with prior blood transfusions Past Psychological History: Anxiety Smoking Status: Current every day smoker, Light tobacco smoker Past Alcohol Use History: None Reported Past Drug Use History: None Reported - Past Family History Mother Additional Family Medical History / Comment(s): Mother of liver cirrhosis at the age of 34yrs. Father Family Medical History: Eye Disorder Additional Family Medical History / Comment(s): Macular degeneration. He at age 93 family Family Medical History: Unable to Obtain General Exam Limitations: altered mental status General appearance: obtunded Head exam: Present: atraumatic, normocephalic, normal inspection Pupils: Present: other (dilalated, non-reactive) ENT exam: Present: mucous membranes dry Respiratory exam: Present: other (no spontenous respirations) Cardiovascular Exam: Present: other (no heart tones or palpable pulse) GI/Abdominal exam: Present: soft, normal bowel sounds. Absent: distended, tenderness, guarding, rebound, rigid Extremities exam: Present: other (left aka) Skin exam: Present: pallor Course Vital Signs 07/30/22 07/30/22 07/30/22 02:52 02:55 03:00 Pulse Rate 122 H 120 H Respiratory 14 16 Rate Blood Pressure 129/68 115/80 O2 Sat by Pulse 94 L 97 Oximetry Fraction of 100 Inspired Oxygen (FIO2) 07/30/22 07/30/22 07/30/22 03:10 03:20 03:25 Pulse Rate 122 H 118 H 118 H Respiratory 16 16 16 Rate Blood Pressure 111/82 108/79 103/78 O2 Sat by Pulse 97 97 Oximetry Fraction of Inspired Oxygen (FIO2) 07/30/22 07/30/22 07/30/22 03:35 03:41 03:45 Pulse Rate 116 H 113 H 114 H Respiratory 16 16 16 Rate Blood Pressure 103/74 102/74 103/73 O2 Sat by Pulse 98 99 Oximetry Fraction of Inspired Oxygen (FIO2) 07/30/22 07/30/22 07/30/22 03:56 04:10 04:22 Pulse Rate 111 H 110 H 109 H Respiratory 16 Rate Blood Pressure 95/71 104/82 O2 Sat by Pulse 100 99 99 Oximetry Fraction of Inspired Oxygen (FIO2) 07/30/22 07/30/22 07/30/22 04:27 04:30 04:40 Pulse Rate 106 H 111 H 107 H Respiratory 29 H 16 Rate Blood Pressure 97/75 O2 Sat by Pulse 96 98 99 Oximetry Fraction of Inspired Oxygen (FIO2) 07/30/22 07/30/22 07/30/22 04:50 05:00 05:30 Pulse Rate 107 H 107 H 106 H Respiratory 16 28 H 28 H Rate Blood Pressure 101/69 101/69 93/66 O2 Sat by Pulse 98 98 97 Oximetry Fraction of Inspired Oxygen (FIO2) Procedures - ABG Interpretation Ph: 6.9 PCO2: 62 PO2: 83.5 Bicarbonate: 14 Interpretation: respiratory acidosis, metabolic acidosis - Central Line Placement Right Femoral Consent Obtained: emergent situation Patient Placed on Monitor/Pulse Ox: Yes MD Prep: mask, gown, gloves Central Line Prep: Chlorhexidine scrub, sterile drapes applied Ultrasound Used for Placement: Yes Central Line Lumen Inserted: triple Bloods Obtained for Lab: Yes Central Line Position: good blood return, all ports aspirated, flushed, capped, sutured in place with nylon Dressing Applied: Tegaderm Patient Tolerated Procedure: well, no complications Complications: none - Intubation Paralytic: Rocuronium Mg Given: 50 Laryngoscope: fiber optic video scope Size: 3 ET Tube Size: 7.5 ET Tube Uncuffed: No Tube Secured Depth (cm): 24 Tube Secured Location: lips Tube Placement Confirmation: visualized tube passing through cords, equal breath sounds bilaterally, no breath sounds over epigastrium, confirmation by capnometry Patient Tolerated Procedure: well, no complications Intubation Complications: none Medical Decision Making - Medical Decision Making Was pt. sent in by a medical professional or institution (, PA, YOKE SETTER, urgent care, hospital, or usp...) When possible be specific @ -No Did you speak to anyone other than the patient for history (EMS, parent, family, police, friend...)? What history was obtained from this source @ -EMS, daughter Did you review nursing and triage notes (agree or disagree)? Why? @ -I reviewed and agree with nursing and triage notes Were old charts reviewed (outside hosp., previous admission, EMS record, old EKG, old radiological studies, urgent care reports/EKG's, usp records)? Report findings @ -old charts were reviewed Differential Diagnosis (chest pain, altered mental status, abdominal pain women, abdominal pain men, vaginal bleeding, weakness, fever, dyspnea, syncope, headache, dizziness, GI bleed, back pain, seizure, CVA, palpatations, mental health, musculoskeletal)? @ -MN, CVA, hyperkalemia, PE, respiratory arrest EKG interpreted by me (3pts min.).e @ -As above X-rays interpreted by me (1pt min.). @ -Yes CT interpreted by me (1pt min.). @ -Yes U/S interpreted by me (1pt. min.). @ -None done What testing was considered but not performed or refused? (CT, X-rays, U/S, labs)? Why? @ -None What meds were considered but not given or refused? Why? @ -None Did you discuss the management of the patient with other professionals (professionals i.e. , PA, YOKE SETTER, lab, RT, psych nurse, social worker clinical, salvage winder, teacher, loss prevention officer, case maker)? Give summary @ -Dr. Bay, Dr. Mcnair Was smoking cessation discussed for >3mins.? @ -No Was critical care preformed (if so, how long)? @ -yes, 48 minutes Were there social determinants of health that impacted care today? How? (Homelessness, low income, unemployed, alcoholism, drug addiction, transportation, low edu. Level, literacy, decrease access to med. care, snf, rehab)? @ -No Was there de-escalation of care discussed even if they declined (Discuss DNR or withdrawal of care, Hospice)? DNR status @ -Yes, declined What co-morbidities impacted this encounter? (DM, HTN, Smoking, COPD, CAD, Cancer, CVA, ARF, Chemo, Hep., AIDS, mental health diagnosis, sleep apnea, morbid obesity)? @ -ESRD on HD, afib, htn, hld Was patient admitted / discharged? Hospital course, mention meds given and route, prescriptions, significant lab abnormalities, going to OR and other pertinent info. @ -Upon arrival patient is placed into trauma 1. A thorough history and physical exam is performed. Patient is being bagged. She appears to have a gag reflex. She is given 50 mg of rocuronium and intubated with a 7-1/2 ET tube, 24 cm at the gum. Pulse check performed which does demonstrate normal sinus rhythm with a wide complex. EKG is obtained. Due to widened QRS the patient is given 1 g of calcium chloride. Laboratory studies are obtained. Central line is placed in the patient's right groin. Laboratory studies are reviewed and demonstrated white count of 20.1. Creatinine 5.7. Troponin of 0.157. Trachea demonstrates left-sided pneumonia. Tube is retracted. CT of the brain demonstrates no acute process. I did discuss patient's care with Dr. Bay and Dr. Mcnair. Antibiotics are administered and the patient is taken to the ICU in stable condition Undiagnosed new problem with uncertain prognosis? @ -Yes Drug Therapy requiring intensive monitoring for toxicity (Heparin, Nitro, Insulin, Cardizem)? @ -No Were any procedures done? @ -Intubation, central line Diagnosis/symptom? @ -acute cardiac arrest, PNA Acute, or Chronic, or Acute on Chronic? @ -acute Uncomplicated (without systemic symptoms) or Complicated (systemic symptoms)? @ -complicated Side effects of treatment? @ -No Exacerbation, Progression, or Severe Exacerbation? @ -No Poses a threat to life or bodily function? How? (Chest pain, USA, MN, pneumonia, PE, COPD, DKA, ARF, appy, cholecystitis, CVA, Diverticulitis, Homicidal, Suicidal, threat to staff... and all critical care pts) @ -yes - Lab Data Result diagrams: 07/31/22 02:25 07/31/22 02:25 Lab Results 07/30/22 07/30/22 07/30/22 Range/Units 03:12 03:15 03:44 WBC 20.1 H (3.8-10.6) k/uL RBC 4.27 (3.80-5.40) m/uL Hgb 14.0 (11.4-16.0) gm/dL Hct 48.0 H (34.0-46.0) % MCV 112.4 H D (80.0-100.0) fL MCH 32.7 (25.0-35.0) pg MCHC 29.1 L (31.0-37.0) g/dL RDW 14.0 (11.5-15.5) % Plt Count 120 L (150-450) k/uL MPV 12.0 Neutrophils % 41 % Lymphocytes % 48 % Monocytes % 4 % Eosinophils % 2 % Basophils % 2 % Neutrophils # 8.2 H (1.3-7.7) k/uL Lymphocytes # 9.6 H (1.0-4.8) k/uL Monocytes # 0.9 (0-1.0) k/uL Eosinophils # 0.4 (0-0.7) k/uL Basophils # 0.4 H (0-0.2) k/uL Manual Slide Review Performed Hypochromasia Marked Anisocytosis (manual) Present Macrocytosis Marked A PT (9.0-12.0) sec INR (<1.2) APTT (22.0-30.0) sec Sample Site right radial ABG pH 6.96 L* (7.35-7.45) ABG pCO2 62 H (35-45) mmHg ABG pO2 84 (83-108) mmHg ABG HCO3 14 L (21-25) mmol/L ABG Total CO2 16 L (19-24) mmol/L ABG O2 Saturation 87.2 L (94-97) % ABG Base Excess -17.9 mmol/L Iraj Test Yes FiO2 100 % Sodium 140 (137-145) mmol/L Potassium 4.2 (3.5-5.1) mmol/L Chloride 102 (98-107) mmol/L Carbon Dioxide 12 L (22-30) mmol/L Anion Gap 26 mmol/L BUN 37 H (7-17) mg/dL Creatinine 5.76 H (0.52-1.04) mg/dL Est GFR (CKD-EPI)AfAm 8 (>60 ml/min/1.73 sqM) Est GFR (CKD-EPI)NonAf 7 (>60 ml/min/1.73 sqM) Glucose 362 H (74-99) mg/dL POC Glucose (mg/dL) (70-110) mg/dL POC Glu Mixer Foam Rubber ID Plasma Lactic Acid Koby (0.7-2.0) mmol/L Calcium 7.2 L (8.4-10.2) mg/dL Phosphorus (2.5-4.5) mg/dL Magnesium (1.6-2.3) mg/dL Total Bilirubin 0.5 (0.2-1.3) mg/dL AST 76 H (14-36) U/L ALT 48 H (4-34) U/L Alkaline Phosphatase 188 H (38-126) U/L Troponin I (0.000-0.034) ng/mL NT-Pro-B Natriuret Pep pg/mL Total Protein 5.3 L (6.3-8.2) g/dL Albumin 2.6 L (3.5-5.0) g/dL 07/30/22 07/30/22 07/30/22 Range/Units 03:44 03:44 03:44 WBC (3.8-10.6) k/uL RBC (3.80-5.40) m/uL Hgb (11.4-16.0) gm/dL Hct (34.0-46.0) % MCV (80.0-100.0) fL MCH (25.0-35.0) pg MCHC (31.0-37.0) g/dL RDW (11.5-15.5) % Plt Count (150-450) k/uL MPV Neutrophils % % Lymphocytes % % Monocytes % % Eosinophils % % Basophils % % Neutrophils # (1.3-7.7) k/uL Lymphocytes # (1.0-4.8) k/uL Monocytes # (0-1.0) k/uL Eosinophils # (0-0.7) k/uL Basophils # (0-0.2) k/uL Manual Slide Review Hypochromasia Anisocytosis (manual) Macrocytosis PT (9.0-12.0) sec INR (<1.2) APTT (22.0-30.0) sec Sample Site ABG pH (7.35-7.45) ABG pCO2 (35-45) mmHg ABG pO2 (83-108) mmHg ABG HCO3 (21-25) mmol/L ABG Total CO2 (19-24) mmol/L ABG O2 Saturation (94-97) % ABG Base Excess mmol/L Iraj Test FiO2 % Sodium (137-145) mmol/L Potassium (3.5-5.1) mmol/L Chloride (98-107) mmol/L Carbon Dioxide (22-30) mmol/L Anion Gap mmol/L BUN (7-17) mg/dL Creatinine (0.52-1.04) mg/dL Est GFR (CKD-EPI)AfAm (>60 ml/min/1.73 sqM) Est GFR (CKD-EPI)NonAf (>60 ml/min/1.73 sqM) Glucose (74-99) mg/dL POC Glucose (mg/dL) (70-110) mg/dL POC Glu Mixer Foam Rubber ID Plasma Lactic Acid Koby 9.8 H* (0.7-2.0) mmol/L Calcium (8.4-10.2) mg/dL Phosphorus 9.6 H* (2.5-4.5) mg/dL Magnesium 2.9 H (1.6-2.3) mg/dL Total Bilirubin (0.2-1.3) mg/dL AST (14-36) U/L ALT (4-34) U/L Alkaline Phosphatase (38-126) U/L Troponin I 0.157 H* (0.000-0.034) ng/mL NT-Pro-B Natriuret Pep pg/mL Total Protein (6.3-8.2) g/dL Albumin (3.5-5.0) g/dL 07/30/22 07/30/22 07/30/22 Range/Units 03:44 03:47 03:48 WBC (3.8-10.6) k/uL RBC (3.80-5.40) m/uL Hgb (11.4-16.0) gm/dL Hct (34.0-46.0) % MCV (80.0-100.0) fL MCH (25.0-35.0) pg MCHC (31.0-37.0) g/dL RDW (11.5-15.5) % Plt Count (150-450) k/uL MPV Neutrophils % % Lymphocytes % % Monocytes % % Eosinophils % % Basophils % % Neutrophils # (1.3-7.7) k/uL Lymphocytes # (1.0-4.8) k/uL Monocytes # (0-1.0) k/uL Eosinophils # (0-0.7) k/uL Basophils # (0-0.2) k/uL Manual Slide Review Hypochromasia Anisocytosis (manual) Macrocytosis PT 14.5 H (9.0-12.0) sec INR 1.4 H (<1.2) APTT 29.0 (22.0-30.0) sec Sample Site ABG pH (7.35-7.45) ABG pCO2 (35-45) mmHg ABG pO2 (83-108) mmHg ABG HCO3 (21-25) mmol/L ABG Total CO2 (19-24) mmol/L ABG O2 Saturation (94-97) % ABG Base Excess mmol/L Iraj Test FiO2 % Sodium (137-145) mmol/L Potassium (3.5-5.1) mmol/L Chloride (98-107) mmol/L Carbon Dioxide (22-30) mmol/L Anion Gap mmol/L BUN (7-17) mg/dL Creatinine (0.52-1.04) mg/dL Est GFR (CKD-EPI)AfAm (>60 ml/min/1.73 sqM) Est GFR (CKD-EPI)NonAf (>60 ml/min/1.73 sqM) Glucose (74-99) mg/dL POC Glucose (mg/dL) 377 H (70-110) mg/dL POC Glu Mixer Foam Rubber ID Anderson Storey Plasma Lactic Acid Koby (0.7-2.0) mmol/L Calcium (8.4-10.2) mg/dL Phosphorus (2.5-4.5) mg/dL Magnesium (1.6-2.3) mg/dL Total Bilirubin (0.2-1.3) mg/dL AST (14-36) U/L ALT (4-34) U/L Alkaline Phosphatase (38-126) U/L Troponin I (0.000-0.034) ng/mL NT-Pro-B Natriuret Pep 3630 pg/mL Total Protein (6.3-8.2) g/dL Albumin (3.5-5.0) g/dL - EKG Data EKG Comments: EKG completed at 255 demonstrates sinus rhythm with a wide complex. Rate of 135. QRS to 13. QTC of 434. There is ST segment elevation in V2 V3. This is right after pulses are regained Repeat EKG is completed after patient maintains her own heart rate. It demonstrates a tachycardia with a rate of 114. IA interval 63. QRS 170. QTC of 386. There is a left bundle branch block. Does not meet sgarbossa criteria Critical Care Time Critical Care Time: Yes Critical Care Time: 48 minutes Disposition Clinical Impression: Cardiac arrest, CAP (community acquired pneumonia), ESRD (end stage renal disease) on dialysis Disposition: ADMITTED IP TO THIS HOSP Is patient prescribed a controlled substance at d/c from ED?: No Time of Disposition: 05:21 Decision to Admit Reason: Admit from EC Decision Date: 07/30/22 Decision Time: 05:21
[2022-07-30] MEDS ORDERED: NALOXONE 0.4 MG/ML 1 ML VIAL IV PRN (05:22)
--- NOTE | 2022-07-30 05:25 | P.HPIM ---
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 fib on Eliquis, history of cataracts, who was brought to the emergency room after cardiac arrest. History was obtained from EMS and from the patient's daughter. The patient was reportedly at home doing well when her daughter helped her onto the toilet and subsequently found her dyspneic and dizzy. She then quickly became unresponsive at which point the daughter activated EMS. Upon EMS arrival, the patient was noted to be in PEA arrest. She was given CPR but was not intubated in the field. Upon arrival at the emergency room, the patient was noted to have a pulse. She was intubated and placed on mechanical ventilation. The patient had been at her baseline over the past few days with no additional complaints as per the daughter. Case was discussed with the ED privoder in detail. The ED provider also discussed the case with the marketing development specialist. Review of systems: Unable to obtain due to patient being on mechanical ventilation Physical examination: Vital signs reviewed General: Intubated female, no distress, appears at stated age, obese Derm: no unusual rashes/lesions, warm Head: atraumatic, normocephalic, symmetric Eyes: Anicteric sclera, bilateral cataracts with minimally responsive pupils ENT: Nose and ears atraumatic Neck: No cervical lymphadenopathy, trachea midline, supple Mouth: no lip lesion Cardiovascular: S1S2 reg, no murmur, positive dorsalis pedis pulse bilateral, no edema Lungs: CTA bilateral, no rhonchi, no rales Abdominal: soft, nontender to palpation, no guarding Ext: no gross muscle atrophy, no contractures, left AKA, right foot first and second toe amputation with third and fourth toe ulcers with a right heel ulcer all stage II, R femoral central venous catheter in place Neuro: Unable to assess, patient on mechanical ventilation with sedation Psych: Unable to assess Assessment: Cardiac arrest Hypoxic and hypercapnic respiratory failure Elevated troponin Community acquired pneumonia Thrombocytopenia Chronic conditions: A. fib on Eliquis, ESRD and hemodialysis, Type 2 DM Imaging: Chest x-ray revealed left-sided pneumonia largely in the left upper lobe. CT brain and C-spine without contrast was unremarkable. EKG in the emergency room as reviewed by me revealed a left bundle branch block at 114 bpm. Data Review: Laboratory evaluation was reviewed with WBC count 20.1, hemoglobin 14.0, platelets 120, INR 1.4, ABG pH 6.96, pCO2 62, ABG O2 saturation 87.2%, sodium 140, potassium 4.2, CO2 12, BUN 37, creatinine 5.76, glucose 362, AST 76, ALT 48, alk phos 188, troponin 0.157, albumin 2.6 Plan: Continue with mechanical ventilation Cardiac montoring Urologic Nurse consulted Nephrology consult for dialysis resumption Continue to trend troponin DVT prophylaxis: Hepairn subq The patient is admitted with an anticipated greater than 2 midnight stay for evaluation of cardiac arrest CODE STATUS: Full Code Discussed with: daughter Anticipated discharge place: Home Review of Systems ROS unobtainable: due to endotracheal tube Past Medical History Past Medical History: Atrial Fibrillation, Cancer, COPD, Diabetes Mellitus, Eye Disorder, Hyperlipidemia, Hypertension, Renal Disease, Vascular Disorder Additional Past Medical History / Comment(s): Recent vulvar cancer with surgery, IDDM type II, neuropathy, ESRD with hemodialysis T//, kidney cysts, anemia, PVD/L AKA, pt thinks DVTs R leg/L arm, past R leg wound, macular degeneration bilaterally/legally blind, chronic back pain, scoliosis, History of Any Multi-Drug Resistant Organisms: MRSA Date of last positivie culture/infection: 2015 MDRO Source:: left leg Past Surgical History: Adenoidectomy, Orthopedic Surgery, Tonsillectomy Additional Past Surgical History / Comment(s): Recent total vulvectomy at [facility] in [facility], L arm dialysis graft/multiple surgeries to repair, R arm fistula, L AKA, L chest port, surgery on L arm and R leg pt thinks to remove blood clots, vulva surgery Past Anesthesia/Blood Transfusion Reactions: No Reported Reaction Additional Past Anesthesia/Blood Transfusion Reaction / Comment(s): no problems with prior blood transfusions Past Psychological History: Anxiety Smoking Status: Current every day smoker, Light tobacco smoker Past Alcohol Use History: None Reported Past Drug Use History: None Reported - Past Family History Mother Additional Family Medical History / Comment(s): Mother of liver cirrhosis at the age of 34yrs. Father Family Medical History: Eye Disorder Additional Family Medical History / Comment(s): Macular degeneration. He at age 93 family Family Medical History: Unable to Obtain (due to mental status) Medications and Allergies Home Medications Medication Instructions Recorded Confirmed Type ALPRAZolam [Xanax] 1 mg PO Q8H PRN 04/18/20 06/13/22 History Atorvastatin [Lipitor] 40 mg PO HS 04/18/20 06/13/22 History Calcium Acetate [PhosLo] 1,334 mg PO TID-W/MEALS 04/18/20 06/13/22 History Insulin Degludec [Tresiba 10 units SQ DAILY 04/18/20 06/13/22 History Flextouch U-100 Pen] Levocetirizine Dihydrochloride 5 mg PO BID 04/18/20 06/13/22 History Levothyroxine Sodium [Synthroid] 150 mcg PO DAILY 04/18/20 06/13/22 History Methadone HCl [Methadone Intensol] 125 mg PO DAILY 04/18/20 06/13/22 History Omeprazole 20 mg PO DAILY 04/18/20 06/13/22 History Furosemide [Lasix] 20 mg PO SUMOWEFR 05/20/20 06/13/22 History Insulin Lispro [humaLOG Kwikpen] See Protocol SQ AC-TID 05/20/20 06/13/22 History Apixaban [Eliquis] 2.5 mg PO BID 12/05/20 06/13/22 History Ammonium Lactate Lotion 1 applic TOPICAL BID PRN 08/28/21 06/13/22 History [Lac-Hydrin 12% Lotion] Lidocaine 5% Oint [Xylocaine 5% 1 applic TOPICAL BID 08/28/21 06/13/22 History Oint] Vit C/E/Zn/Coppr/Lutein/Zeaxan 2 cap PO DAILY 08/28/21 06/13/22 History [Preservision Areds 2 Softgel] Fluticasone/Umeclidin/Vilanter 1 puff INHALATION RT-DAILY 01/01/22 06/13/22 History [Trelegy Ellipta 200-62.5-25] Nephro-Ann 0.8mg 1 cap PO DAILY 01/01/22 06/13/22 History Cholecalciferol [Vitamin D3 (25 50 mcg PO DAILY 02/12/22 06/13/22 History Mcg = 1000 Iu)] Ipratropium [place] 0.06%Nasal 2 spr EA NOSTRIL QID PRN 06/13/22 06/13/22 History [Atrovent Nasal 0.06%] Budesonide-Formot 160-4.5 Mcg 2 puff INHALATION RT-BID 30 Days 06/20/22 Rx [Symbicort 160-4.5 Mcg Inhaler] #1 each Midodrine [ProAmatine] 5 mg PO AC-BID 30 Days #60 tab 06/20/22 Rx metroNIDAZOLE [Flagyl] 500 mg PO TID #90 tab 06/20/22 Rx Allergies Allergy/AdvReac Type Severity Reaction Status Date / Time pentazocine [From Kimmie] AdvReac Unknown Verified 06/13/22 08:46 Physical Exam Vitals: Vital Signs Pulse Resp BP Pulse Ox FiO2 07/30/22 03:56 111 H 16 95/71 100 07/30/22 03:45 114 H 16 103/73 99 07/30/22 03:41 113 H 16 102/74 98 07/30/22 03:35 116 H 16 103/74 07/30/22 03:25 118 H 16 103/78 07/30/22 03:20 118 H 16 108/79 97 07/30/22 03:15 100 07/30/22 03:10 122 H 16 111/82 97 07/30/22 03:00 120 H 16 115/80 97 07/30/22 02:55 100 07/30/22 02:52 122 H 14 129/68 94 L Intake and Output 07/29/22 07/29/22 07/30/22 14:59 22:59 06:59 Intake Total 0.34 Balance 0.34 Intake: Intake, IV Titration 0.34 Amount propofoL 1,000 mg In 0.34 Empty Bag 1 bag @ 5 MCG/ KG/MIN 2.041 mls/hr IV . Q24H [place] Rx#:[id number] Other: Weight 68.039 kg Results CBC & Chem 7: 07/30/22 03:12 07/30/22 03:44 Labs: Abnormal Lab Results - Last 24 Hours (Table) 07/30/22 07/30/22 07/30/22 Range/Units 03:12 03:15 03:44 WBC 20.1 H (3.8-10.6) k/uL Hct 48.0 H (34.0-46.0) % MCV 112.4 H D (80.0-100.0) fL MCHC 29.1 L (31.0-37.0) g/dL Plt Count 120 L (150-450) k/uL Macrocytosis Marked A ABG pH 6.96 L* (7.35-7.45) ABG pCO2 62 H (35-45) mmHg ABG HCO3 14 L (21-25) mmol/L ABG Total CO2 16 L (19-24) mmol/L ABG O2 Saturation 87.2 L (94-97) % Carbon Dioxide 12 L (22-30) mmol/L BUN 37 H (7-17) mg/dL Creatinine 5.76 H (0.52-1.04) mg/dL Glucose 362 H (74-99) mg/dL POC Glucose (mg/dL) (70-110) mg/dL Calcium 7.2 L (8.4-10.2) mg/dL AST 76 H (14-36) U/L ALT 48 H (4-34) U/L Alkaline Phosphatase 188 H (38-126) U/L Troponin I (0.000-0.034) ng/mL Total Protein 5.3 L (6.3-8.2) g/dL Albumin 2.6 L (3.5-5.0) g/dL 07/30/22 07/30/22 Range/Units 03:44 03:48 WBC (3.8-10.6) k/uL Hct (34.0-46.0) % MCV (80.0-100.0) fL MCHC (31.0-37.0) g/dL Plt Count (150-450) k/uL Macrocytosis ABG pH (7.35-7.45) ABG pCO2 (35-45) mmHg ABG HCO3 (21-25) mmol/L ABG Total CO2 (19-24) mmol/L ABG O2 Saturation (94-97) % Carbon Dioxide (22-30) mmol/L BUN (7-17) mg/dL Creatinine (0.52-1.04) mg/dL Glucose (74-99) mg/dL POC Glucose (mg/dL) 377 H (70-110) mg/dL Calcium (8.4-10.2) mg/dL AST (14-36) U/L ALT (4-34) U/L Alkaline Phosphatase (38-126) U/L Troponin I 0.157 H* (0.000-0.034) ng/mL Total Protein (6.3-8.2) g/dL Albumin (3.5-5.0) g/dL
[2022-07-30] MEDS ORDERED: SODIUM CHLORIDE 0.9% 1,000 ML IV SCH (05:30)
[2022-07-30] MEDS ORDERED: NOREPINEPHRIN 4 MG-0.9% NS PMX 4 MG/250 ML ML IV ONE (06:20)
[2022-07-30] MEDS ORDERED: HEPARIN SODIUM,PORCINE/PF 5,000 UNIT/0.5 ML SYRINGE SQ SCH (08:00)
[2022-07-30 08:03] LABS: ABG HCO3 12 mmol/L (21-25); ABG Oxygen Saturation 98.6 % (94-97); ABG PCO2 44 mmHg (35-45); ABG PO2 185 mmHg (83-108); ABG TCO2 14 mmol/L (19-24)
[2022-07-30 08:04] LABS: ABG PH 7.06 (7.35-7.45)
[2022-07-30] MEDS: INSULIN ASPART (NovoLOG) 100 UNIT/ML VIAL SQ SCH ×4 (08:10→19:05)
--- NOTE | 2022-07-30 08:42 | P.CNPUL ---
History of Present Illness Consult date: 07/30/22 Chief complaint: cardiac arrest History of present illness: 72-year-old female with past medical history of A. fib on Eliquis, COPD, diabetes, end-stage renal disease on hemodialysis Friday, and Friday who presents to the emergency department in cardiac arrest. Daughter does present to the emergency department and provides a history. History also obtained from EMS. It is reported that the patient was complaining of some shortness of breath. Daughter walked out of the room to get her nebulizer. When she returned the patient was unresponsive. She lowered her to the floor and called 911. EMS arrived and found the patient to be in PE a. CPR was started. She received 3 epi and 1 mg of Narcan as the patient is on methadone and daughter was concerned that the patient may have overdosed. She remained in PEA she arrived at the hospital. Daughter states that she has not missed any of her dialysis sessions. She has not had any fevers. I interviewed the daughter, and she gave me all the details regarding her history and clinical presentation. In summary, the daughter called EMS and it has station was done at home initially and subsequently the intubation process was done in the emergency department. At this point in time, the patient is unresponsive. The patient is on propofol running at 10 mcg/kg/m. After arriving to the ICU, the patient was hypotensive. She was given a bolus of 500 mL of normal saline. Following that, she was started on norepinephrine that was immediately discontinued as the patient's blood pressure stabilized. At this point in time, she is on assist-control mode of mechanical ventilation with a rate of 28, tidal volume of 450, FiO2 of 100% and PEEP of 5. I did the ventilator changes as the patient was initially at the respirator rate of 14. She was quite acidotic and she had significant respiratory acidosis. Initial blood gas showed a pH of 6.9 with a pCO2 of 62 and pO2 of 84. After making the adjustments, the pH came at 7.06 with a pCO2 of 44 and pO2 of 185. Accordingly, the FiO2 can be gradually weaned off. Lactic acid level has not been checked. This needs to be checked immediately. Troponin levels are 0.1 and 0.5 respectively 2. Initial serum bicarb was at 12. Initial potassium level was at 4.2 and current potassium level is at 5.4. Had WBC count is at 20.1 with a hemoglobin of 14 and a platelet count of 120. Chest x-ray post intubation was noted. ET tube was the and it was pulled back I around 2 cm. The patient also has diffuse infiltrates bilaterally more extensive and the left upper lobe consistent with an acute pneumonia. I came to find other the patient had osteoarthritis of the right lower extremity and she was receiving vancomycin through dialysis. She has a functioning AV fistula in the right upper extremity. She is above the amputation of the left lower extremity. I was told that her cardiac situation has been stable. I was able to the treatment ECHOCARDIOGRAM on this patient from 02/13/2022. Echocardiogram back then showed that the patient had normal LV function without any significant valvular abnormalities. She typically follows up with cardiology and she has been told that her cardiac situation is currently inactive and stable. No missed dialysis. No infection with Covid 19. Needs to be checked for Covid 19. The emergency department and it showed cerebral atrophy. No evidence of any intracranial abnormalities. No significant change compared to earlier CAT scans. CAT scan of the cervical spine showed no evidence of any fractures. Review of Systems ROS unobtainable: due to endotracheal tube Past Medical History Past Medical History: Atrial Fibrillation, Cancer, COPD, Diabetes Mellitus, Eye Disorder, Hyperlipidemia, Hypertension, Renal Disease, Vascular Disorder Additional Past Medical History / Comment(s): Recent vulvar cancer with surgery, IDDM type II, neuropathy, ESRD with hemodialysis T//, kidney cysts, anemia, PVD/L AKA, pt thinks DVTs R leg/L arm, past R leg wound, macular degeneration bilaterally/legally blind, chronic back pain, scoliosis, History of Any Multi-Drug Resistant Organisms: MRSA Date of last positivie culture/infection: 2015 MDRO Source:: left leg Past Surgical History: Adenoidectomy, Orthopedic Surgery, Tonsillectomy Additional Past Surgical History / Comment(s): Recent total vulvectomy at [facility] in [facility], L arm dialysis graft/multiple surgeries to repair, R arm fistula, L AKA, L chest port, surgery on L arm and R leg pt thinks to remove blood clots, vulva surgery Past Anesthesia/Blood Transfusion Reactions: No Reported Reaction Additional Past Anesthesia/Blood Transfusion Reaction / Comment(s): no problems with prior blood transfusions Past Psychological History: Anxiety Smoking Status: Current every day smoker, Light tobacco smoker Past Alcohol Use History: None Reported Past Drug Use History: None Reported - Past Family History Mother Additional Family Medical History / Comment(s): Mother of liver cirrhosis at the age of 34yrs. Father Family Medical History: Eye Disorder Additional Family Medical History / Comment(s): Macular degeneration. He at age 93 family Family Medical History: Unable to Obtain Medications and Allergies Home Medications Medication Instructions Recorded Confirmed Type ALPRAZolam [Xanax] 1 mg PO Q8H PRN 04/18/20 07/30/22 History Atorvastatin [Lipitor] 40 mg PO HS 04/18/20 07/30/22 History Calcium Acetate [PhosLo] 1,334 mg PO TID-W/MEALS 04/18/20 07/30/22 History Insulin Degludec [Tresiba 10 units SQ DAILY 04/18/20 07/30/22 History Flextouch U-100 Pen] Levocetirizine Dihydrochloride 5 mg PO BID 04/18/20 07/30/22 History Levothyroxine Sodium [Synthroid] 150 mcg PO DAILY 04/18/20 07/30/22 History Methadone HCl [Methadone Intensol] 1 dose PO DAILY 04/18/20 07/30/22 History Omeprazole 20 mg PO DAILY 04/18/20 07/30/22 History Furosemide [Lasix] 20 mg PO SUMOWEFR 05/20/20 07/30/22 History Insulin Lispro [humaLOG Kwikpen] See Protocol SQ AC-TID 05/20/20 07/30/22 History Apixaban [Eliquis] 2.5 mg PO BID 12/05/20 07/30/22 History Ammonium Lactate Lotion 1 applic TOPICAL BID PRN 08/28/21 07/30/22 History [Lac-Hydrin 12% Lotion] Lidocaine 5% Oint [Xylocaine 5% 1 applic TOPICAL BID 08/28/21 07/30/22 History Oint] Vit C/E/Zn/Coppr/Lutein/Zeaxan 2 cap PO DAILY 08/28/21 07/30/22 History [Preservision Areds 2 Softgel] Fluticasone/Umeclidin/Vilanter 1 puff INHALATION RT-DAILY 01/01/22 07/30/22 History [Trelegy Ellipta 200-62.5-25] Nephro-Ann 0.8mg 1 cap PO DAILY 01/01/22 07/30/22 History Cholecalciferol [Vitamin D3 (25 50 mcg PO DAILY 02/12/22 07/30/22 History Mcg = 1000 Iu)] Ipratropium [place] 0.06%Nasal 2 spr EA NOSTRIL QID PRN 06/13/22 07/30/22 History [Atrovent Nasal 0.06%] Budesonide-Formot 160-4.5 Mcg 2 puff INHALATION RT-BID 30 Days 06/20/22 07/30/22 Rx [Symbicort 160-4.5 Mcg Inhaler] #1 each Midodrine [ProAmatine] 5 mg PO AC-BID 30 Days #60 tab 06/20/22 07/30/22 Rx Allergies Allergy/AdvReac Type Severity Reaction Status Date / Time pentazocine [From Kimmie] AdvReac Unknown Verified 07/30/22 07:41 Physical Exam Vitals: Vital Signs Temp Pulse Resp BP Pulse Ox FiO2 07/30/22 08:00 96.5 F L 98 17 111/68 98 100 07/30/22 07:30 100 28 H 85/69 98 07/30/22 07:00 99 28 H 107/69 99 100 07/30/22 06:30 100 28 H 103/68 98 07/30/22 06:00 108 H 28 H 90/61 99 100 07/30/22 05:30 106 H 28 H 93/66 97 07/30/22 05:00 107 H 28 H 101/69 98 07/30/22 04:50 107 H 16 101/69 98 07/30/22 04:40 107 H 16 99 07/30/22 04:30 111 H 29 H 98 07/30/22 04:27 106 H 97/75 96 07/30/22 04:22 109 H 104/82 99 07/30/22 04:10 110 H 99 07/30/22 03:56 111 H 16 95/71 100 07/30/22 03:45 114 H 16 103/73 99 07/30/22 03:41 113 H 16 102/74 98 07/30/22 03:35 116 H 16 103/74 07/30/22 03:25 118 H 16 103/78 07/30/22 03:20 118 H 16 108/79 97 07/30/22 03:15 100 07/30/22 03:10 122 H 16 111/82 97 07/30/22 03:00 120 H 16 115/80 97 07/30/22 02:55 100 07/30/22 02:52 122 H 14 129/68 94 L Intake and Output 07/29/22 07/30/22 07/30/22 22:59 06:59 14:59 Intake Total 75.34 75 Balance 75.34 75 Intake: IV 75 75 Sodium Chloride 0.9% 1, 75 75 000 ml @ 75 mls/hr IV . [id number] [place] Rx#:[id number] Intake, IV Titration 0.34 Amount propofoL 1,000 mg In 0.34 Empty Bag 1 bag @ 5 MCG/ KG/MIN 2.041 mls/hr IV . Q24H [place] Rx#:[id number] Other: Weight 68.039 kg CONSTITUTIONAL: not Responsive at this point in time, on propofol running at 10 mcg/kg/m, intubated on a mechanical ventilator. Orotracheal and orogastric tu are both in place Head exam was generally normal. There was no scleral icterus or corneal arcus. Mucous membranes were moist. HEENT: Head is normocephalic. Pupils are equal, round. Sclerae anicteric. Mucous membranes of the mouth are moist. No JVD. No carotid bruit. The patient has thoracic kyphoscoliosis CHEST EXAMINATION: Lungs are mild crackles in the bases to auscultation. No chest wall tenderness is noted on palpation or with deep breathing. HEART EXAMINATION: Regular rate and rhythm. S1, S2 heard. No murmurs, gallops or rub. ABDOMEN: Soft, nontender. Positive bowel sounds. EXTREMITIES: marked diminished pulses in all 4 extremities noted the patient has a history of vestibulitis involving the right lower extremity. The patient has missing first and second toe in her right foot. Osteomyelitis involving the fourth toe and the heel. Upon inspection, the area seems to have healed. There is no active drainage. There is no active cellulitis at this point in time. post Left above the knee amputation NEUROLOGIC EXAMINATION: Patient is unresponsive. The patient does not respond to any verbal or painful stimulation. No facial asymmetry. Negative for cough. Negative for gag. Reflexes are down. Unable to elicit any Babinski. She is riding the mechanical ventilator at this point in time. Pupils are round 3-4 mm in size and they are sluggishly reactive to light.. Examination of the skin revealed no evidence of significant rashes, suspicious appearing nevi or other concerning lesions.Edel has only a superficial stage I lesion on her sacral area, an area of pressure ulcer. Results - Laboratory Findings CBC and BMP: 07/30/22 03:12 07/30/22 05:57 ABG ABG pH 7.06 (7.35-7.45) L* 07/30/22 07:59 ABG pCO2 44 mmHg (35-45) 07/30/22 07:59 ABG pO2 185 mmHg (83-108) H 07/30/22 07:59 ABG O2 Saturation 98.6 % (94-97) H 07/30/22 07:59 PT/INR, D-dimer PT 14.5 sec (9.0-12.0) H 07/30/22 03:47 INR 1.4 (<1.2) H 07/30/22 03:47 Abnormal lab findings: Abnormal Labs 07/30/22 07/30/22 07/30/22 03:12 03:15 03:44 WBC 20.1 H Hct 48.0 H MCV 112.4 H D MCHC 29.1 L Plt Count 120 L Neutrophils # 8.2 H Lymphocytes # 9.6 H Basophils # 0.4 H Macrocytosis Marked A PT INR ABG pH 6.96 L* ABG pCO2 62 H ABG pO2 ABG HCO3 14 L ABG Total CO2 16 L ABG O2 Saturation 87.2 L Potassium Carbon Dioxide 12 L BUN 37 H Creatinine 5.76 H Glucose 362 H POC Glucose (mg/dL) Calcium 7.2 L AST 76 H ALT 48 H Alkaline Phosphatase 188 H Troponin I Total Protein 5.3 L Albumin 2.6 L 07/30/22 07/30/22 07/30/22 03:44 03:47 03:48 WBC Hct MCV MCHC Plt Count Neutrophils # Lymphocytes # Basophils # Macrocytosis PT 14.5 H INR 1.4 H ABG pH ABG pCO2 ABG pO2 ABG HCO3 ABG Total CO2 ABG O2 Saturation Potassium Carbon Dioxide BUN Creatinine Glucose POC Glucose (mg/dL) 377 H Calcium AST ALT Alkaline Phosphatase Troponin I 0.157 H* Total Protein Albumin 07/30/22 07/30/22 07/30/22 05:57 05:57 07:59 WBC Hct MCV MCHC Plt Count Neutrophils # Lymphocytes # Basophils # Macrocytosis PT INR ABG pH 7.06 L* ABG pCO2 ABG pO2 185 H ABG HCO3 12 L ABG Total CO2 14 L ABG O2 Saturation 98.6 H Potassium 5.4 H Carbon Dioxide BUN Creatinine Glucose POC Glucose (mg/dL) Calcium AST ALT Alkaline Phosphatase Troponin I 0.531 H* Total Protein Albumin - Diagnostic Findings Chest x-ray: image reviewed Assessment and Plan Plan: Acute cardiac arrest. The patient was found in to be in PEA. This was a witnessed [id number] cardiac arrest and the exact downtime is not clear yet is quite extensive probably in the order of 40-50 minutes based on day records available to us and based on my conversation with the emergency department physician. There was return of spontaneous circulation the patient was intubated and mechanically ventilated in the emergency. Currently she is unresponsive and she is on low-dose propofol running at 10 microvascular kilogram per minute Unresponsive post cardiac arrest, rule out underlying anoxic encephalopathy Severe acidosis combination of metabolic and respiratory acidosis, initial pH was at 6.9, gradually improving Bilateral pulmonary infiltrates, rule out atypical pulmonary edema versus pneumonia. History of osteomyelitis of the right foot involving the fourth toe and heel maintain on vancomycin on outpatient basis end-stage renal disease on hemodialysis 3 times a week and the patient's been on dialysis for the past 3-4 years thoracic kyphoscoliosis diabetes mellitus hypertension peripheral vascular disease with a previous [id number] position of the left hyperlipidemia macular degeneration and the patient is legally blind cancer of the vulva chronic pain history of atrial fibrillation, paroxysmal, maintained on Eliquis COPD history of smoking Plan Discontinue the propofol and assess the patient's mental status Check a lactic acid level Hourly neurologic checks Keep the patient's hypothermic at 36C and denies applying any warming at this point in time No ventilator changes for now other than weaning down the FiO2. Keep a tidal volume of 450 the rate of 28.C Broad-spectrum antibiotics including a combination of Zosyn and vancomycin Obtain sputum Gram stain and culture Pressors if needed and the patient will be placed on norepinephrine to support the blood pressure Obtain echocardiogram Resume of the coagulation with Eliquis Troponins are minimally elevated post cardiac arrest and CPR HD today Cardiology consultation Nephrology consultation for dialysis today IV consultation Neurology consultation condition is critical and prognosis poor based above-mentioned comorbidities. We'll continue to follow. Time with Patient: Greater than 30
[2022-07-30] MEDS ORDERED: VANCOMYCIN IV PER PHARMACY 1 EACH MISC MISCELLANE PRN (09:00)
[2022-07-30 09:05] LABS: Magnesium 2.9 mg/dL (1.6-2.3)
--- NOTE | 2022-07-30 09:13 | P.NPCON ---
History of Present Illness - Reason for Consult end stage renal disease - History of Present Illness Reason for consultation: End-stage renal disease History of present illness: Patient is a 72-year-old female seen in consultation for end-stage renal disease. She is maintained on hemodialysis on Friday schedule. Patient presented to the emergency department with cardiac arrest. Patient is currently intubated. Daughter is present at bedside who provides history. Patient was complaining of shortness of breath. She had also fallen on Friday on her left side. Daughter states she took her to the bathroom and subsequently found her unresponsive. EMS was called and CPR was started. Daughter states that due to pain she may have taken an extra dose of methadone. She did received 3 rounds of epinephrine as well as a dose of Narcan. Patient is currently on propofol. She is noted to be quite acidotic with a pH of 6.96 initially and then 7.06. She is also receiving IV fluids. Patient has been receiving IV antibiotics for right lower extremity cellulitis. Potassium was 4.1 admission and is 5.4 this morning. However this was a hemolyzed sample. Chest x-ray suggestive of pneumonia. She is on IV antibiotics. Currently not on any vasopressors. Per daughter, patient has no history of coronary artery disease. She does follow with Dr. Mccoy outpatient. Vital signs are stable. General: Resting in bed. HEENT: Intubated. LUNGS: No audible rhonchi or wheezes. HEART: Rate and Rhythm are regular. ABDOMEN: Soft, no distention. EXTREMITITES: Left [id number] amputation. Right lower extremity discoloration noted. 1+ edema. Past Medical History Past Medical History: Atrial Fibrillation, Cancer, COPD, Diabetes Mellitus, Eye Disorder, Hyperlipidemia, Hypertension, Renal Disease, Vascular Disorder Additional Past Medical History / Comment(s): Recent vulvar cancer with surgery, IDDM type II, neuropathy, ESRD with hemodialysis T//, kidney cysts, anemia, PVD/L AKA, pt thinks DVTs R leg/L arm, past R leg wound, macular degeneration bilaterally/legally blind, chronic back pain, scoliosis, History of Any Multi-Drug Resistant Organisms: MRSA Date of last positivie culture/infection: 2015 MDRO Source:: left leg Past Surgical History: Adenoidectomy, Orthopedic Surgery, Tonsillectomy Additional Past Surgical History / Comment(s): Recent total vul[facility] at [facility], L arm dialysis graft/multiple surgeries to repair, R arm fistula, L AKA, L chest port, surgery on L arm and R leg pt thinks to remove blood clots, vulva surgery Past Anesthesia/Blood Transfusion Reactions: No Reported Reaction Additional Past Anesthesia/Blood Transfusion Reaction / Comment(s): no problems with prior blood transfusions Past Psychological History: Anxiety Smoking Status: Current every day smoker, Light tobacco smoker Past Alcohol Use History: None Reported Past Drug Use History: None Reported - Past Family History Mother Additional Family Medical History / Comment(s): Mother of liver cirrhosis at the age of 34yrs. Father Family Medical History: Eye Disorder Additional Family Medical History / Comment(s): Macular degeneration. He at age 93 family Family Medical History: Unable to Obtain Medications and Allergies Home Medications Medication Instructions Recorded Confirmed Type ALPRAZolam [Xanax] 1 mg PO Q8H PRN 04/18/20 07/30/22 History Atorvastatin [Lipitor] 40 mg PO HS 04/18/20 07/30/22 History Calcium Acetate [PhosLo] 1,334 mg PO TID-W/MEALS 04/18/20 07/30/22 History Insulin Degludec [Tresiba 10 units SQ DAILY 04/18/20 07/30/22 History Flextouch U-100 Pen] Levocetirizine Dihydrochloride 5 mg PO BID 04/18/20 07/30/22 History Levothyroxine Sodium [Synthroid] 150 mcg PO DAILY 04/18/20 07/30/22 History Methadone HCl [Methadone Intensol] 125 mg PO DAILY 04/18/20 07/30/22 History Omeprazole 20 mg PO DAILY 04/18/20 07/30/22 History Furosemide [Lasix] 20 mg PO SUMOWEFR 05/20/20 07/30/22 History Insulin Lispro [humaLOG Kwikpen] See Protocol SQ AC-TID 05/20/20 07/30/22 History Apixaban [Eliquis] 2.5 mg PO BID 12/05/20 07/30/22 History Ammonium Lactate Lotion 1 applic TOPICAL BID PRN 08/28/21 07/30/22 History [Lac-Hydrin 12% Lotion] Lidocaine 5% Oint [Xylocaine 5% 1 applic TOPICAL BID 08/28/21 07/30/22 History Oint] Vit C/E/Zn/Coppr/Lutein/Zeaxan 2 cap PO DAILY 08/28/21 07/30/22 History [Preservision Areds 2 Softgel] Fluticasone/Umeclidin/Vilanter 1 puff INHALATION RT-DAILY 01/01/22 07/30/22 History [Trelegy Ellipta 200-62.5-25] Nephro-Ann 0.8mg 1 cap PO DAILY 01/01/22 07/30/22 History Cholecalciferol [Vitamin D3 (25 50 mcg PO DAILY 02/12/22 07/30/22 History Mcg = 1000 Iu)] Ipratropium [place] 0.06%Nasal 2 spr EA NOSTRIL QID PRN 06/13/22 07/30/22 History [Atrovent Nasal 0.06%] Budesonide-Formot 160-4.5 Mcg 2 puff INHALATION RT-BID 30 Days 06/20/22 07/30/22 Rx [Symbicort 160-4.5 Mcg Inhaler] #1 each Midodrine [ProAmatine] 5 mg PO AC-BID 30 Days #60 tab 06/20/22 07/30/22 Rx Allergies Allergy/AdvReac Type Severity Reaction Status Date / Time pentazocine [From Kimmie] AdvReac Unknown Verified 07/30/22 07:41 Physical Exam Vitals: Vital Signs Temp Pulse Resp BP Pulse Ox FiO2 07/30/22 08:41 98 100 07/30/22 08:30 100 07/30/22 08:00 96.5 F L 98 17 111/68 98 100 07/30/22 07:30 100 28 H 85/69 98 07/30/22 07:00 99 28 H 107/69 99 100 07/30/22 06:30 100 28 H 103/68 98 07/30/22 06:00 108 H 28 H 90/61 99 100 07/30/22 05:30 106 H 28 H 93/66 97 07/30/22 05:00 107 H 28 H 101/69 98 07/30/22 04:50 107 H 16 101/69 98 07/30/22 04:40 107 H 16 99 07/30/22 04:30 111 H 29 H 98 07/30/22 04:27 106 H 97/75 96 07/30/22 04:22 109 H 104/82 99 07/30/22 04:10 110 H 99 07/30/22 03:56 111 H 16 95/71 100 07/30/22 03:45 114 H 16 103/73 99 07/30/22 03:41 113 H 16 102/74 98 07/30/22 03:35 116 H 16 103/74 07/30/22 03:25 118 H 16 103/78 07/30/22 03:20 118 H 16 108/79 97 07/30/22 03:15 100 07/30/22 03:10 122 H 16 111/82 97 07/30/22 03:00 120 H 16 115/80 97 07/30/22 02:55 100 07/30/22 02:52 122 H 14 129/68 94 L Intake and Output 07/29/22 07/30/22 07/30/22 22:59 06:59 14:59 Intake Total 75.34 150 Output Total 0 Balance 75.34 150 Intake: IV 75 150 Sodium Chloride 0.9% 1, 75 150 000 ml @ 75 mls/hr IV . [id number] [facility] Rx#:[id number] Intake, IV Titration 0.34 Amount propofoL 1,000 mg In 0.34 Empty Bag 1 bag @ 5 MCG/ KG/MIN 2.041 mls/hr IV . Q24H [facility] Rx#:[id number] Output: Urine 0 Other: Weight 68.039 kg Results - Lab Results Most recent lab results ABG pH 7.06 (7.35-7.45) L* 07/30/22 07:59 ABG pCO2 44 mmHg (35-45) 07/30/22 07:59 ABG pO2 185 mmHg (83-108) H 07/30/22 07:59 ABG HCO3 12 mmol/L (21-25) L 07/30/22 07:59 ABG O2 Saturation 98.6 % (94-97) H 07/30/22 07:59 Calcium 7.2 mg/dL (8.4-10.2) L 07/30/22 03:44 07/30/22 03:12 07/30/22 05:57 Assessment and Plan Plan: Assessment: 1. End-stage renal disease maintained on hemodialysis on Friday schedule via right upper extremity AV graft. 2. PEA arrest. 3. Right lower extremity cellulitis/osteomyelitis on antibiotics. 4. Pneumonia on antibiotics. 5. Diabetes mellitus. 6. Chronic diastolic CHF. 7. Metabolic acidosis secondary to chronic kidney disease and lactic acidosis/CPR. Plan: Hemodialysis today. Follow-up echocardiogram. Follow-up cultures. Neurology, infectious disease and cardiology consulted. Case discussed with investigations consultant and daughter present at bedside. Thank you for the consultation. I will continue to follow the patient with you during her hospital stay.
[2022-07-30] MEDS ORDERED: LEVOTHYROXINE 75 MCG TAB PO SCH (09:15)
[2022-07-30 09:17] LABS: Phosphorus 9.6 mg/dL (2.5-4.5)
[2022-07-30] MEDS ORDERED: PIPERACILLIN-TAZOBACTAM 3.375 GM in SODIUM CHLORIDE 0.9% 100 ML IVPB SCH (10:00)
[2022-07-30] MEDS: MIDODRINE 5 MG TAB PO SCH ×2 (10:52→16:57)
[2022-07-30] MEDS: APIXABAN 2.5 MG TABLET PO SCH ×2 (10:54→20:42)
[2022-07-30] MEDS: CHLORHEXIDINE GLUCONATE 15 ML CUP MUCOUS MEM SCH ×2 (10:54→20:42)
[2022-07-30] MEDS ORDERED: VANCOMYCIN 1,250 MG in SODIUM CHLORIDE 0.9% 250 ML IVPB ONE (11:00)
[2022-07-30] MEDS: NOREPINEPHRINE 8 MG in SODIUM CHLORIDE 0.9% 250 ML IV SCH (12:49)
--- NOTE | 2022-07-30 13:08 | P.CRDCN ---
History of Present Illness Consult date: 07/30/22 History of present illness: History of Present Illness: The patient is a 72-year-old female with a known history of end-stage renal disease on hemodialysis, severe peripheral vascular disease, paroxysmal atrial fibrillation who presented with a cardiac arrest. According to the nursing staff the patient was taken to the bathroom by her daughter shortly after she was not responding, EMS arrived and CPR was initiated. The patient regained her pulse and blood pressure after at least 20-30 minutes of CPR. She is intubated at this time. She was acidotic on presentation. She is in sinus mechanism with no episodes off atrial fibrillation or ventricular tachycardia noted. It does not appear that she had any cardioversion. Initially she was on norepinephrine that was stopped. Reviewing her old records patient has been followed by Dr. Mccoy, in January 2022 her echocardiogram showed a borderline left ventricular systolic function. Patient according to the record has been attending dialysis on a regular basis. Her troponin was mildly elevated and she was negative for Covid infection. She is receiving dialysis at this time. Medications: Midodrine, insulin, Lasix, Lipitor 40 mg daily, methadone,Eliquis 5 mg twice a day, Synthroid Review of Systems: Could not be obtained, the patient is intubated Physical Examination: 72-year-old female, intubated , not responsive to painful stimulation,Blood pressure 106/59, Heart rate 104 Head: Normocephalic. Eyes: Sclerae nonicteric. Pupils nonreactive Neck: Good carotid upstroke, no bruit, no jugular venous distention. Lungs: Clear to auscultation anteriorly. Heart: Regular rate and rhythm, S1-S2, no S3, no rub. Systolic ejection murmur. Abdomen: Soft positive bowel sounds no organomegaly. 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 Labs: WBC 20.1, hemoglobin 14, pH 6.96. BUN 37, creatinine 5.76, plasma lactic acid 9.8, potassium 4.2. Troponin 0.157, 0.531, 1.07. Chest x-ray shows evidence of pneumonia EKG: Wide-complex rhythm, junctional with left bundle branch block configuration Impression: 1. Cardiac arrest, no evidence of malignant arrhythmia so far or evidence to suggest acute ischemia, etiology unclear. Possible severe encephalopathy 2. End-stage renal disease, on hemodialysis 3. Severe peripheral vascular disease 4. Paroxysmal atrial fibrillation 5. History of diabetes 6. History of hyperlipidemia 7. Prior history of osteomyelitis Plan: 1. Continue supportive care 2. Obtain an echocardiogram with Doppler 3. Her troponin elevation is most likely secondary to her chronic kidney disease and cardiac arrest 4. Repeat EKG, on the monitor at this time she has narrow complex QRS. The wide-complex is most likely related to the acidosis and a cardiac arrest 5. Depending on her progress further recommendations will be made, the prognosis is guarded. Thank you for this consult we will follow with you. Past Medical History Past Medical History: Atrial Fibrillation, Cancer, COPD, Diabetes Mellitus, Eye Disorder, Hyperlipidemia, Hypertension, Renal Disease, Vascular Disorder Additional Past Medical History / Comment(s): Recent vulvar cancer with surgery, IDDM type II, neuropathy, ESRD with hemodialysis T//, kidney cysts, anemia, PVD/L AKA, pt thinks DVTs R leg/L arm, past R leg wound, macular degeneration bilaterally/legally blind, chronic back pain, scoliosis, History of Any Multi-Drug Resistant Organisms: MRSA Date of last positivie culture/infection: 2015 MDRO Source:: left leg Past Surgical History: Adenoidectomy, Orthopedic Surgery, Tonsillectomy Additional Past Surgical History / Comment(s): Recent total vulvectomy at [facility] in [facility], L arm dialysis graft/multiple surgeries to repair, R arm fistula, L AKA, L chest port, surgery on L arm and R leg pt thinks to remove blood clots, vulva surgery Past Anesthesia/Blood Transfusion Reactions: No Reported Reaction Additional Past Anesthesia/Blood Transfusion Reaction / Comment(s): no problems with prior blood transfusions Past Psychological History: Anxiety Smoking Status: Current every day smoker, Light tobacco smoker Past Alcohol Use History: None Reported Past Drug Use History: None Reported - Past Family History Mother Additional Family Medical History / Comment(s): Mother of liver cirrhosis at the age of 34yrs. Father Family Medical History: Eye Disorder Additional Family Medical History / Comment(s): Macular degeneration. He at age 93 family Family Medical History: Unable to Obtain Medications and Allergies Home Medications Medication Instructions Recorded Confirmed Type ALPRAZolam [Xanax] 1 mg PO Q8H PRN 04/18/20 07/30/22 History Atorvastatin [Lipitor] 40 mg PO HS 04/18/20 07/30/22 History Calcium Acetate [PhosLo] 1,334 mg PO TID-W/MEALS 04/18/20 07/30/22 History Insulin Degludec [Tresiba 10 units SQ DAILY 04/18/20 07/30/22 History Flextouch U-100 Pen] Levocetirizine Dihydrochloride 5 mg PO BID 04/18/20 07/30/22 History Levothyroxine Sodium [Synthroid] 150 mcg PO DAILY 04/18/20 07/30/22 History Methadone HCl [Methadone Intensol] 125 mg PO DAILY 04/18/20 07/30/22 History Omeprazole 20 mg PO DAILY 04/18/20 07/30/22 History Furosemide [Lasix] 20 mg PO SUMOWEFR 05/20/20 07/30/22 History Insulin Lispro [humaLOG Kwikpen] See Protocol SQ AC-TID 05/20/20 07/30/22 History Apixaban [Eliquis] 2.5 mg PO BID 12/05/20 07/30/22 History Ammonium Lactate Lotion 1 applic TOPICAL BID PRN 08/28/21 07/30/22 History [Lac-Hydrin 12% Lotion] Lidocaine 5% Oint [Xylocaine 5% 1 applic TOPICAL BID 08/28/21 07/30/22 History Oint] Vit C/E/Zn/Coppr/Lutein/Zeaxan 2 cap PO DAILY 08/28/21 07/30/22 History [Preservision Areds 2 Softgel] Fluticasone/Umeclidin/Vilanter 1 puff INHALATION RT-DAILY 01/01/22 07/30/22 History [Trelegy Ellipta 200-62.5-25] Nephro-Ann 0.8mg 1 cap PO DAILY 01/01/22 07/30/22 History Cholecalciferol [Vitamin D3 (25 50 mcg PO DAILY 02/12/22 07/30/22 History Mcg = 1000 Iu)] Ipratropium [place] 0.06%Nasal 2 spr EA NOSTRIL QID PRN 06/13/22 07/30/22 History [Atrovent Nasal 0.06%] Budesonide-Formot 160-4.5 Mcg 2 puff INHALATION RT-BID 30 Days 06/20/22 07/30/22 Rx [Symbicort 160-4.5 Mcg Inhaler] #1 each Midodrine [ProAmatine] 5 mg PO AC-BID 30 Days #60 tab 06/20/22 07/30/22 Rx Allergies Allergy/AdvReac Type Severity Reaction Status Date / Time pentazocine [From Kimmie] AdvReac Unknown Verified 07/30/22 07:41 Physical Exam Vitals: Vital Signs Temp Pulse Resp BP Pulse Ox FiO2 07/30/22 11:51 100 07/30/22 11:00 104 H 28 H 106/59 98 07/30/22 10:30 101 H 28 H 98/72 99 07/30/22 10:00 102 H 28 H 97/74 96 07/30/22 09:30 102 H 28 H 106/65 99 07/30/22 09:00 100 28 H 105/63 07/30/22 08:41 98 100 07/30/22 08:30 103 H 28 H 104/70 100 07/30/22 08:00 96.5 F L 98 17 111/68 98 100 07/30/22 07:30 100 28 H 85/69 98 07/30/22 07:00 99 28 H 107/69 99 100 07/30/22 06:30 100 28 H 103/68 98 07/30/22 06:00 108 H 28 H 90/61 99 100 07/30/22 05:30 106 H 28 H 93/66 97 07/30/22 05:00 107 H 28 H 101/69 98 07/30/22 04:50 107 H 16 101/69 98 07/30/22 04:40 107 H 16 99 07/30/22 04:30 111 H 29 H 98 07/30/22 04:27 106 H 97/75 96 07/30/22 04:22 109 H 104/82 99 07/30/22 04:10 110 H 99 07/30/22 03:56 111 H 16 95/71 100 07/30/22 03:45 114 H 16 103/73 99 07/30/22 03:41 113 H 16 102/74 98 07/30/22 03:35 116 H 16 103/74 07/30/22 03:25 118 H 16 103/78 07/30/22 03:20 118 H 16 108/79 97 03/07/23 03:15 100 07/30/22 03:10 122 H 16 111/82 97 07/30/22 03:00 120 H 16 115/80 97 07/30/22 02:55 100 07/30/22 02:52 122 H 14 129/68 94 L Intake and Output 07/29/22 07/30/22 07/30/22 22:59 06:59 14:59 Intake Total 75.34 210 Output Total 0 Balance 75.34 210 Intake: IV 75 210 Sodium Chloride 0.9% 1, 75 210 000 ml @ 75 mls/hr IV . [id number] [facility] Rx#:[id number] Intake, IV Titration 0.34 Amount propofoL 1,000 mg In 0.34 Empty Bag 1 bag @ 5 MCG/ KG/MIN 2.041 mls/hr IV . Q24H [facility] Rx#:[id number] Output: Urine 0 Other: Weight 68.039 kg Results 07/30/22 03:12 07/30/22 05:57 Cardiac Enzymes 07/30/22 07/30/22 07/30/22 Range/Units 03:44 03:44 05:57 AST 76 H (14-36) U/L Troponin I 0.157 H* 0.531 H* (0.000-0.034) ng/mL 07/30/22 Range/Units 10:48 AST (14-36) U/L Troponin I 1.070 H* (0.000-0.034) ng/mL Coagulation 07/30/22 Range/Units 03:47 PT 14.5 H (9.0-12.0) sec APTT 29.0 (22.0-30.0) sec CBC 07/30/22 Range/Units 03:12 WBC 20.1 H (3.8-10.6) k/uL RBC 4.27 (3.80-5.40) m/uL Hgb 14.0 (11.4-16.0) gm/dL Hct 48.0 H (34.0-46.0) % Plt Count 120 L (150-450) k/uL Comprehensive Metabolic Panel 07/30/22 07/30/22 Range/Units 03:44 05:57 Sodium 140 (137-145) mmol/L Potassium 4.2 5.4 H (3.5-5.1) mmol/L Chloride 102 (98-107) mmol/L Carbon Dioxide 12 L (22-30) mmol/L BUN 37 H (7-17) mg/dL Creatinine 5.76 H (0.52-1.04) mg/dL Glucose 362 H (74-99) mg/dL Calcium 7.2 L (8.4-10.2) mg/dL AST 76 H (14-36) U/L ALT 48 H (4-34) U/L Alkaline Phosphatase 188 H (38-126) U/L Total Protein 5.3 L (6.3-8.2) g/dL Albumin 2.6 L (3.5-5.0) g/dL Current Medications Generic Name Dose Route Start Last Admin Trade Name Freq PRN Reason Stop Dose Admin Apixaban 2.5 mg 07/30/22 10:00 07/30/22 10:54 Apixaban 2.5 Mg Tablet PO 2.5 mg BID [facility] Administration Protocol Chlorhexidine Gluconate 15 ml 07/30/22 09:00 07/30/22 10:54 Chlorhexidine Gluconate 15 Ml Cup MUCOUS MEM 15 ml BID [facility] Administration Propofol 1,000 mg/ IV Solution 100 mls @ 2.041 mls/hr 07/30/22 03:00 07/30/22 03:10 IV 10 mcg/kg/min .Q24H [facility] 4.082 mls/hr Titration Protocol 5 MCG/KG/MIN Sodium Chloride 1,000 mls @ 75 mls/hr 07/30/22 05:30 07/30/22 05:33 Saline 0.9% IV 75 mls/hr .[id number] [facility] Administration Norepinephrine Bitartrate 8 mg 258 mls @ 3.95 mls/hr 07/30/22 06:30 07/30/22 12:49 / Sodium Chloride IV 0.03 mcg/kg/min .Q24H [facility] 3.95 mls/hr Administration Protocol 0.03 MCG/KG/MIN Piperacillin Sod/Tazobactam 100 mls @ 25 mls/hr 07/30/22 10:00 Sod 3.375 gm/ Sodium Chloride IVPB 07/30/22 17:00 Q12H [facility] Protocol Vancomycin HCl 1,250 mg/ 250 mls @ 125 mls/hr 07/30/22 11:00 Sodium Chloride IVPB 07/30/22 12:59 ONCE ONE Vancomycin HCl 1,250 mg/ 250 mls @ 125 mls/hr 07/31/22 09:00 Sodium Chloride IVPB 07/31/22 10:59 ONCE ONE Piperacillin Sod/Tazobactam 100 mls @ 25 mls/hr 07/31/22 00:00 Sod 3.375 gm/ Sodium Chloride IVPB Q12H [facility] Protocol Insulin Aspart 0 unit 07/30/22 07:30 07/30/22 12:39 Insulin Aspart (Novolog) 100 Unit/Ml Vial SQ 12 unit ACHS [facility] Administration Protocol Levothyroxine Sodium 150 mcg 07/30/22 09:15 07/30/22 10:54 Levothyroxine 75 Mcg Tab PO 150 mcg DAILY@0630 [facility] Administration Midodrine 5 mg 07/30/22 10:30 07/30/22 10:52 Midodrine 5 Mg Tab PO 5 mg AC-BID [facility] Administration Miscellaneous Information 1 each 07/30/22 05:17 Pneumonia Protocol Utilized 1 Each Misc PO ONCE PRN Per Protocol Miscellaneous Information 1 each 07/30/22 09:00 Vancomycin Iv Per Pharmacy 1 Each Misc MISCELLANE DIRECTED PRN Per Protocol Protocol Naloxone HCl 0.2 mg 07/30/22 05:22 Naloxone 0.4 Mg/Ml 1 Ml Vial IV Q2M PRN Opioid Reversal Intake and Output 07/29/22 07/30/22 07/30/22 22:59 06:59 14:59 Intake Total 75.34 210 Output Total 0 Balance 75.34 210 Intake: IV 75 210 Sodium Chloride 0.9% 1, 75 210 000 ml @ 75 mls/hr IV . [id number] [facility] Rx#:[id number] Intake, IV Titration 0.34 Amount propofoL 1,000 mg In 0.34 Empty Bag 1 bag @ 5 MCG/ KG/MIN 2.041 mls/hr IV . Q24H [facility] Rx#:[id number] Output: Urine 0 Other: Weight 68.039 kg 07/30/22 03:12 07/30/22 05:57
--- NOTE | 2022-07-30 13:29 | P.PN ---
Subjective Progress Note Date: 07/30/22 Patient is a 9-year-old female with multiple medical comorbid conditions including diabetes mellitus type 2, end-stage renal disease on hemodialysis Friday//Friday, COPD, hypertension, dyslipidemia, and prior AKA who presented to the hospital via EMS after a cardiac arrest. Upon EMS arrival the patient was an PEA, CPR was started in the field. Upon arrival to the emergency department she had regained a pulse she was subsequently intubated and placed on mechanical ventilation. She was known to have wide complex tachycardia and was given 1 g of calcium chloride. Analysis was remarkable for white blood cell count 20.1, platelets 120, BUN 37, creatinine 5.76, glucose 362, calcium 7.2, AST 76, ALT 48, alkaline phosphatase 188, troponin 0.157, and albumin of 2.7. Initial ABG showed a pH of 6.96 pCO2 [address] of [address] head showed cerebral atrophy with no acute intracranial abnormality and the CT scan of her cervical spine showed no acute fracture. Chest x-ray showed possible left sided upper lobe infiltrate. Admitted to the ICU. Critical care was consulted for ventilator management and nephrology was consulted for resumption of dialysis. Patient seen and examined at bedside. She is sedated on the vent. She does attempt to move her right had to command- she is unable to do a thumbs up but moves her right hand, she is unable to lift head of pillow but attmetps to do this on command. Sh eis able to shake head no on command. Daughter present at bedside and all questions answered. Vital signs reviewed General: nontoxic, no distress, appears at stated age Cardiovascular: S1S2 reg, no murmur,purple discoloration of right foot with left AKA Lungs: Course bs bilateral, no rhonchi, no rales , no accessory muscle use, on vent Abdominal: soft, nontender to palpation, no guarding, no appreciable organomegaly Ext: no gross muscle atrophy, no edema, no contractures Neuro: breathing over the vent, moving b/l hands minimally. Psych: lethargic but intermittently following commands. 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 ET tube in place. Data Review: Labs remarkable for a pH of 7.06 on ABG with a bicarbonate of 12. Repeat potassium 5.4, lactic acid 9.3 (from 9.8 on admission), troponin is up to 1.COVID-19 testing negative. Plan: - zosyn 3.375 mg every 12 hours, vancomycin pharmayc dosing D # 1 for pneumonia. Will need to monitor for vanco toxicity with daily renal function and vanco trough - also on vanco for current osteomyelitis - novolog via scale, follow BS - Resume eliquis 2.5 mg twice dialy - once patient is more awake resume methadon for her chronic pain - hold Xanax - nephro note reviewed: HD today - cardio note reviewed: await echo - await neurology recs - add Protonix 40 mg daily (patient takes PPI at home and needs for prophylaxis while on vent) - Resume symbicort twice daily - Start levemir at night, patient is on tresiba at home. - need repeat CBC in AM to assess for infection status, BMP for electrolyte abnormalities - repeat troponin as currently uptrending DVT prophylaxis: Discussed with: Anticipated discharge date: Anticipated discharge place: This dictation was prepared using [employer] voice recognition software. Though every attempt is made to correct errors during during dictation some may still exist. Objective - Vital Signs Vital signs: Vital Signs Temp 96.5 F L 07/30/22 08:00 Pulse 98 07/30/22 08:00 Resp 17 07/30/22 08:00 BP 111/68 07/30/22 08:00 Pulse Ox 98 07/30/22 08:00 FiO2 100 07/30/22 08:00 Intake & Output 07/29/22 07/30/22 07/30/22 18:59 06:59 18:59 Intake Total 75.34 150 Output Total 0 Balance 75.34 150 Weight 68.039 kg Intake: IV 75 150 Sodium Chloride 0.9% 1, 75 150 000 ml @ 75 mls/hr IV . [id number] [facility] Rx#:[id number] Intake, IV Titration 0.34 Amount propofoL 1,000 mg In 0.34 Empty Bag 1 bag @ 5 MCG/ KG/MIN 2.041 mls/hr IV . Q24H [facility] Rx#:[id number] Output: Urine 0 - Labs CBC & Chem 7: 07/30/22 03:12 07/30/22 05:57 Labs: Abnormal Lab Results - Last 24 Hours (Table) 07/30/22 07/30/22 07/30/22 Range/Units 03:12 03:15 03:44 WBC 20.1 H (3.8-10.6) k/uL Hct 48.0 H (34.0-46.0) % MCV 112.4 H D (80.0-100.0) fL MCHC 29.1 L (31.0-37.0) g/dL Plt Count 120 L (150-450) k/uL Neutrophils # 8.2 H (1.3-7.7) k/uL Lymphocytes # 9.6 H (1.0-4.8) k/uL Basophils # 0.4 H (0-0.2) k/uL Macrocytosis Marked A PT (9.0-12.0) sec INR (<1.2) ABG pH 6.96 L* (7.35-7.45) ABG pCO2 62 H (35-45) mmHg ABG pO2 (83-108) mmHg ABG HCO3 14 L (21-25) mmol/L ABG Total CO2 16 L (19-24) mmol/L ABG O2 Saturation 87.2 L (94-97) % Potassium (3.5-5.1) mmol/L Carbon Dioxide 12 L (22-30) mmol/L BUN 37 H (7-17) mg/dL Creatinine 5.76 H (0.52-1.04) mg/dL Glucose 362 H (74-99) mg/dL POC Glucose (mg/dL) (70-110) mg/dL Calcium 7.2 L (8.4-10.2) mg/dL AST 76 H (14-36) U/L ALT 48 H (4-34) U/L Alkaline Phosphatase 188 H (38-126) U/L Troponin I (0.000-0.034) ng/mL Total Protein 5.3 L (6.3-8.2) g/dL Albumin 2.6 L (3.5-5.0) g/dL 07/30/22 07/30/22 07/30/22 Range/Units 03:44 03:47 03:48 WBC (3.8-10.6) k/uL Hct (34.0-46.0) % MCV (80.0-100.0) fL MCHC (31.0-37.0) g/dL Plt Count (150-450) k/uL Neutrophils # (1.3-7.7) k/uL Lymphocytes # (1.0-4.8) k/uL Basophils # (0-0.2) k/uL Macrocytosis PT 14.5 H (9.0-12.0) sec INR 1.4 H (<1.2) ABG pH (7.35-7.45) ABG pCO2 (35-45) mmHg ABG pO2 (83-108) mmHg ABG HCO3 (21-25) mmol/L ABG Total CO2 (19-24) mmol/L ABG O2 Saturation (94-97) % Potassium (3.5-5.1) mmol/L Carbon Dioxide (22-30) mmol/L BUN (7-17) mg/dL Creatinine (0.52-1.04) mg/dL Glucose (74-99) mg/dL POC Glucose (mg/dL) 377 H (70-110) mg/dL Calcium (8.4-10.2) mg/dL AST (14-36) U/L ALT (4-34) U/L Alkaline Phosphatase (38-126) U/L Troponin I 0.157 H* (0.000-0.034) ng/mL Total Protein (6.3-8.2) g/dL Albumin (3.5-5.0) g/dL 07/30/22 07/30/22 07/30/22 Range/Units 05:57 05:57 07:59 WBC (3.8-10.6) k/uL Hct (34.0-46.0) % MCV (80.0-100.0) fL MCHC (31.0-37.0) g/dL Plt Count (150-450) k/uL Neutrophils # (1.3-7.7) k/uL Lymphocytes # (1.0-4.8) k/uL Basophils # (0-0.2) k/uL Macrocytosis PT (9.0-12.0) sec INR (<1.2) ABG pH 7.06 L* (7.35-7.45) ABG pCO2 (35-45) mmHg ABG pO2 185 H (83-108) mmHg ABG HCO3 12 L (21-25) mmol/L ABG Total CO2 14 L (19-24) mmol/L ABG O2 Saturation 98.6 H (94-97) % Potassium 5.4 H (3.5-5.1) mmol/L Carbon Dioxide (22-30) mmol/L BUN (7-17) mg/dL Creatinine (0.52-1.04) mg/dL Glucose (74-99) mg/dL POC Glucose (mg/dL) (70-110) mg/dL Calcium (8.4-10.2) mg/dL AST (14-36) U/L ALT (4-34) U/L Alkaline Phosphatase (38-126) U/L Troponin I 0.531 H* (0.000-0.034) ng/mL Total Protein (6.3-8.2) g/dL Albumin (3.5-5.0) g/dL
[2022-07-30] MEDS ORDERED: PANTOPRAZOLE 40 MG TABLET PO SCH (13:30)
[2022-07-30] MEDS ORDERED: NON FORMULARY DRUG (Levothyroxine Sodium [Synthroid] 150 MCG Tablet) PO SCH (13:30)
--- NOTE | 2022-07-30 14:34 | P.CNNES ---
History of Present Illness Consult date: 07/30/22 Requesting physician: Lorena Clark Reason for Consult: Cardiac arrest with downtime History of Present Illness: Patient is a 72-year-old female with history of ESRD, hemodialysis, was brought to the hospital by ambulance at 2:52 AM for cardiac arrest. According to EMS flowsheet, they were called for patient with difficulty in breathing. Upon arrival by the fire department personnel, they found patient on the floor with agonal respiration and absent pulses. Patient's daughter on the scene states that patient woke up and was having difficulty in breathing. Patient wanted to have a bowel movement so she was on the toilet and daughter went to get her inhaler. When she went back into the bathroom, she found patient fell onto the floor. Patient had a fall 3 days prior and was complaining of ongoing rib pain however refuse to go to the hospital for evaluation per patient's daughter. Patient is a dialysis, does not miss her dialysis appointments. Patient has above left knee amputation. Patient was pulseless, apneic. Patient was placed on city editor and was found to have PEA. EKG showed left bundle branch block and atrial fibrillation. During the CPR, there was some faint pulse felt, but then she lost it again and CPR was resumed. Compressions and ventilations were continued via Samir device. Patient was given naloxone without improvement. Patient's pulse reappeared just before they arrived to the ER. Patient's blood sugar at the scene was 379. Patient received 2 rounds of epinep hrine. It appears EMS received the call at 2:02 AM and they arrived at the hospital at 2:47 AM. Patient was intubated in the ER. Patient's blood test shows WBC 20.1 hemoglobin 14.0, elevated MCV 112 and platelets 120. Patient's pH was 6.96, pCO2 62, saturation 87%. Electrolytes normal, BUN 37 creatinine 5.76. Lactate was 9.8. AST 76, ALT 48, troponin 0.157, which has gone up to 1.070. Coronal virus PCR negative. CT head revealed cerebral atrophy. No acute intracranial abnormality. No significant change. I personally reviewed CT head, agree with the findings. Negative computed tomography scan of the cervical spine. No fracture. Review of Systems Patient able to nod her head "no no" for headache. Rest of the review of systems could not be assessed. ROS unobtainable: due to endotracheal tube, due to mental status Past Medical History Past Medical History: Atrial Fibrillation, Cancer, COPD, Diabetes Mellitus, Eye Disorder, Hyperlipidemia, Hypertension, Renal Disease, Vascular Disorder Additional Past Medical History / Comment(s): Recent vulvar cancer with surgery, IDDM type II, neuropathy, ESRD with hemodialysis T//, kidney cysts, anemia, PVD/L AKA, pt thinks DVTs R leg/L arm, past R leg wound, macular degeneration bilaterally/legally blind, chronic back pain, scoliosis, History of Any Multi-Drug Resistant Organisms: MRSA Date of last positivie culture/infection: 2015 MDRO Source:: left leg Past Surgical History: Adenoidectomy, Orthopedic Surgery, Tonsillectomy Additional Past Surgical History / Comment(s): Recent total vulvectomy at [facility] in [facility], L arm dialysis graft/multiple surgeries to re pair, R arm fistula, L AKA, L chest port, surgery on L arm and R leg pt thinks to remove blood clots, vulva surgery Past Anesthesia/Blood Transfusion Reactions: No Reported Reaction Additional Past Anesthesia/Blood Transfusion Reaction / Comment(s): no problems with prior blood transfusions Past Psychological History: Anxiety Smoking Status: Current every day smoker, Light tobacco smoker Past Alcohol Use History: None Reported Past Drug Use History: None Reported - Past Family History Mother Additional Family Medical History / Comment(s): Mother of liver cirrhosis at the age of 34yrs. Father Family Medical History: Eye Disorder Additional Family Medical History / Comment(s): Macular degeneration. He at age 93 family Family Medical History: Unable to Obtain Medications and Allergies Home Medications Medication Instructions Recorded Confirmed Type ALPRAZolam [Xanax] 1 mg PO Q8H PRN 04/18/20 07/30/22 History Atorvastatin [Lipitor] 40 mg PO HS 04/18/20 07/30/22 History Calcium Acetate [PhosLo] 1,334 mg PO TID-W/MEALS 04/18/20 07/30/22 History Insulin Degludec [Tresiba 10 units SQ DAILY 04/18/20 07/30/22 History Flextouch U-100 Pen] Levocetirizine Dihydrochloride 5 mg PO BID 04/18/20 07/30/22 History Levothyroxine Sodium [Synthroid] 150 mcg PO DAILY 04/18/20 07/30/22 History Methadone HCl [Methadone Intensol] 125 mg PO DAILY 04/18/20 07/30/22 History Omeprazole 20 mg PO DAILY 04/18/20 07/30/22 History Furosemide [Lasix] 20 mg PO SUMOWEFR 05/20/20 07/30/22 History Insulin Lispro [humaLOG Kwikpen] See Protocol SQ AC-TID 05/20/20 07/30/22 History Apixaban [Eliquis] 2.5 mg PO BID 12/05/20 07/30/22 History Ammonium Lactate Lotion 1 applic TOPICAL BID PRN 08/28/21 07/30/22 History [Lac-Hydrin 12% Lotion] Lidocaine 5% Oint [Xylocaine 5% 1 applic TOPICAL BID 08/28/21 07/30/22 History Oint] Vit C/E/Zn/Coppr/Lutein/Zeaxan 2 cap PO DAILY 08/28/21 07/30/22 History [Preservision Areds 2 Softgel] Fluticasone/Umeclidin/Vilanter 1 puff INHALATION RT-DAILY 01/01/22 07/30/22 Hi story [Trelegy Ellipta 200-62.5-25] Nephro-Ann 0.8mg 1 cap PO DAILY 01/01/22 07/30/22 History Cholecalciferol [Vitamin D3 (25 50 mcg PO DAILY 02/12/22 07/30/22 History Mcg = 1000 Iu)] Ipratropium [place] 0.06%Nasal 2 spr EA NOSTRIL QID PRN 06/13/22 07/30/22 History [Atrovent Nasal 0.06%] Budesonide-Formot 160-4.5 Mcg 2 puff INHALATION RT-BID 30 Days 06/20/22 07/30/22 Rx [Symbicort 160-4.5 Mcg Inhaler] #1 each Midodrine [ProAmatine] 5 mg PO AC-BID 30 Days #60 tab 06/20/22 07/30/22 Rx Allergies Allergy/AdvReac Type Severity Reaction Status Date / Time pentazocine [From Talwin] AdvReac Unknown Verified 07/30/22 07:41 Physical Examination - Vital Signs Vital Signs: Vital Signs Temp Pulse Resp BP Pulse Ox FiO2 07/30/22 11:00 104 H 28 H 106/59 98 07/30/22 10:30 101 H 28 H 98/72 99 07/30/22 10:00 102 H 28 H 97/74 96 07/30/22 09:30 102 H 28 H 106/65 99 07/30/22 09:00 100 28 H 105/63 07/30/22 08:41 98 100 07/30/22 08:30 103 H 28 H 104/70 100 07/30/22 08:00 96.5 F L 98 17 111/68 98 100 07/30/22 07:30 100 28 H 85/69 98 07/30/22 07:00 99 28 H 107/69 99 100 07/30/22 06:30 100 28 H 103/68 98 07/30/22 06:00 108 H 28 H 90/61 99 100 07/30/22 05:30 106 H 28 H 93/66 97 07/30/22 05:00 107 H 28 H 101/69 98 07/30/22 04:50 107 H 16 101/69 98 07/30/22 04:40 107 H 16 99 07/30/22 04:30 111 H 29 H 98 07/30/22 04:27 106 H 97/75 96 07/30/22 04:22 109 H 104/82 99 07/30/22 04:10 110 H 99 07/30/22 03:56 111 H 16 95/71 100 07/30/22 03:45 114 H 16 103/73 99 07/30/22 03:41 113 H 16 102/74 98 07/30/22 03:35 116 H 16 103/74 07/30/22 03:25 118 H 16 103/78 07/30/22 03:20 118 H 16 108/79 97 07/30/22 03:15 100 07/30/22 03:10 122 H 16 111/82 97 07/30/22 03:00 120 H 16 115/80 97 07/30/22 02:55 100 07/30/22 02:52 122 H 14 129/68 94 L Intake and Output 07/29/22 07/30/22 07/30/22 22:59 06:59 14:59 Intake Total 75.34 210 Output Total 0 Balance 75.34 210 Intake: IV 75 210 Sodium Chloride 0.9% 1, 75 210 000 ml @ 75 mls/hr IV . [id number] [facility] Rx#:[id number] Intake, IV Titration 0.34 Amount propofoL 1,000 mg In 0.34 Empty Bag 1 bag @ 5 MCG/ KG/MIN 2.041 mls/hr IV . Q24H [facility] Rx#:[id number] Output: Urine 0 Other: Weight 68.039 kg Patient is an elderly female, who is intubated. Patient was sedated with propofol 10 mcg/mg/m. It was discontinued. Patient started to become more interactive with stopping sedation. Patient trying to open her eyes, nodding her head appropriately. I asked if she was Zina, patient nodded for no. When asked if she was Raquel, she nodded for yes. Speech and language functions could not be assessed as patient is intubated. However she is following commands. On cranial nerve examination, pupils are equal, round and reacting to light, visual dodge could not be tested. Extraocular muscles are intact with no nystagmus. Face cannot be assessed as well as the lower cranial nerves because of patient being intubated. She does have a gag and cough. She is breathing over the ventilator. On muscle strength testing, patient squeeze my hands mildly bilaterally. It was consistent. She tried to raise her arms off the bed bilaterally. Patient has left above-knee amputation. Patient has amputated first 2 toes on the right foot. Deep tendon reflexes are absent. Sensory to touch appears equal as patient started gripping when I put my fingers in her museum registrar. Cerebellar functions cannot be assessed. Tone is equal bilaterally. Gait deferred.. On general examination, there is no carotid bruit or murmur, S1-S2 audible. Chest is clear on consultation. Abdomen is soft nontender. No organomegaly, bowel sounds present. Patient has hyperpigmentation of her right harris region. She is amputated first 2 toes of the right foot. Results - Laboratory Findings CBC and BMP: 07/31/22 02:25 07/31/22 02:25 Abnormal Lab Findings: Abnormal Labs 07/30/22 07/30/22 07/30/22 03:12 03:15 03:44 WBC 20.1 H Hct 48.0 H MCV 112.4 H D MCHC 29.1 L Plt Count 120 L Neutrophils # 8.2 H Lymphocytes # 9.6 H Basophils # 0.4 H Macrocytosis Marked A PT INR ABG pH 6.96 L* ABG pCO2 62 H ABG pO2 ABG HCO3 14 L ABG Total CO2 16 L ABG O2 Saturation 87.2 L Potassium Carbon Dioxide 12 L BUN 37 H Creatinine 5.76 H Glucose 362 H POC Glucose (mg/dL) Plasma Lactic Acid Koby Calcium 7.2 L Phosphorus Magnesium AST 76 H ALT 48 H Alkaline Phosphatase 188 H Troponin I Total Protein 5.3 L Albumin 2.6 L 07/30/22 07/30/22 07/30/22 03:44 03:44 03:44 WBC Hct MCV MCHC Plt Count Neutrophils # Lymphocytes # Basophils # Macrocytosis PT INR ABG pH ABG pCO2 ABG pO2 ABG HCO3 ABG Total CO2 ABG O2 Saturation Potassium Carbon Dioxide BUN Creatinine Glucose POC Glucose (mg/dL) Plasma Lactic Acid Koby 9.8 H* Calcium Phosphorus 9.6 H* Magnesium 2.9 H AST ALT Alkaline Phosphatase Troponin I 0.157 H* Total Protein Albumin 07/30/22 07/30/22 07/30/22 03:47 03:48 05:57 WBC Hct MCV MCHC Plt Count Neutrophils # Lymphocytes # Basophils # Macrocytosis PT 14.5 H INR 1.4 H ABG pH ABG pCO2 ABG pO2 ABG HCO3 ABG Total CO2 ABG O2 Saturation Potassium Carbon Dioxide BUN Creatinine Glucose POC Glucose (mg/dL) 377 H Plasma Lactic Acid Koby Calcium Phosphorus Magnesium AST ALT Alkaline Phosphatase Troponin I 0.531 H* Total Protein Albumin 07/30/22 07/30/22 07/30/22 05:57 07:59 10:48 WBC Hct MCV MCHC Plt Count Neutrophils # Lymphocytes # Basophils # Macrocytosis PT INR ABG pH 7.06 L* ABG pCO2 ABG pO2 185 H ABG HCO3 12 L ABG Total CO2 14 L ABG O2 Saturation 98.6 H Potassium 5.4 H Carbon Dioxide BUN Creatinine Glucose POC Glucose (mg/dL) Plasma Lactic Acid Koby 9.3 H* Calcium Phosphorus Magnesium AST ALT Alkaline Phosphatase Troponin I Total Protein Albumin Assessment and Plan Assessment: * Status post cardiac arrest with prolonged downtime. However patient has received CPR via Samir device, and patient had pulse rate was the Samir device was discontinued, therefore unclear when the pulse actually reappeared. Patient's duration of cardiac arrest therefore is of not clear. * Atrial fibrillation * COPD * Diabetes * Hypertension * ESRD on hemodialysis Plan: * EEG was performed, which revealed mild background disorganization and mild slowing, suggestive of encephalopathy. There is bilateral temporal slowing, left more than right, with rare sharp-appearing waves on the left. This suggests focal cortical neuronal dysfunction. * CT head showed no acute process. I personally reviewed CT head, and is essentially unchanged as compared to CT head from 03/02/2022. * Patient is showing meaningful clinical response. She is waking up, following directions. This pertains good prognosis. * Patient has just completed hemodialysis. * Neurology will follow clinically. Discussed patient's daughter in detail. Time with Patient: Greater than 30
[2022-07-30] MEDS ORDERED: PANTOPRAZOLE 40 MG/10 ML VIAL IVP SCH (17:15)
--- NOTE | 2022-07-30 19:29 | EEG ---
ELECTROENCEPHALOGRAM REPORT PREAMBLE: This is a 72-year-old female with cardiac arrest with prolonged down time. EEG FINDINGS: This is a 21-channel digital EEG recorded with video component, utilizing 10/20 international system with referential and bipolar montages. Background consists of well-developed, but not very well regulated, mixed frequencies of theta, intermixed with some fast and slow frequency activity in bihemispheric region. More frequent bitemporal slowing, left more than right was seen. Background does not seem to be reactive to eye opening or closing. Photic driving response was not seen. Occasional left temporal-sharp appearing waves were seen. Different stages of sleep were not seen. IMPRESSION: This is an abnormal EEG due to: 1. Background slowing and disorganization of mild degree, suggestive of encephalopathy. 2. Intermittent focal slowing, left more than right temporal region, suggestive of focal cortical neuronal dysfunction. 3. Presence of occasional sharp appearing waves left temporal region, suggest underlying cortical irritability. No electrographic seizure was recorded. MMODL / IJN: [id number] /
[2022-07-30] MEDS ORDERED: SYMBICORT 160-4.5 MCG INHALER INHALATION SCH (20:00)
[2022-07-30] MEDS ORDERED: INSULIN REGULAR 100 UNIT/ML VIAL (IV) IV ONE (20:18)
[2022-07-30] MEDS ORDERED: SODIUM ZIRCONIUM CYCLOSILICATE 10 GM PACKET PO ONE (20:18)
[2022-07-30] MEDS ORDERED: DEXTROSE 50% SYRINGE 50 ML IVP STA (20:18)
[2022-07-30] MEDS ORDERED: SODIUM BICARB 8.4% 50 ML SYR (1 MEQ/ML) IV STA (20:18)
[2022-07-30] MEDS ORDERED: INSULIN DETEMIR (LEVEMIR) 100 UNIT/ML SYR SQ SCH (21:00)
--- NOTE | 2022-07-30 21:45 | P.CONS ---
History of Present Illness - Reason for Consult Consult date: 07/30/22 Osteomyelitis Requesting physician: Lorena Clark - Chief Complaint Shortness of breath and unresponsiveness x one day - History of Present Illness Patient is a 72-year-old female with a past medical history pertinent for diabetes mellitus COPD hypertension hyperlipidemia end-stage renal disease on hemodialysis admitted to this facility May 2022 with the patient did have a wound on the dorsum aspect of the right fourth toe and right heel area MRI was suspicious for osteomyelitis local culture finalized with staph epi and anaerobes and the patient was advised a 6-week course of vancomycin pharmacy to dose through dialysis and oral Flagyl, patient was supposed to follow-up in the office however has not made any follow-up visit patient is now brought to the ER early this morning for evaluation of shortness of breath and the patient was found to be unresponsive EMS was calling CPR was started and the patient received 3 epi and 1 mg of Narcan as the patient daughter was concerned the patient may have overdosed on methadone patient remained in PEA subsequently has been admitted to the ICU on presentation to the hospital and the patient was afebrile tachycardic hypotensive requiring pressor support did have elevated lactic acid and troponin white count was 20,000 elevated kidney function as well as liver enzymes marshall PCR was negative patient did have a chest x-ray left- sided pneumonia mainly in the left upper lobe no obvious heart failure patient has been started on Zosyn continued on vancomycin infectious disease was consulted for further management of antibiotic therapy most information has been obtained from review the chart talking nursing staff as the patient is currently unresponsive and a family member at the bedside patient has been requiring pressor support no significant purulent secretion through the ED vomiting or diarrhea has been reported Review of Systems Positive points has been mentioned in HPI complete review could not be obtained because patient is intubated on the vent Past Medical History Past Medical History: Atrial Fibrillation, Cancer, COPD, Diabetes Mellitus, Eye Disorder, Hyperlipidemia, Hypertension, Renal Disease, Vascular Disorder Additional Past Medical History / Comment(s): Recent vulvar cancer with surgery, IDDM type II, neuropathy, ESRD with hemodialysis T//, kidney cysts, anemia, PVD/L AKA, pt thinks DVTs R leg/L arm, past R leg wound, macular degeneration bilaterally/legally blind, chronic back pain, scoliosis, History of Any Multi-Drug Resistant Organisms: MRSA Year Discovered:: 2015 MDRO Source:: left leg Past Surgical History: Adenoidectomy, Orthopedic Surgery, Tonsillectomy Additional Past Surgical History / Comment(s): Recent total vulvectomy at [facility] in [facility], L arm dialysis graft/multiple surgeries to repair, R arm fistula, L AKA, L chest port, surgery on L arm and R leg pt thinks to remove blood clots, vulva surgery Past Anesthesia/Blood Transfusion Reactions: No Reported Reaction Additional Past Anesthesia/Blood Transfusion Reaction / Comm: no problems with prior blood transfusions Past Psychological History: Anxiety Smoking Status: Current every day smoker, Light tobacco smoker Past Alcohol Use History: None Reported Past Drug Use History: None Reported - Past Family History Mother Additional Family Medical History / Comment(s): Mother of liver cirrhosis at the age of 34yrs. Father Family Medical History: Eye Disorder Additional Family Medical History / Comment(s): Macular degeneration. He at age 93 family Family Medical History: Unable to Obtain Medications and Allergies Home Medications Medication Instructions Recorded Confirmed Type ALPRAZolam [Xanax] 1 mg PO Q8H PRN 04/18/20 07/30/22 History Atorvastatin [Lipitor] 40 mg PO HS 04/18/20 07/30/22 History Calcium Acetate [PhosLo] 1,334 mg PO TID-W/MEALS 04/18/20 07/30/22 History Insulin Degludec [Tresiba 10 units SQ DAILY 04/18/20 07/30/22 History Flextouch U-100 Pen] Levocetirizine Dihydrochloride 5 mg PO BID 04/18/20 07/30/22 History Levothyroxine Sodium [Synthroid] 150 mcg PO DAILY 04/18/20 07/30/22 History Methadone HCl [Methadone Intensol] 125 mg PO DAILY 04/18/20 07/30/22 History Omeprazole 20 mg PO DAILY 04/18/20 07/30/22 History Furosemide [Lasix] 20 mg PO SUMOWEFR 05/20/20 07/30/22 History Insulin Lispro [humaLOG Kwikpen] See Protocol SQ AC-TID 05/20/20 07/30/22 History Apixaban [Eliquis] 2.5 mg PO BID 12/05/20 07/30/22 History Ammonium Lactate Lotion 1 applic TOPICAL BID PRN 08/28/21 07/30/22 History [Lac-Hydrin 12% Lotion] Lidocaine 5% Oint [Xylocaine 5% 1 applic TOPICAL BID 08/28/21 07/30/22 History Oint] Vit C/E/Zn/Coppr/Lutein/Zeaxan 2 cap PO DAILY 08/28/21 07/30/22 History [Preservision Areds 2 Softgel] Fluticasone/Umeclidin/Vilanter 1 puff INHALATION RT-DAILY 01/01/22 07/30/22 History [Trelegy Ellipta 200-62.5-25] Nephro-Ann 0.8mg 1 cap PO DAILY 01/01/22 07/30/22 History Cholecalciferol [Vitamin D3 (25 50 mcg PO DAILY 02/12/22 07/30/22 History Mcg = 1000 Iu)] Ipratropium [place] 0.06%Nasal 2 spr EA NOSTRIL QID PRN 06/13/22 07/30/22 History [Atrovent Nasal 0.06%] Budesonide-Formot 160-4.5 Mcg 2 puff INHALATION RT-BID 30 Days 06/20/22 07/30/22 Rx [Symbicort 160-4.5 Mcg Inhaler] #1 each Midodrine [ProAmatine] 5 mg PO AC-BID 30 Days #60 tab 06/20/22 07/30/22 Rx Allergies Allergy/AdvReac Type Severity Reaction Status Date / Time pentazocine [From Kimmie] AdvReac Unknown Verified 07/30/22 07:41 Physical Exam Vitals: Vital Signs Temp Pulse Resp BP Pulse Ox FiO2 07/30/22 08:41 98 100 07/30/22 08:30 100 07/30/22 08:00 96.5 F L 98 17 111/68 98 100 07/30/22 07:30 100 28 H 85/69 98 07/30/22 07:00 99 28 H 107/69 99 100 07/30/22 06:30 100 28 H 103/68 98 07/30/22 06:00 108 H 28 H 90/61 99 100 07/30/22 05:30 106 H 28 H 93/66 97 07/30/22 05:00 107 H 28 H 101/69 98 07/30/22 04:50 107 H 16 101/69 98 07/30/22 04:40 107 H 16 99 07/30/22 04:30 111 H 29 H 98 07/30/22 04:27 106 H 97/75 96 07/30/22 04:22 109 H 104/82 99 07/30/22 04:10 110 H 99 07/30/22 03:56 111 H 16 95/71 100 07/30/22 03:45 114 H 16 103/73 99 07/30/22 03:41 113 H 16 102/74 98 07/30/22 03:35 116 H 16 103/74 07/30/22 03:25 118 H 16 103/78 07/30/22 03:20 118 H 16 108/79 97 07/30/22 03:15 100 07/30/22 03:10 122 H 16 111/82 97 07/30/22 03:00 120 H 16 115/80 97 07/30/22 02:55 100 07/30/22 02:52 122 H 14 129/68 94 L Intake and Output 07/29/22 07/30/22 07/30/22 22:59 06:59 14:59 Intake Total 75.34 150 Output Total 0 Balance 75.34 150 Intake: IV 75 150 Sodium Chloride 0.9% 1, 75 150 000 ml @ 75 mls/hr IV . [id number] [place] Rx#:[id number] Intake, IV Titration 0.34 Amount propofoL 1,000 mg In 0.34 Empty Bag 1 bag @ 5 MCG/ KG/MIN 2.041 mls/hr IV . Q24H [place] Rx#:[id number] Output: Urine 0 Other: Weight 68.039 kg GENERAL DESCRIPTION: Elderly female intubated on the vent. HEENT: Shows Pallor , no scleral icterus. Oral mucous membrane is dry. NECK: Trachea central, no thyromegaly. LUNGS: Unlabored breathing. Decreased breath of the base. HEART: S1, S2, regular rate and rhythm. No loud murmur ABDOMEN: Soft, no tenderness , guarding or rigidity, no organomegaly EXTREMITIES: Right fourth toe wound has dried out she did have a wound on the right heel area with no slough tissue no surrounding redness or drainage SKIN: No rash, no masses palpable. NEUROLOGICAL: The patient is sedated on the vent Results CBC & Chem 7: 07/31/22 02:25 07/31/22 02:25 Labs: Abnormal Lab Results - Last 24 Hours (Table) 07/30/22 07/30/22 07/30/22 Range/Units 03:12 03:15 03:44 WBC 20.1 H (3.8-10.6) k/uL Hct 48.0 H (34.0-46.0) % MCV 112.4 H D (80.0-100.0) fL MCHC 29.1 L (31.0-37.0) g/dL Plt Count 120 L (150-450) k/uL Neutrophils # 8.2 H (1.3-7.7) k/uL Lymphocytes # 9.6 H (1.0-4.8) k/uL Basophils # 0.4 H (0-0.2) k/uL Macrocytosis Marked A PT (9.0-12.0) sec INR (<1.2) ABG pH 6.96 L* (7.35-7.45) ABG pCO2 62 H (35-45) mmHg ABG pO2 (83-108) mmHg ABG HCO3 14 L (21-25) mmol/L ABG Total CO2 16 L (19-24) mmol/L ABG O2 Saturation 87.2 L (94-97) % Potassium (3.5-5.1) mmol/L Carbon Dioxide 12 L (22-30) mmol/L BUN 37 H (7-17) mg/dL Creatinine 5.76 H (0.52-1.04) mg/dL Glucose 362 H (74-99) mg/dL POC Glucose (mg/dL) (70-110) mg/dL Plasma Lactic Acid Koby (0.7-2.0) mmol/L Calcium 7.2 L (8.4-10.2) mg/dL Phosphorus (2.5-4.5) mg/dL Magnesium (1.6-2.3) mg/dL AST 76 H (14-36) U/L ALT 48 H (4-34) U/L Alkaline Phosphatase 188 H (38-126) U/L Troponin I (0.000-0.034) ng/mL Total Protein 5.3 L (6.3-8.2) g/dL Albumin 2.6 L (3.5-5.0) g/dL 07/30/22 07/30/22 07/30/22 Range/Units 03:44 03:44 03:44 WBC (3.8-10.6) k/uL Hct (34.0-46.0) % MCV (80.0-100.0) fL MCHC (31.0-37.0) g/dL Plt Count (150-450) k/uL Neutrophils # (1.3-7.7) k/uL Lymphocytes # (1.0-4.8) k/uL Basophils # (0-0.2) k/uL Macrocytosis PT (9.0-12.0) sec INR (<1.2) ABG pH (7.35-7.45) ABG pCO2 (35-45) mmHg ABG pO2 (83-108) mmHg ABG HCO3 (21-25) mmol/L ABG Total CO2 (19-24) mmol/L ABG O2 Saturation (94-97) % Potassium (3.5-5.1) mmol/L Carbon Dioxide (22-30) mmol/L BUN (7-17) mg/dL Creatinine (0.52-1.04) mg/dL Glucose (74-99) mg/dL POC Glucose (mg/dL) (70-110) mg/dL Plasma Lactic Acid Koby 9.8 H* (0.7-2.0) mmol/L Calcium (8.4-10.2) mg/dL Phosphorus 9.6 H* (2.5-4.5) mg/dL Magnesium 2.9 H (1.6-2.3) mg/dL AST (14-36) U/L ALT (4-34) U/L Alkaline Phosphatase (38-126) U/L Troponin I 0.157 H* (0.000-0.034) ng/mL Total Protein (6.3-8.2) g/dL Albumin (3.5-5.0) g/dL 07/30/22 07/30/22 07/30/22 Range/Units 03:47 03:48 05:57 WBC (3.8-10.6) k/uL Hct (34.0-46.0) % MCV (80.0-100.0) fL MCHC (31.0-37.0) g/dL Plt Count (150-450) k/uL Neutrophils # (1.3-7.7) k/uL Lymphocytes # (1.0-4.8) k/uL Basophils # (0-0.2) k/uL Macrocytosis PT 14.5 H (9.0-12.0) sec INR 1.4 H (<1.2) ABG pH (7.35-7.45) ABG pCO2 (35-45) mmHg ABG pO2 (83-108) mmHg ABG HCO3 (21-25) mmol/L ABG Total CO2 (19-24) mmol/L ABG O2 Saturation (94-97) % Potassium (3.5-5.1) mmol/L Carbon Dioxide (22-30) mmol/L BUN (7-17) mg/dL Creatinine (0.52-1.04) mg/dL Glucose (74-99) mg/dL POC Glucose (mg/dL) 377 H (70-110) mg/dL Plasma Lactic Acid Koby (0.7-2.0) mmol/L Calcium (8.4-10.2) mg/dL Phosphorus (2.5-4.5) mg/dL Magnesium (1.6-2.3) mg/dL AST (14-36) U/L ALT (4-34) U/L Alkaline Phosphatase (38-126) U/L Troponin I 0.531 H* (0.000-0.034) ng/mL Total Protein (6.3-8.2) g/dL Albumin (3.5-5.0) g/dL 07/30/22 07/30/22 Range/Units 05:57 07:59 WBC (3.8-10.6) k/uL Hct (34.0-46.0) % MCV (80.0-100.0) fL MCHC (31.0-37.0) g/dL Plt Count (150-450) k/uL Neutrophils # (1.3-7.7) k/uL Lymphocytes # (1.0-4.8) k/uL Basophils # (0-0.2) k/uL Macrocytosis PT (9.0-12.0) sec INR (<1.2) ABG pH 7.06 L* (7.35-7.45) ABG pCO2 (35-45) mmHg ABG pO2 185 H (83-108) mmHg ABG HCO3 12 L (21-25) mmol/L ABG Total CO2 14 L (19-24) mmol/L ABG O2 Saturation 98.6 H (94-97) % Potassium 5.4 H (3.5-5.1) mmol/L Carbon Dioxide (22-30) mmol/L BUN (7-17) mg/dL Creatinine (0.52-1.04) mg/dL Glucose (74-99) mg/dL POC Glucose (mg/dL) (70-110) mg/dL Plasma Lactic Acid Koby (0.7-2.0) mmol/L Calcium (8.4-10.2) mg/dL Phosphorus (2.5-4.5) mg/dL Magnesium (1.6-2.3) mg/dL AST (14-36) U/L ALT (4-34) U/L Alkaline Phosphatase (38-126) U/L Troponin I (0.000-0.034) ng/mL Total Protein (6.3-8.2) g/dL Albumin (3.5-5.0) g/dL Microbiology - Last 24 Hours (Table) 07/30/22 06:25 Sputum Culture - Preliminary Sputum Assessment and Plan (1) Osteomyelitis of right foot Status: Acute Code(s): M86.9 - OSTEOMYELITIS, UNSPECIFIED SNOMED Code(s): 3606122578365856 Plan: 1patient presented to hospital with an episode of unresponsiveness with a cardiac arrest outside the hospital s/p resuscitation has been admitted to the ICU with evidence of left-sided consolidation concerning for possible aspiration pneumonia. 2patient with a recent history of right fourth toe osteomyelitis with local culture positive for staph epi and anaerobes for the patient was getting her vancomycin right fourth toe wound is almost healed and no significant redness or drainage was noticed, to continue with the vancomycin and will check inflammatory markers. 3sputum cultures obtained will be followed 4right heel wound with no slough tissue or surrounding redness local care with a dry Aquacel silver dressing keep the area of the pressure We will follow on clinical condition and cultures to further adjust medication if needed Thank you for this consultation we will follow the patient along with you Time with Patient: Greater than 30
[2022-07-31] MEDS ORDERED: PIPERACILLIN-TAZOBACTAM 3.375 GM in SODIUM CHLORIDE 0.9% 100 ML IVPB SCH ×2
[2022-07-31] MEDS: INSULIN ASPART (NovoLOG) 100 UNIT/ML VIAL SQ SCH (01:44)
[2022-07-31 02:06] VITALS: RESP 28
[2022-07-31 02:45] LABS: Basophils # (A) 0.1 k/uL (0-0.2); Basophils % (A) 1 %; Eosinophils # (A) 0.1 k/uL (0-0.7); Eosinophils % (A) 0 %; HCT 50.9 % (34.0-46.0); HGB 16.2 gm/dL (11.4-16.0); Hypochromasia Slight; Lymphocytes # (A) 1.2 k/uL (1.0-4.8); Lymphocytes % (A) 6 %; MCH 33.2 pg (25.0-35.0); MCHC 31.9 g/dL (31.0-37.0); MCV 104.1 fL (80.0-100.0); Macrocytosis Moderate; Mean Platelet Volume 10.4; Monocytes # (A) 0.9 k/uL (0-1.0); Monocytes % (A) 4 %; Neutrophils # (A) 19.4 k/uL (1.3-7.7); Neutrophils % (A) 88 %; Platelet Count 151 k/uL (150-450); RBC 4.89 m/uL (3.80-5.40); RDW 14.6 % (11.5-15.5); WBC 22.1 k/uL (3.8-10.6)
[2022-07-31 03:01] LABS: Calcium 8.7 mg/dL (8.4-10.2); Total Bilirubin 1.1 mg/dL (0.2-1.3); Total Protein 6.2 g/dL (6.3-8.2)
[2022-07-31 03:03] LABS: Potassium 5.5 mmol/L (3.5-5.1)
[2022-07-31 03:42] LABS: Glucose,Whole Blood 61 mg/dL (70-110)
[2022-07-31] MEDS ORDERED: DEXTROSE 50% SYRINGE 50 ML IVP ONE ×3 (03:42→07:21)
[2022-07-31 04:05] VITALS: TEMP 99.1
[2022-07-31 04:05] LABS: Glucose,Whole Blood 159 mg/dL (70-110)
[2022-07-31 05:04] VITALS: PULSE 118
[2022-07-31 05:53] LABS: Glucose,Whole Blood 100 mg/dL (70-110)
[2022-07-31 06:06] VITALS: BP 87/58
[2022-07-31] MEDS: NOREPINEPHRINE 8 MG in SODIUM CHLORIDE 0.9% 250 ML IV SCH (06:31)
[2022-07-31 06:42] LABS: Glucose,Whole Blood 73 mg/dL (70-110)
[2022-07-31] MEDS ORDERED: CALCIUM CHLORIDE 100 MG/ML 10 ML SYRINGE ONE ×2 (07:05)
[2022-07-31] MEDS ORDERED: AMIODARONE 50 MG/ML 3 ML VIAL IV ONE (07:05)
[2022-07-31] MEDS ORDERED: SODIUM BICARB 8.4% 50 ML SYR (1 MEQ/ML) ONE ×3 (07:05→07:39)
[2022-07-31] MEDS ORDERED: DEXTROSE 5% IN WATER 50 ML BAG ONE (07:05)
[2022-07-31] MEDS ORDERED: MAGNESIUM SULFATE SYG 4.06 MEQ/ML SYRINGE ONE (07:05)
[2022-07-31] MEDS ORDERED: EPINEPHrine 10 ML SYRINGE (0.1 MG/ML) ONE ×2 (07:05)
--- NOTE | 2022-07-31 07:09 | CA ---
Transthoracic Echo Report Name: Raquel Luevano Age: 72 Gender: F : 1950 Exam Date: 07/30/2022 10:14 Exam Location: [facility] Ht (in): 64 Wt (lb): 150 Ordering Physician: Bri Guillen DO Attending/Referring Phys: [id number], Mindy Shearing Shed Hand Dee Osborne RDCS Procedure CPT: Indications: Cardiac Arrest Cardiac Hx: Technical Quality: Technically difficult study Contrast 1: Total Dose (mL): Contrast 2: Total Dose (mL): MEASUREMENTS (Male / Female) Normal Values M-MODE Aortic Root Diameter MM 3.5 cm AV Cusp Separation MM 2.1 cm DOPPLER AV Peak Velocity 85.0 cm/s AV Peak Gradient 2.9 mmHg LVOT Peak Velocity 77.5 cm/s LVOT Peak Gradient 2.4 mmHg MV Area PHT 6.5 cm??? MR Peak Velocity 301.5 cm/s MR Peak Gradient 36.4 mmHg Mitral E Point Velocity 87.3 cm/s Mitral A Point Velocity 34.4 cm/s Mitral E to A Ratio 2.5 MV Deceleration Time 117.1 ms TR Peak Velocity 264.3 cm/s TR Peak Gradient 27.9 mmHg Right Atrial Pressure 8.0 mmHg Pulmonary Artery Systolic Pressu 35.9 mmHg Right Ventricular Systolic Press 35.9 mmHg FINDINGS Left Ventricle Abnormal left ventricular diastolic filling pattern. Sigmoidal septum. Septum thickened. Right Ventricle Severely reduced right ventricular global systolic function. Mild pulmonary hypertension. Right Atrium Right atrium not well visualized. Left Atrium Normal left atrial size. Mitral Valve Mild mitral regurgitation. Aortic Valve Aortic valve not well visualized. Trace aortic regurgitation. No aortic stenosis. Tricuspid Valve Mild tricuspid regurgitation. Pulmonic Valve Structurally normal pulmonic valve. Pericardium No pleural effusion. Pleural effusion measuring 8cm. Aorta Normal size aortic root and proximal ascending aorta. CONCLUSIONS Severe LV dysfunction EF less than 10% Left ventricle is mostly akinetic Hypercontractile RV Elevated left atrial pressures Previewed by: Dr. Vin Fields MD (Electronically Signed) Final Date: 31 July 2022 07:09
--- NOTE | 2022-07-31 07:27 | XR ---
EXAMINATION TYPE: XR chest 1V portable DATE OF EXAM: 07/31/2022 6:20 AM COMPARISON: Chest radiograph from one day prior. TECHNIQUE: XR chest 1V portable Portable AP radiograph of the chest. CLINICAL INDICATION:Female, 72 years old with history of Tube placement; FINDINGS: Lungs/Pleura: Improved aeration of the lungs on today's exam. There is flattening of the diaphragm wi th increased lucency of the lungs. No evidence of pneumothorax, pleural effusion. Streaky atelectasis in the bases. Pulmonary vascularity: Unremarkable. Heart/mediastinum: Cardiomediastinal silhouette is unremarkable. Musculoskeletal: No acute osseous pathology. Other findings: None Lines/Tubes: Endotracheal tube with distal tip 4.3 cm above the indigo. Interval placement of nasogastric and side-port projecting under the diaphragm. IMPRESSION: 1. Improved aeration of the lungs with Appropriate placement of support tubes 2. COPD changes.
[2022-07-31] MEDS ORDERED: DEXTROSE 5% IN WATER 1,000 ML with SODIUM BICARB (1 MEQ/ML) 150 ML IV SCH (07:30)
[2022-07-31] MEDS ORDERED: AMIODARONE 360 MG in DEXTROSE 5% IN WATER 200 ML IV ONE ×2 (07:30)
[2022-07-31 07:42] LABS: Glucose,Whole Blood 150 mg/dL (70-110)
[2022-07-31] MEDS ORDERED: VASOPRESSIN 60 UNIT in SODIUM CHLORIDE 0.9% 150 ML IV SCH (07:45)
--- NOTE | 2022-07-31 07:58 | P.PN ---
Progress Note - Text Progress Note Date: 07/31/22 72-year-old female patient was cardiac arrest was another cardiac arrest this morning. Note that the patient was quite stable and the patient underwent hemodialysis yesterday. noted that hemodialysis was complicated by development of hypotension. She was unable to perform a full dialysis and the plan was to repeat dialysis this morning. Overnight, the patient was on pressors and the patient was on norepinephrine initially at 0.04 mcg/kg/m, and shebecame more hypotensive requiring high doses of pressors. Note that the morning chest x-ray showed clearing of the bilateral pulmonary infiltrates and as such the pulmonary infiltrates are most likely interstitial edema/fluids. Chest x-ray from this morning was essentially clear and the tube was in a good location. Echocardiogram was also done yesterday and the patient had markedly reduced left ventricle ejection fraction which was under 10%. The patient remains stable he'll morning when she started having progressive cardia and ultimately she went into a PEA rhythm and will lost a pulse and a blood pressure. noted the patient was having progressive widening of the QRS throughout the night. Her pressor requirements were also going up. Cardiology was involved. The patient was given bicarb and D50 along with insulin. Potassium level remained at 5.5. At that point, CPR was started and resuscitation was continued based on the ACLS protocol. Initial rhythm was PEA and there was no pulse. CPR was applied and the patient was given epinephrine. Immediately labs from this morning showed that the patient's potassium level was at 5.5 and the rest of the rest of the electrolytes showed a sodium level of 141, bicarb level of 17, BUN was 45 with a creatinine of 6.07. The patient's WBC count was 22 with a hemoglobin of 16.2 and a platelet count of 151. Blood gases were not done yet.during the CODE BLUE, the patient went into ventricular tachycardia. She required defibrillation with 200 J and a total of 6 shocks were given. The patient received a total of 6 doses of epinephrine, 2 doses of calcium, total of 6 doses of sodium bicarb and 2 g of magnesium. CPR was continued. During the process, no pulse was recovered. amiodarone was also given during the CODE BLUE, a total of 300 mg boluses and she was started also on a maintenance. Ultimately, the patient and she was declared at 7:39 AM. The cold started at 7:05 AM. The daughter is at the bedside. obviously, this is acute cardiac event. I discussed the case with her daughter.she probably sustained an acute and STEMI. Troponin peaked at 2.5 and she had developed severe cardiomyopathy with an ejection fraction of less than 10% with subsequent cardiac arrest.
--- NOTE | 2022-07-31 08:04 | P.EN ---
CODE BLUE Indication: PEA 704 Initially on propofol, lev at 0.5 mcg/kg/min. Potassium 5.5., Bicarb 17, Glucose 73. ECHO with EF <10% , Max troponin was 2.59 and was the last one drawn. Arrived on Scene to find: CPR in progress Initial Rhythm: V-tach Code Course: Epi X 6 Bicarb X 6 Defib X 4 Cardioversion X 2 D50 X 2 Calcium Chloride X 2 Magnesium 2 grams Amio 300 X 1, 150 X1, and then 1 gtt CHes was intially in PEA and then developed V-tach (708) and then V fib, she had ROSC at 727 with a blood presure of 80/54 she maintained ROSC uuntil 0735 when she again was in PEA, time of 738. For details see code blue note. Time of : 738 Pupils fixed, dilated, absent cardic and breath sounds Notified: Daughter at bedsdied and updated when patient had a breif peirod of ROSC, she then wanted to enter the room and was there during the final time when she lost pulses. Dr. Clark at bedside at the end of code A Total of 40 minutes of critical care time was spent on the complex care of this patient. This dictation was prepared using [employer] voice recognition software. Though every attempt is made to correct errors during during dictation some may still exist.
--- NOTE | 2022-07-31 08:07 | P.DS ---
Providers Date of admission: 07/30/22 05:22 Expected date of discharge: 07/31/22 Attending physician: Araceli Bay MD Consults: 07/30/22 05:14 Consult Physician Urgent Consulting Provider: Lorena Clark Consult Reason/Comments: cardiac arrest Do you want consulting provider notified?: Already Contacted Consult Physician Urgent Consulting Provider: Chemo Hernandez Consult Reason/Comments: dialysis Do you want consulting provider notified?: Yes 07/30/22 09:04 Consult Physician Routine Consulting Provider: Ayad Niño Consult Reason/Comments: Cardiac arrest with downtime Do you want consulting provider notified?: Yes 07/30/22 09:05 Consult Physician Routine Consulting Provider: Cassidy Felix Consult Reason/Comments: osteomyelitis Do you want consulting provider notified?: Yes 07/30/22 09:07 Consult Physician Routine Consulting Provider: Monique Mccoy Consult Reason/Comments: cardiac arrest, PKTY Do you want consulting provider notified?: Yes Primary care physician: Souleymane Shah [facility] Hospital Course: Discharge Diagnosis: Cardiac arrest NSTEMI Cardiogenic shock V-tach PEA out of hospital arrest Acute hypoxic respiratory failure Pneumonia, complicated by intubation Acute encepahlopathy, likely metabolic- intermittently following commands Right foot osteomyelitis- heal and 4th toe- was on vanco with HD as outpatient End-stage renal disease Diabetes mellitus type 2 with hyperglycemia Type II NSTEMI Thrombocytopenia ESRD on HD t//fri Paroxysmal A fib HTN HLD Cancer of the vulva COPD without exacerbation 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 Upon EMS arrival the patient was an PEA, CPR was started in the field. Upon arrival to the emergency department she had regained a pulse she was subsequently intubated and placed on mechanical ventilation. She was known to have wide complex tachycardia and was given 1 g of calcium chloride. Analysis was remarkable for white blood cell count 20.1, platelets 120, BUN 37, creatinine 5.76, glucose 362, calcium 7.2, AST 76, ALT 48, alkaline phosphatase 188, troponin 0.157, and albumin of 2.7. Initial ABG showed a pH of 6.96 pCO2 [address] of [address] head showed cerebral atrophy with no acute intracranial abnormality and the CT scan of her cervical spine showed no acute fracture. Chest x-ray showed possible left sided upper lobe infiltrate. Admitted to the ICU. Critical care was consulted for ventilator management and nephrology was consulted for resumption of dialysis. They attempted to preform HD on 07/30 but she became hypotensive. Her Levo requirements were increasing overnight. Overnight on 07/30 her troponin elevated and cardio was contacted with no further orders. She had an episode of hypoglycemia at 63 which was treated with 1 amp of D50. Insulin, dextrose, and calcium were given for her potassium of 5.5. Her echo came back with EF <10%. She went into cardiac arrest at 0705 and had time of 0739. Patient on 07/31/22. This dictation was prepared using [employer] voice recognition software. Though every attempt is made to correct errors during during dictation some may still exist. Plan - Discharge Summary Discharge Rx Participant: No New Discharge Prescriptions: No Action Insulin Degludec [Tresiba Flextouch U-100 Pen] 10 units SQ DAILY Omeprazole 20 mg PO DAILY Levothyroxine Sodium [Synthroid] 150 mcg PO DAILY Levocetirizine Dihydrochloride 5 mg PO BID Atorvastatin [Lipitor] 40 mg PO HS Calcium Acetate [PhosLo] 1,334 mg PO TID-W/MEALS ALPRAZolam [Xanax] 1 mg PO Q8H PRN PRN Reason: Anxiety Methadone HCl [Methadone Intensol] 125 mg PO DAILY Insulin Lispro [humaLOG Kwikpen] See Protocol SQ AC-TID Furosemide [Lasix] 20 mg PO SUMOWEFR Fluticasone/Umeclidin/Vilanter [Trelegy Ellipta 200-62.5-25] 1 puff INHALATION RT-DAILY Nephro-Ann 0.8mg 1 cap PO DAILY Cholecalciferol [Vitamin D3 (25 Mcg = 1000 Iu)] 50 mcg PO DAILY Ipratropium [place] 0.06%Nasal [Atrovent Nasal 0.06%] 2 spr EA NOSTRIL QID PRN PRN Reason: Allergy Symptoms Midodrine [ProAmatine] 5 mg PO AC-BID 30 Days #60 tab Apixaban [Eliquis] 2.5 mg PO BID Ammonium Lactate Lotion [Lac-Hydrin 12% Lotion] 1 applic TOPICAL BID PRN PRN Reason: Dry Skin Vit C/E/Zn/Coppr/Lutein/Zeaxan [Preservision Areds 2 Softgel] 2 cap PO DAILY Lidocaine 5% Oint [Xylocaine 5% Oint] 1 applic TOPICAL BID Budesonide-Formot 160-4.5 Mcg [Symbicort 160-4.5 Mcg Inhaler] 2 puff INHALATION RT-BID 30 Days #1 each Discharge Medication List ALPRAZolam [Xanax] 1 mg PO Q8H PRN 04/18/20 [History] Atorvastatin [Lipitor] 40 mg PO HS 04/18/20 [History] Calcium Acetate [PhosLo] 1,334 mg PO TID-W/MEALS 04/18/20 [History] Insulin Degludec [Tresiba Flextouch U-100 Pen] 10 units SQ DAILY 04/18/20 [History] Levocetirizine Dihydrochloride 5 mg PO BID 04/18/20 [History] Levothyroxine Sodium [Synthroid] 150 mcg PO DAILY 04/18/20 [History] Methadone HCl [Methadone Intensol] 125 mg PO DAILY 04/18/20 [History] Omeprazole 20 mg PO DAILY 04/18/20 [History] Furosemide [Lasix] 20 mg PO SUMOWEFR 05/20/20 [History] Insulin Lispro [humaLOG Kwikpen] See Protocol SQ AC-TID 05/20/20 [History] Apixaban [Eliquis] 2.5 mg PO BID 12/05/20 [History] Ammonium Lactate Lotion [Lac-Hydrin 12% Lotion] 1 applic TOPICAL BID PRN 08/28/21 [History] Lidocaine 5% Oint [Xylocaine 5% Oint] 1 applic TOPICAL BID 08/28/21 [History] Vit C/E/Zn/Coppr/Lutein/Zeaxan [Preservision Areds 2 Softgel] 2 cap PO DAILY 08/28/21 [History] Fluticasone/Umeclidin/Vilanter [Trelegy Ellipta 200-62.5-25] 1 puff INHALATION RT-DAILY 01/01/22 [History] Nephro-Ann 0.8mg 1 cap PO DAILY 01/01/22 [History] Cholecalciferol [Vitamin D3 (25 Mcg = 1000 Iu)] 50 mcg PO DAILY 02/12/22 [History] Ipratropium [place] 0.06%Nasal [Atrovent Nasal 0.06%] 2 spr EA NOSTRIL QID PRN 06/13/22 [History] Budesonide-Formot 160-4.5 Mcg [Symbicort 160-4.5 Mcg Inhaler] 2 puff INHALATION RT-BID 30 Days #1 each 06/20/22 [Rx] Midodrine [ProAmatine] 5 mg PO AC-BID 30 Days #60 tab 06/20/22 [Rx] Follow up Appointment(s)/Referral(s): Souleymane Celaya DO [Primary Care Provider] - 1-2 days
[2022-07-31] MEDS ORDERED: VANCOMYCIN 1,250 MG in SODIUM CHLORIDE 0.9% 250 ML IVPB ONE (09:00)
[2022-07-31] MEDS ORDERED: AMIODARONE 450 MG in DEXTROSE 5% IN WATER 250 ML IV SCH ×2 (13:30)
== END 2022-07-31 12:00 | disposition expired | DRG 208 ==
LOC: EC 02:52 → 2SICU 05:22
PROVIDERS: ADMIT Internal Medicine; ATTEND Internal Medicine
PROC: 5A1945Z Respiratory Ventilation, 24-96 Consecutive Hours (ICD-10-PCS; principal; 2022-07-30)
PROC: 0BH17EZ Insertion of Endotracheal Airway into Trachea, Via Natural or Artificial Opening (ICD-10-PCS; principal; 2022-07-30)
PROC: 06HY33Z Insertion of Infusion Device into Lower Vein, Percutaneous Approach (ICD-10-PCS; principal; 2022-07-30)
PROC: 3E033XZ Introduction of Vasopressor into Peripheral Vein, Percutaneous Approach (ICD-10-PCS; 2022-07-30)
PROC: 5A1D70Z Performance of Urinary Filtration, Intermittent, Less than 6 Hours Per Day (ICD-10-PCS; 2022-07-30)
PROC: 5A12012 Performance of Cardiac Output, Single, Manual (ICD-10-PCS; 2022-07-31)
DX: J96.01 Acute respiratory failure with hypoxia (principal); I21.A1 Myocardial infarction type 2; G93.41 Metabolic encephalopathy; J18.9 Pneumonia, unspecified organism; N18.6 End stage renal disease; I13.2 Hypertensive heart and chronic kidney disease with heart failure and with stage 5 chronic kidney disease, or end stage renal disease; E87.4 Mixed disorder of acid-base balance; L03.115 Cellulitis of right lower limb; J44.0 Chronic obstructive pulmonary disease with (acute) lower respiratory infection; M86.8X6 Other osteomyelitis, lower leg; I47.20 Ventricular tachycardia, unspecified; I42.9 Cardiomyopathy, unspecified; I50.32 Chronic diastolic (congestive) heart failure; J96.02 Acute respiratory failure with hypercapnia; R57.0 Cardiogenic shock; I46.2 Cardiac arrest due to underlying cardiac condition; H54.8 Legal blindness, as defined in USA; G89.29 Other chronic pain; D69.6 Thrombocytopenia, unspecified; E11.22 Type 2 diabetes mellitus with diabetic chronic kidney disease; E11.51 Type 2 diabetes mellitus with diabetic peripheral angiopathy without gangrene; G31.89 Other specified degenerative diseases of nervous system; I08.3 Combined rheumatic disorders of mitral, aortic and tricuspid valves; E11.649 Type 2 diabetes mellitus with hypoglycemia without coma; E11.65 Type 2 diabetes mellitus with hyperglycemia; E11.69 Type 2 diabetes mellitus with other specified complication; F41.9 Anxiety disorder, unspecified; E78.5 Hyperlipidemia, unspecified; I44.7 Left bundle-branch block, unspecified; I48.0 Paroxysmal atrial fibrillation; I49.01 Ventricular fibrillation; M19.90 Unspecified osteoarthritis, unspecified site; M41.9 Scoliosis, unspecified; Z20.822 Contact with and (suspected) exposure to COVID-19; Z79.01 Long term (current) use of anticoagulants; Z79.51 Long term (current) use of inhaled steroids; Z79.890 Hormone replacement therapy; Z79.899 Other long term (current) drug therapy; Z85.44 Personal history of malignant neoplasm of other female genital organs; Z89.612 Acquired absence of left leg above knee; Z99.2 Dependence on renal dialysis; Z79.4 Long term (current) use of insulin
CPT/HCPCS: 31500; 36415; 36556; 36600; 70450; 71045; 72125; 80053; 82310; 82805; 83605; 83735; 83880; 84100; 84132; 84484; 85025; 85610; 85730; 87040; 87070; 87205; 87635; 90935; 93005; 93306; 94640; 95816; 96374; 99291